=== PATIENT | male | born 2000 | race Caucasian/White ===

== ENCOUNTER 2024-08-14 14:00 | Emergency (ER) | payer SELFPAY ==
[2024-08-14 14:09] VITALS: BP 145/96; PULSE 134; TEMP 37; O2SAT 99; BMI 22.4
--- NOTE | 2024-08-14 14:43 | CT_ITS ---
[address] [address] Patient Name: ISAIAS ESTRELLA MRN: [id number] date: 2000 Sex: M Assigned Patient Location: ER Current Patient Location: Accession/Order Number: [id number] Exam Date: 08/14/2024 15:59 Report Date: 08/14/2024 16:54 At the request of: MARBELLA DELAROSA Procedure: CT abdomen pelvis w con EXAM: CT abdomen pelvis w con REASON FOR EXAM: Male, 24 years, R lower abd pain R leg pain. TECHNIQUE: Computed tomography of the abdomen and pelvis is performed in the axial projection from the lung bases to the pubic symphysis. Sagittal and coronal reconstructed images are performed. Dose reduction techniques were achieved by using automated exposure control and/or adjustment of mA and/or KVP according to patient size and/or use of iterative reconstruction technique. A total of 100 mL Omnipaque 300 IV contrast was given. Study was performed without oral contrast. COMPARISON: CT of the lumbar spine, same date FINDINGS: Lung bases: There is a 4 to 5 mm nodule at the left lung base. There is no pleural effusion. The visualized portions of the heart are unremarkable. Liver: The liver is normal. Gallbladder: The gallbladder is normal. Spleen: The spleen is normal. Pancreas: The pancreas is normal. Adrenal glands: The adrenal glands are normal bilaterally. Right kidney: The kidney is normal in size. There is no renal calculus or hydronephrosis. Left kidney: The kidney is normal in size. There is no renal calculus or hydronephrosis. Stomach: The stomach is normal. Small bowel: The small bowel is normal. Large bowel: There is a moderate amount of stool throughout the colon. Appendix: The appendix is not visualized. No right lower quadrant inflammatory changes are seen to suggest acute appendicitis. Aorta: The aorta is normal. IVC: The IVC is normal. Retroperitoneum: There is enlargement of the right iliac is muscle, with an irregular low-attenuation collection noted. The central portion of the collection measures approximately 7.1 x 4 x 12.5 cm. This extends inferiorly to the insertion of the proximal right femur. Bladder: The bladder is normal. There is a small amount of free fluid within the pelvis. Pelvic organs: Normal prostate gland. Abdominal wall: Normal abdominal wall. Osseous structures: There is bilateral L5 spondylolysis with minimal anterolisthesis at L5-S1. CT/CT abdomen pelvis w con IMPRESSION: Prominent low-attenuation collection within the right iliac is muscle. Differential considerations include hematoma and abscess. This finding was discussed with the emergency physician by the radiologist who interpreted the lumbar spine CT performed the same date. Therefore, an additional critical results notification was not made. Additional findings, as described above. Electronically authenticated by: PAULA RIVERA Date: 08/14/2024 16:54
--- NOTE | 2024-08-14 14:43 | CT_ITS ---
[facility] [place] [id number] Patient Name: ISAIAS ESTRELLA MRN: [id number] date: 2000 Sex: M Assigned Patient Location: ER Current Patient Location: [facility] Accession/Order Number: [id number] Exam Date: 08/14/2024 15:59 Report Date: 08/14/2024 16:48 At the request of: MARBELLA DELAROSA Procedure: CT lumbar spine wo con EXAM: CT lumbar spine wo con HISTORY: low back pain radiating pain into the right groin for one week. COMPARISON: CT of the pelvis on 08/24/2024. TECHNIQUE: Axial CT scans of the lumbar spine were obtained without contrast. MPR images were obtained. Dose reduction techniques were achieved by using: automated exposure control and/or adjustment of mA and /or kV according to patient size and/or use of iterative reconstruction technique. FINDINGS: From T12 to L5, no abnormality. At L5-S1, grade 1 spondylolysis spondylolisthesis of L5 on S1 with mild stenosis of the right neural foramen. SI joints appear intact. An abnormal incompletely imaged low attenuated lesion in the right iliacus muscle is suspicious for an abscess. The visualized retroperitoneum shows no adenopathy. CT/CT lumbar spine wo con IMPRESSION: An abnormal incompletely imaged low attenuated lesion in the right iliacus muscle is suspicious for an abscess. On the CT of the pelvis, it measures about 4.2 x 7.2 x 10 cm. At L5-S1, grade 1 spondylolysis spondylolisthesis of L5 on S1 with mild stenosis of the right neural foramen. Electronically authenticated by: MELLISSA DEL CASTILLO Date: 08/14/2024 16:48
[2024-08-14] MEDS: 0.9 % SODIUM CHLORIDE 1,000 ML 1000 ML IV (15:11)
[2024-08-14 15:13] LABS: Basophils Absolute Auto 0.1 10^3/uL (0.0-0.1); Basophils Percent Auto 0.3 % (0.2-2.0); Eosinophils Percent Auto 0.1 % (0.9-7.0); Hematocrit 36.9 % (42.0-54.0); Hemoglobin 12.7 g/dL (14.0-18.0); Immature Granulocytes Abs Auto 0.11 10^3/uL (0.00-0.03); Immature Granulocytes Pct Auto 0.7 % (0.0-0.5); Lymphocytes Absolute Auto 0.9 10^3/uL (1.2-3.8); Lymphocytes Percent Auto 5.4 % (20.5-60.0); Mean Corpuscular HGB Conc 34.4 g/dL (29.9-35.2); Mean Corpuscular Hemoglobin 33.6 pg (25.9-34.0); Mean Corpuscular Volume 97.6 fL (80.0-94.0); Mean Platelet Volume 8.6 fL (9.5-13.5); Monocytes Absolute Auto 1.1 10^3/uL (0.3-0.8); Monocytes Percent Auto 6.6 % (1.7-12.0); Neutrophils Absolute Auto 13.9 10^3/uL (1.4-6.5); Neutrophils Percent Auto 86.9 % (43.0-75.0); Platelet Count 338 10^3/uL (150-450); Red Blood Count 3.78 10^6/uL (4.70-6.10)
[2024-08-14] MEDS: DIAZEPAM 10 MG/2 ML SYRINGE 2.5 MG IV ×2 (15:13→15:41)
[2024-08-14] MEDS: KETOROLAC TROMETHAMINE 30 MG/ML VIAL 15 MG IVP (15:14)
--- NOTE | 2024-08-14 15:23 | ED_ITS ---
HPI HPI - General Adult General Chief complaint: Extremity Problem, Nontraumatic Stated complaint: LEG PAIN INTO BACK Time Seen by Provider: 08/14/24 14:38 Source: patient Mode of arrival: walk-in Limitations: no limitations History of Present Illness HPI narrative: Patient presents to ED complaining of right groin pain that also is in the right back and right testicle. Patient states he has been evaluated at 2 other hospitals for the same issue. He said he was recently evaluated and told that he had a subdural hematoma and also muscle spasms by the other hospital. He was given gabapentin from 1 hospital and said it is not working. He said his right leg is so tense that he can only lift his leg up and he cannot straighten it out. He said he has pain radiating in his back low back and right testicle. No swelling to the right testicle. He did say he had an ultrasound of the right testicle and it did not show anything abnormal. He denies any urinary difficulties or difficulty with bowel movements. He has normal distal sensation and pulses in both lower extremities. On arrival he is hypertensive tachycardic anxious stressed crying and in pain. Patient's friend who is with him said he has been writhing around crying for the past 8 hours because of this pain. Patient said he did not have any specific injury at work but he does lift heavy things he thought maybe he injured at work but nothing specific no fall no acute known trauma. Related Data Home Medications ?Medication ?Instructions ?Recorded ?Confirmed blood-glucose sensor (FreeStyle 08/14/24 08/14/24 Edbbie 3 Plus Sensor device) gabapentin 100 mg capsule 100 mg PO DAILY 08/14/24 08/14/24 insulin glargine 100 unit/mL (3 15 unit subcut DAILY 08/14/24 08/14/24 mL) subcutaneous pen (Lantus Solostar U-100 Insulin) insulin lispro 100 unit/mL 1 sliding scale dose subcut QID 08/14/24 08/14/24 subcutaneous pen (Humalog KwikPen (U-100) Insulin) Allergies Allergy/AdvReac Type Severity Reaction Status Date / Time No Known Drug Allergies Allergy Verified 08/14/24 14:09 Opioid HPI Opioid Management Most Recent Opioid Data: No Data to Display Review of Systems ROS Status of ROS 10 or more systems reviewed and unremark able except as noted in history and below PFSH PFSH Social History Little interest or pleasure in doing things: not at all Feeling down, depressed, or hopeless: not at all Exam Narrative Exam Narrative: Time Seen: [] Vital Signs: [Per nurse's notes.] General: [Alert] severe distress anxious crying Skin: [Warm, dry, no rash.] Head: [Normocephalic, atraumatic.] Neck: [Supple, trachea midline.] Eye: [Pupils are equal, round and reactive to light, extraocular movements are intact, normal conjunctiva.] Ears, nose, mouth and throat: oral mucosa moist. Cardiovascular: [Regular rate and rhythm, no murmur.] Respiratory: [Lungs are clear to auscultation, respirations are non-labored, breath sounds are equal.] Chest wall: [No tenderness, no deformity.] Gastrointestinal: [Soft, right lower quadrant abdominal pain, non distended, normal bowel sounds.] MSK: 5 out of 5 muscle strength x 4 extremities no calf pain or shabbir. Normal distal pulses and sensation bilateral lower extremities. Patient has tenderness to palpation in the right groin area right lower abdomen and right upper thigh. Lymphatics: [No lymphadenopathy.] Psychiatric: [Cooperative, appropriate mood & affect.] Neurological: [Alert and oriented to person, place, time, and situation, no focal neurological deficit observed.] Constitutional Vital Signs, click to edit/add: Last Vital Signs Temp 98.6 F 08/14/24 14:09 Pulse 112 H 08/14/24 18:36 Resp 22 H 08/14/24 18:36 BP 132/98 H 08/14/24 18:36 Pulse Ox 100 08/14/24 18:36 O2 Del Method Room Air 08/14/24 18:36 Course Vital Signs Vital signs: Vital Signs Temperature 98.6 F 08/14/24 14:09 Pulse Rate 134 H 08/14/24 14:09 Respiratory Rate 26 H 08/14/24 14:09 Blood Pressure 145/96 H 08/14/24 14:09 Pulse Oximetry 99 08/14/24 14:09 Oxygen Delivery Method Room Air 08/14/24 14:09 Temperature 98.6 F 08/14/24 14:09 Pulse Rate 112 H 08/14/24 18:36 Respiratory Rate 22 H 08/14/24 18:36 Blood Pressure 132/98 H 08/14/24 18:36 Pulse Oximetry 100 08/14/24 18:36 Oxygen Delivery Method Room Air 08/14/24 18:36 Medical Decision Making MDM Narrative Medical decision making narrative: Patient's white blood cell count lactate sed rate and CRP were elevated. I had ordered the CAT scan concerned about an intra-abdominal or possibly a septic joint type of picture. The CAT scan came back with an iliac us abscess. Patient was started on IV antibiotics after blood cultures and lactate were drawn. Patient was given IV fluids. He was also given Dilaudid and Valium as needed for pain and muscle spasms. I spoke to the radiologist about the CAT scan report. I then called [facility] and spoke to interventional radiology and they said they can drain this tomorrow after reviewing the films. I then spoke to Dr. Tere Alamo for the hospitalist who will admit the patient for IV antibiotics and management throughout the evening until IR is ready to drain tomorrow. Patient is comfortable with care plan for transfer to [facility]. Patient is stable in the ED. I obtained records from [facility] from his previous ER visit and his blood work was normal and workup was normal at that time. His lab results were different on presentation today. Differential Diagnosis Differential Diagnosis: Infection, sepsis, septic joint, abscess Medical Records Medical records reviewed: Yes I reviewed the patient's medical records Lab Data Lab results reviewed: Yes I reviewed the patient's lab results Labs: Lab Results 08/14/24 Range/Units 14:59 WBC 16.0 H (4.0-11.0) 10^3/uL RBC 3.78 L (4.70-6.10) 10^6/uL Hgb 12.7 L (14.0-18.0) g/dL Hct 36.9 L (42.0-54.0) % MCV 97.6 H (80.0-94.0) fL MCH 33.6 (25.9-34.0) pg MCHC 34.4 (29.9-35.2) g/dL RDW 11.0 (11.0-15.0) % Plt Count 338 (150-450) 10^3/uL MPV 8.6 L (9.5-13.5) fL Neut % (Auto) 86.9 H (43.0-75.0) % Lymph % (Auto) 5.4 L (20.5-60.0) % Arthur % (Auto) 6.6 (1.7-12.0) % Eos % (Auto) 0.1 L (0.9-7.0) % Baso % (Auto) 0.3 (0.2-2.0) % Neut # (Auto) 13.9 H (1.4-6.5) 10^3/uL Lymph # (Auto) 0.9 L (1.2-3.8) 10^3/uL Arthur # (Auto) 1.1 H (0.3-0.8) 10^3/uL Eos # (Auto) 0.0 (0.0-0.7) 10^3/uL Baso # (Auto) 0.1 (0.0-0.1) 10^3/uL Abs Immat Gran (auto) 0.11 H (0.00-0.03) 10^3/uL Imm/Tot Granulo (auto) 0.7 H (0.0-0.5) % ESR 91 H (<=15) mm/hr Sodium 138 (136-145) mmol/L Potassium 4.4 (3.5-5.1) mmol/L Chloride 98 (98-107) mmol/L Carbon Dioxide 27.1 (21.0-32.0) mmol/L Anion Gap 17.3 BUN 9.0 (7.0-18.0) mg/dL Creatinine 1.13 (0.70-1.30) mg/dL Est GFR ( Amer) >60 (>=60 mL/min/1.73m^2) Est GFR (Non-Af Amer) >60 (>=60 mL/min/1.73m^2) BUN/Creatinine Ratio 8.0 Glucose 300 H (74-106) mg/dL Lactate 2.2 H* (0.4-2.0) mmol/L Calcium 9.7 (8.5-10.1) mg/dL Total Bilirubin 0.8 (0.2-1.0) mg/dL AST 14 L (15-37) U/L ALT 25 (16-63) U/L Alkaline Phosphatase 185 H (46-116) U/L Total Creatine Kinase 34 L (39-308) U/L C-Reactive Protein 27.91 H (<=0.50) mg/dL Total Protein 7.4 (6.4-8.2) g/dL Albumin 2.6 L (3.4-5.0) g/dL Globulin 4.8 g/dL Albumin/Globulin Ratio 0.[address] scan - abdomen: Radiologist's impression: ITS Impressions Abdomen/Pelvis CT 08/14/24 14:43 IMPRESSION: Prominent low-attenuation collection within the right iliac is muscle. Differential considerations include hematoma and abscess. This finding was discussed with the emergency physician by the radiologist who interpreted the lumbar spine CT performed the same date. Therefore, an additional critical results notification was not made. Additional findings, as described above. Electronically authenticated by: PAULA RIVERA Date: 08/14/2024 16:[address] 08/14/24 14:43 IMPRESSION: An abnormal incompletely imaged low attenuated lesion in the right iliacus muscle is suspicious for an abscess. On the CT of the pelvis, it measures about 4.2 x 7.2 x 10 cm. At L5-S1, grade 1 spondylolysis spondylolisthesis of L5 on S1 with mild stenosis of the right neural foramen. Electronically authenticated by: MELLISSA DEL CASTILLO Date: 08/14/2024 16:48 ADDENDUM: 08/14/24 1658 IMPRESSION: An abnormal incompletely imaged low attenuated lesion in the right iliacus muscle is suspicious for an abscess. On the CT of the pelvis, it measures about 4. 2 x 7. 2 x 10 cm. At L5-S1, grade 1 spondylolysis spondylolisthesis of L5 on S1 with mild stenosis of the right neural foramen. Electronically authenticated by: MELLISSA DEL CASTILLO Date: 08/14/2024 16:55 Discharge Plan Discharge Chief Complaint: Extremity Problem, Nontraumatic Clinical Impression: Iliopsoas abscess on right Patient Disposition: [facility] Time of Disposition Decision: 18:59 Discharge Location: [facility] Condition: Fair Mode of Transportation: EMS Prescriptions / Home Meds: No Action gabapentin 100 mg capsule 100 mg PO DAILY (DME) FreeStyle Debbie 3 Plus Sensor Device MISCELLANEOUS insulin glargine [Lantus Solostar U-100 Insulin] 100 unit/mL (3 mL) insulin pen 15 unit SUBCUT DAILY insulin lispro [Humalog KwikPen Insulin] 100 unit/mL insulin pen 1 sliding scale dose SUBCUT QID Print Language: Persian Referrals: Physician,Non-Staff, MD [Primary Care Provider] - 1 week
[2024-08-14 15:24] LABS: Erythrocyte Sedimentation Rate 91 mm/hr (<=15)
[2024-08-14 15:37] LABS: Alanine Aminotransferase 25 U/L (16-63); Albumin Globulin Ratio 0.5; Albumin Level 2.6 g/dL (3.4-5.0); Alkaline Phosphatase 185 U/L (46-116); Anion Gap 17.3; Aspartate Amino Transferase 14 U/L (15-37); Bilirubin Total 0.8 mg/dL (0.2-1.0); C Reactive Protein 27.91 mg/dL (<=0.50); Calcium 9.7 mg/dL (8.5-10.1); Carbon Dioxide 27.1 mmol/L (21.0-32.0); Chloride 98 mmol/L (98-107); Estimated GFR (African America >60 (>=60 mL/min/1.73m^2); Estimated GFR (Non-African Ame >60 (>=60 mL/min/1.73m^2); Globulin 4.8 g/dL; Glucose 300 mg/dL (74-106); Potassium 4.4 mmol/L (3.5-5.1); Sodium 138 mmol/L (136-145); Total Protein 7.4 g/dL (6.4-8.2)
[2024-08-14] MEDS: HYDROMORPHONE HCL 1 MG/ML CARTRIDGE IV ×3 (15:37→21:03)
[2024-08-14 15:38] VITALS: BP 119/65; PULSE 108; O2SAT 99
[2024-08-14 15:47] LABS: Lactate/Lactic Acid 2.2 mmol/L (0.4-2.0)
[2024-08-14 16:02] LABS: Creatine Kinase 34 U/L (39-308)
[2024-08-14 17:13] VITALS: BP 129/84; PULSE 112; O2SAT 98
[2024-08-14] MEDS: VANCOMYCIN HCL 1,000 MG in 0.9 % SODIUM CHLORIDE 250 ML 250 MG IV (17:14)
[2024-08-14 18:36] VITALS: BP 132/98; PULSE 112; O2SAT 100
[2024-08-14 19:02] LABS: Lactate/Lactic Acid 1.5 mmol/L (0.4-2.0)
[2024-08-14] MEDS: HYDROMORPHONE HCL 1 MG/ML CARTRIDGE IVP (20:05)
--- NOTE | 2024-08-14 21:13 | PC.NURSE ---
Report to [facility] crew and to [facility] T RN at [phone]. Pt medicated with Dilaudid at 2100 prior to departure.
[2024-08-14 21:15] VITALS: BP 128/67; PULSE 101; TEMP 37.1; O2SAT 96
== END 2024-08-14 21:17 | disposition short-term general hospital (02) ==
PROVIDERS: Emergency Provider Emergency Medicine
DX: K68.12 Psoas muscle abscess (principal); M62.838 Other muscle spasm; M47.817 Spondylosis without myelopathy or radiculopathy, lumbosacral region
CPT/HCPCS: 36415; 72131; 74177; 80053; 82550; 83605; 85025; 85652; 86140; 96365; 96375; 96376; 99285; J1171; J1885; J3360; J3370; Q9967

== ENCOUNTER 2024-09-22 10:10 | Outpatient (REF) | payer BC, SELFPAY ==
[2024-09-22 11:08] LABS: Basophils Absolute Auto 0.1 10^3/uL (0.0-0.1); Basophils Percent Auto 3.1 % (0.2-2.0); Eosinophils Absolute Auto 0.2 10^3/uL (0.0-0.7); Eosinophils Percent Auto 4.5 % (0.9-7.0); Hematocrit 47.6 % (42.0-54.0); Hemoglobin 16.6 g/dL (14.0-18.0); Immature Granulocytes Abs Auto 0.01 10^3/uL (0.00-0.03); Immature Granulocytes Pct Auto 0.2 % (0.0-0.5); Lymphocytes Absolute Auto 1.8 10^3/uL (1.2-3.8); Lymphocytes Percent Auto 39.7 % (20.5-60.0); Mean Corpuscular HGB Conc 34.9 g/dL (29.9-35.2); Mean Corpuscular Hemoglobin 31.7 pg (25.9-34.0); Mean Platelet Volume 9.9 fL (9.5-13.5); Monocytes Absolute Auto 0.3 10^3/uL (0.3-0.8); Monocytes Percent Auto 5.6 % (1.7-12.0); Neutrophils Absolute Auto 2.1 10^3/uL (1.4-6.5); Neutrophils Percent Auto 46.9 % (43.0-75.0); Platelet Count 223 10^3/uL (150-450); Red Blood Count 5.23 10^6/uL (4.70-6.10); Red Cell Distribution Width 12.7 % (11.0-15.0); White Blood Count 4.5 10^3/uL (4.0-11.0)
[2024-09-22 11:44] LABS: Alanine Aminotransferase 24 U/L (16-63); Albumin Level 4.3 g/dL (3.4-5.0); Alkaline Phosphatase 225 U/L (46-116); Aspartate Amino Transferase 14 U/L (15-37); Bilirubin Direct 0.2 mg/dL (0.0-0.2); Bilirubin Total 1.1 mg/dL (0.2-1.0); Estimated GFR (African America >60 (>=60 mL/min/1.73m^2); Estimated GFR (Non-African Ame >60 (>=60 mL/min/1.73m^2); Globulin 4.1 g/dL; Total Protein 8.4 g/dL (6.4-8.2)
== END 2024-09-22 10:11 | disposition home or self-care (01) ==
LOC: LAB 10:10
PROVIDERS: Visit Provider Nurse Practitioner Family
DX: K68.12 Psoas muscle abscess (principal); Z79.2 Long term (current) use of antibiotics
CPT/HCPCS: 36415; 80076; 82565; 85025

== ENCOUNTER 2025-03-28 07:55 | Outpatient (OUT) | payer BC, SELFPAY ==
--- OUTSIDE RECORDS SUMMARY | 2025-03-28 07:58 | XMS_ITS | Clinical Summary ---
Author Organization [facility] Address [address] [place], [place] [id number] Care Team Providers Care Traffic Signal Supervisor Maintenance Name Role Phone Unavailable Primary Care Provider Unavailabl e Social History Tobacco Use Types Packs/Day Years Used Date Smoking Tobacco: Never Assessed Sex and Gender Information Value Date Recorded Sex Assigned at Not on file Legal Sex Male 9:18 AM EST Gender Identity Not on file Sexual Orientation Not on file Plan of Treatment Health Maintenance Due Date Last Done Comments Peds To Adult Transition Initial Discussion 2011 Peds To Adult Transition Annual Assessment 2013 HPV Vaccine (1 - Male 3-dose series) 2014 Anxiety Screening 2017 Depression Screening 2017 HIV Screening 2017 Hepatitis C Screening 2017 DTaP,Tdap,Td Vaccine (1 - Tdap) 2018 Hepatitis B Vaccine (1 of 3 - 19+ 3-dose series) 08/12 Influenza Vaccine (#1) [address] [facility] [place] [address] PPO OOS
--- OUTSIDE RECORDS SUMMARY | 2025-03-28 07:58 | XMS_ITS | Patient Health Record ---
Author Organization [facility] Address [address] [place] [address] Care Team Providers Care School Janitor Name Role Phone None, Unknown or Primary Care Provider Unavailab le Reason For Referral No Information Immunizations Vaccine Route Administration Date Status Comme nts DTaP Unknown 09/09/2004 Administered MMR Unknown 10/22/2003 Administered Polio Virus, IPV Unknown 09/09/2004 Administered Varicella Unknown 10/22/2003 Administered Plan Of Treatment No Information Insurance Providers Payer Name Payer Address Payer Phone Subscriber Number Group Number Insured Name Patient Relationship to Insured Coverage Start Date Coverage End Date BCBS OUT OF STATE [address] [place] [phone] [id number] Matthew Spencer Self - patient is the insured
--- OUTSIDE RECORDS SUMMARY | 2025-03-28 07:58 | XMS_ITS | Clinical Summary ---
Author Organization [facility] Address [address] [place] [address] Phone Care Team Providers Care Sequins Stringer Name Role Phone Unavailable Primary Care Provider Unavailabl e Allergies No known active allergies Medications insulin lispro (HumaLOG) 100 unit/mL injection Inject under the skin 3 times daily (morning, midday, late afternoon). Use per sliding scale Active insulin lispro 100 unit/mL injectionIndica tions:DKA, type 1, not at goal,Right inguinal pain Inject 8 Units under the skin 3 times a day before meals. Take as directed per insulin instructions. 08/06/2024 Active insulin glargine (Lantus) 100 unit/mL injectionIndica tions:DKA, type 1, not at goal,Right inguinal pain Inject 24 Units under the skin once daily at bedtime. Take as directed per insulin instructions. 08/05/2024 Active oxyCODONE (Roxicodone) 5 mg immediate release tabletIndicatio ns:DKA, type 1, not at goal,Right inguinal pain Take 1 tablet (5 mg) by mouth every 8 hours if needed for severe pain (7 - 10). 9 tablet 08/05/2024 Active tiZANidine (Zanaflex) 4 mg tabletIndicatio ns:DKA, type 1, not at goal,Right inguinal pain Take 1 tablet (4 mg) by mouth every 8 hours if needed for muscle spasms. 15 tablet 08/05/2024 Active Active Problems Problem Noted Date Diagnosed Date DKA, type 1, not at goal 08/03/2024 Assessment & Plan (08/04/2024 7:30 PM EST): Assessment & Plan (08/03/2024 4:52 PM EST): Social History Tobacco Use Types Packs/Day Years Used Date Smoking Tobacco: Never Passive Smoke Exposure: Never Smokeless Tobacco: Never Tobacco Cessation:Counseling Given: No Alcohol Use Standard Drinks/Week Comments Never 0 (1 standard drink = 0.6 oz pur e alcohol) [facility] Utilities Answer Date Recorded In the past 12 months has e [employer], gas, oil, or water [employer] threatened to shut off services in your home? No 08/04/2024 Humiliation, Afraid, Rape, and Kick questionnair e Answer Date Recorded Within the last year, have y ou been afraid of your partner or ex-partner? No 08/04/2024 Within the last year, have y ou been humiliated or emotionally abused in other ways by your partner or ex-partner? No Within the last year, have y ou been kicked, hit, slapped, or otherwise physically hurt by your partner or ex-partner? No 08/04/2024 Within the last year, have y ou been raped or forced to have any kind of sexual activity by your partner or ex-partner? No 08/04/2024 AUDIT-C Answer Date Recorded Q1: How often do you have a drink containing alcohol? Never 08/04/2024 Q2: How many drinks containi ng alcohol do you have on a typical day when you are drinking? Patient does not drink Q3: How often do you have si x or more drinks on one occasion? Never 08/04/2024 Overall Financial Resource Strain (CARDIA) Answe r Date Recorded How hard is it for you to pa y for the very basics like food, housing, medical care, and heating? Not very hard 08/04/2024 PHQ-2 Answer Date Recorded Patient Health Questionnaire-2 Score 0 08/04/2024 Hunger Vital Sign Answer Date Recorded Within the past 12 months, y ou worried that your food would run out before you got the money to buy more. Never true 08/04/19 25 Within the past 12 months, t he food you bought just didn't last and you didn't have money to get more. Never true 08/04/2024 PRAPARE - Transportation Answer Date Re corded In the past 12 months, has l ack of transportation kept you from medical appointments or from getting medications? No 07/10 In the past 12 months, has l ack of transportation kept you from meetings, work, or from getting things needed for daily living? No 08/04/2024 Housing Stability Vital Sign Answer Vlad e Recorded In the last 12 months, was t here a time when you were not able to pay the mortgage or rent on time? No 08/04/2024 In the past 12 months, how m any times have you moved where you were living? 0 08/04/2024 At any time in the past 12 m [facility], were you homeless or living in a assisted (including now)? No 08/04/2024 Sex and Gender Information Value Date Recorded Sex Assigned at Not on file Legal Sex Male 3:55 PM EDT Gender Identity Not on file Sexual Orientation Not on file Last Filed Vital Signs Vital Sign Reading Time Taken Comments Blood Pressure 109/67 08/05/2024 5:26 PM EST Pulse 116 08/05/2024 5:26 PM EST Temperature 36.5 C (97.7 F) 08/05/2024 5:26 PM EST Respiratory Rate 16 08/05/2024 5:26 PM EST Oxygen Saturation 96% 08/05/2024 5:26 PM EST Inhaled Oxygen Concentration - - Weight 68 kg (150 lb) 08/04/2024 10:12 AM EST Height 182.9 cm (6') 08/04/2024 10:12 AM EST Body Mass Index 20.34 08/04/2024 10:12 AM EST Plan of Treatment Health Maintenance Due Date Last Done Comments Diabetes: Celiac Disease Screening 1999 Diabetes: Hemoglobin A1C 1999 Diabetes: Urine Protein Screening 1999 HIV Screening 1999 Lipid Panel 1999 TSH Level 1999 Vitamin B-12 1999 Yearly Adult Physical 1999 MMR Vaccines (1 of 1 - Stand mehdi series) 2000 Diabetes: Retinopathy Screening 2009 HPV Vaccines (1 - Male 3-dos e series) 2014 Hepatitis C Screening 2017 Hepatitis B Vaccines (1 of 3 - 19+ 3-dose series) 2018 Pneumococcal Vaccine: Pediat rics and At-Risk Adult Patients (1 of 2 - PCV) 2018 DTaP/Tdap/Td Vaccines (1 - Tdap) 2021 COVID-19 Vaccine (1 - 2023-2 5 season) 2025 Influenza Vaccine (#1) 2025 Zoster Vaccines (1 of 2) 2049 HIB Vaccines Aged Out No longer eligi ble based on patient's age to complete this topic Hepatitis A Vaccines Aged Out No long er eligible based on patient's age to complete this topic IPV Vaccines Aged Out No longer eligi ble based on patient's age to complete this topic Meningococcal Vaccine Aged Out No christiano kash eligible based on patient's age to complete this topic Rotavirus Vaccines Aged Out No longer eligible based on patient's age to complete this topic Insurance Advance Directives For more information, please contact: [phone] (Available ) * Full Code (Latest Code Status on File) Date Activated Date Inactivated Comments 08/03/2024 1:20 PM Question Answer Comments Plan of Care: Code Status Discussion Not Compl eted Decision Maker: Provider Rationale: Patient condition does not warra nt discussion
--- OUTSIDE RECORDS SUMMARY | 2025-03-28 07:58 | XMS_ITS | Clinical Summary ---
Author Organization [facility] Address [address], [address] [place] [address] Care Team Providers Care Pick Out Hand Name Role Phone Roberto Fernandez PA-C Primary Care Provider Allergies No known active allergies Medications ibuprofen (ADVIL;MOTRIN) 800 MG tablet Take 1 tablet by mouth every 8 hours as needed for Pain 30 tablet 03/23/2020 Active gabapentin (NEURONTIN) 300 MG capsule Take 1 capsule by mouth 3 times daily for 30 days. 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 Tobacco dependence 08/21/2024 Back pain 03/10/2013 Hematuria 03/10/2013 Immunizations Immunization Administration Dates Next Due TDaP, ADACEL (age 10y-64y), BOOSTRIX (age 10y+), IM, 0.5mL 04/08/2019 Family History Medical History Relation Name Comments Other Maternal Grandmother Lupus Asthma Mother Rheum Arthritis Mother Breast Cancer Other 1 mat great aunt Diabetes Other 2 extended family Relation Name Status Comments Brother Alive Father Alive Maternal Grandmother Mother Alive Other 1 Other 2 Social History Tobacco Use Types Packs/Day Years Used Date Smoking Tobacco: Every Day Cigarettes 1 6 Smokeless Tobacco: Never Tobacco Cessation:Ready to Q uit: No Alcohol Use Standard Drinks/Week Comments Yes 0 (1 standard drink = 0.6 oz pur e alcohol) socially Interpersonal Safety Domain Source: IP Abuse Scr eening Answer Date Recorded Physical abuse Denies 08/21/2024 Verbal abuse Denies 08/21/2024 Emotional abuse Denies 08/21/2024 Financial abuse Denies 08/21/2024 Sexual abuse Denies 08/21/2024 Sex and Gender Information Value Date Recorded Sex Assigned at Not on file Legal Sex Male 4:13 PM EST Gender Identity Not on file Sexual Orientation Not on file Last Filed Vital Signs Vital Sign Reading Time Taken Comments Blood Pressure 137/89 09/22/2024 3:48 PM EDT Pulse 101 09/22/2024 3:48 PM EDT Temperature 36.2 C (97.1 F) 09/22/2024 3:48 PM EDT Respiratory Rate 18 08/27/2024 5:29 PM EST Oxygen Saturation 97% 08/27/2024 4:03 PM EST Inhaled Oxygen Concentration - - Weight 74.4 kg (164 lb) 09/22/2024 3:48 PM EDT Height 182.9 cm (6') 09/22/2024 3:48 PM EDT Body Mass Index 22.24 09/22/2024 3:48 PM EDT Plan of Treatment Health Maintenance Due Date Last Done Comments A1C test (Diabetic or Prediabetic) 2009 Diabetic foot exam 2009 Lipids 2009 Depression Screen 2011 Varicella vaccine (1 of 2 - 13+ 2-dose series) 2012 HIV screen 2014 HPV vaccine (1 - Male 3-dose series) 2014 Diabetic Alb to Cr ratio (uACR) test 2017 Diabetic retinal exam 2017 Hepatitis C screen 2017 Hepatitis B vaccine (1 of 3 - 19+ 3-dose series) 2018 Pneumococcal 0-49 years Vaccine (1 of 2 - PCV) 2018 Flu vaccine (#1) 02/06/2025 COVID-19 Vaccine (1 - season) 2025 GFR test (Diabetes, CKD 3-4, OR last GFR 15-59) 08/27/2025 08/27/2024, 08/25/2024, 08/22/2024, Additional history exists DTaP/Tdap/Td vaccine (2 - Td or Tdap) 04/08/2029 04/08/2019 Hepatitis A vaccine Aged Out No longe r eligible based on patient's age to complete this topic Hib vaccine Aged Out No longer eligi ble based on patient's age to complete this topic Meningococcal (ACWY) vaccine Aged Out No longer eligible based on patient's age to complete this topic Meningococcal B vaccine Aged Out No l onger eligible based on patient's age to complete this topic Polio vaccine Aged Out No longer elig ible based on patient's age to complete this topic Procedures Procedure Name Priority Date/Time Associated Diagnosis Comments COMPREHENSIVE METABOLIC PANEL W/ REFLEX TO MG FOR LOW K Routine 08/27/2024 7:42 AM EST from Last 3 Months or Most Recently Relevant to Health Maintenance Results * (ABNORMAL) Comprehensive Metabolic Panel w/ Reflex to MG (08/27/2024 7:42 AM EST) Sodium 145 136 - 145 mmol/L 08/27/2024 7:42 AM EST [facility] Potassium 4.1 3.7 - 5.3 mmol/L 08/27/2024 7:42 AM EST [facility] Chloride 107 98 - 107 mmol/L 08/27/2024 7:42 AM EST [facility] CO2 27 20 - 31 mmol/L 08/27/2024 7:42 AM EST [facility] Anion Gap 11 9 - 16 mmol/L 08/27/2024 7:42 AM EST [facility] Glucose 153(H) 74 - 99 mg/dL 08/27/2024 7:42 AM EST [facility] BUN 13 6 - 20 mg/dL 08/27/2024 7:42 AM EST [facility] Creatinine 0.5(L) 0.7 - 1.2 mg/dL 08/27/2024 7:42 AM EST [facility] Est, Glom Filt Rate >90 >60 mL/min/1. 73m2 08/27/2024 7:42 AM EST [facility] Comment: These results are not intended for use in patients <18 years of age. eGFR results are calculated without a race factor using the 2020 CKD-EPI equation. Careful clinical correlation is recommended, particularly when comparing to results calculated using previous equations. The CKD-EPI equation is less accurate in patients with extremes of muscle mass, extra-renal metabolism of creatine, excessive creatine ingestion, or following therapy that affects renal tubular secretion. Calcium 9.4 8.6 - 10.4 mg/dL 08/27/2024 7:42 AM EST [facility] Total Protein 6.6 6.6 - 8.7 g/dL 08/27/2024 7:42 AM EST [facility] Albumin 3.0(L) 3.5 - 5.2 g/dL 08/27/2024 7:42 AM EST [facility] Albumin/Globulin Ratio 0.8(L) 1.0 - 2.5 08/27/2024 7:42 AM EST [facility] Total Bilirubin 0.2 0.0 - 1.2 mg/dL 08/27/2024 7:42 AM EST [facility] Alkaline Phosphatase 107 40 - 129 U/L 08/27/2024 7:42 AM EST [facility] ALT 10 10 - 50 U/L 08/27/2024 7:42 AM EST [facility] AST 21 10 - 50 U/L 08/27/2024 7:42 AM EST [facility] Blood BLOOD SPECIMEN / Unknown 08/27/2024 7:42 AM EST 08/27/2024 7:52 AM EST us Migeul A Yoon MD CHEMISTRY ORDERABLES Final Result [facility] [address] [place] [address], [facility] [phone] from Last 3 Months or Most Recently Relevant to [place] [address] [employer] [place]GAR [id number] Advance Directives * Full Code (Latest Code Status on File) Date Activated Date Inactivated Comments 08/21/2024 9:19 PM 08/27/2024 8:31 PM * Full Code Date Activated Date Inactivated Comments 03/10/2013 4:10 AM 03/11/2013 7:27 PM Care Teams Pick Out Hand Relationship Specialty Start Date End Date Roberto Fernandez, MARILUC [address] [place] [address] PCP - General Physician Manager Cargo 08/24/24
--- OUTSIDE RECORDS SUMMARY | 2025-03-28 07:58 | XMS_ITS | Encounter Summary ---
Author Organization [facility] Address [address], [address] [place] [address] Care Team Providers Care Health Club Manager Name Role Phone Roberto Fernandez PA-C Primary Care Provider Encounter Details Date Type Department Care Team (Late st Contact Info) Description 09/22/2024 Orders Only [facility] [address] [place] [address] Provider, MD Juan F Social History Tobacco Use Types Packs/Day Years Used Date Smoking Tobacco: Every Day Cigarettes 1 6 Smokeless Tobacco: Never Alcohol Use Standard Drinks/Week Comments Yes 0 [...] on file Sexual Orientation Not on file documented as of this encounter Plan of Treatment Not on file documented as of this encounter Procedures Procedure Name Priority Date/Time Associated Diagnosis Comments CBC Routine 09/22/2024 1:29 PM EDT documented in this encounter Results * CBC (09/22/2024 1:29 PM EDT) Blood BLOOD SPECIMEN / Unknown us Historical Provider HEMATOLOGY ORDERABLES Fin al Result documented in this encounter Visit Diagnoses Not on filedocumented in this encounter Care Teams Health Club Manager Relationship Specialty Start Date End Date Roberto Fernandez PA-C [address] [place] [address] PCP - General Physician Patient Care Secretary 08/24/24 documented as of this encounter
--- OUTSIDE RECORDS SUMMARY | 2025-03-28 07:58 | XMS_ITS | Clinical Summary ---
Author Organization [email or web address] Address [id number] [place] [address] Care Team Providers Care Electrician'S Helper Name Role Phone No Pcp, No Pcp Primary Care Provider Unavailabl e Allergies No known active allergies Medications flash glucose sensor (FREESTYLE MILENA 14 DAY SENSOR) kit Use to check blood glucose at least 4 times daily. Change every 14 days. 6 kit 3 07/10/19 24 Active flash glucose scanning reader (FREESTYLE MILENA 14 DAY READER) [facility] Use to check blood glucose at least 4 times daily. 1 each 07/10/19 24 Active pen needle, diabetic (BD KRYSTLE 2ND GEN PEN NEEDLE) 32 gauge x 5/32 needleIndications :Type I diabetes mellitus with hyperosmolarity, uncontrolled ([facility]) 1 each by miscellaneous route 5 (five) times a day. 500 each 3 10/10/19 24 Active blood-glucose sensor (FREESTYLE MILENA 3 SENSOR) deviceIndications :Type I diabetes mellitus with hyperosmolarity, uncontrolled (CMS-HCC) Use 1 sensor every 14 days as directed 7 each 3 10/10/19 24 Active blood sugar diagnostic stripIndications: Type 1 diabetes mellitus with hyperglycemia ([facility]) ONE TOUCH VERIO STRIPS. Use prn if sensor fails 50 strip 3 10/10/19 24 Active lancets (ONETOUCH DELICA PLUS LANCET) 33 gauge miscIndications:T ype 1 diabetes mellitus with hyperglycemia ([facility]) Use prn if sensor fails 100 each 3 10/10/19 24 Active ONETOUCH VERIO TEST STRIPS stripIndications: Type I diabetes mellitus with hyperosmolarity, uncontrolled ([facility]) Use to check glucose levels three times daily in case of sensor failure 300 strip 3 10/10/19 24 Active insulin lispro (HumaLOG KwikPen Insulin) 100 unit/mL insulin penIndications:Ty pe I diabetes mellitus with hyperosmolarity, uncontrolled ([facility]) Inject 5 units plus sliding scale 3 times daily with meals. 30 unit daily max. 27 mL 3 11/07/19 24 Active insulin glargine-yfgn (SEMGLEE,INSULIN GLARG-YFGN,PEN) 100 unit/mL (3 mL) insulin penIndications:Ty pe I diabetes mellitus with hyperosmolarity, uncontrolled ([facility]) Inject 15 units twice daily. 30 mL 3 11/07/19 24 Active Active Problems Problem Noted Date Diagnosed Date Type 1 diabetes mellitus with hyperglycemia 12/08 DKA (diabetic ketoacidosis) 09/13/2023 Hypokalemia 07/09/2023 Hyponatremia 07/09/2023 Dehydration 07/09/2023 Diabetes mellitus, new onset 07/08/2023 Family History Medical History Relation Name Comments No Known Problems Father No Known Problems Mother Relation Name Status Comments Father Alive Mother Alive Social History Tobacco Use Types Packs/Day Years Used Date Smoking Tobacco: Some Days Smokeless Tobacco: Never Tobacco Cessation:Ready to Q uit: Not Asked; Counseling Given: Not Answered Alcohol Use Standard Drinks/Week Comments Yes 0 (1 standard drink = 0.6 oz pur e alcohol) 1 every 3 days [employer] Answer Date Recorded In the past 12 months has [employer], [employer], [employer], or water Blossom threatened to shut off services in your home? No 09/13/2023 Social Connection and Isolat ion Panel [NHANES] Answer Date Recorded In a typical week, how many times do you talk on the phone with family, friends, or neighbors? More than three times a week 09/13/2023 How often do you get togethe r with friends or relatives? More than three times a week 09/13/2023 How often do you attend [facility] or druze services? More than 4 times per year 09/13/2023 Do you belong to any clubs o r organizations such as anabaptism groups, unions, fraternal or athletic groups, or school groups? Yes 09/13/2023 How often do you attend meet ings of the clubs or organizations you belong to? 1 to 4 times per year 09/13/2023 Are you , , di vorced, , never , or living with a partner? Never 09/13/2023 AUDIT-C Answer Date Recorded Q1: How often do you have a drink containing alc ohol? 2-4 times a month 09/13/2023 Q2: How many drinks containi ng alcohol do you have on a typical day when you are drinking? 1 or 2 09/13/2023 Q3: How often do you have si x or more drinks on one occasion? Never 09/13/2023 Overall Financial Resource Strain (CARDIA) Answe r Date Recorded How hard is it for you to pa y for the very basics like food, housing, medical care, and heating? Not hard at all 09/13/2023 PRAPARE - Transportation Answer Date Re corded In the past 12 months, has l ack of transportation kept you from medical appointments or from getting medications? No 01/2024 In the past 12 months, has l ack of transportation kept you from meetings, work, or from getting things needed for daily living? No 09/13/2023 Housing Instability Answer Date Recorde d Are you worried or concerned that in the next two months you may not have stable housing that you own, rent or stay in as a part of a household? No 09/13/2023 Childcare Answer Date Recorded Childcare Unknown 12/18/2018 Employment Answer Date Recorded Employment Unknown 12/18/2018 Hunger Screening Answer Date Recorded Within the past 12 months we worried whether our food would run out before we got money to buy more. Never True 10/10/2023 Within the past 12 months th e food we bought just didn't last and we didn't have money to get more. Never True 10/10/2023 Purpose - Life Answer Date Recorded Purpose and direction in life Unknown Sex and Gender Information Value Date Recorded Sex Assigned at Not on file Legal Sex Male 9:17 AM EDT Gender Identity Not on file Sexual Orientation Not on file Last Filed Vital Signs Vital Sign Reading Time Taken Comments Blood Pressure 111/73 10/10/2023 12:07 PM EDT Pulse 79 10/10/2023 12:07 PM EDT Temperature 36.4 C (97.5 F) 09/15/2023 8:00 AM EST Respiratory Rate 16 09/15/2023 11:00 AM EST Oxygen Saturation 98% 09/15/2023 11:00 AM EST Inhaled Oxygen Concentration - - Weight 76.9 kg (169 lb 9.6 oz) 10/10/2023 12:07 PM EDT Height 182.9 cm (6' 0.01 ) 09/26/2023 5:09 PM ED T Body Mass Index 23 09/26/2023 5:09 PM EDT Plan of Treatment Health Maintenance Due Date Last Done Comments Diabetic Ophthalmology Exam 1999 Depression Screening 2011 Diabetic Foot Exam 2017 Adult BMI Screening 10/09/2024 10/10/2023 Tobacco Screening 10/09/2024 10/10/2023 Influenza Vaccine 03/09/2025 DTaP,Tdap and Td Vaccines (1 0 - Td or Tdap) 04/08/2029 04/08/2019, 12/15/2016, 12/14/2016, Additional history exists Medical Devices Not on file Insurance [facility] Advance Directives * Full Code (Latest Code Status on File) Date Activated Date Inactivated Comments 09/14/2023 10:00 AM 09/15/2023 2:52 PM * Full Code Date Activated Date Inactivated Comments 07/08/2023 9:23 PM 07/10/2023 5:15 PM Care Teams Electrician'S Helper Relationship Specialty Start Date End Date No Pcp, [place] [address] PCP - General Family Medicine 09/01/19
--- OUTSIDE RECORDS SUMMARY | 2025-03-28 08:00 | XMS_ITS | CCD ---
Author Organization [facility] Care Team Providers Care Electric Motor Analyst Name Role Phone AMI MEJIA Attending Unavailabl e Unavailable Primary Care Provider Unavailabl e Unavailable Primary Care Provider Unavailabl e SATYA WEST Attending Unavailable STEFANIE LARA Admitting Unavailable NO PCP, NO PCP Primary Care Unavailable NANCY TELLEZ Attending Unavailable CLEVE CANNON Consulting Unavailable VÍCTOR COOK Consulting Un available MACHELLE POSADA Referring Unavailable NO PCP, NO PCP Primary Care Unavailable NO PCP, NO PCP Primary Care Unavailable EFFIE FOOTE Attending Unavailable CHARITY ARENAS Admitting Unavailab EFFIE Mcdaniels Attending Unavailable EFFIE FOOTE Referring Unavailable NO PCP, NO PCP Primary Care Unavailable MACHELLE POSADA Referring Unavailable NO PCP, NO PCP Primary Care Unavailable AUBREY CHAVEZI P Referring Unavailable NO PCP, NO PCP Primary Care Unavailable SARAH JOHNSON Referring Unavailable NO PCP, NO PCP Primary Care Unavailable Unavailable Primary Care Provider Unavailabl e NO FAMILY, PHYSICIAN Primary Care Provider Unava ilable Senia Fernandez PA-C Emergency Provider ANDRE CABELLO Consulting Unavailable MAUREEN FELDER Admitting Unavailable ANDRE CABELLO Attending Unavailable No Pcp, No Pcp Primary Care Provider Unavailabl e Georgia Burkett MD Admit Provider Jorge England MD Other Provider Jhon Bhardwaj DO Other Provider Unavailable Kanu Fry MD Attending Provider Senia Fernandez PA-C Primary Care Provider [phone] NATALIE CAI Attending Unavailable POTJOSE CRUZ, CLARISSA P Referring Unavailable NO PCP, NO PCP Primary Care Unavailable NO PCP, NO PCP Primary Care Unavailable NO PCP, NO PCP Primary Care Unavailable AOUAD, TRAVON T Referring Unavailable NO PCP, NO PCP Primary Care Unavailable AOUAD, TRAVON T Referring Unavailable NO PCP, NO PCP Primary Care Unavailable NO FAMILY, PHYSICIAN Primary Care Unavailable Senia Fernandez Attending Unavailable Senia Fernandez Admitting Unavailable NO FAMILY, PHYSICIAN Primary Care Unavailable Georgia Burkett Admitting Unavailable Kanu Fry Attending Unavailable Jorge England Consulting Unavailable Jhon Bhardwaj Jr Consulting Unavailable REX YOON Attending Unavailable TONG CHAMPION Admitting Unavailable IRMA, KANU Referring Unavailable SANDY CRISOSTOMO Consulting Unavailable SENIA FERNANDEZ Primary Care Unavailable AOUAD, TRAVON T Consulting Unavailable AOUARashad, TRAVON T Referring Unavailable CIARAN, TRAVON T Attending Unavailable SENIA FERNANDEZ Primary Care Unavailable Machelle Woodward APRN Primary Care Provider Edel De Los Santos APRN Attending Provider [phone] Karen Alvarez RN Attending Provider Machelle Dimas APRN Attending Provider Machelle Woodward APRN Primary Care Provider Edel De Los Santos APRN Attending Provider Medications Current Medications Medication Drug Class(es) Dates Sig (Normalized) Sig (Original) acetaminophen 325 mg oral tablet (5 sources) Start: 08-22-2024 take 4000 mg by mouth every twenty-four hours as needed 650 mg, Oral, EVERY 4 HOURS PRN, Starting on Sun08/22/24 at 1720, Until Discontinued, Pain Mild (1-3), Fever, Fever >100.5 F (38 C), Maximum dose of acetaminophen is 4000 mg from all sources in 24 hours., Recovery(IR) Start: 08-21-2024 1,000 mg, Oral , EVERY 8 HOURS PRN, Starting on Sun08/21/24 at 2123, Until Discontinued, Pain Moderate (4-6), Pain Mild (1-3), Maximum dose of acetaminophen is 4000 mg from all sources in 24 hours. Start: 08-05-2024 take 975 mg by mouth three times daily as needed for pain 975 mg, oral, 3 times daily, First dose on 08/05/24 at 0900, If ordered PRN for pain, nurse is permitted to administer this medication for higher pain scores based on patient preference? Yes Start: 08-03-2024 End: 08-03-2024 Starting on 08/03/24 at 1 752, For 1 dose, Created by cabinet override Start: 08-03-2024 End: 08-05-2024 take 1 tablet by mouth every four hours as needed 650 mg, oral, Every 4 hours PRN, pain mild (1-3), first line, headaches, fever (temp greater than 38.0 C), Starting on 08/03/24 at 1745, If ordered PRN for pain, nurse is permitted to administer this medication for higher pain scores based on patient preference? Yes azithromycin 250 mg oral tablet (1 source) Macrolide Antimicrobial Start: 09-18-2019 End: 09-22-2019 take 1 tablet by mouth once daily azithromycin (ZITHROMAX) 250 MG tablet Take 1 tablet by mouth daily for 4 doses 4 tablet 0 09/18/2019 09/22/2019 Active Blood-Glucose Sensor (Dexcom G7 Sensor) device (6 sources) Start: 03-18-2025 Blood-Glucose Sensor (Dexcom G7 Sensor) device Active 0 .ROUTE .MEDSUPPLY March 18, 2025 5:04pm use with omnipod 5 change every 10 days Start: 12-10-2024 End: 03-18-2025 Blood-Glucose Sensor (Dexcom G7 Sensor) device Discontinued 0 .ROUTE .MEDSUPPLY December 10, 2024 12:00am March 18, 2025 5:05pm use with omnipod 5 change every 10 days Start: 12-10-2024 Blood-Glucose Sensor (Dexcom G7 Sensor) device Active 0 .ROUTE .MEDSUPPLY December 10, 2024 12:00am use with omnipod 5 change every 10 days blood-glucose sensor (FREESTYLE STEPHANIE 3 SENSOR) device (4 sources) Start: 10-10-2023 blood-glucose sensor (FREESTYLE STEPHANIE 3 SENSOR) device Indications: Type I diabetes mellitus with hyperosmolarity, uncontrolled ([facility]) Use 1 sensor every 14 days as directed 7 each 3 10/10/2023 Active cefTRIAXone (ROCEPHIN) 2,000 mg in sterile water 20 mL IV syringe (1 source) Start: 08-25-2024 take 100 mg intravenously every twenty-four hours 2,000 mg, IntraVENous, EVERY 24 HOURS, First dose on 08/25/24 at 1000, Administer as slow IV Push over 5 mins Reconstitute 2 g vials with 19.2 mL of designated diluent to produce a 100mg/mL solution cefTRIAXone (ROCEPHIN) infusion (1 source) Start: 08-25-2024 End: 09-22-2024 cefTRIAXone (ROCEPHIN) infusion Infuse 2,000 mg intravenously every 24 hours for 28 days Till 09/22 then stop and get a CT pel;vis for better eval of the R pelvic abscess resolution -this will help decide further AB - otherwise cbc diff creat LFT weekly - no line draws- ty 56 g 08/25/2024 09/22/2024 Active cephalexin 500 mg oral capsule (1 source) Cephalosporin Antibacterial Start: 03-26-2024 End: 04-02-2024 take 1 capsule by mouth four times daily cephalexin (Keflex) 500 mg capsule Indications: Cellulitis of finger of left hand Take 1 capsule (500 mg) by mouth 4 times a day for 7 days. 28 capsule 03/26/2024 04/02/2024 Active flash glucose scanning reader (FREESTYLE STEPHANIE 14 DAY READER) misc (9 sources) Start: 07-10-2023 flash glucose scanning reader (FREESTYLE STEPHANIE 14 DAY READER) misc Use to check blood glucose at least 4 times daily. 1 each 07/10/2023 Active Start: 07-10-2023 flash glucose scanning reader (FREESTYLE STEPHANIE 14 DAY READER) misc Use to check blood glucose at least 4 times daily. 1 each 0 07/10/2023 Active flash glucose sensor (FREESTYLE STEPHANIE 14 DAY SENSOR) kit (9 sources) Start: 07-10-2023 flash glucose sensor (FREESTYLE STEPHANIE 14 DAY SENSOR) kit Use to check blood glucose at least 4 times daily. Change every 14 days. 6 kit 3 07/10/2023 Active 0.2 ml glucagon 5 mg/ml auto-injector (4 sources) Antihypoglycemic Agent Start: 03-18-2025 Glucago n (Gvoke Hypopen 2-Pack) 1 mg/0.2 mL auto-injector Active 1 MG SUBCUT As Directed 0.4 March 18, 2025 12:00am prn hypoglycemia; may repeat dose in 15 minutes Complies with drug therapy Start: 08-21-2024 Start: 08-03-2024 1 mg, intramus cular, Every 15 min PRN, blood glucose 41 to 70 mg/dL - see comments, For blood glucose 41 to 70 mg/dL and no IV access, Starting on Sun08/03/24 at 2240, Give until blood glucose is 100 mg/dL or greater. If patient DOES NOT HAVE secure IV access & patient is unconscious, NPO or is unable to eat or drink. 1000 ml glucose 100 mg/ml in jection (7 sources) Start: 08-21-2024 Start: 08-21-2024 dextrose bolus 10% 125 mL Start: 08-21-2024 Start: 08-03-2024 12.5 g, intrav enous, Every 15 min PRN, For blood glucose 41 to 70 mg/dL, Starting on Sun08/03/24 at 2240, May repeat until blood glucose level reaches 100 mg/dL or greater. Push 2 - 3 mL/minute if patient has secure IV access. Start: 08-03-2024 End: 08-03-2024 take 70 mg intravenously every hour as needed 150 mL/hr, intravenous, Continuous PRN, Initiate blood glucose less than 70 mg/dL and anion gap still open, Starting on Sun08/03/24 at 1320, For 1 day, Initiate blood glucose less than 70 mg/dL and anion gap still open. Start: 08-03-2024 End: 08-03-2024 take 150 mg intravenously every hour as needed 150 mL/hr, intravenous, Continuous PRN, Initiate when blood glucose less than or equal to 150 mg/dL and anion gap still open, Starting on Sun08/03/24 at 1320, For 1 day, Initiate when blood glucose less than or equal to 150 mg/dL and anion gap still open. insulin glargine (LANTUS) injection vial 34 Units (2 sources) Start: 08-26-2024 insulin glargi ne (LANTUS) injection vial 34 Units Start: 08-23-2024 End: 08-25-2024 inject 34 [IU] by subcutaneous injection once daily 34 Units, SubCUTAneous, DAILY, First dose (after last modification) on 08/23/24 at 0900, Until Discontinued Insulin Glargine-Yfgn (5 sources) Start: 03-18-2025 inject 24 [IU] by subcutaneous injection once daily, then inject 24 [IU] by subcutaneous injection once daily Insulin Glargine-Yfgn (Semglee(Insulin Glarg-Yfgn)Pen) 100 unit/mL (3 mL) insulin pen Active 24 UNIT SUBCUT Daily March 18, 2025 5:00pm If off insulin pump 24 units sq once daily. Must wait 24 hours after last dose before restarting insulin pump Complies with drug therapy Start: 12-17-2024 End: 03-18-2025 Insulin Glargine-Yfgn (Semgl ee(Insulin Glarg-Yfgn)Pen) 100 unit/mL (3 mL) insulin pen Discontinued 32 UNIT SUBCUT Daily December 17, 2024 12:00am March 18, 2025 5:02pm Patient may titrate up to 45 units per day per written instruction from Provider. Start: 12-17-2024 Insulin Glargi ne-Yfgn (Semglee(Insulin Glarg-Yfgn)Pen) 100 unit/mL (3 mL) insulin pen Active 32 UNIT SUBCUT Daily December 17, 2024 12:00am Patient may titrate up to 45 units per day per written instruction from Provider. Complies with drug therapy Start: 12-17-2024 insulin glargine-yfgn (SEMGLEE,INSULIN GLARG-YFGN,PEN) 100 unit/mL (3 mL) insulin pen (3 sources) Start: 11-07-2023 insulin glargi ne-yfgn (SEMGLEE,INSULIN GLARG-YFGN,PEN) 100 unit/mL (3 mL) insulin pen Indications: Type I diabetes mellitus with hyperosmolarity, uncontrolled ([facility]) Inject 15 units twice daily. 30 mL 3 11/07/2023 Active insulin lispro 100 unt/ml injectable solution (20 sources) Insulin Analog Start: 12-17-2024 End: 03-18-2025 Insulin Lispro (Humalog U-100 Insulin) 100 unit/mL solution Active 0 SUBCUT Use as Directed March 18, 2025 5:04pm use with Omnipod 5 insulin delivery device, Expect up to 80 units per day subcutaneously use as directed; Complies with drug therapy Start: 08-22-2024 0-8 Units, Sub CUTAneous, 4 TIMES DAILY BEFORE MEALS & NIGHTLY, First dose on Sun08/22/24 at 1700, Until Discontinued, Medium Dose Corrective Algorithm Glucose: Dose: 70-179 No Insulin 180-249 2 Units 250-299 4 Units 300-349 6 Units Over 349 8 Units and notify physician Administer as soon as possible within 60 minutes of last blood glucose check Start: 08-05-2024 End: 12-10-2024 Insulin Lispro (Humalog Kwik pen Insulin) 100 unit/mL insulin pen Active 0 SUBCUT Use as Directed December 10, 2024 3:45pm icr 1:10 ac tid plus corrective scale 1:40 ac, (hs if >200 half dose) subcutaneously as directed; Complies with drug therapy Start: 08-04-2024 End: 08-05-2024 inject 5 [IU] by subcutaneous injection three times daily before mealtime 5 Units, subcutaneous, 3 times daily before meals, First dose on Sun08/04/24 at 1100 Start: 08-04-2024 inject 2 [IU] by sub cutaneous injection once 2 Units, subcutaneous, Once, On Sun08/04/24 at 0130, For 1 dose Start: 08-03-2024 End: 09-05-2024 inject 8 [IU] by subcutaneous injection three times daily before mealtime insulin lispro 100 unit/mL injection Indications: DKA, type 1, not at goal , Right inguinal pain Inject 8 Units under the skin 3 times a day before meals. Take as directed per insulin instructions. 08/06/2024 09/05/2024 Active Start: 07-31-2024 End: 07-31-2024 Insulin Lispro 100 unit/mL i nsulin pen Discontinued 0 SUBCUT Use as Directed July 31, 2024 1:00am July 31, 2024 5:22pm 5 units with each meal plus corrective scale 1:50 Start: 11-07-2023 insulin lispro (HumaLOG KwikPen Insulin) 100 unit/mL insulin pen Indications: Type I diabetes mellitus with hyperosmolarity, uncontrolled ([facility]) Inject 5 units plus sliding scale 3 times daily with meals. 30 unit daily max. 27 mL 3 11/07/2023 Active Start: 10-10-2023 End: 11-07-2023 insulin lispro (HumaLOG) 100 unit/mL injection Indications: Type I diabetes mellitus with hyperosmolarity, uncontrolled ([facility]) 5+ scale with meals, upto 30 units per day in divided doses. 10 mL 3 10/10/2023 11/07/2023 Discontinued Insulin Tool Crib Manager Cart,Aut,G6/7,Cn tr (Omnipod 5 G6-G7 Intro Kt(Gen5)) cartridge (5 sources) Start: 12-10-2024 Insulin Tool Crib Manager Ca rt,Aut,G6/7,Cntr (Omnipod 5 G6-G7 Intro Kt(Gen5)) cartridge Active 0 SUBCUT .MEDSUPPLY December 10, 2024 12:00am As directed Insulin Pump Cart,Auto,Bt,G6 /7 (Omnipod 5 G6-G7 Pods (Gen 5)) cartridge (5 sources) Start: 12-10-2024 Insulin Pump C art,Auto,Bt,G6/7 (Omnipod 5 G6-G7 Pods (Gen 5)) cartridge Active 0 SUBCUT .MEDSUPPLY December 10, 2024 12:00am change every 48 hours Magic Mouthwash (MIRACLE MOUTHWASH) (2 sources) Start: 09-04-2020 Magic Mouthwas h (MIRACLE MOUTHWASH) Swish and spit 5 mLs 4 times daily as needed for Irritation 30 milliliters (ml) of nystatin suspension at 100,000 units/ml, or 3 million units of nystatin powder. 60 milligrams hydrocortisone. enough diphenhydramine HCL syrup to bring the total volume up to 240 ml. 240 mL 09/04/2020 Active Start: 09-04-2020 Magic Mouthwas h (MIRACLE MOUTHWASH) Swish and spit 5 mLs 4 times daily as needed for Irritation 30 milliliters (ml) of nystatin suspension at 100,000 units/ml, or 3 million units of nystatin powder. 60 milligrams hydrocortisone. enough diphenhydramine HCL syrup to bring the total volume up to 240 ml. 240 mL 0 09/04/2020 Active Ondansetron (1 source) Serotonin-3 Receptor Antagonist Start: 08-03-2024 take 1 tablet by mouth every eight hours as needed ondansetron (Zofran) tablet 4 mg polyethylene glycol 3350 [id number] mg powder for oral solution (1 source) Osmotic Laxative Start: 08-03-2024 17 g, oral, D aily, First dose on 08/03/24 at 1325, Bowel Regimen - for prevention of constipation. predniSONE 20 mg oral tablet (2 sources) Start: 03-26-2024 End: 03-31-2024 take 1 tablet by mouth once daily predniSONE (Deltasone) 20 mg tablet Indications: Cellulitis of finger of left hand Take 1 tablet (20 mg) by mouth once daily for 5 days. 5 tablet 03/26/2024 03/31/2024 Active Start: 09-18-2019 End: 09-23-2019 take 1 tablet by mouth once daily predniSONE (DELTASONE) 50 MG tablet Take 1 tablet by mouth daily for 5 days 5 tablet 0 09/18/2019 09/23/2019 Active 1000 ml sodium chloride 9 mg/ml injection (10 sources) Start: 08-25-2024 IntraVENous, a t 5-250 mL/hr, PRN, if patient receiving piggyback infusions and maintenance fluids are not ordered, Starting on Sun08/25/24 at 0911, For piggyback infusion, administer at same rate as piggyback for a total of 25 mL. Enter 25 mL into dose field and piggyback rate into rate field of order. If piggyback is infusing at a rate less than 100 mL/hr, enter 25 mL into dose field and 100 mL/hr into rate field of order. Start: 08-25-2024 5-40 mL, Intra VENous, PRN, Starting on Sun08/25/24 at 0911, Until Discontinued, Line Care, After every IV line use, For Line Patency: Peripheral IV = 5 mL; Midline or Central Line = 10 mL/lumen. If following IV push medication, administer flush at same rate as the IV push. Flush volume is determined by type of infusion therapy being given. For non-viscous solutions use: Peripheral IV = 5 mL Midline or Central Line = 10 mL/lumen For viscous solutions (i.e. blood components, parenteral nutrition, contrast media, or after obtaining blood sample) use: Peripheral IV = 10 mL Midline or Central Line = 20 mL/lumen Start: 08-21-2024 5-40 mL, Intra VENous, EVERY 12 HOURS SCHEDULED (2 times per day), First dose on Sun08/25/24 at 0930, Until Discontinued, For Line Patency: Peripheral IV = 5 mL; Midline or Central Line = 10 mL/lumen. If following IV push medication, administer flush at same rate as the IV push. Flush volume is determined by type of infusion therapy being given. For non-viscous solutions use: Peripheral IV = 5 mL Midline or Central Line = 10 mL/lumen For viscous solutions (i.e. blood components, parenteral nutrition, contrast media, or after obtaining blood sample) use: Peripheral IV = 10 mL Midline or Central Line = 20 mL/lumen Start: 08-21-2024 Start: 08-21-2024 Start: 08-03-2024 End: 08-03-2024 1,000 mL, intravenous, at 99 9 mL/hr, Administer over 1 Hours, Once, On Sun08/03/24 at 1325, For 1 dose, Recommended initial bolus is 15 - 20 mL/kg/hr sulfamethoxazole 800 mg / trimethoprim 160 mg oral tablet (1 source) Dihydrofolate Reductase Inhibitor Antibacterial, Sulfonamide Antimicrobial Start: 04-08-2019 End: 04-13-2019 take 1 tablet by mouth twice daily sulfamethoxazole-trimethoprim (BACTRIM DS) 800-160 MG per tablet Take 1 tablet by mouth 2 times daily for 5 days 10 tablet 0 04/08/2019 04/13/2019 Active tiZANidine 4 mg oral tablet (3 sources) Central alpha-2 Adrenergic Agonist Start: 08-05-2024 End: 08-05-2024 take 1 tablet by mouth every eight hours for muscle spasms tiZANidine (Zanaflex) 4 mg tablet Indications: DKA, type 1, not at goal , Right inguinal pain Take 1 tablet (4 mg) by mouth every 8 hours if needed for muscle spasms. 15 tablet 08/05/2024 Active Start: 08-05-2024 take 1 tablet by megan th every six hours as needed 4 mg, oral, Every 6 hours PRN, muscle spasms, Starting on Sun08/05/24 at 0830 Completed/Discontinued Medications Medication Drug Class(es) Dates Sig (Normalized) Sig (Original) acetaminophen 300 mg / codeine phosphate 30 mg oral tablet (1 source) Opioid Agonist Start: 12-26-2015 End: 04-08-2019 take 1 tablet by mouth three times daily as needed for pain acetaminophen-codei ne (TYLENOL/CODEINE #3) 300-30 MG per tablet Take 1 tablet by mouth 3 times daily as needed for Pain 10 tablet 0 12/26/2015 04/08/2019 Discontinued (LIST CLEANUP) acetaminophen 325 mg / oxyCODONE hydrochloride 5 mg oral tablet (2 sources) Opioid Agonist Start: 08-04-2024 End: 08-05-2024 take 1 tablet by mouth every four hours as needed 1 tablet, oral, Every 4 hours PRN, pain severe (7-10), first line, Starting on 08/04/24 at 0125, If ordered PRN for pain, nurse is permitted to administer this medication for higher pain scores based on patient preference? Yes Start: 08-03-2024 End: 08-04-2024 take 1 tablet by mouth every six hours as needed 1 tablet, oral, Every 6 hours PRN, pain severe (7-10), first line, Starting on 08/03/24 at 1911, If ordered PRN for pain, nurse is permitted to administer this medication for higher pain scores based on patient preference? Yes amoxicillin 875 mg / clavulanate 125 mg oral tablet (2 sources) Penicillin-class Antibacterial End: 03-23-2020 take 1 tablet by mouth twice daily amoxicillin-clavulanate (AUGMENTIN) 875-125 MG per tablet Take 1 tablet by mouth 2 times daily 0 03/23/2020 Discontinued (LIST CLEANUP) aspirin 81 mg chewable tablet (1 source) Platelet Aggregation Inhibitor, Nonsteroidal Anti-inflammatory Drug Start: 03-23-2020 End: 03-23-2020 aspirin chewable tablet 324 mg Start: 03-23-2020 End: 03-23-2020 aspirin chewable tablet 324 mg azelastine hydrochloride 0.137 mg/actuat metered dose nasal spray (2 sources) Histamine-1 Receptor Antagonist End: 03-23-2020 take 1 spray(s) nasal route twice daily azelastine (ASTELIN) 0.1 % nasal spray 1 spray by Nasal route 2 times daily Use in each nostril as directed 0 03/23/2020 Discontinued (LIST CLEANUP) Blood-Glucose Sensor (Freestyle Stephanie 3 Plus Sensor) device (9 sources) Start: 07-31-2024 End: 03-18-2025 Blood-Glucose Sensor (Freestyle Stephanie 3 Plus Sensor) device Discontinued 0 .ROUTE .MEDSUPPLY 2 July 31, 2024 1:00am March 18, 2025 4:36pm change every 15 days Start: 07-31-2024 Blood-Glucose Sensor (Freestyle Stephanie 3 Plus Sensor) device Active 0 .ROUTE .MEDSUPPLY 2 July 31, 2024 1:00am change every 15 days Start: 07-31-2024 Blood-Glucose Sensor (Freestyle Stephanie 3 Plus Sensor) device Active 0 .ROUTE .MEDSUPPLY July 31, 2024 12:00am change every 15 days ceFAZolin (ANCEF) 1,000 mg in sterile water 10 mL IV syringe (1 source) Start: 08-21-2024 End: 08-24-2024 1,000 mg, IntraVENous, EVERY 8 HOURS, First dose on Demi 08/21/24 at 1945, For 27 doses, Administer over 5 mins. Reconstitute 1 g vial with 10 mL Sterile Water. Withdraw entire contents. ceFAZolin (ANCEF) 2000 mg in sterile water 20 mL IV syringe (1 source) Start: 08-24-2024 End: 08-25-2024 2,000 mg, IntraVENous, EVERY 8 HOURS, First dose on Sun08/24/24 at 1600, For 19 doses, Administer over 5 mins. cyclobenzaprine hydrochloride 10 mg oral tablet (11 sources) Muscle Relaxant Start: 03-23-2020 End: 02-16-2025 take 1 tablet by mouth three times daily as needed Cyclobenzaprine 10 mg tablet Discontinued 10 MG PO Three times daily as needed August 29, 2024 1:00am February 16, 2025 4:07pm for 10 days 0.4 ml enoxaparin sodium 100 mg/ml prefilled syringe (1 source) Low Molecular Weight Heparin Start: 08-22-2024 inject 40 mg by subcutaneous injection once daily 40 mg, SubCUTAneous, DAILY, First dose on Sun08/22/24 at 0900, Until Discontinued, Indication of Use: Treatment-DVT/PE, Administer by deep subCUTAneous injection with pt lying down. Alternate injection sites on abdominal wall. Do not rub site after injection. Check with provider prior to any invasive procedure. 2 ml fentaNYL 0.05 mg/ml injection (2 sources) Opioid Agonist Start: 08-21-2024 End: 08-22-2024 PRN, Starting on Sun08/22/24 at 1636, Until Sun08/22/24 at 1642, Intra-op gabapentin 100 mg oral capsule (17 sources) Anti-epileptic Agent Start: 08-29-2024 End: 02-16-2025 take 3 capsules by mouth three times daily Gabapentin 100 mg capsule Discontinued 300 MG PO Three times daily August 29, 2024 11:33am February 16, 2025 4:07pm Start: 08-26-2024 End: 09-26-2024 take 1 capsule by mouth three times daily gabapentin (NEURONTIN) 300 MG capsule Take 1 capsule by mouth 3 times daily for 30 days. 90 capsule 08/27/2024 09/26/2024 Active Start: 08-21-2024 End: 08-26-2024 take 100 mg by mouth three times daily 100 mg, Oral, 3 TIMES DAILY, First dose on Demi 08/21/24 at 2145, Until Discontinued Start: 08-08-2024 End: 08-29-2024 take 1 capsule by mouth once daily Gabapentin 100 mg capsule Discontinued 100 MG PO Daily August 08, 2024 1:00am August 29, 2024 11:34am 250 ml glucose 50 mg/ml / sodium chloride 9 mg/ml injection (1 source) Start: 08-03-2024 End: 08-03-2024 take 150 mL intravenously every hour as needed 150 mL/hr, intravenous, Continuous PRN, Initiate when blood glucose between 150 mg/dL - 250 mg/dL, Starting on 08/03/24 at 1320, For 1 day, Initiate when blood glucose between 150 mg/dL - 250 mg/dL. 1 ml HYDROmorphone hydrochloride 1 mg/ml cartridge (2 sources) Opioid Agonist Start: 08-23-2024 End: 08-25-2024 take 1 mg by mouth every two hours as needed for pain 1 mg, IntraVENous, EVERY 2 HOURS PRN, Starting on 08/23/24 at 1712, Until 08/25/24 at 1711, Pain Severe (7-10), If oral and IV narcotics ordered, use oral first and only use IV if oral is ineffective or cannot take oral. Do Not give oral and IV within 1 hour of each other unless specifically ordered. Start: 08-21-2024 End: 08-23-2024 take 1 mg by mouth every hour as needed for pain 1 mg, IntraVENous, EVERY 1 HOUR PRN, Starting on Demi 08/21/24 at 2123, Until 08/23/24 at 0930, Pain Severe (7-10), If oral and IV narcotics ordered, use oral first and only use IV if oral is ineffective or cannot take oral. Do Not give oral and IV within 1 hour of each other unless specifically ordered. HYDROmorphone (DILAUDID) 1 mg/mL IGNITION EXPERT (1 source) Start: 08-23-2024 End: 08-23-2024 Patient Bolus (IGNITION EXPERT Dose): 0.2 mg, Lockout Interval: 10 Minutes, Continuous Dose: 0 mg/hr, One Hour Dose Limit: 1 mg, Loading Dose: 0 mg, IntraVENous, CONTINUOUS, Starting on 08/23/24 at 1000 ibuprofen 400 mg oral tablet (7 sources) Nonsteroidal Anti-inflammatory Drug Start: 08-05-2024 End: 08-05-2024 take 400 mg by mouth three times daily at mealtime 400 mg, oral, 3 times daily (morning, midday, late afternoon), First dose on Sun08/05/24 at 0800, For 2 doses, May administer with food to reduce GI upset. Start: 03-23-2020 take 1 tablet by megan every eight hours as needed for pain ibuprofen (ADVIL;MOTRIN) 800 MG tablet Take 1 tablet by mouth every 8 hours as needed for Pain 30 tablet 03/23/2020 Active Start: 01-18-2019 End: 04-08-2019 take 1 tablet by mouth every eight hours as needed for pain ibuprofen (ADVIL;MOTRIN) 800 MG tablet Take 1 tablet by mouth every 8 hours as needed for Pain 20 tablet 0 01/18/2019 04/08/2019 Discontinued (LIST CLEANUP) Start: 12-26-2015 End: 04-08-2019 ibuprofen (ADVIL;MOTRIN) tab let 600 mg Insulin Aspart U-100 (Novolo g Flexpen U-100 Insulin) 100 unit/mL (3 mL) insulin pen (5 sources) Start: 07-31-2024 End: 08-05-2024 Insulin Aspart U-100 (Novolo g Flexpen U-100 Insulin) 100 unit/mL (3 mL) insulin pen Discontinued 0 SUBCUT As Directed July 31, 2024 1:00am August 05, 2024 2:45pm icr 1:15 ac tid plus corrective scale 1:50 ac, (hs if >200 half dose) subcutaneously as directed; Start: 07-31-2024 End: 08-05-2024 Insulin Aspart U-100 (Novolo g Flexpen U-100 Insulin) 100 unit/mL (3 mL) insulin pen Discontinued 0 SUBCUT As Directed July 31, 2024 12:00am August 05, 2024 1:45pm icr 1:15 ac tid plus corrective scale 1:50 ac, (hs if >200 half dose) subcutaneously as directed; Start: 07-31-2024 Insulin Aspart U-100 (Novolog Flexpen U-100 Insulin) 100 unit/mL (3 mL) insulin pen Active 0 SUBCUT As Directed July 31, 2024 12:00am icr 1:15 ac tid plus corrective scale 1:50 ac, (hs if >200 half dose) subcutaneously as directed; 3 ml insulin aspart, human 100 unt/ml pen injector (4 sources) Insulin Analog Start: 07-31-2024 End: 08-05-2024 Insulin Aspart U-100 (Novolog Flexpen U-100 Insulin) 100 unit/mL (3 mL) insulin pen Discontinued 0 SUBCUT As Directed July 31, 2024 1:00am August 05, 2024 2:45pm icr 1:15 ac tid plus corrective scale 1:50 ac, (hs if >200 half dose) subcutaneously as directed; 3 ml insulin glargine 100 unt/ml pen injector (20 sources) Insulin Analog Start: 12-10-2024 End: 12-17-2024 Insulin Glargine (Lantus Solostar U-100 Insulin) 100 unit/mL (3 mL) insulin pen Discontinued 32 UNIT SUBCUT Every morning December 10, 2024 3:46pm December 17, 2024 10:32am Start: 12-10-2024 End: 12-10-2024 Insulin Glargine (Lantus Cat ostar U-100 Insulin) 100 unit/mL (3 mL) insulin pen Discontinued 32 UNIT SUBCUT Before meals December 10, 2024 3:45pm December 10, 2024 3:48pm Start: 12-10-2024 End: 12-10-2024 Insulin Glargine (Lantus Cat ostar U-100 Insulin) 100 unit/mL (3 mL) insulin pen Discontinued 30 UNIT SUBCUT Before meals December 10, 2024 3:19pm December 10, 2024 3:45pm Start: 08-14-2024 End: 12-10-2024 Insulin Glargine (Lantus Cat ostar U-100 Insulin) 100 unit/mL (3 mL) insulin pen Discontinued 15 UNIT SUBCUT Before meals August 14, 2024 1:00am December 10, 2024 3:34pm Start: 08-05-2024 inject 24 [IU] by bazzi bcutaneous injection once daily 24 Units, subcutaneous, Nightly, First dose (after last modification) on Sun08/05/24 at 2099 Start: 08-05-2024 End: 09-04-2024 inject 24 [IU] by subcutaneous injection once daily at bedtime insulin glargine (Lantus) 100 unit/mL injection Indications: DKA, type 1, not at goal , Right inguinal pain Inject 24 Units under the skin once daily at bedtime. Take as directed per insulin instructions. 08/05/2024 09/04/2024 Active Start: 08-04-2024 End: 08-05-2024 inject 20 [IU] by subcutaneous injection once daily 20 Units, subcutaneous, Nightly, First dose (after last modification) on Sun08/04/24 at 2099 Start: 08-03-2024 End: 08-04-2024 inject 15 [IU] by subcutaneous injection every twenty-four hours 15 Units, subcutaneous, Every 24 hours, First dose on Sun08/03/24 at 2099 Start: 07-31-2024 End: 07-31-2024 Insulin Glargine (Lantus Cat ostar U-100 Insulin) 100 unit/mL (3 mL) insulin pen Discontinued 15 UNIT SUBCUT Twice daily July 31, 2024 1:00am July 31, 2024 5:22pm Start: 07-31-2024 End: 08-14-2024 Insulin Glargine (Lantus Cat ostar U-100 Insulin) 100 unit/mL (3 mL) insulin pen Discontinued 15 UNIT SUBCUT Every evening 30 July 31, 2024 1:00am August 14, 2024 11:06pm Start: 09-15-2023 End: 11-07-2023 inject 15 [IU] by subcutaneous injection in the morning insulin glargine (LANTUS, SEMGLEE) 100 unit/mL (3 mL) insulin pen Inject 15 Units under the skin in the morning and 15 Units before bedtime. 15 mL 12 09/15/2023 11/07/2023 Discontinued Insulin Lispro 100 unit/mL insulin pen (5 sources) Start: 07-31-2024 End: 07-31-2024 Insulin Lispro 100 unit/mL insulin pen Discontinued 0 SUBCUT Use as Directed July 31, 2024 1:00am July 31, 2024 5:22pm 5 units with each meal plus corrective scale 1:50 Start: 07-31-2024 End: 07-31-2024 Insulin Lispro 100 unit/mL i nsulin pen Discontinued 0 SUBCUT Use as Directed July 31, 2024 12:00am July 31, 2024 4:22pm 5 units with each meal plus corrective scale 1:50 100 ml insulin, regular, human 1 unt/ml injection (1 source) Insulin Start: 08-03-2024 End: 08-03-2024 0-50 Units/hr (0-50 mL/hr), intravenous, Continuous, Starting on 08/03/24 at 1220, When patient meets DKA criteria (blood glucose > 250 mg/dL, arterial pH 3.3 mmol/L : INITIATE infusion at 0.14 units/kg/hr (max initial rate of 15 units/hr) If CrCl less than 30 mL/min or known CKD: INITIATE at 0.05 units/kg/hr (max initial rate of 7 units/hr) Adjust based on every 1 hour capillary blood glucose results as follows: Step 1: goal decrease in blood glucose within 1 hour after initiation of insulin infusion: 50 mg/dL or 10% of initial blood glucose value (choose a or b based on initial BG drop) Step 1 (a): IF blood glucose decreases by 250 mg/dL continue same rate and reassess hourly Step 2: If within next 1 - 2 hours blood glucose still not less than or equal to 250 mg/dL increase infusion rate by 25% until blood glucose less than 250 mg/dL and notify provider. Step 3: notify provider when blood glucose less than than 250 mg/dL and assess anion gap; If anion gap closed proceed to step 4 Step 3: When blood glucose less than than 250 mg/dL AND anion gap still open (choose a, b, or c based on hourly blood glucose level): Step 3 (a): If blood glucose between 151 and 250 mg/dL and anion gap OPEN continue infusion at the same rate; see dextrose orders for changing fluids to D5W containing fluids; titrate insulin up/down as needed by 25% to maintain blood glucose between 151-250 mg/dL and notify provider; repeat this step as needed and titrate down to a minimum insulin infusion rate of 0.1 units/kg/hr Step 3 (b): If blood glucose between 70-150 mg/dL and AG open decrease insulin infusion rate by 50% notify provider; see dextrose orders for addition of D10; repeat this step as needed and if unable to maintain blood glucose > 150 mg/dL titrate down to a minimum insulin infusion rate of 0.5 units/hr Step 3 (c): If blood glucose less than 70 mg/dL and AG open HOLD insulin infusion for 15 minutes and see dextrose orders for dextrose administration. Recheck blood glucose 15 minutes after dextrose treatment. If glucose is greater than 70 mg/dL, resume insulin drip at 50% of previous rate. If glucose is still less than 70 mg/dL, repeat this step. Notify provider. if unable to maintain blood glucose > 150 mg/dL titrate down to a minimum insulin infusion rate of 0.5 units/hr Step 4 anion gap closed and DKA resolved Do not discontinue unless the following criteria for resolution of DKA is met and discussed with the provider: anion gap closed acidosis reversed tolerates oral feeds a plan for long acting insulin is established If DKA resolved and patient does not tolerate oral feeds/not eating reliably continue intravenous insulin infusion using the Intensive Insulin Algorithm with a target blood glucose of 140-180 mg/dL. IF DKA resolved and patient tolerating oral feeds/eating reliably discontinue insulin infusion 2 hours after administration of long acting SQ insulin. , Protocol Document: , Other Initial Dose: 0.14 unit/kg/hr with max of 15 units/hr and 0.05 units/kg/hr and max of 7 units/hr for ckd or CrCl less than 30 mL/min iohexol (OMNIPaque) 350 mg iodine/mL solution 75 mL (1 source) Start: 08-03-2024 End: 08-03-2024 75 mL, intravenous, Once in imaging, Starting on Sun08/03/24 at 1333, For 1 dose 1 ml ketorolac tromethamine 30 mg/ml cartridge (2 sources) Nonsteroidal Anti-inflammatory Drug, Cyclooxygenase Inhibitor Start: 08-25-2024 End: 08-25-2024 30 mg, IntraVENous, ONCE, 1 dose, On Sun08/25/24 at 2200, Do not administer for more than 5 days. Start: 08-03-2024 End: 08-03-2024 inject 60 mg by intramuscular injection once 60 mg, intramuscular, Once, On Sun08/03/24 at 0850, For 1 dose lidocaine 0.04 mg/mg medicated patch (8 sources) Antiarrhythmic, Amide Local Anesthetic Start: 08-29-2024 End: 02-16-2025 apply 1 dose topically twice daily as needed Lidocaine 4 % adhesive patch,medicated Discontinued 1 PATCH TOPICAL Twice daily as needed August 29, 2024 1:00am February 16, 2025 4:08pm Start: 08-28-2024 End: 09-27-2024 apply 1 dose transdermal route once daily lidocaine 4 % external patch Place 1 patch onto the skin daily 30 each 08/28/2024 09/27/2024 Active Start: 08-26-2024 1 patch, Trans DERmal, Administer over 12 Hours, DAILY, First dose on Sun08/26/24 at 1230, Apply patch to back. The compress engineer's recommendations for the number of patches that can be applied within a 24-hour period varies from 1 to 4 times daily and the duration of application varies from 8 to 24 hours; refer to the compress engineer's labeling for product-specific recommendations. methylPREDNISolone 4 mg oral tablet (2 sources) Corticosteroid Start: 02-16-2025 End: 03-18-2025 take 1 tablet by mouth once Methylprednisolone (Medrol (Oseas)) 4 mg tablets,dose pack Discontinued 0 PO per package directions February 16, 2025 12:00am March 18, 2025 4:36pm PO PER PKG DIR 1 ml morphine sulfate 2 mg/ml cartridge (1 source) Opioid Agonist Start: 08-26-2024 End: 08-26-2024 take 1 dose by mouth every hour 2 mg, IntraVENous, ONCE, 1 dose, On Sun08/26/24 at 1045, If oral and IV narcotics ordered, use oral first and only use IV if oral is ineffective or cannot take oral. Do Not give oral and IV within 1 hour of each other unless specifically ordered. Start: 08-26-2024 End: 08-26-2024 take 1 dose by mouth every hour 2 mg, IntraVENous, ONCE, 1 dose, On Sun08/26/24 at 1045, If oral and IV narcotics ordered, use oral first and only use IV if oral is ineffective or cannot take oral. Do Not give oral and IV within 1 hour of each other unless specifically ordered. naproxen 250 mg oral tablet (1 source) Nonsteroidal Anti-inflammatory Drug Start: 08-22-2024 End: 08-24-2024 250 mg, Oral, 3 TIMES DAILY WITH MEALS, 9 doses, First dose (after last modification) on Sun08/22/24 at 0800, Last dose on Sun08/24/24 at 1700 omeprazole 20 mg delayed release oral capsule (15 sources) Proton Pump Inhibitor Start: 07-31-2024 End: 02-16-2025 take 1 capsule by mouth once daily as needed Omeprazole 20 mg capsule,delayed release(DR/EC) Discontinued 20 MG PO Daily as needed August 29, 2024 11:49am February 16, 2025 4:08pm oxyCODONE hydrochloride 5 mg oral tablet (13 sources) Opioid Agonist Start: 08-22-2024 take 10 mg by mouth every six hours as needed 10 mg, Oral, EVERY 6 HOURS PRN, Starting on Sun08/22/24 at 0833, Until Discontinued, Pain Severe (7-10) Start: 08-22-2024 End: 02-16-2025 take 1 tablet by mouth every six hours Oxycodone 5 mg tablet Discontinued 5 MG PO Every 6 hours August 29, 2024 1:00am February 16, 2025 4:08pm Up to 7 days Start: 08-21-2024 End: 08-22-2024 take 5 mg by mouth every four hours as needed for pain 5 mg, Oral, EVERY 4 HOURS PRN, Starting on Demi 08/21/24 at 2121, Until Sun08/22/24 at 0833, Pain Moderate (4-6) Start: 08-05-2024 End: 08-05-2024 take 1 tablet by mouth every eight hours for pain oxyCODONE (Roxicodone) 5 mg immediate release tablet Indications: DKA, type 1, not at goal , Right inguinal pain Take 1 tablet (5 mg) by mouth every 8 hours if needed for severe pain (7 - 10) for up to 3 days. 9 tablet 08/05/2024 08/05/2024 Discontinued pantoprazole 40 mg delayed release oral tablet (1 source) Proton Pump Inhibitor Start: 08-22-2024 take 40 mg by mouth once daily before breakfast 40 mg, Oral, DAILY BEFORE BREAKFAST, First dose on Sun08/22/24 at 0700, Until Discontinued, Do not crush or break. 100 ml potassium chloride 0.2 meq/ml injection (2 sources) Start: 08-03-2024 End: 08-03-2024 40 mEq, oral, Once, On 08/03/24 at 1720, For 1 dose, Best given with food and plenty of water to minimize gastric irritation. Do not crush, chew, or split. Start: 08-03-2024 End: 08-03-2024 take 20 mEq intravenously every two hours 20 mEq, intravenous, at 50 mL/hr, Administer over 2 Hours, Every 2 hours, First dose on 08/03/24 at 1720, For 2 doses, Total dose is 40 mEq via peripheral line. traMADol hydrochloride 50 mg oral tablet (1 source) Opioid Agonist Start: 08-03-2024 End: 08-05-2024 take 1 tablet by mouth every six hours as needed 50 mg, oral, Every 6 hours PRN, pain moderate (4-6), first line, Starting on 08/03/24 at 1545, If ordered PRN for pain, nurse is permitted to administer this medication for higher pain scores based on patient preference? Yes Problems Active Problems Problem Classification Problem Date Documented Date Episodic/Chronic Abdominal pain (4 sources) Right inguinal pain; Translations: [Right lower quadrant pain] Onset: 08-03-2024 08-05-2024 Episodic Administrative/socia l admission (18 sources) Patient encounter status; Translations: [Dietary counseling and surveillance] 07-31-2024 Episodic Appendicitis and other appendiceal conditions (11 sources) Pelvic abscess; Translations: [Acute appendicitis with perforation and localized peritonitis, with abscess] Onset: 08-14-2024 08-15-2024 Episodic Bacterial infection; unspecified site (6 sources) Infection due to Staphylococcus aureus; Translations: [Methicillin susceptible Staphylococcus aureus infection, unspecified site] Onset: 08-22-2024 08-25-2024 Episodic Deficiency and other anemia (2 sources) Normocytic normochromic anemia; Translations: [Anemia, unspecified] Onset: 08-22-2024 08-22-2024 Episodic Diabetes mellitus with complications (20 sources) Type 2 diabetes mellitus with ketoacidosis without coma; Translations: [Ketoacidosis due to type 1 diabetes mellitus] Onset: 07-08-2023 08-05-2024 Chronic Diabetes mellitus without complication (20 sources) Type 2 diabetes mellitus without complications; Translations: [Type 1 diabetes mellitus] Onset: 07-08-2023 07-31-2024 Chronic Diseases of mouth; excluding dental (2 sources) Uvulitis; Translations: [Stomatitis] Episodic Esophageal disorders (9 sources) Gastroesophageal reflux disease; Translations: [Gastro-esophageal reflux disease without esophagitis] 07-31-2024 Chronic Heart valve disorders (2 sources) Heart murmur; Translations: [Cardiac murmur, unspecified] Onset: 08-21-2024 08-27-2024 Episodic Malaise and fatigue (1 source) Fatigue Onset: 07-08-2023 Episodic Neoplasms of unspecified nature or uncertain behavior (2 sources) Thrombocytosis; Translations: [Thrombocytosis] Onset: 08-25-2024 08-25-2024 Episodic Nonspecific chest pain (1 source) Chest pain; Translations: [Chest pain, unspecified type] Episodic Open wounds of extremities (1 source) Puncture wound without foreign body, right foot, initial encounter; Translations: [Puncture wound of right foot, initial encounter] Episodic Other aftercare (13 sources) Long-term current use of insulin; Translations: [long term care social worker (current) use of insulin] 07-31-2024 Episodic Other aftercare (5 sources) FPC (current) use of insulin; Translations: [Long-term (current) use of insulin] 07-31-2024 Episodic Other aftercare (1 source) long term care social worker (current) use of antibiotics; Translations: [FPC (current) use of antibiotics] Onset: 09-01-2024 Episodic Other connective tissue disease (8 sources) Pain in lower limb; Translations: [Pain in leg, unspecified] 08-08-2024 Episodic Other connective tissue disease (3 sources) Pain in leg, unspecified; Translations: [Pain in limb] Onset: 08-14-2024 08-21-2024 Episodic Other connective tissue disease (6 sources) Iliopsoas abscess; Translations: [Psoas muscle abscess] Onset: 08-21-2024 08-25-2024 Episodic Other connective tissue disease (2 sources) Psoas muscle abscess; Translations: [Psoas muscle abscess] Onset: 08-24-2024 Episodic Other connective tissue disease (1 source) Pain in right thigh; Translations: [Pain in right thigh] Onset: 08-08-2024 Episodic Other connective tissue disease (4 sources) Plantar fasciitis; Translations: [Plantar fascial fibromatosis] 02-16-2025 Episodic Other lower respiratory disease (1 source) Shortness of breath; Translations: [Shortness of breath] Onset: 09-13-2023 Episodic Other lower respiratory disease (1 source) Shortness of breath Onset: 09-13-2023 Episodic Other lower respiratory disease (2 sources) Multiple nodules of lung; Translations: [Other nonspecific abnormal finding of lung field] Onset: 08-22-2024 08-22-2024 Episodic Other nervous system disorders (2 sources) Walking disability; Translations: [Difficulty in walking, not elsewhere classified] Onset: 08-21-2024 08-21-2024 Chronic Other nutritional; endocrine; and metabolic disorders (1 source) Abnormal weight loss; Translations: [Abnormal weight loss] Onset: 07-08-2023 Episodic Other nutritional; endocrine; and metabolic disorders (1 source) Weight loss Onset: 07-08-2023 Episodic Residual codes; unclassified (18 sources) Body mass index 20-24 - normal; Translations: [Body mass index (BMI) 22.0-22.9, adult] 07-31-2024 Episodic Residual codes; unclassified (4 sources) Body mass index (BMI) 22.0-22.9, adult; Translations: [Body Mass Index between 19-24, adult] 07-31-2024 Episodic Residual codes; unclassified (7 sources) Pain; Translations: [Pain, unspecified] 08-15-2024 Episodic Residual codes; unclassified (4 sources) Pain, unspecified; Translations: [Generalized pain] Onset: 08-14-2024 08-21-2024 Episodic Residual codes; unclassified (1 source) Body mass index (BMI) 24.0-24.9, adult; Translations: [Body Mass Index between 19-24, adult] 12-10-2024 Episodic Septicemia (except in labor) (10 sources) Sepsis; Translations: [Sepsis, unspecified organism] Onset: 08-14-2024 08-14-2024 Episodic Substance-related disorders (2 sources) Tobacco dependence syndrome; Translations: [Nicotine dependence, unspecified, uncomplicated] Onset: 08-21-2024 08-21-2024 Chronic Syncope (1 source) Syncope Onset: 09-13-2023 Episodic Unclassified (1 source) Abnormal Lab Onset: 09-13-2023 Unclassified (1 source) elevated blood sugar, syncopal episode, sob Onset: 09-13-2023 Past or Other Problems Problem Classification Problem Date Documented Da te Episodic/Chronic Fluid and electrolyte disorders (20 sources) Hypokalemia; Translations: [Hypokalemia] Onset: 07-08-2023 07-09-2023 Episodic Genitourinary symptoms and ill-defined conditions (5 sources) Blood in urine; Translations: [Hematuria, unspecified] Onset: 03-10-2013 Episodic Skin and subcutaneous tissue infections (1 source) Cellulitis of finger of left hand; Translations: [Cellulitis of left finger] 03-26-2024 Episodic Spondylosis; intervertebral disc disorders; other back problems (5 sources) Backache; Translations: [Dorsalgia, unspecified] Onset: 03-10-2013 Episodic Results Test Name Value Interpretation Reference Range Facility HbA1c HPLC (Bld) [Mass fract ion]on 12-10-2024 HbA1c (Bld) [Mass fraction] 10.4 % [facility] No Panel Informationon 12-10 Bedside Glucose [address] [facility] [address] ABDOMEN PELVIS W IV CONTR [place] 09-28-2024 CT ABDOMEN PELVIS W IV CONTRAST EXAMINATION: CT OF THE ABDOMEN AND PELVIS WITH CONTRAST 09/25/2024 4:04 pm TECHNIQUE: CT of the abdomen and pelvis was performed with the administration of intravenous contrast. Multiplanar reformatted images are provided for review. Automated exposure control, iterative reconstruction, and/or weight based adjustment of the mA/kV was utilized to reduce the radiation dose to as low as reasonably achievable. COMPARISON: Pelvic CT dated 08/26/[address]24. abdominopelvic CT dated 08/14/2024. HISTORY: ORDERING SYSTEM PROVIDED HISTORY: Abscess of right iliac fossa TECHNOLOGIST PROVIDED HISTORY: STAT Creatinine as needed:->No look for resolution of the pelvic abscess - refer to past CT - if all gone, then IR to pull the drain - ty FINDINGS: Lower Chest: Multiple sub 6 mm solid pulmonary nodules are present the bilateral lung bases, similar to comparison. visualized portions of the heart are unremarkable. No pericardial or pleural effusions. Organs: The liver, spleen, pancreas, bilateral adrenal glands, and bilateral kidneys are unremarkable. Gallbladder is incompletely distended, without sludge or stone; no intra or extrahepatic biliary ductal dilation. GI/Bowel: Stomach is distended with ingested material, otherwise unremarkable. No enteric contrast was administered. No focal bowel wall thickening or obstruction. Appendix is unremarkable. Pelvis: Decreased yet persistent asymmetric soft tissue prominence in the region of the right iliacus and iliopsoas musculature, without identifiable abscess. There has been interval repositioning/retraction of percutaneous pigtail catheter. Near complete resolution of free fluid in the pelvis. Urinary bladder is unremarkable. No bulky lymphadenopathy. Peritoneum/Retroperitone um: Near complete resolution of previously identified right lower quadrant mesenteric lymphadenopathy; no bulky lymphadenopathy on today's exam. Aorta is normal in caliber. No ascites. Bones/Soft Tissues: Small fat containing umbilical hernia. No acute or suspicious bony findings. IMPRESSION: 1. Persistent asymmetric soft tissue prominence of the right iliac fossa without definable fluid collection. 2. Interval repositioning of pigtail drainage catheter, which no longer terminates in a fluid collection. 3. Multiple bibasilar sub 6 mm solid pulmonary nodules, similar to comparison. Fleischner society criteria do not apply given patient age, recommend follow-up based on clinical patient risk stratification. Interpreted by: Mathew Kilgore MD Signed by: Mathew Kilgore MD 09/28/24 Final result Normal [facility] CBC AND AUTO DIFFon 09-11-19 ABSOLUTE BASOPHIL 0.0 X10E9/L Normal 0.0-0.2 [facility] Comment on above: Performed By: #### C BCA, PARALEGAL SUPERVISOR, LIVR #### [facility] ([id number]) [address] [place] [id number] ABSOLUTE NEUTROPHIL 3.1 X10E9/L Normal 1.5-6.6 [facility] Comment on above: Performed By: #### C BCA, PARALEGAL SUPERVISOR, LIVR #### [facility] ([id number]) [address] [place] [id number] Basophils/100 WBC (Bld) 0.6 % Normal [facility] Comment on above: Performed By: #### C PRECIOUS, PARALEGAL SUPERVISOR, LIVR #### [facility] ([id number]) [address] [place] [id number] Eosinophils (Bld) [#/Vol] 0.1 10*3/uL Normal 0.0-0.4 [facility] Comment on above: Performed By: #### C BCA, PARALEGAL SUPERVISOR, LIVR #### [facility] ([id number]) [address] [place] [id number] Eosinophils/100 WBC (Bld) 2.6 % Normal [facility] Comment on above: Performed By: #### C BCA, PARALEGAL SUPERVISOR, LIVR #### [facility] ([id number]) [address] [place] [id number] Erythrocyte distribution width (RBC) [Ratio] 14.5 % Normal 11.5-15.0 [facility] Comment on above: Performed By: #### C BCA, PARALEGAL SUPERVISOR, LIVR #### [facility] ([id number]) [address] [place] [address] [id number] Hematocrit (Bld) [Volume fraction] 37.9 % Low 39-49 [facility] Comment on above: Performed By: #### C BCA, PARALEGAL SUPERVISOR, LIVR #### [facility] ([id number]) [address] [place] [address] 79712 Hemoglobin (Bld) [Mass/Vol] 13.1 g/dL Normal 13.0-17.0 [facility] Comment on above: Performed By: #### C BCA, PARALEGAL SUPERVISOR, LIVR #### [facility] ([id number]) [address] [place] [address] 52071 Lymphocytes (Bld) [#/Vol] 1.8 10*3/uL Normal 1.0-3.5 [facility] Comment on above: Performed By: #### C BCA, PARALEGAL SUPERVISOR, LIVR #### [facility] ([id number]) [address] [place] [address] 28425 Lymphocytes/100 WBC (Bld) 33.0 % Normal [facility] Comment on above: Performed By: #### C BCA, PARALEGAL SUPERVISOR, LIVR #### [facility] ([id number]) [address] [place] [address] 35619 MCH (RBC) [Entitic mass] 32.5 pg Normal 27-34 [facility] Comment on above: Performed By: #### C BCA, PARALEGAL SUPERVISOR, LIVR #### [facility] ([id number]) [address] [place] [address] 05137 MCHC (RBC) [Mass/Vol] 34.5 g/dL Normal 32-36 [facility] Comment on above: Performed By: #### C BCA, PARALEGAL SUPERVISOR, LIVR #### [facility] ([id number]) [address] [place] [address] 62886 MCV (RBC) [Entitic vol] 94 fL Normal 80-100 [facility] Comment on above: Performed By: #### C BCA, PARALEGAL SUPERVISOR, LIVR #### [facility] ([id number]) [address] [place] [address] 45682 Monocytes (Bld) [#/Vol] 0.4 10*3/uL Normal 0-0.9 [facility] Comment on above: Performed By: #### C BCA, PARALEGAL SUPERVISOR, LIVR #### [facility] ([id number]) [address] [place] [address] 61639 Monocytes/100 WBC (Bld) 6.7 % Normal [facility] Comment on above: Performed By: #### C BCA, PARALEGAL SUPERVISOR, LIVR #### [facility] ([id number]) [address] [place] [address] 86121 Neutrophils/100 WBC (Bld) 57.1 % Normal [facility] Comment on above: Performed By: #### C BCA, PARALEGAL SUPERVISOR, LIVR #### [facility] ([id number]) [address] [place] [address] 77300 Platelet mean volume (Bld) [Entitic vol] 8.4 fL Normal 7-12 [facility] Comment on above: Performed By: #### C BCA, PARALEGAL SUPERVISOR, LIVR #### [facility] ([id number]) [address] [place] [address] 33527 Platelets (Bld) [#/Vol] 217 10*3/uL Normal 150-450 [facility] Comment on above: Performed By: #### C BCA, PARALEGAL SUPERVISOR, LIVR #### [facility] ([id number]) [address] [place] [address] 18241 RBC COUNT 4.02 X10E12/L Low 4.10-5.70 [facility] Comment on above: Performed By: #### C BCA, PARALEGAL SUPERVISOR, LIVR #### [facility] ([id number]) [address] [place] [address] 24020 WBC (Bld) [#/Vol] 5.5 10*3/uL Normal 4.0-11.0 [facility] Comment on above: Performed By: #### C BCA, PARALEGAL SUPERVISOR, LIVR #### [facility] ([id number]) [address] [place] [address] 55297 CREATININEon 09-10-2024 Creatinine [Mass/Vol] 0.70 mg/dL Normal 0.70-1.20 [facility] Comment on above: Result Comment: METH OD TRACEABLE TO IDMS STANDARD Performed By: #### C BCA, PARALEGAL SUPERVISOR, LIVR #### [facility] ([id number]) [address] [place] [address] 43612 eGFR (CKD-EPI) NON-RACE DEPENDENT >90 Normal >59 [facility] Comment on above: Result Comment: Reported eGFR is based on the CKD-EPI 2020 equation that does not use a race coefficient. Performed By: #### C BCA, PARALEGAL SUPERVISOR, LIVR #### [facility] ([id number]) [address] [place] [address] 06592 LIVER PANELon 09-10-2024 Albumin [Mass/Vol] 3.9 g/dL Normal 3.2-5.3 [facility] Comment on above: Performed By: #### C BCA, PARALEGAL SUPERVISOR, LIVR #### [facility] ([id number]) [address] [place] [address] 87849 ALP [Catalytic activity/Vol] 104 U/L Normal 39-130 [facility] Comment on above: Performed By: #### C BCA, PARALEGAL SUPERVISOR, LIVR #### [facility] ([id number]) [address] [place] [address] 51588 ALT [Catalytic activity/Vol] 22 U/L Normal 0-40 [facility] Comment on above: Performed By: #### C BCA, PARALEGAL SUPERVISOR, LIVR #### [facility] ([id number]) [address] [place] [address] 36563 AST [Catalytic activity/Vol] 20 U/L Normal 0-41 [facility] Comment on above: Performed By: #### C BCA, PARALEGAL SUPERVISOR, LIVR #### [facility] ([id number]) [address] [place] [address] 64203 Bilirubin [Mass/Vol] 0.5 mg/dL Normal 0.3-1.2 [facility] Comment on above: Performed By: #### C BCA, PARALEGAL SUPERVISOR, LIVR #### [facility] ([id number]) [address] [place] [address] 68084 Bilirubin.indirect [Mass/Vol] mg/dL Normal 0.0-0.4 [facility] Comment on above: Performed By: #### C BCA, PARALEGAL SUPERVISOR, LIVR #### [facility] ([id number]) [address] [place] [address] 45327 Protein [Mass/Vol] 7.1 g/dL Normal 6.0-8.0 [facility] Comment on above: Performed By: #### C BCA, PARALEGAL SUPERVISOR, LIVR #### [facility] ([id number]) [address] [place] [address] 61891 CBC AND AUTO DIFFon 09-01-19 25 ABSOLUTE BASOPHIL 0.1 X10E9/L Normal 0.0-0.2 [facility] Comment on above: Performed By: #### C RT, LIVR, CBCA #### [facility] ([id number]) [address] [place] [address] 92593 ABSOLUTE NEUTROPHIL 1.7 X10E9/L Normal 1.5-6.6 [facility] Comment on above: Performed By: #### C RT, LIVR, CBCA #### [facility] ([id number]) [address] [place] [address] 29372 Basophils/100 WBC (Bld) 2.3 % Normal [facility] Comment on above: Performed By: #### C RT, LIVR, CBCA #### [facility] ([id number]) [address] [place] [address] 79311 Eosinophils (Bld) [#/Vol] 0.1 10*3/uL Normal 0.0-0.4 [facility] Comment on above: Performed By: #### C RT, LIVR, CBCA #### [facility] ([id number]) [address] [place] [address] 51159 Eosinophils/100 WBC (Bld) 4.1 % Normal [facility] Comment on above: Performed By: #### C RT, LIVR, CBCA #### [facility] ([id number]) [address] [place] [address] 49863 Erythrocyte distribution width (RBC) [Ratio] 14.9 % Normal 11.5-15.0 [facility] Comment on above: Performed By: #### C RT, LIVR, CBCA #### [facility] ([id number]) [address] [place] [address] 81066 Hematocrit (Bld) [Volume fraction] 37.8 % Low 39-49 [facility] Comment on above: Performed By: #### C RT, LIVR, CBCA #### [facility] ([id number]) [address] [place] [address] 76512 Hemoglobin (Bld) [Mass/Vol] 12.8 g/dL Low 13.0-17.0 [facility] Comment on above: Performed By: #### C RT, LIVR, CBCA #### [facility] ([id number]) [address] [place] [address] 40815 Lymphocytes (Bld) [#/Vol] 1.2 10*3/uL Normal 1.0-3.5 [facility] Comment on above: Performed By: #### C RT, LIVR, CBCA #### [facility] ([id number]) [address] [place] [address] 15293 Lymphocytes/100 WBC (Bld) 34.4 % Normal [facility] Comment on above: Performed By: #### C RT, LIVR, CBCA #### [facility] ([id number]) [address] [place] [address] 02582 MCH (RBC) [Entitic mass] 32.2 pg Normal 27-34 [facility] Comment on above: Performed By: #### C RT, LIVR, CBCA #### [facility] ([id number]) [address] [place] [address] 35594 MCHC (RBC) [Mass/Vol] 34.0 g/dL Normal 32-36 [facility] Comment on above: Performed By: #### C RT, LIVR, CBCA #### [facility] ([id number]) [address] [place] [address] 38789 MCV (RBC) [Entitic vol] 95 fL Normal 80-100 [facility] Comment on above: Performed By: #### C RT, LIVR, CBCA #### [facility] ([id number]) [address] [place] [address] 82610 Monocytes (Bld) [#/Vol] 0.3 10*3/uL Normal 0-0.9 [facility] Comment on above: Performed By: #### C RT, LIVR, CBCA #### [facility] ([id number]) [address] [place] [address] 90802 Monocytes/100 WBC (Bld) 9.7 % Normal [facility] Comment on above: Performed By: #### C RT, LIVR, CBCA #### [facility] ([id number]) [address] [place] [address] 64412 Neutrophils/100 WBC (Bld) 49.5 % Normal [facility] Comment on above: Performed By: #### C RT, LIVR, CBCA #### [facility] ([id number]) [address] [place] [address] 44170 Platelet mean volume (Bld) [Entitic vol] 7.9 fL Normal 7-12 [facility] Comment on above: Performed By: #### C RT, LIVR, CBCA #### [facility] ([id number]) [address] [place] [address] 05213 Platelets (Bld) [#/Vol] 410 10*3/uL Normal 150-450 [facility] Comment on above: Performed By: #### C RT, LIVR, CBCA #### [facility] ([id number]) [address] [place] [address] 52024 RBC COUNT 3.98 X10E12/L Low 4.10-5.70 [facility] Comment on above: Performed By: #### C RT, LIVR, CBCA #### [facility] ([id number]) [address] [place] [address] 48313 WBC (Bld) [#/Vol] 3.4 10*3/uL Low 4.0-11.0 [facility] Comment on above: Performed By: #### C RT, LIVR, CBCA #### [facility] ([id number]) [address] [place] [address] 79307 CREATININEon 09-01-2024 Creatinine [Mass/Vol] 0.63 mg/dL Low 0.70-1.20 [facility] Comment on above: Result Comment: METH OD TRACEABLE TO IDMS STANDARD Performed By: #### C RT, LIVR, CBCA #### [facility] ([id number]) [address] [place] [address] 07785 eGFR (CKD-EPI) NON-RACE DEPENDENT >90 Normal >59 [facility] Comment on above: Result Comment: Reported eGFR is based on the CKD-EPI 2020 equation that does not use a race coefficient. Performed By: #### C RT, LIVR, CBCA #### [facility] ([id number]) [address] [place] [address] 99958 LIVER PANELon 09-01-2024 Albumin [Mass/Vol] 3.7 g/dL Normal 3.2-5.3 [facility] Comment on above: Performed By: #### C RT, LIVR, CBCA #### [facility] ([id number]) [address] [place] [address] 98197 ALP [Catalytic activity/Vol] 166 U/L High 39-130 [facility] Comment on above: Performed By: #### C RT, LIVR, CBCA #### [facility] ([id number]) [address] [place] [address] 37200 ALT [Catalytic activity/Vol] 23 U/L Normal 0-40 [facility] Comment on above: Performed By: #### C RT, LIVR, CBCA #### [facility] ([id number]) [address] [place] [address] 22040 AST [Catalytic activity/Vol] 18 U/L Normal 0-41 [facility] Comment on above: Performed By: #### C RT, LIVR, CBCA #### [facility] ([id number]) [address] [place] [address] 30235 Bilirubin [Mass/Vol] 0.3 mg/dL Normal 0.3-1.2 [facility] Comment on above: Performed By: #### C RT, LIVR, CBCA #### [facility] ([id number]) [address] [place] [address] 16834 Bilirubin.direct [Mass/Vol] 0.1 mg/dL Normal 0.0-0.4 [facility] Comment on above: Performed By: #### C RT, LIVR, CBCA #### [facility] ([id number]) [address] [facility], [place] [address] Protein [Mass/Vol] 7.7 g/dL Normal 6.0-8.0 [facility] Comment on above: Performed By: #### C RT, LIVR, CBCA #### [facility] ([id number]) [address] [facility], [place] [address] C-Reactive Proteinon 025 CRP High sensitivity method [Mass/Vol] 30.7 mg/L High 0.0 - 5.0 mg/L [facility] CRP [Mass/Vol] 30.7 mg/L High 0.0-5.0 [facility] Comment on above: Performed By: #### C MPX, CRP, CDP #### [facility] [place] [id number] Network Operations Lead: Juan Daniel Chappell MD CBC with Auto Differentialon 08-27-2024 Basophils (Bld) [#/Vol] 0.06 10*3/uL [facility] Basophils/100 WBC (Bld) 2 % 0 - 2 % [facility] Eosinophils (Bld) [#/Vol] 0.19 10*3/uL [facility] Eosinophils/100 WBC (Bld) 5 % High 1 - 4 % [facility] Erythrocyte distribution width (RBC) [Ratio] 12.3 % 11.8 - 14.4 % [facility] Hematocrit (Bld) [Volume fraction] 31.4 % Low 40.7 - 50.3 % [facility] Hemoglobin (Bld) [Mass/Vol] 10.7 g/dL Low 13.0 - 17.0 g/dL [facility] Immature granulocytes (Bld) [#/Vol] 0.04 10*3/uL [facility] Immature granulocytes/100 WBC (Bld) 1 % High 0 [facility] Interpretation and review of laboratory results Abnormal [facility] Lymphocytes/100 WBC (Bld) 38 % 24 - 43 % [facility] Lymphocytes/100 WBC (Bld) 1.49 % [facility] MCH (RBC) [Entitic mass] 31.6 pg 25.2 - 33.5 pg [facility] MCHC (RBC) [Mass/Vol] 34.1 g/dL 28.4 - 34.8 g/dL [facility] MCV (RBC) [Entitic vol] 92.6 fL 82.6 - 102.9 fL [facility] Monocytes/100 WBC (Bld) 10 % 3 - 12 % [facility] Monocytes/100 WBC (Bld) 0.40 % [facility] Neutrophils/100 WBC (Bld) 44 % 36 - 65 % [facility] Nucleated RBC/100 WBC (Bld) [Ratio] 0.0 % 0.0 per 100 WBC [facility] Platelet mean volume (Bld) [Entitic vol] 8.3 fL 8.1 - 13.5 fL [facility] Platelets (Bld) [#/Vol] 542 10*3/uL High [facility] RBC (Bld) [#/Vol] 3.39 10*6/uL Low 4.21 - 5.77 m/uL [facility] Segmented neutrophils/100 WBC (Bld) 1.71 % [facility] WBC other (Bld) [#/Vol] 3.9 [facility] CBC with Diffon 08-27-2024 Abs. Basophil 0.06 k/uL Normal 0.00-0.20 [facility] Comment on above: Performed By: #### C MPX, CRP, CDP #### [facility] [place], [place] [id number] Network Operations Lead: Juan Daniel Chappell MD Abs.Imm.Granulocyte 0.04 k/uL Normal 0.00-0.30 [facility] Comment on above: Performed By: #### C MPX, CRP, CDP #### [facility] [place], [place] [id number] Network Operations Lead: Juan Daniel Chappell MD Abs.Neutrophil (Seg) 1.71 k/uL Normal 1.50-8.10 [facility] Comment on above: Performed By: #### C MPX, CRP, CDP #### [address] [address] Network Operations Lead: Juan Daniel Chappell MD Basophils/100 WBC (Bld) 2 % Normal 0-2 [facility] Comment on above: Performed By: #### C MPX, CRP, CDP #### [facility] [employer] [address] [place] [address] 04961 Network Operations Lead: Juan Daniel Chappell MD Eosinophils (Bld) [#/Vol] 0.19 10*3/uL Normal 0.00-0.44 [facility] Comment on above: Performed By: #### C MPX, CRP, CDP #### [address] [address] Network Operations Lead: Juan Daniel Chappell MD Eosinophils/100 WBC (Bld) 5 % High 1-4 [facility] Comment on above: Performed By: #### C MPX, CRP, CDP #### [facility] [employer] [address] [place] [address] 12736 Network Operations Lead: Juan Daniel Chappell MD Erythrocyte distribution width (RBC) [Ratio] 12.3 % Normal 11.8-14.4 [facility] Comment on above: Performed By: #### C MPX, CRP, CDP #### [facility] [employer] [address] [place] [address] 34849 Network Operations Lead: Juan Daniel Chappell MD Hematocrit (Bld) [Volume fraction] 31.4 % Low 40.7-50.3 [facility] Comment on above: Performed By: #### C MPX, CRP, CDP #### [facility] [employer] [address] [place] [address] 19968 Network Operations Lead: Juan Daniel Chappell MD Hemoglobin (Bld) [Mass/Vol] 10.7 g/dL Low 13.0-17.0 [facility] Comment on above: Performed By: #### C MPX, CRP, CDP #### [address] [address] Network Operations Lead: Juan Daniel Chappell MD Immature granulocytes/100 WBC (Bld) 1 % High 0 [facility] Comment on above: Performed By: #### C MPX, CRP, CDP #### [address] [address] Network Operations Lead: Juan Daniel Chappell MD Lymphocytes (Bld) [#/Vol] 1.49 10*3/uL Normal 1.10-3.70 [facility] Comment on above: Performed By: #### C MPX, CRP, CDP #### [address] [address] Network Operations Lead: Juan Daniel Chappell MD Lymphocytes/100 WBC (Bld) 38 % Normal 24-43 [facility] Comment on above: Performed By: #### C MPX, CRP, CDP #### [address] [address] Network Operations Lead: Juan Daniel Chappell MD MCH (RBC) [Entitic mass] 31.6 pg Normal 25.2-33.5 [facility] Comment on above: Performed By: #### C MPX, CRP, CDP #### [address] [address] Network Operations Lead: Juan Daniel Chappell MD MCHC (RBC) [Mass/Vol] 34.1 g/dL Normal 28.4-34.8 [facility] Comment on above: Performed By: #### C MPX, CRP, CDP #### [address] [address] Network Operations Lead: Juan Daniel Chappell MD MCV (RBC) [Entitic vol] 92.6 fL Normal 82.6-102.9 [facility] Comment on above: Performed By: #### C MPX, CRP, CDP #### [address] [address] Network Operations Lead: Juan Daniel Chappell MD Monocytes (Bld) [#/Vol] 0.40 10*3/uL Normal 0.10-1.20 [facility] Comment on above: Performed By: #### C MPX, CRP, CDP #### [address] [address] Network Operations Lead: Juan Daniel Chappell MD Monocytes/100 WBC (Bld) 10 % Normal 3-12 [facility] Comment on above: Performed By: #### C MPX, CRP, CDP #### [address] [address] Network Operations Lead: Juan Daniel Chappell MD Neutrophil (Seg) 44 % Normal 36-65 [facility] Comment on above: Performed By: #### C MPX, CRP, CDP #### [address] [address] Network Operations Lead: Juan Daniel Chappell MD NRBC Automated 0.0 per 100 WBC Normal 0.0 [facility] Comment on above: Performed By: #### C MPX, CRP, CDP #### [address] [address] Network Operations Lead: Juan Daniel Chappell MD Platelet mean volume (Bld) [Entitic vol] 8.3 fL Normal 8.1-13.5 [facility] Comment on above: Performed By: #### C MPX, CRP, CDP #### [address] [address] Network Operations Lead: Juan Daniel Chappell MD Platelets (Bld) [#/Vol] 542 10*3/uL High 138-453 [facility] Comment on above: Performed By: #### C MPX, CRP, CDP #### [facility] [employer] [address] [place] [address] Network Operations Lead: Juan Daniel Chappell MD RBC (Bld) [#/Vol] 3.39 10*6/uL Low 4.21-5.77 [facility] Comment on above: Performed By: #### C MPX, CRP, CDP #### [facility] [employer] [address] [place] [address] 26261 Network Operations Lead: Juan Daniel Chappell MD WBC (Bld) [#/Vol] 3.9 10*3/uL Normal 3.5-11.3 [facility] Comment on above: Performed By: #### C MPX, CRP, CDP #### [facility] [employer] [address] [place] [address] 7[address]51 Network Operations Lead: Juan Daniel Chappell MD Comp Metabolic Pr/rfx MGon 0 2- Albumin [Mass/Vol] 3.0 g/dL Low 3.5-5.2 [facility] Comment on above: Performed By: #### C MPX, CRP, CDP #### [address] [address] Network Operations Lead: Juan Daniel Chappell MD Albumin/Glob Ratio 0.8 Low 1.0-2.5 [facility] Comment on above: Performed By: #### C MPX, CRP, CDP #### [facility] [employer] [address] [place] [address] Network Operations Lead: Juan Daniel Chappell MD Alkaline Phos 107 U/L Normal 40-129 [facility] Comment on above: Performed By: #### C MPX, CRP, CDP #### [facility] [address] [place] [address] Network Operations Lead: Juan Daniel Chappell MD ALT [Catalytic activity/Vol] 10 U/L Normal 10-50 [facility] Comment on above: Performed By: #### C MPX, CRP, CDP #### [facility] [place] [address] Network Operations Lead: Juan Daniel Chappell MD Anion gap [Moles/Vol] 11 mmol/L Normal 9-16 [facility] Comment on above: Performed By: #### C MPX, CRP, CDP #### [facility] [address] [place] [address] Network Operations Lead: Juan Daniel Chappell MD AST [Catalytic activity/Vol] 21 U/L Normal 10-50 [facility] Comment on above: Performed By: #### C MPX, CRP, CDP #### [facility] [address] [place] [address] Network Operations Lead: Juan Daniel Chappell MD Bilirubin [Mass/Vol] 0.2 mg/dL Normal 0.0-1.2 [facility] Comment on above: Performed By: #### C MPX, CRP, CDP #### [facility] [address] [place] [address] Network Operations Lead: Juan Daniel Chappell MD Calcium [Mass/Vol] 9.4 mg/dL Normal 8.6-10.4 [facility] Comment on above: Performed By: #### C MPX, CRP, CDP #### [facility] [address] [place] [address] Network Operations Lead: Juan Daniel Chappell MD Chloride [Moles/Vol] 107 mmol/L Normal 98-107 [facility] Comment on above: Performed By: #### C MPX, CRP, CDP #### [facility] [address] [place] [address] Network Operations Lead: Juan Daniel Chappell MD CO2 [Moles/Vol] 27 mmol/L Normal 20-31 [facility] Comment on above: Performed By: #### C MPX, CRP, CDP #### [facility] [address] [place] [address] Network Operations Lead: Juan Daniel Chappell MD Creatinine [Mass/Vol] 0.5 mg/dL Low 0.7-1.2 [facility] Comment on above: Performed By: #### C MPX, CRP, CDP #### [facility] [address] [place] [address] Network Operations Lead: Juan Daniel Chappell MD GFR/1.73 sq M.predicted among non-blacks MDRD (S/P/Bld) [Vol rate/Area] mL/min/{1.73_m2} Normal >60 [facility] Comment on above: Result Comment: These results are not intended for [...] following therapy that affects renal tubular secretion. Performed By: #### C MPX, CRP, CDP #### [employer] [address] [place] [address] Network Operations Lead: Juan Daniel Chappell MD Glucose [Mass/Vol] 153 mg/dL High 74-99 [facility] Comment on above: Performed By: #### C MPX, CRP, CDP #### [facility] [address] [place] [address] Network Operations Lead: Juan Daniel Chappell MD Potassium [Moles/Vol] 4.1 mmol/L Normal 3.7-5.3 [facility] Comment on above: Performed By: #### C MPX, CRP, CDP #### [facility] [address] [place] [address] Network Operations Lead: Juan Daniel Chappell MD Protein [Mass/Vol] 6.6 g/dL Normal 6.6-8.7 [facility] Comment on above: Performed By: #### C MPX, CRP, CDP #### [employer] [address] [place], [place] [id number] Network Operations Lead: Juan Daniel Chappell MD Sodium [Moles/Vol] 145 mmol/L Normal 136-145 [facility] Comment on above: Performed By: #### C MPX, CRP, CDP #### [facility] [address] [place], [place] [phone] Network Operations Lead: Juan Daniel Chappell MD Urea nitrogen [Mass/Vol] 13 mg/dL Normal 6-20 [facility] Comment on above: Performed By: #### C MPX, CRP, CDP #### [facility] [address], [place] [phone] Network Operations Lead: Juan Daniel Chappell MD Comprehensive Metabolic Pane l w/ Reflex to MGon 08-27-2024 Albumin [Mass/Vol] 3.0 g/dL Low 3.5 - 5.2 g/dL [facility] Albumin/Globulin [Mass ratio] 0.8 {ratio} Low 1.0 - 2.5 [facility] ALP [Catalytic activity/Vol] 107 U/L 40 - 129 U/L [facility] ALT [Catalytic activity/Vol] 10 U/L 10 - 50 U/L [facility] Anion gap [Moles/Vol] 11 mmol/L 9 - 16 mmol/L [facility] AST [Catalytic activity/Vol] 21 U/L 10 - 50 U/L [facility] Bilirubin [Mass/Vol] 0.2 mg/dL 0.0 - 1 .2 mg/dL [facility] Calcium [Mass/Vol] 9.4 mg/dL 8.6 - 10. 4 mg/dL [facility] Chloride [Moles/Vol] 107 mmol/L 98 - 10 7 mmol/L [facility] CO2 [Moles/Vol] 27 mmol/L 20 - 31 mmol/L [facility] Creatinine [Mass/Vol] 0.5 mg/dL Low 0.7 - 1.2 mg/dL [facility] Est, Glom Filt Rate - PINF [facility] Comment on above: These results are not intended for use [...] following therapy that affects renal tubular secretion. Glucose [Mass/Vol] 153 mg/dL High 74 - 99 mg/dL [facility] Potassium [Moles/Vol] 4.1 mmol/L 3.7 - 5.3 mmol/L [facility] Protein [Mass/Vol] 6.6 g/dL 6.6 - 8.7 g/dL [facility] Sodium [Moles/Vol] 145 mmol/L 136 - 145 mmol/L [facility] Urea nitrogen [Mass/Vol] 13 mg/dL 6 - 20 mg/dL [facility] Glucose,Whole Bloodon 2024 Glucose [Mass/Vol] 108 mg/dL Normal 75-110 [facility] Glucose [Mass/Vol] 292 mg/dL High 75-110 [facility] Glucose [Mass/Vol] 148 mg/dL High 75-110 [facility] No Panel Informationon 08-27 Interpretation and review of laboratory results Abnormal [facility] POC Glucose Fingerstickon Glucose [Mass/Vol] 108 mg/dL 75 - 110 mg/dL [facility] Glucose [Mass/Vol] 292 mg/dL High 75 - 110 mg/dL [facility] Interpretation and review of laboratory results Abnormal [facility] Glucose [Mass/Vol] 148 mg/dL High 75 - 110 mg/dL [facility] Interpretation and review of laboratory results Abnormal [facility] CT PELVIS WO CONTRASTon 08-09 CT PELVIS WO CONTRAST EXAMINATION: CT OF THE PELVIS WITHOUT CONTRAST 08/26/2024 9:20 am TECHNIQUE: CT of the pelvis was performed without the administration of intravenous contrast. Multiplanar reformatted images are provided for review. Adjustment of mA and/or kV according to patient size was utilized. Automated exposure control, iterative reconstruction, and/or weight based adjustment of the mA/kV was utilized to reduce the radiation dose to as low as reasonably achievable. COMPARISON: 17 August 2024 HISTORY ORDERING SYSTEM PROVIDED HISTORY: look for progression of the pelvioc collection - pus coming wround the drain whiloe only blood from [place]side - there was an earlier suggestion of larger drain requirement - ty TECHNOLOGIST PROVIDED HISTORY: look for progression of the pelvioc collection - pus coming wround the drain whiloe only blood from [place]side - there was an earlier suggestion of larger drain requirement - ty Reason for Exam: LOOK FOR PROGRESSION OF THE PELVIC COLLECTION FINDINGS: Right pigtail catheter is identified in the right iliacus and iliopsoas muscle. There is persistent thickening in this region but decreased fluid. There is no free air identified. There is slightly increased fluid identified in the posterior pelvis. The bladder, prostate gland and bowel are otherwise unremarkable and unchanged. Mild diffuse subcutaneous edema. Minimal anterior lower abdominal wall subcutaneous gas likely injections sites. 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 Slightly increasing free fluid within the posterior pelvis. Interpreted by: Yash Ochoa MD Signed by: Yash Ochoa MD 08/26/24 Final result Normal [facility] CT Pelvis WO contraston 02- Persistent but decreasing right iliopsoas and iliacus muscle abscess. Slightly increasing free fluid within the posterior pelvis. PN RIS CONSOLIDATED EXAMINATION: CT OF THE PELVIS WITHOUT CONTRAST 08/26/2024 9:20 am TECHNIQUE: CT of the pelvis was performed without the administration of intravenous contrast. Multiplanar reformatted images are provided for review. Adjustment of mA and/or kV according to patient size was utilized. Automated exposure control, iterative reconstruction, and/or weight based adjustment of the mA/kV was utilized to reduce the radiation dose to as low as reasonably achievable. COMPARISON: 17 August 2024 HISTORY ORDERING SYSTEM PROVIDED HISTORY: look for progression of the pelvioc collection - pus coming wround the drain whiloe only blood from [place]side - there was an earlier suggestion of larger drain requirement - ty TECHNOLOGIST PROVIDED HISTORY: look for progression of the pelvioc collection - pus coming wround the drain whiloe only blood from [place]side - there was an earlier suggestion of larger drain requirement - ty Reason for Exam: LOOK FOR PROGRESSION OF THE PELVIC COLLECTION FINDINGS: Right pigtail catheter is identified in the right iliacus and iliopsoas muscle. There is persistent thickening in this region but decreased fluid. There is no free air identified. There is slightly increased fluid identified in the posterior pelvis. The bladder, prostate gland and bowel are otherwise unremarkable and unchanged. Mild diffuse subcutaneous edema. Minimal anterior lower abdominal wall subcutaneous gas likely injections sites. [facility] Yash Ochoa MD - 08/26/2024 EXAMINATION: CT OF THE PELVIS WITHOUT CONTRAST 08/26/2024 9:20 am TECHNIQUE: CT of the pelvis was performed without the administration of intravenous contrast. Multiplanar reformatted images are provided for review. Adjustment of mA and/or kV according to patient size was utilized. Automated exposure control, iterative reconstruction, and/or weight based adjustment of the mA/kV was utilized to reduce the radiation dose to as low as reasonably achievable. COMPARISON: 17 August 2024 HISTORY ORDERING SYSTEM PROVIDED HISTORY: look for progression of the pelvioc collection - pus coming wround the drain whiloe only blood from [place]side - there was an earlier suggestion of larger drain requirement - ty TECHNOLOGIST PROVIDED HISTORY: look for progression of the pelvioc collection - pus coming wround the drain whiloe only blood from [place]side - there was an earlier suggestion of larger drain requirement - ty Reason for Exam: LOOK FOR PROGRESSION OF THE PELVIC COLLECTION FINDINGS: Right pigtail catheter is identified in the right iliacus and iliopsoas muscle. There is persistent thickening in this region but decreased fluid. There is no free air identified. There is slightly increased fluid identified in the posterior pelvis. The bladder, prostate gland and bowel are otherwise unremarkable and unchanged. Mild diffuse subcutaneous edema. Minimal anterior lower abdominal wall subcutaneous gas likely injections sites. 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 Slightly increasing free fluid within the posterior pelvis. [facility] Radiology Study observation (narrative) [facility] CT Pelvis WO contrastOrdered By: Yash Ochoa on 08-26-2024 [facility] Work Phone: Cult, Bloodon 08-26-2024 Cult, Blood Specimen Description .BLOOD Special Requests R ARM 1ML Culture NO GROWTH 5 DAYS Report Status FINAL 08/26/2024 Normal [facility] Comment on above: Performed By: #### B CUL2 ####[facility] [address] [place], [place] [id number] Lab Director: Juan Daniel Chappell MD Cult,Bloodon 08-26-2024 Cult,Blood Specimen Description .BLOOD Special Requests L ARM 1ML Culture NO GROWTH 5 DAYS Report Status FINAL 08/26/2024 Normal [facility] Comment on above: Performed By: #### C RP, SED #### [facility] [address] [place] [address] Network Operations Lead: Juan Daniel Chappell MD Culture, Blood 1on 5 Service comment (Unsp spec) [Interp] L ARM 1ML [employer] Culture, Blood 2on 5 Service comment (Unsp spec) [Interp] R ARM 1ML [facility] Glucose,Whole Bloodon 2024 Glucose [Mass/Vol] 393 mg/dL High 75-110 [facility] Glucose [Mass/Vol] 222 mg/dL High 75-110 [facility] Glucose [Mass/Vol] 306 mg/dL High 75-110 [facility] Glucose [Mass/Vol] 117 mg/dL High 75-110 [facility] Laboratoryon 08-26-2024 Microorganism identified Cx Nom (Unsp spec) NO GROWTH 5 DAYS [facility] No Panel Informationon 08-26 Specimen Description .BLOOD [facility] POC Glucose Fingerstickon Glucose [Mass/Vol] 393 mg/dL High 75 - 110 mg/dL [facility] Interpretation and review of laboratory results Abnormal [facility] Plan [facility] Labs [facility] Glucose [Mass/Vol] 222 mg/dL High 75 - 110 mg/dL [facility] Interpretation and review of laboratory results Abnormal [facility] Plan [facility] Labs [facility] Glucose [Mass/Vol] 306 mg/dL High 75 - 110 mg/dL [facility] Interpretation and review of laboratory results Abnormal [facility] Glucose [Mass/Vol] 117 mg/dL High 75 - 110 mg/dL [facility] Interpretation and review of laboratory results Abnormal [facility] Basic Metabolic Panelon 08-09 Anion gap [Moles/Vol] 10 mmol/L 9 - 16 mmol/L [facility] Calcium [Mass/Vol] 8.9 mg/dL 8.6 - 10. 4 mg/dL [facility] Chloride [Moles/Vol] 100 mmol/L 98 - 10 7 mmol/L [facility] CO2 [Moles/Vol] 29 mmol/L 20 - 31 mmol/L [facility] Creatinine [Mass/Vol] 0.5 mg/dL Low 0.7 - 1.2 mg/dL [facility] Est, Jenni Guillen Rate - PINF [facility] Comment on above: These results are not intended for use [...] following therapy that affects renal tubular secretion. Glucose [Mass/Vol] 336 mg/dL High 74 - 99 mg/dL [facility] Potassium [Moles/Vol] 4.1 mmol/L 3.7 - 5.3 mmol/L [facility] Sodium [Moles/Vol] 139 mmol/L 136 - 145 mmol/L [facility] Urea nitrogen [Mass/Vol] 9 mg/dL 6 - 20 mg/dL [facility] Basic Metabolic Profon 08-25 Anion gap [Moles/Vol] 10 mmol/L Normal 9-16 [facility] Comment on above: Performed By: #### C RP, CDP, BMP ####[facility] [address] [place] [address] [facility] Director: Juan Daniel Chappell MD Calcium [Mass/Vol] 8.9 mg/dL Normal 8.6-10.4 [facility] Comment on above: Performed By: #### C RP, CDP, BMP ####[place] [address] [place], [place] [phone] Director: Juan Daniel Chappell MD Chloride [Moles/Vol] 100 mmol/L Normal 98-107 [facility] Comment on above: Performed By: #### C RP, CDP, BMP ####[facility] [address] [place], [place] [phone] Director: Juan Daniel Chappell MD CO2 [Moles/Vol] 29 mmol/L Normal 20-31 [facility] Comment on above: Performed By: #### C RP, CDP, BMP ####[address] [phone] Director: Juan Daniel Chappell MD Creatinine [Mass/Vol] 0.5 mg/dL Low 0.7-1.2 [facility] Comment on above: Performed By: #### C RP, CDP, BMP ####[address] [address])[phone] Director: Juan Daniel Chappell MD GFR/1.73 sq M.predicted among non-blacks MDRD (S/P/Bld) [Vol rate/Area] mL/min/{1.73_m2} Normal >60 [facility] Comment on above: Result Comment: These results are not intended for [...] following therapy that affects renal tubular secretion. Performed By: #### C RP, CDP, BMP ####[address] [phone] Director: Juan Daniel Chappell MD Glucose [Mass/Vol] 336 mg/dL High 74-99 [facility] Comment on above: Performed By: #### C EUFEMIA CUELLAR, BMP ####[facility] [address] [place] [address] Lab Director: Juan Daniel Chappell MD Potassium [Moles/Vol] 4.1 mmol/L Normal 3.7-5.3 [facility] Comment on above: Performed By: #### C EUFEMIA CUELLAR, BMP ####[facility] [address] [place] [address] Lab Director: Juan Daniel Chappell MD Sodium [Moles/Vol] 139 mmol/L Normal 136-145 [facility] Comment on above: Performed By: #### C EUFEMIA CUELLAR, BMP ####[facility] [address] [place] [address] Lab Director: Juan Daniel Chappell MD Urea nitrogen [Mass/Vol] 9 mg/dL Normal 6-20 [facility] Comment on above: Performed By: #### C EUFEMIA CUELLAR, BMP ####[facility] [address] [place], [place] [address])[phone] Director: Juan Daniel Chappell MD C-Reactive Proteinon 025 CRP High sensitivity method [Mass/Vol] 95.5 mg/L High 0.0 - 5.0 mg/L [facility] CRP [Mass/Vol] 95.5 mg/L High 0.0-5.0 [facility] Comment on above: Performed By: #### C EUFEMIA CUELLAR, BMP ####[facility] [address] [place] [address] Lab Director: Juan Daniel Chappell MD CBC with Auto Differentialon 08-25-2024 Basophils (Bld) [#/Vol] 0.08 10*3/uL [facility] Basophils/100 WBC (Bld) 2 % 0 - 2 % [facility] Eosinophils (Bld) [#/Vol] 0.20 10*3/uL [facility] Eosinophils/100 WBC (Bld) 5 % High 1 - 4 % [facility] Erythrocyte distribution width (RBC) [Ratio] 11.8 % 11.8 - 14.4 % [facility] Hematocrit (Bld) [Volume fraction] 27.9 % Low 40.7 - 50.3 % [facility] Hemoglobin (Bld) [Mass/Vol] 9.3 g/dL Low 13.0 - 17.0 g/dL [facility] Immature granulocytes (Bld) [#/Vol] 0.05 10*3/uL [facility] Immature granulocytes/100 WBC (Bld) 1 % High 0 [facility] Interpretation and review of laboratory results Abnormal [facility] Lymphocytes/100 WBC (Bld) 38 % 24 - 43 % [facility] Lymphocytes/100 WBC (Bld) 1.50 % [facility] MCH (RBC) [Entitic mass] 30.8 pg 25.2 - 33.5 pg [facility] MCHC (RBC) [Mass/Vol] 33.3 g/dL 28.4 - 34.8 g/dL [facility] MCV (RBC) [Entitic vol] 92.4 fL 82.6 - 102.9 fL [facility] Monocytes/100 WBC (Bld) 12 % 3 - 12 % [facility] Monocytes/100 WBC (Bld) 0.49 % [facility] Neutrophils/100 WBC (Bld) 41 % 36 - 65 % [facility] Nucleated RBC/100 WBC (Bld) [Ratio] 0.0 % 0.0 per 100 WBC [facility] Platelet mean volume (Bld) [Entitic vol] 8.7 fL 8.1 - 13.5 fL [facility] Platelets (Bld) [#/Vol] 475 10*3/uL High [facility] RBC (Bld) [#/Vol] 3.02 10*6/uL Low 4.21 - 5.77 m/uL [facility] Segmented neutrophils/100 WBC (Bld) 1.63 % [facility] WBC other (Bld) [#/Vol] 4.0 [facility] CBC with Diffon 08-25-2024 Abs. Basophil 0.08 k/uL Normal 0.00-0.20 [facility] Comment on above: Performed By: #### C RP, CDP, BMP ####[facility] [address] [place], [place] [address])[phone] Director: Juan Daniel Chappell MD Abs.Imm.Granulocyte 0.05 k/uL Normal 0.00-0.30 [facility] Comment on above: Performed By: #### C RP, CDP, BMP ####[facility] [address] [place], [place] [address])[phone] Director: Juan Daniel Chappell MD Abs.Neutrophil (Seg) 1.63 k/uL Normal 1.50-8.10 [facility] Comment on above: Performed By: #### C RP, CDP, BMP ####[facility] [address] [place], [place] [address])[phone] Director: Juan Daniel Chappell MD Basophils/100 WBC (Bld) 2 % Normal 0-2 [facility] Comment on above: Performed By: #### C RP, CDP, BMP ####[facility] [address] [place] [address])[phone] Director: Juan Daniel Chappell MD Eosinophils (Bld) [#/Vol] 0.20 10*3/uL Normal 0.00-0.44 [facility] Comment on above: Performed By: #### C RP, CDP, BMP ####[facility] [address] [place], [place] [address])[phone] Director: Juan Daniel Chappell MD Eosinophils/100 WBC (Bld) 5 % High 1-4 [facility] Comment on above: Performed By: #### C RP, CDP, BMP ####[facility] [address] [place], [place] [address])[phone] Director: Juan Daniel Chappell MD Erythrocyte distribution width (RBC) [Ratio] 11.8 % Normal 11.8-14.4 [facility] Comment on above: Performed By: #### C RP, CDP, BMP ####[facility] [address] [place], [place] [phone] Director: Juan Daniel Chappell MD Hematocrit (Bld) [Volume fraction] 27.9 % Low 40.7-50.3 [facility] Comment on above: Performed By: #### C RP, CDP, BMP ####[facility] [address] [place], [place] [phone] Director: Juan Daniel Chappell MD Hemoglobin (Bld) [Mass/Vol] 9.3 g/dL Low 13.0-17.0 [facility] Comment on above: Performed By: #### C RP, CDP, BMP ####[facility] [address] [place] [address] [phone] Director: Juan Daniel Chappell MD Immature granulocytes/100 WBC (Bld) 1 % High 0 [facility] Comment on above: Performed By: #### C RP, CDP, BMP ####[facility] [address] [place] [address] [phone] Director: Juan Daniel Chappell MD Lymphocytes (Bld) [#/Vol] 1.50 10*3/uL Normal 1.10-3.70 [facility] Comment on above: Performed By: #### C RP, CDP, BMP ####[facility] [address] [place], [place] [phone] Director: Juan Daniel Chappell MD Lymphocytes/100 WBC (Bld) 38 % Normal 24-43 [facility] Comment on above: Performed By: #### C RP, CDP, BMP ####[facility] [address] [place], [place] [phone] Director: Juan Daniel Chappell MD MCH (RBC) [Entitic mass] 30.8 pg Normal 25.2-33.5 [facility] Comment on above: Performed By: #### C RP CDP, BMP ####[facility] [address] [place], [place] [phone] Director: Juan Daniel Chappell MD MCHC (RBC) [Mass/Vol] 33.3 g/dL Normal 28.4-34.8 [facility] Comment on above: Performed By: #### C RP, CDP, BMP ####[facility] [address] [place] [address] [phone] Director: Juan Daniel Chappell MD MCV (RBC) [Entitic vol] 92.4 fL Normal 82.6-102.9 [facility] Comment on above: Performed By: #### C RPEUFEMIA, BMP ####[address] [address])[phone] Director: Juan Daniel Chappell MD Monocytes (Bld) [#/Vol] 0.49 10*3/uL Normal 0.10-1.20 [facility] Comment on above: Performed By: #### C RP, CDP, BMP ####[facility] [address] [place] [address] [phone] Director: Juan Daniel Chappell MD Monocytes/100 WBC (Bld) 12 % Normal 3-12 [facility] Comment on above: Performed By: #### C RP, CDP, BMP ####[facility] [address] [place], [place] [id number])[phone] Director: Juan Daniel Chappell MD Neutrophil (Seg) 41 % Normal 36-65 [facility] Comment on above: Performed By: #### C RP, CDP, BMP ####[facility] [address] [place], [place] [phone] Director: Juan Daniel Chappell MD NRBC Automated 0.0 per 100 WBC Normal 0.0 [facility] Comment on above: Performed By: #### C RPEUFEMIA, BMP ####[facility] [address] [place], [place] [phone] Director: Juan Daniel Chappell MD Platelet mean volume (Bld) [Entitic vol] 8.7 fL Normal 8.1-13.5 [facility] Comment on above: Performed By: #### C RPEUFEMIA, BMP ####[facility] [address] [place] [address] Lab Director: Juan Daniel Chappell MD Platelets (Bld) [#/Vol] 475 10*3/uL High 138-453 [facility] Comment on above: Performed By: #### C EUFEMIA CUELLAR, BMP ####[facility] [address] [place], [place] [phone] Director: Juan Daniel Chappell MD RBC (Bld) [#/Vol] 3.02 10*6/uL Low 4.21-5.77 [facility] Comment on above: Performed By: #### C EUFEMIA CUELLAR, BMP ####[facility] [address] [place], [place] [phone] Director: Juan Daniel Chappell MD WBC (Bld) [#/Vol] 4.0 10*3/uL Normal 3.5-11.3 [facility] Comment on above: Performed By: #### C RPEUFEMIA, BMP ####[facility] [address] [place], [place] [phone] Director: Juan Daniel Chappell MD Glucose,Whole Bloodon 2024 Glucose [Mass/Vol] 199 mg/dL High 75-110 [facility] Glucose [Mass/Vol] 261 mg/dL High 75-110 [facility] Glucose [Mass/Vol] 102 mg/dL Normal 75-110 [facility] Glucose [Mass/Vol] 324 mg/dL High 75-110 [facility] No Panel Informationon 02-17 -2025 Interpretation and review of laboratory results Abnormal [facility] POC Glucose Fingerstickon Glucose [Mass/Vol] 199 mg/dL High 75 - 110 mg/dL [facility] Interpretation and review of laboratory results Abnormal [facility] Glucose [Mass/Vol] 261 mg/dL High 75 - 110 mg/dL [facility] Interpretation and review of laboratory results Abnormal [facility] Glucose [Mass/Vol] 102 mg/dL 75 - 110 mg/dL [facility] Glucose [Mass/Vol] 324 mg/dL High 75 - 110 mg/dL [facility] Interpretation and review of laboratory results Abnormal [facility] Cult,Aerobe/Anaerobeon 08-24 Cult,Aerobe/Anaerobe Specimen Descriptio n .ABSCESS PSOAS Direct Exam FEW NEUTROPHILS FEW GRAM POSITIVE COCCI IN CLUSTERS Culture STAPHYLOCOCCUS AUREUS MODERATE GROWTH This isolate is methicillin susceptible. No anaerobic organisms isolated at 5 days. Report Status FINAL 08/27/2024 SUSCEPTIBILITY Organism SAUR MSSA Method ARTURO Penicillin >=0.5 RESISTANT Clindamycin <=0.25 SUSCEPTIBLE Erythromycin <=0.25 SUSCEPTIBLE Gentamicin <=0.5 SUSCEPTIBLE Gentamicin is used only in combination with other active agents that test susceptible. Levofloxacin 0.25 SUSCEPTIBLE Oxacillin <=0.25 SUSCEPTIBLE Tetracycline <=1 SUSCEPTIBLE Trimethoprim/Sulfa <=10 SUSCEPTIBLE Susceptible [facility] Comment on above: Performed By: #### A ANC ####[address] [place] [address] [facility] Director: Juan Daniel Chappell MD Culture, Anaerobic and Aerob icon 08-24-2024 Interpretation and review of laboratory results Abnormal [facility] Microorganism identified Cx Nom (Unsp spec) STAPHYLOCOCCUS AUREUS MODERATE GROWTH This isolate is methicillin susceptible. Abnormal [facility] Microorganism identified Cx Nom (Unsp spec) No anaerobic organisms isolated at 5 days. [facility] Microorganism or agent identified Nom (Unsp spec) FEW NEUTROPHILS [facility] Microorganism or agent identified Nom (Unsp spec) Positive Abnormal [facility] Specimen Description .ABSCESS PSOAS [facility] Glucose,Whole Bloodon 2024 Glucose [Mass/Vol] 243 mg/dL High 75-110 [facility] Glucose [Mass/Vol] 288 mg/dL High 75-110 [facility] Glucose [Mass/Vol] 177 mg/dL High 75-110 [facility] Glucose [Mass/Vol] 207 mg/dL High 75-110 [facility] POC Glucose Fingerstickon Glucose [Mass/Vol] 243 mg/dL High 75 - 110 mg/dL [facility] Interpretation and review of laboratory results Abnormal [facility] Glucose [Mass/Vol] 288 mg/dL High 75 - 110 mg/dL [facility] Interpretation and review of laboratory results Abnormal [facility] Glucose [Mass/Vol] 177 mg/dL High 75 - 110 mg/dL [facility] Interpretation and review of laboratory results Abnormal [facility] Glucose [Mass/Vol] 207 mg/dL High 75 - 110 mg/dL [facility] Interpretation and review of laboratory results Abnormal [facility] C-Reactive Proteinon 025 CRP High sensitivity method [Mass/Vol] 206.0 mg/L High 0.0 - 5.0 mg/L [facility] Interpretation and review of laboratory results Abnormal [facility] CRP [Mass/Vol] 206.0 mg/L High 0.0-5.0 [facility] Comment on above: Performed By: #### C DP, CRP, SED ####[facility] [address] [place] [address] [facility] Director: Juan Daniel Chappell MD CBC with Auto Differentialon 08-23-2024 Basophils (Bld) [#/Vol] 0.08 10*3/uL [facility] Immature granulocytes (Bld) [#/Vol] 0.05 10*3/uL [facility] Interpretation and review of laboratory results Abnormal [facility] Lymphocytes/100 WBC (Bld) 1.40 % [facility] Monocytes/100 WBC (Bld) 0.94 % [facility] Neutrophils/100 WBC (Bld) 66 % High 36 - 65 % [facility] Nucleated RBC/100 WBC (Bld) [Ratio] 0.0 % 0.0 per 100 WBC [facility] Segmented neutrophils/100 WBC (Bld) 4.99 % [facility] WBC other (Bld) [#/Vol] 7.6 [facility] CBC with Diffon 08-23-2024 Abs. Basophil 0.08 k/uL Normal 0.00-0.20 [facility] Comment on above: Performed By: #### C DP, CRP, SED ####[place], [place] [address])[phone] Director: Juan Daniel Chappell MD Abs.Imm.Granulocyte 0.05 k/uL Normal 0.00-0.30 [facility] Comment on above: Performed By: #### C DP, CRP, SED ####[place], [place] [address])[phone] Director: Juan Daniel Chappell MD Abs.Neutrophil (Seg) 4.99 k/uL Normal 1.50-8.10 [facility] Comment on above: Performed By: #### C DP, CRP, SED ####[facility] [address] [place], [place] [address])[phone] Director: Juan Daniel Chappell MD Basophils/100 WBC (Bld) 1 % Normal 0-2 [facility] Comment on above: Performed By: #### C DP, CRP, SED ####[place], [place] [address])[phone] Director: Juan Daniel Chappell MD Eosinophils (Bld) [#/Vol] 0.17 10*3/uL Normal 0.00-0.44 [facility] Comment on above: Performed By: #### C DP, CRP, SED ####[facility] [address] [place], [place] [address])[phone] Director: Juan Daniel Chappell MD Eosinophils/100 WBC (Bld) 2 % Normal 1-4 [facility] Comment on above: Performed By: #### C DP, CRP, SED ####[facility] [address] [place], [place] [address])[phone] Director: Juan Daniel Chappell MD Erythrocyte distribution width (RBC) [Ratio] 11.6 % Low 11.8-14.4 [facility] Comment on above: Performed By: #### C DP, CRP, SED ####[place], [place] [address])[phone] Director: Juan Daniel Chappell MD Hematocrit (Bld) [Volume fraction] 28.9 % Low 40.7-50.3 [facility] Comment on above: Performed By: #### C DP, CRP, SED ####[facility] [address] [place], [place] [address])[phone] Director: Juan Daniel Chappell MD Hemoglobin (Bld) [Mass/Vol] 9.6 g/dL Low 13.0-17.0 [facility] Comment on above: Performed By: #### C DP, CRP, SED ####[place], [place] [address])[phone] Director: Juan Daniel Chappell MD Immature granulocytes/100 WBC (Bld) 1 % High 0 [facility] Comment on above: Performed By: #### C DP, CRP, SED ####[facility] [address] [place], [place] [address])[phone] Director: Juan Daniel Chappell MD Lymphocytes (Bld) [#/Vol] 1.40 10*3/uL Normal 1.10-3.70 [facility] Comment on above: Performed By: #### C DP, CRP, SED ####[facility] [address] [address])[phone] Director: Juan Daniel Chappell MD Lymphocytes/100 WBC (Bld) 18 % Low 24-43 [facility] Comment on above: Performed By: #### C DP, CRP, SED ####[address] [address])[phone] Director: Juan Daniel Chappell MD MCH (RBC) [Entitic mass] 31.5 pg Normal 25.2-33.5 [facility] Comment on above: Performed By: #### C DP, CRP, SED ####[place], [place] [address])[phone] Director: Juan Daniel Chappell MD MCHC (RBC) [Mass/Vol] 33.2 g/dL Normal 28.4-34.8 [facility] Comment on above: Performed By: #### C DP, CRP, SED ####[place], [place] [address])[phone] Director: Juan Daniel Chappell MD MCV (RBC) [Entitic vol] 94.8 fL Normal 82.6-102.9 [facility] Comment on above: Performed By: #### C DP, CRP, SED ####[place], [place] [address])[phone] Director: Juan Daniel Chappell MD Monocytes (Bld) [#/Vol] 0.94 10*3/uL Normal 0.10-1.20 [facility] Comment on above: Performed By: #### C DP, CRP, SED ####[place], [place] [address])[phone] Director: Juan Daniel Chappell MD Monocytes/100 WBC (Bld) 12 % Normal 3-12 [facility] Comment on above: Performed By: #### C DP, CRP, SED ####[place] [address] Lab Director: Juan Daniel Chappell MD Neutrophil (Seg) 66 % High 36-65 [facility] Comment on above: Performed By: #### C DP, CRP, SED ####[facility] [address] [place] [address] [id number])[phone] Director: Juan Daniel Chappell MD NRBC Automated 0.0 per 100 WBC Normal 0.0 [facility] Comment on above: Performed By: #### C DP, CRP, SED ####[facility] [address] [place] [address] [id number])[phone] Director: Juan Daniel Chappell MD Platelet mean volume (Bld) [Entitic vol] 8.7 fL Normal 8.1-13.5 [facility] Comment on above: Performed By: #### C DP, CRP, SED ####[address] [phone])[phone] Director: Juan Daniel Chappell MD Platelets (Bld) [#/Vol] 435 10*3/uL Normal 138-453 [facility] Comment on above: Performed By: #### C DP, CRP, SED ####[address] [phone])[phone] Director: Juan Daniel Chappell MD RBC (Bld) [#/Vol] 3.05 10*6/uL Low 4.21-5.77 [facility] Comment on above: Performed By: #### C DP, CRP, SED ####[facility] [address] [place] [address] [id number])[phone] Director: Juan Daniel Chappell MD WBC (Bld) [#/Vol] 7.6 10*3/uL Normal 3.5-11.3 [facility] Comment on above: Performed By: #### C DP, CRP, SED ####[facility] [address] [place], [place] [phone] Director: Juan Daniel Chappell MD Glucose,Whole Bloodon 2024 Glucose [Mass/Vol] 339 mg/dL High 75-110 [facility] Glucose [Mass/Vol] 317 mg/dL High 75-110 [facility] Glucose [Mass/Vol] 286 mg/dL High 75-110 [facility] Glucose [Mass/Vol] 305 mg/dL High 75-110 [facility] Lactic Acidon 08-23-2024 Lactic Acid, Whole Blood 1.2 mmol/L 0.7 - 2.1 mmol/L [facility] Lactic Acid,Whole Bl 1.2 mmol/L Normal 0.7-2.1 [facility] Comment on above: Performed By: #### L ACTIC ####[facility] [address] [place] [address] Lab Director: Juan Daniel Chappell MD Lactic Acid, Whole Blood 0.9 mmol/L 0.7 - 2.1 mmol/L [facility] Lactic Acid,Whole Bl 0.9 mmol/L Normal 0.7-2.1 [facility] Comment on above: Performed By: #### L ACTIC #### [facility] [address] [place] [address] Network Operations Lead: Juan Daniel Chappell MD Lactic Acid, Whole Blood 1.0 mmol/L 0.7 - 2.1 mmol/L [facility] Lactic Acid,Whole Bl 1.0 mmol/L Normal 0.7-2.1 [facility] Comment on above: Performed By: #### L ACTIC #### [facility] [address] [place] [address] [employer] Lead: Juan Daniel Chappell MD POC Glucose Fingerstickon Glucose [Mass/Vol] 339 mg/dL High 75 - 110 mg/dL [facility] Interpretation and review of laboratory results Abnormal [facility] Glucose [Mass/Vol] 317 mg/dL High 75 - 110 mg/dL [facility] Interpretation and review of laboratory results Abnormal [facility] Glucose [Mass/Vol] 286 mg/dL High 75 - 110 mg/dL [facility] Interpretation and review of laboratory results Abnormal [facility] Glucose [Mass/Vol] 305 mg/dL High 75 - 110 mg/dL [facility] Interpretation and review of laboratory results Abnormal [facility] Procalcitoninon 08-23-2024 Interpretation and review of laboratory results Abnormal [facility] Procalcitonin [Mass/Vol] 0.12 ng/mL High 0.00 - 0.09 ng/mL [facility] Comment on above: Suspected Sepsis: <0.50 ng/mL Low likelihood of sepsis. 0.50-2.00 ng/mL Increased likelihood of sepsis. Antibiotics encouraged. >2.00 ng/mL High risk of sepsis/shock. Antibiotics strongly encouraged. Suspected Lower Resp Tract Infections: <0.24 ng/mL Low likelihood of bacterial infection. >0.24 ng/mL Increased likelihood of bacterial infection. Antibiotics encouraged. With successful antibiotic therapy, PCT levels should decrease rapidly. (Half-life of 24 to 36 hours.) Procalcitonin values from samples collected within the first 6 hours of systemic infection may still be low. Retesting may be indicated. Values from day 1 and day 4 can be entered into the Change in Procalcitonin Calculator (www.landxb-voz-yawzlwogcv.com) to determine the patient's Mortality Risk Prognosis In healthy neonates, plasma Procalcitonin (PCT) concentrations increase gradually after , reaching peak values at about 24 hours of age then decrease to normal values below 0.5 ng/mL by 48-72 hours of age. [facility] Procalcitonin 0.12 ng/mL High 0.00-0.09 [facility] Comment on above: Result Comment: Suspected Sepsis: <0.50 ng/mL Low likelihood of sepsis. 0.50-2.00 ng/mL Increased likelihood of sepsis. Antibiotics encouraged. >2.00 ng/mL High risk of sepsis/shock. Antibiotics strongly encouraged. Suspected Lower Resp Tract Infections: <0.24 ng/mL Low likelihood of bacterial infection. >0.24 ng/mL Increased likelihood of bacterial infection. Antibiotics encouraged. With successful antibiotic therapy, PCT levels should decrease rapidly. (Half-life of 24 to 36 hours.) Procalcitonin values from samples collected within the first 6 hours of systemic infection may still be low. Retesting may be indicated. Values from day 1 and day 4 can be entered into the Change in Procalcitonin Calculator (www.imueyc-tks-zlwuyklmch.GetTaxi) to determine the patient's Mortality Risk Prognosis In healthy neonates, plasma Procalcitonin (PCT) concentrations increase gradually after , reaching peak values at about 24 hours of age then decrease to normal values below 0.5 ng/mL by 48-72 hours of age. Performed By: #### P RCAL #### [employer] [address] [place] [address] Network Operations Lead: Juan Daniel Chappell MD Sedimentation Rateon 025 ESR Photometric method (Bld) [Velocity] 53 High [facility] Interpretation and review of laboratory results Abnormal [facility] Sedimentation Rate 53 mm/Hr High 0-15 [facility] Comment on above: Performed By: #### C DP, CRP, SED ####[facility] [address] [place] [address] Lab Director: Juan Daniel Chappell MD CBC auto differentialon 08-09 Basophils (Bld) [#/Vol] 0.05 10*3/uL [facility] Basophils/100 WBC (Bld) 1 % 0 - 2 % [facility] Eosinophils (Bld) [#/Vol] 0.14 10*3/uL [facility] Eosinophils/100 WBC (Bld) 2 % 1 - 4 % [facility] Erythrocyte distribution width (RBC) [Ratio] 11.3 % Low 11.8 - 14.4 % [facility] Hematocrit (Bld) [Volume fraction] 28.7 % Low 40.7 - 50.3 % [facility] Hemoglobin (Bld) [Mass/Vol] 9.2 g/dL Low 13.0 - 17.0 g/dL [facility] Immature granulocytes (Bld) [#/Vol] 0.06 10*3/uL [facility] Immature granulocytes/100 WBC (Bld) 1 % High 0 [facility] Interpretation and review of laboratory results Abnormal [facility] Lymphocytes/100 WBC (Bld) 13 % Low 24 - 43 % [facility] Lymphocytes/100 WBC (Bld) 1.09 % Low [facility] MCH (RBC) [Entitic mass] 30.9 pg 25.2 - 33.5 pg [facility] MCHC (RBC) [Mass/Vol] 32.1 g/dL 28.4 - 34.8 g/dL [facility] MCV (RBC) [Entitic vol] 96.3 fL 82.6 - 102.9 fL [facility] Monocytes/100 WBC (Bld) 13 % High 3 - 12 % [facility] Monocytes/100 WBC (Bld) 1.10 % [facility] Neutrophils/100 WBC (Bld) 70 % High 36 - 65 % [facility] Nucleated RBC/100 WBC (Bld) [Ratio] 0.0 % 0.0 per 100 WBC [facility] Platelet mean volume (Bld) [Entitic vol] 8.6 fL 8.1 - 13.5 fL [facility] Platelets (Bld) [#/Vol] 375 10*3/uL [facility] RBC (Bld) [#/Vol] 2.98 10*6/uL Low 4.21 - 5.77 m/uL [facility] Segmented neutrophils/100 WBC (Bld) 6.27 % [facility] WBC other (Bld) [#/Vol] 8.7 [facility] CBC with Diffon 08-22-2024 Abs. Basophil 0.05 k/uL Normal 0.00-0.20 [facility] Comment on above: Performed By: #### C DP, CMPX ####[facility] [address] [place] [address] [facility] Director: Juan Daniel Chappell MD Abs.Imm.Granulocyte 0.06 k/uL Normal 0.00-0.30 [facility] Comment on above: Performed By: #### C DP, CMPX ####[place], [place] [address])[phone] Director: Juan Daniel Chappell MD Abs.Neutrophil (Seg) 6.27 k/uL Normal 1.50-8.10 [facility] Comment on above: Performed By: #### C DP, CMPX ####[place], [place] [address])[phone] Director: Juan Daniel Chappell MD Basophils/100 WBC (Bld) 1 % Normal 0-2 [facility] Comment on above: Performed By: #### C DP, CMPX ####[place], [place] [address])[phone] Director: Juan Daniel Chappell MD Eosinophils (Bld) [#/Vol] 0.14 10*3/uL Normal 0.00-0.44 [facility] Comment on above: Performed By: #### C DP, CMPX ####[place], [place] [address])[phone] Director: Juan Daniel Chappell MD Eosinophils/100 WBC (Bld) 2 % Normal 1-4 [facility] Comment on above: Performed By: #### C DP, CMPX ####[place], [place] [address])[phone] Director: Juan Daniel Chappell MD Erythrocyte distribution width (RBC) [Ratio] 11.3 % Low 11.8-14.4 [facility] Comment on above: Performed By: #### C DP, CMPX ####[place], [place] [address])[phone] Director: Juan Daniel Chappell MD Hematocrit (Bld) [Volume fraction] 28.7 % Low 40.7-50.3 [facility] Comment on above: Performed By: #### C DP, CMPX ####[facility] [address] [place] [address] [phone])[phone] Director: Juan Daniel Chappell MD Hemoglobin (Bld) [Mass/Vol] 9.2 g/dL Low 13.0-17.0 [facility] Comment on above: Performed By: #### C DP, CMPX ####[address] [address])[phone] Director: Juan Daniel Chappell MD Immature granulocytes/100 WBC (Bld) 1 % High 0 [facility] Comment on above: Performed By: #### C DP, CMPX ####[address] [address])[phone] Director: Juan Daniel Chappell MD Lymphocytes (Bld) [#/Vol] 1.09 10*3/uL Low 1.10-3.70 [facility] Comment on above: Performed By: #### C DP, CMPX ####[address] [address])[phone] Director: Juan Daniel Chappell MD Lymphocytes/100 WBC (Bld) 13 % Low 24-43 [facility] Comment on above: Performed By: #### C DP, CMPX ####[place], [place] [address])[phone] Director: Juan Daniel Chappell MD MCH (RBC) [Entitic mass] 30.9 pg Normal 25.2-33.5 [facility] Comment on above: Performed By: #### C DP, CMPX ####[facility] [address] [place] [address])[phone] Director: Juan Daniel Chappell MD MCHC (RBC) [Mass/Vol] 32.1 g/dL Normal 28.4-34.8 [facility] Comment on above: Performed By: #### C DP, CMPX ####[address] [phone] Director: Juan Daniel Chappell MD MCV (RBC) [Entitic vol] 96.3 fL Normal 82.6-102.9 [facility] Comment on above: Performed By: #### C DP, CMPX ####[address] [phone] Director: Juan Daniel Chappell MD Monocytes (Bld) [#/Vol] 1.10 10*3/uL Normal 0.10-1.20 [facility] Comment on above: Performed By: #### C DP, CMPX ####[address] [phone])[phone] Director: Juan Daniel Chappell MD Monocytes/100 WBC (Bld) 13 % High 3-12 [facility] Comment on above: Performed By: #### C DP, CMPX ####[address] [phone])[phone] Director: Juan Daniel Chappell MD Neutrophil (Seg) 70 % High 36-65 [facility] Comment on above: Performed By: #### C DP, CMPX ####[address] [phone])[phone] Director: Juan Daniel Chappell MD NRBC Automated 0.0 per 100 WBC Normal 0.0 [facility] Comment on above: Performed By: #### C DP, CMPX ####[address] [phone] Director: Juan Daniel Chappell MD Platelet mean volume (Bld) [Entitic vol] 8.6 fL Normal 8.1-13.5 [facility] Comment on above: Performed By: #### C DP, CMPX ####[address] [phone] Director: Juan Daniel Chappell MD Platelets (Bld) [#/Vol] 375 10*3/uL Normal 138-453 [facility] Comment on above: Performed By: #### C DP, CMPX ####[facility] [address] [place] [address] Lab Director: Juan Daniel Chappell MD RBC (Bld) [#/Vol] 2.98 10*6/uL Low 4.21-5.77 [facility] Comment on above: Performed By: #### C DP, CMPX ####[facility] [address] [place] [address] Lab Director: Juan Daniel Chappell MD WBC (Bld) [#/Vol] 8.7 10*3/uL Normal 3.5-11.3 [facility] Comment on above: Performed By: #### C DP, CMPX ####[facility] [address] [place] [address] Lab Director: Juan Daniel Chappell MD Cardiac echo study Procedure Ordered By: Geri Preston on 08-22-2024 Ao Root Index 1.38 cm/m2 [employer] Phone: Aortic Root 2.7 cm [employer] Phone: Ascending Aorta 2.9 cm Bon [employer] Phone: Ascending Aorta Index 1.48 cm/m2 [employer] Phone: AV Area by Peak Velocity 2.8 cm2 [employer] Phone: AV Area by VTI 2.5 cm2 [place] [employer] Phone: AV Mean Gradient 4 mmHg Bon Seco urs [employer] Phone: AV Mean Velocity 0.9 m/s Bon Sec[facility] urs [employer] Phone: AV Peak Gradient 7 mmHg Bon Seco urs [employer] Work Phone: AV Peak Velocity 1.3 m/s Bon [employer] Work Phone: AV Velocity Ratio 0.69 Bon [employer] gabrielle [employer] Work Phone: AV VTI 28.2 cm [employer] Phone: ZACH/BSA Peak Velocity 1.4 cm2/m2 [employer] Work Phone: ZACH/BSA VTI 1.3 cm2/m2 [employer] Work Phone: Body surface area Derived from formula 1.95 m2 [employer] Phone: EF 3D 54 % [employer] Work Phone: Est. RA Pressure 3 mmHg Bon [employer] Phone: Fractional Shortening 2D 37 % 28 - 44 % [employer] Work Phone: IVSd 0.8 cm 0.6 - 1.0 cm [employer] Phone: LA Area 2C 15.3 cm2 [employer] Work Phone: LA Area 4C 18.7 cm2 [employer] Phone: LA Diameter 3.8 cm [employer] Phone: LA Major [place] 6.1 cm [employer] Work Phone: LA Minor [place] 4.2 cm [employer] Phone: LA Size Index 1.94 cm/m2 [employer] Work Phone: LA Volume Index MOD A2C 22 ml/m2 16 - 34 ml/m2 [employer] Work Phone: LA Volume Index MOD A4C 23 ml/m2 16 - 34 ml/m2 [employer] Work Phone: LA Volume MOD A2C 44 mL 18 - 58 mL Bon [employer] Work Phone: LA Volume MOD A4C 46 mL 18 - 58 mL Bon Sec gabrielle [employer] Work Phone: LA/AO Root Ratio 1.41 [facility] [employer] Phone: LV EDV 3D 205 mL Bon [employer] Work Phone: LV EDV Index 3D 105 mL/m2 [facility] [employer] [employer] Work Phone: LV ESV 3D 94 mL [employer] Phone: LV ESV Index 3D 48 mL/m2 Bon [facility] [employer] Phone: LV Mass 2D 195.0 g 88 - 224 g [employer] Phone: LV Mass 2D Index 99.5 g/m2 49 - 115 g/m2 [employer] Work Phone: LV Mass 3D 173.0 g [employer] Phone: LV Mass Index 3D 88.3 g/m2 [facility] [employer] Phone: LV RWT Ratio 0.31 [employer] Phone: LVIDd 5.9 cm 4.2 - 5.9 cm [employer] Phone: LVIDd Index 3.01 cm/m2 Bon [employer] Work Phone: LVIDs 3.7 cm [employer] Phone: LVIDs Index 1.89 cm/m2 [employer] Phone: LVOT Area 4.2 cm2 [employer] Phone: LVOT Diameter 2.3 cm [employer] Phone: LVOT Mean Gradient 2 mmHg Bon [employer] Work Phone: LVOT Peak Gradient 3 mmHg Bon Se [employer] Work Phone: LVOT Peak Velocity 0.9 m/s Bon Se [employer] Work Phone: LVOT Stroke Volume Index 36.2 mL/m2 Bon [employer] Work Phone: LVOT SV 71.0 ml Bon [employer] Work Phone: LVOT VTI 17.1 cm Bon [employer] Work Phone: LVOT:AV VTI Index 0.61 Bon [employer] [facility] [employer] Phone: LVPWd 0.9 cm 0.6 - 1.0 cm [employer] Phone: MV A Velocity 0.41 m/s [employer] Phone: MV Area by VTI 2.1 cm2 [place] [employer] Work Phone: MV E Velocity 1.21 m/s [employer] Phone: MV E Wave Deceleration Time 256.0 ms [employer] Phone: MV E/A 2.95 [employer] Phone: MV Max Velocity 1.3 m/s Bon Silvano[employer] Work Phone: MV Mean Gradient 2 mmHg Bon Seco luis alfredo [employer] Work Phone: MV Mean Velocity 0.7 m/s Bon Seco urs [employer] Work Phone: MV Peak Gradient 6 mmHg Bon Seco urs [employer] Work Phone: MV VTI 33.2 cm Bon [employer]n Work Phone: MV:LVOT VTI Index 1.94 Bon [employer] gabrielle [employer] Work Phone: PV Max Velocity 0.8 m/s Bon Sec[facility] rs [facility] Work Phone: PV Peak Gradient 3 mmHg [employer] Phone: RV Free Wall Peak S' 17.1 cm/s [employer] Phone: RVIDd 3.8 cm [employer] Phone: RVSP 22 mmHg [employer] Phone: TAPSE 3.1 cm 1.7 cm [employer] Phone: TR Max Velocity 2.19 m/s [employer] Phone: TR Peak Gradient 19 mmHg [employer] Phone: [employer] Phone: Cardiac echo study Procedure on 08-22-2024 Left Ventricle: Norm al left ventricular systolic function with a visually estimated EF of 55 - 60%. EF 3D is 54%. Left ventricle size is normal. Normal wall thickness. Normal wall motion. Normal diastolic function. Right Ventricle: Normal systolic function. TAPSE is normal. TAPSE is 3.1 cm. RV Peak S' is 17.1 cm/s. TDI systolic excursion is normal. Aortic Valve: Trileaflet valve. No regurgitation. No stenosis. Mitral Valve: Trace regurgitation. Tricuspid Valve: Mild regurgitation. Normal RVSP. The estimated RVSP is 22 mmHg. Pericardium: Trivial pericardial effusion present. Image quality is good. Left Ventricle Normal left ventricular systolic function with a visually estimated EF of 55 - 60%. EF 3D is 54%. Left ventricle size is normal. Normal wall thickness. Normal wall motion. Normal diastolic function. Right Ventricle Right ventricle size is normal. Normal systolic function. TAPSE is normal. TAPSE is 3.1 cm. RV Peak S' is 17.1 cm/s. TDI systolic excursion is normal. Left Atrium Left atrium size is normal. Left atrial volume index is normal (16-34 mL/m2). Right Atrium Right atrium size is normal. IVC/SVC IVC diameter is less than or equal to 21 mm and decreases greater than 50% during inspiration; therefore the estimated right atrial pressure is normal (~3 mmHg). IVC size is normal. Mitral Valve Valve structure is normal. Trace regurgitation. No stenosis noted. Tricuspid Valve Valve structure is normal. Mild regurgitation. No stenosis noted. Normal RVSP. The estimated RVSP is 22 mmHg. Aortic Valve Trileaflet valve. No regurgitation. No stenosis. Pulmonic Valve Valve structure is normal. No regurgitation. No stenosis noted. Ascending Aorta Normal sized aortic root and ascending aorta. Pericardium Trivial pericardial effusion present. Septum No interatrial shunt visualized with color Doppler. Study Details Image quality: good. The view(s) performed were parasternal, apical, subcostal and suprasternal. Color flow Doppler was performed and pulse wave and/or continuous wave Doppler was performed. No contrast was given. Wall Scoring Baseline Score Index: 1.00 The left ventricular wall motion is normal. [facility] CV CPACS Radiology Study observation (narrative) [facility] Metabolic Pr/rfx MGon 0 - Albumin [Mass/Vol] 2.6 g/dL Low 3.5-5.2 [facility] Comment on above: Performed By: #### C DP, CMPX ####[address] [address] Lab Director: Juan Daniel Chappell MD Albumin/Glob Ratio 0.7 Low 1.0-2.5 [facility] Comment on above: Performed By: #### C DP, CMPX ####[facility] [address] [place] [address] Lab Director: Juan aDniel Chappell MD Alkaline Phos 120 U/L Normal 40-129 [facility] Comment on above: Performed By: #### C DP, CMPX ####[address] [id number] Lab Director: Juan Daniel Chappell MD ALT [Catalytic activity/Vol] U/L Low 10-50 [facility] Comment on above: Performed By: #### C DP, CMPX ####[facility] [address] [place] [address] [phone] Director: Juan Daniel Chappell MD Anion gap [Moles/Vol] 11 mmol/L Normal 9-16 [facility] Comment on above: Performed By: #### C DP, CMPX ####[facility] [address] [place], [place] [phone] Director: Juan Daniel Chappell MD AST [Catalytic activity/Vol] 10 U/L Normal 10-50 [facility] Comment on above: Performed By: #### C DP, CMPX ####[facility] [address] [place], [place] [phone] Director: Juan Daniel Chappell MD Bilirubin [Mass/Vol] 0.4 mg/dL Normal 0.0-1.2 [facility] Comment on above: Performed By: #### C DP, CMPX ####[facility] [address] [place], [place] [phone] Director: Juan Daniel Chappell MD Calcium [Mass/Vol] 9.3 mg/dL Normal 8.6-10.4 [facility] Comment on above: Performed By: #### C DP, CMPX ####[facility] [address] [place], [place] [phone] Director: Juan Daniel Chappell MD Chloride [Moles/Vol] 97 mmol/L Low 98-107 [facility] Comment on above: Performed By: #### C DP, CMPX ####[facility] [address] [place], [place] [phone] Director: Juan Daniel Chappell MD CO2 [Moles/Vol] 24 mmol/L Normal 20-31 [facility] Comment on above: Performed By: #### C DP, CMPX ####[facility] [address] [place], [place] [phone] Director: Juan Daniel Chappell MD Creatinine [Mass/Vol] 0.5 mg/dL Low 0.7-1.2 [facility] Comment on above: Performed By: #### C DP, CMPX ####[facility] [address] [place] [phone] Director: Juan Daniel Chappell MD GFR/1.73 sq M.predicted among non-blacks MDRD (S/P/Bld) [Vol rate/Area] mL/min/{1.73_m2} Normal >60 [facility] Comment on above: Result Comment: These results are not intended for [...] following therapy that affects renal tubular secretion. Performed By: #### C DP, CMPX ####[address] [address])[phone] Director: Juan Daniel Chappell MD Glucose [Mass/Vol] 287 mg/dL High 74-99 [facility] Comment on above: Performed By: #### C DP, CMPX ####[facility] [address] [place] [address] [phone] Director: Juan Daniel Chappell MD Potassium [Moles/Vol] 4.4 mmol/L Normal 3.7-5.3 [facility] Comment on above: Performed By: #### C DP, CMPX ####[facility] [address] [place] [address] [phone] Director: Juan Daniel Chappell MD Protein [Mass/Vol] 6.4 g/dL Low 6.6-8.7 [facility] Comment on above: Performed By: #### C DP, CMPX ####[facility] [address] [place], [place] [phone] Director: Juan Daniel Chappell MD Sodium [Moles/Vol] 132 mmol/L Low 136-145 [facility] Comment on above: Performed By: #### C DP, CMPX ####[facility] [address] [place], [place] [phone] lab Director: Juan Daniel Chappell MD Urea nitrogen [Mass/Vol] 9 mg/dL Normal 6-20 [facility] Comment on above: Performed By: #### C DP, CMPX ####[facility] [address] [place], [place] [id number] lab Director: Juan Daniel Chappell MD Comprehensive Metabolic Pane l w/ Reflex to MGon 08-22-2024 Albumin [Mass/Vol] 2.6 g/dL Low 3.5 - 5.2 g/dL [facility] Albumin/Globulin [Mass ratio] 0.7 {ratio} Low 1.0 - 2.5 [facility] ALP [Catalytic activity/Vol] 120 U/L 40 - 129 U/L [facility] ALT [Catalytic activity/Vol] U/L Low 10 - 50 U/L [facility] Anion gap [Moles/Vol] 11 mmol/L 9 - 16 mmol/L [facility] AST [Catalytic activity/Vol] 10 U/L 10 - 50 U/L [facility] Bilirubin [Mass/Vol] 0.4 mg/dL 0.0 - 1 .2 mg/dL [facility] Calcium [Mass/Vol] 9.3 mg/dL 8.6 - 10. 4 mg/dL [facility] Chloride [Moles/Vol] 97 mmol/L Low 98 - 10 7 mmol/L [facility] CO2 [Moles/Vol] 24 mmol/L 20 - 31 mmol/L [facility] Creatinine [Mass/Vol] 0.5 mg/dL Low 0.7 - 1.2 mg/dL [facility] Est, Glom Filt Rate - PINF [facility] Comment on above: These results are not intended for use [...] following therapy that affects renal tubular secretion. Glucose [Mass/Vol] 287 mg/dL High 74 - 99 mg/dL [facility] Interpretation and review of laboratory results Abnormal [facility] Potassium [Moles/Vol] 4.4 mmol/L 3.7 - 5.3 mmol/L [facility] Protein [Mass/Vol] 6.4 g/dL Low 6.6 - 8.7 g/dL [facility] Sodium [Moles/Vol] 132 mmol/L Low 136 - 145 mmol/L [facility] Urea nitrogen [Mass/Vol] 9 mg/dL 6 - 20 mg/dL [facility] Glucose,Whole Bloodon 2024 Glucose [Mass/Vol] 395 mg/dL High 75-110 [facility] Glucose [Mass/Vol] 116 mg/dL High 75-110 [facility] Glucose [Mass/Vol] 160 mg/dL High 75-110 [facility] Glucose [Mass/Vol] 168 mg/dL High 75-110 [facility] Glucose [Mass/Vol] 252 mg/dL High 75-110 [facility] IR ABSCESS DRAINAGE PERCon 0 08-22-2024 Successful placement of a 10 Greek drainage catheter in a suspected right iliacus abscess, as above. Further imaging assessment and possible up sizing may be required. [facility] Juan Downey MD - 08/22/2024 PROCEDURE: IR ABSCESS DRAIN PERC 08/22/2024 HISTORY: ORDERING SYSTEM PROVIDED HISTORY: Right Iliacus abscess TECHNOLOGIST PROVIDED HISTORY: Ilio-psoas abscess CONTRAST: None used SEDATION: Fentanyl 100 mcg IV for discomfort. Medications were provided and recorded by Radiology nurses. FLUOROSCOPY DOSE AND TYPE: Fluoroscopy time-0.3 minutes Radiation Exposure Index: DAP cGy*cm2, 30 DESCRIPTION OF PROCEDURE: Informed consent was obtained after a detailed explanation of the procedure including risks, benefits, and alternatives. [place] protocol was observed. Sterile gowns, masks, hats and gloves utilized for maximal sterile barrier. Ultrasound fluoroscopic images of the right iliac region were obtained; existing catheter was cut, and a 0.035 Bentson guidewire was introduced. A 10 Greek drainage catheter was then inserted. Approximately 75 cc of bloody purulent appearing fluid was aspirated. A sample was provided for further analysis. The tube was sutured to the skin and attached to GEORGES suction bulb. FINDINGS: Ultrasound shows a very complex echogenic an echo poor collection in the region of the right iliacus; existing catheter was mostly dislodged. Wire placement was demonstrated on sonography and fluoroscopy along the anterior aspect of the collection, but within it; final tube position is satisfactory. Patient tolerated procedure well. IMPRESSION: Successful placement of a 10 Greek drainage catheter in a suspected right iliacus abscess, as above. Further imaging assessment and possible up sizing may be required. [facility] Radiology Study observation (narrative) [facility] Lactic Acidon 08-22-2024 Lactic Acid, Whole Blood 1.0 mmol/L 0.7 - 2.1 mmol/L [facility] Lactic Acid,Whole Bl 1.0 mmol/L Normal 0.7-2.1 [facility] Comment on above: Performed By: #### L ACTIC ####[facility] [address] [place] [address] lab Director: Juan Daniel Chappell MD POC Glucose Fingerstickon Glucose [Mass/Vol] 395 mg/dL High 75 - 110 mg/dL [facility] Interpretation and review of laboratory results Abnormal [facility] Glucose [Mass/Vol] 116 mg/dL High 75 - 110 mg/dL [facility] Interpretation and review of laboratory results Abnormal [facility] Glucose [Mass/Vol] 160 mg/dL High 75 - 110 mg/dL [facility] Interpretation and review of laboratory results Abnormal [facility] Glucose [Mass/Vol] 168 mg/dL High 75 - 110 mg/dL [facility] Interpretation and review of laboratory results Abnormal [facility] Glucose [Mass/Vol] 252 mg/dL High 75 - 110 mg/dL [facility] Interpretation and review of laboratory results Abnormal [facility] Basophils Auto (Bld) [#/Vol] Ordered By: Jorge England on 08-21-2024 Basophils (Bld) [#/Vol] Automated basophil count 0.0-0.2 [facility] Basophils/100 WBC Auto (Bld) Ordered By: Jorge England on 08-21-2024 Basophils/100 WBC (Bld) Automated basophil % . [facility] C reactive protein [Mass/vol ume] in Serum or PlasmaOrdered By: Jorge England on 08-21-2024 CRP [Mass/Vol] C reactive protein [Mass/volume] in Serum or Plasma High 0.0-0.5 [facility] C-Reactive Proteinon 025 CRP High sensitivity method [Mass/Vol] 237.0 mg/L High 0.0 - 5.0 mg/L [facility] Interpretation and review of laboratory results Abnormal [facility] CRP [Mass/Vol] 237.0 mg/L High 0.0-5.0 [facility] Comment on above: Performed By: #### C RP, SED #### [facility] [employer] [address] [place] [address] Network Operations Lead: Juan Daniel Chappell MD C-Reactive Protein 24.0 mg/dL High 0.0-0.5 [facility] Comment on above: Result Comment: PERF ORMED BY: [facility] [address] [id number] PATHOLOGIST SAWYER CORK SLABS GREYSON TORRES M.D. Performed By: #### C K, HS TROP, BNP, CBC, BHOB, LACTIC, PTT, CMP, PT #### [facility] [address] [phone] [facility] Comp Metabolic Pr/rfx MGon 0 08-21-2024 Albumin [Mass/Vol] 3.2 g/dL Low 3.5-5.2 [facility] Comment on above: Performed By: #### C RP, SED #### [facility] [address] [place] [phone] Network Operations Lead: Juan Daniel Chappell MD Albumin/Glob Ratio 0.8 Low 1.0-2.5 [facility] Comment on above: Performed By: #### C RP, SED #### [facility] [address] [place] [address] Network Operations Lead: Juan Daniel Chappell MD Alkaline Phos 138 U/L High 40-129 [facility] Comment on above: Performed By: #### C RP, SED #### [facility] [address] [place] [phone] Network Operations Lead: Juan Daniel Chappell MD ALT [Catalytic activity/Vol] 6 U/L Low 10-50 [facility] Comment on above: Performed By: #### C RP, SED #### [facility] [employer] [address] [place] [address] Network Operations Lead: Juan Daniel Chappell MD Anion gap [Moles/Vol] 10 mmol/L Normal 9-16 [facility] Comment on above: Performed By: #### C RP, SED #### [facility] [address] [place] [address] Network Operations Lead: Juan Daniel Chappell MD AST [Catalytic activity/Vol] 15 U/L Normal 10-50 [facility] Comment on above: Performed By: #### C RP, SED #### [facility] [employer] [address] [place] [address] Network Operations Lead: Juan Daniel Chappell MD Bilirubin [Mass/Vol] 0.4 mg/dL Normal 0.0-1.2 [facility] Comment on above: Performed By: #### C RP, SED #### [facility] [employer] [address] [place] [address] Network Operations Lead: Juan Daniel Chappell MD Calcium [Mass/Vol] 9.6 mg/dL Normal 8.6-10.4 [facility] Comment on above: Performed By: #### C RP, SED #### [facility] [address] [place] [address] Network Operations Lead: Juan Daniel Chappell MD Chloride [Moles/Vol] 95 mmol/L Low 98-107 [facility] Comment on above: Performed By: #### C RP, SED #### [facility] [address] [place] [address] Network Operations Lead: Juan Daniel Chappell MD CO2 [Moles/Vol] 29 mmol/L Normal 20-31 [facility] Comment on above: Performed By: #### C RP, SED #### [address] [address] Network Operations Lead: Juan Daniel Chappell MD Creatinine [Mass/Vol] 0.6 mg/dL Low 0.7-1.2 [facility] Comment on above: Performed By: #### C RP, SED #### [address] [address] Network Operations Lead: Juan Daniel Chappell MD GFR/1.73 sq M.predicted among non-blacks MDRD (S/P/Bld) [Vol rate/Area] mL/min/{1.73_m2} Normal >60 [facility] Comment on above: Result Comment: These results are not intended for [...] following therapy that affects renal tubular secretion. Performed By: #### C RP, SED #### [address] [address] Network Operations Lead: Juan Daniel Chappell MD Glucose [Mass/Vol] 166 mg/dL High 74-99 [facility] Comment on above: Performed By: #### C RP, SED #### [address] [address] Network Operations Lead: Juan Daniel Chappell MD Potassium [Moles/Vol] 4.3 mmol/L Normal 3.7-5.3 [facility] Comment on above: Performed By: #### C RP, SED #### [address] [address] Network Operations Lead: Juan Daniel Chappell MD Protein [Mass/Vol] 7.2 g/dL Normal 6.6-8.7 [facility] Comment on above: Performed By: #### C RP, SED #### [address] [address] Network Operations Lead: Juan Daniel Chappell MD Sodium [Moles/Vol] 134 mmol/L Low 136-145 [facility] Comment on above: Performed By: #### C RP, SED #### [address] [address] Network Operations Lead: Juan Daniel Chappell MD Urea nitrogen [Mass/Vol] 11 mg/dL Normal 6-20 [facility] Comment on above: Performed By: #### C RP, SED #### [address] [address] Network Operations Lead: Juan Daniel Chappell MD Complete Blood Count Auto Di ffon 08-21-2024 Basophils (Bld) [#/Vol] 0.1 10*3/uL Normal 0.0-0.2 [facility] Comment on above: Result Comment: PERF ORMED BY: [facility] [address] [place] [address] PATHOLOGIST SAWYER CORK SLABS GREYSON TORRES M.D. Performed By: #### C K, HS TROP, BNP, CBC, BHOB, LACTIC, PTT, CMP, PT #### [address] Basophils/100 WBC (Bld) 0.6 % Normal . [facility] Comment on above: Performed By: #### C K, HS TROP, BNP, CBC, BHOB, LACTIC, PTT, CMP, PT #### [address] Eosinophils (Bld) [#/Vol] 0.1 10*3/uL Normal 0.0-0.45 [facility] Comment on above: Performed By: #### C K, HS TROP, BNP, CBC, BHOB, LACTIC, PTT, CMP, PT #### [address] Eosinophils/100 WBC (Bld) 1.0 % Normal . [facility] Comment on above: Performed By: #### C K, HS TROP, BNP, CBC, BHOB, LACTIC, PTT, CMP, PT #### [address] Erythrocyte distribution width (RBC) [Ratio] 13.0 % Normal 12.0-14.8 [facility] Comment on above: Performed By: #### C K, HS TROP, BNP, CBC, BHOB, LACTIC, PTT, CMP, PT #### [address] Hematocrit (Bld) [Volume fraction] 28.6 % Low 38.8-50.0 [facility] Comment on above: Performed By: #### C K, HS TROP, BNP, CBC, BHOB, LACTIC, PTT, CMP, PT #### [address] Hemoglobin (Bld) [Mass/Vol] 9.8 g/dL Low 13.0-17.0 [facility] Comment on above: Performed By: #### C K, HS TROP, BNP, CBC, BHOB, LACTIC, PTT, CMP, PT #### [address] Lymphocytes (Bld) [#/Vol] 0.9 10*3/uL Low 1.00-4.8 [facility] Comment on above: Performed By: #### C K, HS TROP, BNP, CBC, BHOB, LACTIC, PTT, CMP, PT #### [address] Lymphocytes/100 WBC (Bld) 8.9 % Normal . [facility] Comment on above: Performed By: #### C K, HS TROP, BNP, CBC, BHOB, LACTIC, PTT, CMP, PT #### [address] MCH (RBC) [Entitic mass] 32.2 pg Normal 27.5-35.2 [facility] Comment on above: Performed By: #### C K, HS TROP, BNP, CBC, BHOB, LACTIC, PTT, CMP, PT #### [address] MCV (RBC) [Entitic vol] 93.8 fL Normal 83.5-101 [facility] Comment on above: Performed By: #### C K, HS TROP, BNP, CBC, BHOB, LACTIC, PTT, CMP, PT #### [address] Mean Corpuscular HGB Conc 34.3 g/dL Normal 32.5-35.6 [facility] Comment on above: Performed By: #### C K, HS TROP, BNP, CBC, BHOB, LACTIC, PTT, CMP, PT #### [address] Monocytes (Bld) [#/Vol] 1.0 10*3/uL High 0.0-0.8 [facility] Comment on above: Performed By: #### C K, HS TROP, BNP, CBC, BHOB, LACTIC, PTT, CMP, PT #### [address] Monocytes/100 WBC (Bld) 10.1 % Normal . [facility] Comment on above: Performed By: #### C K, HS TROP, BNP, CBC, BHOB, LACTIC, PTT, CMP, PT #### [facility] [address] Neutrophils (Bld) [#/Vol] 8.2 10*3/uL High 1.8-7.7 [facility] Comment on above: Performed By: #### C K, HS TROP, BNP, CBC, BHOB, LACTIC, PTT, CMP, PT #### [facility] [address] Neutrophils/100 WBC (Bld) 79.4 % Normal . [facility] Comment on above: Performed By: #### C K, HS TROP, BNP, CBC, BHOB, LACTIC, PTT, CMP, PT #### [facility] [address] NRBC% 0.0 /100{WBC} Normal 0-0.5 [facility] Comment on above: Performed By: #### C K, HS TROP, BNP, CBC, BHOB, LACTIC, PTT, CMP, PT #### [address] Platelet mean volume (Bld) [Entitic vol] 6.5 fL Low 6.6-10.1 [facility] Comment on above: Performed By: #### C K, HS TROP, BNP, CBC, BHOB, LACTIC, PTT, CMP, PT #### [place] [address] [place] Platelets (Bld) [#/Vol] 441 10*3/uL Normal 150-450 [facility] Comment on above: Performed By: #### C K, HS TROP, BNP, CBC, BHOB, LACTIC, PTT, CMP, PT #### [facility] [address] [place] [address] [place] RBC (Bld) [#/Vol] 3.05 10*6/uL Low 3.90-5.60 [facility] Comment on above: Performed By: #### C K, HS TROP, BNP, CBC, BHOB, LACTIC, PTT, CMP, PT #### [place] [address] [place] WBC (Bld) [#/Vol] 10.3 10*3/uL Normal 4.1-10.5 [facility] Comment on above: Performed By: #### C K, HS TROP, BNP, CBC, BHOB, LACTIC, PTT, CMP, PT #### [facility] [address] [id number] [facility] Comprehensive Metabolic Pane l w/ Reflex to MGon 08-21-2024 Albumin [Mass/Vol] 3.2 g/dL Low 3.5 - 5.2 g/dL [facility] Albumin/Globulin [Mass ratio] 0.8 {ratio} Low 1.0 - 2.5 [facility] ALP [Catalytic activity/Vol] 138 U/L High 40 - 129 U/L [facility] ALT [Catalytic activity/Vol] 6 U/L Low 10 - 50 U/L [facility] Anion gap [Moles/Vol] 10 mmol/L 9 - 16 mmol/L [facility] AST [Catalytic activity/Vol] 15 U/L 10 - 50 U/L [facility] Bilirubin [Mass/Vol] 0.4 mg/dL 0.0 - 1 .2 mg/dL [facility] Calcium [Mass/Vol] 9.6 mg/dL 8.6 - 10. 4 mg/dL [facility] Chloride [Moles/Vol] 95 mmol/L Low 98 - 10 7 mmol/L [facility] CO2 [Moles/Vol] 29 mmol/L 20 - 31 mmol/L [facility] Creatinine [Mass/Vol] 0.6 mg/dL Low 0.7 - 1.2 mg/dL [facility] Est, Glom Filt Rate - PINF [facility] Comment on above: These results are not intended for use [...] following therapy that affects renal tubular secretion. Glucose [Mass/Vol] 166 mg/dL High 74 - 99 mg/dL [facility] Interpretation and review of laboratory results Abnormal [facility] Potassium [Moles/Vol] 4.3 mmol/L 3.7 - 5.3 mmol/L [facility] Protein [Mass/Vol] 7.2 g/dL 6.6 - 8.7 g/dL [facility] Sodium [Moles/Vol] 134 mmol/L Low 136 - 145 mmol/L [facility] Urea nitrogen [Mass/Vol] 11 mg/dL 6 - 20 mg/dL [facility] Eosinophils Auto (Bld) [#/Vo l]Ordered By: Jorge England on 08-21-2024 Eosinophils (Bld) [#/Vol] Automated eosinophil count 0.0-0.45 [facility] Eosinophils/100 WBC Auto (Bl d)Ordered By: Jorge England on 08-21-2024 Eosinophils/100 WBC (Bld) Automated eosinophil % . [facility] Erythrocyte distribution wid th Auto (RBC) [Ratio]Ordered By: Jorge England on 08-21-2024 Erythrocyte distribution width (RBC) [Ratio] Erythrocyte distribution width [Ratio] by Automated count 12.0-14.8 [facility] Glucose Glucometer (BldC) [M ass/Vol]Ordered By: Kanu Fry on 08-21-2024 Glucose [Mass/Vol] Capillary blood gluc ose measurement by glucometer (mass/volume) [facility] Comment on above: Random Glucose Refer ence Range is dependent on time and content of last meal. Glucose of more than 200 mg/dL in a nonstressed, ambulatory subject supports the diagnosis of Diabetes Mellitus. Glucose Poct Glucometerson 0 08-21-2024 Commemt1 Glu2: Cleaned Meter Normal [facility] Comment on above: Result Comment: PERF ORMED BY: [facility] [address] [place] [address] PATHOLOGIST SAWYER CORK SLABS GREYSON TORRES M.D. Performed By: #### C K, HS TROP, BNP, CBC, BHOB, LACTIC, PTT, CMP, PT #### [facility] [address] Glucose [Mass/Vol] 116 mg/dL Normal [facility] Comment on above: Result Comment: [place] om Glucose Reference Range is dependent on time and content of last meal. Glucose of more than 200 mg/dL in a nonstressed, ambulatory subject supports the diagnosis of Diabetes Mellitus. Performed By: #### C K, HS TROP, BNP, CBC, BHOB, LACTIC, PTT, CMP, PT #### [address] Glucose [Mass/Vol] 174 mg/dL Normal [facility] Comment on above: Result Comment: [place] om Glucose Reference Range is dependent on time and content of last meal. Glucose of more than 200 mg/dL in a nonstressed, ambulatory subject supports the diagnosis of Diabetes Mellitus. PERFORMED BY: [place] [address] PATHOLOGIST SAWYER CORK SLABS GREYSON TORRES M.D. Performed By: #### C K, HS TROP, BNP, CBC, BHOB, LACTIC, PTT, CMP, PT #### [address] Glucose [Mass/Vol] 276 mg/dL Normal [facility] Comment on above: Result Comment: [place] om Glucose Reference Range is dependent on time and content of last meal. Glucose of more than 200 mg/dL in a nonstressed, ambulatory subject supports the diagnosis of Diabetes Mellitus. PERFORMED BY: [place] [address] PATHOLOGIST SAWYER CORK SLABS GREYSON TORRES M.D. Performed By: #### C K, HS TROP, BNP, CBC, BHOB, LACTIC, PTT, CMP, PT #### [place] [id number] [facility] Glucose,Whole Bloodon 2024 Glucose [Mass/Vol] 145 mg/dL High 75-110 [facility] Hematocrit Auto (Bld) [Volum e fraction]Ordered By: Jorge England on 08-21-2024 Hematocrit (Bld) [Volume fraction] Hematocrit [Volume Fraction] of Blood by Automated count Low 38.8-50.0 [facility] Hemoglobin [Mass/volume] in BloodOrdered By: Jorge England on 08-21-2024 Hemoglobin (Bld) [Mass/Vol] Hemoglobin [Mass/volume] in Blood Low 13.0-17.0 [facility] Leukocytes [#/volume] correc shaji for nucleated erythrocytes in Blood by Automated counOrdered By: Jorge England on 08-21-2024 WBC corrected for nucl RBC Auto (Bld) [#/Vol] Leukocytes [#/volume] corrected for nucleated erythrocytes in Blood by Automated coun 4.1-10.5 [facility] Lymphocytes Auto (Bld) [#/Vo l]Ordered By: Jorge England on 08-21-2024 Lymphocytes (Bld) [#/Vol] Lymphocytes [#/volume] in Blood by Automated count Low 1.00-4.8 [facility] Lymphocytes/100 WBC Auto (Bl d)Ordered By: Jorge Egnland on 08-21-2024 Lymphocytes/100 WBC (Bld) Lymphocytes/100 leukocytes in Blood by Automated count . [facility] MCH Auto (RBC) [Entitic mass ]Ordered By: Jorge England on 08-21-2024 MCH (RBC) [Entitic mass] MCH [Entitic mass] by Automated count 27.5-35.2 [facility] MCHC Auto (RBC) [Mass/Vol]Or dered By: Jorge England on 08-21-2024 MCHC (RBC) [Mass/Vol] MCHC [Mass/volume] by Automated count 32.5-35.6 [facility] MCV Auto (RBC) [Entitic vol] Ordered By: Jorge England on 08-21-2024 MCV (RBC) [Entitic vol] MCV [Entitic volume] by Automated count 83.5-101 [facility] Monocytes Auto (Bld) [#/Vol] Ordered By: Jorge England on 08-21-2024 Monocytes (Bld) [#/Vol] Automated blood monocyte count High 0.0-0.8 [facility] Monocytes/100 WBC Auto (Bld) Ordered By: Jorge England on 08-21-2024 Monocytes/100 WBC (Bld) Automated monocyte % . [facility] Neutrophils Auto (Bld) [#/Vo l]Ordered By: Jorge England on 08-21-2024 Neutrophils (Bld) [#/Vol] Neutrophils [#/volume] in Blood by Automated count High 1.8-7.7 [facility] Neutrophils/100 WBC Auto (Bl d)Ordered By: Jorge England on 08-21-2024 Neutrophils/100 WBC (Bld) Automated neutrophil % . [facility] No Panel InformationOrdered By: Kanu Fry on 08-21-2024 Bedside Glucose Comment Glu2: cleaned meter [facility] Nucleated erythrocytes [Pres ence] in Blood by Automated countOrdered By: Jorge England on 08-21-2024 Nucleated RBC Auto Ql (Bld) Nucleated erythrocytes [Presence] in Blood by Automated count 0-0.5 [facility] POC Glucose Fingerstickon Glucose [Mass/Vol] 145 mg/dL High 75 - 110 mg/dL [facility] Interpretation and review of laboratory results Abnormal [facility] PTon 08-21-2024 INR Coag (PPP) [Relative time] 1.2 {INR} Normal [facility] Comment on above: Result Comment: Therapeutic Range: Moderate Anticoagulant Intensity: INR = 2.0-3.0 High Anticoagulant Intensity: INR = 2.5-3.5 Performed By: #### C MPX, CRP, CDP #### [employer] [address] [place] [id number] Network Operations Lead: Juan Daniel Chappell MD PT Coag (PPP) [Time] 14.6 s Normal 11.7-14.9 [facility] Comment on above: Performed By: #### C MPX, CRP, CDP #### [employer] [address] [place], [place] [id number] Network Operations Lead: Juan Daniel Chappell MD Platelet mean volume Auto (B ld) [Entitic vol]Ordered By: Jorge England on 08-21-2024 Platelet mean volume (Bld) [Entitic vol] Platelet mean volume [Entitic volume] in Blood by Automated count Low 6.6-10.1 [facility] Platelets Auto (Bld) [#/Vol] Ordered By: Jorge England on 08-21-2024 Platelets (Bld) [#/Vol] Platelets [#/volume] in Blood by Automated count 150-450 [facility] Procalcitoninon 08-21-2024 Interpretation and review of laboratory results Abnormal [facility] Procalcitonin [Mass/Vol] 0.18 ng/mL High 0.00 - 0.09 ng/mL [facility] Comment on above: Suspected Sepsis: <0.50 ng/mL Low likelihood of sepsis. 0.50-2.00 ng/mL Increased likelihood of sepsis. Antibiotics encouraged. >2.00 ng/mL High risk of sepsis/shock. Antibiotics strongly encouraged. Suspected Lower Resp Tract Infections: <0.24 ng/mL Low likelihood of bacterial infection. >0.24 ng/mL Increased likelihood of bacterial infection. Antibiotics encouraged. With successful antibiotic therapy, PCT levels should decrease rapidly. (Half-life of 24 to 36 hours.) Procalcitonin values from samples collected within the first 6 hours of systemic infection may still be low. Retesting may be indicated. Values from day 1 and day 4 can be entered into the Change in Procalcitonin Calculator (www.ufqmrh-dho-kjvlnvdllu.GetTaxi) to determine the patient's Mortality Risk Prognosis In healthy neonates, plasma Procalcitonin (PCT) concentrations increase gradually after , reaching peak values at about 24 hours of age then decrease to normal values below 0.5 ng/mL by 48-72 hours of age. [facility] Procalcitonin 0.18 ng/mL High 0.00-0.09 [facility] Comment on above: Result Comment: Suspected Sepsis: <0.50 ng/mL Low likelihood of sepsis. 0.50-2.00 ng/mL Increased likelihood of sepsis. Antibiotics encouraged. >2.00 ng/mL High risk of sepsis/shock. Antibiotics strongly encouraged. Suspected Lower Resp Tract Infections: <0.24 ng/mL Low likelihood of bacterial infection. >0.24 ng/mL Increased likelihood of bacterial infection. Antibiotics encouraged. With successful antibiotic therapy, PCT levels should decrease rapidly. (Half-life of 24 to 36 hours.) Procalcitonin values from samples collected within the first 6 hours of systemic infection may still be low. Retesting may be indicated. Values from day 1 and day 4 can be entered into the Change in Procalcitonin Calculator (www.bjeifv-udb-scjgqzyuja.com) to determine the patient's Mortality Risk Prognosis In healthy neonates, plasma Procalcitonin (PCT) concentrations increase gradually after , reaching peak values at about 24 hours of age then decrease to normal values below 0.5 ng/mL by 48-72 hours of age. Performed By: #### C RP, SED #### [employer] [facility] [place], [place] [id number] Network Operations Lead: Juan Daniel Chappell MD Protime-INRon 08-21-2024 INR Coag (PPP) [Relative time] 1.2 {INR} [facility] Comment on above: Therapeutic Range: Moderate Anticoagulant Intensity: INR = 2.0-3.0 High Anticoagulant Intensity: INR = 2.5-3.5 PT Coag (PPP) [Time] 14.6 s [facility] RBC Auto (Bld) [#/Vol]Ordere d By: Jorge England on 08-21-2024 RBC (Bld) [#/Vol] Erythrocytes [#/volu me] in Blood by Automated count Low 3.90-5.60 [facility] Sedimentation Rateon 025 ESR Photometric method (Bld) [Velocity] 65 High [facility] Interpretation and review of laboratory results Abnormal [facility] Sedimentation Rate 65 mm/Hr High 0-15 [facility] Comment on above: Performed By: #### C RP, SED #### [employer] [facility] [place], [place] [phone] Network Operations Lead: Juan Daniel Chappell MD WBC Auto (Bld) [#/Vol]Ordere d By: Jorge England on 08-21-2024 WBC (Bld) [#/Vol] Leukocytes [#/volume ] in Blood by Automated count 4.1-10.5 [facility] Basic Metabolic Panelon 08-09 Anion gap [Moles/Vol] 9.1 mmol/L Normal 6.0-15.0 [facility] Comment on above: Performed By: #### C K, HS TROP, BNP, CBC, BHOB, LACTIC, PTT, CMP, PT #### [address] Calcium [Mass/Vol] 9.4 mg/dL Normal 8.6-10.3 [facility] Comment on above: Performed By: #### C K, HS TROP, BNP, CBC, BHOB, LACTIC, PTT, CMP, PT #### [address] Chloride [Moles/Vol] 101 mmol/L Normal 98-107 [facility] Comment on above: Performed By: #### C K, HS TROP, BNP, CBC, BHOB, LACTIC, PTT, CMP, PT #### [address] CO2 [Moles/Vol] 32.6 mmol/L High 21.0-31.0 [facility] Comment on above: Performed By: #### C K, HS TROP, BNP, CBC, BHOB, LACTIC, PTT, CMP, PT #### [address] Creatinine [Mass/Vol] 0.67 mg/dL Low 0.70-1.30 [facility] Comment on above: Performed By: #### C K, HS TROP, BNP, CBC, BHOB, LACTIC, PTT, CMP, PT #### [address] Creatinine Clr Calc Pharmacy 183.32 Normal [facility] Comment on above: Performed By: #### C K, HS TROP, BNP, CBC, BHOB, LACTIC, PTT, CMP, PT #### [address] GFR/1.73 sq M.predicted MDRD (S/P/Bld) [Vol rate/Area] mL/min/{1.73_m2} Normal [facility] Comment on above: Performed By: #### C K, HS TROP, BNP, CBC, BHOB, LACTIC, PTT, CMP, PT #### [address] Glucose [Mass/Vol] 232 mg/dL High 70-100 [facility] Comment on above: Result Comment: [place] Glucose Reference Range is dependent on time and content of last meal. Glucose of more than 200 mg/dL in a nonstressed, ambulatory subject supports the diagnosis of Diabetes Mellitus. ADA recommended reference range Performed By: #### C K, HS TROP, BNP, CBC, BHOB, LACTIC, PTT, CMP, PT #### [facility] [address] Potassium [Moles/Vol] 4.7 mmol/L Normal 3.5-5.1 [facility] Comment on above: Performed By: #### C K, HS TROP, BNP, CBC, BHOB, LACTIC, PTT, CMP, PT #### [facility] [address] Sodium [Moles/Vol] 138 mmol/L Normal 136-145 [facility] Comment on above: Performed By: #### C K, HS TROP, BNP, CBC, BHOB, LACTIC, PTT, CMP, PT #### [facility] [address] Urea nitrogen [Mass/Vol] 15 mg/dL Normal 7-25 [facility] Comment on above: Performed By: #### C K, HS TROP, BNP, CBC, BHOB, LACTIC, PTT, CMP, PT #### [address] abdomen pelvis w [place]issa CT abdomen pelvis w [facility] [place] [address] CT Scan Report Signed Patient: Isaias Estrella MR#: [id number] : 2000 Acct:[id number] Age/Sex: 24 / M ADM Date: 08/14/24 Loc: Room: [address] [place] [address] Type: ADM IN Attending Dr: Kanu Fry MD Copies to: MD Sixto Mckay DO Ordering Provider: Sixto Pak DO Date of Service: 02/12/25 CT/CT abdomen pelvis w con: abd pain CT ABDOMEN AND PELVIS WITH INTRAVENOUS CONTRAST: CLINICAL HISTORY: Abdominal pain/right lower quadrant upper right groin. Recent abscess drain. COMPARISON: CT pelvis 08/17/2024. TECHNIQUE: Spiral images were obtained through the abdomen and pelvis following the administration of intravenous contrast. This CT exam was performed using one or more following dose reduction techniques: Automated exposure control, adjustment of the mA and/or kV according to patient size, or use of iterative reconstruction technique. FINDINGS: Lung Bases: [Trace bilateral pleural effusions with bibasilar atelectasis. Bilateral lower lobe pulmonary nodules largest measuring 6 mm left lower lobe series 3 image 6.] Organs:Liver gallbladder portal vein spleen pancreas adrenal glands kidneys and aorta all appear unremarkable.[ GI: Stomach is grossly unremarkable. Small bowel appears nondilated. No acute colonic abnormality is seen.[ Pelvis:[A pigtail catheter is seen situated within the patient's known loculated right iliac muscle abscess. The abscess size is grossly unchanged from the prior CT pelvis study measuring 7.1 x 6.8 cm in greatest axial dimension given differences in measuring technique]. Urinary bladder and prostate gland appear unremarkable. Peritoneum/Retroperitone um:Small amount of free fluid seen within the pelvis. No free air. No lymphadenopathy.[ Abd wall/Bones:Body wall anasarca. Osseous structures demonstrate no acute findings.[ CT/CT abdomen pelvis w con IMPRESSION: 1. Evidence of fluid overload with trace bilateral pleural effusions, small amount of free fluid seen within the pelvis as well as body wall anasarca. 2. A pigtail catheter is once again demonstrated in the patient's known loculated right iliac muscle abscess. The abscess is grossly unchanged in size when compared to the prior CT pelvis study. 3. Bilateral lower lobe pulmonary nodules largest measuring 6 mm left lower lobe. Complete evaluation with CT chest is suggested. Impression dictated by: Jhon Bhardwaj Jr., D.O.08/20/2024 9:30 AM Dictation Location: [place] [address] Transcribed By: [facility] 08/20/24929 Dictated By: Jhon Bhardwaj Jr, DO 08/20/24905 Signed By: 08/20/24929 Normal [facility] Calcium [Mass/volume] in Ser um or PlasmaOrdered By: Sixto Pak on 08-20-2024 Calcium [Mass/Vol] Calcium [Mass/volume ] in Serum or Plasma 8.6-10.3 [facility] Carbon dioxide, total [Moles /volume] in Serum or PlasmaOrdered By: Sixto Pak on 08-20-2024 CO2 [Moles/Vol] Carbon dioxide, tota l [Moles/volume] in Serum or Plasma High 21.0-31.0 [facility] Chloride [Moles/volume] in S maryam or PlasmaOrdered By: Sixto Pak on 08-20-2024 Chloride [Moles/Vol] Chloride [Moles/vol ume] in Serum or Plasma 98-107 [facility] Complete Blood Count Auto Di ffon 08-20-2024 Basophils (Bld) [#/Vol] 0.0 10*3/uL Normal 0.0-0.2 [facility] Comment on above: Result Comment: PERF ORMED BY: [place] [address] PATHOLOGIST SAWYER CORK SLABS GREYSON TORRES M.D. Performed By: #### C K, HS TROP, BNP, CBC, BHOB, LACTIC, PTT, CMP, PT #### [address] Basophils/100 WBC (Bld) 0.4 % Normal . [facility] Comment on above: Performed By: #### C K, HS TROP, BNP, CBC, BHOB, LACTIC, PTT, CMP, PT #### [address] Eosinophils (Bld) [#/Vol] 0.1 10*3/uL Normal 0.0-0.45 [facility] Comment on above: Performed By: #### C K, HS TROP, BNP, CBC, BHOB, LACTIC, PTT, CMP, PT #### [address] Eosinophils/100 WBC (Bld) 1.0 % Normal . [facility] Comment on above: Performed By: #### C K, HS TROP, BNP, CBC, BHOB, LACTIC, PTT, CMP, PT #### [address] Erythrocyte distribution width (RBC) [Ratio] 13.0 % Normal 12.0-14.8 [facility] Comment on above: Performed By: #### C K, HS TROP, BNP, CBC, BHOB, LACTIC, PTT, CMP, PT #### [address] Hematocrit (Bld) [Volume fraction] 30.4 % Low 38.8-50.0 [facility] Comment on above: Performed By: #### C K, HS TROP, BNP, CBC, BHOB, LACTIC, PTT, CMP, PT #### [address] Hemoglobin (Bld) [Mass/Vol] 10.7 g/dL Low 13.0-17.0 [facility] Comment on above: Performed By: #### C K, HS TROP, BNP, CBC, BHOB, LACTIC, PTT, CMP, PT #### [address] Lymphocytes (Bld) [#/Vol] 1.2 10*3/uL Normal 1.00-4.8 [facility] Comment on above: Performed By: #### C K, HS TROP, BNP, CBC, BHOB, LACTIC, PTT, CMP, PT #### [address] Lymphocytes/100 WBC (Bld) 11.5 % Normal . [facility] Comment on above: Performed By: #### C K, HS TROP, BNP, CBC, BHOB, LACTIC, PTT, CMP, PT #### [address] MCH (RBC) [Entitic mass] 33.4 pg Normal 27.5-35.2 [facility] Comment on above: Performed By: #### C K, HS TROP, BNP, CBC, BHOB, LACTIC, PTT, CMP, PT #### [address] MCV (RBC) [Entitic vol] 94.6 fL Normal 83.5-101 [facility] Comment on above: Performed By: #### C K, HS TROP, BNP, CBC, BHOB, LACTIC, PTT, CMP, PT #### [address] Mean Corpuscular HGB Conc 35.3 g/dL Normal 32.5-35.6 [facility] Comment on above: Performed By: #### C K, HS TROP, BNP, CBC, BHOB, LACTIC, PTT, CMP, PT #### [address] Monocytes (Bld) [#/Vol] 1.2 10*3/uL High 0.0-0.8 [facility] Comment on above: Performed By: #### C K, HS TROP, BNP, CBC, BHOB, LACTIC, PTT, CMP, PT #### [address] Monocytes/100 WBC (Bld) 11.5 % Normal . [facility] Comment on above: Performed By: #### C K, HS TROP, BNP, CBC, BHOB, LACTIC, PTT, CMP, PT #### [address] Neutrophils (Bld) [#/Vol] 7.9 10*3/uL High 1.8-7.7 [facility] Comment on above: Performed By: #### C K, HS TROP, BNP, CBC, BHOB, LACTIC, PTT, CMP, PT #### [address] Neutrophils/100 WBC (Bld) 75.6 % Normal . [facility] Comment on above: Performed By: #### C K, HS TROP, BNP, CBC, BHOB, LACTIC, PTT, CMP, PT #### [address] NRBC% 0.0 /100{WBC} Normal 0-0.5 [facility] Comment on above: Performed By: #### C K, HS TROP, BNP, CBC, BHOB, LACTIC, PTT, CMP, PT #### [facility] [address] Platelet mean volume (Bld) [Entitic vol] 6.3 fL Low 6.6-10.1 [facility] Comment on above: Performed By: #### C K, HS TROP, BNP, CBC, BHOB, LACTIC, PTT, CMP, PT #### [facility] [address] Platelets (Bld) [#/Vol] 449 10*3/uL Normal 150-450 [facility] Comment on above: Performed By: #### C K, HS TROP, BNP, CBC, BHOB, LACTIC, PTT, CMP, PT #### [facility] [address] RBC (Bld) [#/Vol] 3.22 10*6/uL Low 3.90-5.60 [facility] Comment on above: Performed By: #### C K, HS TROP, BNP, CBC, BHOB, LACTIC, PTT, CMP, PT #### [facility] [address] WBC (Bld) [#/Vol] 10.4 10*3/uL Normal 4.1-10.5 [facility] Comment on above: Performed By: #### C K, HS TROP, BNP, CBC, BHOB, LACTIC, PTT, CMP, PT #### [facility] [address] Creatinine [Mass/volume] in Serum or PlasmaOrdered By: Sixto Pak on 08-20-2024 Creatinine [Mass/Vol] Creatinine [Mass/v olume] in Serum or Plasma Low 0.70-1.30 [facility] Glucose Poct Glucometerson 0 08-20-2024 Glucose [Mass/Vol] 294 mg/dL Normal [facility] Comment on above: Result Comment: [place] Glucose Reference Range is dependent on time and content of last meal. Glucose of more than 200 mg/dL in a nonstressed, ambulatory subject supports the diagnosis of Diabetes Mellitus. PERFORMED BY: [place] [address] PATHOLOGIST SAWYER CORK SLABS GREYSON TORRES M.D. Performed By: #### C K, HS TROP, BNP, CBC, BHOB, LACTIC, PTT, CMP, PT #### [address] Commemt1 Normal [facility] Comment on above: Result Comment: Glu2 : Result Not Confirmed PERFORMED BY: [place] [address] PATHOLOGIST SAWYER CORK SLABS GREYSON TORRES M.D. Performed By: #### C K, HS TROP, BNP, CBC, BHOB, LACTIC, PTT, CMP, PT #### [address] Glucose [Mass/Vol] 461 mg/dL Off scale high Th e [facility] Comment on above: Result Comment: [place] om Glucose Reference Range is dependent on time and content of last meal. Glucose of more than 200 mg/dL in a nonstressed, ambulatory subject supports the diagnosis of Diabetes Mellitus. Performed By: #### C K, HS TROP, BNP, CBC, BHOB, LACTIC, PTT, CMP, PT #### [address] Commemt1 Normal [facility] Comment on above: Result Comment: Glu2 : Will Repeat Test PERFORMED BY: [place] [address] PATHOLOGIST SAWYER CORK SLABS GREYSON TORRES M.D. Performed By: #### G LULS #### Point of Care testing , Glucose [Mass/Vol] 483 mg/dL Off scale high Th e [facility] Comment on above: Result Comment: [place] om Glucose Reference Range is dependent on time and content of last meal. Glucose of more than 200 mg/dL in a nonstressed, ambulatory subject supports the diagnosis of Diabetes Mellitus. Performed By: #### G LULS #### Point of Care testing , Glucose [Mass/Vol] 170 mg/dL Normal [facility] Comment on above: Result Comment: [place] om Glucose Reference Range is dependent on time and content of last meal. Glucose of more than 200 mg/dL in a nonstressed, ambulatory subject supports the diagnosis of Diabetes Mellitus. PERFORMED BY: [place] [address] PATHOLOGIST SAWYER CORK SLABS GREYSON TORRES M.D. Performed By: #### C K, HS TROP, BNP, CBC, BHOB, LACTIC, PTT, CMP, PT #### [address] Glucose [Mass/Vol] 237 mg/dL Normal [facility] Comment on above: Result Comment: [place] om Glucose Reference Range is dependent on time and content of last meal. Glucose of more than 200 mg/dL in a nonstressed, ambulatory subject supports the diagnosis of Diabetes Mellitus. PERFORMED BY: [place] [address] PATHOLOGIST SAWYER CORK SLABS GREYSON TORRES M.D. Performed By: #### C K, HS TROP, BNP, CBC, BHOB, LACTIC, PTT, CMP, PT #### [facility] [address] [place] [address] [place] Glucose [Mass/Vol] 249 mg/dL Normal [facility] Comment on above: Result Comment: [place] om Glucose Reference Range is dependent on time and content of last meal. Glucose of more than 200 mg/dL in a nonstressed, ambulatory subject supports the diagnosis of Diabetes Mellitus. PERFORMED BY: [place] [address] PATHOLOGIST SAWYER CORK SLABS GREYSON TORRES M.D. Performed By: #### C K, HS TROP, BNP, CBC, BHOB, LACTIC, PTT, CMP, PT #### [place] [address] [place] Glucose [Mass/volume] in Ser um or PlasmaOrdered By: Sixto Pak on 08-20-2024 Glucose [Mass/Vol] Glucose [Mass/volume ] in Serum or Plasma High 70-100 [facility] Comment on above: ADA recommended refe rence rangeRandom Glucose Reference Range is dependent on time and content of last meal. Glucose of more than 200 mg/dL in a nonstressed, ambulatory subject supports the diagnosis of Diabetes Mellitus. Magnesiumon 08-20-2024 Magnesium [Mass/Vol] 1.8 mg/dL Low 1.9-2.7 [facility] Comment on above: Result Comment: PERF ORMED BY: [facility] [address] [place] [address] PATHOLOGIST SAWYER CORK SLABS GREYSON TORRES M.D. Performed By: #### C K, HS TROP, BNP, CBC, BHOB, LACTIC, PTT, CMP, PT #### [facility] [address] Magnesium [Mass/volume] in S maryam or PlasmaOrdered By: Sixto Pak on 08-20-2024 Magnesium [Mass/Vol] Magnesium [Mass/vol ume] in Serum or Plasma Low 1.9-2.7 [facility] No Panel InformationOrdered By: Sixto Pak on 08-20-2024 Estimated GFR (CKD-EPI) > 60.0 mL/Min [facility] Creatinine Clearance (Chem 183.32 [facility] Potassium [Moles/volume] in Serum or PlasmaOrdered By: Sixto Pak on 08-20-2024 Potassium [Moles/Vol] Potassium [Moles/v olume] in Serum or Plasma 3.5-5.1 [facility] Serum or plasma anion gap de terminationOrdered By: Sixto Pak on 08-20-2024 Anion gap [Moles/Vol] Serum or plasma an ion gap determination 6.0-15.0 [facility] Sodium [Moles/volume] in Ser um or PlasmaOrdered By: Sixto Pak on 08-20-2024 Sodium [Moles/Vol] Sodium [Moles/volume ] in Serum or Plasma 136-145 [facility] Urea nitrogen [Mass/volume] in Serum or PlasmaOrdered By: Sixto Pak on 08-20-2024 Urea nitrogen [Mass/Vol] Urea nitrogen [Mass/volume] in Serum or Plasma 7-25 [facility] C-Reactive Proteinon 08-19-2 025 C-Reactive Protein 24.3 mg/dL High 0.0-0.5 [facility] Comment on above: Result Comment: PERF ORMED BY: [place] [address] PATHOLOGIST SAWYER CORK SLABS GREYSON TORRES M.D. Performed By: #### C K, HS TROP, BNP, CBC, BHOB, LACTIC, PTT, CMP, PT #### [address] Glucose Poct Glucometerson 0 08-19-2024 Glucose [Mass/Vol] 199 mg/dL Normal [facility] Comment on above: Result Comment: [place] Glucose Reference Range is dependent on time and content of last meal. Glucose of more than 200 mg/dL in a nonstressed, ambulatory subject supports the diagnosis of Diabetes Mellitus. PERFORMED BY: [place] [address] PATHOLOGIST SAWYER CORK SLABS GREYSON TORRES M.D. Performed By: #### C K, HS TROP, BNP, CBC, BHOB, LACTIC, PTT, CMP, PT #### [address] Glucose [Mass/Vol] 208 mg/dL Normal [facility] Comment on above: Result Comment: [place] om Glucose Reference Range is dependent on time and content of last meal. Glucose of more than 200 mg/dL in a nonstressed, ambulatory subject supports the diagnosis of Diabetes Mellitus. PERFORMED BY: [place] [address] PATHOLOGIST SAWYER CORK SLABS GREYSON TORRES M.D. Performed By: #### C K, HS TROP, BNP, CBC, BHOB, LACTIC, PTT, CMP, PT #### [address] Commemt1 Glu2: Cleaned Meter Normal [facility] Comment on above: Result Comment: PERF ORMED BY: [place] [id number] PATHOLOGIST SAWYER CORK SLABS GREYSON TORRES M.D. Performed By: #### C K, HS TROP, BNP, CBC, BHOB, LACTIC, PTT, CMP, PT #### [facility] [address] Glucose [Mass/Vol] 310 mg/dL Normal [facility] Comment on above: Result Comment: [place] om Glucose Reference Range is dependent on time and content of last meal. Glucose of more than 200 mg/dL in a nonstressed, ambulatory subject supports the diagnosis of Diabetes Mellitus. Performed By: #### C K, HS TROP, BNP, CBC, BHOB, LACTIC, PTT, CMP, PT #### [address] Glucose [Mass/Vol] 309 mg/dL Normal [facility] Comment on above: Result Comment: [place] om Glucose Reference Range is dependent on time and content of last meal. Glucose of more than 200 mg/dL in a nonstressed, ambulatory subject supports the diagnosis of Diabetes Mellitus. PERFORMED BY: [place] [address] PATHOLOGIST SAWYER CORK SLABS GREYSON TORRES M.D. Performed By: #### C K, HS TROP, BNP, CBC, BHOB, LACTIC, PTT, CMP, PT #### [address] C-Reactive Proteinon 08-18-2 025 C-Reactive Protein 25.4 mg/dL High 0.0-0.5 [facility] Comment on above: Result Comment: PERF ORMED BY: [place] [address] PATHOLOGIST SAWYER CORK SLABS GREYSON TORRES M.D. Performed By: #### C K, HS TROP, BNP, CBC, BHOB, LACTIC, PTT, CMP, PT #### [address] Glucose Poct Glucometerson 0 08-18-2024 Glucose [Mass/Vol] 259 mg/dL Normal [facility] Comment on above: Result Comment: [place] om Glucose Reference Range is dependent on time and content of last meal. Glucose of more than 200 mg/dL in a nonstressed, ambulatory subject supports the diagnosis of Diabetes Mellitus. PERFORMED BY: [place] [address] PATHOLOGIST SAWYER CORK SLABS GREYSON TORRES M.D. Performed By: #### C K, HS TROP, BNP, CBC, BHOB, LACTIC, PTT, CMP, PT #### [address] Commemt1 Glu2: Cleaned Meter Normal [facility] Comment on above: Result Comment: PERF ORMED BY: [place] [address] PATHOLOGIST SAWYER CORK SLABS GREYSON TORRES M.D. Performed By: #### C K, HS TROP, BNP, CBC, BHOB, LACTIC, PTT, CMP, PT #### [address] Glucose [Mass/Vol] 260 mg/dL Normal [facility] Comment on above: Result Comment: [place] om Glucose Reference Range is dependent on time and content of last meal. Glucose of more than 200 mg/dL in a nonstressed, ambulatory subject supports the diagnosis of Diabetes Mellitus. Performed By: #### C K, HS TROP, BNP, CBC, BHOB, LACTIC, PTT, CMP, PT #### [place] [id number] [facility] Commemt1 Glu2: Cleaned Meter Normal [facility] Comment on above: Result Comment: PERF ORMED BY: [place] [address] PATHOLOGIST SAWYER CORK SLABS GREYSON TORRES M.D. Performed By: #### C K, HS TROP, BNP, CBC, BHOB, LACTIC, PTT, CMP, PT #### [address] Glucose [Mass/Vol] 330 mg/dL Normal [facility] Comment on above: Result Comment: [place] om Glucose Reference Range is dependent on time and content of last meal. Glucose of more than 200 mg/dL in a nonstressed, ambulatory subject supports the diagnosis of Diabetes Mellitus. Performed By: #### C K, HS TROP, BNP, CBC, BHOB, LACTIC, PTT, CMP, PT #### [address] Glucose [Mass/Vol] 334 mg/dL Normal [facility] Comment on above: Result Comment: [place] Glucose Reference Range is dependent on time and content of last meal. Glucose of more than 200 mg/dL in a nonstressed, ambulatory subject supports the diagnosis of Diabetes Mellitus. PERFORMED BY: [place] [address] PATHOLOGIST SAWYER CORK SLABS GREYSON TORRES M.D. Performed By: #### C K, HS TROP, BNP, CBC, BHOB, LACTIC, PTT, CMP, PT #### [address] Hemogram CBC Without Diffon 08-18-2024 Erythrocyte distribution width (RBC) [Ratio] 12.9 % Normal 12.0-14.8 [facility] Comment on above: Performed By: #### C K, HS TROP, BNP, CBC, BHOB, LACTIC, PTT, CMP, PT #### [address] Hematocrit (Bld) [Volume fraction] 30.3 % Low 38.8-50.0 [facility] Comment on above: Performed By: #### C K, HS TROP, BNP, CBC, BHOB, LACTIC, PTT, CMP, PT #### [address] Hemoglobin (Bld) [Mass/Vol] 10.6 g/dL Low 13.0-17.0 [facility] Comment on above: Performed By: #### C K, HS TROP, BNP, CBC, BHOB, LACTIC, PTT, CMP, PT #### [address] MCH (RBC) [Entitic mass] 33.0 pg Normal 27.5-35.2 [facility] Comment on above: Performed By: #### C K, HS TROP, BNP, CBC, BHOB, LACTIC, PTT, CMP, PT #### [address] MCV (RBC) [Entitic vol] 94.4 fL Normal 83.5-101 [facility] Comment on above: Performed By: #### C K, HS TROP, BNP, CBC, BHOB, LACTIC, PTT, CMP, PT #### [address] Mean Corpuscular HGB Conc 35.0 g/dL Normal 32.5-35.6 [facility] Comment on above: Performed By: #### C K, HS TROP, BNP, CBC, BHOB, LACTIC, PTT, CMP, PT #### [address] Platelet mean volume (Bld) [Entitic vol] 6.6 fL Normal 6.6-10.1 [facility] Comment on above: Result Comment: PERF ORMED BY: [place] [address] PATHOLOGIST SAWYER CORK SLABS GREYSON TORRES M.D. Performed By: #### C K, HS TROP, BNP, CBC, BHOB, LACTIC, PTT, CMP, PT #### [address] Platelets (Bld) [#/Vol] 404 10*3/uL Normal 150-450 [facility] Comment on above: Performed By: #### C K, HS TROP, BNP, CBC, BHOB, LACTIC, PTT, CMP, PT #### [address] RBC (Bld) [#/Vol] 3.21 10*6/uL Low 3.90-5.60 [facility] Comment on above: Performed By: #### C K, HS TROP, BNP, CBC, BHOB, LACTIC, PTT, CMP, PT #### [address] WBC (Bld) [#/Vol] 7.9 10*3/uL Normal 4.1-10.5 [facility] Comment on above: Performed By: #### C K, HS TROP, BNP, CBC, BHOB, LACTIC, PTT, CMP, PT #### [address] Basic Metabolic Panelon 02-0 Anion gap [Moles/Vol] 9.2 mmol/L Normal 6.0-15.0 [facility] Comment on above: Performed By: #### C K, HS TROP, BNP, CBC, BHOB, LACTIC, PTT, CMP, PT #### [address] Calcium [Mass/Vol] 8.9 mg/dL Normal 8.6-10.3 [facility] Comment on above: Performed By: #### C K, HS TROP, BNP, CBC, BHOB, LACTIC, PTT, CMP, PT #### [address] Chloride [Moles/Vol] 96 mmol/L Low 98-107 [facility] Comment on above: Performed By: #### C K, HS TROP, BNP, CBC, BHOB, LACTIC, PTT, CMP, PT #### [address] CO2 [Moles/Vol] 30.6 mmol/L Normal 21.0-31.0 [facility] Comment on above: Performed By: #### C K, HS TROP, BNP, CBC, BHOB, LACTIC, PTT, CMP, PT #### [address] Creatinine [Mass/Vol] 0.64 mg/dL Low 0.70-1.30 [facility] Comment on above: Performed By: #### C K, HS TROP, BNP, CBC, BHOB, LACTIC, PTT, CMP, PT #### [facility] [address] Creatinine Clr Calc Pharmacy 193.66 Normal [facility] Comment on above: Performed By: #### C K, HS TROP, BNP, CBC, BHOB, LACTIC, PTT, CMP, PT #### [facility] [address] [place] [address] [place] GFR/1.73 sq M.predicted MDRD (S/P/Bld) [Vol rate/Area] mL/min/{1.73_m2} Normal [facility] Comment on above: Performed By: #### C K, HS TROP, BNP, CBC, BHOB, LACTIC, PTT, CMP, PT #### [address] Glucose [Mass/Vol] 323 mg/dL High 70-100 [facility] Comment on above: Result Comment: [place] Glucose Reference Range is dependent on time and content of last meal. Glucose of more than 200 mg/dL in a nonstressed, ambulatory subject supports the diagnosis of Diabetes Mellitus. ADA recommended reference range Performed By: #### C K, HS TROP, BNP, CBC, BHOB, LACTIC, PTT, CMP, PT #### [address] Potassium [Moles/Vol] 3.8 mmol/L Normal 3.5-5.1 [facility] Comment on above: Performed By: #### C K, HS TROP, BNP, CBC, BHOB, LACTIC, PTT, CMP, PT #### [address] Sodium [Moles/Vol] 132 mmol/L Low 136-145 [facility] Comment on above: Performed By: #### C K, HS TROP, BNP, CBC, BHOB, LACTIC, PTT, CMP, PT #### [address] Urea nitrogen [Mass/Vol] 10 mg/dL Normal 7-25 [facility] Comment on above: Performed By: #### C K, HS TROP, BNP, CBC, BHOB, LACTIC, PTT, CMP, PT #### [facility] [address] [place] [address] C-Reactive Proteinon 025 C-Reactive Protein 27.0 mg/dL High 0.0-0.5 [facility] Comment on above: Result Comment: PERF ORMED BY: [place] [address] PATHOLOGIST SAWYER CORK SLABS GREYSON TORRES M.D. Performed By: #### C K, HS TROP, BNP, CBC, BHOB, LACTIC, PTT, CMP, PT #### [facility] [address] [place] [address] CT pelvis w conon 08-17-2024 CT pelvis w con [facility] [place] [address] [place] [address] CT Scan Report Signed Patient: Isaias Estrella MR#: [id number] : 2000 Acct:[id number] Age/Sex: 24 / M ADM Date: 08/14/24 Loc: Room: [address] [place] [address] Type: ADM IN Attending Dr: Vicky Espino MD Copies to: Vicky Espino MD Ordering Provider: Vicky Espino MD Date of Service: 08/17/24 CT/CT pelvis w con: Right iliac abscess with not improving pain CT pelvis w con 08/17/2024 11:56 AM SIGNS AND SYMPTOMS: Right iliac abscess with not improving pain CONTRAST: 90 mL of intravenous Isovue-300 TECHNIQUE: Multiple detector CT axial slices of the pelvis were obtained with IV contrast. Multiplanar reformats were performed and viewed on a separate workstation and reviewed to further define anatomy and possible pathology. CT was performed with one or more of the following dose reduction techniques: Automated exposure control, adjustment of the mA and/or kV according to patient size, or use of iterative reconstruction technique. COMPARISON: 08/14/2024. FINDINGS: ABDOMEN: Visualized Liver: Within normal limits. Visualized Kidneys: Within normal limits. Pelvis: Reproductive Organs: No pelvic masses. Ureters: Within normal limits. Bladder: Within normal limits. Bowel: Normal caliber. Mesenteric Lymph Nodes: No enlarged mesenteric lymph nodes. Peritoneum: There is a small amount of free fluid in the pelvis which is presumably reactive in nature. This is similar to the prior exam. Vessels: within normal limits Retroperitoneum: There is a pigtail catheter within a heterogeneous collection along the right iliac muscle. This collection is slightly smaller measuring 5.3 x 8.8 x 4.7 cm in greatest dimension. Abdominal Wall: Within normal limits. Bones: Bilateral L5 pars defects are present. There is mild grade 1 spondylolisthesis of L5 upon S1. Degenerative changes are noted in the sacroiliac joints. CT/CT pelvis w con IMPRESSION: There is a pigtail catheter within a heterogeneous collection along the right iliac muscle. This collection is slightly smaller measuring 5.3 x 8.8 x 4.7 cm in greatest dimension. No significant interval change otherwise. Impression dictated by: Imtiaz Kingsley M.D.08/17/2024 1:17 PM Dictation Location: [place] [address] Transcribed By: APRIL 08/17/24 1317 Dictated By: Imtiaz Kingsley II, MD 08/17/24 1312 Signed By: 08/17/24 1317 Normal [facility] Glucose Poct Glucometerson 0 08-17-2024 Glucose [Mass/Vol] 315 mg/dL Normal [facility] Comment on above: Result Comment: [facility] Glucose Reference Range is dependent on time and content of last meal. Glucose of more than 200 mg/dL in a nonstressed, ambulatory subject supports the diagnosis of Diabetes Mellitus. PERFORMED BY: [place] [address] PATHOLOGIST SAWYER CORK SLABS GREYSON TORRES M.D. Performed By: #### C K, HS TROP, BNP, CBC, BHOB, LACTIC, PTT, CMP, PT #### [address] Glucose [Mass/Vol] 390 mg/dL Normal [facility] Comment on above: Result Comment: [facility] Glucose Reference Range is dependent on time and content of last meal. Glucose of more than 200 mg/dL in a nonstressed, ambulatory subject supports the diagnosis of Diabetes Mellitus. PERFORMED BY: [address] [place] [address] PATHOLOGIST SAWYER CORK SLABS GREYSON TORRES M.D. Performed By: #### C K, HS TROP, BNP, CBC, BHOB, LACTIC, PTT, CMP, PT #### [address] Hemogram CBC Without Diffon 08-17-2024 Erythrocyte distribution width (RBC) [Ratio] 12.8 % Normal 12.0-14.8 [facility] Comment on above: Performed By: #### C K, HS TROP, BNP, CBC, BHOB, LACTIC, PTT, CMP, PT #### [address] Hematocrit (Bld) [Volume fraction] 30.0 % Low 38.8-50.0 [facility] Comment on above: Performed By: #### C K, HS TROP, BNP, CBC, BHOB, LACTIC, PTT, CMP, PT #### [address] Hemoglobin (Bld) [Mass/Vol] 10.7 g/dL Low 13.0-17.0 [facility] Comment on above: Performed By: #### C K, HS TROP, BNP, CBC, BHOB, LACTIC, PTT, CMP, PT #### [address] MCH (RBC) [Entitic mass] 33.8 pg Normal 27.5-35.2 [facility] Comment on above: Performed By: #### C K, HS TROP, BNP, CBC, BHOB, LACTIC, PTT, CMP, PT #### [address] MCV (RBC) [Entitic vol] 95.1 fL Normal 83.5-101 [facility] Comment on above: Performed By: #### C K, HS TROP, BNP, CBC, BHOB, LACTIC, PTT, CMP, PT #### [address] Mean Corpuscular HGB Conc 35.6 g/dL Normal 32.5-35.6 [facility] Comment on above: Performed By: #### C K, HS TROP, BNP, CBC, BHOB, LACTIC, PTT, CMP, PT #### [address] Platelet mean volume (Bld) [Entitic vol] 6.4 fL Low 6.6-10.1 [facility] Comment on above: Result Comment: PERF ORMED BY: [place] [address] PATHOLOGIST SAWYER CORK SLABS GREYSON TORRES M.D. Performed By: #### C K, HS TROP, BNP, CBC, BHOB, LACTIC, PTT, CMP, PT #### [address] Platelets (Bld) [#/Vol] 389 10*3/uL Normal 150-450 [facility] Comment on above: Performed By: #### C K, HS TROP, BNP, CBC, BHOB, LACTIC, PTT, CMP, PT #### [address] RBC (Bld) [#/Vol] 3.15 10*6/uL Low 3.90-5.60 [facility] Comment on above: Performed By: #### C K, HS TROP, BNP, CBC, BHOB, LACTIC, PTT, CMP, PT #### [address] WBC (Bld) [#/Vol] 6.4 10*3/uL Normal 4.1-10.5 [facility] Comment on above: Performed By: #### C K, HS TROP, BNP, CBC, BHOB, LACTIC, PTT, CMP, PT #### [address] Vancomycin [Mass/volume] in Serum or Plasma --peakOrdered By: Odette Ochoa on 08-17-2024 Vancomycin peak [Mass/Vol] Vancomycin [Mass/volume] in Serum or Plasma --peak 20.0-40.0 [facility] Comment on above: Last dose: - Vancomycin [Mass/volume] in Serum or Plasma --troughOrdered By: Odette Ochoa on 08-17-2024 Vancomycin trough [Mass/Vol] Serum or plasma trough vancomycin level Low 10.0-20.0 [facility] Comment on above: Last dose: - Vancomycin,Peakon 08-17-2024 Vancomycin,Peak 20.5 ug/mL Normal 20.0-40.0 [facility] Comment on above: Order Comment: Comme nt ?DRAW 1 HOUR AFTER INFUSION COMPLETES Date of last dose?: 20240816 Time of last dose?: 314 Result Comment: Last dose: - PERFORMED BY: [place] [address] PATHOLOGIST SAWYER CORK SLABS GREYSON TORRES M.D. Performed By: #### C K, HS TROP, BNP, CBC, BHOB, LACTIC, PTT, CMP, PT #### [facility] [address] [place], [place] [id number] [facility] Vancomycin,Troughon 08-17-19 Vancomycin,Trough 7.5 ug/mL Low 10.0-20.0 [facility] Comment on above: Order Comment: Time of next dose? 1329 Date of last dose?: 20240817 Time of last dose?: 427 Result Comment: Last dose: - PERFORMED BY: [address] [place] [id number] PATHOLOGIST SAWYER CORK SLABS GREYSON TORRES M.D. Performed By: #### C K, HS TROP, BNP, CBC, BHOB, LACTIC, PTT, CMP, PT #### [facility] [address] [place], [place] [id number] [place] C-Reactive Proteinon 025 C-Reactive Protein 31.0 mg/dL High 0.0-0.5 [facility] Comment on above: Result Comment: PERF ORMED BY: [address] [place] [id number] PATHOLOGIST SAWYER CORK SLABS GREYSON TORRES M.D. Performed By: #### C K, HS TROP, BNP, CBC, BHOB, LACTIC, PTT, CMP, PT #### [facility] [address] Creatinineon 08-16-2024 Creatinine [Mass/Vol] 0.54 mg/dL Low 0.70-1.30 [facility] Comment on above: Performed By: #### C K, HS TROP, BNP, CBC, BHOB, LACTIC, PTT, CMP, PT #### [address] Creatinine Clr Calc Pharmacy 221.84 Normal [facility] Comment on above: Result Comment: PERF ORMED BY: [place] [address] PATHOLOGIST SAWYER CORK SLABS GREYSON TORRES M.D. Performed By: #### C K, HS TROP, BNP, CBC, BHOB, LACTIC, PTT, CMP, PT #### [address] GFR/1.73 sq M.predicted MDRD (S/P/Bld) [Vol rate/Area] mL/min/{1.73_m2} Normal [facility] Comment on above: Performed By: #### C K, HS TROP, BNP, CBC, BHOB, LACTIC, PTT, CMP, PT #### [address] Glucose Poct Glucometerson 0 08-16-2024 Glucose [Mass/Vol] 285 mg/dL Normal [facility] Comment on above: Result Comment: [facility] Glucose Reference Range is dependent on time and content of last meal. Glucose of more than 200 mg/dL in a nonstressed, ambulatory subject supports the diagnosis of Diabetes Mellitus. PERFORMED BY: [place] [address] PATHOLOGIST SAWYER CORK SLABS GREYSON TORRES M.D. Performed By: #### C K, HS TROP, BNP, CBC, BHOB, LACTIC, PTT, CMP, PT #### [address] Glucose [Mass/Vol] 351 mg/dL Normal [facility] Comment on above: Result Comment: [place] om Glucose Reference Range is dependent on time and content of last meal. Glucose of more than 200 mg/dL in a nonstressed, ambulatory subject supports the diagnosis of Diabetes Mellitus. PERFORMED BY: [place] [address] PATHOLOGIST SAWYER CORK SLABS GREYSON TORRES M.D. Performed By: #### C K, HS TROP, BNP, CBC, BHOB, LACTIC, PTT, CMP, PT #### [address] Glucose [Mass/Vol] 370 mg/dL Normal [facility] Comment on above: Result Comment: [place] om Glucose Reference Range is dependent on time and content of last meal. Glucose of more than 200 mg/dL in a nonstressed, ambulatory subject supports the diagnosis of Diabetes Mellitus. PERFORMED BY: [place] [address] PATHOLOGIST SAWYER CORK SLABS GREYSON TORRES M.D. Performed By: #### C K, HS TROP, BNP, CBC, BHOB, LACTIC, PTT, CMP, PT #### [address] Glucose [Mass/Vol] 367 mg/dL Normal [facility] Comment on above: Result Comment: [place] om Glucose Reference Range is dependent on time and content of last meal. Glucose of more than 200 mg/dL in a nonstressed, ambulatory subject supports the diagnosis of Diabetes Mellitus. PERFORMED BY: [place] [address] PATHOLOGIST SAWYER CORK SLABS GREYSON TORRES M.D. Performed By: #### C K, HS TROP, BNP, CBC, BHOB, LACTIC, PTT, CMP, PT #### [address] Hemogram CBC Without Diffon 08-16-2024 Erythrocyte distribution width (RBC) [Ratio] 12.4 % Normal 12.0-14.8 [facility] Comment on above: Performed By: #### C K, HS TROP, BNP, CBC, BHOB, LACTIC, PTT, CMP, PT #### [address] Hematocrit (Bld) [Volume fraction] 32.1 % Low 38.8-50.0 [facility] Comment on above: Performed By: #### C K, HS TROP, BNP, CBC, BHOB, LACTIC, PTT, CMP, PT #### [address] Hemoglobin (Bld) [Mass/Vol] 11.5 g/dL Low 13.0-17.0 [facility] Comment on above: Performed By: #### C K, HS TROP, BNP, CBC, BHOB, LACTIC, PTT, CMP, PT #### [address] MCH (RBC) [Entitic mass] 34.5 pg Normal 27.5-35.2 [facility] Comment on above: Performed By: #### C K, HS TROP, BNP, CBC, BHOB, LACTIC, PTT, CMP, PT #### [address] MCV (RBC) [Entitic vol] 96.6 fL Normal 83.5-101 [facility] Comment on above: Performed By: #### C K, HS TROP, BNP, CBC, BHOB, LACTIC, PTT, CMP, PT #### [address] Mean Corpuscular HGB Conc 35.7 g/dL High 32.5-35.6 [facility] Comment on above: Performed By: #### C K, HS TROP, BNP, CBC, BHOB, LACTIC, PTT, CMP, PT #### [address] Platelet mean volume (Bld) [Entitic vol] 6.9 fL Normal 6.6-10.1 [facility] Comment on above: Result Comment: PERF ORMED BY: [place] [address] PATHOLOGIST SAWYER CORK SLABS GREYSON TORRES M.D. Performed By: #### C K, HS TROP, BNP, CBC, BHOB, LACTIC, PTT, CMP, PT #### [address] Platelets (Bld) [#/Vol] 383 10*3/uL Normal 150-450 [facility] Comment on above: Performed By: #### C K, HS TROP, BNP, CBC, BHOB, LACTIC, PTT, CMP, PT #### [address] RBC (Bld) [#/Vol] 3.32 10*6/uL Low 3.90-5.60 [facility] [facility] Comment on above: Performed By: #### C K, HS TROP, BNP, CBC, BHOB, LACTIC, PTT, CMP, PT #### [address] WBC (Bld) [#/Vol] 10.4 10*3/uL Normal 4.1-10.5 [facility] Comment on above: Performed By: #### C K, HS TROP, BNP, CBC, BHOB, LACTIC, PTT, CMP, PT #### [address] Vancomycin,Troughon 08-16-19 25 Vancomycin,Trough 3.8 ug/mL Low 10.0-20.0 [facility] Comment on above: Order Comment: Time of next dose? 010 Date of last dose?: [id number] Time of last dose?: 1699 Result Comment: Last dose: - PERFORMED BY: [place] [address] PATHOLOGIST SAWYER CORK SLABS GREYSON TORRES M.D. Performed By: #### C K, HS TROP, BNP, CBC, BHOB, LACTIC, PTT, CMP, PT #### [address] Anaerobic cultureOrdered By: Odette Ochoa on 08-15-2024 Bacteria identified Anaer cx Nom (Unsp spec) Anaerobic culture [facility] Bacteria identified Aer cx N om (Unsp spec)Ordered By: Odette Ochoa on 08-15-2024 Aerobic Culture Abnormal [facility] Basic Metabolic Panelon Anion gap [Moles/Vol] 19.3 mmol/L High 6.0-15.0 [facility] Comment on above: Performed By: #### C K, HS TROP, BNP, CBC, BHOB, LACTIC, PTT, CMP, PT #### [facility] [address] Calcium [Mass/Vol] 9.4 mg/dL Normal 8.6-10.3 [facility] Comment on above: Performed By: #### C K, HS TROP, BNP, CBC, BHOB, LACTIC, PTT, CMP, PT #### [facility] [address] Chloride [Moles/Vol] 99 mmol/L Normal 98-107 [facility] Comment on above: Performed By: #### C K, HS TROP, BNP, CBC, BHOB, LACTIC, PTT, CMP, PT #### [facility] [address] CO2 [Moles/Vol] 21.8 mmol/L Normal 21.0-31.0 [facility] Comment on above: Performed By: #### C K, HS TROP, BNP, CBC, BHOB, LACTIC, PTT, CMP, PT #### [facility] [address] Creatinine [Mass/Vol] 0.63 mg/dL Low 0.70-1.30 [facility] Comment on above: Performed By: #### C K, HS TROP, BNP, CBC, BHOB, LACTIC, PTT, CMP, PT #### [facility] [address] [place] [address] [place] Creatinine Clr Calc Pharmacy 188.88 Normal [facility] Comment on above: Performed By: #### C K, HS TROP, BNP, CBC, BHOB, LACTIC, PTT, CMP, PT #### [facility] [address] [place] [address] [place] GFR/1.73 sq M.predicted MDRD (S/P/Bld) [Vol rate/Area] mL/min/{1.73_m2} Normal [facility] Comment on above: Performed By: #### C K, HS TROP, BNP, CBC, BHOB, LACTIC, PTT, CMP, PT #### [address] Glucose [Mass/Vol] 409 mg/dL High 70-100 [facility] Comment on above: Result Comment: [facility] Glucose Reference Range is dependent on time and content of last meal. Glucose of more than 200 mg/dL in a nonstressed, ambulatory subject supports the diagnosis of Diabetes Mellitus. ADA recommended reference range Performed By: #### C K, HS TROP, BNP, CBC, BHOB, LACTIC, PTT, CMP, PT #### [address] Potassium [Moles/Vol] 5.1 mmol/L Normal 3.5-5.1 [facility] Comment on above: Performed By: #### C K, HS TROP, BNP, CBC, BHOB, LACTIC, PTT, CMP, PT #### [address] Sodium [Moles/Vol] 135 mmol/L Low 136-145 [facility] Comment on above: Performed By: #### C K, HS TROP, BNP, CBC, BHOB, LACTIC, PTT, CMP, PT #### [address] Urea nitrogen [Mass/Vol] 12 mg/dL Normal 7-25 [facility] Comment on above: Performed By: #### C K, HS TROP, BNP, CBC, BHOB, LACTIC, PTT, CMP, PT #### [address] Blood Cultureon 08-15-2024 Bacteria identified Cx Nom (Bld) NO GROWTH 5 DAYS PERFORMED BY: [place] [address] PATHOLOGIST SAWYER CORK SLABS GREYSON TORRES M.D. Normal [facility] Comment on above: Performed By: #### C K, HS TROP, BNP, CBC, BHOB, LACTIC, PTT, CMP, PT #### [address] Bacteria identified Cx Nom (Bld) NO GROWTH 5 DAYS PERFORMED BY: [place] [address] PATHOLOGIST SAWYER CORK SLABS GREYSON TORRES M.D. Normal [facility] Comment on above: Performed By: #### C K, HS TROP, BNP, CBC, BHOB, LACTIC, PTT, CMP, PT #### [address] C-Reactive Proteinon 025 C-Reactive Protein 31.5 mg/dL High 0.0-0.5 [facility] Comment on above: Result Comment: PERF ORMED BY: [place] [address] PATHOLOGIST SAWYER CORK SLABS GREYSON TORRES M.D. Performed By: #### C K, HS TROP, BNP, CBC, BHOB, LACTIC, PTT, CMP, PT #### [address] Complete Blood Count Auto Di ffon 08-15-2024 Basophils (Bld) [#/Vol] 0.1 10*3/uL Normal 0.0-0.2 [facility] Comment on above: Result Comment: PERF ORMED BY: [place] [address] PATHOLOGIST SAWYER CORK SLABS GREYSON TORRES M.D. Performed By: #### C K, HS TROP, BNP, CBC, BHOB, LACTIC, PTT, CMP, PT #### [address] Basophils/100 WBC (Bld) 0.4 % Normal . [facility] Comment on above: Performed By: #### C K, HS TROP, BNP, CBC, BHOB, LACTIC, PTT, CMP, PT #### [address] Eosinophils (Bld) [#/Vol] 0.0 10*3/uL Normal 0.0-0.45 [facility] Comment on above: Performed By: #### C K, HS TROP, BNP, CBC, BHOB, LACTIC, PTT, CMP, PT #### [address] Eosinophils/100 WBC (Bld) 0.1 % Normal . [facility] Comment on above: Performed By: #### C K, HS TROP, BNP, CBC, BHOB, LACTIC, PTT, CMP, PT #### [address] Erythrocyte distribution width (RBC) [Ratio] 12.1 % Normal 12.0-14.8 [facility] Comment on above: Performed By: #### C K, HS TROP, BNP, CBC, BHOB, LACTIC, PTT, CMP, PT #### [address] Hematocrit (Bld) [Volume fraction] 33.7 % Low 38.8-50.0 [facility] Comment on above: Performed By: #### C K, HS TROP, BNP, CBC, BHOB, LACTIC, PTT, CMP, PT #### [address] Hemoglobin (Bld) [Mass/Vol] 11.5 g/dL Low 13.0-17.0 [facility] Comment on above: Performed By: #### C K, HS TROP, BNP, CBC, BHOB, LACTIC, PTT, CMP, PT #### [address] Lymphocytes (Bld) [#/Vol] 1.0 10*3/uL Normal 1.00-4.8 [facility] Comment on above: Performed By: #### C K, HS TROP, BNP, CBC, BHOB, LACTIC, PTT, CMP, PT #### [address] Lymphocytes/100 WBC (Bld) 7.2 % Normal . [facility] Comment on above: Performed By: #### C K, HS TROP, BNP, CBC, BHOB, LACTIC, PTT, CMP, PT #### [address] MCH (RBC) [Entitic mass] 33.8 pg Normal 27.5-35.2 [facility] Comment on above: Performed By: #### C K, HS TROP, BNP, CBC, BHOB, LACTIC, PTT, CMP, PT #### [address] MCV (RBC) [Entitic vol] 99.0 fL Normal 83.5-101 [facility] Comment on above: Performed By: #### C K, HS TROP, BNP, CBC, BHOB, LACTIC, PTT, CMP, PT #### [address] Mean Corpuscular HGB Conc 34.2 g/dL Normal 32.5-35.6 [facility] Comment on above: Performed By: #### C K, HS TROP, BNP, CBC, BHOB, LACTIC, PTT, CMP, PT #### [address] Monocytes (Bld) [#/Vol] 1.5 10*3/uL High 0.0-0.8 [facility] Comment on above: Performed By: #### C K, HS TROP, BNP, CBC, BHOB, LACTIC, PTT, CMP, PT #### [address] Monocytes/100 WBC (Bld) 11.1 % Normal . [facility] Comment on above: Performed By: #### C K, HS TROP, BNP, CBC, BHOB, LACTIC, PTT, CMP, PT #### [address] Neutrophils (Bld) [#/Vol] 11.3 10*3/uL High 1.8-7.7 [facility] Comment on above: Performed By: #### C K, HS TROP, BNP, CBC, BHOB, LACTIC, PTT, CMP, PT #### [facility] [address] Neutrophils/100 WBC (Bld) 81.2 % Normal . [facility] Comment on above: Performed By: #### C K, HS TROP, BNP, CBC, BHOB, LACTIC, PTT, CMP, PT #### [facility] [address] NRBC% 0.0 /100{WBC} Normal 0-0.5 [facility] Comment on above: Performed By: #### C K, HS TROP, BNP, CBC, BHOB, LACTIC, PTT, CMP, PT #### [address] Platelet mean volume (Bld) [Entitic vol] 7.0 fL Normal 6.6-10.1 [facility] Comment on above: Performed By: #### C K, HS TROP, BNP, CBC, BHOB, LACTIC, PTT, CMP, PT #### [facility] [address] Platelets (Bld) [#/Vol] 368 10*3/uL Normal 150-450 [facility] Comment on above: Performed By: #### C K, HS TROP, BNP, CBC, BHOB, LACTIC, PTT, CMP, PT #### [address] RBC (Bld) [#/Vol] 3.40 10*6/uL Low 3.90-5.60 [facility] Comment on above: Performed By: #### C K, HS TROP, BNP, CBC, BHOB, LACTIC, PTT, CMP, PT #### [address] WBC (Bld) [#/Vol] 13.9 10*3/uL High 4.1-10.5 [facility] Comment on above: Performed By: #### C K, HS TROP, BNP, CBC, BHOB, LACTIC, PTT, CMP, PT #### [address] Glucose Poct Glucometerson 0 08-15-2024 Glucose [Mass/Vol] 316 mg/dL Normal [facility] Comment on above: Result Comment: [place] om Glucose Reference Range is dependent on time and content of last meal. Glucose of more than 200 mg/dL in a nonstressed, ambulatory subject supports the diagnosis of Diabetes Mellitus. PERFORMED BY: [place] [address] PATHOLOGIST SAWYER CORK SLABS GREYSON TORRES M.D. Performed By: #### C K, HS TROP, BNP, CBC, BHOB, LACTIC, PTT, CMP, PT #### [address] Commemt1 Glu2: Cleaned Meter Normal [facility] Comment on above: Result Comment: PERF ORMED BY: [place] [address] PATHOLOGIST SAWYER CORK SLABS GREYSON TORRES M.D. Performed By: #### C K, HS TROP, BNP, CBC, BHOB, LACTIC, PTT, CMP, PT #### [address] Glucose [Mass/Vol] 324 mg/dL Normal [facility] Comment on above: Result Comment: [place] [facility] Glucose Reference Range is dependent on time and content of last meal. Glucose of more than 200 mg/dL in a nonstressed, ambulatory subject supports the diagnosis of Diabetes Mellitus. Performed By: #### C K, HS TROP, BNP, CBC, BHOB, LACTIC, PTT, CMP, PT #### [address] Commemt1 Glu2: Cleaned Meter Normal [facility] Comment on above: Result Comment: PERF ORMED BY: [place] [address] PATHOLOGIST SAWYER CORK SLABS GREYSON TORRES M.D. Performed By: #### C K, HS TROP, BNP, CBC, BHOB, LACTIC, PTT, CMP, PT #### [facility] [address] Glucose [Mass/Vol] 313 mg/dL Normal [facility] Comment on above: Result Comment: [place] [facility] Glucose Reference Range is dependent on time and content of last meal. Glucose of more than 200 mg/dL in a nonstressed, ambulatory subject supports the diagnosis of Diabetes Mellitus. Performed By: #### C K, HS TROP, BNP, CBC, BHOB, LACTIC, PTT, CMP, PT #### [address] Glucose [Mass/Vol] 374 mg/dL Normal [facility] Comment on above: Result Comment: [place] [facility] Glucose Reference Range is dependent on time and content of last meal. Glucose of more than 200 mg/dL in a nonstressed, ambulatory subject supports the diagnosis of Diabetes Mellitus. PERFORMED BY: [place] [address] PATHOLOGIST SAWYER CORK SLABS GREYSON TORRES M.D. Performed By: #### C K, HS TROP, BNP, CBC, BHOB, LACTIC, PTT, CMP, PT #### [address] Commemt1 Normal [facility] Comment on above: Result Comment: Glu2 : Will Repeat Test Performed By: #### C K, HS TROP, BNP, CBC, BHOB, LACTIC, PTT, CMP, PT #### [address] Commemt2 WILL NOTIFY /ROMAN Normal [facility] Comment on above: Result Comment: PERF ORMED BY: [place] [address] PATHOLOGIST SAWYER CORK SLABS GREYSON TORRES M.D. Performed By: #### C K, HS TROP, BNP, CBC, BHOB, LACTIC, PTT, CMP, PT #### [address] Glucose [Mass/Vol] 412 mg/dL Off scale high [facility] Comment on above: Result Comment: [place] [facility] Glucose Reference Range is dependent on time and content of last meal. Glucose of more than 200 mg/dL in a nonstressed, ambulatory subject supports the diagnosis of Diabetes Mellitus. Performed By: #### C K, HS TROP, BNP, CBC, BHOB, LACTIC, PTT, CMP, PT #### [facility] [address] Gram stain microscopyOrdered By: Odette Ochoa on 08-15-2024 Microscopic observation Gram stain Nom (Unsp spec) Gram stain microscopy [facility] INR in Platelet poor plasma by Coagulation assayOrdered By: Georgia Burkett on 08-15-2024 INR Coag (PPP) [Relative time] INR in Platelet poor plasma by Coagulation assay [facility] Comment on above: INR Therapeutic Rang e A) Pre- and Peroperative OAT started two weeks before surgery. NOT HIP SURGERY: 1.5 - 2.5 HIP SURGERY: 2 - 3B) Primary and secondary prevention of venous THROMBOSIS: 2 - 3C) Active venous thrombosis, pulmonary embolismand prevention of recurrent venous thrombosis: 2 - 3D) Prevention of arterial thromboembolismincluding patients with mechanical heart valves: 3 - 4.5 Laboratory - Microbiology an d Antimicrobial susceptibilityOrdered By: Jorge England on 08-15-2024 Bacteria identified Cx Nom (Bld) NO GROWTH 5 DAYS [facility] Bacteria identified Cx Nom (Bld) NO GROWTH 5 DAYS [facility] Magnesiumon 08-15-2024 Magnesium [Mass/Vol] 1.8 mg/dL Low 1.9-2.7 [facility] Comment on above: Result Comment: PERF ORMED BY: [place] [address] PATHOLOGIST SAWYER CORK SLABS GREYSON TORRES M.D. Performed By: #### C K, HS TROP, BNP, CBC, BHOB, LACTIC, PTT, CMP, PT #### [facility] [address] [place] [address] No Panel InformationOrdered By: Georgia Burkett on 08-15-2024 Bedside Glucose #2 Comment Will notify /roman [facility] Partial Thromboplastin Timeo n 08-15-2024 aPTT Coag (Bld) [Time] 27.6 s Normal 25.1-36.5 [facility] Comment on above: Result Comment: A he matocrit value greater than 55% may lead to inaccurate results in coagulation testing. Patients having hematocrit values >55% require a special collection tube for coagulation studies. Please contact the laboratory at [phone] for redraw instructions. PERFORMED BY: [place] [address] PATHOLOGIST SAWYER CORK SLABS GREYSON TORRES M.D. Performed By: #### C K, HS TROP, BNP, CBC, BHOB, LACTIC, PTT, CMP, PT #### [place] [id number] [facility] Prothrombin Time INRon 08-15 INR Coag (PPP) [Relative time] 1.1 {INR} Normal [facility] Comment on above: Result Comment: INR Therapeutic Range A) Pre- and Peroperative OAT started two weeks before surgery. NOT HIP SURGERY: 1.5 - 2.5 HIP SURGERY: 2 - 3 B) Primary and secondary prevention of venous THROMBOSIS: 2 - 3 C) Active venous thrombosis, pulmonary embolism and prevention of recurrent venous thrombosis: 2 - 3 D) Prevention of arterial thromboembolism including patients with mechanical heart valves: 3 - 4.5 Performed By: #### C K, HS TROP, BNP, CBC, BHOB, LACTIC, PTT, CMP, PT #### [place] [id number] [facility] PT Coag (PPP) [Time] 12.4 s Normal 9.0-12.9 [facility] Comment on above: Result Comment: A he matocrit value greater than 55% may lead to inaccurate results in coagulation testing. Patients having hematocrit values >55% require a special collection tube for coagulation studies. Please contact the laboratory at [phone] for redraw instructions. Performed By: #### C K, HS TROP, BNP, CBC, BHOB, LACTIC, PTT, CMP, PT #### [address] [address] [facility] Prothrombin time (PT)Ordered By: Georgia Burkett on 08-15-2024 PT Coag (PPP) [Time] Prothrombin time (PT) 9.0- 12.9 [facility] Comment on above: A hematocrit value g reater than 55% may lead to inaccurate results in coagulation testing. Patients having hematocrit values >55% require a special collection tube for coagulation studies. Please contact the laboratory at [phone] for redraw instructions. US abdomen limitedon 025 US abdomen limited [facility] [place] [address] CT Scan Report Signed Patient: Isaias Estrella MR#: [id number] : 2000 Acct:[id number] Age/Sex: 24 / M ADM Date: 08/14/24 Loc: Room: [address] [place] [address] Type: ADM IN Attending Dr: Vicky Espino MD Copies to: Vicky Espino MD Ordering Provider: Vicky Espino MD Date of Service: 08/15/24 US/US abdomen limited: ? abcess per Radiologist ([id number]) CT/CT guided drainage: ABSCESS DRAIN CT GUIDED right iliopsoas muscle abscess drainage with pigtail catheter placement.: CLINICAL HISTORY: Right iliopsoas muscle abscess COMPARISON : Outside CT abdomen and pelvis 08/14/2024 FINDINGS: After questions were answered, informed consent was obtained. The patient was initially brought into the ultrasound suite and imaging of the abdomen/right groin region demonstrates a loculated collection involving the right iliopsoas muscle only partially visualized by ultrasound. Given the partial visualization, the patient was then moved to the CT scanner. The patient was placed supineon the CT table and the right iliopsoas abscess was selected for drainage. The skin over the right iliopsoas abscesswas prepped and draped in normal sterile fashion. 1% lidocaine was utilized for local anesthesia. Utilizing CT guidance, an 8 Greek pigtail drain was advanced into the abscess via trocar approach. Approximately 100 mL of purulent material was aspirated from the drain and sent to pathology for further evaluation. The drain was pigtailed in place and attached to the skin with a stay fix. The drain was placed to bulb suction. The patient tolerated procedure well without immediate complication. Please note that the patient was monitored throughout the procedure by nursing personnel. This CT exam was performed using one or more following dose reduction techniques: Automated exposure control, adjustment of the mA and/or kV according to patient size, or use of iterative reconstruction technique. CT/CT guided drainage IMPRESSION: Successful CT-guided abscess drainage. Impression dictated by: Jhon Bhardwaj Jr., D.O.08/15/2024 2:16 PM Dictation Location: [place] [address] Transcribed By: [facility] 08/15/24 1416 Dictated By: Jhon Bhardwaj Jr, DO 08/15/24 1354 Signed By: 08/15/24 1416 Normal [facility] Vancomycin,Peakon 08-15-2024 Vancomycin,Peak 12.7 ug/mL Low 20.0-40.0 [facility] Comment on above: Order Comment: Comme nt ?DRAW 1 HOUR AFTER INFUSION COMPLETES Date of last dose?: 20240814 Time of last dose?: 1700 Result Comment: Last dose: - PERFORMED BY: [place] [address] PATHOLOGIST SAWYER CORK SLABS GREYSON TORRES M.D. Performed By: #### C K, HS TROP, BNP, CBC, BHOB, LACTIC, PTT, CMP, PT #### [address] aPTT in Platelet poor plasma by Coagulation assayOrdered By: Georgia Burkett on 08-15-2024 aPTT Coag (PPP) [Time] Activated partial thromboplastin time (aPTT) in platelet poor plasma by coagulation a 25.1-36.5 [facility] Comment on above: A hematocrit value g reater than 55% may lead to inaccurate results in coagulation testing. Patients having hematocrit values >55% require a special collection tube for coagulation studies. Please contact the laboratory at [phone] for redraw instructions. Alanine aminotransferase [En zymatic activity/volume] in Serum or PlasmaOrdered By: Senia Fernandez on 08-08-2024 ALT [Catalytic activity/Vol] Alanine aminotransferase [Enzymatic activity/volume] in Serum or Plasma [facility] Albumin [Mass/volume] in Ser um or Plasma by Bromocresol green (BCG) dye binding methoOrdered By: Senia Fernandez on 08-08-2024 Albumin BCG dye [Mass/Vol] Albumin [Mass/volume] in Serum or Plasma by Bromocresol green (BCG) dye binding metho 3.5-5.7 [facility] Alkaline phosphatase [Enzyma tic activity/volume] in Serum or PlasmaOrdered By: Senia Fernandez on 08-08-2024 ALP [Catalytic activity/Vol] Alkaline phosphatase [Enzymatic activity/volume] in Serum or Plasma High 34-104 [facility] Amphetamine Screen Ql (U)Ord ered By: Senia Fernandez on 08-08-2024 Amphetamines Ql (U) Amphetamines screen Negativ e [facility] Appearance of UrineOrdered B y: Senia Fernandez on 08-08-2024 Appearance (U) Urine appearance Clear [facility] Arterial Blood Gason 025 ABG Base Excess -3.0 mmol/L Normal -3.0-3.0 [facility] Comment on above: Performed By: #### C K, HS TROP, BNP, CBC, BHOB, LACTIC, PTT, CMP, PT #### [facility] [address] ABG Frac Inspired O2 21 % Normal [facility] Comment on above: Performed By: #### C K, HS TROP, BNP, CBC, BHOB, LACTIC, PTT, CMP, PT #### [facility] [address] ABG Oxygen Content 8.3 mmol/L Normal 6.6-9.7 [facility] Comment on above: Performed By: #### C K, HS TROP, BNP, CBC, BHOB, LACTIC, PTT, CMP, PT #### [facility] [address] ABG Oxygen Saturation 97.4 % Normal 95.0-100.0 [facility] Comment on above: Performed By: #### C K, HS TROP, BNP, CBC, BHOB, LACTIC, PTT, CMP, PT #### [facility] [address] ABG PCO2 33.3 mm[Hg] Low 35.0-45.0 [facility] Comment on above: Performed By: #### C K, HS TROP, BNP, CBC, BHOB, LACTIC, PTT, CMP, PT #### [address] ABG PH 7.41 Normal 7.35-7.45 [facility] Comment on above: Performed By: #### C K, HS TROP, BNP, CBC, BHOB, LACTIC, PTT, CMP, PT #### [address] ABG PO2 86.9 mm[Hg] Normal 80.0-100.0 [facility] Comment on above: Performed By: #### C K, HS TROP, BNP, CBC, BHOB, LACTIC, PTT, CMP, PT #### [address] Respiratory Critical Normal [facility] Comment on above: Result Comment: Crit ical Value called on: 08/08/2024 at 21:16 PERFORMED BY: [place] [address] PATHOLOGIST SAWYER CORK SLABS GREYSON TORRES M.D. Performed By: #### C K, HS TROP, BNP, CBC, BHOB, LACTIC, PTT, CMP, PT #### [address] VBG Draw Site Right Radial Normal [facility] Comment on above: Performed By: #### C K, HS TROP, BNP, CBC, BHOB, LACTIC, PTT, CMP, PT #### [address] Arterial Blood GasOrdered By : Senia Fernandez on 08-08-2024 CO2 [Moles/Vol] 21.8 mmol/L Low 23.0-27.0 [facility] Comment on above: Performed By: #### C K, HS TROP, BNP, CBC, BHOB, LACTIC, PTT, CMP, PT #### [address] HCO3 (Bld) [Moles/Vol] 20.8 mmol/L Low 23.0-29.0 [facility] Comment on above: Performed By: #### C K, HS TROP, BNP, CBC, BHOB, LACTIC, PTT, CMP, PT #### [facility] [address] Aspartate aminotransferase [ Enzymatic activity/volume] in Serum or PlasmaOrdered By: Senia Fernadnez on 08-08-2024 AST [Catalytic activity/Vol] Aspartate aminotransferase [Enzymatic activity/volume] in Serum or Plasma Low 13-39 [facility] B-Type Natriuretic Peptideon 08-08-2024 Natriuretic peptide B (Bld) [Mass/Vol] 50.0 pg/mL Normal 5-100 [facility] Comment on above: Result Comment: PERF ORMED BY: [address] [place] [address] PATHOLOGIST SAWYER CORK SLABS GREYSON TORRES M.D. Performed By: #### C K, HS TROP, BNP, CBC, BHOB, LACTIC, PTT, CMP, PT #### [facility] [address] Barbiturates [Presence] in U rine by Screen methodOrdered By: Senia Fernandez on 08-08-2024 Barbiturates Screen Ql (U) Barbiturates [Presence] in Urine by Screen method Negative [facility] Basophils Auto (Bld) [#/Vol] Ordered By: Senia Fernandez on 08-08-2024 Basophils (Bld) [#/Vol] Automated basophil count 0.0-0.2 [facility] Basophils/100 WBC Auto (Bld) Ordered By: Senia Fernandez on 08-08-2024 Basophils/100 WBC (Bld) Automated basophil % . [facility] Benzodiazepines Screen Ql (U )Ordered By: Senia Fernandez on 08-08-2024 Benzodiazepines Ql (U) Benzodiazepines [Presence] in Urine by Screen method Negative [facility] Benzoylecgonine [Presence] i n Urine by Screen methodOrdered By: Senia Fernandez on 08-08-2024 Benzoylecgonine Screen Ql (U) Benzoylecgonine [Presence] in Urine by Screen method Negative [facility] Beta Hydroxybuterateon 08-08 Beta Hydroxybuterate 1.75 mmol/L High 0.02-0.27 [facility] Comment on above: Result Comment: PERF ORMED BY: [facility] [address] [place] [address] PATHOLOGIST SAWYER CORK SLABS GREYSON TORRES M.D. Performed By: #### C K, HS TROP, BNP, CBC, BHOB, LACTIC, PTT, CMP, PT #### [facility] [address] Beta hydroxybutyrate [Moles/ volume] in Serum or PlasmaOrdered By: Senia Fernandez on 08-08-2024 Beta hydroxybutyrate [Moles/Vol] Beta hydroxybutyrate [Moles/volume] in Serum or Plasma High 0.02-0.27 [facility] Bilirubin Test strip Ql (U)O rdered By: Senia Fernandez on 08-08-2024 Bilirubin Ql (U) Bilirubin.total [Presence] in Urine by Test strip Negative [facility] Bilirubin.total [Mass/volume ] in Serum or PlasmaOrdered By: Senia Fernandez on 08-08-2024 Bilirubin [Mass/Vol] Bilirubin.total [Mass/volume] in Serum or Plasma 0.3-1.0 [facility] Calcium [Mass/volume] in Ser um or PlasmaOrdered By: Senia Fernandez on 08-08-2024 Calcium [Mass/Vol] Calcium [Mass/volume ] in Serum or Plasma 8.6-10.3 [facility] Cannabinoids [Presence] in U rine by Screen methodOrdered By: Senia Fernandez on 08-08-2024 Cannabinoids Screen Ql (U) Cannabinoids [Presence] in Urine by Screen method Negative [facility] Comment on above: These are unconfirme d results and should not be used for legal purposes. Drug Cut-Off Concentration: AMPH 1000 ng/mL KG 200 ng/mL JOHNSON 200 ng/mL COCM 300 ng/mL OP 300 ng/mL PCP 25 ng/mL THC 20 ng/mL Carbon dioxide, total [Moles /volume] in Serum or PlasmaOrdered By: Senia Fernandez on 08-08-2024 CO2 [Moles/Vol] Carbon dioxide, tota l [Moles/volume] in Serum or Plasma 21.0-31.0 [facility] Chloride [Moles/volume] in S maryam or PlasmaOrdered By: Senia Fernandez on 08-08-2024 Chloride [Moles/Vol] Chloride [Moles/vol ume] in Serum or Plasma 98-107 [facility] Color Auto (U)Ordered By: Fortunato Fernandez on 08-08-2024 Color (U) Color of Urine by Auto Yellow [facility] Auto Di ffon 08-08-2024 Basophils (Bld) [#/Vol] 0.0 10*3/uL Normal 0.0-0.2 [facility] Comment on above: Result Comment: PERF ORMED BY: [place] [address] PATHOLOGIST SAWYER CORK SLABS GREYSON TORRES M.D. Performed By: #### C K, HS TROP, BNP, CBC, BHOB, LACTIC, PTT, CMP, PT #### [place] [address] [place] Basophils/100 WBC (Bld) 0.4 % Normal . [facility] Comment on above: Performed By: #### C K, HS TROP, BNP, CBC, BHOB, LACTIC, PTT, CMP, PT #### [place] [address] [place] Eosinophils (Bld) [#/Vol] 0.0 10*3/uL Normal 0.0-0.45 [facility] Comment on above: Performed By: #### C K, HS TROP, BNP, CBC, BHOB, LACTIC, PTT, CMP, PT #### [place] [address] [place] Eosinophils/100 WBC (Bld) 0.5 % Normal . [facility] Comment on above: Performed By: #### C K, HS TROP, BNP, CBC, BHOB, LACTIC, PTT, CMP, PT #### [place] [id number] [place] Erythrocyte distribution width (RBC) [Ratio] 12.4 % Normal 12.0-14.8 [facility] Comment on above: Performed By: #### C K, HS TROP, BNP, CBC, BHOB, LACTIC, PTT, CMP, PT #### [address] Hematocrit (Bld) [Volume fraction] 38.9 % Normal 38.8-50.0 [facility] Comment on above: Performed By: #### C K, HS TROP, BNP, CBC, BHOB, LACTIC, PTT, CMP, PT #### [address] Hemoglobin (Bld) [Mass/Vol] 13.6 g/dL Normal 13.0-17.0 [facility] Comment on above: Performed By: #### C K, HS TROP, BNP, CBC, BHOB, LACTIC, PTT, CMP, PT #### [address] Lymphocytes (Bld) [#/Vol] 1.0 10*3/uL Normal 1.00-4.8 [facility] Comment on above: Performed By: #### C K, HS TROP, BNP, CBC, BHOB, LACTIC, PTT, CMP, PT #### [address] Lymphocytes/100 WBC (Bld) 14.5 % Normal . [facility] Comment on above: Performed By: #### C K, HS TROP, BNP, CBC, BHOB, LACTIC, PTT, CMP, PT #### [address] MCH (RBC) [Entitic mass] 34.4 pg Normal 27.5-35.2 [facility] Comment on above: Performed By: #### C K, HS TROP, BNP, CBC, BHOB, LACTIC, PTT, CMP, PT #### [address] MCV (RBC) [Entitic vol] 98.3 fL Normal 83.5-101 [facility] Comment on above: Performed By: #### C K, HS TROP, BNP, CBC, BHOB, LACTIC, PTT, CMP, PT #### [address] Mean Corpuscular HGB Conc 35.0 g/dL Normal 32.5-35.6 [facility] Comment on above: Performed By: #### C K, HS TROP, BNP, CBC, BHOB, LACTIC, PTT, CMP, PT #### [address] Monocytes (Bld) [#/Vol] 1.4 10*3/uL High 0.0-0.8 [facility] Comment on above: Performed By: #### C K, HS TROP, BNP, CBC, BHOB, LACTIC, PTT, CMP, PT #### [address] Monocytes/100 WBC (Bld) 18.44 % Normal 0.00-20.00 [facility] Comment on above: Performed By: #### C K, HS TROP, BNP, CBC, BHOB, LACTIC, PTT, CMP, PT #### [address] Monocytes/100 WBC (Bld) 21.1 % Normal . [facility] Comment on above: Performed By: #### C K, HS TROP, BNP, CBC, BHOB, LACTIC, PTT, CMP, PT #### [address] Neutrophils (Bld) [#/Vol] 4.2 10*3/uL Normal 1.8-7.7 [facility] Comment on above: Performed By: #### C K, HS TROP, BNP, CBC, BHOB, LACTIC, PTT, CMP, PT #### [address] Neutrophils/100 WBC (Bld) 63.5 % Normal . [facility] Comment on above: Performed By: #### C K, HS TROP, BNP, CBC, BHOB, LACTIC, PTT, CMP, PT #### [address] NRBC% 0.1 /100{WBC} Normal 0-0.5 [facility] Comment on above: Performed By: #### C K, HS TROP, BNP, CBC, BHOB, LACTIC, PTT, CMP, PT #### [address] Platelet mean volume (Bld) [Entitic vol] 6.7 fL Normal 6.6-10.1 [facility] Comment on above: Performed By: #### C K, HS TROP, BNP, CBC, BHOB, LACTIC, PTT, CMP, PT #### [address] Platelets (Bld) [#/Vol] 313 10*3/uL Normal 150-450 [facility] Comment on above: Performed By: #### C K, HS TROP, BNP, CBC, BHOB, LACTIC, PTT, CMP, PT #### [address] RBC (Bld) [#/Vol] 3.96 10*6/uL Normal 3.90-5.60 [facility] Comment on above: Performed By: #### C K, HS TROP, BNP, CBC, BHOB, LACTIC, PTT, CMP, PT #### [address] WBC (Bld) [#/Vol] 6.6 10*3/uL Normal 4.1-10.5 [facility] Comment on above: Performed By: #### C K, HS TROP, BNP, CBC, BHOB, LACTIC, PTT, CMP, PT #### [address] Comprehensive Metabolic Pane josé manuel 08-08-2024 Albumin [Mass/Vol] 3.6 g/dL Normal 3.5-5.7 [facility] Comment on above: Performed By: #### C K, HS TROP, BNP, CBC, BHOB, LACTIC, PTT, CMP, PT #### [address] [place] [address] [place] Albumin/Globulin [Mass ratio] 1.1 {ratio} Normal [facility] Comment on above: Performed By: #### C K, HS TROP, BNP, CBC, BHOB, LACTIC, PTT, CMP, PT #### [address] ALP [Catalytic activity/Vol] 133 U/L High 34-104 [facility] Comment on above: Performed By: #### C K, HS TROP, BNP, CBC, BHOB, LACTIC, PTT, CMP, PT #### [address] ALT [Catalytic activity/Vol] 9 U/L Normal 7-52 [facility] Comment on above: Performed By: #### C K, HS TROP, BNP, CBC, BHOB, LACTIC, PTT, CMP, PT #### [address] Anion gap [Moles/Vol] 12.8 mmol/L Normal 6.0-15.0 [facility] Comment on above: Performed By: #### C K, HS TROP, BNP, CBC, BHOB, LACTIC, PTT, CMP, PT #### [address] AST [Catalytic activity/Vol] 9 U/L Low 13-39 [facility] Comment on above: Performed By: #### C K, HS TROP, BNP, CBC, BHOB, LACTIC, PTT, CMP, PT #### [address] Bilirubin [Mass/Vol] 0.5 mg/dL Normal 0.3-1.0 [facility] Comment on above: Performed By: #### C K, HS TROP, BNP, CBC, BHOB, LACTIC, PTT, CMP, PT #### [address] Calcium [Mass/Vol] 9.0 mg/dL Normal 8.6-10.3 [facility] Comment on above: Performed By: #### C K, HS TROP, BNP, CBC, BHOB, LACTIC, PTT, CMP, PT #### [facility] [address] Chloride [Moles/Vol] 100 mmol/L Normal 98-107 [facility] Comment on above: Performed By: #### C K, HS TROP, BNP, CBC, BHOB, LACTIC, PTT, CMP, PT #### [address] CO2 [Moles/Vol] 24.0 mmol/L Normal 21.0-31.0 [facility] Comment on above: Performed By: #### C K, HS TROP, BNP, CBC, BHOB, LACTIC, PTT, CMP, PT #### [address] Creatinine [Mass/Vol] 0.81 mg/dL Normal 0.70-1.30 [facility] Comment on above: Performed By: #### C K, HS TROP, BNP, CBC, BHOB, LACTIC, PTT, CMP, PT #### [address] Creatinine Clr Calc Pharmacy 139.84 Normal [facility] Comment on above: Performed By: #### C K, HS TROP, BNP, CBC, BHOB, LACTIC, PTT, CMP, PT #### [address] GFR/1.73 sq M.predicted MDRD (S/P/Bld) [Vol rate/Area] mL/min/{1.73_m2} Normal [facility] Comment on above: Performed By: #### C K, HS TROP, BNP, CBC, BHOB, LACTIC, PTT, CMP, PT #### [address] Globulin (S) [Mass/Vol] 3.2 g/dL Normal [facility] Comment on above: Performed By: #### C K, HS TROP, BNP, CBC, BHOB, LACTIC, PTT, CMP, PT #### [address] Glucose [Mass/Vol] 431 mg/dL High 70-100 [facility] Comment on above: Result Comment: [place] Glucose Reference Range is dependent on time and content of last meal. Glucose of more than 200 mg/dL in a nonstressed, ambulatory subject supports the diagnosis of Diabetes Mellitus. ADA recommended reference range Performed By: #### C K, HS TROP, BNP, CBC, BHOB, LACTIC, PTT, CMP, PT #### [address] Potassium [Moles/Vol] 3.8 mmol/L Normal 3.5-5.1 [facility] Comment on above: Performed By: #### C K, HS TROP, BNP, CBC, BHOB, LACTIC, PTT, CMP, PT #### [address] Protein [Mass/Vol] 6.8 g/dL Normal 6.4-8.9 [facility] Comment on above: Performed By: #### C K, HS TROP, BNP, CBC, BHOB, LACTIC, PTT, CMP, PT #### [place] [address] [place] Sodium [Moles/Vol] 133 mmol/L Low 136-145 [facility] Comment on above: Performed By: #### C K, HS TROP, BNP, CBC, BHOB, LACTIC, PTT, CMP, PT #### [place] [address] [place] Urea nitrogen [Mass/Vol] 11 mg/dL Normal 7-25 [facility] Comment on above: Performed By: #### C K, HS TROP, BNP, CBC, BHOB, LACTIC, PTT, CMP, PT #### [place] [id number] [place] Creatine Kinaseon 08-08-2024 CK [Catalytic activity/Vol] 42 U/L Normal 30-223 [facility] Comment on above: Performed By: #### C K, HS TROP, BNP, CBC, BHOB, LACTIC, PTT, CMP, PT #### [place] [address] [place] Creatine kinase [Enzymatic a ctivity/volume] in Serum or PlasmaOrdered By: Senia Fernandez on 08-08-2024 CK [Catalytic activity/Vol] Creatine kinase [Enzymatic activity/volume] in Serum or Plasma [address] [facility] Creatinine [Mass/volume] in Serum or PlasmaOrdered By: Senia Fernandez on 08-08-2024 Creatinine [Mass/Vol] Creatinine [Mass/v olume] in Serum or Plasma 0.70-1.30 [facility] Drug Screen,Urineon 08-08-19 25 Amphetamine Screen,Urine Negative Normal Negative [facility] Comment on above: Performed By: #### C K, HS TROP, BNP, CBC, BHOB, LACTIC, PTT, CMP, PT #### [address] Barbiturate Screen,Urine Negative Normal Negative [facility] Comment on above: Performed By: #### C K, HS TROP, BNP, CBC, BHOB, LACTIC, PTT, CMP, PT #### [address] Benzodiazepines Screen,Urine Negative Normal Negative [facility] Comment on above: Performed By: #### C K, HS TROP, BNP, CBC, BHOB, LACTIC, PTT, CMP, PT #### [address] Cannabinoid Screen,Urine Negative Normal Negative [facility] Comment on above: Result Comment: Thes e are unconfirmed results and should not be used for legal purposes. Drug Cut-Off Concentration: AMPH 1000 ng/mL KG 200 ng/mL JOHNSON 200 ng/mL COCM 300 ng/mL OP 300 ng/mL PCP 25 ng/mL THC 20 ng/mL PERFORMED BY: [place] [address] PATHOLOGIST SAWYER CORK SLABS GREYSON TORRES M.D. Performed By: #### C K, HS TROP, BNP, CBC, BHOB, LACTIC, PTT, CMP, PT #### [address] Cocaine Screen,Urine Negative Normal Negative [facility] Comment on above: Performed By: #### C K, HS TROP, BNP, CBC, BHOB, LACTIC, PTT, CMP, PT #### [facility] [address] Opiate Screen,Urine Positive High Negative [facility] Comment on above: Performed By: #### C K, HS TROP, BNP, CBC, BHOB, LACTIC, PTT, CMP, PT #### [facility] [address] Phencyclidine Screen,Urine Negative Normal Negative [facility] Comment on above: Performed By: #### C K, HS TROP, BNP, CBC, BHOB, LACTIC, PTT, CMP, PT #### [facility] [address] [place] [id number] [facility] ECG 12 lead ECGon 08-08-2024 ECG 12 lead ECG [facility] [address] [place] [address] [place] [address] Electrocardiograph Report Signed Patient: Isaias Estrella MR#: [id number] 73 : 2000 Acct:[id number] Age/Sex: 23 / M ADM Date: 08/08/24 Loc: ER Room: Type: [facility] ER Attending Dr: Ordering Provider: Senia Fernandez PA-C Date of Service: 08/08/24 ECG/ECG 12 lead ECG: Extremity Injury, Lower Cop[place] to: Test Reason : Blood Pressure : */* mmHG Vent. Rate : 114 BPM Atrial Rate : 114 BPM P-R Int : 166 ms QRS Dur : 88 ms QT Int : 330 ms P-R-T Axes : 70 68 54 degrees QTcB Int : 454 ms Sinus tachycardia Confirmed by Isaias Conley DO ([id number]) on 08/09/2024 7:15:49 AM Referred By: Electronically Signed By: Isaias Conley DO Transcribed By: [facility] Signed By Isaias Conley DO 0715 Normal [facility] Eosinophils Auto (Bld) [#/Vo l]Ordered By: Senia Fernandez on 08-08-2024 Eosinophils (Bld) [#/Vol] Automated eosinophil count 0.0-0.45 [facility] Eosinophils/100 WBC Auto (Bl d)Ordered By: Senia Fernandez on 08-08-2024 Eosinophils/100 WBC (Bld) Automated eosinophil % . [facility] Erythrocyte distribution wid th Auto (RBC) [Ratio]Ordered By: Senia Fernandez on 08-08-2024 Erythrocyte distribution width (RBC) [Ratio] Erythrocyte distribution width [Ratio] by Automated count 12.0-14.8 [facility] Globulin Calc (S) [Mass/Vol] Ordered By: Senia Fernandez on 08-08-2024 Globulin (S) [Mass/Vol] Serum globulin measurement by calculation (mass/volume) [facility] Glucose Glucometer (BldC) [M ass/Vol]Ordered By: Senia Fernandez on 08-08-2024 Glucose [Mass/Vol] Capillary blood gluc ose measurement by glucometer (mass/volume) [facility] Comment on above: Random Glucose Refer ence Range is dependent on time and content of last meal. Glucose of more than 200 mg/dL in a nonstressed, ambulatory subject supports the diagnosis of Diabetes Mellitus. Glucose Poct Glucometerson 0 08-08-2024 Commemt1 Glu2: Cleaned Meter Normal [facility] Comment on above: Performed By: #### C K, HS TROP, BNP, CBC, BHOB, LACTIC, PTT, CMP, PT #### [facility] [address] Commemt2 WILL NOTIFY DR/ROMAN Normal [facility] Comment on above: Result Comment: PERF ORMED BY: [place] [address] PATHOLOGIST SAWYER CORK SLABS GREYSON TORRES M.D. Performed By: #### C K, HS TROP, BNP, CBC, BHOB, LACTIC, PTT, CMP, PT #### [facility] [address] Glucose [Mass/Vol] 317 mg/dL Normal [facility] Comment on above: Result Comment: [place] Glucose Reference Range is dependent on time and content of last meal. Glucose of more than 200 mg/dL in a nonstressed, ambulatory subject supports the diagnosis of Diabetes Mellitus. Performed By: #### C K, HS TROP, BNP, CBC, BHOB, LACTIC, PTT, CMP, PT #### [facility] [address] Glucose [Mass/volume] in Ser um or PlasmaOrdered By: Senia Fernandez on 08-08-2024 Glucose [Mass/Vol] Glucose [Mass/volume ] in Serum or Plasma High 70-100 [facility] Comment on above: ADA recommended refe rence rangeRandom Glucose Reference Range is dependent on time and content of last meal. Glucose of more than 200 mg/dL in a nonstressed, ambulatory subject supports the diagnosis of Diabetes Mellitus. Glucose [Mass/volume] in Uri ne by Test stripOrdered By: Senia Fernandez on 08-08-2024 Glucose Test strip (U) [Mass/Vol] Glucose [Mass/volume] in Urine by Test strip High Normal [facility] Hematocrit Auto (Bld) [Volum e fraction]Ordered By: Senia Fernandez on 08-08-2024 Hematocrit (Bld) [Volume fraction] Hematocrit [Volume Fraction] of Blood by Automated count 38.8-50.0 [facility] Hemoglobin Test strip Ql (U) Ordered By: Senia Fernandez on 08-08-2024 Hemoglobin Ql (U) Hemoglobin [Presence ] in Urine by Test strip Negative [facility] Hemoglobin [Mass/volume] in BloodOrdered By: Senia Fernandez 08-08-2024 Hemoglobin (Bld) [Mass/Vol] Hemoglobin [Mass/volume] in Blood 13.0-17.0 [facility] INR in Platelet poor plasma by Coagulation assayOrdered By: Senia Fernandez 08-08-2024 INR Coag (PPP) [Relative time] INR in Platelet poor plasma by Coagulation assay [facility] Comment on above: INR Therapeutic Rang e A) Pre- and Peroperative OAT started two weeks before surgery. NOT HIP SURGERY: 1.5 - 2.5 HIP SURGERY: 2 - 3B) Primary and secondary prevention of venous THROMBOSIS: 2 - 3C) Active venous thrombosis, pulmonary embolismand prevention of recurrent venous thrombosis: 2 - 3D) Prevention of arterial thromboembolismincluding patients with mechanical heart valves: 3 - 4.5 Ketones Test strip Ql (U)Ord ered By: Senia Fernandez on 08-08-2024 Ketones Ql (U) Ketones [Presence] i n Urine by Test strip High Negative [facility] Lactate [Moles/volume] in Se rum or PlasmaOrdered By: Senia Fernandez on 08-08-2024 Lactate [Moles/Vol] Lactate [Moles/volum e] in Serum or Plasma 0.5-1.9 [facility] Comment on above: Lactic Acid referenc e range has been updated to 0.5 1.9 mmol/L and the critical range of 2.0 or greater. Lactic Acidon 08-08-2024 Lactate [Moles/Vol] 0.6 mmol/L Normal 0.5-1.9 [facility] Comment on above: Result Comment: Lact ic Acid reference range has been updated to 0.5 ? 1.9 mmol/L and the critical range of 2.0 or greater. PERFORMED BY: [place] [address] PATHOLOGIST SAWYER CORK SLABS GREYSON TORRES M.D. Performed By: #### C K, HS TROP, BNP, CBC, BHOB, LACTIC, PTT, CMP, PT #### [facility] [address] [place] [address] Leukocyte esterase [Presence ] in Urine by Test stripOrdered By: Senia Fernandez on 08-08-2024 Leukocyte esterase Test strip Ql (U) Leukocyte esterase [Presence] in Urine by Test strip Negative [facility] Leukocytes [#/volume] correc shaji for nucleated erythrocytes in Blood by Automated counOrdered By: Senia Fernandez on 08-08-2024 WBC corrected for nucl RBC Auto (Bld) [#/Vol] Leukocytes [#/volume] corrected for nucleated erythrocytes in Blood by Automated coun 4.1-10.5 [facility] Lymphocytes Auto (Bld) [#/Vo l]Ordered By: Senia Fernandez on 08-08-2024 Lymphocytes (Bld) [#/Vol] Lymphocytes [#/volume] in Blood by Automated count 1.00-4.8 [facility] Lymphocytes/100 WBC Auto (Bl d)Ordered By: Senia Fernandez on 08-08-2024 Lymphocytes/100 WBC (Bld) Lymphocytes/100 leukocytes in Blood by Automated count . [facility] MCH Auto (RBC) [Entitic mass ]Ordered By: Senia Fernandez on 08-08-2024 MCH (RBC) [Entitic mass] MCH [Entitic mass] by Automated count 27.5-35.2 [facility] MCHC Auto (RBC) [Mass/Vol]Or dered By: Senia Fernandez on 08-08-2024 MCHC (RBC) [Mass/Vol] MCHC [Mass/volume] by Automated count 32.5-35.6 [facility] MCV Auto (RBC) [Entitic vol] Ordered By: Senia Fernandez on 08-08-2024 MCV (RBC) [Entitic vol] MCV [Entitic volume] by Automated count 83.5-101 [facility] Monocyte distribution width [Entitic volume] in Blood by AutomatedOrdered By: Senia Fernandez on 08-08-2024 Monocyte distribution width Auto (Bld) [Entitic vol] Monocyte distribution width [Entitic volume] in Blood by Automated 0.00-20.00 [facility] Monocytes Auto (Bld) [#/Vol] Ordered By: Senia Fernandez on 08-08-2024 Monocytes (Bld) [#/Vol] Automated blood monocyte count High 0.0-0.8 [facility] Monocytes/100 WBC Auto (Bld) Ordered By: Senia Fernandez on 08-08-2024 Monocytes/100 WBC (Bld) Automated monocyte % . [facility] Natriuretic peptide B [Mass/ Vol]Ordered By: Senia Fernandez on 08-08-2024 Natriuretic peptide B (Bld) [Mass/Vol] BNP ser/plas 5-100 [facility] Neutrophils Auto (Bld) [#/Vo l]Ordered By: Senia Fernandez on 08-08-2024 Neutrophils (Bld) [#/Vol] Neutrophils [#/volume] in Blood by Automated count 1.8-7.7 [facility] Neutrophils/100 WBC Auto (Bl d)Ordered By: Senia Fernandez on 08-08-2024 Neutrophils/100 WBC (Bld) Automated neutrophil % . [facility] Nitrite Test strip Ql (U)Ord ered By: Senia Fernandez on 08-08-2024 Nitrite Ql (U) Nitrite [Presence] i n Urine by Test strip Negative [facility] No Panel InformationOrdered By: Senia Fernandez on 08-08-2024 Bedside Glucose #[address]/rn [facility] Bedside Glucose Comment Glu2: cleaned meter [facility] Arterial Blood Base Excess -3.0 mmol/L -3.0-3.0 [facility] Arterial Blood Oxygen Content 8.3 mmol/L 6.6-9.7 [facility] Arterial Blood Oxygen Saturation 97.4 % 95.0-100.0 [facility] Arterial Blood Partial Pressure CO2 33.3 mm[Hg] Low 35.0-45.0 [facility] Arterial Blood Partial Pressure O2 86.9 mm[Hg] 80.0-100.0 [facility] Arterial Blood pH 7.41 7.35-7.45 [facility] Blood Gas Critical Value See comment [facility] Comment on above: Critical Value thomas d on: 08/08/2024 at 21:16 Blood Gas Sample Site Right radial F [facility] FiO2 21 % [facility] Estimated GFR (CKD-EPI) > 60.0 mL/Min [facility] Creatinine Clearance (Chem 139.84 [facility] Nucleated erythrocytes [Pres ence] in Blood by Automated countOrdered By: Senia Fernandez on 08-08-2024 Nucleated RBC Auto Ql (Bld) Nucleated erythrocytes [Presence] in Blood by Automated count 0-0.5 [facility] Opiates [Presence] in Urine by Screen methodOrdered By: Senia Fernandez on 08-08-2024 Opiates Screen Ql (U) Opiates [Presence] in Urine by Screen method High Negative [facility] Partial Thromboplastin Timeo n 08-08-2024 aPTT Coag (Bld) [Time] 28.4 s Normal 25.1-36.5 [facility] Comment on above: Result Comment: A he matocrit value greater than 55% may lead to inaccurate results in coagulation testing. Patients having hematocrit values >55% require a special collection tube for coagulation studies. Please contact the laboratory at [phone] for redraw instructions. PERFORMED BY: [facility] [address] [place] [address] PATHOLOGIST SAWYER CORK SLABS GREYSON TORRES M.D. Performed By: #### C K, HS TROP, BNP, CBC, BHOB, LACTIC, PTT, CMP, PT #### [facility] [address] Phencyclidine Screen Ql (U)O rdered By: Senia Fernandez on 08-08-2024 Phencyclidine Ql (U) Phencyclidine [Pres ence] in Urine by Screen method Negative [facility] Platelet mean volume Auto (B ld) [Entitic vol]Ordered By: Senia Fernandez on 08-08-2024 Platelet mean volume (Bld) [Entitic vol] Platelet mean volume [Entitic volume] in Blood by Automated count 6.6-10.1 [facility] Platelets Auto (Bld) [#/Vol] Ordered By: Senia Fernandez on 08-08-2024 Platelets (Bld) [#/Vol] Platelets [#/volume] in Blood by Automated count 150-450 [facility] Potassium [Moles/volume] in Serum or PlasmaOrdered By: Senia Fernandez on 08-08-2024 Potassium [Moles/Vol] Potassium [Moles/v olume] in Serum or Plasma 3.5-5.1 [facility] Protein Test strip (U) [Mass /Vol]Ordered By: Senia Fernandez on 08-08-2024 Protein (U) [Mass/Vol] Protein [Mass/vol ume] in Urine by Test strip Negative [facility] Protein [Mass/volume] in Ser um or PlasmaOrdered By: Senia Fernandez on 08-08-2024 Protein [Mass/Vol] Protein [Mass/volume ] in Serum or Plasma 6.4-8.9 [facility] Prothrombin Time INRon 08-08 INR Coag (PPP) [Relative time] 0.9 {INR} Normal [facility] Comment on above: Result Comment: INR Therapeutic Range A) Pre- and Peroperative OAT started two weeks before surgery. NOT HIP SURGERY: 1.5 - 2.5 HIP SURGERY: 2 - 3 B) Primary and secondary prevention of venous THROMBOSIS: 2 - 3 C) Active venous thrombosis, pulmonary embolism and prevention of recurrent venous thrombosis: 2 - 3 D) Prevention of arterial thromboembolism including patients with mechanical heart valves: 3 - 4.5 Performed By: #### C K, HS TROP, BNP, CBC, BHOB, LACTIC, PTT, CMP, PT #### [facility] [address] [place] [address] [facility] PT Coag (PPP) [Time] 10.2 s Normal 9.0-12.9 [facility] Comment on above: Result Comment: A he matocrit value greater than 55% may lead to inaccurate results in coagulation testing. Patients having hematocrit values >55% require a special collection tube for coagulation studies. Please contact the laboratory at [phone] for redraw instructions. Performed By: #### C K, HS TROP, BNP, CBC, BHOB, LACTIC, PTT, CMP, PT #### [facility] [address] [place] [address] [facility] Prothrombin time (PT)Ordered By: Senia Fernandez on 08-08-2024 PT Coag (PPP) [Time] Prothrombin time (PT) 9.0- 12.9 [facility] Comment on above: A hematocrit value g reater than 55% may lead to inaccurate results in coagulation testing. Patients having hematocrit values >55% require a special collection tube for coagulation studies. Please contact the laboratory at [phone] for redraw instructions. RBC Auto (Bld) [#/Vol]Ordere d By: Senia Fernandez on 08-08-2024 RBC (Bld) [#/Vol] Erythrocytes [#/volu me] in Blood by Automated count 3.90-5.60 [facility] Serum or plasma albumin/glob ulin mass ratioOrdered By: Senia Fernandez on 08-08-2024 Albumin/Globulin [Mass ratio] Serum or plasma albumin/globulin mass ratio [facility] Serum or plasma anion gap de terminationOrdered By: Senia Fernandez on 08-08-2024 Anion gap [Moles/Vol] Serum or plasma an ion gap determination 6.0-15.0 [facility] Sodium [Moles/volume] in Ser um or PlasmaOrdered By: Senia Fernandez on 08-08-2024 Sodium [Moles/Vol] Sodium [Moles/volume ] in Serum or Plasma Low 136-145 [facility] Specific gravity Test strip (U) [Rel density]Ordered By: Senia Fernandez on 08-08-2024 Specific gravity (U) [Rel density] Specific gravity of Urine by Test strip High 1.001-1.03 0 [facility] Troponin I High Sensitivityo n 08-08-2024 Troponin I High Sensitivity 8 Normal 0-20 [facility] Comment on above: Result Comment: The Troponin units of report have been changed to meet the Chest Pain Accreditation requirement, element EC5.M1l2. Troponin units are changed from pg/ml to ng/L. Also, the decimal is removed and results are in whole numbers. PERFORMED BY: [place] [address] PATHOLOGIST SAWYER CORK SLABS GREYSON TORRES M.D. Performed By: #### C K, HS TROP, BNP, CBC, BHOB, LACTIC, PTT, CMP, PT #### [facility] [address] [place] [address] Troponin I.cardiac [Mass/vol ume] in Serum or Plasma by Detection limit <= 0.01 ng/Ordered By: Senia Fernandez on 08-08-2024 Troponin I.cardiac DL <= 0.01 ng/mL [Mass/Vol] Troponin I.cardiac [Mass/volume] in Serum or Plasma by Detection limit <= 0.01 ng/ 0-20 [facility] Comment on above: The Troponin units o f report have been changed to meet the Chest Pain Accreditation requirement, element EC5.M1l2. Troponin units are changed from pg/ml to ng/L. Also, the decimal is removed and results are in whole numbers. Urea nitrogen [Mass/volume] in Serum or PlasmaOrdered By: Senia Fernandez on 08-08-2024 Urea nitrogen [Mass/Vol] Urea nitrogen [Mass/volume] in Serum or Plasma 7 [facility] Urinalysison 08-08-2024 Appearance (U) Clear Normal Clear [facility] Comment on above: Order Comment: Name Collection Type:: Clean-Voided Midstream Performed By: #### C K, HS TROP, BNP, CBC, BHOB, LACTIC, PTT, CMP, PT #### [facility] [address] [place] [address] [place] Bilirubin,Urine Negative Normal Negative [facility] Comment on above: Order Comment: Name Collection Type:: Clean-Voided Midstream Performed By: #### C K, HS TROP, BNP, CBC, BHOB, LACTIC, PTT, CMP, PT #### [facility] [address] [place] [id number] [place] Color (U) Colorless Normal Yellow [facility] Comment on above: Order Comment: Name Collection Type:: Clean-Voided Midstream Performed By: #### C K, HS TROP, BNP, CBC, BHOB, LACTIC, PTT, CMP, PT #### [facility] [address] [place] [address] [place] Glucose Ql (U) >= High Normal [facility] Comment on above: Order Comment: Name Collection Type:: Clean-Voided Midstream Performed By: #### C K, HS TROP, BNP, CBC, BHOB, LACTIC, PTT, CMP, PT #### [facility] [address] [place] [address] [place] Ketones Ql (U) 2+ High Negative [facility] Comment on above: Order Comment: Name Collection Type:: Clean-Voided Midstream Performed By: #### C K, HS TROP, BNP, CBC, BHOB, LACTIC, PTT, CMP, PT #### [facility] [address] [place] [id number] [place] Leukocyte esterase Test strip Ql (U) Negative Normal Negative [facility] Comment on above: Order Comment: Name Collection Type:: Clean-Voided Midstream Performed By: #### C K, HS TROP, BNP, CBC, BHOB, LACTIC, PTT, CMP, PT #### [facility] [address] [place] [address] [place] Nitrite,Urine Negative Normal Negative [facility] Comment on above: Order Comment: Name Collection Type:: Clean-Voided Midstream Performed By: #### C K, HS TROP, BNP, CBC, BHOB, LACTIC, PTT, CMP, PT #### [facility] [address] [place] [address] [place] Occult Blood,Urine Negative Normal Negative [facility] Comment on above: Order Comment: Name Collection Type:: Clean-Voided Midstream Result Comment: PERF ORMED BY: [place] [address] PATHOLOGIST SAWYER CORK SLABS GREYSON TORRES M.D. Performed By: #### C K, HS TROP, BNP, CBC, BHOB, LACTIC, PTT, CMP, PT #### [address] pH (U) 6.5 [pH] Normal 5.0-9.0 [facility] Comment on above: Order Comment: Name Collection Type:: Clean-Voided Midstream Performed By: #### C K, HS TROP, BNP, CBC, BHOB, LACTIC, PTT, CMP, PT #### [address] Protein,Urine Negative Normal Negative [facility] Comment on above: Order Comment: Name Collection Type:: Clean-Voided Midstream Performed By: #### C K, HS TROP, BNP, CBC, BHOB, LACTIC, PTT, CMP, PT #### [address] Specificy [place],Urine 1.037 High 1.001-1.03 0 [facility] Comment on above: Order Comment: Name Collection Type:: Clean-Voided Midstream Performed By: #### C K, HS TROP, BNP, CBC, BHOB, LACTIC, PTT, CMP, PT #### [address] Urobilinogen,Urine Normal Normal Normal [facility] Comment on above: Order Comment: Name Collection Type:: Clean-Voided Midstream Performed By: #### C K, HS TROP, BNP, CBC, BHOB, LACTIC, PTT, CMP, PT #### [address] Urobilinogen Test strip (U) [Mass/Vol]Ordered By: Senia Fernandez on 08-08-2024 Urobilinogen (U) [Mass/Vol] Urobilinogen [Mass/volume] in Urine by Test strip Normal [facility] WBC Auto (Bld) [#/Vol]Ordere d By: Senia Fernandez on 08-08-2024 WBC (Bld) [#/Vol] Leukocytes [#/volume ] in Blood by Automated count 4.1-10.5 [facility] aPTT in Platelet poor plasma by Coagulation assayOrdered By: Senia Fernandez on 08-08-2024 aPTT Coag (PPP) [Time] Activated partial thromboplastin time (aPTT) in platelet poor plasma by coagulation a 25.1-36.5 [facility] Comment on above: A hematocrit value g reater than 55% may lead to inaccurate results in coagulation testing. Patients having hematocrit values >55% require a special collection tube for coagulation studies. Please contact the laboratory at [phone] for redraw instructions. pH Test strip (U)Ordered By: Senia Fernandez on 08-08-2024 pH (U) pH of Urine by Test strip 5.0-9.0 [facility] Basic metabolic 2000 panelon 08-05-2024 Anion gap [Moles/Vol] 12 mmol/L 10 - 2 0 mmol/L [facility] Calcium [Mass/Vol] 8.5 mg/dL Low 8.6 - 10. 3 mg/dL [facility] Chloride [Moles/Vol] 100 mmol/L 98 - 10 7 mmol/L [facility] CO2 [Moles/Vol] 27 mmol/L 21 - 32 mmol/L [facility] Creatinine [Mass/Vol] 0.51 mg/dL 0.50 - 1.30 mg/dL [facility] eGFR - PINF [facility] Comment on above: Calculations of deondre mated GFR are performed using the 2020 CKD-EPI Study Refit equation without the race variable for the IDMS-Traceable creatinine methods. https://jasn.asnjournals.org/content//ASN.81633 17760 Glucose [Mass/Vol] 200 mg/dL High 74 - 99 mg/dL [facility] Interpretation and review of laboratory results Abnormal [facility] Potassium [Moles/Vol] 3 mmol/L Low 3.5 - 5.3 mmol/L [facility] Sodium [Moles/Vol] 136 mmol/L 136 - 145 mmol/L [facility] Urea nitrogen [Mass/Vol] 9 mg/dL 6 - 23 mg/dL [facility] Anion gap [Moles/Vol] 12 mmol/L Normal 10-20 [facility] Comment on above: Performed By: #### 5 7021-8 #### TRISH Chirinos ([id number]) [facility] ([facility]) [address] [place] [address]226 Calcium [Mass/Vol] 8.5 mg/dL Low 8.6-10.3 [facility] Comment on above: Performed By: #### 5 7021-8 #### TRISH Chirinos ([id number]) [facility] ([facility]) [address] [place] [address] 15125 Chloride [Moles/Vol] 100 mmol/L Normal 98-107 [facility] Comment on above: Performed By: #### 5 7021-8 #### TRISH Chirinos ([id number]) [facility] ([facility]) [address] [place] [address] 66119 CO2 [Moles/Vol] 27 mmol/L Normal 21-32 [facility] Comment on above: Performed By: #### 5 7021-8 #### TRISH Chirinos ([id number]) [facility] ([facility]) [address] [place] [address] 74540 Creatinine [Mass/Vol] 0.51 mg/dL Normal 0.50-1.30 [facility] Comment on above: Performed By: #### 5 7021-8 #### TRISH Chirinos ([id number]) [facility] ([facility]) [address] [place] [address] 75377 GFR/1.73 sq M.predicted MDRD (S/P/Bld) [Vol rate/Area] mL/min/{1.73_m2} Normal >60 [facility] Comment on above: Result Comment: Calc ulations of estimated GFR are performed using the 2020 CKD-EPI Study Refit equation without the race variable for the IDMS-Traceable creatinine methods. https://jasn.asnjournals.org/content//ASN.73469 02683 Performed By: #### 5 7021-8 #### TRISH Chirinos ([id number]) [facility] ([facility]) [address] [place] [address] 06394 Glucose [Mass/Vol] 200 mg/dL High 74-99 [facility] Comment on above: Performed By: #### 5 7021-8 #### TRISH Chirinos ([id number]) [facility] ([facility]) [address] [place] [address] 71148 Potassium [Moles/Vol] 3.0 mmol/L Low 3.5-5.3 [facility] Comment on above: Performed By: #### 5 7021-8 #### TRISH Chirinos ([id number]) [facility] ([facility]) [address] [place] [address] 90310 Sodium [Moles/Vol] 136 mmol/L Normal 136-145 [facility] Comment on above: Performed By: #### 5 7021-8 #### TRISH Chirinos ([id number]) [facility] ([facility]) [address] [place] [address] 91899 Urea nitrogen [Mass/Vol] 9 mg/dL Normal 6-23 [facility] Comment on above: Performed By: #### 5 7021-8 #### TRISH Chirinos ([id number]) [facility] ([facility]) [address] [place] [address] 04391 CBC W Auto Differential pane l (Bld)on 08-05-2024 Basophils (Bld) [#/Vol] 0.03 10*3/uL [facility] Basophils/100 WBC (Bld) 0.4 % 0.0 - 2.0 % [facility] Eosinophils (Bld) [#/Vol] 0.07 10*3/uL [facility] Eosinophils/100 WBC (Bld) 0.9 % 0.0 - 6.0 % [facility] Erythrocyte distribution width (RBC) [Ratio] 11.5 % 11.5 - 14.5 % [facility] Hematocrit (Bld) [Volume fraction] 35.1 % Low 41.0 - 52.0 % [facility] Hemoglobin (Bld) [Mass/Vol] 12.3 g/dL Low 13.5 - 17.5 g/dL [facility] Immature granulocytes (Bld) [#/Vol] 0.03 10*3/uL [facility] Immature granulocytes/100 WBC (Bld) 0.4 % 0.0 - 0.9 % [facility] Comment on above: Immature Granulocyte Count (IG) includes promyelocytes, myelocytes and metamyelocytes but does not include bands. Percent differential counts (%) should be interpreted in the context of the absolute cell counts (cells/UL). Interpretation and review of laboratory results Abnormal [facility] Lymphocytes (Bld) [#/Vol] 1.09 10*3/uL Low [facility] Lymphocytes/100 WBC (Bld) 14.1 % 13.0 - 44.0 % [facility] MCH (RBC) [Entitic mass] 33.8 pg 26.0 - 34.0 pg [facility] MCHC (RBC) [Mass/Vol] 35 g/dL 32.0 - 36.0 g/dL [facility] MCV (RBC) [Entitic vol] 96 fL 80 - 100 fL [facility] Monocytes (Bld) [#/Vol] 0.94 10*3/uL [facility] Monocytes/100 WBC (Bld) 12.1 % 2.0 - 10.0 % [facility] Neutrophils (Bld) [#/Vol] 5.59 10*3/uL [facility] Comment on above: Percent differential counts (%) should be interpreted in the context of the absolute cell counts (cells/uL). Neutrophils/100 WBC (Bld) 72.1 % 40.0 - 80.0 % [facility] Nucleated RBC/100 WBC (Bld) [Ratio] 0 % [facility] Platelets (Bld) [#/Vol] 154 10*3/uL [facility] RBC (Bld) [#/Vol] 3.64 10*6/uL [facility] WBC (Bld) [#/Vol] 7.8 10*3/uL [facility] Basophils (Bld) [#/Vol] 0.03 x10*3/uL Normal 0.00-0.10 [facility] Comment on above: Performed By: #### 5 7021-8 #### TRISH Chirinos ([id number]) [facility] ([facility]) [address] [place] [address] 38596 Basophils/100 WBC (Bld) 0.4 % Normal 0.0-2.0 [facility] Comment on above: Performed By: #### 5 70-8 #### TRISH Chirinos ([id number]) [facility] ([facility]) [address] [place] [address] Eosinophils (Bld) [#/Vol] 0.07 x10*3/uL Normal 0.00-0.70 [facility] Comment on above: Performed By: #### 5 7021-8 #### TRISH Chirinos ([id number]) [facility] ([facility]) [address] [place] [address] 95379 Eosinophils/100 WBC (Bld) 0.9 % Normal 0.0-6.0 [facility] Comment on above: Performed By: #### 5 7021-8 #### TRISH Chirinos ([id number]) [facility] ([facility]) [address] [place] [address] 27414 Erythrocyte distribution width (RBC) [Ratio] 11.5 % Normal 11.5-14.5 [facility] Comment on above: Performed By: #### 7021-8 #### TRISH Chirinos ([id number]) [facility] ([facility]) [address] [place] [address] 69881 Hematocrit (Bld) [Volume fraction] 35.1 % Low 41.0-52.0 [facility] Comment on above: Performed By: #### 5 7021-8 #### TRISH Chirinos ([id number]) [facility] ([facility]) [address] [place] [address] 36131 Hemoglobin (Bld) [Mass/Vol] 12.3 g/dL Low 13.5-17.5 [facility] Comment on above: Performed By: #### 5 7021-8 #### TRISH Chirinos ([id number]) [facility] ([facility]) [address] [place] [address] 04610 Immature granulocytes (Bld) [#/Vol] 0.03 x10*3/uL Normal 0.00-0.70 [facility] Comment on above: Performed By: #### 5 7021-8 #### TRISH Chirinos ([id number]) [facility] ([facility]) [address] [place] [address] Immature granulocytes/100 WBC (Bld) 0.4 % Normal 0.0-0.9 [facility] Comment on above: Result Comment: Tamika ture Granulocyte Count (IG) includes promyelocytes, myelocytes and metamyelocytes but does not include bands. Percent differential counts (%) should be interpreted in the context of the absolute cell counts (cells/UL). Performed By: #### 5 7021-8 #### TRISH Chirinos ([id number]) [facility] ([facility]) [address] [place] [address] Lymphocytes (Bld) [#/Vol] 1.09 x10*3/uL Low 1.20-4.80 [facility] Comment on above: Performed By: #### 5 7021-8 #### TRISH Chirinos ([id number]) [facility] ([facility]) [address] [place] [address] 38626 Lymphocytes/100 WBC (Bld) 14.1 % Normal 13.0-44.0 [facility] Comment on above: Performed By: #### 5 7021-8 #### TRISH Chirinos ([id number]) [facility] ([facility]) [address] [place] [address] 56568 MCH (RBC) [Entitic mass] 33.8 pg Normal 26.0-34.0 [facility] Comment on above: Performed By: #### 5 7021-8 #### TRISH Chirinos ([id number]) [facility] ([facility]) [address] [place] [address] 57482 MCHC (RBC) [Mass/Vol] 35.0 g/dL Normal 32.0-36.0 [facility] Comment on above: Performed By: #### 5 7021-8 #### TRISH Chirinos ([id number]) [facility] ([facility]) [address] [place] [address] 34320 MCV (RBC) [Entitic vol] 96 fL Normal 80-100 [facility] Comment on above: Performed By: #### 5 7021-8 #### TRISH Chirinos ([id number]) [facility] ([facility]) [address] [place] [address] Monocytes (Bld) [#/Vol] 0.94 x10*3/uL Normal 0.10-1.00 [facility] Comment on above: Performed By: #### 5 7021-8 #### TRISH Chirinos ([id number]) [facility] ([facility]) [address] [place] [address] 33907 Monocytes/100 WBC (Bld) 12.1 % Normal 2.0-10.0 [facility] Comment on above: Performed By: #### 5 7021-8 #### TRISH Chirinos ([id number]) [facility] ([facility]) [address] [place] [address] 91846 Neutrophils (Bld) [#/Vol] 5.59 x10*3/uL Normal 1.20-7.70 [facility] Comment on above: Result Comment: Perc ent differential counts (%) should be interpreted in the context of the absolute cell counts (cells/uL). Performed By: #### 5 7021-8 #### TRISH Chirinos ([id number]) [facility] ([facility]) [address] [place] [address] 82264 Neutrophils/100 WBC (Bld) 72.1 % Normal 40.0-80.0 [facility] Comment on above: Performed By: #### 5 7021-8 #### TRISH Chirinos ([id number]) [facility] ([facility]) [address] [place] [address] 92498 Nucleated RBC/100 WBC (Bld) [Ratio] 0.0 /100 WBCs Normal 0.0-0.0 [facility] Comment on above: Performed By: #### 5 7021-8 #### TRISH Chirinos ([id number]) [facility] ([facility]) [address] [place] [address] 52896 Platelets (Bld) [#/Vol] 154 x10*3/uL Normal 150-450 [facility] Comment on above: Performed By: #### 5 7021-8 #### TRISH Chirinos ([id number]) [facility] ([facility]) [address] [place] [address] 85868 RBC (Bld) [#/Vol] 3.64 x10*6/uL Low 4.50-5.90 [facility] Comment on above: Performed By: #### 5 7021-8 #### TRISH Chirinos ([id number]) [facility] ([facility]) [address] [place] [address] 30918 WBC (Bld) [#/Vol] 7.8 x10*3/uL Normal 4.4-11.3 [facility] Comment on above: Performed By: #### 5 7021-8 #### TRISH Chirinos ([id number]) [facility] ([facility]) [address] [place] [address] 29818 Glucose Test strip manual (B ld) [Mass/Vol]on 08-05-2024 Glucose [Mass/Vol] 187 mg/dL High 74 - 99 mg/dL [facility] Interpretation and review of laboratory results Abnormal [facility] Glucose [Mass/Vol] 187 mg/dL High 74-99 [facility] Comment on above: Performed By: #### 5 7021-8 #### TRISH Chirinos ([id number]) [facility] ([facility]) [address] [place] [address] 78061 Glucose [Mass/Vol] 232 mg/dL High 74 - 99 mg/dL [facility] Interpretation and review of laboratory results Abnormal [facility] Glucose [Mass/Vol] 232 mg/dL High 74-99 [facility] Comment on above: Performed By: #### 5 7021-8 #### TRISH Chirinos ([id number]) [facility] ([facility]) [address] [place] [address] 29815 Glucose [Mass/Vol] 175 mg/dL High 74 - 99 mg/dL [facility] Interpretation and review of laboratory results Abnormal [facility] Glucose [Mass/Vol] 175 mg/dL High 74-99 [facility] Comment on above: Performed By: #### 5 7021-8 #### TRISH Chirinos ([id number]) [facility] ([facility]) [address] [place] [address] [address] Basic metabolic 2000 panelon 08-04-2024 Anion gap [Moles/Vol] 13 mmol/L 10 - 2 0 mmol/L [facility] Calcium [Mass/Vol] 8.6 mg/dL 8.6 - 10. 3 mg/dL [facility] Chloride [Moles/Vol] 107 mmol/L 98 - 10 7 mmol/L [facility] CO2 [Moles/Vol] 17 mmol/L Low 21 - 32 mmol/L [facility] Creatinine [Mass/Vol] 0.65 mg/dL 0.50 - 1.30 mg/dL [facility] eGFR - PINF [facility] Comment on above: Calculations of deondre mated GFR are performed using the 2020 CKD-EPI Study Refit equation without the race variable for the IDMS-Traceable creatinine methods. https://jasn.asnjournals.org/content//ASN.35475 73021 Glucose [Mass/Vol] 263 mg/dL High 74 - 99 mg/dL [facility] Interpretation and review of laboratory results Abnormal [facility] Potassium [Moles/Vol] 3.7 mmol/L 3.5 - 5.3 mmol/L [facility] Sodium [Moles/Vol] 133 mmol/L Low 136 - 145 mmol/L [facility] Urea nitrogen [Mass/Vol] 8 mg/dL 6 - 23 mg/dL [facility] Anion gap [Moles/Vol] 13 mmol/L Normal 10-20 [facility] Comment on above: Performed By: #### 2 4321-2 ####TRISH Chirinos ([id number])[facility] ([facility])[address] [place] [address] Calcium [Mass/Vol] 8.6 mg/dL Normal 8.6-10.3 [facility] Comment on above: Performed By: #### 2 4321-2 ####TRISH Chirinos ([id number])[facility] ([facility])[address] [place] [address] Chloride [Moles/Vol] 107 mmol/L Normal 98-107 [facility] Comment on above: Performed By: #### 2 4321-2 ####TRISH Chirinos ([id number])[facility] ([facility])[address] [place] [address] CO2 [Moles/Vol] 17 mmol/L Low 21-32 [facility] Comment on above: Performed By: #### 2 4321-2 ####TRISH Chirinos ([id number])[facility] ([facility])[address] [place] [address] Creatinine [Mass/Vol] 0.65 mg/dL Normal 0.50-1.30 [facility] Comment on above: Performed By: #### 2 4321-2 ####TRISH Chirinos ([id number])[facility] ([facility])[address] [place] [address] GFR/1.73 sq M.predicted MDRD (S/P/Bld) [Vol rate/Area] mL/min/{1.73_m2} Normal >60 [facility] Comment on above: Result Comment: Calc ulations of estimated GFR are performed using the 2020 CKD-EPI Study Refit equation without the race variable for the IDMS-Traceable creatinine methods. https://jasn.asnjournals.org/content/early//ASN. 71138 Performed By: #### 2 4321-2 ####TRISH Chirinos ([id number])[facility] ([facility])[address] [place] [address] Glucose [Mass/Vol] 263 mg/dL High 74-99 [facility] Comment on above: Performed By: #### 2 4321-2 ####TRISH Chirinos ([id number])[facility] ([facility])[address] [place] [address] Potassium [Moles/Vol] 3.7 mmol/L Normal 3.5-5.3 [facility] Comment on above: Performed By: #### 2 4321-2 ####TRISH Chirinos ([id number])[facility] ([facility])[address] [place] [address] Sodium [Moles/Vol] 133 mmol/L Low 136-145 [facility] Comment on above: Performed By: #### 2 4321-2 ####TRISH Chirinos ([id number])[facility] ([facility])[address] [place] [address] Urea nitrogen [Mass/Vol] 8 mg/dL Normal 6-23 [facility] Comment on above: Performed By: #### 2 4321-2 ####TRISH Chirinos ([id number])[facility] ([facility])[address] [place] [address] CBC W Auto Differential pane l (Bld)on 08-04-2024 Basophils (Bld) [#/Vol] 0.02 10*3/uL [facility] Basophils/100 WBC (Bld) 0.2 % 0.0 - 2.0 % [facility] Eosinophils (Bld) [#/Vol] 0.05 10*3/uL [facility] Eosinophils/100 WBC (Bld) 0.6 % 0.0 - 6.0 % [facility] Erythrocyte distribution width (RBC) [Ratio] 11.9 % 11.5 - 14.5 % [facility] Hematocrit (Bld) [Volume fraction] 37.2 % Low 41.0 - 52.0 % [facility] Hemoglobin (Bld) [Mass/Vol] 13.2 g/dL Low 13.5 - 17.5 g/dL [facility] Immature granulocytes (Bld) [#/Vol] 0.04 10*3/uL [facility] Immature granulocytes/100 WBC (Bld) 0.5 % 0.0 - 0.9 % [facility] Comment on above: Immature Granulocyte Count (IG) includes promyelocytes, myelocytes and metamyelocytes but does not include bands. Percent differential counts (%) should be interpreted in the context of the absolute cell counts (cells/UL). Interpretation and review of laboratory results Abnormal [facility] Lymphocytes (Bld) [#/Vol] 0.71 10*3/uL Low [facility] Lymphocytes/100 WBC (Bld) 8.2 % 13.0 - 44.0 % [facility] MCH (RBC) [Entitic mass] 34 pg 26.0 - 34.0 pg [facility] MCHC (RBC) [Mass/Vol] 35.5 g/dL 32.0 - 36.0 g/dL [facility] MCV (RBC) [Entitic vol] 96 fL 80 - 100 fL [facility] Monocytes (Bld) [#/Vol] 1.22 10*3/uL High [facility] Monocytes/100 WBC (Bld) 14.2 % 2.0 - 10.0 % [facility] Neutrophils (Bld) [#/Vol] 6.57 10*3/uL [facility] Comment on above: Percent differential counts (%) should be interpreted in the context of the absolute cell counts (cells/uL). Neutrophils/100 WBC (Bld) 76.3 % 40.0 - 80.0 % [facility] Nucleated RBC/100 WBC (Bld) [Ratio] 0 % [facility] Platelets (Bld) [#/Vol] 153 10*3/uL [facility] RBC (Bld) [#/Vol] 3.88 10*6/uL Low [facility] WBC (Bld) [#/Vol] 8.6 10*3/uL [facility] Bas[facility] (Bld) [#/Vol] 0.02 x10*3/uL Normal 0.00-0.10 [facility] Comment on above: Performed By: #### 5 7021-8 ####TRISH Chirinos ([id number])[facility] ([facility])[address] [place] [address] Basophils/100 WBC (Bld) 0.2 % Normal 0.0-2.0 [facility] Comment on above: Performed By: #### 5 7021-8 ####TRISH Chirinos ([id number])[facility] ([facility])[address] [place] [address] Eosinophils (Bld) [#/Vol] 0.05 x10*3/uL Normal 0.00-0.70 [facility] Comment on above: Performed By: #### 5 7021-8 ####TRISH Chirinos ([id number])[facility] ([facility])[address] [place] [address] Eosinophils/100 WBC (Bld) 0.6 % Normal 0.0-6.0 [facility] Comment on above: Performed By: #### 5 7021-8 ####TRISH Chirinos ([id number])[facility] ([facility])[address] [place] [address] Erythrocyte distribution width (RBC) [Ratio] 11.9 % Normal 11.5-14.5 [facility] Comment on above: Performed By: #### 5 7021-8 ####TRISH Chirinos ([id number])[facility] ([facility])[address] [place] [address] Hematocrit (Bld) [Volume fraction] 37.2 % Low 41.0-52.0 [facility] Comment on above: Performed By: #### 5 7021-8 ####TRISH Chirinos ([id number])[facility] ([facility])[address] [place] [address] Hemoglobin (Bld) [Mass/Vol] 13.2 g/dL Low 13.5-17.5 [facility] Comment on above: Performed By: #### 5 7021-8 ####TRISH Chirinos ([id number])[facility] ([facility])[address] [place] [facility] [place] [address] Immature granulocytes (Bld) [#/Vol] 0.04 x10*3/uL Normal 0.00-0.70 [facility] Comment on above: Performed By: #### 5 7021-8 ####TRISH Chirinos ([id number])[facility] ([facility] [place] [address] Immature granulocytes/100 WBC (Bld) 0.5 % Normal 0.0-0.9 [facility] Comment on above: Result Comment: Tamika ture Granulocyte Count (IG) includes promyelocytes, myelocytes and metamyelocytes but does not include bands. Percent differential counts (%) should be interpreted in the context of the absolute cell counts (cells/UL). Performed By: #### 5 7021-8 ####TRISH Chirinos ([id number])[facility] ([facility] [place] [address] Lymphocytes (Bld) [#/Vol] 0.71 x10*3/uL Low 1.20-4.80 [facility] Comment on above: Performed By: #### 5 7021-8 ####TRISH Chirinos ([id number])[facility] ([facility] [place] [place] [address] Lymphocytes/100 WBC (Bld) 8.2 % Normal 13.0-44.0 [facility] Comment on above: Performed By: #### 5 7021-8 ####TRISH Chirinos ([id number])[facility] ([facility] [place] [place] [address] MCH (RBC) [Entitic mass] 34.0 pg Normal 26.0-34.0 [facility] Comment on above: Performed By: #### 5 7021-8 ####TRISH Chirinos ([id number])[facility] ([facility])[address] [place] [facility] [place] [address] MCHC (RBC) [Mass/Vol] 35.5 g/dL Normal 32.0-36.0 [facility] Comment on above: Performed By: #### 5 7021-8 ####TRISH Chirinos ([id number])[facility] ([facility])[address] [place] [address] MCV (RBC) [Entitic vol] 96 fL Normal 80-100 [facility] Comment on above: Performed By: #### 5 7021-8 ####TRISH Chirinos ([id number])[facility] ([facility])[address] [place] [address] Monocytes (Bld) [#/Vol] 1.22 x10*3/uL High 0.10-1.00 [facility] Comment on above: Performed By: #### 5 7021-8 ####TRISH Chirinos ([id number])[facility] ([facility])[address] [place] [address] Monocytes/100 WBC (Bld) 14.2 % Normal 2.0-10.0 [facility] Comment on above: Performed By: #### 5 7021-8 ####TRISH Chirinos ([id number])[facility] ([facility])[address] [place] [address] Neutrophils (Bld) [#/Vol] 6.57 x10*3/uL Normal 1.20-7.70 [facility] Comment on above: Result Comment: Perc ent differential counts (%) should be interpreted in the context of the absolute cell counts (cells/uL). Performed By: #### 5 7021-8 ####TRISH Chirinos ([id number])[facility] ([facility])[address] [place] [address] Neutrophils/100 WBC (Bld) 76.3 % Normal 40.0-80.0 [facility] Comment on above: Performed By: #### 5 7021-8 ####TRISH Chirinos ([id number])[facility] ([facility])[address] [place] [address] Nucleated RBC/100 WBC (Bld) [Ratio] 0.0 /100 WBCs Normal 0.0-0.0 [facility] Comment on above: Performed By: #### 5 7021-8 ####TRISH Chirinos ([id number])[facility] ([facility])[address] [place] [address] Platelets (Bld) [#/Vol] 153 x10*3/uL Normal 150-450 [facility] Comment on above: Performed By: #### 5 7021-8 ####TRISH Chirinos ([id number])[facility] ([facility])[address] [place] [address] RBC (Bld) [#/Vol] 3.88 x10*6/uL Low 4.50-5.90 [facility] Comment on above: Performed By: #### 5 7021-8 ####TRISH Chirinos ([id number])[facility] ([facility])[address] [place] [address] WBC (Bld) [#/Vol] 8.6 x10*3/uL Normal 4.4-11.3 [facility] Comment on above: Performed By: #### 5 7021-8 ####TRISH Chirinos ([id number])[facility] ([facility])[address] [place] [address] Glucose Test strip manual (B ld) [Mass/Vol]on 08-04-2024 Glucose [Mass/Vol] 291 mg/dL High 74 - 99 mg/dL [facility] Interpretation and review of laboratory results Abnormal [facility] Glucose [Mass/Vol] 291 mg/dL High 74-99 [facility] Comment on above: Performed By: #### 5 7021-8 #### TRISH Chirinos ([id number]) [facility] ([facility]) [address] [place] [address] Glucose [Mass/Vol] 308 mg/dL High 74 - 99 mg/dL [facility] Interpretation and review of laboratory results Abnormal [facility] Glucose [Mass/Vol] 308 mg/dL High 74-99 [facility] Comment on above: Performed By: #### 5 7021-8 #### TRISH Chirinos ([id number]) [facility] ([facility]) [address] [place] [address] Glucose [Mass/Vol] 197 mg/dL High 74 - 99 mg/dL [facility] Interpretation and review of laboratory results Abnormal [facility] Glucose [Mass/Vol] 197 mg/dL High 74-99 [facility] Comment on above: Performed By: #### 2 341-6 ####TRISH Chirinos ([id number])[facility] ([facility])[address] [place] [address] Glucose [Mass/Vol] 233 mg/dL High 74 - 99 mg/dL [facility] Interpretation and review of laboratory results Abnormal [facility] Glucose [Mass/Vol] 233 mg/dL High 74-99 [facility] Comment on above: Performed By: #### 2 341-6 ####TRISH Chirinos ([id number])[facility] ([facility])[address] [place] [address] Glucose [Mass/Vol] 244 mg/dL High 74 - 99 mg/dL [facility] Interpretation and review of laboratory results Abnormal [facility] Glucose [Mass/Vol] 244 mg/dL High 74-99 [facility] Comment on above: Performed By: #### 2 341-6 ####TRISH Chirinos ([id number])[facility] ([facility])[address] [place] [address] Basic metabolic 2000 panelon 08-03-2024 Anion gap [Moles/Vol] 8 mmol/L Low 10 - 2 0 mmol/L [facility] Calcium [Mass/Vol] 8.3 mg/dL Low 8.6 - 10. 3 mg/dL [facility] Chloride [Moles/Vol] 110 mmol/L High 98 - 10 7 mmol/L [facility] CO2 [Moles/Vol] 17 mmol/L Low 21 - 32 mmol/L [facility] Creatinine [Mass/Vol] 0.6 mg/dL 0.50 - 1.30 mg/dL [facility] eGFR - PINF [facility] Comment on above: Calculations of deondre mated GFR are performed using the 2020 CKD-EPI Study Refit equation without the race variable for the IDMS-Traceable creatinine methods. https://jasn.asnjournals.org/content//ASN.35190 56918 Glucose [Mass/Vol] 137 mg/dL High 74 - 99 mg/dL [facility] Interpretation and review of laboratory results Abnormal [facility] Potassium [Moles/Vol] 3.8 mmol/L 3.5 - 5.3 mmol/L [facility] Sodium [Moles/Vol] 131 mmol/L Low 136 - 145 mmol/L [facility] Urea nitrogen [Mass/Vol] 7 mg/dL 6 - 23 mg/dL [facility] Anion gap [Moles/Vol] 8 mmol/L Low 10-20 [facility] Comment on above: Performed By: #### 2 4321-2 ####TRISH Chirinos ([id number])[facility] ([facility])[address] [place] [facility] [place] [address] Calcium [Mass/Vol] 8.3 mg/dL Low 8.6-10.3 [facility] Comment on above: Performed By: #### 2 4321-2 ####TRISH Chirinos ([id number])[facility] ([facility])[address] [place] [address] Chloride [Moles/Vol] 110 mmol/L High 98-107 [facility] Comment on above: Performed By: #### 2 4321-2 ####TRISH Chirinos ([id number])[facility] ([facility])[address] [place] [address], [place] [address] CO2 [Moles/Vol] 17 mmol/L Low 21-32 [facility] Comment on above: Performed By: #### 2 4321-2 ####TRISH Chirinos ([id number])[facility] ([facility])[address] [place] [address] Creatinine [Mass/Vol] 0.60 mg/dL Normal 0.50-1.30 [facility] Comment on above: Performed By: #### 2 4321-2 ####TRISH Chirinos ([id number])[facility] ([facility])[address] [place] [address] GFR/1.73 sq M.predicted MDRD (S/P/Bld) [Vol rate/Area] mL/min/{1.73_m2} Normal >60 [facility] Comment on above: Result Comment: Calc ulations of estimated GFR are performed using the 2020 CKD-EPI Study Refit equation without the race variable for the IDMS-Traceable creatinine methods. https://jasn.asnjournals.org/content/early//ASN.21528 09763 Performed By: #### 2 4321-2 ####TRISH Chirinos ([id number])[facility] ([facility])[address] [place] [address] Glucose [Mass/Vol] 137 mg/dL High 74-99 [facility] Comment on above: Performed By: #### 2 4321-2 ####TRISH Chirinos ([id number])[facility] ([facility])[address] [place] [address] Potassium [Moles/Vol] 3.8 mmol/L Normal 3.5-5.3 [facility] Comment on above: Performed By: #### 2 4321-2 ####TRISH Chirinos ([id number])[facility] ([facility])[address] [place] [address] Sodium [Moles/Vol] 131 mmol/L Low 136-145 [facility] Comment on above: Performed By: #### 2 4321-2 ####TRISH Chirinos ([id number])[facility] ([facility])[address] [place] [address] Urea nitrogen [Mass/Vol] 7 mg/dL Normal 6-23 [facility] Comment on above: Performed By: #### 2 4321-2 ####TRISH Chirinos ([id number])[facility] ([facility])[address] [place] [address] Anion gap [Moles/Vol] 14 mmol/L 10 - 2 0 mmol/L [facility] Calcium [Mass/Vol] 8.2 mg/dL Low 8.6 - 10. 3 mg/dL [facility] Chloride [Moles/Vol] 109 mmol/L High 98 - 10 7 mmol/L [facility] CO2 [Moles/Vol] 14 mmol/L Low 21 - 32 mmol/L [facility] Creatinine [Mass/Vol] 0.74 mg/dL 0.50 - 1.30 mg/dL [facility] eGFR - PINF [facility] Comment on above: Calculations of deondre mated GFR are performed using the 2020 CKD-EPI Study Refit equation without the race variable for the IDMS-Traceable creatinine methods. https://jasn.asnjournals.org/content//ASN.06021 71917 Glucose [Mass/Vol] 171 mg/dL High 74 - 99 mg/dL [facility] Interpretation and review of laboratory results Abnormal [facility] Potassium [Moles/Vol] 3 mmol/L Low 3.5 - 5.3 mmol/L [facility] Sodium [Moles/Vol] 134 mmol/L Low 136 - 145 mmol/L [facility] Urea nitrogen [Mass/Vol] 8 mg/dL 6 - 23 mg/dL [facility] Anion gap [Moles/Vol] 14 mmol/L Normal 10-20 [facility] Comment on above: Performed By: #### 2 4321-2 ####TRISH Chirinos ([id number])[facility] ([facility])[address] [place] [address] Calcium [Mass/Vol] 8.2 mg/dL Low 8.6-10.3 [facility] Comment on above: Performed By: #### 2 4321-2 ####TRISH Chirinos ([id number])[facility] ([facility])[address] [place], [place] [address], [place] [address] Chloride [Moles/Vol] 109 mmol/L High 98-107 [facility] Comment on above: Performed By: #### 2 4321-2 ####TRISH Chirinos ([id number])[facility] ([facility])[address] [place] [address] CO2 [Moles/Vol] 14 mmol/L Low 21-32 [facility] Comment on above: Performed By: #### 2 4321-2 ####TRISH Chirinos ([id number])[facility] ([facility])[address] [facility] [place] [address] Creatinine [Mass/Vol] 0.74 mg/dL Normal 0.50-1.30 [facility] Comment on above: Performed By: #### 2 432-2 ####TRISH Chirinos ([id number])[facility] ([facility])[address] [place] [facility] [place] [address] GFR/1.73 sq M.predicted MDRD (S/P/Bld) [Vol rate/Area] mL/min/{1.73_m2} Normal >60 [facility] Comment on above: Result Comment: Calc ulations of estimated GFR are performed using the 2020 CKD-EPI Study Refit equation without the race variable for the IDMS-Traceable creatinine methods. https://jasn.asnjournals.org/content//ASN.14286 21896 Performed By: #### 2 4321-2 ####TRISH Chirinos ([id number])[facility] ([facility])[address] [place] [facility] [place] [address] Glucose [Mass/Vol] 171 mg/dL High 74-99 [facility] Comment on above: Performed By: #### 2 4321-2 ####TRISH Chirinos ([id number])[facility] ([facility])[address] [facility] [place] [address] Potassium [Moles/Vol] 3.0 mmol/L Low 3.5-5.3 [facility] Comment on above: Performed By: #### 2 4321-2 ####TRISH Chirinos ([id number])[facility] ([facility])[address] [place] [facility] [place] [address] Sodium [Moles/Vol] 134 mmol/L Low 136-145 [facility] Comment on above: Performed By: #### 2 4321-2 ####TRISH Chirinos ([id number])[facility] ([facility])[address] [place] [facility] [place] [address] Urea nitrogen [Mass/Vol] 8 mg/dL Normal 6-23 [facility] Comment on above: Performed By: #### 2 4321-2 ####TRISH Chirinos ([id number])[facility] ([facility])[address] [place] [address], [place] [address] Anion gap [Moles/Vol] 22 mmol/L High 10 - 2 0 mmol/L [facility] Calcium [Mass/Vol] 8 mg/dL Low 8.6 - 10. 3 mg/dL [facility] Chloride [Moles/Vol] 108 mmol/L High 98 - 10 7 mmol/L [facility] CO2 [Moles/Vol] 8 mmol/L Critically low 21 - 32 mmol/L [facility] Comment on above: Previous result veri fied on 08/03/2024 1156 on specimen/case [id number] called with component BIC for procedure Comprehensive metabolic panel with value 7 mmol/L. Creatinine [Mass/Vol] 0.81 mg/dL 0.50 - 1.30 mg/dL [facility] eGFR - PINF [facility] Comment on above: Calculations of deondre mated GFR are performed using the 2020 CKD-EPI Study Refit equation without the race variable for the IDMS-Traceable creatinine methods. https://jasn.asnjournals.org/content///ASN.13913 96580 Glucose [Mass/Vol] 233 mg/dL High 74 - 99 mg/dL [facility] Interpretation and review of laboratory results Abnormal [facility] Potassium [Moles/Vol] 3.2 mmol/L Low 3.5 - 5.3 mmol/L [facility] Sodium [Moles/Vol] 135 mmol/L Low 136 - 145 mmol/L [facility] Urea nitrogen [Mass/Vol] 10 mg/dL 6 - 23 mg/dL [facility] Anion gap [Moles/Vol] 22 mmol/L High 10-20 [facility] Comment on above: Order Comment: OVER is reported when the result is greater than the clinically reportable range. Performed By: #### [id number] #### TRISH Chirinos ([id number]) [facility] ([facility] [place] [address] [place] [id number] Calcium [Mass/Vol] 8.0 mg/dL Low 8.6-10.3 [facility] Comment on above: Order Comment: OVER is reported when the result is greater than the clinically reportable range. Performed By: #### 5 8077-9 #### TRISH Chirinos ([id number]) [facility] ([facility] [address] [place] [address] [phone] Chloride [Moles/Vol] 108 mmol/L High 98-107 [facility] Comment on above: Order Comment: OVER is reported when the result is greater than the clinically reportable range. Performed By: #### 5 8077-9 #### TRISH Chirinos ([id number]) [facility] ([facility]) [address] [place] [address] [phone] CO2 [Moles/Vol] 8 mmol/L Critically low 21-32 [facility] Comment on above: Order Comment: OVER is reported when the result is greater than the clinically reportable range. Result Comment: Prev ious result verified on 08/03/2024 1156 on specimen/case [id number] called with component BIC for procedure Comprehensive metabolic panel with value 7 mmol/L. Performed By: #### 5 8077-9 #### TRISH Chirinos ([id number]) [facility] ([facility]) [address] [place] [address] [phone] Creatinine [Mass/Vol] 0.81 mg/dL Normal 0.50-1.30 [facility] Comment on above: Order Comment: OVER is reported when the result is greater than the clinically reportable range. Performed By: #### 5 8077-9 #### TRISH Chirinos ([id number]) [facility] ([facility]) [address] [place] [address] [phone] GFR/1.73 sq M.predicted MDRD (S/P/Bld) [Vol rate/Area] mL/min/{1.73_m2} Normal >60 [facility] Comment on above: Order Comment: OVER is reported when the result is greater than the clinically reportable range. Result Comment: Calc ulations of estimated GFR are performed using the 2020 CKD-EPI Study Refit equation without the race variable for the IDMS-Traceable creatinine methods. https://jasn.asnjournals.org/content/early//ASN.13382 19492 Performed By: #### 5 8077-9 #### TRISH Chirinos ([id number]) [facility] ([facility]) [address] [place] [address] [phone] Glucose [Mass/Vol] 233 mg/dL High 74-99 [facility] Comment on above: Order Comment: OVER is reported when the result is greater than the clinically reportable range. Performed By: #### 5 8077-9 #### TRISH Chirinos ([id number]) [facility] ([facility]) [address] [place] [address] [phone] Potassium [Moles/Vol] 3.2 mmol/L Low 3.5-5.3 [facility] Comment on above: Order Comment: OVER is reported when the result is greater than the clinically reportable range. Performed By: #### 5 8077-9 #### TRISH Chirinos ([id number]) [facility] ([facility]) [address] [place] [address] [phone] Sodium [Moles/Vol] 135 mmol/L Low 136-145 [facility] Comment on above: Order Comment: OVER is reported when the result is greater than the clinically reportable range. Performed By: #### 5 8077-9 #### TRISH Chirinos ([id number]) [facility] ([facility]) [address] [place] [address] 56094 Urea nitrogen [Mass/Vol] 10 mg/dL Normal 6-23 [facility] Comment on above: Order Comment: OVER is reported when the result is greater than the clinically reportable range. Performed By: #### 5 8077-9 #### TRISH Chirinos ([id number]) [facility] ([facility]) [address] [place] [address] [phone] Beta hydroxybutyrate [Mass o r moles/Vol]on 08-03-2024 Beta hydroxybutyrate [Moles/Vol] 10.42 mmol/L High 0.02 - 0.27 mmol/L [facility] Interpretation and review of laboratory results Abnormal [facility] The beta-hydroxybuty rate test performance characteristics have been validated by [facility]. This test has not been approved by the FDA; however,such approval is not necessary. [facility] Beta hydroxybutyrate [Moles/Vol] 10.42 mmol/L High 0.02-0.27 [facility] Comment on above: Order Comment: OVER is reported when the result is greater than the clinically reportable range. Performed By: #### 5 8077-9 #### TRISH Chirinos ([id number]) [facility] ([facility]) [address] [place] [address] [phone] C reactive proteinon 025 CRP [Mass/Vol] 19.07 mg/dL High <1.00 [facility] Comment on above: Performed By: #### 1 988-5 #### TRISH Chirinos ([id number]) [facility] ([facility]) [address] [place] [address] 32889 C-Reactive Proteinon 025 CRP [Mass/Vol] 19.07 mg/dL High NINF - 1.00 mg/dL [facility] CBC W Auto Differential pane l (Bld)on 08-03-2024 Basophils (Bld) [#/Vol] 0.04 10*3/uL [facility] Basophils/100 WBC (Bld) 0.4 % 0.0 - 2.0 % [facility] Eosinophils (Bld) [#/Vol] 0.01 10*3/uL [facility] Eosinophils/100 WBC (Bld) 0.1 % 0.0 - 6.0 % [facility] Erythrocyte distribution width (RBC) [Ratio] 11.8 % 11.5 - 14.5 % [facility] Hematocrit (Bld) [Volume fraction] 42.5 % 41.0 - 52.0 % [facility] Hemoglobin (Bld) [Mass/Vol] 14.7 g/dL 13.5 - 17.5 g/dL [facility] Immature granulocytes (Bld) [#/Vol] 0.08 10*3/uL [facility] Immature granulocytes/100 WBC (Bld) 0.7 % 0.0 - 0.9 % [facility] Comment on above: Immature Granulocyte Count (IG) includes promyelocytes, myelocytes and metamyelocytes but does not include bands. Percent differential counts (%) should be interpreted in the context of the absolute cell counts (cells/UL). Interpretation and review of laboratory results Abnormal [facility] Lymphocytes (Bld) [#/Vol] 1.04 10*3/uL Low [facility] Lymphocytes/100 WBC (Bld) 9.7 % 13.0 - 44.0 % [facility] MCH (RBC) [Entitic mass] 33.8 pg 26.0 - 34.0 pg [facility] MCHC (RBC) [Mass/Vol] 34.6 g/dL 32.0 - 36.0 g/dL [facility] MCV (RBC) [Entitic vol] 98 fL 80 - 100 fL [facility] Monocytes (Bld) [#/Vol] 1.5 10*3/uL High [facility] Monocytes/100 WBC (Bld) 13.9 % 2.0 - 10.0 % [facility] Neutrophils (Bld) [#/Vol] 8.1 10*3/uL High [facility] Comment on above: Percent differential counts (%) should be interpreted in the context of the absolute cell counts (cells/uL). Neutrophils/100 WBC (Bld) 75.2 % 40.0 - 80.0 % [facility] Nucleated RBC/100 WBC (Bld) [Ratio] 0 % [facility] Platelets (Bld) [#/Vol] 180 10*3/uL [facility] RBC (Bld) [#/Vol] 4.35 10*6/uL Low [facility] WBC (Bld) [#/Vol] 10.8 10*3/uL [facility] Basophils (Bld) [#/Vol] 0.04 x10*3/uL Normal 0.00-0.10 [facility] Comment on above: Performed By: #### 5 7021-8 #### TRISH Chirinos ([id number]) [facility] ([facility]) [address] [place] [address] [phone] Basophils/100 WBC (Bld) 0.4 % Normal 0.0-2.0 [facility] Comment on above: Performed By: #### 5 7021-8 #### TRISH Chirinos ([id number]) [facility] ([facility]) [address] [place] [address] 44843 Eosinophils (Bld) [#/Vol] 0.01 x10*3/uL Normal 0.00-0.70 [facility] Comment on above: Performed By: #### 5 7021-8 #### TRISH Chirinos ([id number]) [facility] ([facility]) [address] [place] [address] 14025 Eosinophils/100 WBC (Bld) 0.1 % Normal 0.0-6.0 [facility] Comment on above: Performed By: #### 5 7021-8 #### TRISH Chirinos ([id number]) [facility] ([facility]) [address] [place] [address] 66741 Erythrocyte distribution width (RBC) [Ratio] 11.8 % Normal 11.5-14.5 [facility] Comment on above: Performed By: #### 5 7021-8 #### TRISH Chirinos ([id number]) [facility] ([facility]) [address] [place] [address] 56936 Hematocrit (Bld) [Volume fraction] 42.5 % Normal 41.0-52.0 [facility] Comment on above: Performed By: #### 5 7021-8 #### TRISH Chirinos ([id number]) [facility] ([facility]) [address] [place] [address] [phone] Hemoglobin (Bld) [Mass/Vol] 14.7 g/dL Normal 13.5-17.5 [facility] Comment on above: Performed By: #### 5 7021-8 #### TRISH Chirinos ([id number]) [facility] ([facility]) [address] [place] [address] [phone] Immature granulocytes (Bld) [#/Vol] 0.08 x10*3/uL Normal 0.00-0.70 [facility] Comment on above: Performed By: #### 5 7021-8 #### TRISH Chirinos ([id number]) [facility] ([facility]) [address] [place] [address] 14468 Immature granulocytes/100 WBC (Bld) 0.7 % Normal 0.0-0.9 [facility] Comment on above: Result Comment: Tamika ture Granulocyte Count (IG) includes promyelocytes, myelocytes and metamyelocytes but does not include bands. Percent differential counts (%) should be interpreted in the context of the absolute cell counts (cells/UL). Performed By: #### 5 7021-8 #### TRISH Chirinos ([id number]) [facility] ([facility]) [address] [place] [address] 19917 Lymphocytes (Bld) [#/Vol] 1.04 x10*3/uL Low 1.20-4.80 [facility] Comment on above: Performed By: #### 5 7021-8 #### TRISH Chirinos ([id number]) [facility] ([facility]) [address] [place] [address] 77485 Lymphocytes/100 WBC (Bld) 9.7 % Normal 13.0-44.0 [facility] Comment on above: Performed By: #### 5 7021-8 #### TRISH Chirinos ([id number]) [facility] ([facility]) [address] [place] [address] 58421 MCH (RBC) [Entitic mass] 33.8 pg Normal 26.0-34.0 [facility] Comment on above: Performed By: #### 5 7021-8 #### TRISH Chirinos ([id number]) [facility] ([facility]) [address] [place] [address] MCHC (RBC) [Mass/Vol] 34.6 g/dL Normal 32.0-36.0 [facility] Comment on above: Performed By: #### 5 7021-8 #### TRISH Chirinos ([id number]) [facility] ([facility]) [address] [place] [address] MCV (RBC) [Entitic vol] 98 fL Normal 80-100 [facility] Comment on above: Performed By: #### 5 7021-8 #### TRISH Chirinos ([id number]) [facility] ([facility]) [address] [place] [address] Monocytes (Bld) [#/Vol] 1.50 x10*3/uL High 0.10-1.00 [facility] Comment on above: Performed By: #### 5 7021-8 #### TRISH Chirinos ([id number]) [facility] ([facility]) [address] [place] [address] [phone] Monocytes/100 WBC (Bld) 13.9 % Normal 2.0-10.0 [facility] Comment on above: Performed By: #### 5 7021-8 #### TRISH Chirinos ([id number]) [facility] ([facility]) [address] [place] [address] [phone] Neutrophils (Bld) [#/Vol] 8.10 x10*3/uL High 1.20-7.70 [facility] Comment on above: Result Comment: Perc ent differential counts (%) should be interpreted in the context of the absolute cell counts (cells/uL). Performed By: #### 5 7021-8 #### TRISH Chirinos ([id number]) [facility] ([facility]) [address] [place] [address] 87189 Neutrophils/100 WBC (Bld) 75.2 % Normal 40.0-80.0 [facility] Comment on above: Performed By: #### 5 7021-8 #### TRISH Chirinos ([id number]) [facility] ([facility]) [address] [place] [address] 53120 Nucleated RBC/100 WBC (Bld) [Ratio] 0.0 /100 WBCs Normal 0.0-0.0 [facility] Comment on above: Performed By: #### 5 7021-8 #### TRISH Chirinos ([id number]) [facility] ([facility]) [address] [place] [address] 05152 Platelets (Bld) [#/Vol] 180 x10*3/uL Normal 150-450 [facility] Comment on above: Performed By: #### 5 7021-8 #### TRISH Chirinos ([id number]) [facility] ([facility]) [address] [place] [address] [phone] RBC (Bld) [#/Vol] 4.35 x10*6/uL Low 4.50-5.90 [facility] Comment on above: Performed By: #### 5 7021-8 #### TRISH Chirinos ([id number]) [facility] ([facility]) [address] [place] [address] 65838 WBC (Bld) [#/Vol] 10.8 x10*3/uL Normal 4.4-11.3 [facility] Comment on above: Performed By: #### 5 7021-8 #### TRISH Chirinos ([id number]) [facility] ([facility]) [address] [place] [address] [phone] CK [Catalytic activity/Vol]o n 08-03-2024 Interpretation and review of laboratory results Normal [facility] CT ABDOMEN PELVIS W IV CONTR [place] 08-03-2024 CT ABDOMEN PELVIS W IV CONTRAST Interpreted By: Imtiaz Aly, STUDY: CT ABDOMEN PELVIS W IV CONTRAST; 08/03/2024 2:32 pm INDICATION: Signs/Symptoms:R pelvic pain, iliacus illiopsoas hematoma vs infection. COMPARISON: CT abdomen and pelvis without contrast 03 August 2024 at 0906 hours ACCESSION NUMBER(S): [id number] ORDERING CLINICIAN: JHON DEAN TECHNIQUE: CT of the abdomen and pelvis from the lung bases through the symphysis pubis after the uneventful administration of intravenous contrast (75 mL Omnipaque 350). No oral contrast. FINDINGS: LOWER CHEST: No acute airspace disease. BONES: No acute osseous findings. Right iliacus muscle expansile compared to other side. There was no acute hematoma on CT without contrast earlier today No abscess on CT with contrast presently LIVER: Normal. No enlargement or evidence of cirrhosis or fatty change. No mass or other suspect lesion. SPLEEN: Normal. No enlargement, mass or evidence of splenic vein thrombosis. PANCREAS: Normal. No CT evidence of acute or chronic pancreatitis. No duct dilation. No mass. GALLBLADDER: Normal CT appearance. No dilation, calcified, or gas-containing stones. Other types of gallstones could be occult on CT and detectable only by ultrasound. BILE DUCTS: Normal. No biliary duct dilation. ADRENAL GLANDS: Normal. No nodule or mass. KIDNEYS AND URETERS: Normal. No hydronephrosis on either side. No mass. Symmetric enhancement. No infarct or CT evidence of acute pyelonephritis. No substantial radiodense stone. Tiny stones and radiolucent stones could be occult on CT. LYMPH NODES: No adenopathy, intraperitoneal, retroperitoneal, pelvic or otherwise APPENDIX: Similar to earlier today. A portion of normal caliber proximal appendix compressed up against the back wall of the cecum but entirety of appendix not clearly delineated COLON: Normal. No sign of acute diverticulitis or other colitis. No annular constricting mass. SMALL BOWEL: Normal. No small bowel dilation or any other sign of small bowel obstruction. No sign of active inflammatory bowel disease. STOMACH / DUODENUM: Grossly normal by CT which has limited sensitivity and specificity for the stomach and duodenum. RETROPERITONEUM: Normal. No acute hemorrhage or inflammatory change. Lymph nodes in a separate dedicated section. OMENTUM, MESENTERY AND PERITONEAL SPACES: Free intraperitoneal air: Negative Free intraperitoneal fluid: Negative Abscess: Negative Other: n/a URINARY BLADDER: Distended but otherwise remains normal PELVIS: The prostate is not significantly enlarged. No pelvic mass, adenopathy or free fluid. VASCULATURE: No abdominal aortic or iliac artery aneurysm. No high grade stenosis of the major abdominal aortic branch vessels. Portal venous system patent. ABDOMINAL WALL: Hernia: Negative Other: No acute or contributory abnormality. IMPRESSION: IV contrast on the present exam could potentially obscure a muscular hematoma but there was no acute hematoma in the right iliacus muscle earlier today The present CT with contrast does not reveal a walled-off abscess in the right iliacus or anywhere else Otherwise, the remains uncertain the exact etiology of the right iliacus muscle edematous enlargement No new or newly evident acute findings with IV contrast As was the case earlier today, I suspect at least a demonstrable normal caliber proximal appendix against the back wall of the cecum but it is difficult to identify the mid and distal appendix. No calcified appendicolith No acute pancreatitis, hydronephrosis/urinary stone or any other acute solid organ findings No gallbladder or biliary duct dilation No perforation or abscess, only trace unchanged abnormal free pelvic fluid MACRO: None Signed by: Imtiaz Aly 08/03/2024 2:40 PM Dictation workstation: [id number] [facility] CT ABDOMEN PELVIS WO IV CONT Johanna 08-03-2024 CT ABDOMEN PELVIS WO IV CONTRAST STUDY: CT Abdomen and Pelvis without IV Contrast; 08/03/2024 9:11 AM. INDICATION: Groin pain. COMPARISON: None Available. ACCESSION NUMBER(S): [id number] ORDERING CLINICIAN: LAKESHA MENDOZA TECHNIQUE: CT of the abdomen and pelvis was performed. Contiguous axial images were obtained at 3 mm slice thickness through the abdomen and pelvis. Coronal and sagittal reconstructions at 3 mm slice thickness were performed. No intravenous contrast was administered. Automated mA/kV exposure control was utilized and patient examination was performed in strict accordance with principles of ALARA. FINDINGS: Please note that the evaluation of vessels, lymph nodes and organs is limited without intravenous contrast. LOWER CHEST: No cardiomegaly. No pericardial effusion. Multiple noncalcified nodules in the lung bases measuring up to 7 mm laterally in the left lower lobe ABDOMEN: LIVER: No hepatomegaly. Smooth surface contour. Normal attenuation. BILE DUCTS: No intrahepatic or extrahepatic biliary ductal dilatation. GALLBLADDER: The gallbladder is present without gallstones. STOMACH: No abnormalities identified. PANCREAS: No masses or ductal dilatation. SPLEEN: No splenomegaly or focal splenic lesion. ADRENAL GLANDS: No thickening or nodules. KIDNEYS AND URETERS: Kidneys are normal in size and location. No renal or ureteral calculi. PELVIS: BLADDER: Mild diffuse urinary bladder wall thickening REPRODUCTIVE ORGANS: No abnormalities identified. BOWEL: . Moderate to large stool volume. A portion of the appendix is believed to be visualized and measures 5 to 6 mm, although the entire appendix is not clearly seen. VESSELS: No abnormalities identified. Abdominal aorta is normal in caliber. PERITONEUM/RETROPERITONE UM/LYMPH NODES: Trace pelvic free fluid. No pneumoperitoneum. No lymphadenopathy. ABDOMINAL WALL: No abnormalities identified. SOFT TISSUES: There is asymmetric enlargement of the right iliacus muscle measuring up to 3.8 cm in thickness with the left measuring 2.5 cm. There is also mild haziness surrounding the right iliacus muscle and distal aspect of the iliopsoas muscle BONES: No acute fracture or aggressive osseous lesion. L5 pars defects. IMPRESSION: 1. Asymmetric enlargement of the right iliacus muscle measuring up to 3.8 cm in thickness with the left measuring 2.5 cm. There is also mild haziness surrounding the right iliacus muscle and distal aspect of the iliopsoas muscle. Findings may be secondary to a hematoma or possible infection. Correlate with infectious symptoms. Consider further evaluation with contrast-enhanced CT or contrast-enhanced MRI. 2. Mild diffuse urinary bladder wall thickening. Correlate with urinalysis for possible cystitis. 3. Moderate to large stool volume. 4. Multiple noncalcified nodules in the lung bases measuring up to 7 mm laterally in the left lower lobe. Fleischner Society 2017 Guidelines for Management of Incidentally Detected Pulmonary Nodules in Adults: A. SOLID NODULES* Nodule Type and Size: Single: *Low Risk < 6 mm - No routine follow-up 6-8 mm - CT at 6-12 months, then consider CT at 18-24 months > 8 mm - Consider CT at 3 months, PET/CT, or tissue sampling *High Risk < 6 mm - Optional CT at 12 months 6-8 mm - CT at 6-12 months, then CT at 18-24 months > 8 mm - Consider CT at 3 months, PET/CT, or tissue sampling Multiple: *Low Risk < 6 mm - No routine follow-up 6-8 mm - CT at 3-6 months, then consider CT at 18-24 months > 8 mm - CT at 3-6 months, then consider CT at 18-24 months *High Risk < 6 mm - Optional CT at 12 months 6-8 mm - CT at 3-6 months, then at 18-24 months > 8 mm - CT at 3-6 months, then at 18-24 months B. SUBSOLID NODULES* Nodule Type and Size: Single: *Ground glass < 6 mm - No routine follow-up > 6 mm - CT at 6-12 months to confirm persistence, then CT every 2 years until 5 years *Part Solid < 6 mm - No routine follow-up > 6 mm - CT at 3-6 months to confirm persistence. If unchanged and solid component remains < 6 mm, annual CT should be performed for 5 years. Multiple: < 6 mm - CT at 3-6 months. If stable, consider CT at 2 and 4 years. > 6 mm - CT at 3-6 months. Subsequent management based on the most suspicious nodule(s). Note - These recommendations do not apply to lung cancer screening, patients with immunosuppression, or patients with known primary cancer. * Dimensions are average of long and short axes, rounded to the nearest millimeter. Consider all relevant risk factors. Signed by Satya Campo MD [facility] CT Abdomen WO contraston 1. Asymmetric enlargement of the right iliacus muscle measuring up to 3.8 cm in thickness with the left measuring 2.5 cm. There is also mild haziness surrounding the right iliacus muscle and distal aspect of the iliopsoas muscle. Findings may be secondary to a hematoma or possible infection. Correlate with infectious symptoms. Consider further evaluation with contrast-enhanced CT or contrast-enhanced MRI. 2. Mild diffuse urinary bladder wall thickening. Correlate with urinalysis for possible cystitis. 3. Moderate to large stool volume. 4. Multiple noncalcified nodules in the lung bases measuring up to 7 mm laterally in the left lower lobe. Fleischner Society 2017 Guidelines for Management of Incidentally Detected Pulmonary Nodules in Adults: A. SOLID NODULES* Nodule Type and Size: Single: *Low Risk < 6 mm - No routine follow-up 6-8 mm - CT at 6-12 months, then consider CT at 18-24 months > 8 mm - Consider CT at 3 months, PET/CT, or tissue sampling *High Risk < 6 mm - Optional CT at 12 months 6-8 mm - CT at 6-12 months, then CT at 18-24 months > 8 mm - Consider CT at 3 months, PET/CT, or tissue sampling Multiple: *Low Risk < 6 mm - No routine follow-up 6-8 mm - CT at 3-6 months, then consider CT at 18-24 months > 8 mm - CT at 3-6 months, then consider CT at 18-24 months *High Risk < 6 mm - Optional CT at 12 months 6-8 mm - CT at 3-6 months, then at 18-24 months > 8 mm - CT at 3-6 months, then at 18-24 months B. SUBSOLID NODULES* Nodule Type and Size: Single: *Ground glass < 6 mm - No routine follow-up > 6 mm - CT at 6-12 months to confirm persistence, then CT every 2 years until 5 years *Part Solid < 6 mm - No routine follow-up > 6 mm - CT at 3-6 months to confirm persistence. If unchanged and solid component remains < 6 mm, annual CT should be performed for 5 years. Multiple: < 6 mm - CT at 3-6 months. If stable, consider CT at 2 and 4 years. > 6 mm - CT at 3-6 months. Subsequent management based on the most suspicious nodule(s). Note - These recommendations do not apply to lung cancer screening, patients with immunosuppression, or patients with known primary cancer. * Dimensions are average of long and short axes, rounded to the nearest millimeter. Consider all relevant risk factors. Signed by Satya Campo MD TELERADIOLOGY STUDY: CT Abdomen and Pelvis without IV Contrast; 08/03/2024 9:11 AM. INDICATION: Groin pain. COMPARISON: None Available. ACCESSION NUMBER(S): [id number] ORDERING CLINICIAN: LAKESHA MENDOZA TECHNIQUE: CT of the abdomen and pelvis was performed. Contiguous axial images were obtained at 3 mm slice thickness through the abdomen and pelvis. Coronal and sagittal reconstructions at 3 mm slice thickness were performed. No intravenous contrast was administered. Automated mA/kV exposure control was utilized and patient examination was performed in strict accordance with principles of ALARA. FINDINGS: Please note that the evaluation of vessels, lymph nodes and organs is limited without intravenous contrast. LOWER CHEST: No cardiomegaly. No pericardial effusion. Multiple noncalcified nodules in the lung bases measuring up to 7 mm laterally in the left lower lobe ABDOMEN: LIVER: No hepatomegaly. Smooth surface contour. Normal attenuation. BILE DUCTS: No intrahepatic or extrahepatic biliary ductal dilatation. GALLBLADDER: The gallbladder is present without gallstones. STOMACH: No abnormalities identified. PANCREAS: No masses or ductal dilatation. SPLEEN: No splenomegaly or focal splenic lesion. ADRENAL GLANDS: No thickening or nodules. KIDNEYS AND URETERS: Kidneys are normal in size and location. No renal or ureteral calculi. PELVIS: BLADDER: Mild diffuse urinary bladder wall thickening REPRODUCTIVE ORGANS: No abnormalities identified. BOWEL: . Moderate to large stool volume. A portion of the appendix is believed to be visualized and measures 5 to 6 mm, although the entire appendix is not clearly seen. VESSELS: No abnormalities identified. Abdominal aorta is normal in caliber. PERITONEUM/RETROPERITONE UM/LYMPH NODES: Trace pelvic free fluid. No pneumoperitoneum. No lymphadenopathy. ABDOMINAL WALL: No abnormalities identified. SOFT TISSUES: There is asymmetric enlargement of the right iliacus muscle measuring up to 3.8 cm in thickness with the left measuring 2.5 cm. There is also mild haziness surrounding the right iliacus muscle and distal aspect of the iliopsoas muscle BONES: No acute fracture or aggressive osseous lesion. L5 pars defects. TELERADIOLOGY Satya Campo MD - 08/03/2024 STUDY: CT Abdomen and Pelvis without IV Contrast; 08/03/2024 9:11 AM. INDICATION: Groin pain. COMPARISON: None Available. ACCESSION NUMBER(S): [id number] ORDERING CLINICIAN: LAKESHA MENDOZA TECHNIQUE: CT of the abdomen and pelvis was performed. Contiguous axial images were obtained at 3 mm slice thickness through the abdomen and pelvis. Coronal and sagittal reconstructions at 3 mm slice thickness were performed. No intravenous contrast was administered. Automated mA/kV exposure control was utilized and patient examination was performed in strict accordance with principles of ALARA. FINDINGS: Please note that the evaluation of vessels, lymph nodes and organs is limited without intravenous contrast. LOWER CHEST: No cardiomegaly. No pericardial effusion. Multiple noncalcified nodules in the lung bases measuring up to 7 mm laterally in the left lower lobe ABDOMEN: LIVER: No hepatomegaly. Smooth surface contour. Normal attenuation. BILE DUCTS: No intrahepatic or extrahepatic biliary ductal dilatation. GALLBLADDER: The gallbladder is present without gallstones. STOMACH: No abnormalities identified. PANCREAS: No masses or ductal dilatation. SPLEEN: No splenomegaly or focal splenic lesion. ADRENAL GLANDS: No thickening or nodules. KIDNEYS AND URETERS: Kidneys are normal in size and location. No renal or ureteral calculi. PELVIS: BLADDER: Mild diffuse urinary bladder wall thickening REPRODUCTIVE ORGANS: No abnormalities identified. BOWEL: . Moderate to large stool volume. A portion of the appendix is believed to be visualized and measures 5 to 6 mm, although the entire appendix is not clearly seen. VESSELS: No abnormalities identified. Abdominal aorta is normal in caliber. PERITONEUM/RETROPERITONE UM/LYMPH NODES: Trace pelvic free fluid. No pneumoperitoneum. No lymphadenopathy. ABDOMINAL WALL: No abnormalities identified. SOFT TISSUES: There is asymmetric enlargement of the right iliacus muscle measuring up to 3.8 cm in thickness with the left measuring 2.5 cm. There is also mild haziness surrounding the right iliacus muscle and distal aspect of the iliopsoas muscle BONES: No acute fracture or aggressive osseous lesion. L5 pars defects. IMPRESSION: 1. Asymmetric enlargement of the right iliacus muscle measuring up to 3.8 cm in thickness with the left measuring 2.5 cm. There is also mild haziness surrounding the right iliacus muscle and distal aspect of the iliopsoas muscle. Findings may be secondary to a hematoma or possible infection. Correlate with infectious symptoms. Consider further evaluation with contrast-enhanced CT or contrast-enhanced MRI. 2. Mild diffuse urinary bladder wall thickening. Correlate with urinalysis for possible cystitis. 3. Moderate to large stool volume. 4. Multiple noncalcified nodules in the lung bases measuring up to 7 mm laterally in the left lower lobe. Fleischner Society 2017 Guidelines for Management of Incidentally Detected Pulmonary Nodules in Adults: A. SOLID NODULES* Nodule Type and Size: Single: *Low Risk < 6 mm - No routine follow-up 6-8 mm - CT at 6-12 months, then consider CT at 18-24 months > 8 mm - Consider CT at 3 months, PET/CT, or tissue sampling *High Risk < 6 mm - Optional CT at 12 months 6-8 mm - CT at 6-12 months, then CT at 18-24 months > 8 mm - Consider CT at 3 months, PET/CT, or tissue sampling Multiple: *Low Risk < 6 mm - No routine follow-up 6-8 mm - CT at 3-6 months, then consider CT at 18-24 months > 8 mm - CT at 3-6 months, then consider CT at 18-24 months *High Risk < 6 mm - Optional CT at 12 months 6-8 mm - CT at 3-6 months, then at 18-24 months > 8 mm - CT at 3-6 months, then at 18-24 months B. SUBSOLID NODULES* Nodule Type and Size: Single: *Ground glass < 6 mm - No routine follow-up > 6 mm - CT at 6-12 months to confirm persistence, then CT every 2 years until 5 years *Part Solid < 6 mm - No routine follow-up > 6 mm - CT at 3-6 months to confirm persistence. If unchanged and solid component remains < 6 mm, annual CT should be performed for 5 years. Multiple: < 6 mm - CT at 3-6 months. If stable, consider CT at 2 and 4 years. > 6 mm - CT at 3-6 months. Subsequent management based on the most suspicious nodule(s). Note - These recommendations do not apply to lung cancer screening, patients with immunosuppression, or patients with known primary cancer. * Dimensions are average of long and short axes, rounded to the nearest millimeter. Consider all relevant risk factors. Signed by Satya Campo MD [facility] Work Phone: Radiology Study observation (narrative) [facility] Work Phone: CT Abdomen WO contrastOrdere d By: Satya Campo on 08-03-2024 [facility] Work Phone: CT Abdomen and Pelvis W cont rast Lisa 08-03-2024 IV contrast on the present exam could potentially obscure a muscular hematoma but there was no acute hematoma in the right iliacus muscle earlier today The present CT with contrast does not reveal a walled-off abscess in the right iliacus or anywhere else Otherwise, the remains uncertain the exact etiology of the right iliacus muscle edematous enlargement No new or newly evident acute findings with IV contrast As was the case earlier today, I suspect at least a demonstrable normal caliber proximal appendix against the back wall of the cecum but it is difficult to identify the mid and distal appendix. No calcified appendicolith No acute pancreatitis, hydronephrosis/urinary stone or any other acute solid organ findings No gallbladder or biliary duct dilation No perforation or abscess, only trace unchanged abnormal free pelvic fluid MACRO: None Signed by: Imtiaz Aly 08/03/2024 2:40 PM Dictation workstation: [id number] [facility] MMODAL Interpreted By: Imtiaz Escamilla, STUDY: CT ABDOMEN PELVIS W IV CONTRAST; 08/03/2024 2:32 pm INDICATION: Signs/Symptoms:R pelvic pain, iliacus illiopsoas hematoma vs infection. COMPARISON: CT abdomen and pelvis without contrast 03 August 2024 at 0906 hours ACCESSION NUMBER(S): [id number] ORDERING CLINICIAN: JHON DEAN TECHNIQUE: CT of the abdomen and pelvis from the lung bases through the symphysis pubis after the uneventful administration of intravenous contrast (75 mL Omnipaque 350). No oral contrast. FINDINGS: LOWER CHEST: No acute airspace disease. BONES: No acute osseous findings. Right iliacus muscle expansile compared to other side. There was no acute hematoma on CT without contrast earlier today No abscess on CT with contrast presently LIVER: Normal. No enlargement or evidence of cirrhosis or fatty change. No mass or other suspect lesion. SPLEEN: Normal. No enlargement, mass or evidence of splenic vein thrombosis. PANCREAS: Normal. No CT evidence of acute or chronic pancreatitis. No duct dilation. No mass. GALLBLADDER: Normal CT appearance. No dilation, calcified, or gas-containing stones. Other types of gallstones could be occult on CT and detectable only by ultrasound. BILE DUCTS: Normal. No biliary duct dilation. ADRENAL GLANDS: Normal. No nodule or mass. KIDNEYS AND URETERS: Normal. No hydronephrosis on either side. No mass. Symmetric enhancement. No infarct or CT evidence of acute pyelonephritis. No substantial radiodense stone. Tiny stones and radiolucent stones could be occult on CT. LYMPH NODES: No adenopathy, intraperitoneal, retroperitoneal, pelvic or otherwise APPENDIX: Similar to earlier today. A portion of normal caliber proximal appendix compressed up against the back wall of the cecum but entirety of appendix not clearly delineated COLON: Normal. No sign of acute diverticulitis or other colitis. No annular constricting mass. SMALL BOWEL: Normal. No small bowel dilation or any other sign of small bowel obstruction. No sign of active inflammatory bowel disease. STOMACH / DUODENUM: Grossly normal by CT which has limited sensitivity and specificity for the stomach and duodenum. RETROPERITONEUM: Normal. No acute hemorrhage or inflammatory change. Lymph nodes in a separate dedicated section. OMENTUM, MESENTERY AND PERITONEAL SPACES: Free intraperitoneal air: Negative Free intraperitoneal fluid: Negative Abscess: Negative Other: n/a URINARY BLADDER: Distended but otherwise remains normal PELVIS: The prostate is not significantly enlarged. No pelvic mass, adenopathy or free fluid. VASCULATURE: No abdominal aortic or iliac artery aneurysm. No high grade stenosis of the major abdominal aortic branch vessels. Portal venous system patent. ABDOMINAL WALL: Hernia: Negative Other: No acute or contributory abnormality. MMODAL Imtiaz Aly MD - 08/03/2024 Interpreted By: Imtiaz Aly, STUDY: CT ABDOMEN PELVIS W IV CONTRAST; 08/03/2024 2:32 pm INDICATION: Signs/Symptoms:R pelvic pain, iliacus illiopsoas hematoma vs infection. COMPARISON: CT abdomen and pelvis without contrast 03 August 2024 at 0906 hours ACCESSION NUMBER(S): [id number] ORDERING CLINICIAN: JHON DEAN TECHNIQUE: CT of the abdomen and pelvis from the lung bases through the symphysis pubis after the uneventful administration of intravenous contrast (75 mL Omnipaque 350). No oral contrast. FINDINGS: LOWER CHEST: No acute airspace disease. BONES: No acute osseous findings. Right iliacus muscle expansile compared to other side. There was no acute hematoma on CT without contrast earlier today No abscess on CT with contrast presently LIVER: Normal. No enlargement or evidence of cirrhosis or fatty change. No mass or other suspect lesion. SPLEEN: Normal. No enlargement, mass or evidence of splenic vein thrombosis. PANCREAS: Normal. No CT evidence of acute or chronic pancreatitis. No duct dilation. No mass. GALLBLADDER: Normal CT appearance. No dilation, calcified, or gas-containing stones. Other types of gallstones could be occult on CT and detectable only by ultrasound. BILE DUCTS: Normal. No biliary duct dilation. ADRENAL GLANDS: Normal. No nodule or mass. KIDNEYS AND URETERS: Normal. No hydronephrosis on either side. No mass. Symmetric enhancement. No infarct or CT evidence of acute pyelonephritis. No substantial radiodense stone. Tiny stones and radiolucent stones could be occult on CT. LYMPH NODES: No adenopathy, intraperitoneal, retroperitoneal, pelvic or otherwise APPENDIX: Similar to earlier today. A portion of normal caliber proximal appendix compressed up against the back wall of the cecum but entirety of appendix not clearly delineated COLON: Normal. No sign of acute diverticulitis or other colitis. No annular constricting mass. SMALL BOWEL: Normal. No small bowel dilation or any other sign of small bowel obstruction. No sign of active inflammatory bowel disease. STOMACH / DUODENUM: Grossly normal by CT which has limited sensitivity and specificity for the stomach and duodenum. RETROPERITONEUM: Normal. No acute hemorrhage or inflammatory change. Lymph nodes in a separate dedicated section. OMENTUM, MESENTERY AND PERITONEAL SPACES: Free intraperitoneal air: Negative Free intraperitoneal fluid: Negative Abscess: Negative Other: n/a URINARY BLADDER: Distended but otherwise remains normal PELVIS: The prostate is not significantly enlarged. No pelvic mass, adenopathy or free fluid. VASCULATURE: No abdominal aortic or iliac artery aneurysm. No high grade stenosis of the major abdominal aortic branch vessels. Portal venous system patent. ABDOMINAL WALL: Hernia: Negative Other: No acute or contributory abnormality. IMPRESSION: IV contrast on the present exam could potentially obscure a muscular hematoma but there was no acute hematoma in the right iliacus muscle earlier today The present CT with contrast does not reveal a walled-off abscess in the right iliacus or anywhere else Otherwise, the remains uncertain the exact etiology of the right iliacus muscle edematous enlargement No new or newly evident acute findings with IV contrast As was the case earlier today, I suspect at least a demonstrable normal caliber proximal appendix against the back wall of the cecum but it is difficult to identify the mid and distal appendix. No calcified appendicolith No acute pancreatitis, hydronephrosis/urinary stone or any other acute solid organ findings No gallbladder or biliary duct dilation No perforation or abscess, only trace unchanged abnormal free pelvic fluid MACRO: None Signed by: Imtiaz Aly 08/03/2024 2:40 PM Dictation workstation: [id number] [facility] Work Phone: Radiology Study observation (narrative) [facility] Work Phone: CT Abdomen and Pelvis W cont rast IVOrdered By: Imtiaz Aly on 08-03-2024 [facility] Work Phone: Comprehensive metabolic 2000 panelon 08-03-2024 Albumin BCP dye [Mass/Vol] 4.4 g/dL 3.4 - 5.0 g/dL [facility] ALP [Catalytic activity/Vol] 124 U/L High 33 - 120 U/L [facility] ALT With P-5'-P [Catalytic activity/Vol] 11 U/L 10 - 52 U/L [facility] Comment on above: Patients treated wit h Sulfasalazine may generate falsely decreased results for ALT. Anion gap [Moles/Vol] 29 mmol/L High 10 - 2 0 mmol/L [facility] AST With P-5'-P [Catalytic activity/Vol] 8 U/L Low 9 - 39 U/L [facility] Bilirubin [Mass/Vol] 1.1 mg/dL 0.0 - 1 .2 mg/dL [facility] Calcium [Mass/Vol] 9.3 mg/dL 8.6 - 10. 3 mg/dL [facility] Chloride [Moles/Vol] 100 mmol/L 98 - 10 7 mmol/L [facility] CO2 [Moles/Vol] 7 mmol/L Critically low 21 - 32 mmol/L [facility] Creatinine [Mass/Vol] 0.91 mg/dL 0.50 - 1.30 mg/dL [facility] eGFR - PINF [facility] Comment on above: Calculations of deondre mated GFR are performed using the 2020 CKD-EPI Study Refit equation without the race variable for the IDMS-Traceable creatinine methods. https://jasn.asnjournals.org/content//ASN.04033 87801 Glucose [Mass/Vol] 343 mg/dL High 74 - 99 mg/dL [facility] Potassium [Moles/Vol] 3.9 mmol/L 3.5 - 5.3 mmol/L [facility] Protein [Mass/Vol] 7.5 g/dL 6.4 - 8.2 g/dL [facility] Sodium [Moles/Vol] 132 mmol/L Low 136 - 145 mmol/L [facility] Urea nitrogen [Mass/Vol] 11 mg/dL 6 - 23 mg/dL [facility] Albumin BCP dye [Mass/Vol] 4.4 g/dL Normal 3.4-5.0 [facility] Comment on above: Performed By: #### 2 4323-8 #### TRISH Chirinos ([id number]) [facility] ([facility]) [address] [place] [address] ALP [Catalytic activity/Vol] 124 U/L High 33-120 [facility] Comment on above: Performed By: #### 2 4323-8 #### TRISH Chirinos ([id number]) [facility] ([facility]) [address] [place] [address] ALT With P-5'-P [Catalytic activity/Vol] 11 U/L Normal 10-52 [facility] Comment on above: Result Comment: Lashay ents treated with Sulfasalazine may generate falsely decreased results for ALT. Performed By: #### 2 432-8 #### TRISH Chirinos ([id number]) [facility] ([facility]) [address] [place] [address] 18880 Anion gap [Moles/Vol] 29 mmol/L High 10-20 [facility] Comment on above: Performed By: #### 2 432-8 #### TRIHS Chirinos ([id number]) [facility] ([facility]) [address] [place] [address] 75666 AST With P-5'-P [Catalytic activity/Vol] 8 U/L Low 9-39 [facility] Comment on above: Performed By: #### 2 4323-8 #### TRISH Chirinos ([id number]) [facility] ([facility]) [address] [place] [address] 06892 Bilirubin [Mass/Vol] 1.1 mg/dL Normal 0.0-1.2 [facility] Comment on above: Performed By: #### 2 432-8 #### TRISH Chirinos ([id number]) [facility] ([facility]) [address] [place] [address] 04112 Calcium [Mass/Vol] 9.3 mg/dL Normal 8.6-10.3 [facility] Comment on above: Performed By: #### 2 4323-8 #### TRISH Chirinos ([id number]) [facility] ([facility]) [address] [place] [address] 75288 Chloride [Moles/Vol] 100 mmol/L Normal 98-107 [facility] Comment on above: Performed By: #### 2 4323-8 #### TRISH Chirinos ([id number]) [facility] ([facility]) [address] [place] [address] 58794 CO2 [Moles/Vol] 7 mmol/L Critically low 21-32 [facility] Comment on above: Performed By: #### 2 4323-8 #### TRISH Chirinos ([id number]) [facility] ([facility]) [address] [place] [address] 57759 Creatinine [Mass/Vol] 0.91 mg/dL Normal 0.50-1.30 [facility] Comment on above: Performed By: #### 2 4323-8 #### TRISH Chirinos ([id number]) [facility] ([facility]) [address] [place] [address] 30919 GFR/1.73 sq M.predicted MDRD (S/P/Bld) [Vol rate/Area] mL/min/{1.73_m2} Normal >60 [facility] Comment on above: Result Comment: Calc ulations of estimated GFR are performed using the 2020 CKD-EPI Study Refit equation without the race variable for the IDMS-Traceable creatinine methods. https://jasn.asnjournals.org/content//ASN.70153 88904 Performed By: #### 2 4323-8 #### TRISH Chirinos ([id number]) [facility] ([facility]) [address] [place] [address] 89281 Glucose [Mass/Vol] 343 mg/dL High 74-99 [facility] Comment on above: Performed By: #### 2 4323-8 #### TRISH Chirinos ([id number]) [facility] ([facility]) [address] [place] [address] 86569 Potassium [Moles/Vol] 3.9 mmol/L Normal 3.5-5.3 [facility] Comment on above: Performed By: #### 2 4323-8 #### TRISH Chirinos ([id number]) [facility] ([facility]) [address] [place] [address] 22726 Protein [Mass/Vol] 7.5 g/dL Normal 6.4-8.2 [facility] Comment on above: Performed By: #### 2 4323-8 #### TRISH Chirinos ([id number]) [facility] ([facility]) [address] [place] [address] 78069 Sodium [Moles/Vol] 132 mmol/L Low 136-145 [facility] Comment on above: Performed By: #### 2 4323-8 #### TRISH Chirinos ([id number]) [facility] ([facility]) [address] [place] [address] 50620 Urea nitrogen [Mass/Vol] 11 mg/dL Normal 6-23 [facility] Comment on above: Performed By: #### 2 4323-8 #### TRISH Chirinos ([id number]) [facility] ([facility]) [address] [place] [address] 44336 Creatine Kinaseon 08-03-2024 CK [Catalytic activity/Vol] 66 U/L 0 - 325 U/L [facility] Creatine kinaseon 08-03-2024 CK [Catalytic activity/Vol] 66 U/L Normal 0-325 [facility] Comment on above: Performed By: #### 5 8077-9 #### TRISH Chirinos ([id number]) [facility] ([facility]) [address] [place] [address] 39190 Critical Careon 08-03-2024 JUWAN Casey 08/03/2024 3:25 PM Critical Care Performed by: JUWAN Casey Authorized by: Faby Dinero MD Critical care provider statement: Critical care time (minutes): 45 Critical care time was exclusive of: Separately billable procedures and treating other patients Critical care was necessary to treat or prevent imminent or life-threatening deterioration of the following conditions: Endocrine crisis Critical care was time spent personally by me on the following activities: Blood draw for specimens, development of treatment plan with patient or surrogate, discussions with consultants, evaluation of patient's response to treatment, obtaining history from patient or surrogate, re-evaluation of patient's condition, pulse oximetry, ordering and review of radiographic studies, ordering and review of laboratory studies and ordering and performing treatments and interventions [facility] Work Phone: Critical CareOrdered By: Kodi Dinero on 08-03-2024 [facility] Work Phone: ESR Westergren method (Bld) [Velocity]on 08-03-2024 ESR (Bld) [Velocity] 28 mm/h High 0 - 15 mm/h [facility] Interpretation and review of laboratory results Abnormal [facility] ESR (Bld) [Velocity] 28 mm/h High 0-15 [facility] Comment on above: Performed By: #### 4 537-7 #### TRISH Chirinos ([id number]) [facility] ([facility]) [address] [place] [address] 12497 Extra Urine Varma Tubeon 07-10 Extra Tube Hold for add-ons. [facility] Comment on above: Auto resulted. [facility] Gas panel (BldV)on Anion gap 4 (BldV) [Moles/Vol] 11 mmol/L 10.0 - 25.0 mmol/L [facility] Base excess Calc (BldV) [Moles/Vol] -9.9000 mmol/L Low -2.0 - 3.0 mmol/L [facility] Calcium.ionized (BldV) [Moles/Vol] 1.27 mmol/L 1.10 - 1.33 mmol/L [facility] Chloride (BldV) [Moles/Vol] 108 mmol/L High 98 - 107 mmol/L [facility] CO2 (BldV) [Partial pressure] 31 mm[Hg] Low [facility] Glucose [Mass/Vol] 133 mg/dL High 74 - 99 mg/dL [facility] HCO3 (Bld) [Moles/Vol] 15.3 mmol/L Low 22.0 - 26.0 mmol/L [facility] Hematocrit Est (Bld) [Volume fraction] 38 % Low 41.0 - 52.0 % [facility] Hemoglobin (Bld) [Mass/Vol] 12.6 g/dL Low 13.5 - 17.5 g/dL [facility] Inhaled oxygen concentration 21 % [facility] Interpretation and review of laboratory results Abnormal [facility] Lactate (BldV) [Moles/Vol] 0.7 mmol/L 0.4 - 2.0 mmol/L [facility] Oxygen (BldV) [Partial pressure] 56 mm[Hg] High [facility] Oxygen saturation in Venous blood 91 % High 45 - 75 % [facility] Oxyhemoglobin (BldV) [Mass fraction] 88.9 % High 45.0 - 75.0 % [facility] pH (BldV) 7.3 [pH] Low 7.33 - 7.43 pH [facility] Potassium (BldV) [Moles/Vol] 3.6 mmol/L 3.5 - 5.3 mmol/L [facility] Sodium (BldV) [Moles/Vol] 131 mmol/L Low 136 - 145 mmol/L [facility] Anion gap 4 (BldV) [Moles/Vol] 11.0 mmol/L Normal 10.0-25.0 [facility] Comment on above: Performed By: #### 2 6569-4 ####TRISH Chirinos ([id number])[facility] ([facility])[address] [place] [address] Base excess Calc (BldV) [Moles/Vol] -9.9000 mmol/L Low -2.0-3.0 [facility] Comment on above: Performed By: #### 2 6299-4 ####TRISH Chirinos ([id number])[facility] ([facility])[address] [place] [address] 58175 Calcium.ionized (BldV) [Moles/Vol] 1.27 mmol/L Normal 1.10-1.33 [facility] Comment on above: Performed By: #### 2 9679-4 ####TRISH Chirinos ([id number])[facility] ([facility])[address] [place] [address] Chloride (BldV) [Moles/Vol] 108 mmol/L High 98-107 [facility] Comment on above: Performed By: #### 2 4339-4 ####TRISH Chirinos ([id number])[facility] ([facility])[address] [place] [address] CO2 (BldV) [Partial pressure] 31 mm Hg Low 41-51 [facility] Comment on above: Performed By: #### 2 4339-4 ####TRISH Chirinos ([id number])[facility] ([facility])[address] [place] [address] Glucose [Mass/Vol] 133 mg/dL High 74-99 [facility] Comment on above: Performed By: #### 2 4339-4 ####TRISH Chirinos ([id number])[facility] ([facility] [place] [place] [address] HCO3 (Bld) [Moles/Vol] 15.3 mmol/L Low 22.0-26.0 [facility] Comment on above: Performed By: #### 2 4339-4 ####TRISH Chirinos ([id number])[facility] ([facility] [place] [place] [address] Hematocrit Est (Bld) [Volume fraction] 38.0 % Low 41.0-52.0 [facility] Comment on above: Performed By: #### 2 4339-4 ####TRISH Chirinos ([id number])[facility] ([facility])[address] [place] [address] Hemoglobin (Bld) [Mass/Vol] 12.6 g/dL Low 13.5-17.5 [facility] Comment on above: Performed By: #### 2 4339-4 ####TRISH Chirinos ([id number])[facility] ([facility])[address] [place] [address] Inhaled oxygen concentration 21 % Normal [facility] Comment on above: Performed By: #### 2 4339-4 ####TRISH Chirinos ([id number])[facility] ([facility])[address] [place] [address] Lactate (BldV) [Moles/Vol] 0.7 mmol/L Normal 0.4-2.0 [facility] Comment on above: Performed By: #### 2 4339-4 ####TRISH Chirinos ([id number])[facility] ([facility])[address] [place] [address] Oxygen (BldV) [Partial pressure] 56 mm Hg High 35-45 [facility] Comment on above: Performed By: #### 2 4339-4 ####TRISH Chirinos ([id number])[facility] ([facility])[address] [place] [address] Oxygen saturation in Venous blood 91 % High 45-75 [facility] Comment on above: Performed By: #### 2 4339-4 ####TRISH Chirinos ([id number])[facility] ([facility])[address] [place] [address] Oxyhemoglobin (BldV) [Mass fraction] 88.9 % High 45.0-75.0 [facility] Comment on above: Performed By: #### 2 4339-4 ####TRISH Chirinos ([id number])[facility] ([facility])[address] [place] [address] pH (BldV) 7.30 [pH] Low 7.33-7.43 [facility] Comment on above: Performed By: #### 2 4339-4 ####TRISH Chirinos ([id number])[facility] ([facility])[address] [place] [address] Potassium (BldV) [Moles/Vol] 3.6 mmol/L Normal 3.5-5.3 [facility] Comment on above: Performed By: #### 2 2479-4 ####TRISH Chirinos ([id number])[facility] ([facility])[address] [place] [address] Sodium (BldV) [Moles/Vol] 131 mmol/L Low 136-145 [facility] Comment on above: Performed By: #### 2 4339-4 ####TRISH Chirinos ([id number])[facility] ([facility])[address] [id number] Anion gap 4 (BldV) [Moles/Vol] 20 mmol/L 10.0 - 25.0 mmol/L [facility] Base excess Calc (BldV) [Moles/Vol] -17.18562 mmol/L Low -2.0 - 3.0 mmol/L [facility] Calcium.ionized (BldV) [Moles/Vol] 1.31 mmol/L 1.10 - 1.33 mmol/L [facility] Chloride (BldV) [Moles/Vol] 106 mmol/L 98 - 107 mmol/L [facility] CO2 (BldV) [Partial pressure] 28 mm[Hg] Low [facility] Glucose [Mass/Vol] 206 mg/dL High 74 - 99 mg/dL [facility] HCO3 (Bld) [Moles/Vol] 10 mmol/L Low 22.0 - 26.0 mmol/L [facility] Hematocrit Est (Bld) [Volume fraction] 40 % Low 41.0 - 52.0 % [facility] Hemoglobin (Bld) [Mass/Vol] 13.2 g/dL Low 13.5 - 17.5 g/dL [facility] Inhaled oxygen concentration 21 % [facility] Interpretation and review of laboratory results Abnormal [facility] Lactate (BldV) [Moles/Vol] 0.9 mmol/L 0.4 - 2.0 mmol/L [facility] Oxygen (BldV) [Partial pressure] 26 mm[Hg] Low [facility] Oxygen saturation in Venous blood 43 % Low 45 - 75 % [facility] Oxyhemoglobin (BldV) [Mass fraction] 42.5 % Low 45.0 - 75.0 % [facility] pH (BldV) 7.16 [pH] Critically low 7.33 - 7.43 pH [facility] Potassium (BldV) [Moles/Vol] 3.3 mmol/L Low 3.5 - 5.3 mmol/L [facility] Sodium (BldV) [Moles/Vol] 133 mmol/L Low 136 - 145 mmol/L [facility] Anion gap 4 (BldV) [Moles/Vol] 20.0 mmol/L Normal 10.0-25.0 [facility] Comment on above: Performed By: #### 2 4339-4 ####TRISH Chirinos ([id number])[facility] ([facility] [place] [place] [address] Base excess Calc (BldV) [Moles/Vol] -17.40164 mmol/L Low -2.0-3.0 [facility] Comment on above: Performed By: #### 2 4339-4 ####TRISH Chirinos ([id number])[facility] ([facility] [place] [address] Calcium.ionized (BldV) [Moles/Vol] 1.31 mmol/L Normal 1.10-1.33 [facility] Comment on above: Performed By: #### 2 4339-4 ####TRISH Chirinos ([id number])[facility] ([facility] [place] [place] [address] Chloride (BldV) [Moles/Vol] 106 mmol/L Normal 98-107 [facility] Comment on above: Performed By: #### 2 4339-4 ####TRISH Chirinos ([id number])[facility] ([facility] [place] [address] CO2 (BldV) [Partial pressure] 28 mm Hg Low 41-51 [facility] Comment on above: Performed By: #### 2 4339-4 ####TRISH Chirinos ([id number])[facility] ([facility] [place] [address] Glucose [Mass/Vol] 206 mg/dL High 74-99 [facility] Comment on above: Performed By: #### 2 4339-4 ####TRISH Chirinos ([id number])[facility] ([facility] [place] [place] [address] HCO3 (Bld) [Moles/Vol] 10.0 mmol/L Low 22.0-26.0 [facility] Comment on above: Performed By: #### 2 4339-4 ####TRISH Chirinos ([id number])[facility] ([facility])[address] [place] [address] Hematocrit Est (Bld) [Volume fraction] 40.0 % Low 41.0-52.0 [facility] Comment on above: Performed By: #### 2 4339-4 ####TRISH Chirinos ([id number])[facility] ([facility] [place] [place] [address] Hemoglobin (Bld) [Mass/Vol] 13.2 g/dL Low 13.5-17.5 [facility] Comment on above: Performed By: #### 2 4339-4 ####TRISH Chirinos ([id number])[facility] ([facility] [place] [place] [address] Inhaled oxygen concentration 21 % Normal [facility] Comment on above: Performed By: #### 2 4339-4 ####TRISH Chirinos ([id number])[facility] ([facility] [place] [place] [address] Lactate (BldV) [Moles/Vol] 0.9 mmol/L Normal 0.4-2.0 [facility] Comment on above: Performed By: #### 2 4339-4 ####TRISH Chirinos ([id number])[facility] ([facility] [place] [place] [address] Oxygen (BldV) [Partial pressure] 26 mm Hg Low 35-45 [facility] Comment on above: Performed By: #### 2 4339-4 ####TRISH Chirinos ([id number])[facility] ([facility] [place] [address] Oxygen saturation in Venous blood 43 % Low 45-75 [facility] Comment on above: Performed By: #### 2 4339-4 ####TRISH Chirinos ([id number])[facility] ([facility])[address] [place] [address] Oxyhemoglobin (BldV) [Mass fraction] 42.5 % Low 45.0-75.0 [facility] Comment on above: Performed By: #### 2 4339-4 ####TRISH Chirinos ([id number])[facility] ([facility])[address] [place] [address] pH (BldV) 7.16 [pH] Critically low 7.33-7.43 [facility] Comment on above: Performed By: #### 2 4339-4 ####TRISH Chirinos ([id number])[facility] ([facility])[address] [place] [address] Potassium (BldV) [Moles/Vol] 3.3 mmol/L Low 3.5-5.3 [facility] Comment on above: Performed By: #### 2 4339-4 ####RTISH Chirinos ([id number])[facility] ([facility])[address] [place] [address] Sodium (BldV) [Moles/Vol] 133 mmol/L Low 136-145 [facility] Comment on above: Performed By: #### 2 4339-4 ####TRISH Chirinos ([id number])[facility] ([facility])[address] [place] [address]64 Base excess Calc (BldV) [Moles/Vol] -19.70137 mmol/L Low -2.0 - 3.0 mmol/L [facility] CO2 (BldV) [Partial pressure] 23 mm[Hg] Low [facility] HCO3 (Bld) [Moles/Vol] 7.7 mmol/L Low 22.0 - 26.0 mmol/L [facility] Inhaled oxygen concentration 21 % [facility] Interpretation and review of laboratory results Abnormal [facility] Oxygen (BldV) [Partial pressure] 32 mm[Hg] Low [facility] Oxygen saturation in Venous blood 51 % 45 - 75 % [facility] Oxyhemoglobin (BldV) [Mass fraction] 50.1 % 45.0 - 75.0 % [facility] pH (BldV) 7.13 [pH] Critically low 7.33 - 7.43 pH [facility] Base excess Calc (BldV) [Moles/Vol] -19.65340 mmol/L Low -2.0-3.0 [facility] Comment on above: Performed By: #### 5 8077-9 #### TRISH Chirinos ([id number]) [facility] ([facility]) [address] [place] [address] CO2 (BldV) [Partial pressure] 23 mm Hg Low 41-51 [facility] Comment on above: Performed By: #### 5 8077-9 #### TRISH Chirinos ([id number]) [facility] ([facility]) [address] [place] [address] 24312 HCO3 (Bld) [Moles/Vol] 7.7 mmol/L Low 22.0-26.0 [facility] Comment on above: Performed By: #### 5 8077-9 #### TRISH Chirinos ([id number]) [facility] ([facility]) [address] [place] [address] 60048 Inhaled oxygen concentration 21 % Normal [facility] Comment on above: Performed By: #### 5 8077-9 #### TRISH Chirinos ([id number]) [facility] ([facility]) [address] [place] [address] 87347 Oxygen (BldV) [Partial pressure] 32 mm Hg Low 35-45 [facility] Comment on above: Performed By: #### 5 8077-9 #### TRISH Chirinos ([id number]) [facility] ([facility]) [address] [place] [address] 42952 Oxygen saturation in Venous blood 51 % Normal 45-75 [facility] Comment on above: Performed By: #### 5 8077-9 #### TRISH Chirinos ([id number]) [facility] ([facility]) [address] [place] [address] 29404 Oxyhemoglobin (BldV) [Mass fraction] 50.1 % Normal 45.0-75.0 [facility] Comment on above: Performed By: #### 5 8077-9 #### TRISH Chirinos ([id number]) [facility] ([facility]) [address] [place] [address] pH (BldV) 7.13 [pH] Critically low 7.33-7.43 [facility] Comment on above: Performed By: #### 5 8077-9 #### TRISH Chirinos ([id number]) [facility] ([facility]) [address] [place] [address]2965 Anion gap 4 (BldV) [Moles/Vol] 27 mmol/L High 10.0 - 25.0 mmol/L [facility] Base excess Calc (BldV) [Moles/Vol] -22.06840 mmol/L Low -2.0 - 3.0 mmol/L [facility] Calcium.ionized (BldV) [Moles/Vol] 1.27 mmol/L 1.10 - 1.33 mmol/L [facility] Chloride (BldV) [Moles/Vol] 104 mmol/L 98 - 107 mmol/L [facility] CO2 (BldV) [Partial pressure] 17 mm[Hg] Low [facility] Glucose [Mass/Vol] 329 mg/dL High 74 - 99 mg/dL [facility] HCO3 (Bld) [Moles/Vol] 5.3 mmol/L Low 22.0 - 26.0 mmol/L [facility] Hematocrit Est (Bld) [Volume fraction] 42 % 41.0 - 52.0 % [facility] Hemoglobin (Bld) [Mass/Vol] 14.1 g/dL 13.5 - 17.5 g/dL [facility] Inhaled oxygen concentration 21 % [facility] Interpretation and review of laboratory results Abnormal [facility] Lactate (BldV) [Moles/Vol] 0.8 mmol/L 0.4 - 2.0 mmol/L [facility] Oxygen (BldV) [Partial pressure] 60 mm[Hg] High [facility] Oxygen saturation in Venous blood 89 % High 45 - 75 % [facility] Oxyhemoglobin (BldV) [Mass fraction] 86.9 % High 45.0 - 75.0 % [facility] pH (BldV) 7.1 [pH] Critically low 7.33 - 7.43 pH [facility] Potassium (BldV) [Moles/Vol] 3.8 mmol/L 3.5 - 5.3 mmol/L [facility] Sodium (BldV) [Moles/Vol] 132 mmol/L Low 136 - 145 mmol/L [facility] Anion gap 4 (BldV) [Moles/Vol] 27.0 mmol/L High 10.0-25.0 [facility] Comment on above: Performed By: #### 5 8077-9 #### TRISH Chirinos ([id number]) [facility] ([facility]) [address] [place] [address] 98386 Base excess Calc (BldV) [Moles/Vol] -22.33104 mmol/L Low -2.0-3.0 [facility] Comment on above: Performed By: #### 5 8077-9 #### TRISH Chirinos ([id number]) [facility] ([facility]) [address] [place] [address] 39338 Calcium.ionized (BldV) [Moles/Vol] 1.27 mmol/L Normal 1.10-1.33 [facility] Comment on above: Performed By: #### 5 8077-9 #### TRISH Chirinos ([id number]) [facility] ([facility]) [address] [place] [address] 91470 Chloride (BldV) [Moles/Vol] 104 mmol/L Normal 98-107 [facility] Comment on above: Performed By: #### 5 8077-9 #### TRISH Chirinos ([id number]) [facility] ([facility]) [address] [place] [address] 93927 CO2 (BldV) [Partial pressure] 17 mm Hg Low 41-51 [facility] Comment on above: Performed By: #### 5 8077-9 #### TRISH Chirinos ([id number]) [facility] ([facility]) [address] [place] [address] 55759 Glucose [Mass/Vol] 329 mg/dL High 74-99 [facility] Comment on above: Performed By: #### 5 8077-9 #### TRISH Chirinos ([id number]) [facility] ([facility]) [address] [place] [address] 37552 HCO3 (Bld) [Moles/Vol] 5.3 mmol/L Low 22.0-26.0 [facility] Comment on above: Performed By: #### 5 8077-9 #### TRISH Chirinos ([id number]) [facility] ([facility]) [address] [place] [address] 76345 Hematocrit Est (Bld) [Volume fraction] 42.0 % Normal 41.0-52.0 [facility] Comment on above: Performed By: #### 5 8077-9 #### TRISH Chirinos ([id number]) [facility] ([facility]) [address] [place] [address] 89642 Hemoglobin (Bld) [Mass/Vol] 14.1 g/dL Normal 13.5-17.5 [facility] Comment on above: Performed By: #### 5 8077-9 #### TRISH Chirinos ([id number]) [facility] ([facility]) [address] [place] [address] 80418 Inhaled oxygen concentration 21 % Normal [facility] Comment on above: Performed By: #### 5 8077-9 #### RTISH Chirinos ([id number]) [facility] ([facility]) [address] [place] [address] 15332 Lactate (BldV) [Moles/Vol] 0.8 mmol/L Normal 0.4-2.0 [facility] Comment on above: Performed By: #### 5 8077-9 #### TRISH Chirinos ([id number]) [facility] ([facility]) [address] [place] [address] 45064 Oxygen (BldV) [Partial pressure] 60 mm Hg High 35-45 [facility] Comment on above: Performed By: #### 5 8077-9 #### TRISH Chirinos ([id number]) [facility] ([facility]) [address] [place] [address] 71186 Oxygen saturation in Venous blood 89 % High 45-75 [facility] Comment on above: Performed By: #### 5 8077-9 #### TRISH Chirinos ([id number]) [facility] ([facility]) [address] [place] [address] 13586 Oxyhemoglobin (BldV) [Mass fraction] 86.9 % High 45.0-75.0 [facility] Comment on above: Performed By: #### 5 8077-9 #### TRISH Chirinos ([id number]) [facility] ([facility]) [address] [place] [address] 91422 pH (BldV) 7.10 [pH] Critically low 7.33-7.43 [facility] Comment on above: Performed By: #### 5 8077-9 #### TRISH Chirinos ([id number]) [facility] ([facility]) [address] [place] [address] 76491 Potassium (BldV) [Moles/Vol] 3.8 mmol/L Normal 3.5-5.3 [facility] Comment on above: Performed By: #### 5 8077-9 #### TRISH Chirinos ([id number]) [facility] ([facility]) [address] [place] [address] 28643 Sodium (BldV) [Moles/Vol] 132 mmol/L Low 136-145 [facility] Comment on above: Performed By: #### 5 8077-9 #### TRISH Chirinos ([id number]) [facility] ([facility]) [address] [place] [address] 78893 Glucose Test strip manual (B ld) [Mass/Vol]on 08-03-2024 Glucose [Mass/Vol] 182 mg/dL High 74 - 99 mg/dL [facility] Interpretation and review of laboratory results Abnormal [facility] Glucose [Mass/Vol] 182 mg/dL High 74-99 [facility] Comment on above: Performed By: #### 2 341-6 ####TRISH Chirinos ([id number])[facility] ([facility])[address] [place], [place] [address], [place] [address] Glucose [Mass/Vol] 195 mg/dL High 74 - 99 mg/dL [facility] Interpretation and review of laboratory results Abnormal [facility] Glucose [Mass/Vol] 195 mg/dL High 74-99 [facility] Comment on above: Performed By: #### 2 341-6 ####TRISH Chirinos ([id number])[facility] ([facility])[address] [place], [place] [address], [place] [address] Glucose [Mass/Vol] 164 mg/dL High 74 - 99 mg/dL [facility] Interpretation and review of laboratory results Abnormal [facility] Glucose [Mass/Vol] 164 mg/dL High 74-99 [facility] Comment on above: Performed By: #### 2 341-6 ####TRISH Chirinos ([id number])[facility] ([facility])[address] [place], [place] [address], [place] [address] Glucose [Mass/Vol] 111 mg/dL High 74 - 99 mg/dL [facility] Interpretation and review of laboratory results Abnormal [facility] Glucose [Mass/Vol] 111 mg/dL High 74-99 [facility] Comment on above: Performed By: #### 2 341-6 ####TRISH Chirinos ([id number])[facility] ([facility])[address] [place], [place] [address], [place] [address] Glucose [Mass/Vol] 172 mg/dL High 74 - 99 mg/dL [facility] Interpretation and review of laboratory results Abnormal [facility] Glucose [Mass/Vol] 172 mg/dL High 74-99 [facility] Comment on above: Performed By: #### 2 341-6 ####TRISH Chirinos ([id number])[facility] ([facility])[address] [place], [place] [address], [place] [address] Glucose [Mass/Vol] 129 mg/dL High 74 - 99 mg/dL [facility] Interpretation and review of laboratory results Abnormal [facility] Glucose [Mass/Vol] 129 mg/dL High 74-99 [facility] Comment on above: Performed By: #### 2 341-6 ####TRISH Chirinos ([id number])[facility] ([facility] [place] [address] Glucose [Mass/Vol] 130 mg/dL High 74 - 99 mg/dL [facility] Interpretation and review of laboratory results Abnormal [facility] Glucose [Mass/Vol] 130 mg/dL High 74-99 [facility] Comment on above: Performed By: #### 2 341-6 ####TRISH Chirinos ([id number])[facility] ([facility] [place] [place] [address] Glucose [Mass/Vol] 222 mg/dL High 74 - 99 mg/dL [facility] Interpretation and review of laboratory results Abnormal [facility] Glucose [Mass/Vol] 222 mg/dL High 74-99 [facility] Comment on above: Performed By: #### 2 341-6 ####TRISH Chirinos ([id number])[facility] ([facility] [place] [address] [facility] [place] [address] Glucose [Mass/Vol] 181 mg/dL High 74 - 99 mg/dL [facility] Interpretation and review of laboratory results Abnormal [facility] Glucose [Mass/Vol] 181 mg/dL High 74-99 [facility] Comment on above: Performed By: #### 2 341-6 ####TRISH Chirinos ([id number])[facility] ([facility] [address] [facility] [place] [address] Glucose [Mass/Vol] 195 mg/dL High 74 - 99 mg/dL [facility] Interpretation and review of laboratory results Abnormal [facility] Glucose [Mass/Vol] 195 mg/dL High 74-99 [facility] Comment on above: Performed By: #### 2 341-6 ####TRISH Chirinos ([id number])[facility] ([facility] [place] [address] Glucose [Mass/Vol] 218 mg/dL High 74 - 99 mg/dL [facility] Interpretation and review of laboratory results Abnormal [facility] Glucose [Mass/Vol] 218 mg/dL High 74-99 [facility] Comment on above: Performed By: #### 5 8077-9 #### TRISH Chirinos ([id number]) [facility] ([facility]) [address] [place] [address] 27807 Glucose [Mass/Vol] 278 mg/dL High 74 - 99 mg/dL [facility] Glucose [Mass/Vol] 269 mg/dL High 74 - 99 mg/dL [facility] Interpretation and review of laboratory results Abnormal [facility] Glucose [Mass/Vol] 293 mg/dL High 74 - 99 mg/dL [facility] Glucose [Mass/Vol] 269 mg/dL High 74-99 [facility] Comment on above: Performed By: #### 5 8077-9 #### TRISH Chirinos ([id number]) [facility] ([facility]) [address] [place] [address] 19484 Glucose [Mass/Vol] 278 mg/dL High 74-99 [facility] Comment on above: Performed By: #### 5 8077-9 #### TRISH Chirinos ([id number]) [facility] ([facility]) [address] [place] [address] 41243 Glucose [Mass/Vol] 293 mg/dL High 74-99 [facility] Comment on above: Performed By: #### 5 8077-9 #### TRISH Chirinos ([id number]) [facility] ([facility]) [address] [place] [address] 60810 Lactateon 08-03-2024 Lactate [Moles/Vol] 0.8 mmol/L 0.4 - 2. 0 mmol/L [facility] Lactate [Moles/Vol] 0.8 mmol/L Normal 0.4-2.0 [facility] Comment on above: Order Comment: Venip uncture immediately after or during the administration of Metamizole may lead to falsely low results. Testing should be performed immediately prior to Metamizole dosing. Performed By: #### 2 524-7 #### TRISH Chirinos ([id number]) [facility] ([facility]) [address] [place] [address] 62337 Lactate [Moles/Vol]on 2024 Interpretation and review of laboratory results Normal [facility] Venipuncture immedia tely after or during the administration of Metamizole may lead to falsely low results. Testing should be performed immediately prior to Metamizole dosing. [facility] Magnesiumon 08-03-2024 Magnesium [Mass/Vol] 1.83 mg/dL 1.60 - 2.40 mg/dL [facility] Magnesium [Mass/Vol] 1.83 mg/dL Normal 1.60-2.40 [facility] Comment on above: Performed By: #### 1 9123-9 #### TRISH Chirinos ([id number]) [facility] ([facility]) [address] [place] [address] 14733 No Panel Informationon 08-03 Interpretation and review of laboratory results Normal [facility] Interpretation and review of laboratory results Abnormal [facility] Phosphateon 08-03-2024 Phosphate [Mass/Vol] 2.9 mg/dL Normal 2.5-4.9 [facility] Comment on above: Result Comment: The performance characteristics of phosphorus testing in heparinized plasma have been validated by the individual laboratory site where testing is performed. Testing on heparinized plasma is not approved by the FDA; however, such approval is not necessary. Performed By: #### 5 8077-9 #### TRISH Chirinos ([id number]) [facility] ([facility]) [address] [place] [address] 84475 Phosphoruson 08-03-2024 Phosphate [Mass/Vol] 2.9 mg/dL 2.5 - 4 .9 mg/dL [facility] Comment on above: The performance clari acteristics of phosphorus testing in heparinized plasma have been validated by the individual laboratory site where testing is performed. Testing on heparinized plasma is not approved by the FDA; however, such approval is not necessary. US SCROTUM WITH DOPPLERon US SCROTUM WITH DOPPLER STUDY: Scrotal Ultrasound; 08/03/2024 9:48 am. INDICATION: Right testicular pain. COMPARISON: CT A/P 08/03/2024. ACCESSION NUMBER(S): [id number] ORDERING CLINICIAN: LAKESHA MENDOZA TECHNIQUE: Ultrasound of the scrotum and testicular spectral doppler evaluation performed. FINDINGS: The right testicle measures 5.1 x 2.3 x 3.5 cm. It demonstrates a normal homogeneous echotexture. Normal color and spectral Doppler flow is demonstrated. The right epididymal head measures 0.9 x 0.9 x 0.7 cm and demonstrates normal echogenicity. The left testicle measures 4.6 x 2.9 x 2.8 cm. It demonstrates a normal homogeneous echotexture. Normal color and spectral Doppler flow is demonstrated. The left epididymal head measures 1.2 x 0.9 x 0.8 cm and demonstrates normal echogenicity. IMPRESSION: Unremarkable scrotal ultrasound. Normal testicular spectral doppler evaluation. Signed by Sylvie Yin MD [facility] US Scrotum and testicleon STUDY: Scrotal Ultrasound; 08/03/2024 9:48 am. INDICATION: Right testicular pain. COMPARISON: CT A/P 08/03/2024. ACCESSION NUMBER(S): [id number] ORDERING CLINICIAN: LAKESHA MENDOZA TECHNIQUE: Ultrasound of the scrotum and testicular spectral doppler evaluation performed. FINDINGS: The right testicle measures 5.1 x 2.3 x 3.5 cm. It demonstrates a normal homogeneous echotexture. Normal color and spectral Doppler flow is demonstrated. The right epididymal head measures 0.9 x 0.9 x 0.7 cm and demonstrates normal echogenicity. The left testicle measures 4.6 x 2.9 x 2.8 cm. It demonstrates a normal homogeneous echotexture. Normal color and spectral Doppler flow is demonstrated. The left epididymal head measures 1.2 x 0.9 x 0.8 cm and demonstrates normal echogenicity. TELERADIOLOGY Sylvie Yin MD - 08/03/2024 STUDY: Scrotal Ultrasound; 08/03/2024 9:48 am. INDICATION: Right testicular pain. COMPARISON: CT A/P 08/03/2024. ACCESSION NUMBER(S): [id number] ORDERING CLINICIAN: LAKESHA MENDOZA TECHNIQUE: Ultrasound of the scrotum and testicular spectral doppler evaluation performed. FINDINGS: The right testicle measures 5.1 x 2.3 x 3.5 cm. It demonstrates a normal homogeneous echotexture. Normal color and spectral Doppler flow is demonstrated. The right epididymal head measures 0.9 x 0.9 x 0.7 cm and demonstrates normal echogenicity. The left testicle measures 4.6 x 2.9 x 2.8 cm. It demonstrates a normal homogeneous echotexture. Normal color and spectral Doppler flow is demonstrated. The left epididymal head measures 1.2 x 0.9 x 0.8 cm and demonstrates normal echogenicity. IMPRESSION: Unremarkable scrotal ultrasound. Normal testicular spectral doppler evaluation. Signed by Sylvie Yin MD [facility] Work Phone: Radiology Study observation (narrative) [facility] Work Phone: US Scrotum and testicleOrder ed By: Sylvie Yin on 08-03-2024 [facility] Work Phone: Urinalysis complete W Reflex Culture panel (U)on 08-03-2024 Appearance (U) Clear Clear [facility] Bilirubin (U) [Mass/Vol] Negative NEGATIVE [facility] Color (U) Light-Yellow Light-Bucks ow, Yellow, Dark-Yello w [facility] Glucose Auto test strip (U) [Mass/Vol] OVER (4+) Abnormal Normal mg/dL [facility] Interpretation and review of laboratory results Abnormal [facility] Ketones (U) [Mass/Vol] OVER (4+) Abnormal NEGAT ALEJANDRA mg/dL [facility] Leukocyte esterase Auto test strip Ql (U) Negative NEGATIVE [facility] Mucus Auto (Urine sed) [#/Area] FEW Reference range not establishe d. /LPF [facility] Nitrite Auto test strip Ql (U) Negative NEGATIVE [facility] pH (U) 5 [pH] 5.0, 5.5, 6.0, 6.5, 7.0, 7.5, 8.0 [facility] Protein (U) [Mass/Vol] 30 (1+) Abnormal NEGAT ALEJANDRA, 10 (TRACE), 20 (TRACE) mg/dL [facility] RBC (U) [#/Vol] Negative NEGATIVE [facility] RBC Auto (Urine sed) [#/Area] 1-2 NONE, 1-2, 3-5 /HPF [facility] Specific gravity (U) [Rel density] 1.036 Abnormal 1.005 - 1.035 [facility] Urobilinogen (U) [Mass/Vol] Normal Normal mg/dL [facility] WBC Auto (Urine sed) [#/Area] 1-5 1-5, NONE /HPF [facility] OVER is reported whe n the result is greater than the clinically reportable range. [facility] Appearance (U) Clear Normal Clear [facility] Comment on above: Order Comment: OVER is reported when the result is greater than the clinically reportable range. Performed By: #### 5 8077-9 #### TRISH Chirinos ([id number]) [facility] ([facility]) [address] [place] [address] 97280 Bilirubin (U) [Mass/Vol] Negative Normal NEGATIVE [facility] Comment on above: Order Comment: OVER is reported when the result is greater than the clinically reportable range. Performed By: #### 5 8077-9 #### TRISH Chirinos ([id number]) [facility] ([facility]) [address] [place] [address] Color (U) Light-Yellow Normal Light-Bucks ow, Yellow, Dark-Yello w [facility] Comment on above: Order Comment: OVER is reported when the result is greater than the clinically reportable range. Performed By: #### 5 8077-9 #### TRISH Chirinos ([id number]) [facility] ([facility]) [address] [place] [address] 68768 Glucose Auto test strip (U) [Mass/Vol] OVER (4+) Abnormal Normal [facility] Comment on above: Order Comment: OVER is reported when the result is greater than the clinically reportable range. Performed By: #### 5 8077-9 #### TRISH Chirinos ([id number]) [facility] ([facility]) [address] [place] [address] 34944 Ketones (U) [Mass/Vol] OVER (4+) Abnormal NEGATIVE Un [facility] Comment on above: Order Comment: OVER is reported when the result is greater than the clinically reportable range. Performed By: #### 5 8077-9 #### TRISH Chirinos ([id number]) [facility] ([facility]) [address] [place] [address] 18303 Leukocyte esterase Auto test strip Ql (U) Negative Normal NEGATIVE [facility] Comment on above: Order Comment: OVER is reported when the result is greater than the clinically reportable range. Performed By: #### 5 8077-9 #### TRISH Chirinos ([id number]) [facility] ([facility]) [address] [place] [address] 84482 Mucus Auto (Urine sed) [#/Area] FEW Normal Reference range not establishe d. [facility] Comment on above: Performed By: #### 5 8077-9 #### TRISH Chirinos ([id number]) [facility] ([facility]) [address] [place] [address] 58901 Nitrite Auto test strip Ql (U) Negative Normal NEGATIVE [facility] Comment on above: Order Comment: OVER is reported when the result is greater than the clinically reportable range. Performed By: #### 5 8077-9 #### TRISH Chirinos ([id number]) [facility] ([facility]) [address] [place] [address] 63903 pH (U) 5.0 [pH] Normal 5.0, 5.5, 6.0, 6.5, 7.0, 7.5, 8.0 [facility] Comment on above: Order Comment: OVER is reported when the result is greater than the clinically reportable range. Performed By: #### 5 8077-9 #### TRISH Chirinos ([id number]) [facility] ([facility]) [address] [place] [address] 60978 Protein (U) [Mass/Vol] 30 (1+) Abnormal NEGAT ALEJANDRA, 10 (TRACE), 20 (TRACE) [facility] Comment on above: Order Comment: OVER is reported when the result is greater than the clinically reportable range. Performed By: #### 5 8077-9 #### TRISH Chirinos ([id number]) [facility] ([facility]) [address] [place] [address] 49762 RBC (U) [#/Vol] Negative Normal NEGATIVE [facility] Comment on above: Order Comment: OVER is reported when the result is greater than the clinically reportable range. Performed By: #### 5 8077-9 #### TRISH Chirinos ([id number]) [facility] ([facility]) [address] [place] [address] 26343 RBC Auto (Urine sed) [#/Area] 1-2 Normal NONE, 1-2, 3-5 [facility] Comment on above: Performed By: #### 5 8077-9 #### TRISH Chirinos ([id number]) [facility] ([facility]) [address] [place] [address] 47813 Specific gravity (U) [Rel density] 1.036 Normal 1.005-1.03 5 [facility] Comment on above: Order Comment: OVER is reported when the result is greater than the clinically reportable range. Performed By: #### 5 8077-9 #### TRISH Chirinos ([id number]) [facility] ([facility]) [address] [place] [address] 23069 Urobilinogen (U) [Mass/Vol] Normal Normal Normal [facility] Comment on above: Order Comment: OVER is reported when the result is greater than the clinically reportable range. Performed By: #### 5 8077-9 #### TRISH Chirinos ([id number]) [facility] ([facility]) [address] [place] [address] 01548 WBC Auto (Urine sed) [#/Area] 1-5 Normal 1-5, NONE [facility] Comment on above: Performed By: #### 5 8077-9 #### TRISH Chirinos ([id number]) [facility] ([facility]) [address] [place] [address] HbA1c HPLC (Bld) [Mass fract ion]on 07-31-2024 HbA1c (Bld) [Mass fraction] Hemoglobin A1c/Hemoglobin.total in Blood by HPLC [facility] No Panel Informationon 07-31 Bedside Glucose 000 Critically high [facility] POCT Hemoglobin A1con 2023 HbA1c (Bld) [Mass fraction] 13.2 g/dL Abnormal 4 - 7 g/dL [facility] Interpretation and review of laboratory results Abnormal [facility] BASIC METABOLIC PANLon 09-14 Anion gap [Moles/Vol] 5 mmol/L Normal 5-15 [facility] Comment on above: Performed By: #### 8 0334-6 #### [facility] ([id number]) [address] [place] [address] 57250 Calcium [Mass/Vol] 8.9 mg/dL Normal 8.5-10.5 [facility] Comment on above: Performed By: #### 8 0334-6 #### [facility] ([id number]) [address] [place] [address] 96365 Chloride [Moles/Vol] 104 mmol/L Normal 98-109 [facility] Comment on above: Performed By: #### 8 0334-6 #### [facility] ([id number]) [address] [place] [address] 72874 CO2 [Moles/Vol] 27 mmol/L Normal 22-32 [facility] Comment on above: Performed By: #### 8 0334-6 #### [facility] ([id number]) [address] [place] [address] 52539 Creatinine [Mass/Vol] 0.50 mg/dL Low 0.60-1.30 [facility] Comment on above: Result Comment: METH OD TRACEABLE TO IDMS STANDARD Performed By: #### 8 0334-6 #### [facility] ([id number]) [address] [place] [address] eGFR (CKD-EPI) NON-RACE DEPENDENT >90 Normal >59 [facility] Comment on above: Result Comment: Reported eGFR is based on the CKD-EPI 2020 equation that does not use a race coefficient. Performed By: #### 8 0334-6 #### [facility] ([id number]) [address] [place] [address] Glucose [Mass/Vol] 198 mg/dL High 65-99 [facility] Comment on above: Performed By: #### 8 0334-6 #### [facility] ([id number]) [address] [place] [address] Potassium [Moles/Vol] 3.4 mmol/L Low 3.5-5.0 [facility] Comment on above: Performed By: #### 8 0334-6 #### [facility] ([id number]) [address] [place] [address] Sodium [Moles/Vol] 136 mmol/L Normal 134-146 [facility] Comment on above: Performed By: #### 8 0334-6 #### [facility] ([id number]) [address] [place] [address] Urea nitrogen [Mass/Vol] 13 mg/dL Normal 5-23 [facility] Comment on above: Performed By: #### 8 0334-6 #### [facility] ([id number]) [address] [place] [address] Beta hydroxybutyrate [Moles/ Vol]on 09-15-2023 BetaHydroxybutyrate 0.43 mmol/L High 0.02-0.27 [facility] Comment on above: Performed By: #### 8 0334-6 #### [facility] ([id number]) [address] [place] [address] COMPLETE BLOOD COUNTon 09-14 Erythrocyte distribution width (RBC) [Ratio] 12.3 % Normal 11.5-15.0 [facility] Comment on above: Performed By: #### 8 0334-6 #### [facility] ([id number]) [address] [place] [address] Hematocrit (Bld) [Volume fraction] 36.5 % Low 39-49 [facility] Comment on above: Performed By: #### 8 0334-6 #### [facility] ([id number]) [address] [place] [address] Hemoglobin (Bld) [Mass/Vol] 13.2 g/dL Normal 13.0-17.0 [facility] Comment on above: Performed By: #### 8 0334-6 #### [facility] ([id number]) [address] [place] [address] MCH (RBC) [Entitic mass] 34.3 pg High 27-34 [facility] Comment on above: Performed By: #### 8 0334-6 #### [facility] ([id number]) [address] [place] [address] MCHC (RBC) [Mass/Vol] 36.1 g/dL High 32-36 [facility] Comment on above: Performed By: #### 8 0334-6 #### [facility] ([id number]) [address] [place] [address] MCV (RBC) [Entitic vol] 95 fL Normal 80-100 [facility] Comment on above: Performed By: #### 8 0334-6 #### [facility] ([id number]) [address] [place] [address] Platelet mean volume (Bld) [Entitic vol] 8.0 fL Normal 7-12 [facility] Comment on above: Performed By: #### 8 0334-6 #### [facility] ([id number]) [address] [place] [address] Platelets (Bld) [#/Vol] 157 10*3/uL Normal 150-450 [facility] Comment on above: Performed By: #### 8 0334-6 #### [facility] ([id number]) [facility] [place][note 2][address] [place] [address] RBC COUNT 3.84 X10E12/L Low 4.10-5.70 [facility] Comment on above: Performed By: #### 8 0334-6 #### [facility] ([id number]) [address] [place] [address] 77205 WBC (Bld) [#/Vol] 3.8 10*3/uL Low 4.0-11.0 [facility] Comment on above: Performed By: #### 8 0334-6 #### [facility] ([id number]) [address] [place] [address] 19638 Calcium.ionized (Bld) [Mass/ Vol]on 09-15-2023 IONIZED CALCIUM 4.9 mg/dL Normal 4.5-5.3 [facility] Comment on above: Performed By: #### 8 0334-6 #### [facility] ([id number]) [address] [place] [address] 11904 Glucose Glucometer (BldC) [M ass/Vol]on 09-15-2023 Glucose [Mass/Vol] 164 mg/dL High 65-99 [facility] Glucose [Mass/Vol] 209 mg/dL High 65-99 [facility] Glucose [Mass/Vol] 221 mg/dL High 65-99 [facility] Glucose [Mass/Vol] 162 mg/dL High 65-99 [facility] Magnesium Ionized ISE (Bld) [Moles/Vol]on 09-15-2023 Magnesium [Moles/Vol] 0.59 mmol/L Normal 0.45-0.60 [facility] Comment on above: Performed By: #### 8 0334-6 #### [facility] ([id number]) [address] [place] [address] 48892 PHOSPHORUSon 09-15-2023 Phosphate [Mass/Vol] 2.5 mg/dL Normal 2.4-4.9 [facility] Comment on above: Performed By: #### 8 0334-6 #### [facility] ([id number]) [address] [place] [address] Beta hydroxybutyrate [Moles/ Vol]on 09-14-2023 BetaHydroxybutyrate 0.26 mmol/L Normal 0.02-0.27 [facility] Comment on above: Performed By: #### 8 0334-6 #### [facility] ([id number]) [address] [place] [address] BetaHydroxybutyrate 0.68 mmol/L High 0.02-0.27 [facility] Comment on above: Performed By: #### 8 0334-6 #### [facility] ([id number]) [address] [place] [address] BetaHydroxybutyrate 3.48 mmol/L High 0.02-0.27 [facility] Comment on above: Performed By: #### C BCA, CMP, 6873-4, 2777-1 ####[facility] ([id number])[address] [place] [address] CBC AND AUTO DIFFon 09-14-19 24 Eosinophils (Bld) [#/Vol] 0.1 10*3/uL Normal 0.0-0.4 [facility] Comment on above: Performed By: #### C BCA, CMP, 6873-4, 2777-1 ####[facility] ([id number])[address] [place] [address] Eosinophils/100 WBC (Bld) 3.0 % Normal [facility] Comment on above: Performed By: #### C BCA, CMP, 6873-4, 2777-1 ####[facility] ([id number])[address] [place] [address] Erythrocyte distribution width (RBC) [Ratio] 12.5 % Normal 11.5-15.0 [facility] Comment on above: Performed By: #### C BCA, CMP, 73-4, 2776-07 ####[facility] ([id number])[address] [facility] [place] [address] Hematocrit (Bld) [Volume fraction] 39.2 % Normal 39-49 [facility] Comment on above: Performed By: #### C BCA, CMP, 73-4, 2776-07 ####[facility] ([id number])[address] [facility] [place] [address] Hemoglobin (Bld) [Mass/Vol] 13.9 g/dL Normal 13.0-17.0 [facility] Comment on above: Performed By: #### C BCA, CMP, 73-, 2776-07 ####[facility] ([id number])[address] [facility] [address] Lymphocytes (Bld) [#/Vol] 1.3 10*3/uL Normal 1.0-3.5 [facility] Comment on above: Performed By: #### C BCA, CMP, 73-, 2776-07 ####[facility] ([id number])[address] [facility] [address] Lymphocytes/100 WBC (Bld) 38.0 % Normal [facility] Comment on above: Performed By: #### C BCA, CMP, 6872-, 2776-07 ####[facility] ([id number])[address] [facility] [place] [address] MCH (RBC) [Entitic mass] 34.6 pg High 27-34 [facility] Comment on above: Performed By: #### C BCA, CMP, 6872-, 2776-07 ####[facility] ([id number])[address] [facility] [address] MCHC (RBC) [Mass/Vol] 35.5 g/dL Normal 32-36 [facility] Comment on above: Performed By: #### C BCA, CMP, 6872-, 2776-07 ####[facility] ([id number])[address] [place] [address] MCV (RBC) [Entitic vol] 98 fL Normal 80-100 [facility] Comment on above: Performed By: #### Edith LANG, CMP, 6873-, 2776-07 ####[facility] ([id number])[address] [place] [address] Monocytes (Bld) [#/Vol] 0.6 10*3/uL Normal 0-0.9 [facility] Comment on above: Performed By: #### Edith LANG, CMP, [facility], 2776-07 ####[facility] ([id number])[address] [place] [address] Monocytes/100 WBC (Bld) 17.0 % Normal [facility] Comment on above: Performed By: #### Edith LANG, CMP, [facility], 2776-07 ####[facility] ([id number])[address] [place] [address] Neutrophils (Bld) [#/Vol] 1.4 10*3/uL Low 1.5-6.6 [facility] Comment on above: Performed By: #### Edith LANG, [facility], , 2776-07 ####[facility] ([id number])[address] [place] [address] Platelet mean volume (Bld) [Entitic vol] 7.8 fL Normal 7-12 [facility] Comment on above: Performed By: #### Edith LANG, CMP, 73, 2776-07 ####[facility] ([id number])[address] [place] [address] Platelets (Bld) [#/Vol] 189 10*3/uL Normal 150-450 [facility] Comment on above: Performed By: #### Edith LANG, CMP, 73, 2776-07 ####[facility] ([id number])[address] [place] [address] RBC COUNT 4.02 X10E12/L Low 4.10-5.70 [facility] Comment on above: Performed By: #### C BCA, CMP, 6873-4, 2776- ####[facility] ([id number])[address] [place] [address] RBC morphology finding Nom (Bld) NORMAL Normal [facility] Comment on above: Performed By: #### C BCA, CMP, 73-4, 2776- ####[facility] ([id number])[address] [place] [address] SEG NEUTROPHIL 42.0 % Normal [facility] Comment on above: Performed By: #### C BCA, CMP, 73-, 2776-07 ####[facility] ([id number])[address] [place] [address] WBC (Bld) [#/Vol] 3.4 10*3/uL Low 4.0-11.0 [facility] Comment on above: Performed By: #### C BCA, CMP, 73-4, 2776- ####[facility] ([id number])[address] [place] [address] COMPREHENSIVE METABOLIC PANE José Manuel 09-14-2023 Albumin [Mass/Vol] 3.5 g/dL Normal 3.2-5.3 [facility] Comment on above: Performed By: #### C BCA, CMP, 73-4, 2776- ####[facility] ([id number])[address] [place] [address] ALP [Catalytic activity/Vol] 84 U/L Normal 39-130 [facility] Comment on above: Performed By: #### C BCA, CMP, 73-4, 2776- ####[facility] ([id number])[address] [place] [address] ALT [Catalytic activity/Vol] 10 U/L Normal 0-40 [facility] Comment on above: Performed By: #### C BCA, CMP, 73-4, 2776-1 ####[facility] ([id number])[address] [place] [address] Anion gap [Moles/Vol] 10 mmol/L Normal 5-15 [facility] Comment on above: Performed By: #### C BCA, CMP, 73-4, 2776-07 ####[facility] ([id number])[address] [place] [address] AST [Catalytic activity/Vol] 8 U/L Normal 0-41 [facility] Comment on above: Performed By: #### C BCA, CMP, 6872-, 2776-07 ####[facility] ([id number])[address] [place] [address] Bilirubin [Mass/Vol] 0.7 mg/dL Normal 0.3-1.2 [facility] Comment on above: Performed By: #### C BCA, CMP, 6872-, 2776-07 ####[facility] ([id number])[address] [place] [address] Calcium [Mass/Vol] 8.5 mg/dL Normal 8.5-10.5 [facility] Comment on above: Performed By: #### C BCA, CMP, 6872-10, 2776-07 ####[facility] ([id number])[address] [place] [address] Chloride [Moles/Vol] 108 mmol/L Normal 98-109 [facility] Comment on above: Performed By: #### C BCA, CMP, 6872-10, 2776-07 ####[facility] ([id number])[address] [place] [address] CO2 [Moles/Vol] 16 mmol/L Low 22-32 [facility] Comment on above: Performed By: #### C BCA, CMP, 6872-, 2776-07 ####[facility] ([id number])[address] [place] [address] Creatinine [Mass/Vol] 0.56 mg/dL Low 0.60-1.30 [facility] Comment on above: Result Comment: METH OD TRACEABLE TO IDMS STANDARD Performed By: #### C LAZARA LANG, 73-4, 2776-07 ####[facility] ([id number])[address] [place] [address] eGFR (CKD-EPI) NON-RACE DEPENDENT >90 Normal >59 [facility] Comment on above: Result Comment: Reported eGFR is based on the CKD-EPI 2020 equation that does not use a race coefficient. Performed By: #### C PRECIOUS, CMP, 73-4, 2776-07 ####[facility] ([id number])[address] [place] [address] Glucose [Mass/Vol] 298 mg/dL High 65-99 [facility] Comment on above: Performed By: #### C LAZARA LANG, 6872-10, 2776-07 ####[facility] ([id number])[address] [facility] [place] [address] Potassium [Moles/Vol] 3.6 mmol/L Normal 3.5-5.0 [facility] Comment on above: Performed By: #### C PRECIOUS CMP, 6872-10, 2776-07 ####[facility] ([id number])[address] [place] [address] Protein [Mass/Vol] 5.4 g/dL Low 6.0-8.0 [facility] Comment on above: Performed By: #### C PRECIOUS CMP, 73, 2776-07 ####[facility] ([id number])[address] [facility] [address] Sodium [Moles/Vol] 134 mmol/L Normal 134-146 [facility] Comment on above: Performed By: #### C PRECIOUS CMP, 6872-10, 2776-07 ####[facility] ([id number])[address] [place] [address] Urea nitrogen [Mass/Vol] 12 mg/dL Normal 5-23 [facility] Comment on above: Performed By: #### C BCA, CMP, 6873-4, 2777-1 ####[facility] ([id number])[address] [place] [address] Calcium.ionized (Bld) [Mass/ Vol]on 09-14-2023 IONIZED CALCIUM 4.8 mg/dL Normal 4.5-5.3 [facility] Comment on above: Performed By: #### 3 8230-9, 17949-2 ####[facility] ([id number])[address] [place] [address] ELECTROLYTESon 09-14-2023 Anion gap [Moles/Vol] 3 mmol/L Low 5-15 [facility] Comment on above: Performed By: #### 8 0334-6 #### [facility] ([id number]) [address] [place] [address] Chloride [Moles/Vol] 107 mmol/L Normal 98-109 [facility] Comment on above: Performed By: #### 8 0334-6 #### [facility] ([id number]) [address] [place] [address] CO2 [Moles/Vol] 28 mmol/L Normal 22-32 [facility] Comment on above: Performed By: #### 8 0334-6 #### [facility] ([id number]) [address] [place] [address] Potassium [Moles/Vol] 3.6 mmol/L Normal 3.5-5.0 [facility] Comment on above: Performed By: #### 8 0334-6 #### [facility] ([id number]) [address] [place] [address] Sodium [Moles/Vol] 138 mmol/L Normal 134-146 [facility] Comment on above: Performed By: #### 8 0334-6 #### [facility] ([id number]) [address] [place] [address] Anion gap [Moles/Vol] 4 mmol/L Low 5-15 [facility] Comment on above: Performed By: #### 8 0334-6 #### [facility] ([id number]) [address] [place] [address] Chloride [Moles/Vol] 109 mmol/L Normal 98-109 [facility] Comment on above: Performed By: #### 8 0334-6 #### [facility] ([id number]) [facility] [place][note 2]0 [place] [address] CO2 [Moles/Vol] 24 mmol/L Normal 22-32 [facility] Comment on above: Performed By: #### 8 0334-6 #### [facility] ([id number]) [address] [place] [address] [place] [address] Potassium [Moles/Vol] 3.7 mmol/L Normal 3.5-5.0 [facility] Comment on above: Performed By: #### 8 0334-6 #### [facility] ([id number]) [address] [place] [address] [place] [address] Sodium [Moles/Vol] 137 mmol/L Normal 134-146 [facility] Comment on above: Performed By: #### 8 0334-6 #### [facility] ([id number]) [address] [place] [address] [place] [address] Anion gap [Moles/Vol] 4 mmol/L Low 5-15 [facility] Comment on above: Performed By: #### 8 0334-6 #### [facility] ([id number]) [facility] [place][note 2]0 [place] [address] Chloride [Moles/Vol] 109 mmol/L Normal 98-109 [facility] Comment on above: Performed By: #### 8 0334-6 #### [facility] ([id number]) [facility] [place][note 2]0 [place] [address] CO2 [Moles/Vol] 22 mmol/L Normal 22-32 [facility] Comment on above: Performed By: #### 8 0334-6 #### [facility] ([id number]) [address] [place] [address] Potassium [Moles/Vol] 3.7 mmol/L Normal 3.5-5.0 [facility] Comment on above: Performed By: #### 8 0334-6 #### [facility] ([id number]) [address] [place] [address] Sodium [Moles/Vol] 135 mmol/L Normal 134-146 [facility] Comment on above: Performed By: #### 8 0334-6 #### [facility] ([id number]) [address] [place] [address] Anion gap [Moles/Vol] 5 mmol/L Normal 5-15 [facility] Comment on above: Performed By: #### E LEC, 2777- ####[facility] ([id number])[address] [place] [address] Chloride [Moles/Vol] 109 mmol/L Normal 98-109 [facility] Comment on above: Performed By: #### E LEC, 2776- ####[facility] ([id number])[address] [place] [address] CO2 [Moles/Vol] 21 mmol/L Low 22-32 [facility] Comment on above: Performed By: #### E LEC, 2776- ####[facility] ([id number])[address] [place] [address] Potassium [Moles/Vol] 3.7 mmol/L Normal 3.5-5.0 [facility] Comment on above: Performed By: #### E LEC, 2776-07 ####[facility] ([id number])[address] [place] [address] Sodium [Moles/Vol] 135 mmol/L Normal 134-146 [facility] Comment on above: Performed By: #### E LEC, 2777- ####[facility] ([id number])[address] [place] [address] Anion gap [Moles/Vol] 16 mmol/L High 5-15 [facility] Comment on above: Performed By: #### P LTCT, ELEC, 2776-, 70761-0 ####[facility] ([id number])[address] [place] [address]#### HA1C ####[facility] ([id number])[address], [address] [address] Chloride [Moles/Vol] 104 mmol/L Normal 98-109 [facility] Comment on above: Performed By: #### P LTCT, ELEC, 2776-07, 39865-6 ####[facility] ([id number])[address] [place] [address]#### HA1C ####[facility] ([id number])[address], [address], [place] [address] CO2 [Moles/Vol] 12 mmol/L Low 22-32 [facility] Comment on above: Performed By: #### P LTCT, ELEC, 2776-07, 09358-7 ####[facility] ([id number])[address] [place] [address]#### HA1C ####[facility] ([id number])[address], [address] [address] Potassium [Moles/Vol] 3.3 mmol/L Low 3.5-5.0 [facility] Comment on above: Performed By: #### P LTCT, ELEC, 2776-07, 59942-3 ####[facility] ([id number])[address] [place] [address]#### HA1C ####[facility] ([id number])[address], [place] [address] Sodium [Moles/Vol] 132 mmol/L Low 134-146 [facility] Comment on above: Performed By: #### P LTCT, ELEC, 2777-1, 84760-5 ####[facility] ([id number])[address] [place] [address]#### HA1C ####[facility] ([id number])[address] [facility], [address] [place] [address] Glucose Glucometer (BldC) [M ass/Vol]on 09-14-2023 Glucose [Mass/Vol] 187 mg/dL High 65-99 [facility] Glucose [Mass/Vol] 207 mg/dL High 65-99 [facility] Glucose [Mass/Vol] 150 mg/dL High 65-99 [facility] Glucose [Mass/Vol] 147 mg/dL High 65-99 [facility] Glucose [Mass/Vol] 144 mg/dL High 65- [facility] Glucose [Mass/Vol] 224 mg/dL High 65-99 [facility] Glucose [Mass/Vol] 253 mg/dL High 65-99 [facility] Glucose [Mass/Vol] 222 mg/dL High 65-99 [facility] Glucose [Mass/Vol] 209 mg/dL High 65-99 [facility] Glucose [Mass/Vol] 218 mg/dL High 65-99 [facility] Glucose [Mass/Vol] 274 mg/dL High 65-99 [facility] Glucose [Mass/Vol] 282 mg/dL High 65-99 [facility] Glucose [Mass/Vol] 250 mg/dL High 65-99 [facility] Glucose [Mass/Vol] 239 mg/dL High 65-99 [facility] Glucose [Mass/Vol] 294 mg/dL High 65-99 [facility] Glucose [Mass/Vol] 292 mg/dL High 65-99 [facility] Glucose [Mass/Vol] 312 mg/dL High 65-99 [facility] Glucose [Mass/Vol] 251 mg/dL High 65-99 [facility] Glucose [Mass/Vol] 257 mg/dL High 65-99 [facility] Glucose [Mass/Vol] 219 mg/dL High 65-99 [facility] Glucose [Mass/Vol] 218 mg/dL High 65-99 [facility] HGB A1C (GLYCO-HGB)on 2023 Glucose [Mass/Vol] 312 mg/dL Normal [facility] Comment on above: Performed By: #### P LTCT, ELEC, 2776-, 95382-8 ####[facility] ([id number])[address] [place] [address]#### HA1C ####[facility] ([id number])[address] [place] [address] HbA1c (Bld) [Mass fraction] 12.5 % High 4.4-5.6 [facility] Comment on above: Result Comment: NOTE ADA Guidelines Result HgbA1c Normal : less than 5.7 % Prediabetes : 5.7 % to 6.4 % Diabetes : > 6.4 % Use with caution in patients with abnormal hemoglobin variants as the half-life of red blood cells and in vivo glycation rates are affected. Performed By: #### P LTCT, ELEC, 2776-07, 04132-2 ####[facility] ([id number])[address] [place] [address]#### HA1C ####[facility] ([id number])[address] [place] [address], [address] [address] Magnesium Ionized ISE (Bld) [Moles/Vol]on 09-14-2023 Magnesium [Moles/Vol] 0.64 mmol/L High 0.45-0.60 [facility] Comment on above: Performed By: #### 3 8230-9, 22535-0 ####[facility] ([id number])[address] [place] [address] PHOSPHORUSon 09-14-2023 Phosphate [Mass/Vol] 2.7 mg/dL Normal 2.4-4.9 [facility] Comment on above: Performed By: #### 8 0334-6 #### [facility] ([id number]) [address] [place] [address] Phosphate [Mass/Vol] 2.2 mg/dL Low 2.4-4.9 [facility] Comment on above: Performed By: #### 8 0334-6 #### [facility] ([id number]) [address] [place] [address] Phosphate [Mass/Vol] 2.6 mg/dL Normal 2.4-4.9 [facility] Comment on above: Performed By: #### 8 0334-6 #### [facility] ([id number]) [address] [place] [address] Phosphate [Mass/Vol] 2.1 mg/dL Low 2.4-4.9 [facility] Comment on above: Performed By: #### E LEC, 2777-1 ####[facility] ([id number])[address] [place] [address] Phosphate [Mass/Vol] 2.8 mg/dL Normal 2.4-4.9 [facility] Comment on above: Performed By: #### C BCA, CMP, 6873-4, 2777-1 ####[facility] ([id number])[address] [place] [address] Phosphate [Mass/Vol] 2.2 mg/dL Low 2.4-4.9 [facility] Comment on above: Performed By: #### P LTCT, ELEC, 2777-1, 66006-9 ####[facility] ([id number])[address] [place] [address]#### HA1C ####[facility] ([id number])[address] [facility], [address], [place] [address] PLATELET COUNT AND MPVon Platelet mean volume (Bld) [Entitic vol] 7.8 fL Normal 7-12 [facility] Comment on above: Performed By: #### P LTCT, ELEC, 2777-1, 86790-9 ####[facility] ([id number])[address] [place] [address]#### HA1C ####[facility] ([id number])[address] [facility], [address] [address] Platelets (Bld) [#/Vol] 201 10*3/uL Normal 150-450 [facility] Comment on above: Performed By: #### P LTCT, ELEC, 2777-1, 88958-3 ####[facility] ([id number])[address] [place] [address]#### HA1C ####[facility] ([id number])[address] [facility], [address], [place] [address] RESP PATHOGENS/MQLW-MoA-8hf 09-14-2023 Respiratory pathogens DNA and RNA panel SHAYY+non-probe (Nph) SPECIMEN SOURCE NASO PHARYNX ADENOVIRUS Not detected (qualifier value) CORONAVIRUS 229E Not detected (qualifier value) CORONAVIRUS HKU1 Not detected (qualifier value) CORONAVIRUS NL63 Not detected (qualifier value) CORONAVIRUS OC43 Not detected (qualifier value) HUMAN METAPNEUVIRUS Not detected (qualifier value) RHINO/ENTEROVIRUS Not detected (qualifier value) INFLUENZA A Not detected (qualifier value) INFLUENZA B Not detected (qualifier value) PARAINFLUENZA 1 Not detected (qualifier value) PARAINFLUENZA 2 Not detected (qualifier value) PARAINFLUENZA 3 Not detected (qualifier value) PARAINFLUENZA 4 Not detected (qualifier value) RESP SYNCYTIAL VIRUS Not detected (qualifier value) BORD PARAPERTUSSIS Not detected (qualifier value) BORDETELLA PERTUSSIS Not detected (qualifier value) CHLAM.PNEUMONIAE Not detected (qualifier value) MYCO. PNEUMONIAE Not detected (qualifier value) SARS CoV 2 Not detected (qualifier value) NOTE The BioFire Respiratory Panel 2.1 (RP2.1) is a multiplexed nucleic acid test intended for the simultaneous qualitative detection and differentiation of nucleic acid from multiple viral and bacterial respiratory organisms, including nucleic acid from Severe Acute Respiratory Syndrome Coronavirus 2 (SARS-CoV-2), in nasopharyngeal swabs obtained from individuals suspected of COVID-19 by their healthcare provider. Testing is limited to laboratories certified under the Clinical Laboratory Improvement Amendments of 1988 (CLIA), to perform high complexity or moderate complexity tests. SARS-CoV-2 RNA and nucleic acids from the other respiratory viral and bacterial organisms identified by this test are generally detectable in nasopharyngeal swabs during the acute phase of infection. The detection and identification of specific viral and bacterial nucleic acids from individuals exhibiting signs and/or symptoms of respiratory infection is indicative of the presence of the identified microorganism and aids in the diagnosis of respiratory infection if used in conjunction with other clinical and epidemiological information. Positive results are indicative of the presence of the identified organism, but do not rule out co-infection with other pathogens. The agent(s) detected by the Green Ae RP2.1 may not be the definite cause of disease and clinical correlation with patient history and other diagnostic information is necessary to determine patient infection status. Negative results in the setting of a respiratory illness may be due to infection with pathogens not detected by this test, or lower respiratory tract infection that may not be detected by a nasopharyngeal specimen. Negative results do not preclude SARS-CoV-2 infection and should not be used as the sole basis for patient management decisions. Negative KADI-CoV-2 results must be combined with clinical observations, patient history and epidemiological information. Negative results for other organisms identified by the test may require additional laboratory testing when evaluating a patient with possible respiratory tract infection. Normal [facility] Comment on above: Performed By: #### 8 2159-5 ####[facility] ([id number])[address] [place], [place] [address] ([id number])[address] [facility], [address], [place] [address] TROPONIN Ion 09-14-2023 Troponin I.cardiac [Mass/Vol] ng/mL Normal 0.00-0.04 [facility] Comment on above: Performed By: #### P LTCT, ELEC, 2777-1, 48466-2 ####[facility] ([id number])[address] [place] [address]#### HA1C ####[facility] ([id number])[address] [place] [address], [address] [place] [address] XR CHEST 1 VWon 09-14-2023 XR CHEST 1 VW XR CHEST 1 VW Single view chest History: Difficulty breathing, shortness of breath. Comparison: None Findings: Cardiomediastinal silhouette within normal limits of size and configuration. No focal consolidation, significant effusion, or pneumothorax. Symmetric hemidiaphragms. Impression: No focal consolidation. Finalized by Jorge Nettles MD on 09/14/2023 7:12 AM Normal [facility] Beta hydroxybutyrate [Moles/ Vol]on 09-13-2023 BetaHydroxybutyrate 7.68 mmol/L High 0.02-0.27 [facility] Comment on above: Performed By: #### C PRECIOUS CMP, 6873-4, 2777-1 #### [facility] ([id number]) [address] [place] [address] #### HA1C #### [facility] ([id number]) [address] [place] [address] CBC AND AUTO DIFFon 09-13-19 24 ABSOLUTE BASOPHIL 0.0 X10E9/L Normal 0.0-0.2 [facility] Comment on above: Performed By: #### C BCA CMP, 6873-4, 2777-1 #### [facility] ([id number]) [address] [place] [address] #### HA1C #### [facility] ([id number]) [address] [place] [address], [address] [address] ABSOLUTE NEUTROPHIL 3.3 X10E9/L Normal 1.5-6.6 [facility] Comment on above: Performed By: #### C BCA, CMP, 6873-4, 2777-1 #### [facility] ([id number]) [address] [place] [address] #### HA1C #### [facility] ([id number]) [address], [address] [place] [address] Basophils/100 WBC (Bld) 0.5 % Normal [facility] Comment on above: Performed By: #### C BCA, CMP, 6873-4, 2777-1 #### [facility] ([id number]) [address] [place], [place] [address] #### HA1C #### [facility] ([id number]) [address], [address] [place] [address] Eosinophils (Bld) [#/Vol] 0.0 10*3/uL Normal 0.0-0.4 [facility] Comment on above: Performed By: #### C BCA, CMP, 6873-4, 7 #### [facility] ([id number]) [address] [place] [address] #### HA1C #### [facility] ([id number]) [address] [facility], [address] [place] [address] Eosinophils/100 WBC (Bld) 0.9 % Normal [facility] Comment on above: Performed By: #### C BCA, CMP, 6873-4, 27701-06 #### [facility] ([id number]) [address] [place], [place] [address] #### HA1C #### [facility] ([id number]) [address], [address] [place] [address] Erythrocyte distribution width (RBC) [Ratio] 12.7 % Normal 11.5-15.0 [facility] Comment on above: Performed By: #### C BCA, CMP, 6873-4, 2776- #### [facility] ([id number]) [address] [place] [address] #### HA1C #### [facility] ([id number]) [address], [address] [place] [address] Hematocrit (Bld) [Volume fraction] 50.2 % High 39-49 [facility] Comment on above: Performed By: #### Edith LANG CMP, 6873-4, 2776-07 #### [facility] ([id number]) [address] [place] [address] #### HA1C #### [facility] ([id number]) [address] [facility], [address] [place] [address] Hemoglobin (Bld) [Mass/Vol] 17.7 g/dL High 13.0-17.0 [facility] Comment on above: Performed By: #### C PRECIOUS CMP, 6873-4, 2776-07 #### [facility] ([id number]) [address] [place] [address] #### HA1C #### [facility] ([id number]) [address] [address] Lymphocytes (Bld) [#/Vol] 1.0 10*3/uL Normal 1.0-3.5 [facility] Comment on above: Performed By: #### Edith LANG CMP, 6872-10, 2776-07 #### [facility] ([id number]) [address] [place] [address] #### HA1C #### [facility] ([id number]) [address] [facility] [address] [place] [address] Lymphocytes/100 WBC (Bld) 20.0 % Normal [facility] Comment on above: Performed By: #### Edith LANG CMP, 73, 2776-07 #### [facility] ([id number]) [address] [place] [address] #### HA1C #### [facility] ([id number]) 0 [facility] [address] [place] [address] MCH (RBC) [Entitic mass] 34.7 pg High 27-34 [facility] Comment on above: Performed By: #### C BCA, CMP, 6873-4, 2777- #### [facility] ([id number]) [address] [place] [address] 00471 #### HA1C #### [facility] ([id number]) [address], [address] [place] [address] MCHC (RBC) [Mass/Vol] 35.3 g/dL Normal 32-36 [facility] Comment on above: Performed By: #### C BCA, CMP, 6873-4, 2777 #### [facility] ([id number]) [address] [place] [address] #### HA1C #### [facility] ([id number]) [address], [address] [place] [address] MCV (RBC) [Entitic vol] 98 fL Normal 80-100 [facility] Comment on above: Performed By: #### C BCA, CMP, 6873-4, 2777 #### [facility] ([id number]) [address] [place] [address] #### HA1C #### [facility] ([id number]) [address], [address] [place] [address] Monocytes (Bld) [#/Vol] 0.8 10*3/uL Normal 0-0.9 [facility] Comment on above: Performed By: #### C BCA, CMP, 6873-4, 27701-06 #### [facility] ([id number]) [address] [place] [address] #### HA1C #### [facility] ([id number]) [address], [address] [place] [address] Monocytes/100 WBC (Bld) 14.7 % Normal [facility] Comment on above: Performed By: #### C BCA, CMP, 6873-4, 2777-1 #### [facility] ([id number]) [address] [place] [address] #### HA1C #### [facility] ([id number]) [address] [facility], [address] [place] [address] Neutrophils/100 WBC (Bld) 63.9 % Normal [facility] Comment on above: Performed By: #### C BCA, CMP, 6873-4, 2776-07 #### [facility] ([id number]) [address] [place] [address] 58216 #### HA1C #### [facility] ([id number]) [address] [facility], [address] [address] Platelet mean volume (Bld) [Entitic vol] 8.3 fL Normal 7-12 [facility] Comment on above: Performed By: #### C BCA, CMP, 6873-4, 2776-07 #### [facility] ([id number]) [address] [place] [address] 31731 #### HA1C #### [facility] ([id number]) [address] [place] [address] Platelets (Bld) [#/Vol] 246 10*3/uL Normal 150-450 [facility] Comment on above: Performed By: #### C BCA, CMP, 6873-4, 2776-07 #### [facility] ([id number]) [address] [place] [address] 97912 #### HA1C #### [facility] ([id number]) [address] [place] [address], [facility] [address] [place] [address] RBC COUNT 5.11 X10E12/L Normal 4.10-5.70 [facility] Comment on above: Performed By: #### C BCA, CMP, 6873-4, 7- #### [facility] ([id number]) [address] [place] [address]23 #### HA1C #### [facility] ([id number]) [address] [place] [address], [address] [place] [address] WBC (Bld) [#/Vol] 5.2 10*3/uL Normal 4.0-11.0 [facility] Comment on above: Performed By: #### C BCA, CMP, 6873-4, 2777-1 #### [facility] ([id number]) [address] [place] [address]45 #### HA1C #### [facility] ([id number]) [address] [place] [address], [address] [place] [address] COMPREHENSIVE METABOLIC PANE José Manuel 09-13-2023 Albumin [Mass/Vol] 4.7 g/dL Normal 3.2-5.3 [facility] Comment on above: Performed By: #### C BCA, CMP, 6873-4, 2777-1 #### [facility] ([id number]) [address] [place] [address] 11569 #### HA1C #### [facility] ([id number]) [address] [place] [address], [address] [place] [address] ALP [Catalytic activity/Vol] 129 U/L Normal 39-130 [facility] Comment on above: Performed By: #### C BCA, CMP, 6873-4, 2777-1 #### [facility] ([id number]) [address] [place] [address] 86599 #### HA1C #### [facility] ([id number]) [address] [place] [address], [address] [place] [address] ALT [Catalytic activity/Vol] 13 U/L Normal 0-40 [facility] Comment on above: Performed By: #### C BCA, CMP, 6873-4, 2777-1 #### [facility] ([id number]) [address] [place] [address] 464[address] #### HA1C #### [facility] ([id number]) [address], [address] [place] [address] Anion gap [Moles/Vol] 19 mmol/L High 5-15 [facility] Comment on above: Performed By: #### C BCA, CMP, 6873-4, 2777-1 #### [facility] ([id number]) [address] [place], [place] [address] #### HA1C #### [facility] ([id number]) [address], [address] [place] [address] AST [Catalytic activity/Vol] 13 U/L Normal 0-41 [facility] Comment on above: Performed By: #### C BCA, CMP, 6873-4, 2777-1 #### [facility] ([id number]) [address] [place], [place] [address] #### HA1C #### [facility] ([id number]) [address], [address] [place] [address] Bilirubin [Mass/Vol] 0.7 mg/dL Normal 0.3-1.2 [facility] Comment on above: Performed By: #### C BCA, CMP, 6873-4, 2777- #### [facility] ([id number]) [address] [place] [address] 23698 #### HA1C #### [facility] ([id number]) [address], [address] [place] [address] Calcium [Mass/Vol] 9.5 mg/dL Normal 8.5-10.5 [facility] Comment on above: Performed By: #### C BCA, CMP, 6873-4, 7- #### [facility] ([id number]) [address] [place] [address]859 #### HA1C #### [facility] ([id number]) [address], [address] [place] [address] Chloride [Moles/Vol] 93 mmol/L Low 98-109 [facility] Comment on above: Performed By: #### C BCA, CMP, 6873-4, 2776-07 #### [facility] ([id number]) [address] [place] [address] 56993 #### HA1C #### [facility] ([id number]) [address], [address] [place] [address] CO2 [Moles/Vol] 13 mmol/L Low 22-32 [facility] Comment on above: Performed By: #### C BCA, CMP, 6873-4, 2776-07 #### [facility] ([id number]) [address] [place], [place] [address] #### HA1C #### [facility] ([id number]) [address], [facility] [address] [place] [address] Creatinine [Mass/Vol] 1.17 mg/dL Normal 0.60-1.30 [facility] Comment on above: Result Comment: METH OD TRACEABLE TO IDMS STANDARD Performed By: #### C BCA, CMP, 73, 2776-07 #### [facility] ([id number]) [address] [place] [address] #### HA1C #### [facility] ([id number]) [address], [facility] [address] [place] [address] GFR/1.73 sq M.predicted among non-blacks MDRD (S/P/Bld) [Vol rate/Area] 89 mL/min/{1.73_m2} Normal >59 [facility] Comment on above: Result Comment: Reported eGFR is based on the CKD-EPI 2020 equation that does not use a race coefficient. Performed By: #### C BCA, CMP, 6873-4, 7- #### [facility] ([id number]) [address] [place] [address] 91889 #### HA1C #### [facility] ([id number]) [address] [facility], [address] [place] [address] Glucose [Mass/Vol] 549 mg/dL Critically high 65-99 [facility] Comment on above: Performed By: #### C BCA, CMP, 6873-4, 7- #### [facility] ([id number]) [address] [place], [place] [address] #### HA1C #### [facility] ([id number]) [address] [facility], [address] [place] [address] Potassium [Moles/Vol] 4.9 mmol/L Normal 3.5-5.0 [facility] Comment on above: Result Comment: SPEC IMEN HEMOLYZED, RESULTS INCREASED MODERATELY HEMOLYZED Performed By: #### C BCA, CMP, 6873-4, 2776- #### [facility] ([id number]) [address] [place] [address] #### HA1C #### [facility] ([id number]) [address] [facility], [address] [place] [address] Protein [Mass/Vol] 7.4 g/dL Normal 6.0-8.0 [facility] Comment on above: Performed By: #### C BCA, CMP, 6873-4, 7- #### [facility] ([id number]) [address] [place] [address] 01771 #### HA1C #### [facility] ([id number]) [address] [facility], [address] [place] [address] Sodium [Moles/Vol] 125 mmol/L Low 134-146 [facility] Comment on above: Performed By: #### C BCA, CMP, 6873-4, 7- #### [facility] ([id number]) [address] [place] [address] 17903 #### HA1C #### [facility] ([id number]) [address] [facility], [address] [place] [address] Urea nitrogen [Mass/Vol] 20 mg/dL Normal 5-23 [facility] Comment on above: Performed By: #### C LAZARA LANG, 6873-4, 2777-1 #### [facility] ([id number]) [address] [place] [address] #### HA1C #### [facility] ([id number]) [address] [facility], [address] [place] [address] Glucose Glucometer (BldC) [M ass/Vol]on 09-13-2023 Glucose [Mass/Vol] 252 mg/dL High 65-99 [facility] Glucose [Mass/Vol] 347 mg/dL High 65-99 [facility] BEDSIDE GLUCOSE LAB >500 Critically high 65-99 [facility] Comment on above: Result Comment: SEE LAB RESULTS FOR CONFIRMATION Lactate (P cal) [Moles/Vol]o n 09-13-2023 LACTATE W/REFLEX 0.4 mmol/L Normal 0.4-2.0 [facility] Comment on above: Result Comment: Result did not trigger repeat Lactate, re-order if needed. Performed By: #### C LAZARA LANG, 6873-4, 2777-1 #### [facility] ([id number]) [address] [place] [address] #### HA1C #### [facility] ([id number]) [address] [facility], [address] [place] [address] POTASSIUMon 09-13-2023 Potassium [Moles/Vol] 3.6 mmol/L Normal 3.5-5.0 [facility] Comment on above: Performed By: #### 2 823-3 ####[facility] ([id number])[address] [place] [address] Potassium [Moles/Vol] 3.7 mmol/L Normal 3.5-5.0 [facility] Comment on above: Result Comment: SPEC IMEN HEMOLYZED, RESULTS INCREASED MODERATELY HEMOLYZED Performed By: #### C BCA, CMP, 6873-4, 2777-1 #### [facility] ([id number]) [address] [place] [address]296 #### HA1C #### [facility] ([id number]) [address], [address] [place] [address] Potassium [Moles/Vol] 4.3 mmol/L Normal 3.5-5.0 [facility] Comment on above: Result Comment: SPEC IMEN HEMOLYZED, RESULTS INCREASED MARKEDLY HEMOLYZED Performed By: #### C BCA, CMP, 6873-4, 2777- #### [facility] ([id number]) [address] [place] [address] 483[address] #### HA1C #### [facility] ([id number]) [address], [address] [place] [address] TROPONIN Ion 09-13-2023 Troponin I.cardiac [Mass/Vol] ng/mL Normal 0.00-0.04 [facility] Comment on above: Performed By: #### C BCA, CMP, 6873-4, 2777- #### [facility] ([id number]) [address] [place] [address] 62368 #### HA1C #### [facility] ([id number]) [address], [address] [place] [address] URINALYSISon 09-13-2023 Bilirubin Ql (U) Negative Normal NEG [facility] Comment on above: Performed By: #### C BCA, CMP, 6873-4, 2777-1 #### [facility] ([id number]) [address] [place] [address] 35531 #### HA1C #### [facility] ([id number]) [address], [address] [place] [address] BLOOD/HGB Negative Normal NEG [facility] Comment on above: Performed By: #### C BCA, CMP, 6873-4, 2776-07 #### [facility] ([id number]) [address] [place] [address]38[address] #### HA1C #### [facility] ([id number]) [address], [address] [place] [address] Color (U) YELLOW Normal YELLOW [facility] Comment on above: Performed By: #### C BCA, CMP, 73-4, 2776-07 #### [facility] ([id number]) [address] [place] [address] 14716 #### HA1C #### [facility] ([id number]) [address], [address] [place] [address] Glucose Ql (U) >1000 Abnormal NEG [facility] Comment on above: Performed By: #### C BCA, CMP, 73, 2776-07 #### [facility] ([id number]) [address] [place] [address] 76731 #### HA1C #### [facility] ([id number]) [address], [address] [place] [address] Ketones Ql (U) >80 Abnormal NEG [facility] Comment on above: Performed By: #### C BCA, CMP, 73, 2776-07 #### [facility] ([id number]) [address] [place] [address] #### HA1C #### [facility] ([id number]) [address], [address] [place] [address] Leukocyte esterase Test strip Ql (U) Negative Normal NEG [facility] Comment on above: Result Comment: HIGH CONCENTRATIONS OF GLUCOSE MAY DECREASE THE REACTIVITY OF THE DIPSTICK LEUKOCYTE TEST PAD. Performed By: #### C BCA, CMP, 6873-4, 2776-07 #### [facility] ([id number]) [address] [place] [address] 59361 #### HA1C #### [facility] ([id number]) [address] [facility], [address] [place] [address] Nitrite Ql (U) Negative Normal NEG [facility] Comment on above: Performed By: #### C BCA, CMP, 6873-4, 2777-1 #### [facility] ([id number]) [address] [place] [address] 41971 #### HA1C #### [facility] ([id number]) [address] [facility], [address] [place] [address] pH (U) 6.0 [pH] Normal 5.0-8.5 [facility] Comment on above: Performed By: #### C BCA, CMP, 6873-4, 2777-1 #### [facility] ([id number]) [address] [place] [address] #### HA1C #### [facility] ([id number]) [address] [place] [address], [address] [place] [address] Protein Ql (U) Negative Normal NEG [facility] Comment on above: Performed By: #### C BCA, CMP, 6873-4, 2777-1 #### [facility] ([id number]) [address] [place] [address] 02070 #### HA1C #### [facility] ([id number]) [facility], [address] [place] [address] Specific gravity (U) [Rel density] 1.020 Normal 1.003-1.03 5 [facility] Comment on above: Performed By: #### C BCA, CMP, 6873-4, 2777-1 #### [facility] ([id number]) [address] [place] [address] #### HA1C #### [facility] ([id number]) [address] [facility], [address] [place] [address] TURBIDITY CLEAR Normal CLEAR [facility] Comment on above: Performed By: #### C PRECIOUS, CMP, 6873-4, 2777- #### [facility] ([id number]) [address] [place] [address] 67[address] #### HA1C #### [facility] ([id number]) [address], [address] [place] [address] Urobilinogen Qn (U) 0.2 {Gay'U}/dL Normal <1.1 [facility] Comment on above: Performed By: #### C BCA, CMP, 6873-4, 2777- #### [facility] ([id number]) [address] [place] [address] #### HA1C #### [facility] ([id number]) [address], [address] [place] [address] VENOUS BLOOD GASon 4 TIFFANI'S TEST Normal [facility] Comment on above: Performed By: #### C BCA, CMP, 6873-4, 2777 #### [facility] ([id number]) [address] [place] [address] 84269 #### HA1C #### [facility] ([id number]) [address], [address] [place] [address] BASE,DEFICIT 16.0 MMOL/L High 0.0-2.0 [facility] Comment on above: Performed By: #### C BCA, CMP, 6873-4, 2776-07 #### [facility] ([id number]) [address] [place] [address] 78971 #### HA1C #### [facility] ([id number]) [address], [address] [place] [address] Body temperature 98.6 [degF] Normal 37.0 [facility] Comment on above: Performed By: #### C BCA, CMP, 6873-4, 2776-07 #### [facility] ([id number]) [address] [place] [address] 94329 #### HA1C #### [facility] ([id number]) [address], [address] [place] [address] HCO3 (Bld) [Moles/Vol] 9.7 mmol/L Low 20.0-24.0 [facility] Comment on above: Performed By: #### C BCA, CMP, 6873-4, 2776- #### [facility] ([id number]) [address] [place] [address] #### HA1C #### [facility] ([id number]) [address], [address] [place] [address] INSP. O2 CONC. 21 % Normal [facility] Comment on above: Performed By: #### C BCA, CMP, 73, 2776-07 #### [facility] ([id number]) [address] [place] [address] 71603 #### HA1C #### [facility] ([id number]) [address], [address] [place] [address] Oxygen saturation in Blood 39.0 % Low >80.0 [facility] Comment on above: Performed By: #### C BCA, CMP, 73-, 2776-07 #### [facility] ([id number]) [address] [place] [address] 25725 #### HA1C #### [facility] ([id number]) [address], [address] [place] [address] OXYGEN SOURCE [employer] [facility] Comment on above: Performed By: #### C BCA, CMP, 6873-4, 2776- #### [facility] ([id number]) [address] [place] [address] 74482 #### HA1C #### [facility] ([id number]) [address], [address] [place] [address] PCO2, VENOUS 22.4 MMHG Low 35-50 [facility] Comment on above: Performed By: #### C BCA, CMP, 6873-4, 2776-07 #### [facility] ([id number]) [address] [place] [address] 93605 #### HA1C #### [facility] ([id number]) [address], [address] [place] [address] PH, VENOUS 7.245 Low 7.320-7.42 0 [facility] Comment on above: Performed By: #### C BCA, CMP, 73-, 2776-07 #### [facility] ([id number]) [address] [place] [address] 13173 #### HA1C #### [facility] ([id number]) [address] [place] [address] PO2, VENOUS 26 MMHG Low 30-50 [facility] Comment on above: Performed By: #### C BCA, CMP, 73-, 2776-07 #### [facility] ([id number]) [address] [place] [address] 32769 #### HASoni #### [facility] ([id number]) [address] [place] [address] SAMPLE SITE N/A Normal [facility] Comment on above: Performed By: #### C BCA, CMP, 73-4, 2776-07 #### [facility] ([id number]) [address] [place] [address]31 #### HA1C #### [facility] ([id number]) [address], [address] [place] [address] SAMPLE TYPE VENOUS Normal [facility] Comment on above: Performed By: #### C BCA, CMP, 73-4, 7- #### [facility] ([id number]) [address] [place] [address] #### HA1C #### [facility] ([id number]) [address] [facility], [address] [address] COMPLETE BLOOD COUNTon 07-10 Erythrocyte distribution width (RBC) [Ratio] 12.3 % Normal 11.5-15.0 [facility] Comment on above: Performed By: #### C BCA, CMP, 6873-4, 2776-07 #### [facility] ([id number]) [address] [place] [address] 21775 #### HA1C #### [facility] ([id number]) [address] [facility], [address] [address] Hematocrit (Bld) [Volume fraction] 38.0 % Low 39-49 [facility] Comment on above: Performed By: #### C BCA, CMP, 6873-4, 2776-07 #### [facility] ([id number]) [address] [place] [address] 13442 #### HA1C #### [facility] ([id number]) [address] [place] [address] Hemoglobin (Bld) [Mass/Vol] 13.7 g/dL Normal 13.0-17.0 [facility] Comment on above: Performed By: #### C BCA, CMP, 6873-4, 2776-07 #### [facility] ([id number]) [address] [place] [address] 30076 #### HA1C #### [facility] ([id number]) [address] [place] [address] MCH (RBC) [Entitic mass] 34.0 pg Normal 27-34 [facility] Comment on above: Performed By: #### C BCA, CMP, 6873-4, 2777-1 #### [facility] ([id number]) [address] [place] [address] 24197 #### HA1C #### [facility] ([id number]) [address] [facility], [address] [place] [address] MCHC (RBC) [Mass/Vol] 36.0 g/dL Normal 32-36 [facility] Comment on above: Performed By: #### C PRECIOUS CMP, 6873-4, 2777- #### [facility] ([id number]) [address] [place] [address] 68795 #### HA1C #### [facility] ([id number]) [address] [place] [address], [address] [place] [address] MCV (RBC) [Entitic vol] 94 fL Normal 80-100 [facility] Comment on above: Performed By: #### Edith LANG CMP, 6873-4, 2776- #### [facility] ([id number]) [address] [place] [address] #### HA1C #### [facility] ([id number]) [address] [place] [address], [facility] [address] [place] [address] Platelet mean volume (Bld) [Entitic vol] 7.9 fL Normal 7-12 [facility] Comment on above: Performed By: #### C PRECIOUS, CMP, 6873-4, 2777- #### [facility] ([id number]) [address] [place] [address] #### HA1C #### [facility] ([id number]) [facility], [address] [place] [address] Platelets (Bld) [#/Vol] 166 10*3/uL Normal 150-450 [facility] Comment on above: Performed By: #### C PRECIOUS, CMP, 6873-4, 7- #### [facility] ([id number]) [address] [place] [address] #### HA1C #### [facility] ([id number]) [address] [place] [address], [address] [place] [address] RBC COUNT 4.03 X10E12/L Low 4.10-5.70 [facility] Comment on above: Performed By: #### C BCA, CMP, 6873-4, 2777-1 #### [facility] ([id number]) [address] [place] [address] #### HA1C #### [facility] ([id number]) [address] [place] [address], [address] [place] [address] WBC (Bld) [#/Vol] 4.7 10*3/uL Normal 4.0-11.0 [facility] Comment on above: Performed By: #### C BCA, CMP, 6873-4, 2777-1 #### [facility] ([id number]) [address] [place] [address] #### HA1C #### [facility] ([id number]) [address] [place] [address], [address] [place] [address] COMPREHENSIVE METABOLIC PANE José Manuel 07-10-2023 Albumin [Mass/Vol] 3.5 g/dL Normal 3.2-5.3 [facility] Comment on above: Performed By: #### C BCA, CMP, 6873-4, 2777-1 #### [facility] ([id number]) [address] [place] [address] #### HA1C #### [facility] ([id number]) [address] [place] [address], [address] [place] [address] ALP [Catalytic activity/Vol] 73 U/L Normal 39-130 [facility] Comment on above: Performed By: #### C BCA, CMP, 6873-4, 2777-1 #### [facility] ([id number]) [address] [place] [address] #### HA1C #### [facility] ([id number]) [address], [address] [place] [address] ALT [Catalytic activity/Vol] 12 U/L Normal 0-40 [facility] Comment on above: Performed By: #### C BCA, CMP, 6873-4, 2777-1 #### [facility] ([id number]) [address] [place] [address] #### HA1C #### [facility] ([id number]) [address], [address] [place] [address] Anion gap [Moles/Vol] 8 mmol/L Normal 5-15 [facility] Comment on above: Performed By: #### C BCA, CMP, 6873-4, 2777-1 #### [facility] ([id number]) [address] [place] [address] #### HA1C #### [facility] ([id number]) [address], [address] [place] [address] AST [Catalytic activity/Vol] 11 U/L Normal 0-41 [facility] Comment on above: Performed By: #### C BCA, CMP, 6873-4, 2777-1 #### [facility] ([id number]) [address] [place] [address] #### HA1C #### [facility] ([id number]) [address], [address] [place] [address] Bilirubin [Mass/Vol] 0.7 mg/dL Normal 0.3-1.2 [facility] Comment on above: Performed By: #### C BCA, CMP, 6873-4, 2777- #### [facility] ([id number]) [address] [place] [address] #### HA1C #### [facility] ([id number]) [address], [address] [place] [address] Calcium [Mass/Vol] 9.2 mg/dL Normal 8.5-10.5 [facility] Comment on above: Performed By: #### C BCA, CMP, 6873-4, 2777- #### [facility] ([id number]) [address] [place] [address] #### HA1C #### [facility] ([id number]) [address], [address] [place] [address] Chloride [Moles/Vol] 103 mmol/L Normal 98-109 [facility] Comment on above: Performed By: #### C BCA, CMP, 6873-4, 2777- #### [facility] ([id number]) [address] [place] [address] 20396 #### HA1C #### [facility] ([id number]) [address], [address] [place] [address] CO2 [Moles/Vol] 28 mmol/L Normal 22-32 [facility] Comment on above: Performed By: #### C BCA, CMP, 6873-4, 2777- #### [facility] ([id number]) [address] [place] [address] #### HA1C #### [facility] ([id number]) [address], [address] [place] [address] Creatinine [Mass/Vol] 0.47 mg/dL Low 0.60-1.30 [facility] Comment on above: Result Comment: METH OD TRACEABLE TO IDMS STANDARD Performed By: #### C BCA, CMP, 6873-4, 2777- #### [facility] ([id number]) [address] [place] [address] 96083 #### HA1C #### [facility] ([id number]) [address], [address] [place] [address] eGFR (CKD-EPI) NON-RACE DEPENDENT >90 Normal >59 [facility] Comment on above: Result Comment: Reported eGFR is based on the CKD-EPI 2020 equation that does not use a race coefficient. Performed By: #### C PRECIOUS CMP, 6873-4, 2777-1 #### [facility] ([id number]) [address] [place], [place] [address] #### HA1C #### [facility] ([id number]) [address], [address] [place] [address] Glucose [Mass/Vol] 124 mg/dL High 65-99 [facility] Comment on above: Performed By: #### C BCA, CMP, 6873-4, 2777- #### [facility] ([id number]) [address] [place] [address] #### HA1C #### [facility] ([id number]) [address], [address] [place] [address] Potassium [Moles/Vol] 3.6 mmol/L Normal 3.5-5.0 [facility] Comment on above: Performed By: #### C BCA, CMP, 6873-4, 2777- #### [facility] ([id number]) [address] [place], [place] [address] #### HA1C #### [facility] ([id number]) [address], [address] [place] [address] Protein [Mass/Vol] 5.5 g/dL Low 6.0-8.0 [facility] Comment on above: Performed By: #### C BCA, CMP, 6873-4, 2777- #### [facility] ([id number]) [address] [place] [address] #### HA1C #### [facility] ([id number]) [address], [address] [place] [address] Sodium [Moles/Vol] 139 mmol/L Normal 134-146 [facility] Comment on above: Performed By: #### C BCA, CMP, 6873-4, 2777- #### [facility] ([id number]) [address] [place] [address] #### HA1C #### [facility] ([id number]) [address], [address] [place] [address] Urea nitrogen [Mass/Vol] 10 mg/dL Normal 5-23 [facility] Comment on above: Performed By: #### C BCA, CMP, 6873-4, 7- #### [facility] ([id number]) [address] [place] [address] #### HA1C #### [facility] ([id number]) [address], [address] [place] [address] ELECTROLYTESon 07-10-2023 Anion gap [Moles/Vol] 4 mmol/L Low 5-15 [facility] Comment on above: Performed By: #### C BCA, CMP, 6873-4, 2777- #### [facility] ([id number]) [address] [place] [address] #### HA1C #### [facility] ([id number]) [address], [address] [place] [address] Chloride [Moles/Vol] 100 mmol/L Normal 98-109 [facility] Comment on above: Performed By: #### C BCA, CMP, 6873-4, 2776- #### [facility] ([id number]) [address] [place] [address] #### HA1C #### [facility] ([id number]) [address], [address] [place] [address] CO2 [Moles/Vol] 31 mmol/L Normal 22-32 [facility] Comment on above: Performed By: #### C BCA, CMP, 6873-4, 2777-1 #### [facility] ([id number]) [address] [place] [address] #### HA1C #### [facility] ([id number]) [address] [place] [address], [address] [place] [address] Potassium [Moles/Vol] 3.5 mmol/L Normal 3.5-5.0 [facility] Comment on above: Performed By: #### C BCA, CMP, 6873-4, 2777-1 #### [facility] ([id number]) [address] [place] [address] #### HA1C #### [facility] ([id number]) [address] [place] [address], [address] [place] [address] Sodium [Moles/Vol] 135 mmol/L Normal 134-146 [facility] Comment on above: Performed By: #### C BCA, CMP, 6873-4, 2777- #### [facility] ([id number]) [address] [place] [address] #### HA1C #### [facility] ([id number]) [address] [place] [address], [address] [place] [address] Anion gap [Moles/Vol] 4 mmol/L Low 5-15 [facility] Comment on above: Performed By: #### C BCA, CMP, 6873-4, 2777-1 #### [facility] ([id number]) [address] [place] [address] #### HA1C #### [facility] ([id number]) [address] [place] [address], [address] [place] [address] Chloride [Moles/Vol] 100 mmol/L Normal 98-109 [facility] Comment on above: Performed By: #### C BCA, CMP, 6873-4, 2777-1 #### [facility] ([id number]) [address] [place] [address] 07918 #### HA1C #### [facility] ([id number]) [address], [address] [place] [address] CO2 [Moles/Vol] 31 mmol/L Normal 22-32 [facility] Comment on above: Performed By: #### C BCA, CMP, 6873-4, 2776-07 #### [facility] ([id number]) [address] [place] [address] #### HA1C #### [facility] ([id number]) [address] [place] [address] Potassium [Moles/Vol] 3.6 mmol/L Normal 3.5-5.0 [facility] Comment on above: Performed By: #### C BCA, CMP, 6873-4, 2776-07 #### [facility] ([id number]) [address] [place] [address] #### HA1C #### [facility] ([id number]) [address], [address] [place] [address] Sodium [Moles/Vol] 135 mmol/L Normal 134-146 [facility] Comment on above: Performed By: #### C BCA, CMP, 73-, 2776-07 #### [facility] ([id number]) [address] [place] [address] #### HA1C #### [facility] ([id number]) [address] [place] [address] Anion gap [Moles/Vol] 7 mmol/L Normal 5-15 [facility] Comment on above: Performed By: #### C BCA, CMP, 73, 2776-07 #### [facility] ([id number]) [address] [place] [address] #### HA1C #### [facility] ([id number]) [address], [address] [place] [address] CO2 [Moles/Vol] 30 mmol/L Normal 22-32 [facility] Comment on above: Performed By: #### C BCA, CMP, 6873-4, 2777-1 #### [facility] ([id number]) [address] [place] [address] #### HA1C #### [facility] ([id number]) [address], [address] [place] [address] Sodium [Moles/Vol] 140 mmol/L Normal 134-146 [facility] Comment on above: Performed By: #### C BCA, CMP, 6873-4, 2777- #### [facility] ([id number]) [address] [place] [address]14 #### HA1C #### [facility] ([id number]) [address], [address] [place] [address] Anion gap [Moles/Vol] 6 mmol/L Normal 5-15 [facility] Comment on above: Performed By: #### C BCA, CMP, 6873-4, 2777- #### [facility] ([id number]) [address] [place] [address] 8[address]65 #### HA1C #### [facility] ([id number]) [address] [place] [address] Chloride [Moles/Vol] 101 mmol/L Normal 98-109 [facility] Comment on above: Performed By: #### C BCA, CMP, 6873-4, 2776- #### [facility] ([id number]) [address] [place] [address] 19964 #### HA1C #### [facility] ([id number]) [address] [place] [address] CO2 [Moles/Vol] 30 mmol/L Normal 22-32 [facility] Comment on above: Performed By: #### C BCA, CMP, 6873-4, 2776-1 #### [facility] ([id number]) [address] [place] [address] 02869 #### HA1C #### [facility] ([id number]) [address], [address] [place] [address] Potassium [Moles/Vol] 3.5 mmol/L Normal 3.5-5.0 [facility] Comment on above: Performed By: #### C BCA, CMP, 6873-4, 7- #### [facility] ([id number]) [address] [place] [address] 49778 #### HA1C #### [facility] ([id number]) [address], [address] [place] [address] Sodium [Moles/Vol] 137 mmol/L Normal 134-146 [facility] Comment on above: Performed By: #### C BCA, CMP, 6873-4, 2776- #### [facility] ([id number]) [address] [place] [address]32 #### HA1C #### [facility] ([id number]) [address], [address] [place] [address] Anion gap [Moles/Vol] 6 mmol/L Normal 5-15 [facility] Comment on above: Performed By: #### C BCA, CMP, 6873-4, 2776- #### [facility] ([id number]) [address] [place] [address] 05017 #### HA1C #### [facility] ([id number]) [address], [address] [place] [address] Chloride [Moles/Vol] 97 mmol/L Low 98-109 [facility] Comment on above: Performed By: #### C BCA, CMP, 6873-4, 7- #### [facility] ([id number]) [address] [place] [address] 63192 #### HA1C #### [facility] ([id number]) [address], [address] [place] [address] CO2 [Moles/Vol] 29 mmol/L Normal 22-32 [facility] Comment on above: Performed By: #### C PRECIOUS CMP, 6873-4, 2777-1 #### [facility] ([id number]) [address] [place] [address] #### HA1C #### [facility] ([id number]) [address], [address] [place] [address] Potassium [Moles/Vol] 4.2 mmol/L Normal 3.5-5.0 [facility] Comment on above: Performed By: #### C PRECIOUS CMP, 6873-4, 2777-1 #### [facility] ([id number]) [address] [place] [address] #### HA1C #### [facility] ([id number]) [address], [address] [place] [address] Sodium [Moles/Vol] 132 mmol/L Low 134-146 [facility] Comment on above: Performed By: #### C PRECIOUS CMP, 6873-4, 2777-1 #### [facility] ([id number]) [address] [place], [place] [address] #### HA1C #### [facility] ([id number]) [address] [place] [address] Glucose Glucometer (BldC) [M ass/Vol]on 07-10-2023 Glucose [Mass/Vol] 216 mg/dL High 65-99 [facility] Glucose [Mass/Vol] 202 mg/dL High 65-99 [facility] Glucose [Mass/Vol] 398 mg/dL High 65-99 [facility] Glucose [Mass/Vol] 424 mg/dL Critically high 65-99 [facility] MAGNESIUMon 07-10-2023 Magnesium [Mass/Vol] 1.7 mg/dL Low 1.8-2.6 [facility] Comment on above: Performed By: #### C LAZARA LANG, 6873-4, 2777-1 #### [facility] ([id number]) [address] [place] [address] 90472 #### HA1C #### [facility] ([id number]) [address] [place] [address], [address] [place] [address] Reference Lab Test IDon Insulinoma Ab 2 See Below Normal [facility] Comment on above: Result Comment: NOTE TEST RESULT FLAG UNIT REF.RANGE ------- IA 2 Antibody Blood >120.0 H U/mL <7.5 Anti-insulinoma associated antigen 2 (IA-2) antibody test is used as an aid in diagnosis of type I diabetes mellitus, to predict the risk of progression to type I diabetes mellitus among susceptible individuals, and to predict the necessity of insulin therapy in adult-onset diabetes mellitus. Clinical correlation is required. Test Performed By: [employer] [address] [place] [address] Soap Drier Tender: Kuldip Cm III #[id number] Performed By: #### C LAZARA LANG, 6873-4, 2777-1 #### [facility] ([id number]) [address] [place] [address] 48209 #### HA1C #### [facility] ([id number]) [address] [place] [address], [facility] [address] [place] [address] C peptide [Mass/Vol]on 07-09 C PEPTIDE 0.20 ng/mL Low 0.81-3.85 [facility] Comment on above: Result Comment: NOTE #MARIOLA PER RN TP Test Performed By: [place] [address] Soap Drier Tender: Akash Lomas III, M.D. CLIA #[id number] Performed By: #### C BCA, CMP, 6873-4, 2777- #### [facility] ([id number]) [address] [place] [address] #### HA1C #### [facility] ([id number]) [address] [place] [address], [place] [id number] C PEPTIDE 0.20 ng/mL Low 0.81-3.85 [facility] Comment on above: Result Comment: NOTE Test Performed By: [place] [address] Soap Drier Tender: Akash Lomas III, M.D. CLIA #[id number] Performed By: #### C BCA, CMP, 6873-4, 2777 #### [facility] ([id number]) [address] [place] [address] #### HA1C #### [facility] ([id number]) [address] [place] [address], [address] [address] COMPLETE BLOOD COUNTon 07-09 Erythrocyte distribution width (RBC) [Ratio] 12.3 % Normal 11.5-15.0 [facility] Comment on above: Performed By: #### C BCA, CMP, 6873-4, 2776-07 #### [facility] ([id number]) [address] [place], [place] [address] #### HA1C #### [facility] ([id number]) [address] [place] [address], [facility] [address] [place] [address] Hematocrit (Bld) [Volume fraction] 36.3 % Low 39-49 [facility] Comment on above: Performed By: #### C BCA, CMP, 6873-4, 7- #### [facility] ([id number]) [address] [place], [place] [address] #### HA1C #### [facility] ([id number]) [address] [place] [address] Hemoglobin (Bld) [Mass/Vol] 13.3 g/dL Normal 13.0-17.0 [facility] Comment on above: Performed By: #### C PRECIOUS CMP, 6873-4, 2777- #### [facility] ([id number]) [address] [place] [address] #### HA1C #### [facility] ([id number]) [address], [address] [place] [address] MCH (RBC) [Entitic mass] 34.2 pg High 27-34 [facility] Comment on above: Performed By: #### C PRECIOUS, CMP, 6873-4, 7 #### [facility] ([id number]) [address] [place] [address] #### HA1C #### [facility] ([id number]) [address] [facility], [address] [place] [address] MCHC (RBC) [Mass/Vol] 36.8 g/dL High 32-36 [facility] Comment on above: Performed By: #### C PRECIOUS, CMP, 6873-4, 2777 #### [facility] ([id number]) [address] [place], [place] [address] #### HA1C #### [facility] ([id number]) [address] [facility], [address] [place] [address] MCV (RBC) [Entitic vol] 93 fL Normal 80-100 [facility] Comment on above: Performed By: #### C BCA, CMP, 6873-, 2776-07 #### [facility] ([id number]) [address] [place] [address]21 #### HA1C #### [facility] ([id number]) [address], [address] [place] [address] Platelet mean volume (Bld) [Entitic vol] 8.3 fL Normal 7-12 [facility] Comment on above: Performed By: #### C PRECIOUS CMP, 6873-4, 2777-1 #### [facility] ([id number]) [address] [place] [address] #### HA1C #### [facility] ([id number]) [address] [facility], [facility] [address] [place] [address] Platelets (Bld) [#/Vol] 172 10*3/uL Normal 150-450 [facility] Comment on above: Performed By: #### C PRECIOUS CMP, 6873-4, 2777-1 #### [facility] ([id number]) [address] [place] [address] #### HA1C #### [facility] ([id number]) [address] [facility], [facility] [address] [place] [address] RBC COUNT 3.90 X10E12/L Low 4.10-5.70 [facility] Comment on above: Performed By: #### C PRECIOUS CMP, 6873-4, 2777-1 #### [facility] ([id number]) [address] [place] [address] #### HA1C #### [facility] ([id number]) [facility], [facility] [address] [place] [address] WBC (Bld) [#/Vol] 4.3 10*3/uL Normal 4.0-11.0 [facility] Comment on above: Performed By: #### C PRECIOUS, CMP, 6873-4, 2777- #### [facility] ([id number]) [address] [place] [address] #### HA1C #### [facility] ([id number]) [address], [address] [place] [address] COMPREHENSIVE METABOLIC PANE José Manuel 07-09-2023 Albumin [Mass/Vol] 3.6 g/dL Normal 3.2-5.3 [facility] Comment on above: Performed By: #### C BCA, CMP, 6873-4, 2777-1 #### [facility] ([id number]) [address] [place] [address] #### HA1C #### [facility] ([id number]) [address], [address] [place] [address] ALP [Catalytic activity/Vol] 91 U/L Normal 39-130 [facility] Comment on above: Performed By: #### C BCA, CMP, 6873-4, 2777- #### [facility] ([id number]) [address] [place] [address] #### HA1C #### [facility] ([id number]) [address], [address] [place] [address] ALT [Catalytic activity/Vol] 11 U/L Normal 0-40 [facility] Comment on above: Performed By: #### C BCA, CMP, 6873-4, 2777- #### [facility] ([id number]) [address] [place], [place] [address] #### HA1C #### [facility] ([id number]) [address], [address] [place] [address] Anion gap [Moles/Vol] 11 mmol/L Normal 5-15 [facility] Comment on above: Performed By: #### C BCA, CMP, 6873-4, 2777- #### [facility] ([id number]) [address] [place] [address] #### HA1C #### [facility] ([id number]) [address], [address] [place] [address] AST [Catalytic activity/Vol] 10 U/L Normal 0-41 [facility] Comment on above: Performed By: #### C BCA, CMP, 6873-4, 7- #### [facility] ([id number]) [address] [place] [address] #### HA1C #### [facility] ([id number]) [address], [address] [place] [address] Bilirubin [Mass/Vol] 0.8 mg/dL Normal 0.3-1.2 [facility] Comment on above: Performed By: #### C BCA, CMP, 6873-4, 7- #### [facility] ([id number]) [address] [place] [address] #### HA1C #### [facility] ([id number]) [address], [address] [place] [address] Calcium [Mass/Vol] 9.5 mg/dL Normal 8.5-10.5 [facility] Comment on above: Performed By: #### C BCA, CMP, 73-4, 277- #### [facility] ([id number]) [address] [place] [address] #### HA1C #### [facility] ([id number]) [address], [address] [place] [address] Chloride [Moles/Vol] 105 mmol/L Normal 98-109 [facility] Comment on above: Performed By: #### C BCA, CMP, 73-4, 2776-07 #### [facility] ([id number]) [address] [place] [address] #### HA1C #### [facility] ([id number]) [address], [address] [place] [address] CO2 [Moles/Vol] 24 mmol/L Normal 22-32 [facility] Comment on above: Performed By: #### C BCA, CMP, 6873-4, 2776- #### [facility] ([id number]) [facility] [place][note 2][address] [place] [address] #### HA1C #### [facility] ([id number]) [address], [address] [place] [address] Creatinine [Mass/Vol] 0.58 mg/dL Low 0.60-1.30 [facility] Comment on above: Result Comment: METH OD TRACEABLE TO IDMS STANDARD Performed By: #### C BCA, CMP, 6873-4, 2776-07 #### [facility] ([id number]) [address] [place] [address] #### HA1C #### [facility] ([id number]) [address], [address] [address] eGFR (CKD-EPI) NON-RACE DEPENDENT >90 Normal >59 [facility] Comment on above: Result Comment: Reported eGFR is based on the CKD-EPI 2020 equation that does not use a race coefficient. Performed By: #### C BCA, CMP, 6873-4, 2776-07 #### [facility] ([id number]) [address] [place] [address] #### HA1C #### [facility] ([id number]) [address], [address] [place] [address] Glucose [Mass/Vol] 348 mg/dL High 65-99 [facility] Comment on above: Performed By: #### C BCA, CMP, 6873-4, 2776-07 #### [facility] ([id number]) [address] [place] [address] #### HA1C #### [facility] ([id number]) [address], [address] [place] [address] Potassium [Moles/Vol] 3.6 mmol/L Normal 3.5-5.0 [facility] Comment on above: Performed By: #### C BCA, CMP, 6873-4, 2776-07 #### [facility] ([id number]) [address] [place] [address] #### HA1C #### [facility] ([id number]) [address], [address] [place] [address] Protein [Mass/Vol] 5.4 g/dL Low 6.0-8.0 [facility] Comment on above: Performed By: #### C BCA, CMP, 6873-4, 2777-1 #### [facility] ([id number]) [address] [place] [address] #### HA1C #### [facility] ([id number]) [address] [facility], [address] [place] [address] Sodium [Moles/Vol] 140 mmol/L Normal 134-146 [facility] Comment on above: Performed By: #### C BCA, CMP, 6873-4, 2777-1 #### [facility] ([id number]) [address] [place] [address] #### HA1C #### [facility] ([id number]) [address] [place] [address], [address] [place] [address] Urea nitrogen [Mass/Vol] 12 mg/dL Normal 5-23 [facility] Comment on above: Performed By: #### C BCA, CMP, 6873-4, 2777-1 #### [facility] ([id number]) [address] [place] [address] #### HA1C #### [facility] ([id number]) [address], [address] [place] [address] Albumin [Mass/Vol] 3.7 g/dL Normal 3.2-5.3 [facility] Comment on above: Performed By: #### 8 0334-6 #### [facility] ([id number]) [address] [place] [address] ALP [Catalytic activity/Vol] 96 U/L Normal 39-130 [facility] Comment on above: Performed By: #### 8 0334-6 #### [facility] ([id number]) [address] [place] [address] ALT [Catalytic activity/Vol] 12 U/L Normal 0-40 [facility] Comment on above: Performed By: #### 8 0334-6 #### [facility] ([id number]) [address] [place] [address] Anion gap [Moles/Vol] 14 mmol/L Normal 5-15 [facility] Comment on above: Performed By: #### 8 0334-6 #### [facility] ([id number]) [address] [place] [address] AST [Catalytic activity/Vol] 11 U/L Normal 0-41 [facility] Comment on above: Performed By: #### 8 0334-6 #### [facility] ([id number]) [address] [place] [address] Bilirubin [Mass/Vol] 0.9 mg/dL Normal 0.3-1.2 [facility] Comment on above: Performed By: #### 8 0334-6 #### [facility] ([id number]) [address] [place] [address] Calcium [Mass/Vol] 9.0 mg/dL Normal 8.5-10.5 [facility] Comment on above: Performed By: #### 8 0334-6 #### [facility] ([id number]) [address] [place] [address] Chloride [Moles/Vol] 101 mmol/L Normal 98-109 [facility] Comment on above: Performed By: #### 8 0334-6 #### [facility] ([id number]) [address] [place] [address] CO2 [Moles/Vol] 22 mmol/L Normal 22-32 [facility] Comment on above: Performed By: #### 8 0334-6 #### [facility] ([id number]) [address] [place] [address] Creatinine [Mass/Vol] 0.55 mg/dL Low 0.60-1.30 [facility] Comment on above: Result Comment: METH OD TRACEABLE TO IDMS STANDARD Performed By: #### 8 0334-6 #### [facility] ([id number]) [address] [place] [address] eGFR (CKD-EPI) NON-RACE DEPENDENT >90 Normal >59 [facility] Comment on above: Result Comment: Reported eGFR is based on the CKD-EPI 2020 equation that does not use a race coefficient. Performed By: #### 8 0334-6 #### [facility] ([id number]) [address] [place] [address] Glucose [Mass/Vol] 202 mg/dL High 65-99 [facility] Comment on above: Performed By: #### 8 0334-6 #### [facility] ([id number]) [address] [place] [address] Potassium [Moles/Vol] 2.9 mmol/L Low 3.5-5.0 [facility] Comment on above: Performed By: #### 8 0334-6 #### [facility] ([id number]) [address] [place] [address] Protein [Mass/Vol] 5.5 g/dL Low 6.0-8.0 [facility] Comment on above: Performed By: #### 8 0334-6 #### [facility] ([id number]) [address] [place] [address] Sodium [Moles/Vol] 137 mmol/L Normal 134-146 [facility] Comment on above: Performed By: #### 8 0334-6 #### [facility] ([id number]) [address] [place] [address] Urea nitrogen [Mass/Vol] 10 mg/dL Normal 5-23 [facility] Comment on above: Performed By: #### 8 0334-6 #### [facility] ([id number]) [address] [place] [address] ELECTROLYTESon 07-09-2023 Anion gap [Moles/Vol] 7 mmol/L Normal 5-15 [facility] Comment on above: Performed By: #### C BCA, CMP, 6873-4, 2777-1 #### [facility] ([id number]) [address] [place] [address] #### HA1C #### [facility] ([id number]) [address], [address] [place] [address] Chloride [Moles/Vol] 97 mmol/L Low 98-109 [facility] Comment on above: Performed By: #### C BCA, CMP, 6873-4, 2777-1 #### [facility] ([id number]) [address] [place] [address] #### HA1C #### [facility] ([id number]) [address], [address] [place] [address] CO2 [Moles/Vol] 29 mmol/L Normal 22-32 [facility] Comment on above: Performed By: #### C BCA, CMP, 6873-4, 2777-1 #### [facility] ([id number]) [address] [place] [address] #### HA1C #### [facility] ([id number]) [address], [address] [place] [address] Potassium [Moles/Vol] 3.7 mmol/L Normal 3.5-5.0 [facility] Comment on above: Performed By: #### C BCA, CMP, 6873-4, 2777-1 #### [facility] ([id number]) [address] [place] [address] #### HA1C #### [facility] ([id number]) [address], [address] [facility] [address] Sodium [Moles/Vol] 133 mmol/L Low 134-146 [facility] Comment on above: Performed By: #### C BCA, CMP, 6873-4, 2777- #### [facility] ([id number]) [address] [place] [address] #### HA1C #### [facility] ([id number]) [address], [address] [place] [address] Anion gap [Moles/Vol] 7 mmol/L Normal 5-15 [facility] Comment on above: Performed By: #### C BCA, CMP, 6873-4, 2776- #### [facility] ([id number]) [address] [place], [place] [address] #### HA1C #### [facility] ([id number]) [address] [facility], [address] [place] [address] Chloride [Moles/Vol] 101 mmol/L Normal 98-109 [facility] Comment on above: Performed By: #### C BCA, CMP, 6873-4, 2776- #### [facility] ([id number]) [address] [place] [address] #### HA1C #### [facility] ([id number]) [address], [address] [place] [address] CO2 [Moles/Vol] 27 mmol/L Normal 22-32 [facility] Comment on above: Performed By: #### C BCA, CMP, 6873-4, 2776-07 #### [facility] ([id number]) [address] [place] [address] #### HA1C #### [facility] ([id number]) [address] [facility], [address] [place] [address] Potassium [Moles/Vol] 3.7 mmol/L Normal 3.5-5.0 [facility] Comment on above: Performed By: #### C BCA, CMP, 6873-4, 2777- #### [facility] ([id number]) [address] [place] [address] #### HA1C #### [facility] ([id number]) [address], [address] [place] [address] Sodium [Moles/Vol] 135 mmol/L Normal 134-146 [facility] Comment on above: Performed By: #### C BCA, CMP, 6873-4, 2776- #### [facility] ([id number]) [address] [place] [address] #### HA1C #### [facility] ([id number]) [address], [address] [place] [address] Anion gap [Moles/Vol] 7 mmol/L Normal 5-15 [facility] Comment on above: Performed By: #### C BCA, CMP, 6873-4, 2776- #### [facility] ([id number]) [address] [place] [address] #### HA1C #### [facility] ([id number]) [address], [address] [place] [address] Chloride [Moles/Vol] 103 mmol/L Normal 98-109 [facility] Comment on above: Performed By: #### C BCA, CMP, 6873-4, 2776- #### [facility] ([id number]) [address] [place] [address] #### HA1C #### [facility] ([id number]) [address] [place] [address] CO2 [Moles/Vol] 29 mmol/L Normal 22-32 [facility] Comment on above: Performed By: #### C BCA, CMP, 6873-4, 7- #### [facility] ([id number]) [address] [place] [address] #### HA1C #### [facility] ([id number]) [address] [facility], [address] [place] [address] Potassium [Moles/Vol] 3.8 mmol/L Normal 3.5-5.0 [facility] Comment on above: Performed By: #### C BCA, CMP, 6873-4, 2777-1 #### [facility] ([id number]) [address] [place], [place] [address] #### HA1C #### [facility] ([id number]) [address] [facility], [address] [place] [address] Sodium [Moles/Vol] 139 mmol/L Normal 134-146 [facility] Comment on above: Performed By: #### C BCA, CMP, 6873-4, 2777-1 #### [facility] ([id number]) [address] [place], [place] [address] #### HA1C #### [facility] ([id number]) [address] [facility], [address] [place] [address] Anion gap [Moles/Vol] 8 mmol/L Normal 5-15 [facility] Comment on above: Performed By: #### C BCA, CMP, 6873-4, 2777-1 #### [facility] ([id number]) [address] [place] [address] #### HA1C #### [facility] ([id number]) [address] [facility], [address] [place] [address] Chloride [Moles/Vol] 103 mmol/L Normal 98-109 [facility] Comment on above: Performed By: #### C BCA, CMP, 6873-4, 2777- #### [facility] ([id number]) [address] [place] [address] #### HA1C #### [facility] ([id number]) [address], [address] [place] [address] CO2 [Moles/Vol] 26 mmol/L Normal 22-32 [facility] Comment on above: Performed By: #### C PRECIOUS CMP, 73-4, 2776-07 #### [facility] ([id number]) [address] [place] [address] #### HA1C #### [facility] ([id number]) [address], [address] [place] [address] Potassium [Moles/Vol] 3.5 mmol/L Normal 3.5-5.0 [facility] Comment on above: Performed By: #### C PRECIOUS, CMP, 6873-, 2776-07 #### [facility] ([id number]) [address] [place] [address] #### HA1C #### [facility] ([id number]) [address], [address] [place] [address] Potassium [Moles/Vol] 3.4 mmol/L Low 3.5-5.0 [facility] Comment on above: Performed By: #### C PRECIOUS, CMP, 73-, 2776-07 #### [facility] ([id number]) [address] [place] [address] #### HA1C #### [facility] ([id number]) [address], [address] [place] [address] Sodium [Moles/Vol] 137 mmol/L Normal 134-146 [facility] Comment on above: Performed By: #### C PRECIOUS, CMP, 73-, 2776-07 #### [facility] ([id number]) [address] [place] [address]85 #### HA1C #### [facility] ([id number]) [address], [address] [place] [address] Anion gap [Moles/Vol] 14 mmol/L Normal 5-15 [facility] Comment on above: Performed By: #### C BCA, CMP, 6873-4, 2777- #### [facility] ([id number]) [address] [place] [address] #### HA1C #### [facility] ([id number]) [address], [address] [place] [address] Chloride [Moles/Vol] 98 mmol/L Normal 98-109 [facility] Comment on above: Performed By: #### C BCA, CMP, 6873-4, 2776- #### [facility] ([id number]) [address] [place] [address] #### HA1C #### [facility] ([id number]) [address], [address] [place] [address] CO2 [Moles/Vol] 22 mmol/L Normal 22-32 [facility] Comment on above: Performed By: #### C BCA, CMP, 6873-4, 2777- #### [facility] ([id number]) [address] [place], [place] [address] #### HA1C #### [facility] ([id number]) [address], [address] [place] [address] Potassium [Moles/Vol] 4.6 mmol/L Normal 3.5-5.0 [facility] Comment on above: Performed By: #### C BCA, CMP, 6873-4, 2776-07 #### [facility] ([id number]) [address] [place] [address]78 #### HA1C #### [facility] ([id number]) [address] [place] [address] Sodium [Moles/Vol] 134 mmol/L Normal 134-146 [facility] Comment on above: Performed By: #### C BCA, CMP, 6873-4, 2776-07 #### [facility] ([id number]) [address] [place] [address]216 #### HA1C #### [facility] ([id number]) [address] [facility], [address] [place] [address] Anion gap [Moles/Vol] 12 mmol/L Normal 5-15 [facility] Comment on above: Performed By: #### C BCA, CMP, 6873-4, 2776-07 #### [facility] ([id number]) [address] [place] [address] 02468 #### HA1C #### [facility] ([id number]) [address] [facility], [address] [place] [address] Chloride [Moles/Vol] 102 mmol/L Normal 98-109 [facility] Comment on above: Performed By: #### C BCA, CMP, 73, 2776-07 #### [facility] ([id number]) [address] [place] [address]64 #### HA1C #### [facility] ([id number]) [address] [facility], [address] [place] [address] CO2 [Moles/Vol] 22 mmol/L Normal 22-32 [facility] Comment on above: Performed By: #### C BCA, CMP, 6873, 2776-07 #### [facility] ([id number]) [address] [place] [address] 82100 #### HA1C #### [facility] ([id number]) [address] [facility], [address] [place] [address] Potassium [Moles/Vol] 4.3 mmol/L Normal 3.5-5.0 [facility] Comment on above: Performed By: #### C BCA, CMP, 6873-, 2776-07 #### [facility] ([id number]) [address] [place] [address] #### HA1C #### [facility] ([id number]) [address], [address] [place] [address] Sodium [Moles/Vol] 136 mmol/L Normal 134-146 [facility] Comment on above: Performed By: #### C BCA, CMP, 6873-4, 2777-1 #### [facility] ([id number]) [address] [place] [address] 72008 #### HA1C #### [facility] ([id number]) [address] [place] [address] Anion gap [Moles/Vol] 11 mmol/L Normal 5-15 [facility] Comment on above: Performed By: #### C BCA, CMP, 6873-4, 2777- #### [facility] ([id number]) [address] [place] [address] #### HA1C #### [facility] ([id number]) [address] [place] [address] Chloride [Moles/Vol] 106 mmol/L Normal 98-109 [facility] Comment on above: Performed By: #### C BCA, CMP, 6873-4, 7- #### [facility] ([id number]) [address] [place] [address]113 #### HA1C #### [facility] ([id number]) [address] [place] [address] CO2 [Moles/Vol] 23 mmol/L Normal 22-32 [facility] Comment on above: Performed By: #### C BCA, CMP, 6873-4, 2776- #### [facility] ([id number]) [address] [place] [address] 02704 #### HA1C #### [facility] ([id number]) [address], [address] [place] [address] Potassium [Moles/Vol] 4.3 mmol/L Normal 3.5-5.0 [facility] Comment on above: Performed By: #### C BCA, CMP, 6873-4, 2777- #### [facility] ([id number]) [address] [place] [address] 12281 #### HA1C #### [facility] ([id number]) [address], [address] [place] [address] Sodium [Moles/Vol] 140 mmol/L Normal 134-146 [facility] Comment on above: Performed By: #### C BCA, CMP, 6873-4, 27701-06 #### [facility] ([id number]) [address] [place] [address] 61361 #### HA1C #### [facility] ([id number]) [address], [address] [place] [address] Anion gap [Moles/Vol] 7 mmol/L Normal 5-15 [facility] Comment on above: Performed By: #### C BCA, CMP, 6873-4, 2777 #### [facility] ([id number]) [address] [place] [address] 06601 #### HA1C #### [facility] ([id number]) [address], [address] [place] [address] Chloride [Moles/Vol] 104 mmol/L Normal 98-109 [facility] Comment on above: Performed By: #### C BCA, CMP, 6873-4, 2776-07 #### [facility] ([id number]) [address] [place] [address]67 #### HA1C #### [facility] ([id number]) [address], [address] [place] [address] CO2 [Moles/Vol] 26 mmol/L Normal 22-32 [facility] Comment on above: Performed By: #### C BCA, CMP, 6873-4, 2777-1 #### [facility] ([id number]) [address] [place] [address] #### HA1C #### [facility] ([id number]) [address] [facility], [address] [place] [address] Potassium [Moles/Vol] 3.2 mmol/L Low 3.5-5.0 [facility] Comment on above: Performed By: #### C BCA, CMP, 6873-4, 2777-1 #### [facility] ([id number]) [address] [place] [address]33 #### HA1C #### [facility] ([id number]) [address] [facility] [place] [address] Sodium [Moles/Vol] 137 mmol/L Normal 134-146 [facility] Comment on above: Performed By: #### C PRECIOUS, CMP, 6873-4, 2777-1 #### [facility] ([id number]) [address] [place] [address] 76546 #### HA1C #### [facility] ([id number]) [address] [facility] [place] [address] GLUCOSEon 07-09-2023 Glucose [Mass/Vol] 550 mg/dL Critically high 65-99 P [facility] Comment on above: Performed By: #### C PRECIOUS, CMP, 6873-4, 2777-1 #### [facility] ([id number]) [address] [place] [address] 01584 #### HA1C #### [facility] ([id number]) [address] [facility], [address] [place] [address] Glucose Glucometer (BldC) [M ass/Vol]on 07-09-2023 Glucose [Mass/Vol] 246 mg/dL High 65-99 [facility] Glucose [Mass/Vol] 215 mg/dL High 65-99 [facility] Glucose [Mass/Vol] 493 mg/dL Critically high 65-99 P [facility] BEDSIDE GLUCOSE LAB >500 Critically high 65-99 [facility] Comment on above: Result Comment: SEE LAB RESULTS FOR CONFIRMATION Glucose [Mass/Vol] 312 mg/dL High 65-99 [facility] Glucose [Mass/Vol] 331 mg/dL High 65-99 [facility] Glucose [Mass/Vol] 300 mg/dL High 65-99 [facility] Glucose [Mass/Vol] 377 mg/dL High 65-99 [facility] Glucose [Mass/Vol] 463 mg/dL Critically high 65-99 P [facility] Glucose [Mass/Vol] 204 mg/dL High 65-99 [facility] Glucose [Mass/Vol] 191 mg/dL High 65-99 [facility] Glutamate decarboxylase 65 A b IA Qn (S)on 07-09-2023 ZAIN ANTIBODY >250.0 High 0.0-5.0 [facility] Comment on above: Result Comment: NOTE INTERPRETIVE INFORMATION: Glutamic Acid Decarboxylase Antibody A value greater than 5.0 IU/mL is considered positive for Glutamic Acid Decarboxylase Antibody (ZAIN Ab). This assay is intended for the semi-quantitative determination of the ZAIN Ab in human serum. Results should be interpreted within the context of clinical symptoms. Performed By: [facility] [address] [place] [address] Soap Drier Tender: Giovanni Abdul MD, PhD CLIA Number: [id number] Performed By: #### C LAZARA LANG, 6873-4, 2777-1 #### [facility] ([id number]) [address] [place] [address] #### HA1C #### [facility] ([id number]) [address] [place] [address], [address] [place] [address] Insulin Qnon 07-09-2023 INSULIN 6.52 uIU/mL Normal 1.00-23.00 [facility] Comment on above: Result Comment: Ref. range is for FASTING NON-DIABETIC POPULATION. Performed By: #### C LAZARA LANG, 6873-4, 2777-1 #### [facility] ([id number]) [address] [place] [address] #### HA1C #### [facility] ([id number]) [address] [place] [address], [address] [address] MAGNESIUMon 07-09-2023 Magnesium [Mass/Vol] 1.9 mg/dL Normal 1.8-2.6 [facility] Comment on above: Performed By: #### C BCA, CMP, 6873-4, 2777-1 #### [facility] ([id number]) [address] [place] [address] #### HA1C #### [facility] ([id number]) [facility], [address] [address] Magnesium [Mass/Vol] 1.7 mg/dL Low 1.8-2.6 [facility] Comment on above: Performed By: #### C BCA, CMP, 6873-4, 2777-1 #### [facility] ([id number]) [address] [place] [address] #### HA1C #### [facility] ([id number]) [address] [place] [address], [address] [address] Pancreatic islet cell Ab (S) [Titer]on 07-09-2023 ISLET CELL CYTO,IGG <1:4 Normal <1:4 [facility] Comment on above: Result Comment: NOTE INTERPRETIVE INFORMATION: Islet Cell Ab, IgG Islet cell antibodies (ICAs) are associated with type 1 diabetes (TID), an autoimmune endocrine disorder. ICAs may be present years before the onset of clinical symptoms. To calculate [employer] (JDF) units: multiply the titer x 5 (1:8 8 x 5 = 40 JDF Units). This test was developed and its performance characteristics determined by [facility]. It has not been cleared or approved by the [place] Food and Drug Administration. This test was performed in a CLIA certified laboratory and is intended for clinical purposes. Performed By: [facility] [address] [place] [address] Soap Drier Tender: Giovanni Abdul MD, PhD CLIA Number: [id number] Performed By: #### C [facility], [facility], 6873-4, 2777-1 #### [facility] ([id number]) [address] [place] [address] #### HA1C #### [facility] ([id number]) [address] [place] [address], [address] [place] [address] THYROID PROFILEon 07-09-2023 Free T4 [Mass/Vol] 1.13 ng/dL Normal 0.61-1.60 [facility] Comment on above: Performed By: #### 8 0334-6 #### [facility] ([id number]) [address] [place] [address] TSH 0.63 uIU/mL Normal 0.49-4.67 [facility] Comment on above: Performed By: #### 8 0334-6 #### [facility] ([id number]) [address] [place] [address] BASIC METABOLIC PANLon 07-08 Anion gap [Moles/Vol] 12 mmol/L Normal 5-15 [facility] Comment on above: Performed By: #### 8 0334-6 #### [facility] ([id number]) [address] [place] [address] Calcium [Mass/Vol] 8.8 mg/dL Normal 8.5-10.5 [facility] Comment on above: Performed By: #### 8 0334-6 #### [facility] ([id number]) [address] [place] [address] Chloride [Moles/Vol] 100 mmol/L Normal 98-109 [facility] Comment on above: Performed By: #### 8 0334-6 #### [facility] ([id number]) [address] [place] [address] CO2 [Moles/Vol] 23 mmol/L Normal 22-32 [facility] Comment on above: Performed By: #### 8 0334-6 #### [facility] ([id number]) [address] [place] [address] Creatinine [Mass/Vol] 0.51 mg/dL Low 0.60-1.30 [facility] Comment on above: Result Comment: METH OD TRACEABLE TO IDMS STANDARD Performed By: #### 8 0334-6 #### [facility] ([id number]) [address] [place] [address] eGFR (CKD-EPI) NON-RACE DEPENDENT >90 Normal >59 [facility] Comment on above: Result Comment: Reported eGFR is based on the CKD-EPI 2020 equation that does not use a race coefficient. Performed By: #### 8 0334-6 #### [facility] ([id number]) [address] [place] [address] Glucose [Mass/Vol] 223 mg/dL High 65-99 [facility] Comment on above: Performed By: #### 8 0334-6 #### [facility] ([id number]) [address] [place] [address] Potassium [Moles/Vol] 3.1 mmol/L Low 3.5-5.0 [facility] Comment on above: Performed By: #### 8 0334-6 #### [facility] ([id number]) [facility] [place][note 2][address] [place] [address] Sodium [Moles/Vol] 135 mmol/L Normal 134-146 [facility] Comment on above: Performed By: #### 8 0334-6 #### [facility] ([id number]) [facility] [place]note 2][address] [place] [address] Urea nitrogen [Mass/Vol] 10 mg/dL Normal 5-23 [facility] Comment on above: Performed By: #### 8 0334-6 #### [facility] ([id number]) [address] [place] [address] Beta hydroxybutyrate [Moles/ Vol]on 07-08-2023 BetaHydroxybutyrate 6.98 mmol/L High 0.02-0.27 [facility] Comment on above: Performed By: #### C PRECIOUS CMP, 6873-4, 2776-07 #### [facility] ([id number]) [address] [place] [address] #### HA1C #### [facility] ([id number]) [address] [place] [address] CBC AND AUTO DIFFon 07-08-20 ABSOLUTE BASOPHIL 0.0 X10E9/L Normal 0.0-0.2 [facility] Comment on above: Performed By: #### C PRECIOUS, CMP, 6873-4, 2776-07 #### [facility] ([id number]) [address] [place] [address] #### HA1C #### [facility] ([id number]) [address] [place] [address] ABSOLUTE NEUTROPHIL 3.2 X10E9/L Normal 1.5-6.6 [facility] Comment on above: Performed By: #### C PRECIOUS, CMP, 6873-4, 2776-07 #### [facility] ([id number]) [address] [place] [address] #### HA1C #### [facility] ([id number]) [address] [place] [address] Basophils/100 WBC (Bld) 0.6 % Normal [facility] Comment on above: Performed By: #### C PRECIOUS, CMP, 6873-4, 2776-07 #### [facility] ([id number]) [address] [place] [address] #### HA1C #### [facility] ([id number]) [address] [place] [address] [address] [place] [address] Eosinophils (Bld) [#/Vol] 0.0 10*3/uL Normal 0.0-0.4 [facility] Comment on above: Performed By: #### C BCA, CMP, 6873-4, 2777- #### [facility] ([id number]) [address] [place] [address] #### HA1C #### [facility] ([id number]) [address], [address] [place] [address] Eosinophils/100 WBC (Bld) 0.7 % Normal [facility] Comment on above: Performed By: #### C BCA, CMP, 6873-4, 2777 #### [facility] ([id number]) [address] [place] [address] #### HA1C #### [facility] ([id number]) [address], [address] [place] [address] Erythrocyte distribution width (RBC) [Ratio] 12.5 % Normal 11.5-15.0 [facility] Comment on above: Performed By: #### C BCA, CMP, 6873-4, 7 #### [facility] ([id number]) [address] [place] [address] #### HA1C #### [facility] ([id number]) [address], [address] [place] [address] Hematocrit (Bld) [Volume fraction] 39.2 % Normal 39-49 [facility] Comment on above: Performed By: #### C BCA, CMP, 6873-4, 2777 #### [facility] ([id number]) [address] [place] [address] #### HA1C #### [facility] ([id number]) [address], [address] [place] [address] Hemoglobin (Bld) [Mass/Vol] 14.2 g/dL Normal 13.0-17.0 [facility] Comment on above: Performed By: #### C BCA, CMP, 6873-4, 277- #### [facility] ([id number]) [address] [place] [address] #### HA1C #### [facility] ([id number]) [address], [address] [place] [address] Lymphocytes (Bld) [#/Vol] 1.1 10*3/uL Normal 1.0-3.5 [facility] Comment on above: Performed By: #### C BCA, CMP, 6873-4, 2776- #### [facility] ([id number]) [address] [place] [address] 30[address] #### HA1C #### [facility] ([id number]) [address], [address] [place] [address] Lymphocytes/100 WBC (Bld) 21.9 % Normal [facility] Comment on above: Performed By: #### C BCA, CMP, 6873-4, 2776-07 #### [facility] ([id number]) [address] [place] [address]67[address] #### HA1C #### [facility] ([id number]) [address], [address] [place] [address] MCH (RBC) [Entitic mass] 33.6 pg Normal 27-34 [facility] Comment on above: Performed By: #### C BCA, CMP, 6873-, 2776-07 #### [facility] ([id number]) [address] [place] [address] 45703 #### HA1C #### [facility] ([id number]) [address], [address] [place] [address] MCHC (RBC) [Mass/Vol] 36.1 g/dL High 32-36 [facility] Comment on above: Performed By: #### C BCA, CMP, 6873-4, 2776-07 #### [facility] ([id number]) [address] [place] [address]79[address] #### HA1C #### [facility] ([id number]) [address] [place] [address], [address] [place] [address] MCV (RBC) [Entitic vol] 93 fL Normal 80-100 [facility] Comment on above: Performed By: #### C BCA, CMP, 73, 2776-07 #### [facility] ([id number]) [address] [place] [address] #### HA1C #### [facility] ([id number]) [address] [place] [address] Monocytes (Bld) [#/Vol] 0.7 10*3/uL Normal 0-0.9 [facility] Comment on above: Performed By: #### C BCA, CMP, 73, 2776-07 #### [facility] ([id number]) [address] [place] [address] 28118 #### HA1C #### [facility] ([id number]) [address] [place] [address] Monocytes/100 WBC (Bld) 13.4 % Normal [facility] Comment on above: Performed By: #### C BCA, CMP, 6872-10, 2776-07 #### [facility] ([id number]) [address] [place] [address] #### HA1C #### [facility] ([id number]) [address] [place] [address], [facility] [address] [place] [address] Neutrophils/100 WBC (Bld) 63.4 % Normal [facility] Comment on above: Performed By: #### C BCA, CMP, 73, 2776-07 #### [facility] ([id number]) [address] [place] [address] 377[address] #### HA1C #### [facility] ([id number]) [address], [address] [place] [address] Platelet mean volume (Bld) [Entitic vol] 8.3 fL Normal 7-12 [facility] Comment on above: Performed By: #### C PRECIOUS, CMP, 6873-4, 2777-1 #### [facility] ([id number]) [address] [place] [address] 79[address] #### HA1C #### [facility] ([id number]) [address], [address] [place] [address] Platelets (Bld) [#/Vol] 179 10*3/uL Normal 150-450 [facility] Comment on above: Performed By: #### C BCA, CMP, 6873-4, 2777-1 #### [facility] ([id number]) [address] [place] [address] #### HA1C #### [facility] ([id number]) [address], [address] [place] [address] RBC COUNT 4.22 X10E12/L Normal 4.10-5.70 [facility] Comment on above: Performed By: #### C BCA, CMP, 6873-4, 2777-1 #### [facility] ([id number]) [address] [place] [address] #### HA1C #### [facility] ([id number]) [address], [address] [place] [address] WBC (Bld) [#/Vol] 5.0 10*3/uL Normal 4.0-11.0 [facility] Comment on above: Performed By: #### C BCA, CMP, 6873-4, 2777-1 #### [facility] ([id number]) [address] [place] [address] 19098 #### HA1C #### [facility] ([id number]) [address] [place] [address], [address] [place] [address] COMPREHENSIVE METABOLIC PANE José Manuel 07-08-2023 Albumin [Mass/Vol] 4.3 g/dL Normal 3.2-5.3 [facility] Comment on above: Performed By: #### C BCA, CMP, 6873-4, 2777-1 #### [facility] ([id number]) [address] [place] [address] #### HA1C #### [facility] ([id number]) [address] [place] [address], [address] [place] [address] ALP [Catalytic activity/Vol] 187 U/L High 39-130 [facility] Comment on above: Performed By: #### C BCA, CMP, 6873-4, 2777-1 #### [facility] ([id number]) [address] [place] [address] #### HA1C #### [facility] ([id number]) [address] [facility], [address] [place] [address] ALT [Catalytic activity/Vol] 14 U/L Normal 0-40 [facility] Comment on above: Performed By: #### C BCA, CMP, 6873-4, 2777-1 #### [facility] ([id number]) [address] [place] [address] 929[address] #### HA1C #### [facility] ([id number]) [address] [place] [address], [address] [place] [address] Anion gap [Moles/Vol] 19 mmol/L High 5-15 [facility] Comment on above: Performed By: #### C BCA, CMP, 6873-4, 2777-1 #### [facility] ([id number]) [address] [place] [address] #### HA1C #### [facility] ([id number]) [address] [place] [address], [address] [place] [address] AST [Catalytic activity/Vol] 15 U/L Normal 0-41 [facility] Comment on above: Performed By: #### C BCA, CMP, 6873-4, 7- #### [facility] ([id number]) [address] [place] [address] #### HA1C #### [facility] ([id number]) [address], [address] [place] [address] Bilirubin [Mass/Vol] 0.9 mg/dL Normal 0.3-1.2 [facility] Comment on above: Performed By: #### C BCA, CMP, 6873-4, 2777 #### [facility] ([id number]) [address] [place] [address] 41829 #### HA1C #### [facility] ([id number]) [address], [address] [place] [address] Calcium [Mass/Vol] 9.6 mg/dL Normal 8.5-10.5 [facility] Comment on above: Performed By: #### C BCA, CMP, 6873-4, 2777 #### [facility] ([id number]) [address] [place] [address] 8[address]65 #### HA1C #### [facility] ([id number]) [address], [address] [place] [address] Chloride [Moles/Vol] 92 mmol/L Low 98-109 [facility] Comment on above: Performed By: #### C BCA, CMP, 6873-4, 2776-07 #### [facility] ([id number]) [address] [place] [address] 6[address] #### HA1C #### [facility] ([id number]) [address], [address] [place] [address] CO2 [Moles/Vol] 20 mmol/L Low 22-32 [facility] Comment on above: Performed By: #### C BCA, CMP, 6873-4, 7- #### [facility] ([id number]) [address] [place] [address] 46265 #### HA1C #### [facility] ([id number]) [address], [address] [place] [address] Creatinine [Mass/Vol] 0.63 mg/dL Normal 0.60-1.30 [facility] Comment on above: Result Comment: METH OD TRACEABLE TO IDMS STANDARD Performed By: #### C PRECIOUS, CMP, 6873-4, 2776-07 #### [facility] ([id number]) [address] [place], [place] [address] #### HA1C #### [facility] ([id number]) [address], [address] [address] eGFR (CKD-EPI) NON-RACE DEPENDENT >90 Normal >59 [facility] Comment on above: Result Comment: Reported eGFR is based on the CKD-EPI 2020 equation that does not use a race coefficient. Performed By: #### C PRECIOUS, CMP, 6873-4, 2776-07 #### [facility] ([id number]) [address] [place] [address] 85253 #### HA1C #### [facility] ([id number]) [address], [address] [place] [address] Glucose [Mass/Vol] 436 mg/dL Critically high 65-99 [facility] Comment on above: Performed By: #### C BCA, CMP, 6873-4, 2776- #### [facility] ([id number]) [address] [place] [address] 80732 #### HA1C #### [facility] ([id number]) [address], [address] [place] [address] Potassium [Moles/Vol] 3.2 mmol/L Low 3.5-5.0 [facility] Comment on above: Performed By: #### C BCA, CMP, 6873-4, 2777-1 #### [facility] ([id number]) [address] [place] [address] #### HA1C #### [facility] ([id number]) [address], [address] [place] [address] Protein [Mass/Vol] 6.6 g/dL Normal 6.0-8.0 [facility] Comment on above: Performed By: #### C BCA, CMP, 6873-4, 2777-1 #### [facility] ([id number]) [address] [place] [address] #### HA1C #### [facility] ([id number]) [address], [address] [place] [address] Sodium [Moles/Vol] 131 mmol/L Low 134-146 [facility] Comment on above: Performed By: #### C BCA, CMP, 6873-4, 2777-1 #### [facility] ([id number]) [address] [place] [address] #### HA1C #### [facility] ([id number]) [address], [address] [place] [address] Urea nitrogen [Mass/Vol] 14 mg/dL Normal 5-23 [facility] Comment on above: Performed By: #### C BCA, CMP, 6873-4, 2777-1 #### [facility] ([id number]) [address] [place] [address] #### HA1C #### [facility] ([id number]) [address], [address] [place] [address] CT ABDOMEN AND PELVIS W CONT on 07-08-2023 CT ABDOMEN AND PELVIS W CONT CT ABDOMEN AND PELVIS W CONT HISTORY: A 22-year-old male with the history of the unintentional weight loss. Malignancy is suspected. EXAM/TECHNIQUE: Multidetector spiral CT scan of abdomen and pelvis is performed during intravenous administration of 100 mL of Omnipaque-300. Multiplanar reconstruction images are reformatted. All CT scans at this facility use dose modulation, iterative reconstruction, and/or weight based dosing when appropriate to reduce radiation dose to as low as reasonably achievable. COMPARISON: No prior relevant studies are available for comparison. FINDINGS: The lung bases are clear . Liver is normal in size and configuration. Spleen and pancreas are normal in size and configuration. No focal masses are identified. The gallbladder is normal. There is no evidence of biliary ductal dilatation. The adrenal glands are normal. Both kidneys show excretion of contrast without evidence of hydronephrosis or focal masses. The urinary bladder is distended. The bowel gas pattern is nonobstructive. Significant amount of fecal material is seen in the colon. Appendix is not clearly visualized. No evidence of intra-abdominal mass or retroperitoneal lymphadenopathy. Trace amount of fluid is seen in the pelvis. The visualized bones are unremarkable. IMPRESSION: 1. No evidence of acute intra-abdominal and intrapelvic pathology. 2. Urinary bladder is distended. 3. Nonobstructive bowel gas pattern with significant amount of feces in the colon. 4. No evidence of intra-abdominal mass or retroperitoneal lymphadenopathy. 5. Trace amount of fluid in the pelvis of uncertain etiology. Finalized by Nathan Crews MD on 07/08/2023 5:41 PM Normal [facility] CT BRAIN WO CONTon 3 CT BRAIN WO CONT CT BRAIN WO CONT STUDY: CT HEAD WITHOUT CONTRAST CLINICAL HISTORY: Headache and weight loss COMPARISON: None. TECHNIQUE: CT head was performed without contrast utilizing axial reconstruction with images reviewed in bone and brain windows. Automated exposure control was utilized. FINDINGS: * No acute hemorrhage, midline shift, nor edema. * Large CSF space posterior fossa consistent ruy Cisterna magna * Ventricles and cisterns are unremarkable. * Bone images of the calvarium are normal IMPRESSION: * Unremarkable unenhanced CT brain * Ruy Cisterna magna All CT scans at this facility use dose modulation, iterative reconstruction, and/or weight based dosing when appropriate to reduce radiation dose to as low as reasonably achievable. Finalized by José Manuel Webster MD on 07/08/2023 5:26 PM Normal [facility] CT CHEST W CONTon 07-08-2023 CT CHEST W CONT CT CHEST W CONT CLINICAL HISTORY: Unintentional weight loss COMPARISON: None. TECHNIQUE: FINDINGS: The lungs are clear. There is no focal infiltrate edema nor volume loss. No pneumothorax or pleural effusion. There are numerous noncalcified nodules throughout the upper and predominantly lower lobes. These range from 3 to 9 mm in size. These are uncertain etiology. No associated calcifications. No mediastinal nor hilar adenopathy. Pulmonary arteries and thoracic aorta normal in size. No pericardial or pleural effusion. Thoracic spine satisfactory alignment IMPRESSION: Numerous noncalcified pulmonary nodules probably granulomatous in etiology. Metastatic disease considered less likely given this patient's age but not excluded. Given the distribution findings short-term follow-up CT in 3-4 [address] scans at this facility use dose modulation, iterative reconstruction, and/or weight based dosing when appropriate to reduce radiation dose to as low as reasonably achievable. Finalized by José Manuel Webster MD on 07/08/2023 5:38 PM Normal [facility] Glucose Glucometer (BldC) [M ass/Vol]on 07-08-2023 Glucose [Mass/Vol] 199 mg/dL High 65-99 [facility] Glucose [Mass/Vol] 258 mg/dL High 65-99 [facility] HGB A1C (GLYCO-HGB)on 2022 Glucose [Mass/Vol] 358 mg/dL Normal [facility] Comment on above: Performed By: #### C BCA, [facility], 6873-4, 2777-1 #### [facility] ([id number]) [address] [place] [address] #### HA1C #### [facility] ([id number]) [address] [facility], [address] [place] [address] HbA1c (Bld) [Mass fraction] 14.1 % High 4.4-5.6 [facility] Comment on above: Result Comment: NOTE ADA Guidelines Result HgbA1c Normal : less than 5.7 % Prediabetes : 5.7 % to 6.4 % Diabetes : > 6.4 % Use with caution in patients with abnormal hemoglobin variants as the half-life of red blood cells and in vivo glycation rates are affected. Performed By: #### C LAZARA LANG, 6873-4, 2777-1 #### [facility] ([id number]) [address] [place] [address] #### HA1C #### [facility] ([id number]) [address] [place] [address], [address] [place] [address] PHOSPHORUSon 07-08-2023 Phosphate [Mass/Vol] 3.6 mg/dL Normal 2.4-4.9 [facility] Comment on above: Performed By: #### C LAZARA LANG, 6873-4, 2777-1 #### [facility] ([id number]) [facility][note 2][address] [place] [address] #### HA1C #### [facility] ([id number]) [address] [place] [address], [address] [place] [address] URN MACROSCOPIC NURon 2022 BILIRUBIN EMILY Negative Normal NEG [facility] Comment on above: Performed By: #### N UM #### [facility] ([id number]) [address] [place] [address] BLOOD/HGB EMILY Negative Normal NEG [facility] Comment on above: Performed By: #### N UM #### [facility] ([id number]) [address] [place] [address] GLUCOSE EMILY 500 mg/dL Abnormal NEG [facility] Comment on above: Performed By: #### N UM #### [facility] ([id number]) [address] [place] [address] KETONES EMILY >=160 Abnormal NEG [facility] Comment on above: Performed By: #### N UM #### [facility] ([id number]) [address] [place] [address] LEUKOCYTE ESTERASE EMILY Negative Normal NEG [facility] Comment on above: Performed By: #### N UM #### [facility] ([id number]) [address] [place] [address] NITRITE EMILY Negative Normal NEG [facility] Comment on above: Performed By: #### N UM #### [facility] ([id number]) [address] [place] [address] PH EMILY 6.0 Normal 5.0-8.5 [facility] Comment on above: Performed By: #### N UM #### [facility] ([id number]) [address] [place] [address] PROTEIN EMILY Negative Normal NEG [facility] Comment on above: Performed By: #### N UM #### [facility] ([id number]) [address] [place] [address] SPECIFIC GRAVITY EMILY 1.010 Normal 1.003-1 .03 5 [facility] Comment on above: Performed By: #### N UM #### [facility] ([id number]) [address] [place] [address] UROBILINOGEN EMILY 0.2 eu/dL Normal <1.1 [facility] Comment on above: Performed By: #### N UM #### [facility] ([id number]) [address] [place] [address] Urine collection deviceon ER EXTRA URINES ER EXTRA URINE ORDER IN PROCESS Normal [facility] Comment on above: Performed By: #### 8 0334-6 #### [facility] ([id number]) [address] [place] [address] VENOUS BLOOD GASon TIFFANI'S TEST Normal [facility] Comment on above: Performed By: #### 8 0334-6 #### [facility] ([id number]) [address] [place] [address] BASE,DEFICIT 3.0 MMOL/L High 0.0-2.0 [facility] Comment on above: Performed By: #### 8 0334-6 #### [facility] ([id number]) [address] [place] [address] Body temperature 98.6 [degF] Normal 37.0 [facility] Comment on above: Performed By: #### 8 0334-6 #### [facility] ([id number]) [address] [place] [address] HCO3 (Bld) [Moles/Vol] 21.8 mmol/L Normal 20.0-24.0 [facility] Comment on above: Performed By: #### 8 0334-6 #### [facility] ([id number]) [address] [place] [address] INSP. O2 CONC. 21 % Normal [facility] Comment on above: Performed By: #### 8 0334-6 #### [facility] ([id number]) [facility] [place][note 2][address] [place] [address] Oxygen saturation in Blood 51.0 % Low >80.0 [facility] Comment on above: Performed By: #### 8 0334-6 #### [facility] ([id number]) [address] [place] [address] OXYGEN SOURCE [employer] Normal [facility] Comment on above: Performed By: #### 8 0334-6 #### [facility] ([id number]) [address] [place] [address] PCO2, VENOUS 39.3 MMHG Normal 35-50 [facility] Comment on above: Performed By: #### 8 0334-6 #### [facility] ([id number]) [address] [place] [address] PH, VENOUS 7.353 Normal 7.320-7.42 0 [facility] Comment on above: Performed By: #### 8 0334-6 #### [facility] ([id number]) [address] [place] [address] PO2, VENOUS 28 MMHG Low 30-50 [facility] Comment on above: Performed By: #### 8 0334-6 #### [facility] ([id number]) [address] [place] [address] SAMPLE SITE [employer] Normal [facility] Comment on above: Performed By: #### 8 0334-6 #### [facility] ([id number]) [address] [place] [address] SAMPLE TYPE VENOUS Normal [facility] Comment on above: Performed By: #### 8 0334-6 #### [facility] ([id number]) [address] [place] [address] Strep Screen Group A Throato n 09-04-2020 S. pyogenes Ag IA Ql (Unsp spec) Rapid Strep A negative. A negative Rapid Group A Strep Screen result does not rule out the possibility of Group A Streptococci in the specimen. A Group A Strep DNA test is available upon request. [employer] Phone: Special Requests NOT REPORTED [employer] Phone: Specimen Description .THROAT [employer] Phone: Basic Metabolic Panelon 03-09 Anion gap [Moles/Vol] 7 mmol/L Low 9 - 17 mmol/L [place] Bun/Cre Ratio NOT REPORTED [place], [place] Calcium [Mass/Vol] 9.7 mg/dL 8.6 - 10. 4 mg/dL [place] Chloride [Moles/Vol] 108 mmol/L High 98 - 10 7 mmol/L [place] CO2 [Moles/Vol] 25 mmol/L 20 - 31 mmol/L [place] Creatinine [Mass/Vol] 0.6 mg/dL Low 0.7 - 1.2 mg/dL [place] GFR >60 >60 mL/min [place] GFR Non- >60 >60 mL/min [place] GFR/1.73 sq M predicted among non-blacks MDRD (S/P/Bld) [Vol rate/Area] NOT REPORTED [place] GFR/1.73 sq M predicted among non-blacks MDRD (S/P/Bld) [Vol rate/Area] [place] Comment on above: Average GFR for 20-2 9 years old: 116 mL/min/1.73sq m Chronic Kidney Disease: <60 mL/min/1.73sq m Kidney failure: <15 mL/min/1.73sq m eGFR calculated using average adult body mass. Additional eGFR calculator available at: http://www.[employer]/multiple_crcl_2012.htm Glucose [Mass/Vol] 111 mg/dL High 70 - 99 mg/dL [place] Interpretation and review of laboratory results Abnormal [place] Potassium [Moles/Vol] 4.1 mmol/L 3.7 - 5.3 mmol/L [place] Sodium [Moles/Vol] 140 mmol/L 135 - 144 mmol/L [place] Urea nitrogen [Mass/Vol] 9 mg/dL 6 - 20 mg/dL [place] Basic Metabolic Profon 03-23 (cont.) Normal [facility] Comment on above: Result Comment: Aver age GFR for 20-29 years old: 116 mL/min/1.73sq m Chronic Kidney Disease: <60 mL/min/1.73sq m Kidney failure: <15 mL/min/1.73sq m eGFR calculated using average adult body mass. Additional eGFR calculator available at: http://www.[employer]_crcl_2012.htm Performed By: #### C DARIAN SOTELO TROPI, BMP #### [facility] [address] [place] [address] Network Operations Lead: Juan Anthony MD Anion gap [Moles/Vol] 7 mmol/L Low 9-17 [facility] Comment on above: Performed By: #### C DARIAN SOTELO TROPI, BMP #### [facility] [address] [place] [address] Network Operations Lead: Juan Anthony MD Calcium [Mass/Vol] 9.7 mg/dL Normal 8.6-10.4 [facility] Comment on above: Performed By: #### C DP, DIME, TROPI, BMP #### [facility] [address] [place] [address] Network Operations Lead: Juan Anthony MD Chloride [Moles/Vol] 108 mmol/L High 98-107 [facility] Comment on above: Performed By: #### C DP, DIME, TROPI, BMP #### [facility] [address] [place] [address] Network Operations Lead: Juan Anthony MD CO2 [Moles/Vol] 25 mmol/L Normal 20-31 [facility] Comment on above: Performed By: #### C DP, DIME, TROPI, BMP #### [facility] [address] [place] [address] Network Operations Lead: Juan Anthony MD Creatinine [Mass/Vol] 0.60 mg/dL Low 0.70-1.20 [facility] Comment on above: Performed By: #### C DP, DIME, TROPI, BMP #### [facility] [address] [place] [address] Network Operations Lead: Juan Anthony MD GFR, Amer >60 Normal >60 [facility] Comment on above: Performed By: #### C DP, DIME, TROPI, BMP #### [facility] [address] [place] [address] Network Operations Lead: Juan Anthony MD GFR,non Amer >60 Normal >60 [facility] Comment on above: Performed By: #### C DP, DIME, TROPI, BMP #### [facility] [address] [place] [address] Network Operations Lead: Juan Anthony MD Glucose [Mass/Vol] 111 mg/dL High 70-99 [facility] Comment on above: Performed By: #### C DPMIRZAE TROPI, BMP #### [facility] [address] [place] [address] Network Operations Lead: Juan Anthony MD Potassium [Moles/Vol] 4.1 mmol/L Normal 3.7-5.3 [facility] Comment on above: Performed By: #### C DP, DIME, TROPI, BMP #### [facility] [address] [place] [address] Network Operations Lead: Juan Anthony MD Sodium [Moles/Vol] 140 mmol/L Normal 135-144 [facility] Comment on above: Performed By: #### C DP, DIME, TROPI, BMP #### [facility] [address] [place] [id number] Network Operations Lead: Juan Anthony MD Urea nitrogen [Mass/Vol] 9 mg/dL Normal -20 [facility] Comment on above: Performed By: #### C DP, DIME, TROPI, BMP #### [facility] [address] [place] [address] Network Operations Lead: Juan Anthony MD BUN/CRE Ratio NOT REPORTED Normal -20 [facility] Comment on above: Performed By: #### C DP, DIME, TROPI, BMP #### [facility] [address] [place] [address] Network Operations Lead: Juan Anthony MD Staging: NOT REPORTED Normal [facility] Comment on above: Performed By: #### C DP, DIME, TROPI, BMP #### [facility] [address] [place] [address] Network Operations Lead: Juan Anthony MD CBC Auto Differentialon 03-09 Basophils (Bld) [#/Vol] 0.00 10*3/uL [place] Basophils/100 WBC (Bld) 1 % 0 - 2 % [place] Differential Type NOT REPORTED [place] Eosinophils (Bld) [#/Vol] 0.10 10*3/uL [place] Eosinophils/100 WBC (Bld) 4 % 1 - 4 % [place] Erythrocyte distribution width (RBC) [Ratio] 12.6 % 12.5 - 15.4 % [place] Hematocrit (Bld) [Volume fraction] 45.6 % 41 - 53 % [place] Hemoglobin (Bld) [Mass/Vol] 15.5 g/dL 13.5 - 17.5 g/dL [place] Interpretation and review of laboratory results Abnormal [place] Lymphocytes (Bld) [#/Vol] 1.50 10*3/uL [place] Lymphocytes/100 WBC (Bld) 37 % 25 - 45 % [place] MCH (RBC) [Entitic mass] 30.6 pg 26 - 34 pg [place] MCHC (RBC) [Mass/Vol] 34.0 g/dL 31 - 3 7 g/dL [place] MCV (RBC) [Entitic vol] 90.1 fL 80 - 100 fL [place] Monocytes (Bld) [#/Vol] 0.40 10*3/uL [place] Monocytes/100 WBC (Bld) 10 % High 2 - 8 % [place] Platelet mean volume (Bld) [Entitic vol] 8.2 fL 6 - 12 fL [place] Platelets (Bld) [#/Vol] 171 10*3/uL [place] Platelets (Bld) [#/Vol] NOT REPORTED [place] RBC (Bld) [#/Vol] 5.06 10*6/uL 4.5 - 5.9 m/uL [place] RBC morphology finding Nom (Bld) NOT REPORTED [place] Segmented neutrophils/100 WBC (Bld) 48 % 34 - 64 % [place] Segs Absolute 2.00 [place] WBC (Bld) [#/Vol] NOT REPORTED per 100 WBC [place] WBC (Bld) [#/Vol] 4.1 10*3/uL [place] WBC Morphology NOT REPORTED [place] CBC with Diffon 03-23-2020 Abs. Basophil 0.00 k/uL Normal 0.0-0.2 [facility] Comment on above: Performed By: #### C DPDARIAN TROPI, BMP #### [facility] [address] [place] [address] Network Operations Lead: Juan Anthony MD Abs.Neutrophil (Seg) 2.00 k/uL Normal 1.8-8.0 [facility] Comment on above: Performed By: #### C DPMIRZAE TROPI, BMP #### [facility] [address] [place] [address] Network Operations Lead: Juan Anthony MD Basophils/100 WBC (Bld) 1 % Normal 0-2 [facility] Comment on above: Performed By: #### C DPMIRZAE TROPI, BMP #### [facility] [address] [place] [address] Network Operations Lead: Juan Anthony MD Eosinophils (Bld) [#/Vol] 0.10 10*3/uL Normal 0.0-0.4 [facility] Comment on above: Performed By: #### C DPDARIAN TROPI, BMP #### [facility] [address] [place] [address] Network Operations Lead: Juan Anthony MD Eosinophils/100 WBC (Bld) 4 % Normal 1-4 [facility] Comment on above: Performed By: #### C DP, DIME, TROPI, BMP #### [facility] [address] [place] [address] Network Operations Lead: Juan Anthony MD Erythrocyte distribution width (RBC) [Ratio] 12.6 % Normal 12.5-15.4 [facility] Comment on above: Performed By: #### C DP, DIME, TROPI, BMP #### [facility] [address] [place] [address] Network Operations Lead: Juan Anthony MD Hematocrit (Bld) [Volume fraction] 45.6 % Normal 41-53 [facility] Comment on above: Performed By: #### C DP, DIME, TROPI, BMP #### [facility] [address] [place] [address] Network Operations Lead: Juan Anthony MD Hemoglobin (Bld) [Mass/Vol] 15.5 g/dL Normal 13.5-17.5 [facility] Comment on above: Performed By: #### C DP, DIME, TROPI, BMP #### [facility] [address] [place] [address] Network Operations Lead: Juan Anthony MD Lymphocytes (Bld) [#/Vol] 1.50 10*3/uL Normal 1.2-5.2 [facility] Comment on above: Performed By: #### C DP, DIME, TROPI, BMP #### [facility] [address] [place] [address] Network Operations Lead: Juan Anthony MD Lymphocytes/100 WBC (Bld) 37 % Normal 25-45 [facility] Comment on above: Performed By: #### C DP, DIME, TROPI, BMP #### [facility] [address] [place] [address] Network Operations Lead: Juan Anthony MD MCH (RBC) [Entitic mass] 30.6 pg Normal 26-34 [facility] Comment on above: Performed By: #### C DP, DIME, TROPI, BMP #### [facility] [address] [place] [address] Network Operations Lead: Juan Anthony MD MCHC (RBC) [Mass/Vol] 34.0 g/dL Normal 31-37 [facility] Comment on above: Performed By: #### C DP, DIME, TROPI, BMP #### [facility] [address] [place] [address] Network Operations Lead: Juan Anthony MD MCV (RBC) [Entitic vol] 90.1 fL Normal 80-100 [facility] Comment on above: Performed By: #### C DP, DIME, TROPI, BMP #### [facility] [address] [place] [address] Network Operations Lead: Juan Anthony MD Monocytes (Bld) [#/Vol] 0.40 10*3/uL Normal 0.1-1.4 [facility] Comment on above: Performed By: #### C DP, DIME, TROPI, BMP #### [facility] [address] [place] [address] Network Operations Lead: Juan Anthony MD Monocytes/100 WBC (Bld) 10 % High 2-8 [facility] Comment on above: Performed By: #### C DP, DIME, TROPI, BMP #### [facility] [address] [place] [address] Network Operations Lead: Juan Anthony MD Neutrophil (Seg) 48 % Normal 34-64 [facility] Comment on above: Performed By: #### C DP, DIME, TROPI, BMP #### [facility] [address] [place] [address] Network Operations Lead: Juan Anthony MD Platelet mean volume (Bld) [Entitic vol] 8.2 fL Normal 6.0-12.0 [facility] Comment on above: Performed By: #### C DP, DIME TROPI, BMP #### [facility] [address] [place] [address] Network Operations Lead: Juan Anthony MD Platelets (Bld) [#/Vol] 171 10*3/uL Normal 140-450 [facility] Comment on above: Performed By: #### C DP, DARIAN TROPI, BMP #### [facility] [address] [place] [address] Network Operations Lead: Juan Anthony MD RBC (Bld) [#/Vol] 5.06 10*6/uL Normal 4.5-5.9 [facility] Comment on above: Performed By: #### C DEEPAK, DIME TROPI, BMP #### [facility] [address] [place] [address] Network Operations Lead: Juan Anthony MD WBC (Bld) [#/Vol] 4.1 10*3/uL Low 4.5-13.5 [facility] Comment on above: Performed By: #### C DARIAN SOTELO TROPI, BMP #### [facility] [address] [place] [address] Network Operations Lead: Juan Anthony MD Abs.Imm.Granulocyte NOT REPORTED Normal 0.00-0.30 [facility] Comment on above: Performed By: #### C DPMIRZAE TROPI, BMP #### [facility] [address] [place] [address] Network Operations Lead: Juan Anthony MD Auto Diff Performed NOT REPORTED Normal [facility] Comment on above: Performed By: #### C DARIAN SOTELO, TROPI, BMP #### [facility] [address] [place] [address] Network Operations Lead: Juan Anthony MD Immature granulocytes (Bld) [#/Vol] NOT REPORTED Normal 0 [facility] Comment on above: Performed By: #### C DP, DIME, TROPI, BMP #### [facility] [address] [place] [address] Network Operations Lead: Juan Anthony MD NRBC Automated NOT REPORTED Normal [facility] Comment on above: Performed By: #### C DP, DIME, TROPI, BMP #### [facility] [address] [place] [address] Network Operations Lead: Juan Anthony MD Platelets (Bld) [#/Vol] NOT REPORTED Normal [facility] Comment on above: Performed By: #### C DP, DIME, TROPI, BMP #### [facility] [address] [place] [address] Network Operations Lead: Juan Anthony MD RBC morphology finding Nom (Bld) NOT REPORTED Normal [facility] Comment on above: Performed By: #### C DP, DIME, TROPI, BMP #### [facility] [address] [place] [address] Network Operations Lead: Juan Anthony MD WBC Morphology NOT REPORTED Normal [facility] Comment on above: Performed By: #### C DP, DIME, TROPI, BMP #### [facility] [address] [place] [address] Network Operations Lead: Juan Anthony MD D-Dimer Teston 03-23-2020 D-Dimer Test <0.19 Normal [facility] Comment on above: Result Comment: When combined with a low clinical probability, a D dimer value of <0.50 mg/L FEU is considered negative for DVT and PE (negative predictive value of 98%, sensitivity of 97%). If this test is not being used to help rule out DVT and PE, then the following reference range should be utilized: 0.00 - 1.02 mg/L FEU. The [employer] D-Dimer assay is intended for use as an aid in the diagnosis of venous thromboembolism (DVT and PE) and the results should be interpreted in conjunction with the patient's medical history, clinical presentation, and other findings. Elevated levels of D-dimer activity can be seen in any state of coagulation activation and is not recommended in patients with therapeutic dose anticoagulant therapy for >24 hours, fibrinolytic therapy within the previous 7 days, trauma or surgery within the previous 4 weeks, disseminated malignancies, aortic aneurysm, sepsis, severe infections, pneumonia, severe skin infections, liver cirrhosis, advanced age, coronary disease, diabetes, and . A very low percentage of patients with DVT may yield D-dimer results below the cutoff of 0.5 mg/L FEU. This is known to be more prevalent in patients with distal DVT. Performed By: #### C DARIAN SOTELO TROPI, BMP #### [facility] [address] [place] [address] Network Operations Lead: Juan Anthony MD D-Dimer, Quantitativeon 03-09 D-Dimer, Quant <0.19 mg/L FEU [facility] [place] Comment on above: When combined with a low clinical probability, a D dimer value of <0.50 mg/L FEU is considered negative for DVT and PE (negative predictive value of 98%, sensitivity of 97%). If this test is not being used to help rule out DVT and PE, then the following reference range should be utilized: 0.00 - 1.02 mg/L FEU. The [employer] D-Dimer assay is intended for use as an aid in the diagnosis of venous thromboembolism (DVT and PE) and the results should be interpreted in conjunction with the patient's medical history, clinical presentation, and other findings. Elevated levels of D-dimer activity can be seen in any state of coagulation activation and is not recommended in patients with therapeutic dose anticoagulant therapy for >24 hours, fibrinolytic therapy within the previous 7 days, trauma or surgery within the previous 4 weeks, disseminated malignancies, aortic aneurysm, sepsis, severe infections, pneumonia, severe skin infections, liver cirrhosis, advanced age, coronary disease, diabetes, and . A very low percentage of patients with DVT may yield D-dimer results below the cutoff of 0.5 mg/L FEU. This is known to be more prevalent in patients with distal DVT. Otheron 03-23-2020 Immature granulocytes (Bld) [#/Vol] NOT REPORTED [place] Troponinon 03-23-2020 Troponin I.cardiac [Mass/Vol] ng/mL Normal 0-22 [facility] Comment on above: Result Comment: High Sensitivity Troponin values cannot be compared with other Troponin methodologies. Patients with high levels of Biotin oral intake (i.e >5mg/day) may have falsely decreased Troponin levels. Samples collected within 8 hours of biotin intake may require additional information for diagnosis. Performed By: #### C DPDARIAN TROPI, BMP #### [facility] [address] [place], [place] [id number] Network Operations Lead: Juan Anthony MD Troponin I.cardiac [Mass/Vol] NOT REPORTED Normal <0.03 [facility] Comment on above: Performed By: #### C DPMIRZAE TROPI, BMP #### [facility] [address] [place], [place] [id number] Network Operations Lead: Juan Anthony MD Troponin I.cardiac [Mass/Vol] NOT REPORTED [place] Troponin T.cardiac [Mass/Vol] NOT REPORTED <0.03 ng/mL [place] Troponin, High Sensitivity <6 0 - 22 ng/L [place] Comment on above: High Sensitivity Troponin values cannot be compared with other Troponin methodologies. Patients with high levels of Biotin oral intake (i.e >5mg/day) may have falsely decreased Troponin levels. Samples collected within 8 hours of biotin intake may require additional information for diagnosis. XR CHEST (2 VW)on 03-23-2020 XR CHEST (2 VW) EXAMINATION: TWO XRAY VIEWS OF THE CHEST 03/23/2020 10:52 am COMPARISON: 03/10/2013 HISTORY: ORDERING SYSTEM PROVIDED HISTORY: chest pain TECHNOLOGIST PROVIDED HISTORY: chest pain Reason for Exam: Chest pain Acuity: Acute Type of Exam: Initial FINDINGS: Frontal and lateral views of the chest are submitted for review. The cardiac silhouette is normal in size. Lung parenchyma is clear without focal airspace consolidation, sizeable pleural effusion, or pneumothorax. Trachea is midline. Osseous structures and soft tissues are grossly intact. IMPRESSION: No evidence for acute cardiopulmonary pathology Interpreted by: Alfonso Covarrubias MD Signed by: Alfonso Covarrubias MD 03/23/20 Final result Normal [facility] Incoming Radiant Results From [employer] - 03/23/2020 11:05 AM EDT EXAMINATION: TWO XRAY VIEWS OF THE CHEST 03/23/2020 10:52 am COMPARISON: 03/10/2013 HISTORY: ORDERING SYSTEM PROVIDED HISTORY: chest pain TECHNOLOGIST PROVIDED HISTORY: chest pain Reason for Exam: Chest pain Acuity: Acute Type of Exam: Initial FINDINGS: Frontal and lateral views of the chest are submitted for review. The cardiac silhouette is normal in size. Lung parenchyma is clear without focal airspace consolidation, sizeable pleural effusion, or pneumothorax. Trachea is midline. Osseous structures and soft tissues are grossly intact. IMPRESSION: No evidence for acute cardiopulmonary pathology [place] No evidence for acut e cardiopulmonary pathology [place] EXAMINATION: TWO XRA Y VIEWS OF THE CHEST 03/23/2020 10:52 am COMPARISON: 03/10/2013 HISTORY: ORDERING SYSTEM PROVIDED HISTORY: chest pain TECHNOLOGIST PROVIDED HISTORY: chest pain Reason for Exam: Chest pain Acuity: Acute Type of Exam: Initial FINDINGS: Frontal and lateral views of the chest are submitted for review. The cardiac silhouette is normal in size. Lung parenchyma is clear without focal airspace consolidation, sizeable pleural effusion, or pneumothorax. Trachea is midline. Osseous structures and soft tissues are grossly intact. [place] CT FACIAL BONES WO CONTRASTo n 01-18-2019 CT FACIAL BONES WO CONTRAST EXAMINATION: CT OF THE FACE WITHOUT CONTRAST 01/18/2019 11:50 am TECHNIQUE: CT of the face was performed without the administration of intravenous contrast. Multiplanar reformatted images are provided for review. Dose modulation, iterative reconstruction, and/or weight based adjustment of the mA/kV was utilized to reduce the radiation dose to as low as reasonably achievable. COMPARISON: Facial bones radiograph 01/18/2019 HISTORY: ORDERING SYSTEM PROVIDED HISTORY: jaw injury TECHNOLOGIST PROVIDED HISTORY: Reason for Exam: pt hit rt jaw on corner of a desk yesterday, rt jaw pain Acuity: Unknown Type of Exam: Unknown FINDINGS: FACIAL BONES: Intact maxilla, pterygoid plates, and zygomatic arches. Intact nasal bones and maxillary nasal processes. Intact mandible. Anatomic alignment of the mandibular condyles. Presence of a few dental fillings. Dental cavity in the right 2nd mandibular molar. ORBITS: Intact orbital hensley and rims. Intact globes. Normal extraocular muscles, optic nerve sheath complexes, and lacrimal glands. No retrobulbar hematoma nor mass. SINUSES/MASTOIDS: Polyp or mucous retention cyst in a posterior left ethmoid sinus. Minimal mucosal thickening in the bilateral maxillary sinuses. Otherwise normally pneumatized and aerated without fracture. SOFT TISSUES: No obvious acute soft tissue abnormality. Limited imaging of the intracranial contents without obvious acute abnormality. Incidental note of ruy cisterna magna or an arachnoid cyst in the midline posterior cranial fossa. IMPRESSION: 1. No acute findings in the face. Specifically, no findings of right mandible injury. 2. Cavity in the right 2nd mandibular molar, potentially a source of right jaw pain. Interpreted by: Jorge Mays MD Signed by: Jorge Mays MD 01/18/19 Final result Normal [facility] XR FACIAL BONES (MIN 3 VIEWS )on 01-18-2019 XR FACIAL BONES (MIN 3 VIEWS ) EXAMINATION: 3 XRAY VIEWS OF THE FACIAL BONES 01/18/2019 10:40 am COMPARISON: None HISTORY: ORDERING SYSTEM PROVIDED HISTORY: right jaw injury TECHNOLOGIST PROVIDED HISTORY: right jaw injury Reason for Exam: Pain Acuity: Acute Type of Exam: Initial FINDINGS: No obvious acute fracture. Apparent anatomic alignment of the temporomandibular joints. A few dental fillings in place. The paranasal sinuses and mastoid air cells appear normally pneumatized and aerated. No obvious acute soft tissue abnormality. IMPRESSION: No definite acute findings in the face. Consider further evaluation with CT if there are clinical findings of fracture. Interpreted by: Jorge Mays MD Signed by: Jorge Mays MD 01/18/19 Final result Normal [facility] Vital Signs Date Time Vital Sign Value Performing Clinician Facility 03-18-2025 16:33-0400 Body height 182.88 cm Machelle Woodward [employer] APPLICATION[employer] SPECIALIST Work Phone: [facility] 03-18-2025 16:33-0400 Body mass index (BMI) [Ratio] 24.1 kg/m2 Machelle Woodward [employer] APPLICATION[employer] SPECIALIST Work Phone: [facility] 03-18-2025 16:33-0400 Body weight 80.8 kg Machelle Woodward [employer]TR[employer] APPLICATIONS SPECIALIST Work Phone: [facility] 03-18-2025 16:33-0400 Diastolic blood pressure 95 mm[Hg] Machelle Arteagapaty [employer] APPLICATIONS SPECIALIST Work Phone: [facility] 03-18-2025 16:33-0400 Heart rate 94 /min Machelle Arteagapaty [employer] APPLICATION[employer] SPECIALIST Work Phone: [facility] 03-18-2025 16:33-0400 Respiratory rate 18 /min Machelle Arteagapaty [employer] APPLICATIONS SPECIALIST Work Phone: [facility] 03-18-2025 16:33-0400 SaO2% (BldA) [Mass fraction] 97 % Machelle Woodward [employer] APPLICATIONS SPECIALIST Work Phone: [facility] 03-18-2025 16:33-0400 Systolic blood pressure 127 mm[Hg] Machelle Arteagapaty [employer]OUND APPLICATIONS SPECIALIST Work Phone: [facility] 02-16-2025 15:59-0400 Body height 182.88 cm Machelle Arteagapaty [employer] APPLICATIONS SPECIALIST Work Phone: [facility] 02-16-2025 15:59-0400 Body mass index (BMI) [Ratio] 24.3 kg/m2 Machelle Woodward APRN Work Phone: [facility] 02-16-2025 15:59-0400 Body temperature 98.2 [degF] Machelle Parhamlyly [employer] APPLICATION[employer] SPECIALIST Work Phone: [facility] 02-16-2025 15:59-0400 Body weight 81.19 kg Machelle Woodward [employer] APPLICATION[employer] SPECIALIST Work Phone: [facility] 02-16-2025 15:59-0400 Diastolic blood pressure 82 mm[Hg] Machelle Woodward [employer] APPLICATIONS SPECIALIST Work Phone: [facility] 02-16-2025 15:59-0400 Heart rate 98 /min Machelle Woodward [employer] APPLICATIONS SPECIALIST Work Phone: [facility] 02-16-2025 15:59-0400 SaO2% (BldA) [Mass fraction] 99 % Machelle Woodward [employer] APPLICATIONS SPECIALIST Work Phone: [facility] 02-16-2025 15:59-0400 Systolic blood pressure 122 mm[Hg] Machelle Arteagapayt [employer]TRASOUND APPLICATIONS SPECIALIST Work Phone: [facility] 12-10-2024 14:54-0400 Body height 182.88 cm [facility] 12-10-2024 14:54-0400 Body mass index (BMI) [Ratio] 24.4 kg/m2 [facility] 12-10-2024 14:54-0400 Body weight 81.6 kg [facility] 12-10-2024 14:54-0400 Diastolic blood pressure 78 mm[Hg] [facility] 12-10-2024 14:54-0400 Heart rate 96 /min [facility] 12-10-2024 14:54-0400 Respiratory rate 18 /min [facility] 12-10-2024 14:54-0400 SaO2% (BldA) [Mass fraction] 98 % [facility] 12-10-2024 14:54-0400 Systolic blood pressure 119 mm[Hg] [facility] 08-29-2024 10:27-0500 Body height 182.88 cm PHYSICIAN [facility] 08-29-2024 10:27-0500 Body mass index (BMI) [Ratio] 21.4 kg/m2 PHYSICIAN [facility] 08-29-2024 10:27-0500 Body temperature 98.4 [degF] PHYSICIAN NO [facility] 08-29-2024 10:27-0500 Body weight 71.78 kg PHYSICIAN NO [facility] 08-29-2024 10:27-0500 Diastolic blood pressure 70 mm[Hg] PHYSICIAN NO [facility] 08-29-2024 10:27-0500 Heart rate 110 /min PHYSICIAN NO [facility] 08-29-2024 10:27-0500 SaO2% (BldA) [Mass fraction] 100 % PHYSICIAN NO [facility] 08-29-2024 10:27-0500 Systolic blood pressure 98 mm[Hg] PHYSICIAN NO [facility] 08-27-2024 17:29-0500 Respiratory rate 18 /min Tong Champion MD Work Phone: [facility] [email or web address] [facility] 08-27-2024 16:03-0500 Body temperature 98.4 [degF] Tong Champion [facility] 08-27-2024 16:03-0500 Diastolic blood pressure 77 mm[Hg] Tong Champion MD Work Phone: [facility] [employer] 08-27-2024 16:03-0500 Heart rate 71 /min Tong Champion MD Work Phone: [facility] [employer] 08-27-2024 16:03-0500 SaO2% (BldA) [Mass fraction] 97 % Tong Champion MD Work Phone: [facility] [employer] 08-27-2024 16:03-0500 Systolic blood pressure 110 mm[Hg] Tong Champion MD Work Phone: [facility] 08-27-2024 06:00-0500 Body mass index (BMI) [Ratio] 21.83 kg/m2 Tong Champion MD Work Phone: [facility] 08-27-2024 06:00-0500 Body weight 73 kg Tong Champion MD Work Phone: [facility] [employer] 08-21-2024 20:00-0500 Body height 182.9 cm Tong Champion MD Work Phone: [facility] 08-21-2024 15:40-0500 Body temperature 98.6 [degF] PHYSICIAN NO [facility] 08-21-2024 15:40-0500 Diastolic blood pressure 58 mm[Hg] PHYSICIAN NO [facility] 08-21-2024 15:40-0500 Heart rate 94 /min PHYSICIAN NO [facility] 08-21-2024 15:40-0500 Respiratory rate 14 /min PHYSICIAN NO [facility] 08-21-2024 15:40-0500 SaO2% (BldA) [Mass fraction] 99 % PHYSICIAN NO [facility] 08-21-2024 15:40-0500 Systolic blood pressure 101 mm[Hg] PHYSICIAN NO [facility] 08-21-2024 06:23-0500 Body weight 76.9 kg PHYSICIAN NO [facility] 08-15-2024 14:20-0500 Body height 182.88 cm PHYSICIAN NO [facility] 08-08-2024 23:40-0500 Body temperature 98 [degF] PHYSICIAN NO [facility] 08-08-2024 23:40-0500 Diastolic blood pressure 86 mm[Hg] PHYSICIAN NO [facility] 08-08-2024 23:40-0500 Heart rate 98 /min PHYSICIAN NO [facility] 08-08-2024 23:40-0500 Respiratory rate 20 /min PHYSICIAN NO [facility] 08-08-2024 23:40-0500 SaO2% (BldA) [Mass fraction] 96 % PHYSICIAN NO [facility] 08-08-2024 23:40-0500 Systolic blood pressure 136 mm[Hg] PHYSICIAN NO [facility] 08-08-2024 19:47-0500 Body height 182.88 cm PHYSICIAN NO [facility] 08-08-2024 19:47-0500 Body weight 70.3 kg PHYSICIAN NO [facility] 08-05-2024 17:26-0500 Body temperature 97.7 [degF] Faby Dinero MD Work Phone: 0(900)[phone] [place] [address] 08-05-2024 17:26-0500 Diastolic blood pressure 67 mm[Hg] Faby Dinero MD Work Phone: 7(702)124-396624 [place] [address] 08-05-2024 17:26-0500 Heart rate 116 /min Faby Dinero MD Work Phone: 4(435)238-838378 [place] [address] 08-05-2024 17:26-0500 Respiratory rate 16 /min Faby Dinero MD Work Phone: 7(824)924-013178 [place] [address] 08-05-2024 17:26-0500 SaO2% (BldA) [Mass fraction] 96 % Faby Dinero MD Work Phone: 7(834)[phone] [place] [address] 08-05-2024 17:26-0500 Systolic blood pressure 109 mm[Hg] Faby Dinero MD Work Phone: 7(177)977-309278 [place] [address] 08-04-2024 10:12-0500 Body height 182.9 cm Faby Dinero MD Work Phone: 7(101)[phone] [place] [address] 08-04-2024 10:12-0500 Body mass index (BMI) [Ratio] 20.34 kg/m2 Faby Dinero MD Work Phone: 4(335)[phone] [place] [address] 08-04-2024 10:12-0500 Body weight 68.04 kg Faby Dinero MD Work Phone: 8(362)686-751824 [place] [address] 08-03-2024 19:18-0500 Body temperature 37 Faby Dinero MD Work Phone: 5(979)500-273724 [place] [address] 08-03-2024 19:11-0500 Body temperature 37.0 degrees Celsius ANDRE CABELLO [facility] Comment on above: Performed By: #### [id number] ####TRISH Chirinos ([id number])[facility] ([facility])[address] [place] [address] 08-03-2024 14:53-0500 Body temperature 37 Faby Dinero MD Work Phone: [facility] 08-03-2024 14:47-0500 Body temperature 37.0 degrees Celsius [facility] Comment on above: Performed By: #### [id number] ####TRISH Chirinos ([id number])[facility] ([facility])[address] [place] [address] 08-03-2024 14:15-0500 Body temperature 37 Faby Dinero MD Work Phone: [facility] 08-03-2024 14:05-0500 Body temperature 37.0 degrees Celsius [facility] Comment on above: Performed By: #### [id number] #### TRISH Chirinos ([id number]) [facility] ([facility]) [address] [place] [address] 08-03-2024 13:08-0500 Body temperature 37 Faby Dinero MD Work Phone: [facility] 08-03-2024 12:58-0500 Body temperature 37.0 degrees Celsius [facility] Comment on above: Performed By: #### [id number] #### TRISH Chirinos ([id number]) [facility] ([facility]) [address] [place] [address] 07-31-2024 15:15-0500 Body height 182.88 cm [facility] 07-31-2024 15:15-0500 Body mass index (BMI) [Ratio] 22.9 kg/m2 [facility] 07-31-2024 15:15-0500 Body weight 76.74 kg [facility] 07-31-2024 15:15-0500 Diastolic blood pressure 82 mm[Hg] [facility] 07-31-2024 15:15-0500 Heart rate 86 /min [facility] 07-31-2024 15:15-0500 Respiratory rate 18 /min [facility] 07-31-2024 15:15-0500 SaO2% (BldA) [Mass fraction] 97 % [facility] 07-31-2024 15:15-0500 Systolic blood pressure 133 mm[Hg] [facility] 03-26-2024 16:15-0400 Body height 182.9 cm Ragini Repko ULTRASOUND APPLICATIONS SPECIALIST-DEALERSHIP MANAGER Work Phone: [facility] 03-26-2024 16:15-0400 Body mass index (BMI) [Ratio] 19.67 kg/m2 Ragini Repko ULTRASOUND APPLICATIONS SPECIALIST-DEALERSHIP MANAGER Work Phone: [facility] 03-26-2024 16:15-0400 Body temperature 98.01 [degF] Ragini Repko ULTRASOUND APPLICATIONS SPECIALIST-DEALERSHIP MANAGER Work Phone: [facility] 03-26-2024 16:15-0400 Body weight 65.77 kg Ragini Repko ULTRASOUND APPLICATIONS SPECIALIST-DEALERSHIP MANAGER Work Phone: [facility] 03-26-2024 16:15-0400 Diastolic blood pressure 77 mm[Hg] Ragini Repko ULTRASOUND APPLICATIONS SPECIALIST-DEALERSHIP MANAGER Work Phone: [facility] 03-26-2024 16:15-0400 Heart rate 91 /min Ragini Repko ULTRASOUND APPLICATIONS SPECIALIST-DEALERSHIP MANAGER Work Phone: [facility] 03-26-2024 16:15-0400 Respiratory rate 16 /min Ragini Repko ULTRASOUND APPLICATIONS SPECIALIST-DEALERSHIP MANAGER Work Phone: [facility] 03-26-2024 16:15-0400 SaO2% (BldA) [Mass fraction] 98 % Ragini Repko ULTRASOUND APPLICATIONS SPECIALIST-DEALERSHIP MANAGER Work Phone: [facility] 03-26-2024 16:15-0400 Systolic blood pressure 120 mm[Hg] Ragini Repko ULTRASOUND APPLICATIONS SPECIALIST-DEALERSHIP MANAGER Work Phone: [facility] 10-10-2023 12:07-0400 Body mass index (BMI) [Ratio] 23 kg/m2 Natalie Cai MD Work Phone: [facility] 10-10-2023 12:07-0400 Body weight 76.93 kg Natalie Cai MD Work Phone: [facility] 10-10-2023 12:07-0400 Diastolic blood pressure 73 mm[Hg] Natalie Cai MD Work Phone: [facility] 10-10-2023 12:07-0400 Heart rate 79 /min Natalie Cai MD Work Phone: [facility] 10-10-2023 12:07-0400 Systolic blood pressure 111 mm[Hg] Natalie Cai MD Work Phone: [facility] 09-26-2023 17:09-0400 Body height 182.[address] [facility] 09-26-2023 17:09-0400 Body mass index (BMI) [Ratio] 23.05 kg/m2 [facility] 09-26-2023 17:09-0400 Body weight 77.[address] [facility] 09-13-2023 20:44-0500 SaO2% (BldA) [Mass fraction] 99 % [facility] Comment on above: Performed By: #### CBCA, [facility], 6873-4, 27 77-1 #### [facility] ([id number]) [address] [place] [address] #### HA1C #### [facility] ([id number]) [address] [place] [address], [address] [place] [address] 07-08-2023 22:02-0500 SaO2% (BldA) [Mass fraction] 100 % [facility] Comment on above: Performed By: #### [id number] #### [facility] ([id number]) [address] [place] [address] 09-04-2020 10:21-0500 BMI (Body Mass Index) 25.09 kg/m2 [employer] Phone: 09-04-2020 10:21-0500 Body Temperature 98.2 [degF] [employer]thia[employer] Work Phone: 09-04-2020 10:21-0500 Body weight 83.92 kg [email or web address] Phone: 09-04-2020 10:21-0500 BP Diastolic 80 mm[Hg] [employer] Phone: 09-04-2020 10:21-0500 BP Systolic 131 mm[Hg] [employer] Phone: 09-04-2020 10:21-0500 Height 182.9 cm [employer] [facility] Phone: 09-04-2020 10:21-0500 Pulse (Heart Rate) 70 /min [employer] Phone: 09-04-2020 10:21-0500 Pulse Oximetry 100 % [employer] Phone: 09-04-2020 10:21-0500 Respiratory Rate 16 /min [employer] Phone: 03-23-2020 09:56-0400 BMI (Body Mass Index) 25.09 kg/m2 [employer] 03-23-2020 09:56-0400 Body Temperature 98.6 [degF] [employer] [facility] 03-23-2020 09:56-0400 Body weight 83.92 kg [employer] [place] 03-23-2020 09:56-0400 BP Diastolic 84 mm[Hg] [employer] [place] 03-23-2020 09:56-0400 BP Systolic 125 mm[Hg] [employer] [place] 03-23-2020 09:56-0400 Height 182.9 cm Satya Jacinto [facility] [place] 03-23-2020 09:56-0400 Pulse (Heart Rate) 69 /min Satya Jacinto [facility] 03-23-2020 09:56-0400 Pulse Oximetry 98 % Satya Jacinto [facility] [place] 03-23-2020 09:56-0400 Respiratory Rate 22 /min Satya Jacinto [facility] [place] 09-18-2019 08:26-0400 BMI (Body Mass Index) 25.77 kg/m2 [facility] 09-18-2019 08:26-0400 Body Temperature 98.1 [degF] Rob Jacinto [facility] [place], [place] 09-18-2019 08:26-0400 Body weight 86.18 kg Rob Jacinto [facility] [place] 09-18-2019 08:26-0400 BP Diastolic 71 mm[Hg] Rob Duckworth [facility] [place] , [place] 09-18-2019 08:26-0400 BP Systolic 139 mm[Hg] Rob Duckworth [facility] [place] [facility] [place] 09-18-2019 08:26-0400 Height 182.9 cm [facility] [place] 09-18-2019 08:26-0400 Pulse (Heart Rate) 75 /min Rob Jacinto [facility] 09-18-2019 08:26-0400 Pulse Oximetry 98 % [facility] [place] 09-18-2019 08:26-0400 Respiratory Rate 18 /min Rob Jacinto [facility] [place] 04-08-2019 07:16-0400 BMI (Body Mass Index) 24.41 kg/m2 Eliud Rubio [facility] [place] 04-08-2019 07:16-0400 Body Temperature 98.2 [degF] [facility] [place] 04-08-2019 07:16-0400 Body weight 81.65 kg Eliud Jacinto [facility] [place] 04-08-2019 07:16-0400 BP Diastolic 63 mm[Hg] Eliud Rubio [facility] [place] [facility] [place] 04-08-2019 07:16-0400 BP Systolic 130 mm[Hg] Eliud Jacinto [facility] , [place] 04-08-2019 07:16-0400 Height 182.9 cm Eliud Jacinto [facility] , [place] 04-08-2019 07:16-0400 Pulse (Heart Rate) 66 /min Eliud Jacinto [facility], [place] 04-08-2019 07:16-0400 Pulse Oximetry 98 % Eliud Jacinto [facility] , [place] 04-08-2019 07:16-0400 Respiratory Rate 18 /min Eliud Jacinto [facility], [place] Encounters Encounter Date Encounter Type Care Provider Facility Start: 03-18-2025 End: 03-18-2025 ambulatory Machelle Woodward APRN Work Phone: [facility] Work Phone: Start: 03-18-2025 End: 03-18-2025 Patient encounter procedure Edel [facility] Work Phone: Start: 02-16-2025 End: 02-16-2025 ambulatory Machelle Woodward APRN Work Phone: [facility] Work Phone: Start: 02-16-2025 End: 02-16-2025 Patient encounter procedure Machelle Woodward APRN [facility] Work Phone: Start: 02-03-2025 End: 02-03-2025 ambulatory Machelle Woodward APRN Work Phone: [facility] Work Phone: Start: 02-03-2025 End: 02-03-2025 Patient encounter procedure Karen Alvarez [facility] Work Phone: Start: 01-20-2025 End: 01-20-2025 ambulatory Machelle Woodward APRN Work Phone: [facility] Work Phone: Start: 01-20-2025 End: 01-20-2025 Patient encounter procedure Karen Alvarez -[facility] Work Phone: Start: 12-10-2024 End: 12-10-[address] [facility] Work Phone: Start: 12-10-2024 End: 12-10-2024 Patient encounter procedure [facility] Work Phone: Start: 09-25-2024 End: 09-27-2024 ambulatory TRAVON [facility] Start: 09-10-2024 End: 09-10-2024 ambulatory [facility] Start: 09-01-2024 End: 09-01-2024 ambulatory [facility] Start: 08-29-2024 End: 08-29-2024 ambulatory PHYSICIAN NO [facility] Work Phone: Start: 08-29-2024 End: 08-29-2024 Patient encounter procedure PHYSICIAN NO [facility] Work Phone: Start: 08-21-2024 End: 08-27-2024 Evaluation and management of inpatient Tong Champion MD Work Phone: [address] Ortho/Med Surg Comment on above: Iliacus abscess (HCC ) (Primary Dx); Heart murmur; Psoas abscess (HCC); Staphylococcus aureus infection Start: 08-20-2024 ambulatory NO PCP PCP [facility] Start: 08-15-2024 Non-patient / Non-visit PHYSICIAN NO [facility] Work Phone: Start: 08-14-2024 End: 08-21-2024 Evaluation and management of inpatient PHYSICIAN [facility] [place] [facility] Work Phone: Start: 08-08-2024 End: 08-09-2024 Emergency department patient visit PHYSICIAN [facility] Work Phone: Start: 08-03-2024 End: 08-05-2024 Evaluation and management of inpatient Faby Dinero MD Work Phone: [facility] Comment on above: DKA, type 1, not at goal (Primary Dx); Right inguinal pain Start: 08-03-2024 Critical care ill/injured patient init 30-74 min Lakesha Cecile Joaquín ULTRASOUND APPLICATIONS SPECIALIST-DEALERSHIP MANAGER Work Phone: [facility] Work Phone: Start: 07-31-2024 End: 07-31-[address] [facility] Work Phone: Start: 07-31-2024 End: 07-31-2024 Patient encounter procedure [facility] Work Phone: Start: 03-26-2024 End: 03-26-2024 Office outpatient new 30 minutes Ragini Cecile Navarro ULTRASOUND APPLICATIONS SPECIALIST-DEALERSHIP MANAGER Work Phone: [facility] Comment on above: Cellulitis of finger of left hand (Primary Dx) Start: 01-01-2024 End: 01-01-2024 [facility]phone [facility] Start: 12-13-2023 End: 12-13-2023 Telephone encounter [facility] Start: 11-07-2023 End: 11-07-2023 Refill Natalie Cai MD Work Phone: [facility] Comment on above: Type I diabetes goldy itus with hyperosmolarity, uncontrolled (CMS-HCC) (Primary Dx) Start: 10-10-2023 End: 10-10-2023 Refill Karen Montague [facility] Comment on above: Type I diabetes goldy itus with hyperosmolarity, uncontrolled (CMS-HCC) (Primary Dx) Type 1 diabetes goldy itus with hyperglycemia (CMS-HCC) (Primary Dx) Start: 10-10-2023 End: 10-10-2023 Office consultation new/estab patient 60 min Natalie Cai MD Work Phone: [facility] Comment on above: Diabetes mellitus, n ew onset ([facility]) (Primary Dx); Type I diabetes mellitus with hyperosmolarity, uncontrolled ([facility]) Start: 09-26-2023 End: 09-26-2023 ambulatory CLARISSA Austin [facility] Start: 09-26-2023 End: 09-26-2023 ambulatory [facility] Diab Nurse 1 [facility] [place] [facility] Comment on above: Diabetes mellitus, n ew onset ([facility]) Start: 09-14-2023 End: 09-16-2023 Evaluation and management of inpatient [facility] Start: 09-14-2023 End: 09-16-2023 Evaluation and management of inpatient [facility] Start: 09-13-2023 End: 09-15-2023 [facility] Start: 07-08-2023 End: 07-11-2023 Emergency department patient visit SARAH JOHNSON [facility] Start: 07-08-2023 End: 07-10-2023 Evaluation and management of inpatient NO PCP NO PCP [facility] Start: 09-04-2020 End: 09-04-2020 Emergency department patient visit Cynthia Vinita Ness Work Phone: [facility] ED Comment on above: Stomatitis (Primary Dx) Start: 03-23-2020 End: 03-23-2020 Emergency department patient [facility] Start: 03-23-2020 End: 03-23-2020 Emergency department patient visit [facility] Comment on above: Chest pain, unspecif ied type (Primary Dx) Start: 09-18-2019 End: 09-18-2019 Emergency department patient visit Rob Duckworth Work Phone: [facility] Comment on above: Uvulitis (Primary Dx ) Start: 04-08-2019 End: 04-08-2019 Emergency department patient visit Eliud Rubio Work Phone: [facility] Comment on above: Puncture wound of ri ght foot, initial encounter (Primary Dx) Start: 01-18-2019 End: 01-18-2019 Emergency department patient visit AMI MEJIA [facility] Procedures Date Procedure Procedure Detail Performing Clinician Start: 08-27-2024 Glucose blood reagent strip Rex Yoon MD Work Phone: Start: 08-27-2024 Glucose blood reagent strip Rex Yoon MD Work Phone: Start: 08-27-2024 End: 08-27-2024 Blood count complete auto&auto difrntl wbc Rex Yoon MD Work Phone: Start: 08-27-2024 C-reactive protein Rex Solorzano Work Phone: Start: 08-26-2024 Glucose blood reagent strip Rex Yoon MD Work Phone: Start: 08-26-2024 Glucose blood reagent strip Rex Yoon MD Work Phone: Start: 08-26-2024 Glucose blood reagent strip Rex Yoon MD Work Phone: Start: 08-26-2024 Ct pelvis w/o contrast material Travon Henry MD Work Phone: Start: 08-26-2024 Glucose blood reagent strip Mook Fuad Stan machado DO Work Phone: Start: 08-25-2024 Glucose blood reagent strip Mook Merida Stan machado DO Work Phone: Start: 08-25-2024 Glucose blood reagent strip Mook machado DO Work Phone: Start: 08-25-2024 Glucose blood reagent strip Mook Merida Stan machado DO Work Phone: Start: 08-25-2024 End: 08-25-2024 Basic metabolic panel calcium total Mook James DO Work Phone: Start: 08-25-2024 C-reactive protein Mook James DO Work Phone: Start: 08-24-2024 Glucose blood reagent strip Mook machado DO Work Phone: Start: 08-24-2024 Glucose blood reagent strip Mook machado DO Work Phone: Start: 08-24-2024 Glucose blood reagent strip Mook machado DO Work Phone: Start: 08-24-2024 Glucose blood reagent strip Mook machado DO Work Phone: Start: 08-23-2024 Procalcitonin (pct) Josiane Miwilmer ULTRASOUND APPLICATIONS SPECIALIST - MUSIC INSTRUCTOR Work Phone: Start: 08-23-2024 Glucose blood reagent strip Mook machado DO Work Phone: Start: 08-23-2024 End: 08-23-2024 Assay of lactate Mook James DO Work Phone: Start: 08-23-2024 Glucose blood reagent strip Mook machado DO Work Phone: Start: 08-23-2024 End: 08-23-2024 Assay of lactate Mook James DO Work Phone: Start: 08-23-2024 C-reactive protein Mook James DO Work Phone: Start: 08-23-2024 Assay of lactate Mook James DO Work Phone: Start: 08-22-2024 End: 08-22-2024 Assay of lactate Mook James DO Work Phone: Start: 08-22-2024 Cul prsmptv pthgnc organism scrn w/colony estimj Mook James DO Work Phone: Start: 08-22-2024 Glucose blood reagent strip Mook machado DO Work Phone: Start: 08-22-2024 Radiological guidance prq drg w/plmt cath rs&i Mook James DO Work Phone: Start: 08-22-2024 Glucose blood reagent strip Mook machado DO Work Phone: Start: 08-22-2024 Glucose blood reagent strip Mook machado DO Work Phone: Start: 08-22-2024 Echo tthrc r-t 2d w/wom-mode compl spec&colr d Josiaen Vail ULTRASOUND APPLICATIONS SPECIALIST - MUSIC INSTRUCTOR Work Phone: Start: 08-22-2024 Glucose blood reagent strip Mook machado DO Work Phone: Start: 08-21-2024 C-reactive protein Josiane Vail ULTRASOUND APPLICATIONS SPECIALIST - MUSIC INSTRUCTOR Work Phone: Start: 08-21-2024 Prothrombin time Xenia Ling DO Work Phone: Start: 08-21-2024 Glucose blood reagent strip Mook machado DO Work Phone: Start: 08-21-2024 Blood count complete auto&auto difrntl wbc Josiane Vail ULTRASOUND APPLICATIONS SPECIALIST - MUSIC INSTRUCTOR Work Phone: Start: 08-21-2024 Culture bacterial blood aerobic w/id isolates Josiane Vail ULTRASOUND APPLICATIONS SPECIALIST - MUSIC INSTRUCTOR Work Phone: Start: 08-21-2024 CULTURE, BLOOD 1 Josiane Vail ULTRASOUND APPLICATIONS SPECIALIST - MUSIC INSTRUCTOR Work Phone: Start: 08-20-2024 Computed tomography of abdomen and pelvis with contrast PHYSICIAN NO FAMILY Start: 08-17-2024 CT of pelvis with contrast PHYSICIAN NO FAMILY Start: 08-15-2024 Aerobic microbial culture PHYSICIAN NO F AMILY Start: 08-15-2024 Anaerobic microbial culture PHYSICIAN NO FAMILY Start: 08-15-2024 Bacteria identified in Blood by Culture PHYSICIAN NO FAMILY Start: 08-15-2024 Gram stain microscopy PHYSICIAN NO FAMIL Y Start: 08-15-2024 Computerized tomography guidance PHYSICIAN NO FAMILY Start: 08-15-2024 CT guided percutaneous therapeutic drainage PHYSICIAN NO FAMILY Start: 08-15-2024 Ultrasonography of abdomen PHYSICIAN NO FAMILY Start: 08-05-2024 Glucose quantitative blood xcpt reagent strip Andre Cabello MD Work Phone: Start: 08-05-2024 Glucose quantitative blood xcpt reagent strip Andre Cabello MD Work Phone: Start: 08-05-2024 End: 08-05-2024 Basic metabolic panel calcium total Jerrami C Lydic ULTRASOUND APPLICATIONS SPECIALIST-DEALERSHIP MANAGER Work Phone: Start: 08-04-2024 Glucose quantitative blood xcpt reagent strip Andre Cabello MD Work Phone: Start: 08-04-2024 Glucose quantitative blood xcpt reagent strip Maureen Felder MD Work Phone: Start: 08-04-2024 Glucose quantitative blood xcpt reagent strip Ayan Morse MD Work Phone: Start: 08-04-2024 Basic metabolic panel calcium total Jerrami C Lydic ULTRASOUND APPLICATIONS SPECIALIST-DEALERSHIP MANAGER Work Phone: Start: 08-04-2024 End: 08-04-2024 Glucose quantitative blood xcpt reagent strip Maureen Felder MD Work Phone: Start: 08-03-2024 End: 08-03-2024 Glucose quantitative blood xcpt reagent strip Beverley Tijerina DO Work Phone: Start: 08-03-2024 End: 08-03-2024 Glucose quantitative blood xcpt reagent strip Maureen Felder MD Work Phone: Start: 08-03-2024 End: 08-03-2024 Chloride kam Sinha MD Work Phone: Start: 08-03-2024 End: 08-03-2024 Chloride kam Sinha MD Work Phone: Start: 08-03-2024 End: 08-03-2024 Glucose quantitative blood xcpt reagent strip Faby Dinero MD Work Phone: Start: 08-03-2024 Ct abdomen & pelvis w/contrast material Jhon Dean ULTRASOUND APPLICATIONS SPECIALIST-DEALERSHIP MANAGER Work Phone: Start: 08-03-2024 End: 08-03-2024 Basic metabolic panel calcium total Jhon Dean ULTRASOUND APPLICATIONS SPECIALIST-DEALERSHIP MANAGER Work Phone: Start: 08-03-2024 Gases blood ph direct concepción xcpt pulse oximitry Jhon Dean ULTRASOUND APPLICATIONS SPECIALIST-DEALERSHIP MANAGER Work Phone: Start: 08-03-2024 End: 08-03-2024 Calcium ionized Lakesha Mendoza ULTRASOUND APPLICATIONS SPECIALIST-DEALERSHIP MANAGER Work Phone: Start: 08-03-2024 C-reactive protein Lakesha Mendoza ULTRASOUND APPLICATIONS SPECIALIST-DEALERSHIP MANAGER Work Phone: Start: 08-03-2024 Comprehensive metabolic panel Lakesha Mendoza ULTRASOUND APPLICATIONS SPECIALIST-DEALERSHIP MANAGER Work Phone: Start: 08-03-2024 Dup-scan artl celio abdl/pel/scrot&/rpr orgn com Lakesah Mendoza ULTRASOUND APPLICATIONS SPECIALIST-DEALERSHIP MANAGER Work Phone: Start: 08-03-2024 Ct abdomen & pelvis w/o contrast material Lakesha Mendoza ULTRASOUND APPLICATIONS SPECIALIST-DEALERSHIP MANAGER Work Phone: Start: 08-03-2024 EXTRA URINE VARMA TUBE Lakesha Mendoza ULTRASOUND APPLICATIONS SPECIALIST-DEALERSHIP MANAGER Work Phone: Start: 08-03-2024 Urinalysis complete W Reflex Culture panel - Urine Lakesha Mendoza ULTRASOUND APPLICATIONS SPECIALIST-DEALERSHIP MANAGER Work Phone: Start: 08-03-2024 Urnls dip stick/tablet reagent auto microscopy Lakesha Mendoza ULTRASOUND APPLICATIONS SPECIALIST-DEALERSHIP MANAGER Work Phone: Start: 10-10-2023 Hemoglobin glycosylated a1c Natalie murphy MD Work Phone: Start: 09-04-2020 Iaadiadoo streptococcus group a Cynthia Arzola Work Phone: Start: 03-23-2020 Radiologic exam chest 2 views SATYA HELFMAN Start: 03-23-2020 Assay of troponin quantitative SATYA HELFMAN Start: 03-23-2020 Basic metabolic panel calcium total SATYA HELFMAN Start: 03-23-2020 Blood count complete auto&auto difrntl wbc SATYA WEST Start: 03-23-2020 Fibrin dgradj products d-dimer quantitative SATYA WEST Start: 03-23-2020 Ecg routine ecg w/least 12 lds w/i&r SATYA WEST Start: 03-23-2020 Radiologic exam chest 2 views Satya West Start: 03-23-2020 Assay of troponin quantitative Satya West Start: 03-23-2020 Basic metabolic panel calcium total Satya West Start: 03-23-2020 Blood count complete auto&auto difrntl wbc Satya West Start: 03-23-2020 Fibrin dgradj products d-dimer quantitative Satya West Start: 04-08-2019 Radex foot complete minimum 3 views Eliud Brenda Rubio Work Phone: Start: 01-18-2019 Ct maxillofacial w/o contrast material AMI MEJIA Start: 01-18-2019 Radex facial bones complete minimum 3 views AMI MEJIA Plan of Treatment Date Care Activity Detail Author Start: 2049 Shingles Vaccine (1 of 2) Shingles Vaccine (1 of 2) [place], [place] Start: 2049 Zoster Vaccines (1 o f 2) Zoster Vaccines (1 of 2) [facility] Start: 04-08-2029 DTaP,Tdap and Td Vaccines (10 - Td or Tdap) DTaP,Tdap and Td Vaccines (10 - Td or Tdap) [facility] Start: 04-08-2029 DTaP/Tdap/Td vaccine (2 - Td) DTaP/Tdap/Td vaccine (2 - Td) [place] Start: 04-08-2029 DTaP/Tdap/Td vaccine (3 - Td or Tdap) DTaP/Tdap/Td vaccine (3 - Td or Tdap) [facility] Start: 08-27-2025 GFR test (Diabetes, CKD 3-4, OR last GFR 15-59) GFR test (Diabetes, CKD 3-4, OR last GFR 15-59) [facility] Start: 10-09-2024 Adult BMI Screening [facility] Start: 10-09-2024 Tobacco Screening Tobacco Screening [facility] Start: 09-25-2024 Adult BMI Screening Adult BMI Screen ing [facility] Start: 09-18-2024 End: 10-23-2024 CT Pelvis WO contrast CT PELVIS WO CONTRAST Additional Contrast? None Imaging Routine Psoas abscess (HCC) Staphylococcus aureus infection Expected: 09/18/2024, Expires: 10/23/2024 [facility] Comment on above: Expected: 09/18/2024 , Expires: 10/23/2024 Start: 09-12-2024 Tobacco Screening Tobacco Screening [facility] Start: 08-25-2024 End: 08-25-2025 CBC W Auto Differential panel - Blood CBC with Auto Differential Lab Routine Psoas abscess (HCC) Staphylococcus aureus infection Expected: 08/25/2024, Expires: 08/25/2025 [facility] Comment on above: Expected: 08/25/2024 , Expires: 08/25/2025 Start: 08-25-2024 End: 08-25-2025 Creatinine [Mass/volume] in Serum or Plasma Creatinine Lab Routine Psoas abscess (HCC) Staphylococcus aureus infection Expected: 08/25/2024, Expires: 08/25/2025 [facility] Comment on above: Expected: 08/25/2024 , Expires: 08/25/2025 Start: 08-25-2024 End: 08-25-2025 Hepatic function 2000 panel - Serum or Plasma Hepatic Function Panel Lab Routine Psoas abscess (HCC) Staphylococcus aureus infection Expected: 08/25/2024, Expires: 08/25/2025 [facility] Comment on above: Expected: 08/25/2024 , Expires: 08/25/2025 Start: 08-20-2024 [facility] Start: 08-15-2024 [facility] Start: 08-15-2024 [facility] Start: 08-15-2024 Referral to infectio us diseases physician [facility] Start: 08-14-2024 Consultation [facility] Start: 08-14-2024 Hospital admission [facility] Start: 08-14-2024 Drainage of Right Hi p Muscle with Drainage Device, Percutaneous Approach Drainage of Right Hip Muscle with Drainage Device, Percutaneous Approach [facility] Start: 08-08-2024 [facility] Start: 07-31-2024 Patient referral [facility] Work Phone: Start: 03-14-2024 End: 03-14-2024 Patient encounter procedure 03/14/2024 4:00 PM EDT Office Visit [facility] [address] [place] [phone] Natalie Cai MD [address] [place] [address] [facility] Start: 03-09-2024 COVID-19 Vaccine ( season) COVID-19 Vaccine ( season) [facility] Start: 03-09-2024 Influenza vaccination [facility] Start: 02-07-2024 Influenza vaccination Flu vaccine (# 1) [facility] Start: 01-08-2024 End: 01-08-2024 Patient encounter procedure 01/08/2024 3:00 PM EDT Office Visit [facility] [address] [place] [id number] Iman Barron, ULTRASOUND APPLICATIONS SPECIALIST-DEALERSHIP MANAGER [address] [place] [address] [facility] Start: 10-25-2023 End: 10-25-2023 Patient encounter procedure 10/25/2023 2:30 PM EDT Office Visit [facility] [address] [facility] [address] [place] [address] Maureen Polanco MD [address] [facility] [address] [place] [address] [facility] Start: 10-10-2023 End: 10-10-2023 Patient encounter procedure 10/10/2023 12:00 PM EDT [facility] [address] [facility] [address] [place] [phone] Natalie Cai MD [address] [place] [address] [facility] Start: 03-09-2023 Influenza vaccination Influenza Vacc ine [facility] Start: 2021 DTaP/Tdap/Td Vaccine s (1 - Tdap) DTaP/Tdap/Td Vaccines (1 - Tdap) [facility] Start: 03-09-2020 Influenza vaccination Flu vaccine (# 1) [place] Start: 03-09-2019 Influenza vaccination Flu vaccine (# 1) [place] Start: 2018 Hepatitis B vaccine (1 of 3 - 19+ 3-dose series) Hepatitis B vaccine (1 of 3 - 19+ 3-dose series) [facility] Start: 2018 Hepatitis B Vaccines (1 of 3 - 19+ 3-dose series) Hepatitis B Vaccines (1 of 3 - 19+ 3-dose series) [facility] Start: 2018 Pneumococcal 0-49 ye ars Vaccine (1 of 2 - PCV) Pneumococcal 0-49 years Vaccine (1 of 2 - PCV) [facility] Start: 2018 Pneumococcal Vaccine : Pediatrics and At-Risk Adult Patients (1 of 2 - PCV) Pneumococcal Vaccine: Pediatrics and At-Risk Adult Patients (1 of 2 - PCV) [facility] Start: 2017 Diabetic foot examination Diabetic Foot Exam [facility] Start: 2017 Glaucoma screening Diabetic retinal exam [facility] Start: 2017 Hepatitis C screening U [facility] Start: 2017 Urine screening for protein Diabetic Alb to Cr ratio (uACR) test [facility] Start: 06-16-2017 Hepatitis A vaccine (2 of 2 - 2-dose series) Hepatitis A vaccine (2 of 2 - 2-dose series) [facility] Start: 01-12-2017 Polio vaccine (2 of 3 - 4-dose series) Polio vaccine (2 of 3 - 4-dose series) [facility] Start: 2014 HIV screen HIV screen [place], [place] Start: 2014 HIV screening HIV screen Larry Schaefer katina [facility] Start: 2014 HPV vaccine (1 - Mal e 3-dose series) HPV vaccine (1 - Male 3-dose series) [facility] Start: 2014 HPV Vaccines (1 - Ma le 3-dose series) HPV Vaccines (1 - Male 3-dose series) [facility] Start: 2012 Varicella vaccination Varicell a Vaccines (1 of 2 - 13+ 2-dose series) [facility] Start: 2012 Varicella Vaccine (1 of 2 - 13+ 2-dose series) Varicella Vaccine (1 of 2 - 13+ 2-dose series) [place] Start: 2011 Depression Screen Depression Screen [facility] Start: 2011 Depression Screening Depression Scre [facility] Start: 2010 HPV vaccine (1 - Mal e 2-dose series) HPV vaccine (1 - Male 2-dose series) [place] Start: 2009 Diabetic foot examination Diabetic foot exam [facility] Start: 2009 Glaucoma screening Diabetes: R etinopathy Screening [facility] Start: 2009 Hemoglobin A1c measurement A1C test (Diabetic or Prediabetic) [facility] Start: 2009 Lipid panel Lipids [facility] Start: 2005 Pneumococcal 0-64 ye ars Vaccine (1 of 1 - PPSV23) Pneumococcal 0-64 years Vaccine (1 of 1 - PPSV23) [place] Start: 2000 MMR Vaccines (1 of 1 - Standard series) MMR Vaccines (1 of 1 - Standard series) [facility] Start: 2000 Varicella vaccine (1 of 2 - 2-dose childhood series) Varicella vaccine (1 of 2 - 2-dose childhood series) [place] Start: 1999 Cyanocobalamin vitam in b-12 Vitamin B-12 [facility] Start: 1999 Diabetes: Celiac Disease Screening Diabetes: Celiac Disease Screening [facility] Start: 1999 Glaucoma screening Diabetic [facility] Start: 1999 Hemoglobin A1c measurement Diabetes: Hemoglobin A1C [facility] Start: 1999 Hepatitis C screening Hepatitis C [facility] Work Phone: Start: 1999 [facility] Start: 1999 Lipid panel Lipid Panel [facility] Start: 1999 Thyroid stimulating hormone measurement TSH Level [facility] Start: 1999 Tobacco Counseling Tobacco Counselin g [facility] Start: 1999 Urine screening for protein [facility] Start: 1999 Yearly Adult Physical Yearly Adult P hysical [facility] End: 08-06-2024 Basic metabolic 2000 panel - Serum or Plasma Basic Metabolic Panel Lab Routine Morning draw (Lab) for 3 Days starting 08/04/2024 until 08/06/2024, 2 completed [facility] Work Phone: Comment on above: Morning draw (Lab) f or 3 Days starting 08/04/2024 until 08/06/2024, 2 completed End: 08-06-2024 CBC W Auto Differential panel - Blood CBC and Auto Differential Lab Routine Morning draw (Lab) for 3 Occurrences starting 08/04/2024 until 08/06/2024, 2 completed [facility] Work Phone: Comment on above: Morning draw (Lab) f or 3 Occurrences starting 08/04/2024 until 08/06/2024, 2 completed Comprehensive metabo lic 2000 panel - Serum or Plasma [facility] End: 10-09-2024 Comprehensive metabolic 2000 panel - Serum or Plasma Comprehensive metabolic panel Lab Routine Type I diabetes mellitus with hyperosmolarity, uncontrolled (CMS-HCC) 1 Occurrences starting 10/10/2023 until 10/09/2024 [facility] Comment on above: 1 Occurrences starti ng 10/10/2023 until 10/09/2024 Electrocardiogram, 12-lead PRN ACS symptoms Electrocardiogram, 12-lead PRN ACS symptoms ECG Routine As needed until discontinued starting 08/03/2024 [facility] Work Phone: Comment on above: As needed until disc ontinued starting 08/03/2024 End: 08-06-2024 Glucose [Mass/volume] in Serum or Plasma POCT Glucose Point of Care Testing - Docked Device Routine 3 times daily before meals (Lab) for 3 Days starting 08/03/2024 until 08/06/2024, 7 completed [facility] Work Phone: Comment on above: 3 times daily before meals (Lab) for 3 Days starting 08/03/2024 until 08/06/2024, 7 completed Glucose [Mass/volume ] in Serum or Plasma POCT Glucose Point of Care Testing - Docked Device Routine As needed (Lab) until discontinued starting 08/03/2024 [facility] Work Phone: Comment on above: As needed (Lab) unti l discontinued starting 08/03/2024 Glucose [Mass/volume ] in Serum or Plasma [facility] Comment on above: 4X Daily (AC & HS) u ntil discontinued starting 08/21/2024 As Needed until disc ontinued starting 08/21/2024 Insulin C-peptide measurement [facility] Intermittent pulse oximetry Pulse Oximetry Spot Check Respiratory Care Routine As Needed until discontinued starting 08/22/2024 [facility] [employer] Work Phone: Comment on above: As Needed until disc ontinued starting 08/22/2024 End: 10-09-2024 Lipid 1996 panel - Serum or Plasma Lipid profile Lab Routine Type I diabetes mellitus with hyperosmolarity, uncontrolled ([facility]) 1 Occurrences starting 10/10/2023 until 10/09/2024 [facility] Work Phone: Comment on above: 1 Occurrences starti ng 10/10/2023 until 10/09/2024 End: 10-09-2024 Microalbumin - Albumin: Creatinine Urine Ratio Microalbumin - Albumin: Creatinine Urine Ratio Lab Routine Type I diabetes mellitus with hyperosmolarity, uncontrolled ([facility]) 1 Occurrences starting 10/10/2023 until 10/09/2024 [facility] Comment on above: 1 Occurrences starti ng 10/10/2023 until 10/09/2024 Patient Education [facility] Work Phone: Patient referral [facility] Work Phone: End: 10-09-2024 Thyrotropin [Units/volume] in Serum or Plasma TSH Lab Routine Type I diabetes mellitus with hyperosmolarity, uncontrolled (CMS-HCC) 1 Occurrences starting 10/10/2023 until 10/09/2024 [facility] Comment on above: 1 Occurrences starti ng 10/10/2023 until 10/09/2024 XR FOOT RIGHT (MIN 3 VIEWS) XR FOOT RIGHT (MIN 3 VIEWS) Imaging STAT 04/08/2019 7:34 AM EDT [facility] Immunizations Immunization Date Immunization Notes Care Provider Fa cility 04-08-2019 tetanus toxoid, redu harjeet diphtheria toxoid, and acellular pertussis vaccine, adsorbed [facility] 04-08-2019 diphtheria, tetanus toxoids and acellular pertussis vaccine, unspecified formulation Eliud [place], [place] Payers Date Payer Category Payer Unknown [id number] 2024 Self-pay 2022 [employer] [facility] [id number] 2022 Unknown [id number] [id number]. [id number] 2022 Unknown [id number] 2019 Unknown [id number]. [id number] 2015 Unknown [id number] 2015 Unknown [id number] [id number]. [id number] 1999 Unknown [id number] 2.16.840.1.474121.3.579.2. 176 1999 Unknown [id number] 2.16.840.1.848158.3.579.2. 177 1999 Unknown [id number] 2.16.840.1.606622.3.579.2. 1286 1999 Unknown [id number] 2.16.840.1.940186.3.579.2. 1286 1999 Unknown [id number] 2.16.840.1.135532.3.579.2. 1286 1999 Unknown [id number] 2.16.840.1.894173.3.579.2. 1286 1999 Unknown [id number] 2.16.840.1.323152.3.579.2. 1286 1999 Unknown [id number] 2.16.840.1.021546.3.579.2. 1243 1999 Unknown [id number] 2.16.840.1.582107.3.579.2. 1286 1999 Unknown [id number] 2.16.840.1.173852.3.579.2. 1286 1999 Unknown [id number] 2.16.840.1.586523.3.579.2. 1286 1999 Unknown [id number] 2.16.840.1.160978.3.579.2. 1286 1999 Unknown [id number] 2.16.840.1.897565.3.579.2. 1286 1999 Unknown [id number] 2.16.840.1.651871.3.579.2. 1286 1999 Unknown [id number] 2.16.840.1.674690.3.579.2. 1286 1999 Unknown [id number] 2.16.840.1.835278.3.579.2. 175 1999 Unknown [id number] 2.16.840.1.017480.3.579.2. 175 Unknown [id number] 2.16.840.1.410704.3.579.2. 531 Unknown [id number] 2.16.840.1.739500.3.579.2. 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) [place] Start: 03-23-2020 End: 10-10-2023 Tobacco use and exposure Never used [place] Start: 03-23-2020 End: 08-21-2024 Alcohol intake Current drinker of alcohol (finding) [place] Start: 03-23-2020 Alcohol Comment socially [place] Start: 03-16-2024 End: 08-03-2024 Exposure to SARS-CoV-2 (event) Not sure [place] Start: 03-26-2024 Tobacco smoking stat [facility] Tobacco smoking consumption unknown [facility] Work Phone: Start: 07-31-2024 End: 08-15-2024 Tobacco smoking status NHIS Smoker (finding) [facility] Start: 08-01-2024 End: 12-10-2024 Sex Male (finding) [facility] Start: 1999 Sex Assigned At Male F [facility] Start: 08-04-2024 Tobacco smoking stat NHIS Never smoked tobacco [facility] Start: 08-04-2024 Alcoholic beverage intake Lifetime non-drinker (finding) [facility] Work Phone: Has the [employer], [employer], or water [employer] threatened to shut off services in your home in past 12Mo No [facility] How often to you hav e a drink containing alcohol? Never [facility] How many standard drinks containing alcohol do you have on a typical day? Patient does not drink [facility] How hard is it for y ou to pay for the very basics like food, housing, medical care, and heating Not very hard [facility] Work Phone: (I/We) worried bernice er (my/our) food would run out before (I/we) got money to buy more. Never true [facility] Work Phone: Start: 09-01-2019 End: 10-10-2023 Tobacco smoking status NHIS Occasional tobacco smoker [facility] Do you belong to any clubs or organizations such as sikhism groups, unions, fraternal or athletic groups, or school groups? Yes [facility] Are you now , , , , never or living with a partner? Never [facility] How often to you hav e a drink containing alcohol? 2-4 times a month [facility] How many standard drinks containing alcohol do you have on a typical day? 1 or 2 [facility] Start: 10-10-2023 Alcohol Comment 1 every 3 days [facility] Start: 08-15-2024 SDOH Follow up SDOH Follow up [facility] Work Phone: Start: 09-13-2023 Alcohol intake Ex-drinker (finding) [facility] NEGATED: Highlighted rowStart: ELIANA History of tobacco use Passive smoker [facility] Work Phone: Medical Equipment Procedure Code Equipment Code Equipment Origin al Text Equipment Identifier Dates Blood Sugar Diag nostic (True Metrix Glucose Test Strip) strip Start: 07-31-2024 Lancets 33 gauge misc Sta rt: 07-31-2024 Pen Needle, Diab etic (Bd Laina 2nd Gen Pen Needle) 32 gauge x 5/32 needle Start: 07-31-2024 Blood Sugar Diag nostic (True Metrix Glucose Test Strip) strip Start: 07-31-2024 Lancets 33 gauge misc Sta rt: 07-31-2024 Pen Needle, Diab etic (Bd Laina 2nd Gen Pen Needle) 32 gauge x 5/32 needle Start: 07-31-2024 ONE TOUCH VERIO STRIPS. Use prn if sensor fails [id number] Start: 10-10-2023 Use prn if senso r fails [id number] Start: 10-10-2023 Use to check glu cose levels three times daily in case of sensor failure [id number] Start: 10-10-2023 1 each by miscellaneous route 5 (five) times a day. [id number] Start: 10-10-2023 Blood Sugar Diag nostic (True Metrix Glucose Test Strip) strip Start: 07-31-2024 Lancets 33 gauge misc Sta rt: 07-31-2024 Pen Needle, Diab etic (Bd Laina 2nd Gen Pen Needle) 32 gauge x 5/32 needle Start: 07-31-2024 Blood Sugar Diag nostic (True Metrix Glucose Test Strip) strip Start: 07-31-2024 Lancets 33 gauge misc Sta rt: 07-31-2024 Pen Needle, Diab etic (Bd Laina 2nd Gen Pen Needle) 32 gauge x 5/32 needle Start: 07-31-2024 Blood Sugar Diag nostic (True Metrix Glucose Test Strip) strip Start: 07-31-2024 Lancets 33 gauge misc Sta rt: 07-31-2024 Pen Needle, Diab etic (Bd Laina 2nd Gen Pen Needle) 32 gauge x 5/32 needle Start: 07-31-2024 Blood Sugar Diag nostic (True Metrix Glucose Test Strip) strip Start: 07-31-2024 Lancets 33 gauge misc Sta rt: 07-31-2024 Pen Needle, Diab etic 32 gauge x 5/32 needle Start: 12-10-2024 Pen Needle, Diab etic (Bd Laina 2nd Gen Pen Needle) 32 gauge x 5/32 needle Start: 07-31-2024 End: 12-10-2024 Blood Sugar Diag nostic (True Metrix Glucose Test Strip) strip Start: 07-31-2024 Lancets 33 gauge misc Sta rt: 07-31-2024 Pen Needle, Diab etic 32 gauge x 5/32 needle Start: 12-10-2024 Pen Needle, Diab etic (Bd Laina 2nd Gen Pen Needle) 32 gauge x 5/32 needle Start: 07-31-2024 End: 12-10-2024 Blood Sugar Diag nostic (True Metrix Glucose Test Strip) strip Start: 07-31-2024 Lancets 33 gauge misc Sta rt: 07-31-2024 Pen Needle, Diab etic 32 gauge x 5/32 needle Start: 12-10-2024 Pen Needle, Diab etic (Bd Laina 2nd Gen Pen Needle) 32 gauge x 5/32 needle Start: 07-31-2024 End: 12-10-2024 Blood Sugar Diag nostic (True Metrix Glucose Test Strip) strip Start: 07-31-2024 Lancets 33 gauge misc Sta rt: 07-31-2024 Pen Needle, Diab etic 32 gauge x 5/32 needle Start: 12-10-2024 Pen Needle, Diab etic (Bd Laina 2nd Gen Pen Needle) 32 gauge x 5/32 needle Start: 07-31-2024 End: 12-10-2024 Goals Date Patient Goal Desired Activity /State Functional Status Date Assessment Result Facility 08-21-2024 Functional status Patient at Baseline [facility] Work Phone: Mental Status Date Assessment Result Facility 08-21-2024 Cognitive function Cognitive Sta tus Patient at Baseline [facility] Work Phone: Clinical Notes 09-26-2023 to 01-20-2025 Note Date & Type Note Facility 01-20-2025 Evaluation note Diagnosis Onset Date Resolution Type 1 diabetes mellitus acute January 20, 2025 7:52am Insulin pump titration acute Ju ly 2024 2:53pm Type 1 diabetes mellitus acute February 03, 2025 2:53pm Plantar fasciitis acute February 16, 2025 3:57pm BMI 24.0-24.9, adult acute Sept emb2024 4:30pm Dietary counseling and surveillance acute March 18, 2025 4:30pm Insulin long-term use acute Sep tember 2024 4:30pm Insulin pump titration acute Se ptember 2024 4:30pm Type 1 diabetes mellitus acute March 18, 2025 4:30pm [facility] Work Phone: 1(234) 812-526006-04-2025 Evaluation note* Diagnosis Onset Date Resolution Status Admit Date BMI 24.0-24.9, adult acute December 10, 2024 2:48pm Dietary counseling and surveillance acute December 10, 2024 2 :48pm Insulin long-term use acute Dec 2:48pm Type 1 diabetes mellitus acute December 10, 2024 2:48pm [facility] Work Phone: 1(169) 342-805806-04-2025 Evaluation note* Diagnosis Onset Date Resolution Status Admit Date BMI 24.0-24.9, adult acute December 10, 2024 2:48pm Dietary counseling and surveillance acute December 10, 2024 2 :48pm Insulin long-term use acute Dec 2:48pm Type 1 diabetes mellitus acute December 10, 2024 2:48pm Type 1 diabetes mellitus acute January 20, 2025 7:52am [facility] Work Phone: 1(220) 517-852606-04-2025 Evaluation note* Diagnosis Onset Date Resolution Status Admit Date BMI 24.0-24.9, adult acute December 10, 2024 2:48pm Dietary counseling and surveillance acute December 10, 2024 2 :48pm Insulin long-term use acute Dec 2:48pm Type 1 diabetes mellitus acute December 10, 2024 2:48pm Type 1 diabetes mellitus acute January 20, 2025 7:52am Insulin pump titration acute Ju ly 2024 2:53pm Type 1 diabetes mellitus acute February 03, 2025 2:53pm Plantar fasciitis acute February 16, 2025 3:57pm [facility] Work Phone: 1(354) 199-911802-19-2025 Hospital Discharge instructions* Discharge Instructions* Travon Henry MD - 08/27/2024 5:16 PM EST Pls flush 2 per day 10 cc saline in the R groin GEORGES * Discharge Instr - Activity* Phu Roberts RN - 08/27/2024 6:26 PM EST 08/27/2024 RE: Isaias Estrella [address] [place] [address] To Whom It May Concern, Due to medical reasons, Isaias Estrella was under the care of at [facility] from 08/21/24 until 08/27/24. For medical reasons Isaias may return to duty with no restrictions 09/04/24. If you ave any further questions we can be reached at [phone]. Sincerely, Phu Roberts RN * Discharge Instr - JOSE* Phu Roberts RN - 08/25/2024 3:16 PM EST Continuity of Care Form Patient Name: Isaias Estrella : 2000 Admit date: 08/21/2024 Discharge date: 08/27/23 Code Status Order: Full Code Advance Directives: Advance Care Flowsheet Documentation Admitting Physician: No admitting provider for patient encounter. PCP: Senia Fernandez PA-C Discharging Nurse: [facility] Unit/Room#: 0241/0241-01 Discharging Unit Phone Number: [phone] Emergency Contact: Extended Emergency Contact Information Primary Emergency Contact: GaryNikki garcia Cecile Address: [address] [place] [address] Relation: Parent Secondary Emergency Contact: Getachew Davila Address: [address] [place], [place] [id number] Relation: Parent Past Surgical History: No past surgical history on file. 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 Thrombocytosis D75.839 Isolation/Infection: Isolation No Isolation Patient Infection Status None to display Nurse Assessment: Last Vital Signs: BP (!) 124/53 Pulse 75 Temp 98.4 F (36.9 C) (Oral) Resp 17 Ht 1.829 m (6') Wt 74.6 kg (164 lb 7.4 oz) SpO2 95% BMI 22.31 kg/m Last documented pain score (0-10 scale): Pain Level: 8 Last Weight: Wt Readings from Last 1 Encounters: 08/21/24 74.6 kg (164 lb 7.4 oz) Mental Status: oriented and alert IV Access: - PICC - site R Cephalic, insertion date: 08/25/24 Nursing Mobility/ADLs: Walking Independent Transfer Independent Bathing Independent Dressing Independent Toileting Independent Feeding Independent Administrative Library Assistant Independent Med Delivery whole Wound Care Documentation and Therapy: Elimination: Continence: Bowel: Yes Bladder: Yes Urinary Catheter: None Colostomy/Ileostomy/Ileal Conduit: No Date of Last BM: 08/27/24 Intake/Output Summary (Last 24 hours) at 08/25/2024 1516 Last data filed at 08/25/2024 0616 Gross per 24 hour Intake 10 ml Output 60 ml Net -50 ml I/O last 3 completed shifts: In: 130 [P.O.:120; Other:10] Out: 130 [Drains:130] Safety Concerns: None Impairments/Disabilities: None Nutrition Therapy: Current Nutrition Therapy: - Oral Diet: General Routes of Feeding: Oral Liquids: Thin Liquids Daily Fluid Restriction: no Last Modified Barium Swallow with Video (Video Swallowing Test): not done Treatments at the Time of Hospital Discharge: Respiratory Treatments: Oxygen Therapy: is not on home oxygen therapy. Ventilator: - No ventilator support Rehab Therapies: Physical Therapy and Occupational Therapy Weight Bearing Status/Restrictions: No weight bearing restrictions Other Medical Equipment (for information only, NOT a DME order): Other Treatments: Patient's personal belongings (please select all that are sent with patient): Glasses RN SIGNATURE: CASE MANAGEMENT/SOCIAL WORK SECTION Inpatient Status Date: 08-21-2024 Readmission Risk Assessment Score: [facility] RISK OF UNPLANNED READMISSION 2.0 6.5 Total Score Discharging to Facility/ Agency Name: [facility] [phone] [facility] (IV infusion) [phone] Dialysis Facility (if applicable) Name: Address: Dialysis Schedule: Phone: Fax: General Assembler/Emergency Room Nurse signature: PHYSICIAN SECTION Prognosis: Fair Condition at Discharge: Stable Rehab Potential (if transferring to Rehab): Good Recommended Labs or Other Treatments After Discharge: follow up PCP follow up infectious diseases continue rocephin till 09/22/24 remove PICC when antibiotics are completed. Physician Certification: I certify the above information and transfer of Isaias Estrella is necessary for the continuing treatment of the diagnosis listed and that he requires Home Care for less 30 days. Update Admission H&P: No change in H&P PHYSICIAN SIGNATURE: documented in this encounterBon [facility] Hospital course Narrative* Rex Yoon MD - 08/27/2024 10:39 AM EST Images from the original note were not included. [facility] Office: [phone] Lito Walls DO, Mook James DO, Ej Cunningham DO, Aniceto Herrera DO, Joss Fox MD, Antonella East MD, Elke Vasquez MD, Josselin Topete MD, Cleve Paul MD, Landen Barrientos MD, Rex Yoon MD, Rosalina Morales DO, Efraín Chavez MD, Gama Rico MD, Jorge Walls DO, Magaly Olivia MD, Toño Mcconnell DO, Maggy Vasquez MD, Rashmi Del Angel MD, Enriqueta Vasquez MD, Tierra Banuelos MD, Veto Walker MD, Jose David Bravo MD, Caridad Samuels MD, Paz Peterson MD, Tong Champion MD, Garcia Dyer MD, Rob Edwards DO, Kalyan Freeman MD, Rosalina Solis MD, Larry Solis MD, Rosie Quevedo, DEALERSHIP MANAGER, Rachel King, DEALERSHIP MANAGER, Rob Martinez, DEALERSHIP MANAGER, Cristy Galindo, DNP, Kika Turner, DEALERSHIP MANAGER, Alyson Thomas, DEALERSHIP MANAGER, Xenia Cates, DEALERSHIP MANAGER, Rachna Yap, DEALERSHIP MANAGER, Iman Ortiz PA-C, Josiane Vail, DEALERSHIP MANAGER, Heydi Whaley, DEALERSHIP MANAGER, Adrianna Weinstein, DEALERSHIP MANAGER, Shannon Cantu, DEALERSHIP MANAGER, Morena Randle, DEALERSHIP MANAGER,Jovita Laird, [facility], Megha Wesley DEALERSHIP MANAGER, Dina Au, DEALERSHIP MANAGER, Annie Lewis, DEALERSHIP MANAGER [facility] IN-PATIENT SERVICE [facility] Discharge Summary Patient ID: Isaias Estrella : 2000 ACCOUNT: [id number] Patient's PCP: Senia Fernandez PA-C Admit Date: 08/21/2024 Discharge Date: 08/27/2024 Length of Stay: 6 Code Status: Full Code Admitting Physician: No admitting provider for patient encounter. Discharge Physician: Rex Yoon MD Active Discharge Diagnoses: Hospital Problem Lists: Principal Problem: Iliacus abscess (HCC) Active Problems: Uncontrolled type 1 diabetes mellitus with hyperglycemia (HCC) Ambulatory dysfunction Tobacco dependence Pulmonary nodules Hyponatremia Anemia, normocytic normochromic MSSA (methicillin susceptible Staphylococcus aureus) infection Staphylococcus aureus infection Psoas abscess (HCC) Thrombocytosis Resolved Problems: * No resolved hospital problems. * Admission Condition: stable Discharged Condition: stable Hospital Stay: Hospital Course: Isaias Estrella is a 24 y.o. male who was admitted for the management of Iliopsoas abscess (HCC) , presented to ER with No chief complaint on file. 24-year-old male past medical history of diabetes type 1, smoker who presented to outlying facilitywith abdominal pain difficulty ambulating found to have pulmonary nodule and fluid collection in the right iliac muscle. Patient was transferred to [facility] for further care.Patient evaluated by general surgery no acute intervention recommended. Patient had drain placement with interventional radiology 08/22/2024. Patient found to have MSSA infection. Currently on ceftriaxone 2 g daily. Significant therapeutic interventions: see above Significant Diagnostic Studies: Labs / Micro: CBC: Lab Results Component Value Date/Time WBC 3.9 08/27/2024 07:42 AM RBC 3.39 08/27/2024 07:42 AM HGB 10.7 08/27/2024 07:42 AM HCT 31.4 08/27/2024 07:42 AM MCV 92.6 08/27/2024 07:42 AM MCH 31.6 08/27/2024 07:42 AM MCHC 34.1 08/27/2024 07:42 AM RDW 12.3 08/27/2024 07:42 AM PLT 542 08/27/2024 07:42 AM BMP: Lab Results Component Value Date/Time GLUCOSE 153 08/27/2024 07:42 AM NA 145 08/27/2024 07:42 AM K 4.1 08/27/2024 07:42 AM CL 107 08/27/2024 07:42 AM CO2 27 08/27/2024 07:42 AM ANIONGAP 11 08/27/2024 07:42 AM BUN 13 08/27/2024 07:42 AM CREATININE 0.5 08/27/2024 07:42 AM CALCIUM 9.4 08/27/2024 07:42 AM LABGLOM >90 08/27/2024 07:42 AM GFRAA >60 03/23/2020 10:15 AM GFR 03/23/2020 10:15 AM GFR NOT REPORTED 03/23/2020 10:15 AM Radiology: CT PELVIS WO CONTRAST Additional Contrast? None Result Date: 08/26/2024 Persistent but decreasing right iliopsoas and iliacus muscle abscess. Slightly increasing free fluid within the posterior pelvis. IR ABSCESS DRAINAGE PERC Result Date: 08/22/2024 Successful placement of a 10 Greek drainage catheter in a suspected right iliacus abscess, as above. Further imaging assessment and possible up sizing may be required. Consultations: Consults: Final Specialist Recommendations/Findings: IP CONSULT TO GENERAL SURGERY IP CONSULT TO INFECTIOUS DISEASES IP CONSULT TO VASCULAR ACCESS TEAM The patient was seen and examined on day of discharge and this discharge summary is in conjunction with any daily progress note from day of discharge. Discharge plan: Disposition: Home Physician Follow Up: Travon Henry MD [facility], [address] [place] [address] Schedule an appointment as soon as possible for a visit in 1 month(s) Requiring Further Evaluation/Follow Up POST HOSPITALIZATION/Incidental Findings: follow up PCP follow up infectious diseases continue rocephin till 09/22/24 remove PICC when antibiotics are completed. Diet: diabetic diet Activity: As tolerated Instructions to Patient: follow up PCP follow up infectious diseases continue rocephin till 09/22/24remove PICC when antibiotics are completed. Discharge Medications: Medication List START taking these medications cefTRIAXone infusion Commonly known as: ROCEPHIN Infuse 2,000 mg intravenously every 24 hours for 28 days Till 09/22 then stop and get a CT pel;vis for better eval of the R pelvic abscess resolution -this will help decide further AB - otherwise cbc diff creat LFT weekly - no line draws- ty gabapentin 300 MG capsule Commonly known as: NEURONTIN Take 1 capsule by mouth 3 times daily for 30 days. lidocaine 4 % external patch Place 1 patch onto the skin daily Start taking on: August 28, 2024 oxyCODONE 5 MG immediate release tablet Commonly known as: ROXICODONE Take 1 tablet by mouth every 6 hours as needed for Pain for up to 7 days. Max Daily Amount: 20 mg CHANGE how you take these medications cyclobenzaprine 10 MG tablet Commonly known as: FLEXERIL Take 1 tablet by mouth 3 times daily for 10 days What changed: when to take this reasons to take this CONTINUE taking these medications ibuprofen 800 MG tablet Commonly known as: ADVIL;MOTRIN Take 1 tablet by mouth every 8 hours as needed for Pain Magic Mouthwash Commonly known as: Miracle Mouthwash Swish and spit 5 mLs 4 times daily as needed for Irritation 30 milliliters (ml) of nystatin suspension at 100,000 units/ml, or 3 million units of nystatin powder. 60 milligrams hydrocortisone. enough diphenhydramine HCL syrup to bring the total volume up to 240 ml. Where to Get Your Medications These medications were sent to [address] - [phone] - F [phone] [place] [address] cyclobenzaprine 10 MG tablet gabapentin 300 MG capsule lidocaine 4 % external patch oxyCODONE 5 MG immediate release tablet You can get these medications from any pharmacy Bring a paper prescription for each of these medications cefTRIAXone infusion Discharge Procedure Orders CT PELVIS WO CONTRAST Additional Contrast? None Standing Status: Future Standing Exp. Date: 10/23/24 Order Specific Question Answer Comments Additional Contrast? None Reason for exam: look for resolution of the R pelvic abscess - tae measures and compare please - ty CBC with Auto Differential Standing Status: Future Standing Exp. Date: 08/25/25 Creatinine Standing Status: Future Standing Exp. Date: 08/25/25 Hepatic Function Panel Standing Status: Future Standing Exp. Date: 08/25/25 Time Spent on discharge is 33 mins in patient examination, evaluation, counseling as well as medication reconciliation, prescriptions for required medications, discharge plan and follow up. Electronically signed by Rex Yoon MD 08/27/2024 10:39 AM Thank you Senia Marie, PAParminderC for the opportunity to be involved in this patient's care. documented in this encounterBon [facility] History of Present illness Narrative* Rex Yoon MD - 08/27/2024 10:36 AM EST Images from the original note were not included. [facility] Office: [phone] Lito Walls DO, Mook James DO, Ej Cunningham DO, Aniceto Herrera DO, Joss Fox MD, Antonella East MD, Elke Vasquez MD, Josselin Topete MD, Cleve Paul MD, Landen Barrientos MD, Rex Yoon MD, Rosalina Morales DO, Efraín Chavez MD, Gama Rico MD, Jorge Walls DO, Magaly Olivia MD, Toño Mcconnell DO, Maggy Vasquez MD, Rashmi Del Angel MD, Enriqueta Vasquez MD, Tierra Banuelos MD, Veto Walker MD, Jose David Bravo MD, Caridad Samuels MD, Paz Peterson MD, Tong Champion MD, Garcia Dyer MD, Rob Edwards DO, Kalyan rFeeman MD, Rosalina Solis MD, Larry Solis MD, Rosie Quevedo, DEALERSHIP MANAGER, Rachel King, DEALERSHIP MANAGER, Rob Martinez, DEALERSHIP MANAGER, Cristy Galindo, HAN, Kika Turner DEALERSHIP MANAGER, Alyson Thomas, DEALERSHIP MANAGER, Xenia Cates, DEALERSHIP MANAGER, Rachna Yap, DEALERSHIP MANAGER, Iman Ortiz, PA-C, Josiane Vail, DEALERSHIP MANAGER, Heydi Whaley, DEALERSHIP MANAGER, Adrianna Weinstein, DEALERSHIP MANAGER, Shannon Cantu, DEALERSHIP MANAGER, Morena Randle, DEALERSHIP MANAGER,Jovita Laird, ANIMAL NUTRITIONIST, Megha Wesley, DEALERSHIP MANAGER, Dina Au, DEALERSHIP MANAGER, Annie Lewis, DEALERSHIP MANAGER [facility] IN-PATIENT SERVICE [facility] Progress Note 08/27/2024 10:36 AM Name: Isaias Estrella Acct: [id number] Room: 0241/0241-01 Day: 6 Admit Date: 08/21/2024 7:25 PM PCP: Senia Fernandez PA-C Code Status: Full Code Subjective: C/C: No chief complaint on file. Interval History Status: not changed. Patient seen examined bedside. Abdominal pain improved. Still having serosanguinous output. Brief History: 24-year-old male past medical history of diabetes type 1, smoker who presented to outlying facilitywith abdominal pain difficulty ambulating found to have pulmonary nodule and fluid collection in the right iliac muscle. Patient was transferred to [facility] for further care.Patient evaluated by general surgery no acute intervention recommended. Patient had drain placement with interventional radiology 08/22/2024. Patient found to have MSSA infection. Currently on ceftriaxone 2 g daily. Review of Systems: Constitutional: negative for chills, fevers, sweats Respiratory: negative for cough, dyspnea on exertion, shortness of breath, wheezing Cardiovascular: negative for chest pain, chest pressure/discomfort, lower extremity edema, palpitations Gastrointestinal: Positive for abdominal pain, positive for nausea neurological: negative for dizziness, headache Medications: Allergies: No Known Allergies Current Meds: Scheduled Meds: gabapentin 300 mg Oral TID cyclobenzaprine 10 mg Oral TID lidocaine 1 patch TransDERmal Daily insulin glargine 34 Units SubCUTAneous Daily And insulin glargine 30 Units SubCUTAneous Nightly cefTRIAXone (ROCEPHIN) IV 2,000 mg IntraVENous Q24H sodium chloride flush 5-40 mL IntraVENous 2 times per day lidocaine 1 % injection 50 mg IntraDERmal Once insulin lispro 0-8 Units SubCUTAneous 4x Daily AC & HS sodium chloride flush 5-40 mL IntraVENous 2 times per day pantoprazole 40 mg Oral QAM AC enoxaparin 40 mg SubCUTAneous Daily Continuous Infusions: sodium chloride sodium chloride dextrose PRN Meds: sodium chloride flush, sodium chloride, oxyCODONE, oxyCODONE, acetaminophen, sodium chloride flush, sodium chloride, glucose, dextrose bolus OR dextrose bolus, glucagon (rDNA), dextrose, acetaminophen Data: Past Medical History: has a past medical history of DM (diabetes mellitus) (HCC), Encopresis(307.7), Fracture of clavicle, and Vision abnormalities. Social History: reports that he has been smoking cigarettes. He has a 6 pack- year smoking history. He has never used smokeless tobacco. He reports current alcohol use. He reports that he does not usedrugs. Family History: Family History Problem Relation Age of Onset Rheum Arthritis Mother Asthma Mother Other Maternal Grandmother Lupus Breast Cancer Other mat great aunt Diabetes Other extended family Vitals: BP (!) 94/59 Pulse 64 Temp 97.9 F (36.6 C) (Oral) Resp 17 Ht 1.829 m (6') Wt 73 kg (160 lb 15 oz) SpO2 98% BMI 21.83 kg/m Temp (24hrs), Av.1 F (36.7 C), Min:97.7 F (36.5 C), Max:98.6 F (37 C) Recent Labs 08/26/24111008/26/24 15508/26/24202808/27/24 0701 POCGLU 306* 222* 393* 148* I/O (24Hr): Intake/Output Summary (Last 24 hours) at 08/27/2024 1036 Last data filed at 08/27/2024 0803 Gross per 24 hour Intake 480 ml Output 960 ml Net -480 ml Labs: Hematology: Recent Labs 08/25/2471908/27/24 0742 WBC 4.0 3.9 RBC 3.02* 3.39* HGB 9.3* 10.7* HCT 27.9* 31.4* MCV 92.4 92.6 MCH 30.8 31.6 MCHC 33.3 34.1 RDW 11.8 12.3 PLT 475* 542* MPV 8.7 8.3 CRP 95.5* 30.7* Chemistry: Recent Labs 08/25/2471908/27/24 0742 NA 139 145 K 4.1 4.1 CL 100 107 CO2 29 27 GLUCOSE 336* 153* BUN 9 13 CREATININE 0.5* 0.5* ANIONGAP 10 11 LABGLOM >90 >90 CALCIUM 8.9 9.4 Recent Labs 08/25/24200908/26/24 0622 08/26/24111008/26/24 15508/26/24202808/27/24 0701 08/27/24 0742 AST -- -- -- -- -- -- 21 ALT -- -- -- -- -- -- 10 ALKPHOS -- -- -- -- -- -- 107 BILITOT -- -- -- -- -- -- 0.2 POCGLU 199* 117* 306* 222* 393* 148* -- ABG:No results found for: POCPH , PHART , PH , POCPCO2 , OFP1RNJ , PCO2 , POCPO2 , PO2ART , PO2 , POCHCO3 , UCF1WZV , HCO3 , NBEA , PBEA , BEART , BE , THGBART , THB , NXK5OQG , CPFK6WWN , U0SCVSGO , O2SAT , FIO2 Lab Results Component Value Date/Time SPECIAL L ARM 1ML 08/21/2024 07:47 PM SPECIAL R ARM 1ML 08/21/2024 07:47 PM Lab Results Component Value Date/Time CULTURE (A) 08/22/2024 05:12 PM STAPHYLOCOCCUS AUREUS MODERATE GROWTH This isolate is methicillin susceptible. CULTURE No anaerobic organisms isolated at 5 days. 08/22/2024 05:12 PM Radiology: CT PELVIS WO CONTRAST Additional Contrast? None Result Date: 08/26/2024 Persistent but decreasing right iliopsoas and iliacus muscle abscess. Slightly increasing free fluid within the posterior pelvis. IR ABSCESS DRAINAGE PERC Result Date: 08/22/2024 Successful placement of a 10 Greek drainage catheter in a suspected right iliacus abscess, as above. Further imaging assessment and possible up sizing may be required. Physical Examination: General appearance: alert, cooperative and no distress Mental Status: oriented to person, place and time and normal affect Lungs: clear to auscultation bilaterally, normal effort Heart: regular rate and rhythm, no murmur Abdomen: soft, slight tenderness to right lower quadrant around GEORGES drain site, some pus noted. GEORGES drain showing serosanguineous output. Extremities: no edema, redness, tenderness in the calves Skin: no gross lesions, rashes, induration Assessment: Hospital Problems Last Modified POA * (Principal) Iliacus abscess (HCC) 08/23/2024 Yes Uncontrolled type 1 diabetes mellitus with hyperglycemia (HCC) 08/22/2024 Yes Ambulatory dysfunction 08/21/2024 Yes Tobacco dependence 08/21/2024 Yes Pulmonary nodules 08/22/2024 Yes Hyponatremia 08/22/2024 Yes Anemia, normocytic normochromic 08/22/2024 Yes MSSA (methicillin susceptible Staphylococcus aureus) infection 08/22/2024 Yes Staphylococcus aureus infection 08/24/2024 Yes Psoas abscess (HCC) 08/24/2024 Yes Thrombocytosis 08/25/2024 Yes Plan: Iliac and sepsis. MSSA. Appreciate infectious disease recommendations. Continue Rocephin Continue to flush GEORGES drain in place Diabetes type 1. Insulin, Lantus Abdominal pain. Neurontin, Flexeril, lidocaine patch PT, OT Discharge planning Rex Yoon MD 08/27/2024 10:36 AM * Rex Yoon MD - 08/27/2024 7:23 AM EST Physician Progress Note PATIENT: ISAIAS ESTRELLA CSN #: [id number] : 2000 ADMIT DATE: 08/21/2024 7:25 PM DISCH DATE: RESPONDING PROVIDER #: Rex YOON MD QUERY TEXT: Patient admitted with R iliac muscle abscess. Noted documentation of sepsis in IM progress note 08/26. In order to support the diagnosis of sepsis, please include additional clinical indicators in your documentation. Or please document if the diagnosis of sepsis has been ruled out after further study The medical record reflects the following: Risk Factors: R iliac muscle abscess Clinical Indicators: per 08/26 IM progress note 08/26 Iliac and sepsis. MSSA , per ID notes R iliac muscle abscess - MSSA in [facility] and here , WBC max 8.7, Tmax 99, HR max 88. blood cx negative-final result, ESR 65, CRP 237, procal 0.18, lactic 1.2 Treatment: IV Ancef - switch to ceftriaxone, IR drain placement/adjustment, ID consult, CT, labs, cultures Options provided: -- Sepsis was ruled out after study -- Sepsis present as evidenced by, Please document evidence. -- Other - I will add my own diagnosis -- Disagree - Not applicable / Not valid -- Disagree - Clinically unable to determine / Unknown -- Refer to Clinical Documentation Reviewer PROVIDER RESPONSE TEXT: Sepsis was ruled out after study. Query created by: Cherri Guevara on 08/27/2024 6:33 AM Electronically signed by: Rex YOON MD 08/27/2024 7:22 AM * Travon Henry MD - 08/26/2024 1:54 PM EST Images from the original note were not included. [facility] - Infectious diseases evaluation admission date 08/21/2024 reason for consultation: MSSA R psoas abscess Impression : Current: R iliac muscle abscess - MSSA in [facility] and here DM type 1 Smoker CRP elevation 95 Other: Discussion / summary of stay / plan of care/ Recommendations: HENCE: Ancef 2 g q 8 - switch to ceftriaxone 2 g daily Drain has been adjusted by IR 08/22 - bloody discharge BS still elevated BC neg 08/21 Anticipate AB till full resolution of the R iliac abscess Plan - DC on ceftriaxone 2 g daily x [address] pelvis at end of the therapy look for resolution of the collection - picc line - reconsiled 08/25 - pus from GEORGES exit site - repeat CT pelvis improved R psoas collection but increased slightly in the post pelvis Ok for DC w above plan Infection Control Recommendations [place] Precautions Contact Isolation Antimicrobial Stewardship Recommendations Simplification of therapy Targeted therapy History of Present Illness: Initial history: Isaias Estrella is a 24 y.o.-year-old male diabetic for the last few years and smoker who developed increasing right groin pain ongoing for few days and decided to go to [facility] where a CT scan on 08/15 demonstrated this a right iliac muscle hematoma versus abscess. Interventional radiology placed a pigtail on 08/15/2024, getting some pus followed by some blood. A repeat CT of the pelvis 08/20 demonstrated an abscess unchanged compared to before and measuring 7 x 6.7 cm. According to the reports he had cultures showing MSSA and he was started on cefazolin. But due to lack of improvement he was sent to [facility] for surgical evaluation No repeat CT scan was done at [facility] since admission Blood cultures 08/21 remain negative IR increased the size of the drain 08/22 due to lack of drainage, it is at this time showing blood His white count is 8.7 His creatinine is 0.5 Infectious disease consulted for antibiotic management, so far our cultures are negative Interval changes 08/26/2024 Patient Vitals for the past 8 hrs: BP Temp Temp src Pulse Resp 08/26/24 1115 -- 98.1 F (36.7 C) Oral -- 16 08/26/24 1100 -- -- -- -- 16 08/26/24 0936 -- -- -- -- 15 08/26/24 0858 -- -- -- 71 -- 08/26/24 0730 111/67 98.2 F (36.8 C) Oral 76 15 08/25 GEORGES w bloody fluid but at the site drainage of pus - Abd soft - Lungs clear - wbc 4 08/26 No fever and no chills - R LQ pain better- draimage bloody and no pus around the drain exit Summary of relevant labs: Labs: Micro: Procedures Cardiology Imaging: I have personally reviewed the past medical history, past surgical history, medications, social history, and family history, and I haveupdated the database accordingly. Allergies: Patient has no known allergies. Review of Systems: Review of Systems Constitutional: Positive for activity change. HENT: Negative for congestion. Eyes: Negative for pain, discharge and redness. Respiratory: Negative for apnea. Cardiovascular: Negative for chest pain. Gastrointestinal: Negative for abdominal distention. Endocrine: Negative for cold intolerance, polydipsia and polyphagia. Genitourinary: Negative for dysuria. Musculoskeletal: Negative for arthralgias. Skin: Negative for color change. Allergic/Immunologic: Negative for immunocompromised state. Neurological: Negative for dizziness. Hematological: Negative for adenopathy. Psychiatric/Behavioral: Negative for agitation. Physical Examination : Physical Exam Constitutional: General: He is not in acute distress. Appearance: Normal appearance. He is not ill-appearing. HENT: Head: Normocephalic and atraumatic. Nose: Nose normal. Mouth/Throat: Mouth: Mucous membranes are moist. Eyes: General: No scleral icterus. Conjunctiva/sclera: Conjunctivae normal. Cardiovascular: Rate and Rhythm: Normal rate and regular rhythm. Heart sounds: No murmur heard. No gallop. Pulmonary: Effort: No respiratory distress. Breath sounds: No wheezing. Abdominal: General: There is no distension. Tenderness: There is no abdominal tenderness. Musculoskeletal: General: No swelling, tenderness, deformity or signs of injury. Cervical back: Neck supple. No rigidity. Skin: Coloration: Skin is not jaundiced or pale. Findings: No bruising or erythema. Neurological: Mental Status: He is alert and oriented to person, place, and time. Cranial Nerves: No cranial nerve deficit. Psychiatric: Mood and Affect: Mood normal. Thought Content: Thought content normal. Past Medical History: Past Medical History: Diagnosis Date DM (diabetes mellitus) (HCC) Encopresis(307.7) Fracture of clavicle Vision abnormalities Past Surgical History: No past surgical history on file. Medications: gabapentin 300 mg Oral TID cyclobenzaprine 10 mg Oral TID lidocaine 1 patch TransDERmal Daily insulin glargine 34 Units SubCUTAneous Daily And insulin glargine 30 Units SubCUTAneous Nightly cefTRIAXone (ROCEPHIN) IV 2,000 mg IntraVENous Q24H sodium chloride flush 5-40 mL IntraVENous 2 times per day lidocaine 1 % injection 50 mg IntraDERmal Once insulin lispro 0-8 Units SubCUTAneous 4x Daily AC & HS sodium chloride flush 5-40 mL IntraVENous 2 times per day pantoprazole 40 mg Oral QAM AC enoxaparin 40 mg SubCUTAneous Daily Social History: Social History Socioeconomic History Marital status: Single Spouse name: Not on file Number of children: Not on file Years of education: Not on file Highest education level: Not on file Occupational History Not on file Tobacco Use Smoking status: Every Day Current packs/day: 1.00 Average packs/day: 1 pack/day for 6.0 years (6.0 ttl pk-yrs) Types: Cigarettes Smokeless tobacco: Never Vaping Use Vaping status: Never Used Substance and Sexual Activity Alcohol use: Yes Comment: socially Drug use: Never Sexual activity: Not on file Other Topics Concern Not on file Social History Narrative Lives with mom,dad, 17 y/o brother in [facility], 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 but doing well otherwise Social Determinants of Health Financial Resource Strain: Low Risk (08/04/2024) Received from [facility] Overall Financial Resource Strain (CARDIA) Difficulty of Paying Living Expenses: Not very hard Food Insecurity: No Food Insecurity (08/04/2024) Received from [facility] Hunger Vital Sign Worried About Running Out of Food in the Last Year: Never true Ran Out of Food in the Last Year: Never true Transportation Needs: No Transportation Needs (08/04/2024) Received from [facility] PRAPARE - Transportation Lack of Transportation (Medical): No Lack of Transportation (Non-Medical): No Physical Activity: Not on file Stress: Not on file Social Connections: Moderately Integrated (09/13/2023) [facility] Social Connection and Isolation Panel [NHANES] Frequency of Communication with Friends and Family: More than three times a week Frequency of Social Gatherings with Friends and Family: More than three times a week Attends Anglican Services: More than 4 times per year Active Member of Clubs or Organizations: Yes Attends Club or Organization Meetings: 1 to 4 times per year Marital Status: Never Intimate Partner Violence: Not At Risk (08/04/2024) Received from [facility] Humiliation, Afraid, Rape, and Kick questionnaire Fear of Current or Ex-Partner: No Emotionally Abused: No Physically Abused: No Sexually Abused: No Housing Stability: Low Risk (08/04/2024) Received from [facility] Housing Stability Vital Sign Unable to Pay for Housing in the Last Year: No Number of Times Moved in the Last Year: 0 Homeless in the Last Year: No Family History: Family History Problem Relation Age of Onset Rheum Arthritis Mother Asthma Mother Other Maternal Grandmother Lupus Breast Cancer Other mat great aunt Diabetes Other extended family Medical Decision Making: I have independently reviewed/ordered the following labs: CBC with Differential: Recent Labs 08/25/24 0720 WBC 4.0 HGB 9.3* HCT 27.9* PLT 475* LYMPHOPCT 38 MONOPCT 12 EOSPCT 5* BMP: Recent Labs 08/25/24 0720 NA 139 K 4.1 CL 100 CO2 29 BUN 9 CREATININE 0.5* Hepatic Function Panel: No results for input(s): LABALBU , BILIDIR , IBILI , BILITOT , ALKPHOS , ALT , AST in the last 72 hours. Invalid input(s): PROT No results for input(s): RPR in the last 72 hours. No results for input(s): HIV in the last 72 hours. No results for input(s): BC in the last 72 hours. Lab Results Component Value Date/Time CREATININE 0.5 08/25/2024 07:20 AM GLUCOSE 336 08/25/2024 07:20 AM Detailed results: Thank you for allowing us to participate in the care of this patient.Please call with questions. This note is created with the assistance of a speech recognition program. While intending to generate adocument that actually reflects the content of the visit, the document can still have some errors including those of syntax and sound a like substitutions which may escape proof reading. It such instances, actual meaningcan be extrapolated by contextual diversion. Travon Henry MD Office: Perfect serve / office [phone] * Car, MD Rex - 08/26/2024 12:06 PM EST Images from the original note were not included. [facility] Office: [phone] Lito Walls DO, Mook James DO, Ej Cunningham DO, Aniceto Herrera DO, Joss Fox MD, Antonella East MD, Elke Vasquez MD, oJsselin Topete MD, Cleve Paul MD, Landen Barrientos MD, Rex Yoon MD, Rosalina Morales DO, Efraín Chavez MD, Gama Rico MD, Jorge Walls DO, Magaly Olivia MD, Toño Mcconnell DO, Maggy Vasquez MD, Rashmi Del Angel MD, Enriqueta Vasquez MD, Tierra Banuelos MD, Veto Walker MD, Jose David Bravo MD, Caridad Samuels MD, Paz Peterson MD, Tong Champion MD, Garcia Dyer MD, Rob Edwards DO, Kalyan Freeman MD, Rosalina Solis MD, Larry Solis MD, Rosie Quevedo, [facility], Rachel King CNP, Rob Martinez CNP, Cristy Galindo DNP, Kika Turner CNP, Alyson Thomas CNP, Xenia Cates, DEALERSHIP MANAGER, Rachna Yap, DEALERSHIP MANAGER, MARILU LimaC, Josiane Vail, DEALERSHIP MANAGER, Heydi Whaley, DEALERSHIP MANAGER, Adrianna Weinstein, DEALERSHIP MANAGER, Shannon Cantu, DEALERSHIP MANAGER, Morena Randle, DEALERSHIP MANAGER,Jovita Laird, NAS, Megha Wesley, DEALERSHIP MANAGER, Dina Au, DEALERSHIP MANAGER, Annie Lewis, DEALERSHIP MANAGER [facility] IN-PATIENT SERVICE [facility] Progress Note 08/26/2024 12:07 PM Name: Isaias Estrella Acct: [id number] Room: [facility] Day: 5 Admit Date: 08/21/2024 7:25 PM PCP: Senia Fernandez PA-C Code Status: Full Code Subjective: C/C: No chief complaint on file. Interval History Status: not changed. Patient seen examined bedside. Still having some abdominal pain. Morphine is sometimes helping. Still having some abdominal spasms. Patient has catheter still in place. Brief History: 24-year-old male past medical history of diabetes type 1, smoker who presented to outlying facilitywith abdominal pain difficulty ambulating found to have pulmonary nodule and fluid collection in the right iliac muscle. Patient was transferred to [facility] for further care.Patient evaluated by general surgery no acute intervention recommended. Patient had drain placement with interventional radiology 08/22/2024. Patient found to have MSSA infection. Currently on ceftriaxone 2 g daily. Review of Systems: Constitutional: negative for chills, fevers, sweats Respiratory: negative for cough, dyspnea on exertion, shortness of breath, wheezing Cardiovascular: negative for chest pain, chest pressure/discomfort, lower extremity edema, palpitations Gastrointestinal: Positive for abdominal pain, positive for nausea neurological: negative for dizziness, headache Medications: Allergies: No Known Allergies Current Meds: Scheduled Meds: gabapentin 300 mg Oral TID cyclobenzaprine 10 mg Oral TID lidocaine 1 patch TransDERmal Daily insulin glargine 34 Units SubCUTAneous Daily And insulin glargine 30 Units SubCUTAneous Nightly cefTRIAXone (ROCEPHIN) IV 2,000 mg IntraVENous Q24H sodium chloride flush 5-40 mL IntraVENous 2 times per day lidocaine 1 % injection 50 mg IntraDERmal Once insulin lispro 0-8 Units SubCUTAneous 4x Daily AC & HS sodium chloride flush 5-40 mL IntraVENous 2 times per day pantoprazole 40 mg Oral QAM AC enoxaparin 40 mg SubCUTAneous Daily Continuous Infusions: sodium chloride sodium chloride dextrose PRN Meds: sodium chloride flush, sodium chloride, oxyCODONE, oxyCODONE, acetaminophen, sodium chloride flush, sodium chloride, glucose, dextrose bolus OR dextrose bolus, glucagon (rDNA), dextrose, acetaminophen Data: Past Medical History: has a past medical history of DM (diabetes mellitus) (HCC), Encopresis(307.7), Fracture of clavicle, and Vision abnormalities. Social History: reports that he has been smoking cigarettes. He has a 6 pack- year smoking history. He has never used smokeless tobacco. He reports current alcohol use. He reports that he does not usedrugs. Family History: Family History Problem Relation Age of Onset Rheum Arthritis Mother Asthma Mother Other Maternal Grandmother Lupus Breast Cancer Other mat great aunt Diabetes Other extended family Vitals: BP 111/67 Pulse 71 Temp 98.1 F (36.7 C) (Oral) Resp 16 Ht 1.829 m (6') Wt 74.6 kg (164 lb7.4 oz) SpO2 98% BMI 22.31 kg/m Temp (24hrs), Av.3 F (36.8 C), Min:97.9 F (36.6 C), Max:98.6 F (37 C) Recent Labs 08/25/24 1625 08/25/24200908/26/24 0622 08/26/24 1111 POCGLU 261* 199* 117* 306* I/O (24Hr): Intake/Output Summary (Last 24 hours) at 08/26/2024 1207 Last data filed at 08/26/2024 0655 Gross per 24 hour Intake -- Output 2009 ml Net -2009 ml Labs: Hematology: Recent Labs 08/25/24 0720 WBC 4.0 RBC 3.02* HGB 9.3* HCT 27.9* MCV 92.4 MCH 30.8 MCHC 33.3 RDW 11.8 PLT 475* MPV 8.7 CRP 95.5* Chemistry: Recent Labs 08/23/24 1450 08/25/24 0720 NA -- 139 K -- 4.1 CL -- 100 CO2 -- 29 GLUCOSE -- 336* BUN -- 9 CREATININE -- 0.5* ANIONGAP -- 10 LABGLOM -- >90 CALCIUM -- 8.9 LACTACIDWB 1.2 -- Recent Labs 08/25/24 0707 08/25/24 1138 08/25/24 1625 08/25/24200908/26/24 0622 08/26/24 1111 POCGLU 324* 102 261* 199* 117* 306* ABG:No results found for: POCPH , PHART , PH , POCPCO2 , MPZ6VTH , PCO2 , POCPO2 , PO2ART , PO2 , POCHCO3 , JZQ6DJZ , HCO3 , NBEA , PBEA , BEART , BE , THGBART , THB , VHS3GYG , ZUNE6BOQ , D8IWFJVM , O2SAT , FIO2 Lab Results Component Value Date/Time SPECIAL L ARM 1ML 08/21/2024 07:47 PM SPECIAL R ARM 1ML 08/21/2024 07:47 PM Lab Results Component Value Date/Time CULTURE (A) 08/22/2024 05:12 PM STAPHYLOCOCCUS AUREUS MODERATE GROWTH This isolate is methicillin susceptible. CULTURE No anaerobic organisms isolated at 4 days. 08/22/2024 05:12 PM Radiology: CT PELVIS WO CONTRAST Additional Contrast? None Result Date: 08/26/2024 Persistent but decreasing right iliopsoas and iliacus muscle abscess. Slightly increasing free fluid within the posterior pelvis. IR ABSCESS DRAINAGE PERC Result Date: 08/22/2024 Successful placement of a 10 Greek drainage catheter in a suspected right iliacus abscess, as above. Further imaging assessment and possible up sizing may be required. Physical Examination: General appearance: alert, cooperative and no distress Mental Status: oriented to person, place and time and normal affect Lungs: clear to auscultation bilaterally, normal effort Heart: regular rate and rhythm, no murmur Abdomen: soft, slight tenderness to right lower quadrant around GEORGES drain site, some pus noted. GEORGES drain showing serosanguineous output. Extremities: no edema, redness, tenderness in the calves Skin: no gross lesions, rashes, induration Assessment: Hospital Problems Last Modified POA * (Principal) Iliacus abscess (HCC) 08/23/2024 Yes Uncontrolled type 1 diabetes mellitus with hyperglycemia (HCC) 08/22/2024 Yes Ambulatory dysfunction 08/21/2024 Yes Tobacco dependence 08/21/2024 Yes Pulmonary nodules 08/22/2024 Yes Hyponatremia 08/22/2024 Yes Anemia, normocytic normochromic 08/22/2024 Yes MSSA (methicillin susceptible Staphylococcus aureus) infection 08/22/2024 Yes Staphylococcus aureus infection 08/24/2024 Yes Psoas abscess (HCC) 08/24/2024 Yes Thrombocytosis 08/25/2024 Yes Plan: Iliac and sepsis. MSSA. Appreciate infectious disease recommendations. Continue Rocephin Continue to flush GEORGES drain Diabetes type 1. Insulin, Lantus Abdominal pain. Neurontin, Flexeril, lidocaine patch PT, OT Discharge planning next 24 hours if no further changes. Rex Yoon MD 08/26/2024 12:07 PM * Candelaria Miranda RN - 08/26/2024 9:06 AM EST RN flushed GEORGES drain with 10ml sterile saline. Pt tolerated well. * Candelaria Miranda RN - 08/25/2024 9:55 AM EST RN flushed GEORGES drain with 10ml sterile saline. Pt tolerated well. * Travon Henry MD - 08/25/2024 9:08 AM EST Images from the original note were not included. [facility] - Infectious diseases evaluation admission date 08/21/2024 reason for consultation: MSSA R psoas abscess Impression : Current: R iliac muscle abscess - MSSA in [facility] and here DM type 1 Smoker CRP elevation 95 Other: Discussion / summary of stay / plan of care/ Recommendations: HENCE: Ancef 2 g q 8 - switch to ceftriaxone 2 g daily Drain has been adjusted by IR 08/22 - bloody discharge BS still elevated BC neg 08/21 Anticipate AB till full resolution of the R iliac abscess Plan - DC on ceftriaxone 2 g daily x [address] pelvis at end of the therapy look for resolution of the collection - picc line - reconsiled 08/25 - pus from GEORGES exit site - repeat CTpelvis and ask IR to re evaluate the Infection Control Recommendations [place] Precautions Contact Isolation Antimicrobial Stewardship Recommendations Simplification of therapy Targeted therapy History of Present Illness: Initial history: Isaias Estrella is a 24 y.o.-year-old male diabetic for the last few years and smoker who developed increasing right groin pain ongoing for few days and decided to go to [facility] where a CT scan on 08/15 demonstrated this a right iliac muscle hematoma versus abscess. Interventional radiology placed a pigtail on 08/15/2024, getting some pus followed by some blood. A repeat CT of the pelvis 08/20 demonstrated an abscess unchanged compared to before and measuring 7 x 6.7 cm. According to the reports he had cultures showing MSSA and he was started on cefazolin. But due to lack of improvement he was sent to [place] for surgical evaluation No repeat CT scan was done at [facility] since admission Blood cultures 08/21 remain negative IR increased the size of the drain 08/22 due to lack of drainage, it is at this time showing blood His white count is 8.7 His creatinine is 0.5 Infectious disease consulted for antibiotic management, so far our cultures are negative Interval changes 08/25/2024 Patient Vitals for the past 8 hrs: BP Temp Temp src Pulse Resp SpO2 08/25/24 0710 106/63 98 F (36.7 C) Oral 67 16 95 % 08/25 GEORGES w bloody fluid but at the site drainage of pus - Abd soft - Lungs clear - wbc 4 Summary of relevant labs: Labs: Micro: Procedures Cardiology Imaging: I have personally reviewed the past medical history, past surgical history, medications, social history, and family history, and I haveupdated the database accordingly. Allergies: Patient has no known allergies. Review of Systems: Review of Systems Constitutional: Positive for activity change. HENT: Negative for congestion. Eyes: Negative for discharge. Respiratory: Negative for apnea. Cardiovascular: Negative for chest pain. Gastrointestinal: Negative for abdominal distention. Endocrine: Negative for cold intolerance, polydipsia and polyphagia. Genitourinary: Negative for dysuria. Musculoskeletal: Negative for arthralgias. Skin: Negative for color change. Allergic/Immunologic: Negative for immunocompromised state. Neurological: Negative for dizziness. Hematological: Negative for adenopathy. Psychiatric/Behavioral: Negative for agitation. Physical Examination : Physical Exam Constitutional: General: He is not in acute distress. Appearance: Normal appearance. He is not ill-appearing. HENT: Head: Normocephalic and atraumatic. Nose: Nose normal. Mouth/Throat: Mouth: Mucous membranes are moist. Eyes: General: No scleral icterus. Conjunctiva/sclera: Conjunctivae normal. Cardiovascular: Rate and Rhythm: Normal rate and regular rhythm. Heart sounds: No murmur heard. No gallop. Pulmonary: Effort: No respiratory distress. Breath sounds: No wheezing. Abdominal: General: There is no distension. Tenderness: There is no abdominal tenderness. Musculoskeletal: General: No swelling, tenderness, deformity or signs of injury. Cervical back: Neck supple. No rigidity. Skin: Coloration: Skin is not jaundiced. Findings: No bruising. Neurological: Mental Status: He is alert and oriented to person, place, and time. Cranial Nerves: No cranial nerve deficit. Psychiatric: Mood and Affect: Mood normal. Thought Content: Thought content normal. Past Medical History: Past Medical History: Diagnosis Date DM (diabetes mellitus) ([facility]) Encopresis(307.7) Fracture of clavicle Vision abnormalities Past Surgical History: No past surgical history on file. Medications: [START ON 08/26/2024] insulin glargine 34 Units SubCUTAneous Daily And insulin glargine 30 Units SubCUTAneous Nightly ceFAZolin 2000 mg in 20 mL SWFI IV Syringe 2,000 mg IntraVENous Q8H insulin lispro 0-8 Units SubCUTAneous 4x Daily AC & HS sodium chloride flush 5-40 mL IntraVENous 2 times per day gabapentin 100 mg Oral TID pantoprazole 40 mg Oral QAM AC enoxaparin 40 mg SubCUTAneous Daily Social History: Social History Socioeconomic History Marital status: Single Spouse name: Not on file Number of children: Not on file Years of education: Not on file Highest education level: Not on file Occupational History Not on file Tobacco Use Smoking status: Every Day Current packs/day: 1.00 Average packs/day: 1 pack/day for 6.0 years (6.0 ttl pk-yrs) Types: Cigarettes Smokeless tobacco: Never Vaping Use Vaping status: Never Used Substance and Sexual Activity Alcohol use: Yes Comment: socially Drug use: Never Sexual activity: Not on file Other Topics Concern Not on file Social History Narrative Lives with mom,dad, 17 y/o brother in [facility], 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 but doing well otherwise Social Determinants of Health Financial Resource Strain: Low Risk (08/04/2024) Received from [facility] Overall Financial Resource Strain (CARDIA) Difficulty of Paying Living Expenses: Not very hard Food Insecurity: No Food Insecurity (08/04/2024) Received from [facility] Hunger Vital Sign Worried About Running Out of Food in the Last Year: Never true Ran Out of Food in the Last Year: Never true Transportation Needs: No Transportation Needs (08/04/2024) Received from [facility] PRAPARE - Transportation Lack of Transportation (Medical): No Lack of Transportation (Non-Medical): No Physical Activity: Not on file Stress: Not on file Social Connections: Moderately Integrated (09/13/2023) Received from [facility] Social Connection and Isolation Panel [NHANES] Frequency of Communication with Friends and Family: More than three times a week Frequency of Social Gatherings with Friends and Family: More than three times a week Attends Anglican Services: More than 4 times per year Active Member of Clubs or Organizations: Yes Attends Club or Organization Meetings: 1 to 4 times per year Marital Status: Never Intimate Partner Violence: Not At Risk (08/04/2024) Received from [facility] Humiliation, Afraid, Rape, and Kick questionnaire Fear of Current or Ex-Partner: No Emotionally Abused: No Physically Abused: No Sexually Abused: No Housing Stability: Low Risk (08/04/2024) Received from [facility] Housing Stability Vital Sign Unable to Pay for Housing in the Last Year: No Number of Times Moved in the Last Year: 0 Homeless in the Last Year: No Family History: Family History Problem Relation Age of Onset Rheum Arthritis Mother Asthma Mother Other Maternal Grandmother Lupus Breast Cancer Other mat great aunt Diabetes Other extended family Medical Decision Making: I have independently reviewed/ordered the following labs: CBC with Differential: Recent Labs 08/23/24 0706 08/25/24 0720 WBC 7.6 4.0 HGB 9.6* 9.3* HCT 28.9* 27.9* PLT 435 475* LYMPHOPCT 18* 38 MONOPCT 12 12 EOSPCT 2 5* BMP: Recent Labs 08/25/24 0720 NA 139 K 4.1 CL 100 CO2 29 BUN 9 CREATININE 0.5* Hepatic Function Panel: No results for input(s): LABALBU , BILIDIR , IBILI , BILITOT , ALKPHOS , ALT , AST in the last 72 hours. Invalid input(s): PROT No results for input(s): RPR in the last 72 hours. No results for input(s): HIV in the last 72 hours. No results for input(s): BC in the last 72 hours. Lab Results Component Value Date/Time CREATININE 0.5 08/25/2024 07:20 AM GLUCOSE 336 08/25/2024 07:20 AM Detailed results: Thank you for allowing us to participate in the care of this patient.Please call with questions. This note is created with the assistance of a speech recognition program. While intending to generate adocument that actually reflects the content of the visit, the document can still have some errors including those of syntax and sound a like substitutions which may escape proof reading. It such instances, actual meaningcan be extrapolated by contextual diversion. Travon Henry MD Office: Perfect serve / office [phone] * Mook James DO - 08/25/2024 8:45 AM EST Images from the original note were not included. [facility] Office: [phone] Lito Walls DO, Mook James DO, Ej Cunningham DO, Aniceto Herrera DO, Joss Fox MD, Antonella East MD, Elke Vasquez MD, Josselin Topete MD, Cleve Paul MD, Landen Barrientos MD, Rex Yoon MD, Rosalina Morales DO, Efraín Chavez MD, Gama Rico MD, Jorge Walls DO, Magaly Olivia MD, Toño Mcconnell DO, Maggy Vasquez MD, Rashmi Del Angel MD, Enriqueta Vasquez MD, Tierra Banuelos MD, Veto Walker MD, Jose David Bravo MD, Caridad Samuels MD, Paz Peterson MD, Tong Champion MD, Garcia Dyer MD, Rob Edwards DO, Kalyan Freeman MD, Rosalina Solis MD, Larry Solis MD, Rosie Quevedo, DEALERSHIP MANAGER, Rachel King, DEALERSHIP MANAGER, Rob Martinez, DEALERSHIP MANAGER, Cristy Galindo, [facility], Kika Turner, DEALERSHIP MANAGER, Alyson Thomas, [facility], Xenia Cates, DEALERSHIP MANAGER, Rachna Yap, DEALERSHIP MANAGER, Iman Ortiz PA-C, Josiane Vail, DEALERSHIP MANAGER, Heydi Whaley, DEALERSHIP MANAGER, Adrianna Weinstein, DEALERSHIP MANAGER, Shannon Cantu, DEALERSHIP MANAGER, Morena Randle, [facility],Jovita Laird, [facility], Megha Wesley, DEALERSHIP MANAGER, Dina Au, DEALERSHIP MANAGER, Annie Lewis, DEALERSHIP MANAGER IN-PATIENT SERVICE [facility] Progress Note 08/25/2024 8:45 AM Name: Isaias Estrella Acct: [id number] Room: [facility] Day: 4 Admit Date: 08/21/2024 7:25 PM PCP: Senia Fernandez PA-C Code Status: Full Code Subjective: C/C: Abdominal pain Interval History Status: Right-sided abdominal pain with radiation to groin has been stable Patient ambulating No fever, chills, sweats Drain still collecting bloody fluid Data Base Updates: Afebrile WBC4.0k/uL RBC3.02 Low m/uL Hemoglobin9.3 Low [id number] High Blood sugars still not at goal [id number] High [id number] High Culture, Anaerobic and Aerobic [[id number]] (Abnormal) Collected: 08/22/24 1712 Updated: 08/25/24 0808 Specimen Source: Abscess Specimen Description.ABSCESS PSOAS Direct ExamFEW NEUTROPHILS FEW GRAM POSITIVE COCCI IN CLUSTERS Abnormal CultureSTAPHYLOCOCCUS AUREUS MODERATE GROWTH This isolate is methicillin susceptible. Abnormal No anaerobic organisms isolated at 3 days Brief History: As documented in the medical record: Isaias Estrella is a 24 y.o. Non- / non male pmh diabetes type 1 , and tobacco dependence who presented to [facility] with complaints of pain with ambulation secondary to right groin pain which started around August 01 and got progressively worse . [facility] 08/15/2024 which demonstrated 4 to 5 mm pulmonary nodule left lung base and promi nent collections within the right iliac muscle differentials could be hematoma versus abscess . Dueto these findings he was sent to [facility] for IR evaluation and placement of a Pigtail catheter and GEORGES drain 08/15/2024. Patient initially reported some initial relief from pressure and discomfort in the right groin but that dissipated . Repeat CT abd pelvis 08/20/2024 demonstrated abscess was grossly unchanged from prior CT measuring 7.1 x 6.7 cm . Patient evaluated by infectious diseaseand placed on cefazolin due to sensitivities obtained from abscess drainage. Despite continued IV antibiotic and current drain in place, patient has not made significant improvements. Dr. Crisostomo from general surgery was contacted by [facility] ([facility] ) and agreed to consult. Therefore, patient transferred to surgical evaluation. 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 Patient reports initial symptom relief-which has now dissipated, repeat CAT scan 08/20/2024 demonstrated grossly unchanged when compared to prior CT of the pelvis study Will reculture, trend CBC, sed rate and CRP 2. Pain secondary to #1-will try multimodal pain management. Will increased gabapentin to 100mg tid 3. Ambulatory dysfunction secondary to #1-fall precaution 4. Diabetes type 1-resume daily basal insulin along with sliding scale coverage Was requiring 55units of lantus (h/o taking 15units at home) Will order 55 units in divided doses 5. Murmur- obtain 2 d echo for further evaluation 6. Bilateral pulmonary nodules-6 mm left lower lobe- 7. Dvt ppx-Lovenox Database has included: Scrotal ultrasound Unremarkable scrotal ultrasound. Normal testicular spectral doppler evaluation. Signed by Sylvie Yin MD Echocardiogram: Left Ventricle: Normal left ventricular systolic function with a visually estimated EF of 55 - 60%. EF 3D is 54%. Left ventricle size is normal. Normal wall thickness. Normal wall motion. Normal diastolic function. Right Ventricle: Normal systolic function. TAPSE is normal. TAPSE is 3.1 cm. RV Peak S' is 17.1 cm/s. TDI systolic excursion is normal. Aortic Valve: Trileaflet valve. No regurgitation. No stenosis. Mitral Valve: Trace regurgitation. Tricuspid Valve: Mild regurgitation. Normal RVSP. The estimated RVSP is 22 mmHg. Pericardium: Trivial pericardial effusion present. Image quality is good. 08/22: FINDINGS: Ultrasound shows a very complex echogenic an echo poor collection in the region of the right iliacus; existing catheter was mostly dislodged. Wire placement was demonstrated on sonography and fluoroscopy along the anterior aspect of the collection, but within it; final tube position is satisfactory. Patient tolerated procedure well. Impression: Successful placement of a 10 Greek drainage catheter in a suspected right iliacus abscess, as above. Further imaging assessment and possible up sizing may be require Past Medical History: has a past medical history of DM (diabetes mellitus) (HCC), Encopresis(307.7), Fracture of clavicle, and Vision abnormalities. Social History: reports that he has been smoking cigarettes. He has a 6 pack- year smoking history. He has never used smokeless tobacco. He reports current alcohol use. He reports that he does not usedrugs. Family History: Family History Problem Relation Age of Onset Rheum Arthritis Mother Asthma Mother Other Maternal Grandmother Lupus Breast Cancer Other mat great aunt Diabetes Other extended family Review of Systems: Review of Systems Constitutional: Negative for chills, diaphoresis and fever. Respiratory: Negative for cough and shortness of breath. Cardiovascular: Negative for chest pain and palpitations. Gastrointestinal: Positive for abdominal pain (Improving, pain radiates to groin). Negative for nausea and vomiting. Genitourinary: Negative for flank pain and hematuria. Physical Examination: Vitals BP 106/63 Pulse 67 Temp 98 F (36.7 C) (Oral) Resp 16 Ht 1.829 m (6') Wt 74.6 kg (164 lb 7.4 oz) SpO2 95% BMI 22.31 kg/m Temp (24hrs), Av F (36.7 C), Min:97.5 F (36.4 C), Max:98.5 F (36.9 C) Recent Labs 08/24/24 1133 08/24/24 1628 08/24/240 08/25/24 0707 POCGLU 177* 288* 243* 324* Physical Exam Vitals reviewed. Constitutional: General: He is not in acute distress. Appearance: He is not diaphoretic. HENT: Head: Normocephalic. Nose: Nose normal. Eyes: General: No scleral icterus. Conjunctiva/sclera: Conjunctivae normal. Neck: Trachea: No tracheal deviation. Cardiovascular: Rate and Rhythm: Normal rate and regular rhythm. Pulmonary: Effort: Pulmonary effort is normal. No respiratory distress. Breath sounds: Normal breath sounds. No wheezing or rales. Chest: Chest wall: No tenderness. Abdominal: General: There is no distension. Palpations: Abdomen is soft. Tenderness: There is no abdominal tenderness. There is no guarding. Comments: Drain site stable Drain collecting bloody fluid Musculoskeletal: General: No tenderness. Cervical back: Neck supple. Skin: General: Skin is warm and dry. Neurological: Mental Status: He is alert. Medications: Allergies: No Known Allergies Current Meds: Scheduled Meds: ceFAZolin 2000 mg in 20 mL SWFI IV Syringe 2,000 mg IntraVENous Q8H insulin glargine 34 Units SubCUTAneous Daily And insulin glargine 28 Units SubCUTAneous Nightly insulin lispro 0-8 Units SubCUTAneous 4x Daily AC & HS sodium chloride flush 5-40 mL IntraVENous 2 times per day gabapentin 100 mg Oral TID pantoprazole 40 mg Oral QAM AC enoxaparin 40 mg SubCUTAneous Daily Continuous Infusions: sodium chloride dextrose PRN Meds: HYDROmorphone, oxyCODONE, oxyCODONE, acetaminophen, sodium chloride flush, sodium chloride, glucose, dextrose bolus OR dextrose bolus, glucagon (rDNA), dextrose, acetaminophen Data: I/O (24Hr): Intake/Output Summary (Last 24 hours) at 08/25/2024 0845 Last data filed at 08/25/2024 0616 Gross per 24 hour Intake 10 ml Output 100 ml Net -90 ml Labs: Hematology: Recent Labs 08/23/24 0706 08/25/24 0720 WBC 7.6 4.0 RBC 3.05* 3.02* HGB 9.6* 9.3* HCT 28.9* 27.9* MCV 94.8 92.4 MCH 31.5 30.8 MCHC 33.2 33.3 RDW 11.6* 11.8 PLT 435 475* MPV 8.7 8.7 SEDRATE 53* -- CRP 206.0* -- Chemistry: Recent Labs 08/23/24 0150 08/23/24 0706 08/23/24 1450 LACTACIDWB 1.0 0.9 1.2 Recent Labs 08/23/24200708/24/24 0642 08/24/24 1133 08/24/24 1628 08/24/24204908/25/24 0707 POCGLU 339* 207* 177* 288* 243* 324* ABG:No results found for: POCPH , PHART , PH , POCPCO2 , LEV9JCU , PCO2 , POCPO2 , PO2ART , PO2 , POCHCO3 , MXD9VQS , HCO3 , NBEA , PBEA , BEART , BE , THGBART , THB , HYB4LSX , LJPE5NVD , G2KKYMCD , O2SAT , FIO2 Lab Results Component Value Date/Time SPECIAL L ARM 1ML 08/21/2024 07:47 PM SPECIAL R ARM 1ML 08/21/2024 07:47 PM Lab Results Component Value Date/Time CULTURE (A) 08/22/2024 05:12 PM STAPHYLOCOCCUS AUREUS MODERATE GROWTH This isolate is methicillin susceptible. CULTURE No anaerobic organisms isolated at 3 days. 08/22/2024 05:12 PM Radiology: No results found. 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 Follow-up with PCP in one week, Senia Fernandez PA-C Notify PCP of discharge IP CONSULT TO GENERAL SURGERY IP CONSULT TO INFECTIOUS DISEASES Mook James DO 08/25/2024 8:45 AM * Mook James DO - 08/24/2024 12:20 PM EST Images from the original note were not included. [facility] Office: [phone] Lito Walls DO, Mook James DO, Ej Cunningham DO, Aniceto Herrera DO, Joss Fox MD, Antonella East MD, Elke Vasquez MD, Josselin Topete MD, Cleve Paul MD, Landen Barrientos MD, Rex Yoon MD, Rosalina Morales DO, Efraín Chavez MD, Gama Rico MD, Jorge Walls DO, Magaly Olivia MD, Toño Mcconnell DO, Maggy Vasquez MD, Rashmi Del Angel MD, Enriqueta Vasquez MD, Tierra Banuelos MD, Veto Walker MD, Jose David Bravo MD, Caridad Samuels MD, Paz Peterson MD, Tong Champion MD, Garcia Dyer MD, Rob Edwards DO, Kalyan Freeman MD, Rosalina Solis MD, Larry Solis MD, Rosie Quevedo, DEALERSHIP MANAGER, Rachel King, DEALERSHIP MANAGER, Rob Martinez, DEALERSHIP MANAGER, Cristy Galindo, HAN, Kika Turner, DEALERSHIP MANAGER, Alyson Thomas, DEALERSHIP MANAGER, Xenia Cates, DEALERSHIP MANAGER, Rachna Yap, DEALERSHIP MANAGER, Iman Ortiz PA-C, Josiane Vail, DEALERSHIP MANAGER, Heydi Whaley, DEALERSHIP MANAGER, Adrianna Weinstein, DEALERSHIP MANAGER, Shannon Cantu, DEALERSHIP MANAGER, Morena Randle, DEALERSHIP MANAGER,Jovita Laird, [facility], Megha Wesley, DEALERSHIP MANAGER, Dina Au, DEALERSHIP MANAGER, Annie Lewis CNP IN-PATIENT SERVICE [facility] Progress Note 08/24/2024 12:25 PM Name: Isaias Estrella Acct: [id number] Room: 0241/0241-01 IP Day: 3 Admit Date: 08/21/2024 7:25 PM PCP: Senia Fernandez PA-C Code Status: Full Code Subjective: C/C: Abdominal pain Interval History Status: No distress Abdominal pain improved Off IGNITION EXPERT Pain rated 5/10 No chills, sweats, malaise Drain still collecting bloody fluid Data Base Updates: Afebrile Blood sugars better controlled Procalcitonin0.12 High Culture, Anaerobic and Aerobic [[id number]] (Abnormal) Collected: 08/22/24 1712 Updated: 08/24/24 1111 Specimen Source: Abscess Specimen Description.ABSCESS PSOAS Direct ExamFEW NEUTROPHILS FEW GRAM POSITIVE COCCI IN CLUSTERS Abnormal CultureSTAPHYLOCOCCUS AUREUS MODERATE GROWTH This isolate is methicillin susceptible. Abnormal No anaerobic organisms isolated at 2 days. Brief History: As documented in the medical record: Isaias Estrella is a 24 y.o. Non- / non male pmh diabetes type 1 , and tobacco dependence who presented to [facility] with complaints of pain with ambulation secondary to right groin pain which started around August 01 and got progressively worse . At the [facility] heunderwent a CAT scan 08/15/2024 which demonstrated 4 to 5 mm pulmonary nodule left lung base and promi nent collections within the right iliac muscle differentials could be hematoma versus abscess . Dueto these findings he was sent to [facility] for IR evaluation and placement of a Pigtail catheter and GEORGES drain 08/15/2024. Patient initially reported some initial relief from pressure and discomfort in the right groin but that dissipated . Repeat CT abd pelvis 08/20/2024 demonstrated abscess was grossly unchanged from prior CT measuring 7.1 x 6.7 cm . Patient evaluated by infectious diseaseand placed on cefazolin due to sensitivities obtained from abscess drainage. Despite continued IV antibiotic and current drain in place, patient has not made significant improvements. Dr. Crisostomo from general surgery was contacted by [facility] ([facility]) and agreed to consult. Therefore, patient transferred to surgical evaluation. 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 Patient reports initial symptom relief-which has now dissipated, repeat CAT scan 08/20/2024 demonstrated grossly unchanged when compared to prior CT of the pelvis study Will reculture, trend CBC, sed rate and CRP 2. Pain secondary to #1-will try multimodal pain management. Will increased gabapentin to 100mg tid 3. Ambulatory dysfunction secondary to #1-fall precaution 4. Diabetes type 1-resume daily basal insulin along with sliding scale coverage Was requiring 55units of lantus (h/o taking 15units at home) Will order 55 units in divided doses 5. Murmur- obtain 2 d echo for further evaluation 6. Bilateral pulmonary nodules-6 mm left lower lobe- 7. Dvt ppx-Lovenox Database has included: Scrotal ultrasound Unremarkable scrotal ultrasound. Normal testicular spectral doppler evaluation. Signed by Sylvie Yin MD Echocardiogram: Left Ventricle: Normal left ventricular systolic function with a visually estimated EF of 55 - 60%. EF 3D is 54%. Left ventricle size is normal. Normal wall thickness. Normal wall motion. Normal diastolic function. Right Ventricle: Normal systolic function. TAPSE is normal. TAPSE is 3.1 cm. RV Peak S' is 17.1 cm/s. TDI systolic excursion is normal. Aortic Valve: Trileaflet valve. No regurgitation. No stenosis. Mitral Valve: Trace regurgitation. Tricuspid Valve: Mild regurgitation. Normal RVSP. The estimated RVSP is 22 mmHg. Pericardium: Trivial pericardial effusion present. Image quality is good. 08/22: FINDINGS: Ultrasound shows a very complex echogenic an echo poor collection in the region of the right iliacus; existing catheter was mostly dislodged. Wire placement was demonstrated on sonography and fluoroscopy along the anterior aspect of the collection, but within it; final tube position is satisfactory. Patient tolerated procedure well. Impression: Successful placement of a 10 Greek drainage catheter in a suspected right iliacus abscess, as above. Further imaging assessment and possible up sizing may be require Past Medical History: has a past medical history of DM (diabetes mellitus) (HCC), Encopresis(307.7), Fracture of clavicle, and Vision abnormalities. Social History: reports that he has been smoking cigarettes. He has a 6 pack- year smoking history. He has never used smokeless tobacco. He reports current alcohol use. He reports that he does not usedrugs. Family History: Family History Problem Relation Age of Onset Rheum Arthritis Mother Asthma Mother Other Maternal Grandmother Lupus Breast Cancer Other mat great aunt Diabetes Other extended family Review of Systems: Review of Systems Constitutional: Negative for chills, diaphoresis and fever. Respiratory: Negative for cough and shortness of breath. Cardiovascular: Negative for chest pain and palpitations. Gastrointestinal: Positive for abdominal pain (Improving). Negative for nausea and vomiting. Genitourinary: Negative for flank pain and hematuria. Physical Examination: Vitals BP 109/63 Pulse 79 Temp 97.5 F (36.4 C) (Oral) Resp 18 Ht 1.829 m (6') Wt 74.6 kg (164 lb7.4 oz) SpO2 98% BMI 22.31 kg/m Temp (24hrs), Av F (36.7 C), Min:97.5 F (36.4 C), Max:98.6 F (37 C) Recent Labs 08/23/24 1536 08/23/24200708/24/24 0642 08/24/24 1133 POCGLU 317* 339* 207* 177* Physical Exam Vitals reviewed. Constitutional: General: He is not in acute distress. Appearance: He is not diaphoretic. HENT: Head: Normocephalic. Nose: Nose normal. Eyes: General: No scleral icterus. Conjunctiva/sclera: Conjunctivae normal. Neck: Trachea: No tracheal deviation. Cardiovascular: Rate and Rhythm: Normal rate and regular rhythm. Pulmonary: Effort: Pulmonary effort is normal. No respiratory distress. Breath sounds: Normal breath sounds. No wheezing or rales. Chest: Chest wall: No tenderness. Abdominal: General: There is no distension. Palpations: Abdomen is soft. Tenderness: There is no abdominal tenderness. There is no guarding. Comments: Drain site stable Drain collecting bloody fluid Musculoskeletal: General: No tenderness. Cervical back: Neck supple. Skin: General: Skin is warm and dry. Neurological: Mental Status: He is alert. Medications: Allergies: No Known Allergies Current Meds: Scheduled Meds: ceFAZolin 2000 mg in 20 mL SWFI IV Syringe 2,000 mg IntraVENous Q8H insulin glargine 34 Units SubCUTAneous Daily And insulin glargine 28 Units SubCUTAneous Nightly insulin lispro 0-8 Units SubCUTAneous 4x Daily AC & HS sodium chloride flush 5-40 mL IntraVENous 2 times per day gabapentin 100 mg Oral TID pantoprazole 40 mg Oral QAM AC naproxen 250 mg Oral TID WC enoxaparin 40 mg SubCUTAneous Daily Continuous Infusions: sodium chloride dextrose PRN Meds: HYDROmorphone, oxyCODONE, oxyCODONE, acetaminophen, sodium chloride flush, sodium chloride, glucose, dextrose bolus OR dextrose bolus, glucagon (rDNA), dextrose, acetaminophen Data: I/O (24Hr): Intake/Output Summary (Last 24 hours) at 08/24/2024 1225 Last data filed at 08/24/2024 0815 Gross per 24 hour Intake 124.8 ml Output 80 ml Net 44.8 ml Labs: Hematology: Recent Labs 08/21/24 2218 08/22/24 0800 08/23/24 0706 WBC -- 8.7 7.6 RBC -- 2.98* 3.05* HGB -- 9.2* 9.6* HCT -- 28.7* 28.9* MCV -- 96.3 94.8 MCH -- 30.9 31.5 MCHC -- 32.1 33.2 RDW -- 11.3* 11.6* PLT -- 375 435 MPV -- 8.6 8.7 SEDRATE 65* -- 53* CRP 237.0* -- 206.0* INR 1.2 -- -- Chemistry: Recent Labs 08/21/24194608/22/2479908/22/24202708/23/24 0150 08/23/24 0706 08/23/24 1450 NA 134* 132* -- -- -- -- K 4.3 4.4 -- -- -- -- CL 95* 97* -- -- -- -- CO2 29 24 -- -- -- -- GLUCOSE 166* 287* -- -- -- -- BUN 11 9 -- -- -- -- CREATININE 0.6* 0.5* -- -- -- -- ANIONGAP 10 11 -- -- -- -- LABGLOM >90 >90 -- -- -- -- CALCIUM 9.6 9.3 -- -- -- -- LACTACIDWB -- -- < > 1.0 0.9 1.2 < > = values in this interval not displayed. Recent Labs 08/21/24194608/21/24204708/22/2479908/22/24 1130 08/23/24 0650 08/23/24 1144 08/23/24 1536 08/23/24 2008 08/24/24 0642 08/24/24 1133 AST 15 -- 10 -- -- -- -- -- -- -- ALT 6* -- <5* -- -- -- -- -- -- -- ALKPHOS 138* -- 120 -- -- -- -- -- -- -- BILITOT 0.4 -- 0.4 -- -- -- -- -- -- -- POCGLU -- < > -- < > 305* 286* 317* 339* 207* 177* < > = values in this interval not displayed. ABG:No results found for: POCPH , PHART , PH , POCPCO2 , IJA3IQL , PCO2 , POCPO2 , PO2ART , PO2 , POCHCO3 , FBC8DTD , HCO3 , NBEA , PBEA , BEART , BE , THGBART , THB , ADT9ERS , YPZG2QTF , M5VBERED , O2SAT , FIO2 Lab Results Component Value Date/Time SPECIAL L ARM 1ML 08/21/2024 07:47 PM SPECIAL R ARM 1ML 08/21/2024 07:47 PM Lab Results Component Value Date/Time CULTURE (A) 08/22/2024 05:12 PM STAPHYLOCOCCUS AUREUS MODERATE GROWTH This isolate is methicillin susceptible. CULTURE No anaerobic organisms isolated at 2 days. 08/22/2024 05:12 PM Radiology: No results found. 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 Follow-up with PCP in one week, Senia Fernandez PA-C Notify PCP of discharge IP CONSULT TO GENERAL SURGERY IP CONSULT TO INFECTIOUS DISEASES Mook James DO 08/24/2024 12:25 PM * Ronnie Torres MD - 08/24/2024 11:16 AM EST Images from the original note were not included. [facility] - Infectious diseases evaluation admission date 08/21/2024 reason for consultation: MSSA R psoas abscess Impression : Current: R iliac muscle abscess - MSSA in [facility] DM type 1 Smoker Discussion / summary of stay / plan of care/ Recommendations: Ancef for now Anticipate ancef till full resolution of the R iliac abscess Recommendations: Ancef 2 gm IV q 8 hr. Stop date to be determined by Dr Jo' Infection Control Recommendations [place] Precautions Contact Isolation Antimicrobial Stewardship Recommendations Simplification of therapy Targeted therapy History of Present Illness: Initial history: Isaias Estrella is a 24 y.o.-year-old male diabetic for the last few years and smoker who developed increasing right groin pain ongoing for few days and decided to go to [facility] where a CT scan on 08/15 demonstrated this a right iliac muscle hematoma versus abscess. Interventional radiology placed a pigtail on 08/15/2024, getting some pus followed by some blood. A repeat CT of the pelvis 08/20 demonstrated an abscess unchanged compared to before and measuring 7 x 6.7 cm. According to the reports he had cultures showing MSSA and he was started on cefazolin. But due to lack of improvement he was sent to [place] for surgical evaluation No repeat CT scan was done at [facility] since admission Blood cultures 08/21 remain negative IR increased the size of the drain 08/22 due to lack of drainage, it is at this time showing blood His white count is 8.7 His creatinine is 0.5 Infectious disease consulted for antibiotic management, so far our cultures are negative Interval changes 08/24/2024 Patient Vitals for the past 8 hrs: BP Temp Temp src Pulse Resp SpO2 08/24/24 0815 106/61 98.1 F (36.7 C) Oral 88 16 97 % CURRENT EVALUATION :08/24/2024 Afebrile VS stable Patient feels better No complaints No new issues reported Medications reviewed: On Ancef 2 gm IV q 8 hr Summary of relevant labs:08/24/2024 Labs: WBC 7.6 Hb 9.6 Plat 435 Micro: 08-22-24: Psoas abscess: S aureus Blood: 08-21-24: No growth Procedures Cardiology Imaging: I have personally reviewed the past medical history, past surgical history, medications, social history, and family history, and I haveupdated the database accordingly. Allergies: Patient has no known allergies. Review of Systems: Review of Systems Constitutional: Positive for activity change. HENT: Negative for congestion. Eyes: Negative for discharge. Respiratory: Negative for apnea. Cardiovascular: Negative for chest pain. Gastrointestinal: Negative for abdominal distention. Endocrine: Negative for cold intolerance. Genitourinary: Negative for dysuria. Musculoskeletal: Negative for arthralgias. Skin: Negative for color change. Allergic/Immunologic: Negative for immunocompromised state. Neurological: Negative for dizziness. Hematological: Negative for adenopathy. Psychiatric/Behavioral: Negative for agitation. Physical Examination : Physical Exam Constitutional: General: He is not in acute distress. Appearance: Normal appearance. He is not ill-appearing. HENT: Head: Normocephalic and atraumatic. Nose: Nose normal. Mouth/Throat: Mouth: Mucous membranes are moist. Eyes: General: No scleral icterus. Conjunctiva/sclera: Conjunctivae normal. Cardiovascular: Rate and Rhythm: Normal rate and regular rhythm. Heart sounds: No murmur heard. No gallop. Pulmonary: Effort: No respiratory distress. Breath sounds: No wheezing. Abdominal: General: There is no distension. Tenderness: There is no abdominal tenderness. Musculoskeletal: General: No swelling or deformity. Cervical back: Neck supple. No rigidity. Skin: Coloration: Skin is not jaundiced. Findings: No bruising. Neurological: Mental Status: He is alert and oriented to person, place, and time. Cranial Nerves: No cranial nerve deficit. Psychiatric: Mood and Affect: Mood normal. Thought Content: Thought content normal. Past Medical History: Past Medical History: Diagnosis Date DM (diabetes mellitus) ([facility]) Encopresis(307.7) Fracture of clavicle Vision abnormalities Past Surgical History: No past surgical history on file. Medications: ceFAZolin (ANCEF) 2,000 mg in sterile water 10 mL IV syringe 2,000 mg IntraVENous Q8H insulin glargine 34 Units SubCUTAneous Daily And insulin glargine 28 Units SubCUTAneous Nightly insulin lispro 0-8 Units SubCUTAneous 4x Daily AC & HS sodium chloride flush 5-40 mL IntraVENous 2 times per day gabapentin 100 mg Oral TID pantoprazole 40 mg Oral QAM AC naproxen 250 mg Oral TID WC enoxaparin 40 mg SubCUTAneous Daily Social History: Social History Socioeconomic History Marital status: Single Spouse name: Not on file Number of children: Not on file Years of education: Not on file Highest education level: Not on file Occupational History Not on file Tobacco Use Smoking status: Every Day Current packs/day: 1.00 Average packs/day: 1 pack/day for 6.0 years (6.0 ttl pk-yrs) Types: Cigarettes Smokeless tobacco: Never Vaping Use Vaping status: Never Used Substance and Sexual Activity Alcohol use: Yes Comment: socially Drug use: Never Sexual activity: Not on file Other Topics Concern Not on file Social History Narrative Lives with mom,dad, 17 y/o brother in [facility], 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 but doing well otherwise Social Determinants of Health Financial Resource Strain: Low Risk (08/04/2024) Received from [facility] Overall Financial Resource Strain (CARDIA) Difficulty of Paying Living Expenses: Not very hard Food Insecurity: No Food Insecurity (08/04/2024) Received from [facility] Hunger Vital Sign Worried About Running Out of Food in the Last Year: Never true Ran Out of Food in the Last Year: Never true Transportation Needs: No Transportation Needs (08/04/2024) Received from [facility] PRAPARE - Transportation Lack of Transportation (Medical): No Lack of Transportation (Non-Medical): No Physical Activity: Not on file Stress: Not on file Social Connections: Moderately Integrated (09/13/2023) Received from [facility] Social Connection and Isolation Panel [NHANES] Frequency of Communication with Friends and Family: More than three times a week Frequency of Social Gatherings with Friends and Family: More than three times a week Attends Anglican Services: More than 4 times per year Active Member of Clubs or Organizations: Yes Attends Club or Organization Meetings: 1 to 4 times per year Marital Status: Never Intimate Partner Violence: Not At Risk (08/04/2024) Received from [facility] Humiliation, Afraid, Rape, and Kick questionnaire Fear of Current or Ex-Partner: No Emotionally Abused: No Physically Abused: No Sexually Abused: No Housing Stability: Low Risk (08/04/2024) Received from [facility] Housing Stability Vital Sign Unable to Pay for Housing in the Last Year: No Number of Times Moved in the Last Year: 0 Homeless in the Last Year: No Family History: Family History Problem Relation Age of Onset Rheum Arthritis Mother Asthma Mother Other Maternal Grandmother Lupus Breast Cancer Other mat great aunt Diabetes Other extended family Medical Decision Making: I have independently reviewed/ordered the following labs: CBC with Differential: Recent Labs 08/22/24 0800 08/23/24 0706 WBC 8.7 7.6 HGB 9.2* 9.6* HCT 28.7* 28.9* PLT 375 435 LYMPHOPCT 13* 18* MONOPCT 13* 12 EOSPCT 2 2 BMP: Recent Labs 08/21/24194608/22/24 0800 NA 134* 132* K 4.3 4.4 CL 95* 97* CO2 29 24 BUN 11 9 CREATININE 0.6* 0.5* Hepatic Function Panel: Recent Labs 08/21/24194608/22/24 0800 BILITOT 0.4 0.4 ALKPHOS 138* 120 ALT 6* <5* AST 15 10 No results for input(s): RPR in the last 72 hours. No results for input(s): HIV in the last 72 hours. No results for input(s): BC in the last 72 hours. Lab Results Component Value Date/Time CREATININE 0.5 08/22/2024 08:00 AM GLUCOSE 287 08/22/2024 08:00 AM Detailed results: Thank you for allowing us to participate in the care of this patient.Please call with questions. This note is created with the assistance of a speech recognition program. While intending to generate adocument that actually reflects the content of the visit, the document can still have some errors including those of syntax and sound a like substitutions which may escape proof reading. It such instances, actual meaningcan be extrapolated by contextual diversion. Ronnie Torres MD Office: [facility] / office [phone] * Ronnie Torres MD - 08/23/2024 3:37 PM EST Images from the original note were not included. [facility] - Infectious diseases evaluation admission date 08/21/2024 reason for consultation: MSSA R psoas abscess Impression : Current: R iliac muscle abscess - MSSA in [facility] DM type 1 Smoker Discussion / summary of stay / plan of care/ Recommendations: Ancef for now Anticipate ancef till full resolution of the R iliac abscess Recommendations: Ancef 2 gm IV q 8 hr. Stop date to be determined by Dr Jo' Infection Control Recommendations [place] Precautions Contact Isolation Antimicrobial Stewardship Recommendations Simplification of therapy Targeted therapy History of Present Illness: Initial history: Isaias Estrella is a 24 y.o.-year-old male diabetic for the last few years and smoker who developed increasing right groin pain ongoing for few days and decided to go to [facility] where a CT scan on 08/15 demonstrated this a right iliac muscle hematoma versus abscess. Interventional radiology placed a pigtail on 08/15/2024, getting some pus followed by some blood. A repeat CT of the pelvis 08/20 demonstrated an abscess unchanged compared to before and measuring 7 x 6.7 cm. According to the reports he had cultures showing MSSA and he was started on cefazolin. But due to lack of improvement he was sent to [place] for surgical evaluation No repeat CT scan was done at [place] since admission Blood cultures 08/21 remain negative IR increased the size of the drain 08/22 due to lack of drainage, it is at this time showing blood His white count is 8.7 His creatinine is 0.5 Infectious disease consulted for antibiotic management, so far our cultures are negative Interval changes 08/23/2024 Patient Vitals for the past 8 hrs: BP Temp Temp src Pulse Resp SpO2 08/23/24 1500 102/65 -- -- 88 14 97 % 08/23/24 1400 102/61 97.9 F (36.6 C) Oral 82 14 98 % 08/23/24 1300 108/66 97.9 F (36.6 C) Oral 83 14 98 % 08/23/24 1200 109/71 97.9 F (36.6 C) Oral 78 16 96 % 08/23/24 1146 107/69 97.7 F (36.5 C) Oral 81 14 99 % 08/23/24 1130 97/63 98.1 F (36.7 C) Oral 68 14 96 % 08/23/24 1115 (!) 95/57 98.2 F (36.8 C) Oral 72 14 96 % 08/23/24 1100 104/65 98.2 F (36.8 C) Oral 74 16 98 % 08/23/24 1058 -- -- Oral 72 18 -- 08/23/24 0745 103/61 98.2 F (36.8 C) Oral 73 16 94 % CURRENT EVALUATION : Afebrile VS stable Patient feels better No complaints No new issues reported Medications reviewed: On Ancef 2 gm IV q 8 hr Summary of relevant labs: Labs: WBC 7.6 Hb 9.6 Plat 435 Micro: 08-22-24: Psoas abscess: S aureus Blood: 08-21-24: No growth Procedures Cardiology Imaging: I have personally reviewed the past medical history, past surgical history, medications, social history, and family history, and I haveupdated the database accordingly. Allergies: Patient has no known allergies. Review of Systems: Review of Systems Constitutional: Positive for activity change. HENT: Negative for congestion. Eyes: Negative for discharge. Respiratory: Negative for apnea. Cardiovascular: Negative for chest pain. Gastrointestinal: Negative for abdominal distention. Endocrine: Negative for cold intolerance. Genitourinary: Negative for dysuria. Musculoskeletal: Negative for arthralgias. Skin: Negative for color change. Allergic/Immunologic: Negative for immunocompromised state. Neurological: Negative for dizziness. Hematological: Negative for adenopathy. Psychiatric/Behavioral: Negative for agitation. Physical Examination : Physical Exam Constitutional: General: He is not in acute distress. Appearance: Normal appearance. He is not ill-appearing. HENT: Head: Normocephalic and atraumatic. Nose: Nose normal. Mouth/Throat: Mouth: Mucous membranes are moist. Eyes: General: No scleral icterus. Conjunctiva/sclera: Conjunctivae normal. Cardiovascular: Rate and Rhythm: Normal rate and regular rhythm. Heart sounds: No murmur heard. No gallop. Pulmonary: Effort: No respiratory distress. Breath sounds: No wheezing. Abdominal: General: There is no distension. Tenderness: There is no abdominal tenderness. Musculoskeletal: General: No swelling or deformity. Cervical back: Neck supple. No rigidity. Skin: Coloration: Skin is not jaundiced. Findings: No bruising. Neurological: Mental Status: He is alert and oriented to person, place, and time. Cranial Nerves: No cranial nerve deficit. Psychiatric: Mood and Affect: Mood normal. Thought Content: Thought content normal. Past Medical History: Past Medical History: Diagnosis Date DM (diabetes mellitus) (HCC) Encopresis(307.7) Fracture of clavicle Vision abnormalities Past Surgical History: No past surgical history on file. Medications: insulin glargine 34 Units SubCUTAneous Daily And insulin glargine 28 Units SubCUTAneous Nightly insulin lispro 0-8 Units SubCUTAneous 4x Daily AC & HS sodium chloride flush 5-40 mL IntraVENous 2 times per day ceFAZolin (ANCEF) 1,000 mg in sterile water 10 mL IV syringe 1,000 mg IntraVENous Q8H gabapentin 100 mg Oral TID pantoprazole 40 mg Oral QAM AC naproxen 250 mg Oral TID WC enoxaparin 40 mg SubCUTAneous Daily Social History: Social History Socioeconomic History Marital status: Single Spouse name: Not on file Number of children: Not on file Years of education: Not on file Highest education level: Not on file Occupational History Not on file Tobacco Use Smoking status: Every Day Current packs/day: 1.00 Average packs/day: 1 pack/day for 6.0 years (6.0 ttl pk-yrs) Types: Cigarettes Smokeless tobacco: Never Vaping Use Vaping status: Never Used Substance and Sexual Activity Alcohol use: Yes Comment: socially Drug use: Never Sexual activity: Not on file Other Topics Concern Not on file Social History Narrative Lives with mom,dad, 17 y/o brother in [facility], 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 but doing well otherwise Social Determinants of Health Financial Resource Strain: Low Risk (08/04/2024) Received from [facility] Overall Financial Resource Strain (CARDIA) Difficulty of Paying Living Expenses: Not very hard Food Insecurity: No Food Insecurity (08/04/2024) Received from [facility] Hunger Vital Sign Worried About Running Out of Food in the Last Year: Never true Ran Out of Food in the Last Year: Never true Transportation Needs: No Transportation Needs (08/04/2024) Received from [facility] PRAPARE - Transportation Lack of Transportation (Medical): No Lack of Transportation (Non-Medical): No Physical Activity: Not on file Stress: Not on file Social Connections: Moderately Integrated (09/13/2023) Received from [facility] Social Connection and Isolation Panel [NHANES] Frequency of Communication with Friends and Family: More than three times a week Frequency of Social Gatherings with Friends and Family: More than three times a week Attends Anglican Services: More than 4 times per year Active Member of Clubs or Organizations: Yes Attends Club or Organization Meetings: 1 to 4 times per year Marital Status: Never Intimate Partner Violence: Not At Risk (08/04/2024) Received from [facility] Humiliation, Afraid, Rape, and Kick questionnaire Fear of Current or Ex-Partner: No Emotionally Abused: No Physically Abused: No Sexually Abused: No Housing Stability: Low Risk (08/04/2024) Received from [facility] Housing Stability Vital Sign Unable to Pay for Housing in the Last Year: No Number of Times Moved in the Last Year: 0 Homeless in the Last Year: No Family History: Family History Problem Relation Age of Onset Rheum Arthritis Mother Asthma Mother Other Maternal Grandmother Lupus Breast Cancer Other mat great aunt Diabetes Other extended family Medical Decision Making: I have independently reviewed/ordered the following labs: CBC with Differential: Recent Labs 08/22/24 0800 08/23/24 0706 WBC 8.7 7.6 HGB 9.2* 9.6* HCT 28.7* 28.9* PLT 375 435 LYMPHOPCT 13* 18* MONOPCT 13* 12 EOSPCT 2 2 BMP: Recent Labs 08/21/24194608/22/24 0800 NA 134* 132* K 4.3 4.4 CL 95* 97* CO2 29 24 BUN 11 9 CREATININE 0.6* 0.5* Hepatic Function Panel: Recent Labs 08/21/24194608/22/24 0800 BILITOT 0.4 0.4 ALKPHOS 138* 120 ALT 6* <5* AST 15 10 No results for input(s): RPR in the last 72 hours. No results for input(s): HIV in the last 72 hours. No results for input(s): BC in the last 72 hours. Lab Results Component Value Date/Time CREATININE 0.5 08/22/2024 08:00 AM GLUCOSE 287 08/22/2024 08:00 AM Detailed results: Thank you for allowing us to participate in the care of this patient.Please call with questions. This note is created with the assistance of a speech recognition program. While intending to generate adocument that actually reflects the content of the visit, the document can still have some errors including those of syntax and sound a like substitutions which may escape proof reading. It such instances, actual meaningcan be extrapolated by contextual diversion. Ronnie Torres MD Office: [facility] / office [phone] * Mook James DO - 08/23/2024 2:40 PM EST Images from the original note were not included. [facility] Office: [phone] Lito Walls DO, Mook James DO, Ej Cunningham DO, Aniceto Herrera DO, Joss Fox MD, Antonella East MD, Elke Vasquez MD, Josselin Topete MD, Cleve Paul MD, Landen Barrientos MD, Rex Yoon MD, Rosalina Morales DO, Efraín Chavez MD, Gama Rico MD, Jorge Walls DO, Magaly Olivia MD, Toño Mcconnell DO, Maggy Vasquez MD, Rashmi Del Angel MD, Enriqueta Vasquez MD, Tierra Banuelos MD, Veto Walker MD, Jose David Bravo MD, Caridad Samuels MD, Paz Peterson MD, Tong Champion MD, Garcia Dyer MD, Rob Edwards DO, Kalyan Freeman MD, Rosalina Solis MD, Larry Solis MD, Rosie Quevedo CNP, Rachel King CNP, Rob Martinez CNP, Cristy Galindo DNP, Kika Turner, [facility], Alyson Thomas, [facility], Xenia Cates, [facility], Rachna Yap, DEALERSHIP MANAGER, Iman Ortiz PA-C, Josiane Vail CNP, Heydi Whaley, [facility], Adrianna Weinstein, [facility], Shannon Cantu, [facility], Morena Randle CNP,Jovita Laird, NAS, Megha Wesley CNP, Dina Au, UMU, Annie Lewis, [facility] IN-PATIENT SERVICE [facility] Progress Note 08/23/2024 2:50 PM Name: Isaias Estrella Acct: [id number] Room: [address] [place] [address] IP Day: 2 Admit Date: 08/21/2024 7:25 PM PCP: No primary care provider on file. Code Status: Full Code Subjective: C/C: Abdominal pain Interval History Status: Pain has been well-controlled Patient has been using Dilaudid about every hour Status post drain replacement Drain still collecting bloody fluid Data Base Updates: Afebrile XKR886.0 High Sed Rate, Ocupuauia18 High [id number] High WBC7.6k/uL RBC3.05 Low m/uL Hemoglobin9.6 Low Drainage still growing staph Specimen Description.ABSCESS PSOAS Direct ExamFEW NEUTROPHILS FEW GRAM POSITIVE COCCI IN CLUSTERS Abnormal CultureSTAPHYLOCOCCUS AUREUS MODERATE GROWTH Abnormal Brief History: As documented in the medical record: Isaias Estrella is a 24 y.o. Non- / non male pmh diabetes type 1 , and tobacco dependence who presented to [facility] with complaints of pain with ambulation secondary to right groin pain which started around August 01 and got progressively worse . At the [facility] heunderwent a CAT scan 08/15/2024 which demonstrated 4 to 5 mm pulmonary nodule left lung base and promi nent collections within the right iliac muscle differentials could be hematoma versus abscess . Dueto these findings he was sent to [facility] for IR evaluation and placement of a Pigtail catheter and GEORGES drain 08/15/2024. Patient initially reported some initial relief from pressure and discomfort in the right groin but that dissipated . Repeat CT abd pelvis 08/20/2024 demonstrated abscess was grossly unchanged from prior CT measuring 7.1 x 6.7 cm . Patient evaluated by infectious diseaseand placed on cefazolin due to sensitivities obtained from abscess drainage. Despite continued IV antibiotic and current drain in place, patient has not made significant improvements. Dr. Crisostomo from general surgery was contacted by [facility] ([facility] ) and agreed to consult. Therefore, patient transferred to surgical evaluation. 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 Patient reports initial symptom relief-which has now dissipated, repeat CAT scan 08/20/2024 demonstrated grossly unchanged when compared to prior CT of the pelvis study Will reculture, trend CBC, sed rate and CRP 2. Pain secondary to #1-will try multimodal pain management. Will increased gabapentin to 100mg tid 3. Ambulatory dysfunction secondary to #1-fall precaution 4. Diabetes type 1-resume daily basal insulin along with sliding scale coverage Was requiring 55units of lantus (h/o taking 15units at home) Will order 55 units in divided doses 5. Murmur- obtain 2 d echo for further evaluation 6. Bilateral pulmonary nodules-6 mm left lower lobe- 7. Dvt ppx-Lovenox Database has included: Scrotal ultrasound Unremarkable scrotal ultrasound. Normal testicular spectral doppler evaluation. Signed by Sylvie Yin MD Echocardiogram: Left Ventricle: Normal left ventricular systolic function with a visually estimated EF of 55 - 60%. EF 3D is 54%. Left ventricle size is normal. Normal wall thickness. Normal wall motion. Normal diastolic function. Right Ventricle: Normal systolic function. TAPSE is normal. TAPSE is 3.1 cm. RV Peak S' is 17.1 cm/s. TDI systolic excursion is normal. Aortic Valve: Trileaflet valve. No regurgitation. No stenosis. Mitral Valve: Trace regurgitation. Tricuspid Valve: Mild regurgitation. Normal RVSP. The estimated RVSP is 22 mmHg. Pericardium: Trivial pericardial effusion present. Image quality is good. 08/22: FINDINGS: Ultrasound shows a very complex echogenic an echo poor collection in the region of the right iliacus; existing catheter was mostly dislodged. Wire placement was demonstrated on sonography and fluoroscopy along the anterior aspect of the collection, but within it; final tube position is satisfactory. Patient tolerated procedure well. Impression: Successful placement of a 10 Greek drainage catheter in a suspected right iliacus abscess, as above. Further imaging assessment and possible up sizing may be require Past Medical History: has a past medical history of DM (diabetes mellitus) (HCC), Encopresis(307.7), Fracture of clavicle, and Vision abnormalities. Social History: reports that he has been smoking cigarettes. He has a 6 pack- year smoking history. He has never used smokeless tobacco. He reports current alcohol use. He reports that he does not usedrugs. Family History: Family History Problem Relation Age of Onset Rheum Arthritis Mother Asthma Mother Other Maternal Grandmother Lupus Breast Cancer Other mat great aunt Diabetes Other extended family Review of Systems: Review of Systems Constitutional: Positive for diaphoresis (Patient reporting sweats). Negative for chills and fever. Respiratory: Negative for cough and shortness of breath. Cardiovascular: Negative for chest pain and palpitations. Gastrointestinal: Positive for abdominal pain (Abdominal pain radiating to the right testicle persists). Negative for nausea and vomiting. Genitourinary: Negative for flank pain and hematuria. Physical Examination: Vitals BP 102/61 Pulse 82 Temp 97.9 F (36.6 C) (Oral) Resp 14 Ht 1.829 m (6') Wt 74.6 kg (164 lb7.4 oz) SpO2 98% BMI 22.31 kg/m Temp (24hrs), Av F (36.7 C), Min:97.6 F (36.4 C), Max:98.6 F (37 C) Recent Labs 08/22/24 1704 08/22/24 2049 08/23/24 0650 08/23/24 1144 POCGLU 116* 395* 305* 286* Physical Exam Vitals reviewed. Constitutional: General: He is not in acute distress. Appearance: He is not diaphoretic. HENT: Head: Normocephalic. Nose: Nose normal. Eyes: General: No scleral icterus. Conjunctiva/sclera: Conjunctivae normal. Neck: Trachea: No tracheal deviation. Cardiovascular: Rate and Rhythm: Normal rate and regular rhythm. Pulmonary: Effort: Pulmonary effort is normal. No respiratory distress. Breath sounds: Normal breath sounds. No wheezing or rales. Chest: Chest wall: No tenderness. Abdominal: General: There is no distension. Palpations: Abdomen is soft. Tenderness: There is no abdominal tenderness. There is no guarding. Comments: Drain site stable Drain collecting bloody fluid Musculoskeletal: General: No tenderness. Cervical back: Neck supple. Skin: General: Skin is warm and dry. Neurological: Mental Status: He is alert. Medications: Allergies: No Known Allergies Current Meds: Scheduled Meds: insulin glargine 34 Units SubCUTAneous Daily And insulin glargine 28 Units SubCUTAneous Nightly insulin lispro 0-8 Units SubCUTAneous 4x Daily AC & HS sodium chloride flush 5-40 mL IntraVENous 2 times per day ceFAZolin (ANCEF) 1,000 mg in sterile water 10 mL IV syringe 1,000 mg IntraVENous Q8H gabapentin 100 mg Oral TID pantoprazole 40 mg Oral QAM AC naproxen 250 mg Oral TID WC enoxaparin 40 mg SubCUTAneous Daily Continuous Infusions: HYDROmorphone sodium chloride dextrose PRN Meds: naloxone 0.4 mg in 10 mL sodium chloride syringe, polyethylene glycol, oxyCODONE, oxyCODONE, acetaminophen, sodium chloride flush, sodium chloride, glucose, dextrose bolus OR dextrose bolus, glucagon (rDNA), dextrose, acetaminophen Data: I/O (24Hr): Intake/Output Summary (Last 24 hours) at 08/23/2024 1450 Last data filed at 08/23/2024 0503 Gross per 24 hour Intake -- Output 60 ml Net -60 ml Labs: Hematology: Recent Labs 08/21/24221708/22/24 0808/23/24 0706 WBC -- 8.7 7.6 RBC -- 2.98* 3.05* HGB -- 9.2* 9.6* HCT -- 28.7* 28.9* MCV -- 96.3 94.8 MCH -- 30.9 31.5 MCHC -- 32.1 33.2 RDW -- 11.3* 11.6* PLT -- 375 435 MPV -- 8.6 8.7 SEDRATE 65* -- 53* CRP 237.0* -- 206.0* INR 1.2 -- -- Chemistry: Recent Labs 08/21/24194608/22/24 0808/22/24202708/23/24 0150 08/23/24 0706 NA 134* 132* -- -- -- K 4.3 4.4 -- -- -- CL 95* 97* -- -- -- CO2 29 24 -- -- -- GLUCOSE 166* 287* -- -- -- BUN 11 9 -- -- -- CREATININE 0.6* 0.5* -- -- -- ANIONGAP 10 11 -- -- -- LABGLOM >90 >90 -- -- -- CALCIUM 9.6 9.3 -- -- -- LACTACIDWB -- -- 1.0 1.0 0.9 Recent Labs 08/21/24 1947 08/21/24204708/22/24 0800 08/22/24 1130 08/22/24 1333 08/22/24 1704 08/22/24 2049 08/23/24 0650 08/23/24 1144 AST 15 -- 10 -- -- -- -- -- -- ALT 6* -- <5* -- -- -- -- -- -- ALKPHOS 138* -- 120 -- -- -- -- -- -- BILITOT 0.4 -- 0.4 -- -- -- -- -- -- POCGLU -- < > -- 168* 160* 116* 395* 305* 286* < > = values in this interval not displayed. ABG:No results found for: POCPH , PHART , PH , POCPCO2 , XFJ2ETS , PCO2 , POCPO2 , PO2ART , PO2 , POCHCO3 , BID3NDI , HCO3 , NBEA , PBEA , BEART , BE , THGBART , THB , QJZ6GXN , ALDC0MAO , N1CGUBJM , O2SAT , FIO2 Lab Results Component Value Date/Time SPECIAL L ARM 1ML 08/21/2024 07:47 PM SPECIAL R ARM 1ML 08/21/2024 07:47 PM Lab Results Component Value Date/Time CULTURE STAPHYLOCOCCUS AUREUS MODERATE GROWTH (A) 08/22/2024 05:12 PM Radiology: No results found. 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] 08/21/2024 Tobacco dependence [F17.200] 08/21/2024 Plan: Pain control Trial of IGNITION EXPERT Surgical eval IR - s/p drain replacement Antibiotics per Infectious Disease service Ancef for MSSA Glycemic contol - Monitor and control blood sugars Monitor H&H Correct electrolyte abnormalities Pulmonary nodule surveillance Tobacco abstinence DVT prophylaxis Called [facility]: 08/15 culture revealed Staph aureus (not MRSA) sensitive to cephalosporins IP CONSULT TO GENERAL SURGERY IP CONSULT TO INFECTIOUS DISEASES Mook James DO 08/23/2024 2:50 PM * Mook James DO - 08/22/2024 1:37 PM EST Images from the original note were not included. [facility] Office: [phone] Lito Walls DO, Mook James DO, Ej Cunningham DO, Aniceto Herrera DO, Joss Fox MD, Antonella East MD, Elke Vasquez MD, Josselin Topete MD, Cleve Paul MD, Landen Barrientos MD, Rex Yoon MD, Rosalina Morales DO, Efraín Chavez MD, Gama Rico MD, Jorge Walls DO, Magaly Olivia MD, Toño Mcconnell DO, Maggy Vasquez MD, Rashmi Del Angel MD, Enriqueta Vasquez MD, Tierra Banuelos MD, Veto Walker MD, Jose David Bravo MD, Caridad Samuels MD, Paz Peterson MD, Tong Champion MD, Garcia Dyer MD, Rob Edwards DO, Kalyan Freeman MD, Rosalina Solis MD, Larry Solis MD, Rosie Quevedo, DEALERSHIP MANAGER, Rachel King, DEALERSHIP MANAGER, Rob Martinez, DEALERSHIP MANAGER, Cristy Galindo, HAN, Kika Turner, DEALERSHIP MANAGER, Alyson Thomas, DEALERSHIP MANAGER, Xenia Cates CNP, Rachna Yap, DEALERSHIP MANAGER, Iman Ortiz PA-C, Josiane Vail, DEALERSHIP MANAGER, Heydi Whaley, DEALERSHIP MANAGER, Adrianna Weinstein, DEALERSHIP MANAGER, Shannon Cantu, DEALERSHIP MANAGER, Morena Randle, DEALERSHIP MANAGER,Jovita Laird, [facility], Mgeha Wesley CNP, Dina Au, DEALERSHIP MANAGER, Annie Lewis CNP IN-PATIENT SERVICE [facility] Progress Note 08/22/2024 2:13 PM Name: Isaias Estrella Acct: [id number] Room: 0241/0241-01 Day: 1 Admit Date: 08/21/2024 7:25 PM PCP: No primary care provider on file. Code Status: Full Code Subjective: C/C: Abdominal pain Interval History Status: Abdominal pain referring to the testicle persists Patient rating the pain 10/10 at times No nausea or vomiting Data Base Updates: Afebrile Patient has had approximately 20 mL of bloody drainage collected No fever, chills, sweats WBC8.7k/uL RBC2.98 Low m/uL Hemoglobin9.2 Low [id number] Low mmol/L Potassium4.4mmol/L Baiwvmfh93 Low mmol/L WA086wxed/L Anion Ril27vqgy/L Qhemspq962 High mg/dL BUN9mg/dL Creatinine0.5 Low Brief History: As documented in the medical record: Isaias Estrella is a 24 y.o. Non- / non male pmh diabetes type 1 , and tobacco dependence who [facility] to [facility] with complaints of pain with ambulation secondary to right groin pain which started around August 01 and got progressively worse . At the [facility] heunderwent a CAT scan 08/15/2024 which demonstrated 4 to 5 mm pulmonary nodule left lung base and promi nent collections within the right iliac muscle differentials could be hematoma versus abscess . Dueto these findings he was sent to [facility] for IR evaluation and placement of a Pigtail catheter and GEORGES drain 08/15/2024. Patient initially reported some initial relief from pressure and discomfort in the right groin but that dissipated . Repeat CT abd pelvis 08/20/2024 demonstrated abscess was grossly unchanged from prior CT measuring 7.1 x 6.7 cm . Patient evaluated by infectious diseaseand placed on cefazolin due to sensitivities obtained from abscess drainage. Despite continued IV antibiotic and current drain in place, patient has not made significant improvements. Dr. Crisostomo from general surgery was contacted by Access (Buster [email or web address]) and agreed to consult. Therefore, patient transferred to surgical evaluation. 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 Patient reports initial symptom relief-which has now dissipated, repeat CAT scan 08/20/2024 demonstrated grossly unchanged when compared to prior CT of the pelvis study Will reculture, trend CBC, sed rate and CRP 2. Pain secondary to #1-will try multimodal pain management. Will increased gabapentin to 100mg tid 3. Ambulatory dysfunction secondary to #1-fall precaution 4. Diabetes type 1-resume daily basal insulin along with sliding scale coverage Was requiring 55units of lantus (h/o taking 15units at home) Will order 55 units in divided doses 5. Murmur- obtain 2 d echo for further evaluation 6. Bilateral pulmonary nodules-6 mm left lower lobe- 7. Dvt ppx-Lovenox Database has included: Scrotal ultrasound Unremarkable scrotal ultrasound. Normal testicular spectral doppler evaluation. Signed by Sylvie Yin MD Echocardiogram: Left Ventricle: Normal left ventricular systolic function with a visually estimated EF of 55 - 60%. EF 3D is 54%. Left ventricle size is normal. Normal wall thickness. Normal wall motion. Normal diastolic function. Right Ventricle: Normal systolic function. TAPSE is normal. TAPSE is 3.1 cm. RV Peak S' is 17.1 cm/s. TDI systolic excursion is normal. Aortic Valve: Trileaflet valve. No regurgitation. No stenosis. Mitral Valve: Trace regurgitation. Tricuspid Valve: Mild regurgitation. Normal RVSP. The estimated RVSP is 22 mmHg. Pericardium: Trivial pericardial effusion present. Image quality is good. Past Medical History: has a past medical history of DM (diabetes mellitus) (HCC), Encopresis(307.7), Fracture of clavicle, and Vision abnormalities. Social History: reports that he has been smoking cigarettes. He has a 6 pack- year smoking history. He has never used smokeless tobacco. He reports current alcohol use. He reports that he does not usedrugs. Family History: Family History Problem Relation Age of Onset Rheum Arthritis Mother Asthma Mother Other Maternal Grandmother Lupus Breast Cancer Other mat great aunt Diabetes Other extended family Review of Systems: Review of Systems Respiratory: Negative for cough and shortness of breath. Cardiovascular: Negative for chest pain and palpitations. Gastrointestinal: Positive for abdominal pain (Abdominal pain radiating to the right testicle persists). Negative for nausea and vomiting. Genitourinary: Negative for flank pain and hematuria. Physical Examination: Vitals BP (!) 98/57 Pulse 82 Temp 99 F (37.2 C) (Oral) Resp 18 Ht 1.829 m (6') Wt 74.6 kg (164 lb 7.4 oz) SpO2 98% BMI 22.31 kg/m Temp (24hrs), Av.2 F (36.8 C), Min:97.7 F (36.5 C), Max:99 F (37.2 C) Recent Labs 08/21/24 2048 08/22/24 0701 08/22/24 1130 08/22/24 1333 POCGLU 145* 252* 168* 160* Physical Exam Vitals reviewed. Constitutional: General: He is not in acute distress. Appearance: He is not diaphoretic. HENT: Head: Normocephalic. Nose: Nose normal. Eyes: General: No scleral icterus. Conjunctiva/sclera: Conjunctivae normal. Neck: Trachea: No tracheal deviation. Cardiovascular: Rate and Rhythm: Normal rate and regular rhythm. Pulmonary: Effort: Pulmonary effort is normal. No respiratory distress. Breath sounds: Normal breath sounds. No wheezing or rales. Chest: Chest wall: No tenderness. Abdominal: General: There is no distension. Palpations: Abdomen is soft. Tenderness: There is no abdominal tenderness. There is no guarding. Comments: Drain has collected approximately 20 mL of hemorrhagic fluid Musculoskeletal: General: No tenderness. Cervical back: Neck supple. Skin: General: Skin is warm and dry. Neurological: Mental Status: He is alert. Medications: Allergies: No Known Allergies Current Meds: Scheduled Meds: insulin lispro 0-8 Units SubCUTAneous 4x Daily AC & HS sodium chloride flush 5-40 mL IntraVENous 2 times per day ceFAZolin (ANCEF) 1,000 mg in sterile water 10 mL IV syringe 1,000 mg IntraVENous Q8H gabapentin 100 mg Oral TID pantoprazole 40 mg Oral QAM AC naproxen 250 mg Oral TID WC enoxaparin 40 mg SubCUTAneous Daily insulin glargine 30 Units SubCUTAneous Daily And insulin glargine 25 Units SubCUTAneous Nightly Continuous Infusions: sodium chloride dextrose PRN Meds: oxyCODONE, oxyCODONE, sodium chloride flush, sodium chloride, glucose, dextrose bolus OR dextrose bolus, glucagon (rDNA), dextrose, HYDROmorphone, acetaminophen Data: I/O (24Hr): Intake/Output Summary (Last 24 hours) at 08/22/2024 1413 Last data filed at 08/22/2024 0658 Gross per 24 hour Intake -- Output 20 ml Net -20 ml Labs: Hematology: Recent Labs 08/21/24221708/22/24 0800 WBC -- 8.7 RBC -- 2.98* HGB -- 9.2* HCT -- 28.7* MCV -- 96.3 MCH -- 30.9 MCHC -- 32.1 RDW -- 11.3* PLT -- 375 MPV -- 8.6 SEDRATE 65* -- CRP 237.0* -- INR 1.2 -- Chemistry: Recent Labs 08/21/24194608/22/24 0800 NA 134* 132* K 4.3 4.4 CL 95* 97* CO2 29 24 GLUCOSE 166* 287* BUN 11 9 CREATININE 0.6* 0.5* ANIONGAP 10 11 LABGLOM >90 >90 CALCIUM 9.6 9.3 Recent Labs 08/21/24194608/21/24 2048 08/22/24 0701 08/22/24 0800 08/22/24 1130 08/22/24 1333 AST 15 -- -- 10 -- -- ALT 6* -- -- <5* -- -- ALKPHOS 138* -- -- 120 -- -- BILITOT 0.4 -- -- 0.4 -- -- POCGLU -- 145* 252* -- 168* 160* ABG:No results found for: POCPH , PHART , PH , POCPCO2 , CJY9IGQ , PCO2 , POCPO2 , PO2ART , PO2 , POCHCO3 , JKN8HIO , HCO3 , NBEA , PBEA , BEART , BE , THGBART , THB , NTQ8OPA , IVAR8IST , O1XVNBRJ , O2SAT , FIO2 Lab Results Component Value Date/Time SPECIAL L ARM 1ML 08/21/2024 07:47 PM SPECIAL R ARM 1ML 08/21/2024 07:47 PM Lab Results Component Value Date/Time CULTURE NO GROWTH 12 HOURS 08/21/2024 07:47 PM CULTURE NO GROWTH 12 HOURS 08/21/2024 07:47 PM Radiology: No results found. 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 PROGRESS NOTE PATIENT NAME: Isaias Estrella DATE: 08/22/2024 PRIMARY CARE PHYSICIAN: No primary care provider on file. HD: # 1 ASSESSMENT Patient Active Problem List Diagnosis Back pain Hematuria DM type 1 (diabetes mellitus, type 1) (HCC) Abscess Ambulatory dysfunction Iliopsoas abscess (HCC) Tobacco dependence 24yo Type 1 diabetic with iliopsoas abscess with recent drain placement at OSH presents with decreased drain OP and increased pain MEDICAL DECISION MAKING AND PLAN IR to place new drain No acute surgical intervention Recommend tight glucose control Abx per Id General surgery to sign off Chief Complaint: pain in abdomen SUBJECTIVE Isaias Estrella is resting in bed. He complains of pain in right hip radiation from hip through abdomen and into the right testicle. He says pain became worse with flushing of the drain overnight. There is no visible erythema or edema to the skin. OBJECTIVE VITALS: Temp: Temp: 98.4 F (36.9 C)Temp Av F (36.7 C) Min: 97.7 F (36.5 C) Max: 98.4 F (36.9 C) BP Systolic (24hrs), Av , Min:108 , Max:120 Diastolic (24hrs), Av, Min:69, Max:81 Pulse Pulse Av Min: 76 Max: 96 Resp Resp Av.8 Min: 14 Max: 18 Pulse ox SpO2 Av.7 % Min: 96 % Max: 100 % Physical Exam Vitals reviewed. Constitutional: General: He is not in acute distress. Appearance: He is not toxic-appearing. HENT: Head: Normocephalic and atraumatic. Right Ear: External ear normal. Left Ear: External ear normal. Nose: Nose normal. Mouth/Throat: Mouth: Mucous membranes are moist. Eyes: Extraocular Movements: Extraocular movements intact. Cardiovascular: Rate and Rhythm: Normal rate and regular rhythm. Pulmonary: Effort: Pulmonary effort is normal. No respiratory distress. Abdominal: General: There is no distension. Palpations: Abdomen is soft. Tenderness: There is abdominal tenderness. Comments: Tenderness to palpation over the right abdomen and flank. Not peritoneal. Musculoskeletal: General: No tenderness or signs of injury. Skin: General: Skin is warm and dry. Capillary Refill: Capillary refill takes less than 2 seconds. Neurological: General: No focal deficit present. Mental Status: He is alert and oriented to person, place, and time. Psychiatric: Mood and Affect: Mood normal. Behavior: Behavior normal. I/O last 3 completed shifts: In: - Out: 20 [Drains:20] Drain/tube output: In: - Out: 20 [Drains:20] LAB: CBC: Recent Labs 08/22/24 0800 WBC 8.7 HGB 9.2* HCT 28.7* MCV 96.3 PLT 375 BMP: Recent Labs 08/21/24 1947 08/22/24 0800 NA 134* 132* K 4.3 4.4 CL 95* 97* CO2 29 24 BUN 11 9 CREATININE 0.6* 0.5* GLUCOSE 166* 287* COAGS: Recent Labs 08/21/24 2218 INR 1.2 RADIOLOGY: OSH imaging reviewed SOFIA LIM CNP 08/22/24, 10:27 AM Attending Note I have reviewed the above [facility] note(s). I have seen and examined the patient. I have discussed the findings, established the care plan and recommendations with the Advanced PracticeProvider. Chief Complaint: abd pain Exam: stable Plan: Await IR evaluation Dylan Smith MD 08/22/2024 10:38 AM documented in this encounterBon [facility]02[facility] NotePROCEDURE: IR ABSCESS DRAIN PERC 08/22/2024 HISTORY: ORDERING SYSTEM PROVIDED HISTORY: Right Iliacus abscess TECHNOLOGIST PROVIDED HISTORY: Ilio-psoas abscess CONTRAST: None used SEDATION: Fentanyl 100 mcg IV for discomfort. Medications were provided and recorded by Radiology nurses. FLUOROSCOPY DOSE AND TYPE: Fluoroscopy time-0.3 minutes Radiation Exposure Index: DAP cGy*cm2, 30 DESCRIPTION OF PROCEDURE: Informed consent was obtained after a detailed explanation of the procedure including risks, benefits, and alternatives. [place] protocol was observed. Sterile gowns, masks, hats and gloves utilized for maximal sterile barrier. Ultrasound fluoroscopic images of the right iliac region were obtained; existing catheter was cut, and a 0.035 Bentson guidewire was introduced. A 10 Greek drainage catheter was then inserted. Approximately 75 cc of bloody purulent appearing fluid was aspirated. A sample was provided for further analysis. The tube was sutured to the skin and attached to GEORGES suction bulb. FINDINGS: Ultrasound shows a very complex echogenic an echo poor collection in the region of the right iliacus; existing catheter was mostly dislodged. Wire placement was demonstrated on sonography and fluoroscopy along the anterior aspect of the collection, but within it; final tube position is satisfactory. Patient tolerated procedure well. [facility] RIS [id number] NotePROCEDURE: IR ABSCESS DRAIN PERC 08/22/2024 HISTORY: ORDERING SYSTEM PROVIDED HISTORY: Right Iliacus abscess TECHNOLOGIST PROVIDED HISTORY: Ilio-psoas abscess CONTRAST: None used SEDATION: Fentanyl 100 mcg IV for discomfort. Medications were provided and recorded by Radiology nurses. FLUOROSCOPY DOSE AND TYPE: Fluoroscopy time-0.3 minutes Radiation Exposure Index: DAP cGy*cm2, 30 DESCRIPTION OF PROCEDURE: Informed consent was obtained after a detailed explanation of the procedure including risks, benefits, and alternatives. [place] protocol was observed. Sterile gowns, masks, hats and gloves utilized for maximal sterile barrier. Ultrasound fluoroscopic images of the right iliac region were obtained; existing catheter was cut, and a 0.035 Bentson guidewire was introduced. A 10 Greek drainage catheter was then inserted. Approximately 75 cc of bloody purulent appearing fluid was aspirated. A sample was provided for further analysis. The tube was sutured to the skin and attached to GEORGES suction bulb. FINDINGS: Ultrasound shows a very complex echogenic an echo poor collection in the region of the right iliacus; existing catheter was mostly dislodged. Wire placement was demonstrated on sonography and fluoroscopy along the anterior aspect of the collection, but within it; final tube position is satisfactory. Patient tolerated procedure well. IMPRESSION: Successful placement of a 10 Greek drainage catheter in a suspected right iliacus abscess, as above. Further imaging assessment and possible up sizing may be required. Interpreted by: Juan Grant MD Signed by: Juan Grant MD 08/22/24 [facility] Progress note Author Kanu Fry [facility] Note Date/Time August 21, 2024 1:16pm [facility] [address] [place] [address] Hospitalist Progress Note Signed Patient: Isaias Estrella MR#: [id number] : 2000 Acct:[id number] Age/Sex: 24 / M Adm Date: 5 Loc: 3T Room: [address] [place] [address] Type: ADM IN Attending Dr: Kanu Fry MD Copies to: ~ Date of Service: 08/21/2024 Subjective Subjective Narrative: No significant change in clinical condition. Continues to have significant right lower quadrant pain. Minimal drainage from the tube.No fever last night. Heart is regular. Odkpz-qy-tixu ultrasound is unremarkable. Lungs are clear Abdomen tender in the right lower quadrant with positive rebound no rigidity. Exam Physical Exam Vital Signs: Temp Pulse Resp BP Pulse Ox O2 Del Method 98.6 F 91 14 119/76 97 Room Air 08/21/24 08:00 08/21/24 08:00 08/21/24 08:00 08/21/24 08:00 08/21/24 08:00 08/21/24 08:00 Objective Lab Results 08/21/24 10:08 08/20/24 07:20 Microbiology Results Microbiology 08/15/24 15:06 Blood - Right Antecubital Blood Culture - Final NO GROWTH 5 DAYS 08/15/24 15:17 Blood - Right Forearm Blood Culture - Final NO GROWTH 5 DAYS Meds Allergies and Active Meds Allergies No Known Allergies Allergy (Verified 08/08/24 19:47) Active Meds: Active Medications Generic Name Dose Route Start Last Admin Trade Name Freq PRN Reason Stop Dose Admin Acetaminophen 1,000 mg 08/14/24 22:18 08/20/24 22:47 Acetaminophen 500 Mg Tablet PO 08/14/25 22:17 1,000 mg Q6HR PRN Administration Pain Scale 1 - 3 or fever Cefazolin Sodium 2 gm 08/18/24 00:00 08/21/24 08:48 Cefazolin 2 Gm/11 Ml Syringe IV-PUSH 2 gm Q8H SANDI Administration Dextrose 0 gm 08/14/24 22:18 Dextrose 50% In Water 25 Gm/50 Ml Syringe IV-PUSH 08/14/25 22:17 PRN PRN Hypoglycemia Glucose 0 gm 08/14/24 22:18 Dextrose 40% Gel 15 Gm Tube PO 08/14/25 22:17 PRN PRN Hypoglycemia Home Med 1 each 08/17/24 06:41 Home Meds Kept In Pharmacy MISCELLANE 08/17/25 06:40 PRN PRN zz.Pharmacy Note Hydromorphone HCl 1 mg 08/20/24 03:47 08/21/24 13:02 Hydromorphone 1 Mg/Ml Syringe IV-PUSH 1 mg Q1H PRN Administration Pain Scale 7 - 10 Insulin Aspart 0 units 08/15/24 08:00 08/21/24 13:04 Insulin Aspart 300 Units/3 Ml SUBCUT 08/15/25 07:59 3 units TID.WM.HS SANDI Administration Protocol Insulin Aspart 0 units 08/15/24 17:00 08/21/24 13:05 Insulin Aspart 300 Units/3 Ml SUBCUT 08/15/25 16:59 4 units TID.WITH.MEALS SANDI Administration Protocol Insulin Glargine 55 units 08/20/24 09:00 08/21/24 08:53 Insulin Glargine 300 Units/3 Ml Insuln.Pen SUBCUT 08/20/25 08:59 55 units DAILY SANDI Administration Naproxen 250 mg 08/16/24 12:00 08/21/24 13:02 Naproxen 250 Mg Tablet PO 08/16/25 11:59 250 mg TID.WITH.MEALS SANDI Administration Ondansetron HCl 4 mg 08/14/24 22:18 Ondansetron 4 Mg/2 Ml Vial IV-PUSH 08/14/25 22:17 Q6H PRN Nausea And Vomiting Oxycodone HCl 10 mg 08/19/24 10:08 08/21/24 02:52 Oxycodone Ir 5 Mg Tablet PO 10 mg Q4HR PRN Administration Pain Scale 4 - 7 Pantoprazole Sodium 40 mg 08/15/24 07:30 08/21/24 08:48 Pantoprazole 40 Mg Tablet.Dr PO 08/15/25 07:29 40 mg DAILY.AC.BKFAST SANDI Administration Polyethylene Glycol 17 gm 08/19/24 12:36 Polyethylene Glycol 3350 17 Gm Powd.Pack PO 08/19/25 12:35 DAILY PRN Constipation Senna/Docusate Sodium 2 tab 08/19/24 12:36 Sennosides/Docusate 8.6-50mg 1 Tab Tablet PO 08/19/25 20:59 BID PRN constipation Sodium Chloride 0 ml 08/15/24 06:00 08/21/24 06:38 Sodium Chloride 0.9 % 10 Ml Syringe IV-PUSH 08/15/25 05:59 10 ml QSHIFT SANDI Administration Sodium Chloride 10 ml 08/15/24 11:04 08/21/24 10:23 Sodium Chloride 0.9 % 10 Ml Syringe IV-PUSH 08/15/25 11:03 10 ml PRN PRN Administration Flush Sodium Chloride 0 ml 08/17/24 12:53 08/21/24 06:54 Sodium Chloride 0.9 % 10 Ml Syringe IV-PUSH 08/17/25 12:52 10 ml PRN PRN Administration Flush A&P - Hospitalist Assessment/Plan (1) Abscess of right iliac fossa: (2) Type 1 diabetes mellitus: Plan 1. Right iliopsoas muscle abscess, probably an infected hematoma Continue antimicrobial therapy with IV cefazolin based on cultures. Pending transfer to [facility] in [place]. #2. Diabetes mellitus type 2.Blood sugar better controlled today. Continue to monitor and make daily adjustments as necessary. DVT prophylaxis SCDs Documented By: Kanu Fry MD 08/21/241314 Signed By: <Electronically signed by Kanu Fry MD> 08/21/24 [facility] Work Phone: [phone] 225-432602-13-2025 Progress note Author Jorge England [facility] Note Date/Time August 21, 2024 11:22am [facility] [address] [place] [address] Infect. Disease Progress Note Signed Patient: Isaias Estrella MR#: [id number] : 2000 Acct:[id number] Age/Sex: 24 / M Adm Date: 5 Loc: Room: [address] [place] [address] Type: ADM IN Attending Dr: Kanu Fry MD Copies to: ~ Date of Service: 08/21/2024 Subjective Interval history: Patient states his pain is 10 out of 10. Transfer to [place] initiated yesterday. Awaiting bed. Vital signs remain stable. Exam Physical Exam Vital Signs: Vital Signs Temp Pulse Resp BP Pulse Ox O2 Del Method 08/21/24 08:00 98.6 F 91 14 119/76 97 Room Air 08/21/24 06:20 98.8 F 88 14 108/62 98 Room Air 08/21/24 04:57 98.0 F 88 14 106/60 98 Room Air 08/21/24 02:54 102/66 08/21/24 01:16 90 16 116/66 99 Room Air 08/21/24 00:10 97.8 F 89 16 118/75 99 Room Air 08/20/24 20:09 Room Air 08/20/24 20:01 98.2 F 78 16 106/72 97 Room Air 08/20/24 15:28 98.1 F 94 16 114/68 98 Room Air 08/20/24 12:31 99/55 L 08/20/24 11:27 96/56 L 08/20/24 11:20 Room Air 08/20/24 11:17 98.1 F 86 16 95/55 L 98 Room Air Intake and Output 08/20/24 08/21/24 08/21/24 23:59 07:59 15:59 Intake Total 1300 / 2700 1500 / 1500 Output Total 1657 / 3677 2407 / 2407 Balance -357 / -977 -907 / -907 Intake: Oral 1300 / 2700 1500 / 1500 Output: Urine 1650 / 3650 2400 / 2400 Wound Drainage Site #1 Other: # Bowel Movements 0 0 Weight 76.9 kg Date of Last Bowel Movement 08/19/24 Patient Weight 08/21/24 23:59 Weight 76.9 kg Const General: cooperative and comfortable Nutritional Appearance: average body habitus HEENT Head: normal to inspection Mouth: oral mucosae normal Teeth and gingiva: dentition normal Eyes General: appearance normal, both eyes and all related structures Neck Neck: normal visual inspection Chest Chest palpation & inspection: normal inspection of the chest Resp Effort & Inspection: normal respiratory effort Cardio Palpation: normal PMI Rate: regular rate Rhythm: regular rhythm GI Inspection: abnormal to inspection (georges drain in RLQ) Palpation: soft and nontender Auscultation: normal bowel sounds General: bimanual renal exam normal bilaterally Skin General: no rashes or lesions noted Neuro General: patient oriented x3 Extrem General: normal to inspection Objective Microbiology Microbiology: Microbiology - Results from entire visit 08/15/24 15:06 Blood - Right Antecubital Blood Culture - Final NO GROWTH 5 DAYS 08/15/24 15:17 Blood - Right Forearm Blood Culture - Final NO GROWTH 5 DAYS 08/15/24 11:23 Abdomen - Abscess Aerobic Culture - Final Staphylococcus aureus 08/15/24 11:23 Abdomen - Abscess Anaerobic Culture - Final No Anaerobes Isolated 3 Days 08/15/24 11:23 Abdomen - Abscess Gram Stain - Final Additional Results Results Comment: Allergies and Medications Allergies and Active Meds Allergies No Known Allergies Allergy (Verified 08/08/24 19:47) Active Medications Acetaminophen (Acetaminophen 500 Mg Tablet) 1,000 mg PO Q6HR PRN PRN Reason: Pain Scale 1 - 3 or fever Stop: 08/14/25 22:17 Last Admin: 08/20/24 22:47 Dose: 1,000 mg Cefazolin Sodium (Cefazolin 2 Gm/11 Ml Syringe) 2 gm IV-PUSH Q8H [facility] Last Admin: 08/21/24 08:48 Dose: 2 gm Dextrose (Dextrose 50% In Water 25 Gm/50 Ml Syringe) 0 gm IV-PUSH PRN PRN PRN Reason: Hypoglycemia Stop: 08/14/25 22:17 Glucose (Dextrose 40% Gel 15 Gm Tube) 0 gm PO PRN PRN PRN Reason: Hypoglycemia Stop: 08/14/25 22:17 Home Med (Home Meds Kept In Pharmacy) 1 each MISCELLANE PRN PRN PRN Reason: zz.Pharmacy Note Stop: 08/17/25 06:40 Hydromorphone HCl (Hydromorphone 1 Mg/Ml Syringe) 1 mg IV-PUSH Q1H PRN PRN Reason: Pain Scale 7 - 10 Last Admin: 08/21/24 08:48 Dose: 1 mg Insulin Aspart (Insulin Aspart 300 Units/3 Ml) 0 units SUBCUT TID.[facility]; Protocol Stop: 08/15/25 07:59 Last Admin: 08/21/24 08:52 Dose: 7 units Insulin Aspart (Insulin Aspart 300 Units/3 Ml) 0 units SUBCUT TID.WITH.[facility]ALS [facility]; Protocol Stop: 08/15/25 16:59 Last Admin: 08/21/24 08:53 Dose: 5 units Insulin Glargine (Insulin Glargine 300 Units/3 Ml Insuln.Pen) 55 units SUBCUT DAILY [facility] Stop: 08/20/25 08:59 Last Admin: 08/21/24 08:53 Dose: 55 units Naproxen (Naproxen 250 Mg Tablet) 250 mg PO TID.WITH.[facility] Stop: 08/16/25 11:59 Last Admin: 08/21/24 08:48 Dose: 250 mg Ondansetron HCl (Ondansetron 4 Mg/2 Ml Vial) 4 mg IV-PUSH Q6H PRN PRN Reason: Nausea And Vomiting Stop: 08/14/25 22:17 Oxycodone HCl (Oxycodone Ir 5 Mg Tablet) 10 mg PO Q4HR PRN PRN Reason: Pain Scale 4 - 7 Last Admin: 08/21/24 02:52 Dose: 10 mg Pantoprazole Sodium (Pantoprazole 40 Mg Tablet.Dr) 40 mg PO DAILY.AC.BKFAST [facility] Stop: 08/15/25 07:29 Last Admin: 08/21/24 08:48 Dose: 40 mg Polyethylene Glycol (Polyethylene Glycol 3350 17 Gm Powd.Pack) 17 gm PO DAILY PRN PRN Reason: Constipation Stop: 08/19/25 12:35 Senna/Docusate Sodium (Sennosides/Docusate 8.6-50mg 1 Tab Tablet) 2 tab PO BID PRN PRN Reason: constipation Stop: 08/19/25 20:59 Sodium Chloride (Sodium Chloride 0.9 % 10 Ml Syringe) 0 ml IV-PUSH QSHIFT SANDI Stop: 08/15/25 05:59 Last Admin: 08/21/24 06:38 Dose: 10 ml Sodium Chloride (Sodium Chloride 0.9 % 10 Ml Syringe) 10 ml IV-PUSH PRN PRN PRN Reason: Flush Stop: 08/15/25 11:03 Last Admin: 08/20/24 00:17 Dose: 10 ml Sodium Chloride (Sodium Chloride 0.9 % 10 Ml Syringe) 0 ml IV-PUSH PRN PRN PRN Reason: Flush Stop: 08/17/25 12:52 Last Admin: 08/21/24 06:54 Dose: 10 ml A&P - Infectious Disease Assessment/Plan (1) Abscess of right iliac fossa: Plan Catheter placement into this abscess read on August 20 CT scan states this area in his iliac us muscle is poorly drained by the current catheter. Size of heterogeneous masslike lesion measured to be 5.6 x 7.4 x 10.5 cm for which is larger than the pelvic CT August 17. Patient's initial culture grew MSSA. Remains on cefazolin therapy. He remains afebrile for which is an improvement and he no longer has night sweats. Clearly this pigtail drainage catheter is not draining what is going on adequately. Hospitalist planning to transfer to [place] but of course that was not available yesterday upon initial call. Patient vital signs fortunately remained stable but concern over exam and possibility of this given enlarging raises concern. CRP will be reordered today. No CBC ordered today; will order this. Documented By: Jorge England MD 08/21/24 0958 Signed By: <Electronically signed by MD Jorge England> 08/21/24 [facility] Work Phone: [phone]) 428-309202-13-2025 [place] [address] Hospitalist Progress Note Signed Patient: Isaias Estrella MR#: [id number] : 2000 Acct:[id number] Age/Sex: 24 / M Adm Date: 5 Loc: Room: [address] [place] [address] Type: ADM IN Attending Dr: Kanu Fry MD Copies to: ~ Date of Service: 08/21/2024 Subjective Subjective Narrative: No significant change in clinical condition. Continues to have significant right lower quadrant pain. Minimal drainage from the tube.No fever last night. Heart is regular. [id number] ultrasound is unremarkable. Lungs are clear Abdomen tender in the right lower quadrant with positive rebound no rigidity. Exam Physical Exam Vital Signs: Temp Pulse Resp BP Pulse Ox O2 Del Method 98.6 F 91 14 119/76 97 Room Air 08/21/24 08:00 08/21/24 08:00 08/21/24 08:00 08/21/24 08:00 08/21/24 08:00 08/21/24 08:00 Objective Lab Results 08/21/24 10:08 08/20/24 07:20 Microbiology Results Microbiology 08/15/24 15:06 Blood - Right Antecubital Blood Culture - Final NO GROWTH 5 DAYS 08/15/24 15:17 Blood - Right Forearm Blood Culture - Final NO GROWTH 5 DAYS Meds Allergies and Active Meds Allergies No Known Allergies Allergy (Verified 08/08/24 19:47) Active Meds: Active Medications Generic Name Dose Route Start Last Admin Trade Name Leslye PRN Reason Stop Dose Admin Acetaminophen 1,000 mg 08/14/24 22:18 08/20/24 22:47 Acetaminophen 500 Mg Tablet PO 08/14/25 22:17 1,000 mg Q6HR PRN Administration Pain Scale 1 - 3 or fever Cefazolin Sodium 2 gm 08/18/24 00:00 08/21/24 08:48 Cefazolin 2 Gm/11 Ml Syringe IV-PUSH 2 gm Q8H SANDI Administration Dextrose 0 gm 08/14/24 22:18 Dextrose 50% In Water 25 Gm/50 Ml Syringe IV-PUSH 08/14/25 22:17 PRN PRN Hypoglycemia Glucose 0 gm 08/14/24 22:18 Dextrose 40% Gel 15 Gm Tube PO 08/14/25 22:17 PRN PRN Hypoglycemia Home Med 1 each 08/17/24 06:41 Home Meds Kept In Pharmacy MISCELLANE 08/17/25 06:40 PRN PRN zz.Pharmacy Note Hydromorphone HCl 1 mg 08/20/24 03:47 08/21/24 13:02 Hydromorphone 1 Mg/Ml Syringe IV-PUSH 1 mg Q1H PRN Administration Pain Scale 7 - 10 Insulin Aspart 0 units 08/15/24 08:00 08/21/24 13:04 Insulin Aspart 300 Units/3 Ml SUBCUT 08/15/25 07:59 3 units TID.WM.HS SANDI Administration Protocol Insulin Aspart 0 units 08/15/24 17:00 08/21/24 13:05 Insulin Aspart 300 Units/3 Ml SUBCUT 08/15/25 16:59 4 units TID.WITH.MEALS SANDI Administration Protocol Insulin Glargine 55 units 08/20/24 09:00 08/21/24 08:53 Insulin Glargine 300 Units/3 Ml Insuln.Pen SUBCUT 08/20/25 08:59 55 units DAILY SANDI Administration Naproxen 250 mg 08/16/24 12:00 08/21/24 13:02 Naproxen 250 Mg Tablet PO 08/16/25 11:59 250 mg TID.WITH.MEALS SANDI Administration Ondansetron HCl 4 mg 08/14/24 22:18 Ondansetron 4 Mg/2 Ml Vial IV-PUSH 08/14/25 22:17 Q6H PRN Nausea And Vomiting Oxycodone HCl 10 mg 08/19/24 10:08 08/21/24 02:52 Oxycodone Ir 5 Mg Tablet PO 10 mg Q4HR PRN Administration Pain Scale 4 - 7 Pantoprazole Sodium 40 mg 08/15/24 07:30 08/21/24 08:48 Pantoprazole 40 Mg Tablet.Dr PO 08/15/25 07:29 40 mg DAILY.AC.BKFAST SANDI Administration Polyethylene Glycol 17 gm 08/19/24 12:36 Polyethylene Glycol 3350 17 Gm Powd.Pack PO 08/19/25 12:35 DAILY PRN Constipation Senna/Docusate Sodium 2 tab 08/19/24 12:36 Sennosides/Docusate 8.6-50mg 1 Tab Tablet PO 08/19/25 20:59 BID PRN constipation Sodium Chloride 0 ml 08/15/24 06:00 08/21/24 06:38 Sodium Chloride 0.9 % 10 Ml Syringe IV-PUSH 08/15/25 05:59 10 ml QSHIFT SANDI Administration Sodium Chloride 10 ml 08/15/24 11:04 08/21/24 10:23 Sodium Chloride 0.9 % 10 Ml Syringe IV-PUSH 08/15/25 11:03 10 ml PRN PRN Administration Flush Sodium Chloride 0 ml 08/17/24 12:53 08/21/24 06:54 Sodium Chloride 0.9 % 10 Ml Syringe IV-PUSH 08/17/25 12:52 10 ml PRN PRN Administration Flush A&P - Hospitalist Assessment/Plan (1) Abscess of right iliac fossa: (2) Type 1 diabetes mellitus: Plan 1. Right iliopsoas muscle abscess, probably an infected hematoma Continue antimicrobial therapy with IV cefazolin based on cultures. Pending transfer to [facility] in [place]. #2. Diabetes mellitus type 2.Blood sugar better controlled today. Continue to monitor and make daily adjustments as necessary. DVT prophylaxis SCDs Documented By: Kanu Fry MD 08/21/24 1315 Signed By: 08/21/24 1316 [facility]02-13-2025 [place] [id number] Infect. Disease Progress Note Signed Patient: Isaias Estrella MR#: [id number] : 2000 Acct:[id number] Age/Sex: 24 / M Adm Date: 5 Loc: 3T Room: [address] [place] [address] Type: ADM IN Attending Dr: Kanu Fry MD Copies to: ~ Date of Service: 08/21/2024 Subjective Interval history: Patient states his pain is 10 out of 10. Transfer to [place] initiated yesterday. Awaiting bed. Vital signs remain stable. Exam Physical Exam Vital Signs: Vital Signs Temp Pulse Resp BP Pulse Ox O2 Del Method 08/21/24 08:00 98.6 F 91 14 119/76 97 Room Air 08/21/24 06:20 98.8 F 88 14 108/62 98 Room Air 08/21/24 04:57 98.0 F 88 14 106/60 98 Room Air 08/21/24 02:54 102/66 08/21/24 01:16 90 16 116/66 99 Room Air 08/21/24 00:10 97.8 F 89 16 118/75 99 Room Air 08/20/24 20:09 Room Air 08/20/24 20:01 98.2 F 78 16 106/72 97 Room Air 08/20/24 15:28 98.1 F 94 16 114/68 98 Room Air 08/20/24 12:31 99/55 L 08/20/24 11:27 96/56 L 08/20/24 11:20 Room Air 08/20/24 11:17 98.1 F 86 16 95/55 L 98 Room Air Intake and Output 08/20/24 08/21/24 08/21/24 23:59 07:59 15:59 Intake Total 1300 / 2700 1500 / 1500 Output Total 1657 / 3677 2407 / 2407 Balance -357 / -977 -907 / -907 Intake: Oral 1300 / 2700 1500 / 1500 Output: Urine 1650 / 3650 2400 / 2400 Wound Drainage Site #1 Other: # Bowel Movements 0 0 Weight 76.9 kg Date of Last Bowel Movement 08/19/24 Patient Weight 08/21/24 23:59 Weight 76.9 kg Const General: cooperative and comfortable Nutritional Appearance: average body habitus HEENT Head: normal to inspection Mouth: oral mucosae normal Teeth and gingiva: dentition normal Eyes General: appearance normal, both eyes and all related structures Neck Neck: normal visual inspection Chest Chest palpation & inspection: normal inspection of the chest Resp Effort & Inspection: normal respiratory effort Cardio Palpation: normal PMI Rate: regular rate Rhythm: regular rhythm GI Inspection: abnormal to inspection (georges drain in RLQ) Palpation: soft and nontender Auscultation: normal bowel sounds General: bimanual renal exam normal bilaterally Skin General: no rashes or lesions noted Neuro General: patient oriented x3 Extrem General: normal to inspection Objective Microbiology Microbiology: Microbiology - Results from entire visit 08/15/24 15:06 Blood - Right Antecubital Blood Culture - Final NO GROWTH 5 DAYS 08/15/24 15:17 Blood - Right Forearm Blood Culture - Final NO GROWTH 5 DAYS 08/15/24 11:23 Abdomen - Abscess Aerobic Culture - Final Staphylococcus aureus 08/15/24 11:23 Abdomen - Abscess Anaerobic Culture - Final No Anaerobes Isolated 3 Days 08/15/24 11:23 Abdomen - Abscess Gram Stain - Final Additional Results Results Comment: Allergies and Medications Allergies and Active Meds Allergies No Known Allergies Allergy (Verified 08/08/24 19:47) Active Medications Acetaminophen (Acetaminophen 500 Mg Tablet) 1,000 mg PO Q6HR PRN PRN Reason: Pain Scale 1 - 3 or fever Stop: 08/14/25 22:17 Last Admin: 08/20/24 22:47 Dose: 1,000 mg Cefazolin Sodium (Cefazolin 2 Gm/11 Ml Syringe) 2 gm IV-PUSH Q8H SANDI Last Admin: 08/21/24 08:48 Dose: 2 gm Dextrose (Dextrose 50% In Water 25 Gm/50 Ml Syringe) 0 gm IV-PUSH PRN PRN PRN Reason: Hypoglycemia Stop: 08/14/25 22:17 Glucose (Dextrose 40% Gel 15 Gm Tube) 0 gm PO PRN PRN PRN Reason: Hypoglycemia Stop: 08/14/25 22:17 Home Med (Home Meds Kept In Pharmacy) 1 each MISCELLANE PRN PRN PRN Reason: alice.Pharmacy Note Stop: 08/17/25 06:40 Hydromorphone HCl (Hydromorphone 1 Mg/Ml Syringe) 1 mg IV-PUSH Q1H PRN PRN Reason: Pain Scale 7 - 10 Last Admin: 08/21/24 08:48 Dose: 1 mg Insulin Aspart (Insulin Aspart 300 Units/3 Ml) 0 units SUBCUT TID.[facility]; Protocol Stop: 08/15/25 07:59 Last Admin: 08/21/24 08:52 Dose: 7 units Insulin Aspart (Insulin Aspart 300 Units/3 Ml) 0 units SUBCUT TID.WITH.[facility]; Protocol Stop: 08/15/25 16:59 Last Admin: 08/21/24 08:53 Dose: 5 units Insulin Glargine (Insulin Glargine 300 Units/3 Ml Insuln.Pen) 55 units SUBCUT DAILY [facility] Stop: 08/20/25 08:59 Last Admin: 08/21/24 08:53 Dose: 55 units Naproxen (Naproxen 250 Mg Tablet) 250 mg PO TID.WITH.[facility]ALS [facility] Stop: 08/16/25 11:59 Last Admin: 08/21/24 08:48 Dose: 250 mg Ondansetron HCl (Ondansetron 4 Mg/2 Ml Vial) 4 mg IV-PUSH Q6H PRN PRN Reason: Nausea And Vomiting Stop: 08/14/25 22:17 Oxycodone HCl (Oxycodone Ir 5 Mg Tablet) 10 mg PO Q4HR PRN PRN Reason: Pain Scale 4 - 7 Last Admin: 08/21/24 02:52 Dose: 10 mg Pantoprazole Sodium (Pantoprazole 40 Mg Tablet.Dr) 40 mg PO DAILY.AC.BKFAST [facility] Stop: 08/15/25 07:29 Last Admin: 08/21/24 08:48 Dose: 40 mg Polyethylene Glycol (Polyethylene Glycol 3350 17 Gm Powd.Pack) 17 gm PO DAILY PRN PRN Reason: Constipation Stop: 08/19/25 12:35 Senna/Docusate Sodium (Sennosides/Docusate 8.6-50mg 1 Tab Tablet) 2 tab PO BID PRN PRN Reason: constipation Stop: 08/19/25 20:59 Sodium Chloride (Sodium Chloride 0.9 % 10 Ml Syringe) 0 ml IV-PUSH QSHIFT [facility] Stop: 08/15/25 05:59 Last Admin: 08/21/24 06:38 Dose: 10 ml Sodium Chloride (Sodium Chloride 0.9 % 10 Ml Syringe) 10 ml IV-PUSH PRN PRN PRN Reason: Flush Stop: 08/15/25 11:03 Last Admin: 08/20/24 00:17 Dose: 10 ml Sodium Chloride (Sodium Chloride 0.9 % 10 Ml Syringe) 0 ml IV-PUSH PRN PRN PRN Reason: Flush Stop: 08/17/25 12:52 Last Admin: 08/21/24 06:54 Dose: 10 ml A&P - Infectious Disease Assessment/Plan (1) Abscess of right iliac fossa: Plan Catheter placement into this abscess read on August 20 CT scan states this area in his iliac us muscle is poorly drained by the current catheter. Size of heterogeneous masslike lesion measured to be 5.6 x 7.4 x 10.5 cm for which is larger than the pelvic CT August 17. Patient's initial culture grew MSSA. Remains on cefazolin therapy. He remains afebrile for which is an improvement and he no longer has night sweats. Clearly this pigtail drainage catheter is not draining what is going on adequately. Hospitalist planning to transfer to [place] but of course that was not available yesterday upon initial call. Patient vital signs fortunately remained stable but concern over exam and possibility of this given enlarging raises concern. CRP will be reordered today. No CBC ordered today; will order this. Documented By: Jorge England MD 08/21/24 0958 Signed By: 08/21/24 [facility]2 [facility]02-12-2025 Progress note Author Kanu Fry [facility] Note Date/Time August 20, 2024 1:01pm [facility] [address] [place] [address] Hospitalist Progress Note Signed Patient: Isaias Estrella MR#: [id number] : 2000 Acct:[id number] Age/Sex: 24 / M Adm Date: 5 Loc: Room: [address] [place] [address] Type: ADM IN Attending Dr: Kanu Fry MD Copies to: ~ Date of Service: 08/20/2024 Subjective Subjective Narrative: Onset last night noted. Currently the patient is reasonably comfortable. Smallamount of bloody material being drained. Abdomen is tender in the right lower quadrant. Positive rebound. No rigidity organomegaly. Heart is regular Lungs are clear Exam Physical Exam Vital Signs: Temp Pulse Resp BP Pulse Ox O2 Del Method 98.1 F 86 16 99/55 L 98 Room Air 08/20/24 11:17 08/20/24 11:17 08/20/24 11:17 08/20/24 12:31 08/20/24 11:17 08/20/24 11:20 Objective Lab Results 08/20/24 07:20 08/20/24 07:20 Microbiology Results Microbiology 08/15/24 15:06 Blood - Right Antecubital Blood Culture - Preliminary No Growth 4 Days 08/15/24 15:17 Blood - Right Forearm Blood Culture - Preliminary No Growth 4 Days Meds Allergies and Active Meds Allergies No Known Allergies Allergy (Verified 08/08/24 19:47) Active Meds: Active Medications Generic Name Dose Route Start Last Admin Trade Name Freq PRN Reason Stop Dose Admin Acetaminophen 1,000 mg 08/14/24 22:18 08/20/24 08:41 Acetaminophen 500 Mg Tablet PO 08/14/25 22:17 1,000 mg Q6HR PRN Administration Pain Scale 1 - 3 or fever Cefazolin Sodium 2 gm 08/18/24 00:00 08/20/24 08:40 Cefazolin 2 Gm/11 Ml Syringe IV-PUSH 2 gm Q8H SANDI Administration Dextrose 0 gm 08/14/24 22:18 Dextrose 50% In Water 25 Gm/50 Ml Syringe IV-PUSH 08/14/25 22:17 PRN PRN Hypoglycemia Glucose 0 gm 08/14/24 22:18 Dextrose 40% Gel 15 Gm Tube PO 08/14/25 22:17 PRN PRN Hypoglycemia Home Med 1 each 08/17/24 06:41 Home Meds Kept In Pharmacy MISCELLANE 08/17/25 06:40 PRN PRN zz.Pharmacy Note Hydromorphone HCl 1 mg 08/20/24 03:47 08/20/24 12:04 Hydromorphone 1 Mg/Ml Syringe IV-PUSH 1 mg Q1H PRN Administration Pain Scale 7 - 10 Insulin Aspart 0 units 08/15/24 08:00 08/20/24 12:03 Insulin Aspart 300 Units/3 Ml SUBCUT 08/15/25 07:59 Not Given TID.[facility] Protocol Insulin Aspart 0 units 08/15/24 17:00 08/20/24 12:04 Insulin Aspart 300 Units/3 Ml SUBCUT 08/15/25 16:59 Not Given TID.WITH.[facility] Protocol Insulin Glargine 55 units 08/20/24 09:00 08/20/24 08:42 Insulin Glargine 300 Units/3 Ml Insuln.Pen SUBCUT 08/20/25 08:59 55 units DAILY SANDI Administration Naproxen 250 mg 08/16/24 12:00 08/20/24 11:29 Naproxen 250 Mg Tablet PO 08/16/25 11:59 250 mg TID.WITH.MEALS SANDI Administration Ondansetron HCl 4 mg 08/14/24 22:18 Ondansetron 4 Mg/2 Ml Vial IV-PUSH 08/14/25 22:17 Q6H PRN Nausea And Vomiting Oxycodone HCl 10 mg 08/19/24 10:08 08/20/24 08:41 Oxycodone Ir 5 Mg Tablet PO 10 mg Q4HR PRN Administration Pain Scale 4 - 7 Pantoprazole Sodium 40 mg 08/15/24 07:30 08/20/24 08:40 Pantoprazole 40 Mg Tablet.Dr PO 08/15/25 07:29 40 mg DAILY.AC.BKFAST SANDI Administration Polyethylene Glycol 17 gm 08/19/24 12:36 Polyethylene Glycol 3350 17 Gm Powd.Pack PO 08/19/25 12:35 DAILY PRN Constipation Senna/Docusate Sodium 2 tab 08/19/24 12:36 Sennosides/Docusate 8.6-50mg 1 Tab Tablet PO 08/19/25 20:59 BID PRN constipation Sodium Chloride 0 ml 08/15/24 06:00 08/20/24 05:53 Sodium Chloride 0.9 % 10 Ml Syringe IV-PUSH 08/15/25 05:59 10 ml QSHIFT SANDI Administration Sodium Chloride 10 ml 08/15/24 11:04 08/20/24 00:17 Sodium Chloride 0.9 % 10 Ml Syringe IV-PUSH 08/15/25 11:03 10 ml PRN PRN Administration Flush Sodium Chloride 0 ml 08/17/24 12:53 Sodium Chloride 0.9 % 10 Ml Syringe IV-PUSH 08/17/25 12:52 PRN PRN Flush Sterile Water 0 ml 08/15/24 14:00 08/20/24 08:41 Water For Injection,Sterile 10 Ml Vial IRRIGATION 08/15/25 13:59 10 ml QID SANDI Administration A&P - Hospitalist Assessment/Plan (1) Abscess of right iliac fossa: (2) Type 1 diabetes mellitus: Plan 1. Right iliopsoas muscle abscess, probably an infected hematoma Continue antimicrobial therapy with IV cefazolin based on cultures. Patient does not appear to be improving clinically, and there is some blockage of the drain. I spoke with general surgery service, recommendation was to transfer out to a tertiary center. No beds available in [facility], will transversely [place]. Patient prefers that area. Meanwhile continue current management. Discussed with ID. Consideration will be given to repeat IR drainage if the transfer is delayed. #2. Diabetes mellitus type 2.Blood sugar better controlled today. Continue to monitor and make daily adjustments as necessary. DVT prophylaxis SCDs Documented By: Kanu Fry MD 08/20/24 1258 Signed By: <Electronically signed by Kanu Fry MD> 08/20/24 1301 [facility] Work Phone: 1(501) 570-589102-12-2025 [place] [address] Hospitalist Progress Note Signed Patient: Isaias Estrella MR#: [id number] : 2000 Acct:[id number] Age/Sex: 24 / M Adm Date: 5 Loc: Room: [address] [place] [address] Type: ADM IN Attending Dr: Kanu Fry MD Copies to: ~ Date of Service: 08/20/2024 Subjective Subjective Narrative: Onset last night noted. Currently the patient is reasonably comfortable. Smallamount of bloody material being drained. Abdomen is tender in the right lower quadrant. Positive rebound. No rigidity organomegaly. Heart is regular Lungs are clear Exam Physical Exam Vital Signs: Temp Pulse Resp BP Pulse Ox O2 Del Method 98.1 F 86 16 99/55 L 98 Room Air 08/20/24 11:17 08/20/24 11:17 08/20/24 11:17 08/20/24 12:31 08/20/24 11:17 08/20/24 11:20 Objective Lab Results 08/20/24 07:20 08/20/24 07:20 Microbiology Results Microbiology 08/15/24 15:06 Blood - Right Antecubital Blood Culture - Preliminary No Growth 4 Days 08/15/24 15:17 Blood - Right Forearm Blood Culture - Preliminary No Growth 4 Days Meds Allergies and Active Meds Allergies No Known Allergies Allergy (Verified 08/08/24 19:47) Active Meds: Active Medications Generic Name Dose Route Start Last Admin Trade Name Leslye PRN Reason Stop Dose Admin Acetaminophen 1,000 mg 08/14/24 22:18 08/20/24 08:41 Acetaminophen 500 Mg Tablet PO 08/14/25 22:17 1,000 mg Q6HR PRN Administration Pain Scale 1 - 3 or fever Cefazolin Sodium 2 gm 08/18/24 00:00 08/20/24 08:40 Cefazolin 2 Gm/11 Ml Syringe IV-PUSH 2 gm Q8H SANDI Administration Dextrose 0 gm 08/14/24 22:18 Dextrose 50% In Water 25 Gm/50 Ml Syringe IV-PUSH 08/14/25 22:17 PRN PRN Hypoglycemia Glucose 0 gm 08/14/24 22:18 Dextrose 40% Gel 15 Gm Tube PO 08/14/25 22:17 PRN PRN Hypoglycemia Home Med 1 each 08/17/24 06:41 Home Meds Kept In Pharmacy MISCELLANE 08/17/25 06:40 PRN PRN zz.Pharmacy Note Hydromorphone HCl 1 mg 08/20/24 03:47 08/20/24 12:04 Hydromorphone 1 Mg/Ml Syringe IV-PUSH 1 mg Q1H PRN Administration Pain Scale 7 - 10 Insulin Aspart 0 units 08/15/24 08:00 08/20/24 12:03 Insulin Aspart 300 Units/3 Ml SUBCUT 08/15/25 07:59 Not Given TID.[facility] Protocol Insulin Aspart 0 units 08/15/24 17:00 08/20/24 12:04 Insulin Aspart 300 Units/3 Ml SUBCUT 08/15/25 16:59 Not Given TID.WITH.[facility] Protocol Insulin Glargine 55 units 08/20/24 09:00 08/20/24 08:42 Insulin Glargine 300 Units/3 Ml Insuln.Pen SUBCUT 08/20/25 08:59 55 units DAILY SANDI Administration Naproxen 250 mg 08/16/24 12:00 08/20/24 11:29 Naproxen 250 Mg Tablet PO 08/16/25 11:59 250 mg TID.WITH.MEALS SANDI Administration Ondansetron HCl 4 mg 08/14/24 22:18 Ondansetron 4 Mg/2 Ml Vial IV-PUSH 08/14/25 22:17 Q6H PRN Nausea And Vomiting Oxycodone HCl 10 mg 08/19/24 10:08 08/20/24 08:41 Oxycodone Ir 5 Mg Tablet PO 10 mg Q4HR PRN Administration Pain Scale 4 - 7 Pantoprazole Sodium 40 mg 08/15/24 07:30 08/20/24 08:40 Pantoprazole 40 Mg Tablet. PO 08/15/25 07:29 40 mg DAILY.AC.BKFAST SADNI Administration Polyethylene Glycol 17 gm 08/19/24 12:36 Polyethylene Glycol 3350 17 Gm Powd.Pack PO 08/19/25 12:35 DAILY PRN Constipation Senna/Docusate Sodium 2 tab 08/19/24 12:36 Sennosides/Docusate 8.6-50mg 1 Tab Tablet PO 08/19/25 20:59 BID PRN constipation Sodium Chloride 0 ml 08/15/24 06:00 08/20/24 05:53 Sodium Chloride 0.9 % 10 Ml Syringe IV-PUSH 08/15/25 05:59 10 ml QSHIFT SANDI Administration Sodium Chloride 10 ml 08/15/24 11:04 08/20/24 00:17 Sodium Chloride 0.9 % 10 Ml Syringe IV-PUSH 08/15/25 11:03 10 ml PRN PRN Administration Flush Sodium Chloride 0 ml 08/17/24 12:53 Sodium Chloride 0.9 % 10 Ml Syringe IV-PUSH 08/17/25 12:52 PRN PRN Flush Sterile Water 0 ml 08/15/24 14:00 08/20/24 08:41 Water For Injection,Sterile 10 Ml Vial IRRIGATION 08/15/25 13:59 10 ml QID SANDI Administration A&P - Hospitalist Assessment/Plan (1) Abscess of right iliac fossa: (2) Type 1 diabetes mellitus: Plan 1. Right iliopsoas muscle abscess, probably an infected hematoma Continue antimicrobial therapy with IV cefazolin based on cultures. Patient does not appear to be improving clinically, and there is some blockage of the drain. I spoke with general surgery service, recommendation was to transfer out to a tertiary center. No beds available in [facility], will transversely [place]. Patient prefers that area. Meanwhile continue current management. Discussed with ID. Consideration will be given to repeat IR drainage if the transfer isdelayed. #2. Diabetes mellitus type 2.Blood sugar better controlled today. Continue to monitor and make daily adjustments as necessary. DVT prophylaxis SCDs Documented By: Kanu Fry MD 08/20/24 1258 Signed By: 08/20/24 1301 [facility]02-12-2025 Progress note Author Jorge England [facility] Note Date/Time August 20, 2024 10:42am [facility] [address] [place] [address] Infect. Disease Progress Note Signed Patient: Isaias Estrella MR#: [id number] : 2000 Acct:[id number] Age/Sex: 24 / M Adm Date: 5 Loc: Room: [address] [place] [address] Type: ADM IN Attending Dr: Kanu Fry MD Copies to: ~ Date of Service: 08/20/2024 Subjective Interval history: Last night when sleeping apparently rolled over and had acute onset of worseningpain in his right lower quadrant down to his leg. He GEORGES drain apparently stopped draining for a bit but is back to draining somewhat this morning. Stillhaving a lot of discomfort. No fevers or chills. Discussed with the hospitalist who apparently discussed with general surgeon and they felt it was best to transfer the patient to tertiary care center. Exam Physical Exam Vital Signs: Temp Pulse Resp BP Pulse Ox O2 Del Method 98.5 F 102 H 18 105/69 95 Room Air 08/20/24 09:35 08/20/24 09:35 08/20/24 09:35 08/20/24 09:35 08/20/24 09:35 08/20/24 09:35 Const General: cooperative and comfortable Nutritional Appearance: average body habitus HEENT Head: normal to inspection Mouth: oral mucosae normal Teeth and gingiva: dentition normal Eyes General: appearance normal, both eyes and all related structures Neck Neck: normal visual inspection Chest Chest palpation & inspection: normal inspection of the chest Resp Effort & Inspection: normal respiratory effort Cardio Palpation: normal PMI Rate: regular rate Rhythm: regular rhythm GI Inspection: abnormal to inspection (georges drain in RLQ) Palpation: soft and nontender Auscultation: normal bowel sounds General: bimanual renal exam normal bilaterally Skin General: no rashes or lesions noted Neuro General: patient oriented x3 Extrem General: normal to inspection Objective Labs CBC/BMP: CBC, BMP 08/20/24 07:20 Corrected WBC 10.4 Uncorrected WBC Count 10.4 RBC 3.22 L Hgb 10.7 L Hct 30.4 L Plt Count 449 Sodium 138 Potassium 4.7 Chloride 101 Carbon Dioxide 32.6 H Anion Gap 9.1 BUN 15 Creatinine 0.67 L Calcium 9.4 Labs: 08/20/24 07:20 BUN 15 Creatinine 0.67 L Microbiology Microbiology: Microbiology - Results from entire visit 08/15/24 15:06 Blood - Right Antecubital Blood Culture - Preliminary No Growth 4 Days 08/15/24 15:17 Blood - Right Forearm Blood Culture - Preliminary No Growth 4 Days 08/15/24 11:23 Abdomen - Abscess Aerobic Culture - Final Staphylococcus aureus 08/15/24 11:23 Abdomen - Abscess Anaerobic Culture - Final No Anaerobes Isolated 3 Days 08/15/24 11:23 Abdomen - Abscess Gram Stain - Final Allergies and Medications Allergies and Active Meds Allergies No Known Allergies Allergy (Verified 08/08/24 19:47) Active Medications Acetaminophen (Acetaminophen 500 Mg Tablet) 1,000 mg PO Q6HR PRN PRN Reason: Pain Scale 1 - 3 or fever Stop: 08/14/25 22:17 Last Admin: 08/20/24 08:41 Dose: 1,000 mg Cefazolin Sodium (Cefazolin 2 Gm/11 Ml Syringe) 2 gm IV-PUSH Q8H SANDI Last Admin: 08/20/24 08:40 Dose: 2 gm Dextrose (Dextrose 50% In Water 25 Gm/50 Ml Syringe) 0 gm IV-PUSH PRN PRN PRN Reason: Hypoglycemia Stop: 08/14/25 22:17 Glucose (Dextrose 40% Gel 15 Gm Tube) 0 gm PO PRN PRN PRN Reason: Hypoglycemia Stop: 08/14/25 22:17 Home Med (Home Meds Kept In Pharmacy) 1 each MISCELLANE PRN PRN PRN Reason: zz.Pharmacy Note Stop: 08/17/25 06:40 Hydromorphone HCl (Hydromorphone 1 Mg/Ml Syringe) 1 mg IV-PUSH Q1H PRN PRN Reason: Pain Scale 7 - 10 Last Admin: 08/20/24 09:45 Dose: 1 mg Insulin Aspart (Insulin Aspart 300 Units/3 Ml) 0 units SUBCUT TID.[facility]; Protocol Stop: 08/15/25 07:59 Last Admin: 08/20/24 08:44 Dose: 4 units Insulin Aspart (Insulin Aspart 300 Units/3 Ml) 0 units SUBCUT TID[facility]; Protocol Stop: 08/15/25 16:59 Last Admin: 08/20/24 09:46 Dose: Not Given Insulin Glargine (Insulin Glargine 300 Units/3 Ml Insuln.Pen) 55 units SUBCUT DAILY [facility] Stop: 08/20/25 08:59 Last Admin: 08/20/24 08:42 Dose: 55 units Naproxen (Naproxen 250 Mg Tablet) 250 mg PO TID.[facility] Stop: 08/16/25 11:59 Last Admin: 08/20/24 08:40 Dose: 250 mg Ondansetron HCl (Ondansetron 4 Mg/2 Ml Vial) 4 mg IV-PUSH Q6H PRN PRN Reason: Nausea And Vomiting Stop: 08/14/25 22:17 Oxycodone HCl (Oxycodone Ir 5 Mg Tablet) 10 mg PO Q4HR PRN PRN Reason: Pain Scale 4 - 7 Last Admin: 08/20/24 08:41 Dose: 10 mg Pantoprazole Sodium (Pantoprazole 40 Mg Tablet.Dr) 40 mg PO DAILY.[facility] Stop: 08/15/25 07:29 Last Admin: 08/20/24 08:40 Dose: 40 mg Polyethylene Glycol (Polyethylene Glycol 3350 17 Gm Powd.Pack) 17 gm PO DAILY PRN PRN Reason: Constipation Stop: 08/19/25 12:35 Senna/Docusate Sodium (Sennosides/Docusate 8.6-50mg 1 Tab Tablet) 2 tab PO BID PRN PRN Reason: constipation Stop: 08/19/25 20:59 Sodium Chloride (Sodium Chloride 0.9 % 10 Ml Syringe) 0 ml IV-PUSH QSHIFT SANDI Stop: 08/15/25 05:59 Last Admin: 08/20/24 05:53 Dose: 10 ml Sodium Chloride (Sodium Chloride 0.9 % 10 Ml Syringe) 10 ml IV-PUSH PRN PRN PRN Reason: Flush Stop: 08/15/25 11:03 Last Admin: 08/20/24 00:17 Dose: 10 ml Sodium Chloride (Sodium Chloride 0.9 % 10 Ml Syringe) 0 ml IV-PUSH PRN PRN PRN Reason: Flush Stop: 08/17/25 12:52 Sterile Water (Water For Injection,Sterile 10 Ml Vial) 0 ml IRRIGATION QID SANDI Stop: 08/15/25 13:59 Last Admin: 08/20/24 08:41 Dose: 10 ml A&P - Infectious Disease Assessment/Plan (1) Abscess of right iliac fossa: Plan Patient GEORGES drain is draining some more at this morning and apparently drained overnight. Patient have a lot of discomfort in his right lower quadrant still though. White count today is 10.4. Markers of inflammation not checked today. Transfer is going to be initiated. Continues on cefazolin therapy. If bed not can to be available and transfer delayed may need to consider another IR drainage insertion to alleviate pressure/discomfort/pocket Documented By: Jorge England MD 08/20/241039 Signed By: <Electronically signed by MD Jorge England> 08/20/24 1042 [facility] Work Phone: 1(290) 350-462402-12-2025 Progress note Author Jorge England [facility] Note Date/Time August 20, 2024 10:40am [facility] [address] [place] [address] Infect. Disease Progress Note Signed Patient: Isaias Estrella MR#: [id number] : 2000 Acct:[id number] Age/Sex: 24 / M Adm Date: 5 Loc: 3T Room: [address] [place] [address] Type: ADM IN Attending Dr: Kanu Fry MD Copies to: ~ Date of Service: 08/19/2024 Subjective Interval history: Having a lot of discomfort in his right lower quadrant. He was however afebrileovernight Exam Physical Exam Vital Signs: Vital Signs Temp Pulse Resp BP Pulse Ox O2 Del Method 08/19/24 08:30 Room Air 08/19/24 07:48 98.1 F 75 16 131/84 98 Room Air 08/19/24 05:51 98 F 79 14 123/78 98 Room Air 08/19/24 04:00 Room Air 08/19/24 00:00 97.6 F 83 16 109/69 98 Room Air 08/19/24 00:00 Room Air 08/18/24 20:00 Room Air 08/18/24 20:00 98.5 F 75 16 143/89 H 97 Room Air 08/18/24 15:18 98.9 F 92 18 120/79 98 Room Air 08/18/24 13:09 97.7 F 85 18 124/82 96 Room Air Intake and Output 08/18/24 08/19/24 08/19/24 23:59 07:59 15:59 Intake Total 1600 / 3750 1999 Output Total 3005 / 4873 2320 / 2320 Balance -1405 / -1123 -320 / -320 Intake: Oral 1600 / 3750 1999 Output: Urine 2950 / 4800 2300 / 2300 Wound Drainage Site #1 Other: # Bowel Movements 1 0 Weight 76.9 kg Date of Last Bowel Movement 08/18/24 08/18/24 08/18/24 Patient Weight 08/19/24 23:59 Weight 76.9 kg Const General: cooperative and comfortable Nutritional Appearance: average body habitus HEENT Head: normal to inspection Mouth: oral mucosae normal Teeth and gingiva: dentition normal Eyes General: appearance normal, both eyes and all related structures Neck Neck: normal visual inspection Chest Chest palpation & inspection: normal inspection of the chest Resp Effort & Inspection: normal respiratory effort Cardio Palpation: normal PMI Rate: regular rate Rhythm: regular rhythm GI Inspection: abnormal to inspection (georges drain in RLQ) Palpation: soft and nontender Auscultation: normal bowel sounds Other: Drain in right lower quadrant but right lower quadrant surface of abdomen still quite tender and firm corresponding to her underlying fluid collection is. General: bimanual renal exam normal bilaterally Skin General: no rashes or lesions noted Neuro General: patient oriented x3 Extrem General: normal to inspection Objective Labs Labs: Laboratory Tests 08/15/24 08/16/24 08/17/24 12:31 08:00 13:40 C-Reactive Prot, Quant 31.5 H 31.0 H 27.0 H 08/18/24 08/19/24 06:22 05:48 C-Reactive Prot, Quant 25.4 H 24.3 H Microbiology Microbiology: Microbiology - Results from entire visit 08/15/24 15:06 Blood - Right Antecubital Blood Culture - Preliminary No Growth 3 Days 08/15/24 15:17 Blood - Right Forearm Blood Culture - Preliminary No Growth 3 Days 08/15/24 11:23 Abdomen - Abscess Aerobic Culture - Final Staphylococcus aureus 08/15/24 11:23 Abdomen - Abscess Anaerobic Culture - Final No Anaerobes Isolated 3 Days 08/15/24 11:23 Abdomen - Abscess Gram Stain - Final Allergies and Medications Allergies and Active Meds Allergies No Known Allergies Allergy (Verified 08/08/24 19:47) Active Medications Acetaminophen (Acetaminophen 500 Mg Tablet) 1,000 mg PO Q6HR PRN PRN Reason: Pain Scale 1 - 3 or fever Stop: 08/14/25 22:17 Last Admin: 08/19/24 08:29 Dose: 1,000 mg Cefazolin Sodium (Cefazolin 2 Gm/11 Ml Syringe) 2 gm IV-PUSH Q8H SANDI Last Admin: 08/19/24 08:29 Dose: 2 gm Dextrose (Dextrose 50% In Water 25 Gm/50 Ml Syringe) 0 gm IV-PUSH PRN PRN PRN Reason: Hypoglycemia Stop: 08/14/25 22:17 Glucose (Dextrose 40% Gel 15 Gm Tube) 0 gm PO PRN PRN PRN Reason: Hypoglycemia Stop: 08/14/25 22:17 Home Med (Home Meds Kept In Pharmacy) 1 each MISCELLANE PRN PRN PRN Reason: zz.Pharmacy Note Stop: 08/17/25 06:40 Hydromorphone HCl (Hydromorphone 1 Mg/Ml Syringe) 1 mg IV-PUSH Q2H PRN PRN Reason: Pain Scale 7 - 10 Last Admin: 08/19/24 08:33 Dose: 1 mg Insulin Aspart (Insulin Aspart 300 Units/3 Ml) 0 units SUBCUT TID.[facility]; Protocol Stop: 08/15/25 07:59 Last Admin: 08/19/24 08:32 Dose: 7 units Insulin Aspart (Insulin Aspart 300 Units/3 Ml) 0 units SUBCUT TID[facility]; Protocol Stop: 08/15/25 16:59 Last Admin: 08/19/24 09:38 Dose: 3 units Insulin Glargine (Insulin Glargine 300 Units/3 Ml Insuln.Pen) 45 units SUBCUT DAILY [facility] Stop: 08/19/25 08:59 Last Admin: 08/19/24 08:32 Dose: 45 units Naproxen (Naproxen 250 Mg Tablet) 250 mg PO TID.[facility] Stop: 08/16/25 11:59 Last Admin: 08/19/24 08:29 Dose: 250 mg Ondansetron HCl (Ondansetron 4 Mg/2 Ml Vial) 4 mg IV-PUSH Q6H PRN PRN Reason: Nausea And Vomiting Stop: 08/14/25 22:17 Oxycodone HCl (Oxycodone Ir 5 Mg Tablet) 10 mg PO Q4HR PRN PRN Reason: Pain Scale 4 - 7 Pantoprazole Sodium (Pantoprazole 40 Mg Tablet.Dr) 40 mg PO DAILY.[facility] Stop: 08/15/25 07:29 Last Admin: 08/19/24 08:29 Dose: 40 mg Sodium Chloride (Sodium Chloride 0.9 % 10 Ml Syringe) 0 ml IV-PUSH QSHIFT [facility] Stop: 08/15/25 05:59 Last Admin: 08/19/24 05:00 Dose: 10 ml Sodium Chloride (Sodium Chloride 0.9 % 10 Ml Syringe) 10 ml IV-PUSH PRN PRN PRN Reason: Flush Stop: 08/15/25 11:03 Last Admin: 08/19/24 00:30 Dose: 10 ml Sodium Chloride (Sodium Chloride 0.9 % 10 Ml Syringe) 0 ml IV-PUSH PRN PRN PRN Reason: Flush Stop: 08/17/25 12:52 Sterile Water (Water For Injection,Sterile 10 Ml Vial) 0 ml IRRIGATION QID [facility] Stop: 08/15/25 13:59 Last Admin: 08/19/24 08:32 Dose: 10 ml A&P - Infectious Disease Assessment/Plan (1) Abscess of right iliac fossa: Plan Likely he had no fevers overnight. GEORGES dropped continues to have output with purulent material. Patient's pain is right lower quadrant is still quite prominent. Fullness appreciated. Markers of inflammation very slowly downtrending. Continues on cefazolin. Documented By: Jorge England MD 08/19/24 1032 Signed By: <Electronically signed by MD Jorge England> 08/20/24 1040 [facility] Work Phone: 1(637) 281-424002-12-2025 [place] [id number] Infect. Disease Progress Note Signed Patient: Isaias Estrella MR#: [id number] : 2000 Acct:[id number] Age/Sex: 24 / M Adm Date: 5 Loc: Room: [address] [place] [address] Type: ADM IN Attending Dr: Kanu Fry MD Copies to: ~ Date of Service: 08/20/2024 Subjective Interval history: Last night when sleeping apparently rolled over and had acute onset of worseningpain in his right lower quadrant down to his leg. He GEORGES drain apparently stopped draining for a bit but is back to draining somewhat this morning. Stillhaving a lot of discomfort. No fevers or chills. Discussed with thehospitalist who apparently discussed with general surgeon and they felt it was best to transfer thepatient to tertiary care center. Exam Physical Exam Vital Signs: Temp Pulse Resp BP Pulse Ox O2 Del Method 98.5 F 102 H 18 105/69 95 Room Air 08/20/24 09:35 08/20/24 09:35 08/20/24 09:35 08/20/24 09:35 08/20/24 09:35 08/20/24 09:35 Const General: cooperative and comfortable Nutritional Appearance: average body habitus HEENT Head: normal to inspection Mouth: oral mucosae normal Teeth and gingiva: dentition normal Eyes General: appearance normal, both eyes and all related structures Neck Neck: normal visual inspection Chest Chest palpation & inspection: normal inspection of the chest Resp Effort & Inspection: normal respiratory effort Cardio Palpation: normal PMI Rate: regular rate Rhythm: regular rhythm GI Inspection: abnormal to inspection (georges drain in RLQ) Palpation: soft and nontender Auscultation: normal bowel sounds General: bimanual renal exam normal bilaterally Skin General: no rashes or lesions noted Neuro General: patient oriented x3 Extrem General: normal to inspection Objective Labs CBC/BMP: CBC, BMP 08/20/24 07:20 Corrected WBC 10.4 Uncorrected WBC Count 10.4 RBC 3.22 L Hgb 10.7 L Hct 30.4 L Plt Count 449 Sodium 138 Potassium 4.7 Chloride 101 Carbon Dioxide 32.6 H Anion Gap 9.1 BUN 15 Creatinine 0.67 L Calcium 9.4 Labs: 08/20/24 07:20 BUN 15 Creatinine 0.67 L Microbiology Microbiology: Microbiology - Results from entire visit 08/15/24 15:06 Blood - Right Antecubital Blood Culture - Preliminary No Growth 4 Days 08/15/24 15:17 Blood - Right Forearm Blood Culture - Preliminary No Growth 4 Days 08/15/24 11:23 Abdomen - Abscess Aerobic Culture - Final Staphylococcus aureus 08/15/24 11:23 Abdomen - Abscess Anaerobic Culture - Final No Anaerobes Isolated 3 Days 08/15/24 11:23 Abdomen - Abscess Gram Stain - Final Allergies and Medications Allergies and Active Meds Allergies No Known Allergies Allergy (Verified 08/08/24 19:47) Active Medications Acetaminophen (Acetaminophen 500 Mg Tablet) 1,000 mg PO Q6HR PRN PRN Reason: Pain Scale 1 - 3 or fever Stop: 08/14/25 22:17 Last Admin: 08/20/24 08:41 Dose: 1,000 mg Cefazolin Sodium (Cefazolin 2 Gm/11 Ml Syringe) 2 gm IV-PUSH Q8H [facility] Last Admin: 08/20/24 08:40 Dose: 2 gm Dextrose (Dextrose 50% In Water 25 Gm/50 Ml Syringe) 0 gm IV-PUSH PRN PRN PRN Reason: Hypoglycemia Stop: 08/14/25 22:17 Glucose (Dextrose 40% Gel 15 Gm Tube) 0 gm PO PRN PRN PRN Reason: Hypoglycemia Stop: 08/14/25 22:17 Home Med (Home Meds Kept In Pharmacy) 1 each MISCELLANE PRN PRN PRN Reason: alice.Pharmacy Note Stop: 08/17/25 06:40 Hydromorphone HCl (Hydromorphone 1 Mg/Ml Syringe) 1 mg IV-PUSH Q1H PRN PRN Reason: Pain Scale 7 - 10 Last Admin: 08/20/24 09:45 Dose: 1 mg Insulin Aspart (Insulin Aspart 300 Units/3 Ml) 0 units SUBCUT TID.[facility]; Protocol Stop: 08/15/25 07:59 Last Admin: 08/20/24 08:44 Dose: 4 units Insulin Aspart (Insulin Aspart 300 Units/3 Ml) 0 units SUBCUT TID.[facility]; Protocol Stop: 08/15/25 16:59 Last Admin: 08/20/24 09:46 Dose: Not Given Insulin Glargine (Insulin Glargine 300 Units/3 Ml Insuln.Pen) 55 units SUBCUT DAILY [facility] Stop: 08/20/25 08:59 Last Admin: 08/20/24 08:42 Dose: 55 units Naproxen (Naproxen 250 Mg Tablet) 250 mg PO TID.[facility] Stop: 08/16/25 11:59 Last Admin: 08/20/24 08:40 Dose: 250 mg Ondansetron HCl (Ondansetron 4 Mg/2 Ml Vial) 4 mg IV-PUSH Q6H PRN PRN Reason: Nausea And Vomiting Stop: 08/14/25 22:17 Oxycodone HCl (Oxycodone Ir 5 Mg Tablet) 10 mg PO Q4HR PRN PRN Reason: Pain Scale 4 - 7 Last Admin: 08/20/24 08:41 Dose: 10 mg Pantoprazole Sodium (Pantoprazole 40 Mg Tablet.Dr) 40 mg PO DAILY.[facility] Stop: 08/15/25 07:29 Last Admin: 08/20/24 08:40 Dose: 40 mg Polyethylene Glycol (Polyethylene Glycol 3350 17 Gm Powd.Pack) 17 gm PO DAILY PRN PRN Reason: Constipation Stop: 08/19/25 12:35 Senna/Docusate Sodium (Sennosides/Docusate 8.6-50mg 1 Tab Tablet) 2 tab PO BID PRN PRN Reason: constipation Stop: 08/19/25 20:59 Sodium Chloride (Sodium Chloride 0.9 % 10 Ml Syringe) 0 ml IV-PUSH QSHIFT [facility] Stop: 08/15/25 05:59 Last Admin: 08/20/24 05:53 Dose: 10 ml Sodium Chloride (Sodium Chloride 0.9 % 10 Ml Syringe) 10 ml IV-PUSH PRN PRN PRN Reason: Flush Stop: 08/15/25 11:03 Last Admin: 08/20/24 00:17 Dose: 10 ml Sodium Chloride (Sodium Chloride 0.9 % 10 Ml Syringe) 0 ml IV-PUSH PRN PRN PRN Reason: Flush Stop: 08/17/25 12:52 Sterile Water (Water For Injection,Sterile 10 Ml Vial) 0 ml IRRIGATION QID SANDI Stop: 08/15/25 13:59 Last Admin: 08/20/24 08:41 Dose: 10 ml A&P - Infectious Disease Assessment/Plan (1) Abscess of right iliac fossa: Plan Patient GEORGES drain is draining some more at this morning and apparently drained overnight. Patient have a lot of discomfort in his right lower quadrant still though. White count today is 10.4. Markers of inflammation not checked today. Transfer is going to be initiated. Continues on cefazolin therapy. If bed not can to be available and transfer delayed may need to consider another IR drainage insertion to alleviate pressure/discomfort/pocket Documented By: Jorge England MD 08/20/24 1040 Signed By: 08/20/24 1042 [facility]02-12-2025 [place] [id number] Infect. Disease Progress Note Signed Patient: Isaias Estrella MR#: [id number] : 2000 Acct:[id number] Age/Sex: 24 / M Adm Date: 5 Loc: Room: [address] [place] [address] Type: ADM IN Attending Dr: Kanu Fry MD Copies to: ~ Date of Service: 08/19/2024 Subjective Interval history: Having a lot of discomfort in his right lower quadrant. He was however afebrileovernight Exam Physical Exam Vital Signs: Vital Signs Temp Pulse Resp BP Pulse Ox O2 Del Method 08/19/24 08:30 Room Air 08/19/24 07:48 98.1 F 75 16 131/84 98 Room Air 08/19/24 05:51 98 F 79 14 123/78 98 Room Air 08/19/24 04:00 Room Air 08/19/24 00:00 97.6 F 83 16 109/69 98 Room Air 08/19/24 00:00 Room Air 08/18/24 20:00 Room Air 08/18/24 20:00 98.5 F 75 16 143/89 H 97 Room Air 08/18/24 15:18 98.9 F 92 18 120/79 98 Room Air 08/18/24 13:09 97.7 F 85 18 124/82 96 Room Air Intake and Output 08/18/24 08/19/24 08/19/24 23:59 07:59 15:59 Intake Total 1600 / 3750 1999 Output Total 3005 / 4873 2320 / 2320 Balance -1405 / -1123 -320 / -320 Intake: Oral 1600 / 3750 1999 Output: Urine 2950 / 4800 2300 / 2300 Wound Drainage Site #1 Other: # Bowel Movements 1 0 Weight 76.9 kg Date of Last Bowel Movement 08/18/24 08/18/24 08/18/24 Patient Weight 08/19/24 23:59 Weight 76.9 kg Const General: cooperative and comfortable Nutritional Appearance: average body habitus HEENT Head: normal to inspection Mouth: oral mucosae normal Teeth and gingiva: dentition normal Eyes General: appearance normal, both eyes and all related structures Neck Neck: normal visual inspection Chest Chest palpation & inspection: normal inspection of the chest Resp Effort & Inspection: normal respiratory effort Cardio Palpation: normal PMI Rate: regular rate Rhythm: regular rhythm GI Inspection: abnormal to inspection (georges drain in RLQ) Palpation: soft and nontender Auscultation: normal bowel sounds Other: Drain in right lower quadrant but right lower quadrant surface of abdomen still quite tender and firm corresponding to her underlying fluid collection is. General: bimanual renal exam normal bilaterally Skin General: no rashes or lesions noted Neuro General: patient oriented x3 Extrem General: normal to inspection Objective Labs Labs: Laboratory Tests 08/15/24 08/16/24 08/17/24 12:31 08:00 13:40 C-Reactive Prot, Quant 31.5 H 31.0 H 27.0 H 08/18/24 08/19/24 06:22 05:48 C-Reactive Prot, Quant 25.4 H 24.3 H Microbiology Microbiology: Microbiology - Results from entire visit 08/15/24 15:06 Blood - Right Antecubital Blood Culture - Preliminary No Growth 3 Days 08/15/24 15:17 Blood - Right Forearm Blood Culture - Preliminary No Growth 3 Days 08/15/24 11:23 Abdomen - Abscess Aerobic Culture - Final Staphylococcus aureus 08/15/24 11:23 Abdomen - Abscess Anaerobic Culture - Final No Anaerobes Isolated 3 Days 08/15/24 11:23 Abdomen - Abscess Gram Stain - Final Allergies and Medications Allergies and Active Meds Allergies No Known Allergies Allergy (Verified 08/08/24 19:47) Active Medications Acetaminophen (Acetaminophen 500 Mg Tablet) 1,000 mg PO Q6HR PRN PRN Reason: Pain Scale 1 - 3 or fever Stop: 08/14/25 22:17 Last Admin: 08/19/24 08:29 Dose: 1,000 mg Cefazolin Sodium (Cefazolin 2 Gm/11 Ml Syringe) 2 gm IV-PUSH Q8H SANDI Last Admin: 08/19/24 08:29 Dose: 2 gm Dextrose (Dextrose 50% In Water 25 Gm/50 Ml Syringe) 0 gm IV-PUSH PRN PRN PRN Reason: Hypoglycemia Stop: 08/14/25 22:17 Glucose (Dextrose 40% Gel 15 Gm Tube) 0 gm PO PRN PRN PRN Reason: Hypoglycemia Stop: 08/14/25 22:17 Home Med (Home Meds Kept In Pharmacy) 1 each MISCELLANE PRN PRN PRN Reason: zz.Pharmacy Note Stop: 08/17/25 06:40 Hydromorphone HCl (Hydromorphone 1 Mg/Ml Syringe) 1 mg IV-PUSH Q2H PRN PRN Reason: Pain Scale 7 - 10 Last Admin: 08/19/24 08:33 Dose: 1 mg Insulin Aspart (Insulin Aspart 300 Units/3 Ml) 0 units SUBCUT TID.[facility]; Protocol Stop: 08/15/25 07:59 Last Admin: 08/19/24 08:32 Dose: 7 units Insulin Aspart (Insulin Aspart 300 Units/3 Ml) 0 units SUBCUT TID.[facility]; Protocol Stop: 08/15/25 16:59 Last Admin: 08/19/24 09:38 Dose: 3 units Insulin Glargine (Insulin Glargine 300 Units/3 Ml Insuln.Pen) 45 units SUBCUT DAILY [facility] Stop: 08/19/25 08:59 Last Admin: 08/19/24 08:32 Dose: 45 units Naproxen (Naproxen 250 Mg Tablet) 250 mg PO TID.[facility] Stop: 08/16/25 11:59 Last Admin: 08/19/24 08:29 Dose: 250 mg Ondansetron HCl (Ondansetron 4 Mg/2 Ml Vial) 4 mg IV-PUSH Q6H PRN PRN Reason: Nausea And Vomiting Stop: 08/14/25 22:17 Oxycodone HCl (Oxycodone Ir 5 Mg Tablet) 10 mg PO Q4HR PRN PRN Reason: Pain Scale 4 - 7 Pantoprazole Sodium (Pantoprazole 40 Mg Tablet.) 40 mg PO DAILY.AC.[facility] Stop: 08/15/25 07:29 Last Admin: 08/19/24 08:29 Dose: 40 mg Sodium Chloride (Sodium Chloride 0.9 % 10 Ml Syringe) 0 ml IV-PUSH QSHIFT [facility]I Stop: 08/15/25 05:59 Last Admin: 08/19/24 05:00 Dose: 10 ml Sodium Chloride (Sodium Chloride 0.9 % 10 Ml Syringe) 10 ml IV-PUSH PRN PRN PRN Reason: Flush Stop: 08/15/25 11:03 Last Admin: 08/19/24 00:30 Dose: 10 ml Sodium Chloride (Sodium Chloride 0.9 % 10 Ml Syringe) 0 ml IV-PUSH PRN PRN PRN Reason: Flush Stop: 08/17/25 12:52 Sterile Water (Water For Injection,Sterile 10 Ml Vial) 0 ml IRRIGATION QID SANDI Stop: 08/15/25 13:59 Last Admin: 08/19/24 08:32 Dose: 10 ml A&P - Infectious Disease Assessment/Plan (1) Abscess of right iliac fossa: Plan Likely he had no fevers overnight. GEORGES dropped continues to have output with purulent material. Patient's pain is right lower quadrant is still quite prominent. Fullness appreciated. Markers of inflammation very slowly downtrending. Continues on cefazolin. Documented By: Jorge England MD 08/19/24 1032 Signed By: 08/20/24 1040 [facility]02-12-2025 Radiology Diagnostic study note [facility] [place] [address] [place], [place] [id number] CT Scan Report Signed Patient: Isaias Estrella MR#: [id number] : 2000 Acct:[id number] Age/Sex: 24 / M ADM Date: 5 Loc: 3T Room: 1T2116-4 Type: ADM IN Attending Dr: Kanu Fry MD Copies to: MD Sixto Mckay DO~ Ordering Provider: Sixto Pak DO Date of Service: 08/20/24 CT/CT abdomen pelvis w con: abd pain CT ABDOMEN AND PELVIS WITH INTRAVENOUS CONTRAST: CLINICAL HISTORY: Abdominal pain/right lower quadrant upper right groin. Recent abscess drain. COMPARISON: CT pelvis 08/17/2024. TECHNIQUE: Spiral images were obtained through the abdomen and pelvis followingthe administration of intravenous contrast. This CT exam was performed using one or more following dose reduction techniques: Automated exposure control, adjustment of the mA and/or kV according to patient size, or use of iterative reconstruction technique. FINDINGS: Lung Bases: [Trace bilateral pleural effusions with bibasilar atelectasis. Bilateral lower lobe pulmonary nodules largest measuring 6 mm left lower lobe series 3 image 6.] Organs:Liver gallbladder portal vein spleen pancreas adrenal glands kidneys and aorta all appear unremarkable.[ GI: Stomach is grossly unremarkable. Small bowel appears nondilated. No acute colonic abnormality is seen.[ Pelvis:[A pigtail catheter is seen situated within the patient's known loculated right iliac muscleabscess. The abscess size is grossly unchanged from the prior CT pelvis study measuring 7.1 x 6.8 cm in greatest axial dimension given differences in measuring technique]. Urinary bladder and prostate gland appear unremarkable. Peritoneum/Retroperitoneum:Small amount of free fluid seen within the pelvis. No free air. No lymphadenopathy.[ Abd wall/Bones:Body wall anasarca. Osseous structures demonstrate no acute findings.[ CT/CT abdomen pelvis w con IMPRESSION: 1. Evidence of fluid overload with trace bilateral pleural effusions, small amount of free fluid seen within the pelvis as well as body wall anasarca. 2. A pigtail catheter is once again demonstrated in the patient's known loculated right iliac muscle abscess. The abscess is grossly unchanged in size when compared to the prior CT pelvis study. 3. Bilateral lower lobe pulmonary nodules largest measuring 6 mm left lower lobe. Complete evaluation with CT chest is suggested. Impression dictated by: Jhon Bhardwaj Jr. D.OMatilde08/20/2024 9:30 AM Dictation Location: [place] [address] Transcribed By: APRIL 08/20/24929 Dictated By: Jhon Bhardwaj Jr, 08/20/2406 Signed By: 08/20/2430 [facility]02-12-2025 Progress note Author Sixto Pak [facility] Note Date/Time August 20, 2024 5:36am [facility] [address] [place] [address] Event Note Signed Patient: Isaias Estrella MR#: [id number] : 2000 Acct:[id number] Age/Sex: 24 / M Adm Date: 5 Loc: 3T Room: [address] [place] [address] Type: ADM IN Attending Dr: Kanu Fry MD Copies to: Kanu Fry MD FAMILY PHYSICIAN Sixto Pak DO~ Rapid Response Note Event Date & Type Date of Event: 08/20/24 Time of Event: 03:20 Event Type: MET Event Details 320 overhead MET was called, upon arrival to the room the patient was sitting inbed and hunched forward she is screaming in excruciating pain. Bedside RN stated that he was sleeping soundly on fairly comfortable most of the night and suddenly woke up in agonizing pain. He did receive 1 mg of Dilaudid x 3 doses, 30 mg of Toradol, and 5 mg of Valium IV push. Chart was reviewed, patient here for psoas abscess status post drain placement. Stat CT abdomen pelvis with contrast was ordered. Results undefinedshow poor drainage by the catheter as the abscess does appear unchanged on prior images. Physical Examination Patient in moderate amount of distress, he is hunched forward and rocking back in bed and his legs and arms are twitching. After the pain medication was administered we were able to lay him back in bed with head of bed elevated, his right leg was flexed up a little bit. Abdomen was nontender in the left side however on the right side there was tenderness to palpation and he had a lot of guarding. Did not appear to be an acute abdomen this point in time. There was some active bleeding around the insertion site from the drain, drain contents contain purulent material with blood in the tubing. Critical Care Time Time with patient (# mins): 35 Documented By: Sixto Pak DO 08/20/24 0342 Signed By: <Electronically signed by Sixto Pak DO> 08/20/24 36 [facility] Work Phone: 1(607) 219-430202-12-[address] [address] Event Note Signed Patient: Isaias Estrella MR#: [id number] : 2000 Acct:[id number] Age/Sex: 24 / M Adm Date: 5 Loc: Room: [address] [place] [address] Type: ADM IN Attending Dr: Kanu Fry MD Copies to: Kanu Fry MD NO FAMILY PHYSICIAN Sixto Pak DO~ Rapid Response Note Event Date & Type Date of Event: 08/20/24 Time of Event: 03:20 Event Type: MET Event Details 320 overhead MET was called, upon arrival to the room the patient was sitting inbed and hunched forward she is screaming in excruciating pain. Bedside RN stated that he was sleeping soundly on fairlycomfortable most of the night and suddenly woke up in agonizing pain. He did receive 1 mg of Dilaudid x 3 doses, 30 mg of Toradol, and 5 mg of Valium IV push. Chart was reviewed, patient here for psoas abscess status post drain placement. Stat CT abdomen pelvis with contrast was ordered. Results undefinedshow poor drainage by the catheter as the abscess does appear unchanged on prior images. Physical Examination Patient in moderate amount of distress, he is hunched forward and rocking back in bed and his legs and arms are twitching. After the pain medication was administered we were able to lay him back in bed with head of bed elevated, his right leg was flexed up a little bit. Abdomen was nontender in theleft side however on the right side there was tenderness to palpation and he had a lot of guarding.Did not appear to be an acute abdomen this point in time. There was some active bleeding around theinsertion site from the drain, drain contents contain purulent material with blood in the tubing. Critical Care Time Time with patient (# mins): 35 Documented By: Sixto Pak DO 08/20/24 0342 Signed By: 08/20/24 36 [facility]02-11-2025 Progress note Author Kanu Fry [facility] Note Date/Time August 19, 2024 12:36pm [facility] [address] [place] [address] Hospitalist Progress Note Signed Patient: Isaias Estrella MR#: [id number] : 2000 Acct:[id number] Age/Sex: 24 / M Adm Date: 5 Loc: Room: [address] [place] [address] Type: ADM IN Attending Dr: Kanu Fry MD Copies to: ~ Date of Service: 08/19/2024 Subjective Subjective Narrative: Attending note: I saw the patient personally on the day of encounter. I reviewed the relevant history, and performed the barkley elements of the physical examination. I reviewedthe relevant laboratory workup, radiological studies and the current treatment plan. I formulated the plan of care and confirmed it with the resident/student/MUSIC INSTRUCTOR. Patient afebrile last night but was diaphoretic, which he attributes to Dilaudid. He states his RLQ pain is a 10/10 at baseline while laying in bed, drops to a 5- 6/10 when walking initially and increases with further movement. He states that the Dilaudid helps with the pain for 30-45 minutes, and 1.5 hourswhen used with Oxycodone or Tylenol. Continued output of purulent fluid from drain. Exam Physical Exam Vital Signs: Temp Pulse Resp BP Pulse Ox O2 Del Method 98.1 F 75 16 131/84 98 Room Air 08/19/24 07:48 08/19/24 07:48 08/19/24 07:48 08/19/24 07:48 08/19/24 07:48 08/19/24 07:48 Narrative: GENERAL: No acute distress, alert, oriented, appears stated age HEENT: NC/AT, EOMI, PERRL, conjunctiva clear CARDIOVASCULAR: Regular rate and regular rhythm, no murmurs/rubs/gallops RESPIRATORY: nonlabored work of breathing CTAB, symmetric chest rise, no wheezes/rales/rhonchi ABDOMEN: GEORGES drain present and outputting. Firm tissue palpated RLQ. EXTREMITIES: Well-perfused, no edema SKIN: Intact, no rash, no trauma NEURO: Cranial nerves grossly intact, no focal neurologic signs PSYCHIATRIC: Good eye contact, appropriate mood and affect, cooperative Objective Lab Results 08/18/24 06:22 08/17/24 13:40 Microbiology Results Microbiology 08/15/24 15:06 Blood - Right Antecubital Blood Culture - Preliminary No Growth 3 Days 08/15/24 15:17 Blood - Right Forearm Blood Culture - Preliminary No Growth 3 Days 08/15/24 11:23 Abdomen - Abscess Aerobic Culture - Final Staphylococcus aureus 08/15/24 11:23 Abdomen - Abscess Anaerobic Culture - Final No Anaerobes Isolated 3 Days 08/15/24 11:23 Abdomen - Abscess Gram Stain - Final Meds Allergies and Active Meds Allergies No Known Allergies Allergy (Verified 08/08/24 19:47) Active Meds: Active Medications Generic Name Dose Route Start Last Admin Trade Name Freq PRN Reason Stop Dose Admin Acetaminophen 1,000 mg 08/14/24 22:18 08/19/24 08:29 Acetaminophen 500 Mg Tablet PO 08/14/25 22:17 1,000 mg Q6HR PRN Administration Pain Scale 1 - 3 or fever Cefazolin Sodium 2 gm 08/18/24 00:00 08/19/24 08:29 Cefazolin 2 Gm/11 Ml Syringe IV-PUSH 2 gm Q8H SANDI Administration Dextrose 0 gm 08/14/24 22:18 Dextrose 50% In Water 25 Gm/50 Ml Syringe IV-PUSH 08/14/25 22:17 PRN PRN Hypoglycemia Glucose 0 gm 08/14/24 22:18 Dextrose 40% Gel 15 Gm Tube PO 08/14/25 22:17 PRN PRN Hypoglycemia Home Med 1 each 08/17/24 06:41 Home Meds Kept In Pharmacy [facility] 08/17/25 06:40 PRN PRN zz.Pharmacy Note Hydromorphone HCl 1 mg 08/18/24 09:52 08/19/24 08:33 Hydromorphone 1 Mg/Ml Syringe IV-PUSH 1 mg Q2H PRN Administration Pain Scale 7 - 10 Insulin Aspart 0 units 08/15/24 08:00 08/19/24 08:32 Insulin Aspart 300 Units/3 Ml SUBCUT 08/15/25 07:59 7 units TID.WM.HS SANDI Administration Protocol Insulin Aspart 0 units 08/15/24 17:00 08/18/24 18:22 Insulin Aspart 300 Units/3 Ml SUBCUT 08/15/25 16:59 4 units TID.WITH.MEALS SANDI Administration Protocol Insulin Glargine 45 units 08/19/24 09:00 08/19/24 08:32 Insulin Glargine 300 Units/3 Ml Insuln.Pen SUBCUT 08/19/25 08:59 45 units DAILY SANDI Administration Naproxen 250 mg 08/16/24 12:00 08/19/24 08:29 Naproxen 250 Mg Tablet PO 08/16/25 11:59 250 mg TID.WITH.MEALS SANDI Administration Ondansetron HCl 4 mg 08/14/24 22:18 Ondansetron 4 Mg/2 Ml Vial IV-PUSH 08/14/25 22:17 Q6H PRN Nausea And Vomiting Oxycodone HCl 5 mg 08/14/24 22:47 08/19/24 05:00 Oxycodone Ir 5 Mg Tablet PO 5 mg Q4HR PRN Administration Pain Scale 4 - 7 Pantoprazole Sodium 40 mg 08/15/24 07:30 08/19/24 08:29 Pantoprazole 40 Mg Tablet. PO 08/15/25 07:29 40 mg DAILY.AC.BKFAST SANDI Administration Sodium Chloride 0 ml 08/15/24 06:00 08/19/24 05:00 Sodium Chloride 0.9 % 10 Ml Syringe IV-PUSH 08/15/25 05:59 10 ml QSHIFT SANDI Administration Sodium Chloride 10 ml 08/15/24 11:04 08/19/24 00:30 Sodium Chloride 0.9 % 10 Ml Syringe IV-PUSH 08/15/25 11:03 10 ml PRN PRN Administration Flush Sodium Chloride 0 ml 08/17/24 12:53 Sodium Chloride 0.9 % 10 Ml Syringe IV-PUSH 08/17/25 12:52 PRN PRN Flush Sterile Water 0 ml 08/15/24 14:00 08/19/24 08:32 Water For Injection,Sterile 10 Ml Vial IRRIGATION 08/15/25 13:59 10 ml QID SANDI Administration A&P - Hospitalist Assessment/Plan (1) Abscess of right iliac fossa: (2) Type 1 diabetes mellitus: Plan Patient is a 24 year old male with T1DM with abscess of right iliac fossa transferred here from [facility]. 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 CT abdomen pelvis w con ([facility]) Prominent low-attenuation collectionwithin the right iliac (The central portion of the collection measures approximately 7.1 x 4 x 12.5 cm. This extends inferiorly to the insertion of theproximal right femur) CT pelvis 08/17: There is a pigtail catheter within a heterogeneous collection along the right iliac muscle. This collection is slightly smaller measuring 5.3x 8.8 x 4.7 cm in greatest dimension. CT guided drain by GEORGES MCLEOD drain continues output Culture positive for MSSA ID following, patient is on cefazolin PT consulted May require surgical evaluation if symptoms persist/becomes febrile. CRP continues to decrease Increased Oxycodone 10mg Q4H PRN T1DM A1c 13.2 on 07/31/24 Uncontrolled, glucose remains >300 for multiple readings. Lantus changed to 45 units starting 08/19 Carb coverage changed from 1:15 to 1:10 DVT Prophylaxis: SCDs Documented By: Kanu Fry MD 08/19/24 0900 Signed By: <Electronically signed by Kanu Fry MD> 08/19/24 1236 <Electronically signed by DO MERARY Clements> 08/19/24 1043 [facility] Work Phone: 1(720) 758-665202-11-[address] [address] Hospitalist Progress Note Signed Patient: Isaias Estrella MR#: [id number] : 2000 Acct:[id number] Age/Sex: 24 / M Adm Date: 5 Loc: 3T Room: 2P6369-0 Type: ADM IN Attending Dr: Kanu Fry MD Copies to: ~ Date of Service: 08/19/2024 Subjective Subjective Narrative: Attending note: I saw the patient personally on the day of encounter. I reviewed the relevant history, and performed the barkley elements of the physical examination. I reviewedthe relevant laboratory workup, radiological studies and the current treatment plan. I formulated the plan of care and confirmed it with the re sident/student/MUSIC INSTRUCTOR. Patient afebrile last night but was diaphoretic, which he attributes to Dilaudid. He states his RLQpain is a 10/10 at baseline while laying in bed, drops to a 5-6/10 when walking initially and increases with further movement. He states that the Dilaudid helps with the pain for 30-45 minutes, and 1.5 hourswhen used with Oxycodone or Tylenol. Continued output of purulent fluid from drain. Exam Physical Exam Vital Signs: Temp Pulse Resp BP Pulse Ox O2 Del Method 98.1 F 75 16 131/84 98 Room Air 08/19/24 07:48 08/19/24 07:48 08/19/24 07:48 08/19/24 07:48 08/19/24 07:48 08/19/24 07:48 Narrative: GENERAL: No acute distress, alert, oriented, appears stated age HEENT: NC/AT, EOMI, PERRL, conjunctiva clear CARDIOVASCULAR: Regular rate and regular rhythm, no murmurs/rubs/gallops RESPIRATORY: nonlabored work of breathing CTAB, symmetric chest rise, no wheezes/rales/rhonchi ABDOMEN: GEORGES drain present and outputting. Firm tissue palpated RLQ. EXTREMITIES: Well-perfused, no edema SKIN: Intact, no rash, no trauma NEURO: Cranial nerves grossly intact, no focal neurologic signs PSYCHIATRIC: Good eye contact, appropriate mood and affect, cooperative Objective Lab Results 08/18/24 06:22 08/17/24 13:40 Microbiology Results Microbiology 08/15/24 15:06 Blood - Right Antecubital Blood Culture - Preliminary No Growth 3 Days 08/15/24 15:17 Blood - Right Forearm Blood Culture - Preliminary No Growth 3 Days 08/15/24 11:23 Abdomen - Abscess Aerobic Culture - Final Staphylococcus aureus 08/15/24 11:23 Abdomen - Abscess Anaerobic Culture - Final No Anaerobes Isolated 3 Days 08/15/24 11:23 Abdomen - Abscess Gram Stain - Final Meds Allergies and Active Meds Allergies No Known Allergies Allergy (Verified 08/08/24 19:47) Active Meds: Active Medications Generic Name Dose Route Start Last Admin Trade Name Freq PRN Reason Stop Dose Admin Acetaminophen 1,000 mg 08/14/24 22:18 08/19/24 08:29 Acetaminophen 500 Mg Tablet PO 08/14/25 22:17 1,000 mg Q6HR PRN Administration Pain Scale 1 - 3 or fever Cefazolin Sodium 2 gm 08/18/24 00:00 08/19/24 08:29 Cefazolin 2 Gm/11 Ml Syringe IV-PUSH 2 gm Q8H SANDI Administration Dextrose 0 gm 08/14/24 22:18 Dextrose 50% In Water 25 Gm/50 Ml Syringe IV-PUSH 08/14/25 22:17 PRN PRN Hypoglycemia Glucose 0 gm 08/14/24 22:18 Dextrose 40% Gel 15 Gm Tube PO 08/14/25 22:17 PRN PRN Hypoglycemia Home Med 1 each 08/17/24 06:41 Home Meds Kept In Pharmacy MISCELLANE 08/17/25 06:40 PRN PRN zz.Pharmacy Note Hydromorphone HCl 1 mg 08/18/24 09:52 08/19/24 08:33 Hydromorphone 1 Mg/Ml Syringe IV-PUSH 1 mg Q2H PRN Administration Pain Scale 7 - 10 Insulin Aspart 0 units 08/15/24 08:00 08/19/24 08:32 Insulin Aspart 300 Units/3 Ml SUBCUT 08/15/25 07:59 7 units TID.WM.HS SANDI Administration Protocol Insulin Aspart 0 units 08/15/24 17:00 08/18/24 18:22 Insulin Aspart 300 Units/3 Ml SUBCUT 08/15/25 16:59 4 units TID.WITH.MEALS SANDI Administration Protocol Insulin Glargine 45 units 08/19/24 09:00 08/19/24 08:32 Insulin Glargine 300 Units/3 Ml Insuln.Pen SUBCUT 08/19/25 08:59 45 units DAILY SANDI Administration Naproxen 250 mg 08/16/24 12:00 08/19/24 08:29 Naproxen 250 Mg Tablet PO 08/16/25 11:59 250 mg TID.WITH.MEALS SANDI Administration Ondansetron HCl 4 mg 08/14/24 22:18 Ondansetron 4 Mg/2 Ml Vial IV-PUSH 08/14/25 22:17 Q6H PRN Nausea And Vomiting Oxycodone HCl 5 mg 08/14/24 22:47 08/19/24 05:00 Oxycodone Ir 5 Mg Tablet PO 5 mg Q4HR PRN Administration Pain Scale 4 - 7 Pantoprazole Sodium 40 mg 08/15/24 07:30 08/19/24 08:29 Pantoprazole 40 Mg Tablet. PO 08/15/25 07:29 40 mg DAILY.AC.BKFAST SANDI Administration Sodium Chloride 0 ml 08/15/24 06:00 08/19/24 05:00 Sodium Chloride 0.9 % 10 Ml Syringe IV-PUSH 08/15/25 05:59 10 ml QSHIFT SANDI Administration Sodium Chloride 10 ml 08/15/24 11:04 08/19/24 00:30 Sodium Chloride 0.9 % 10 Ml Syringe IV-PUSH 08/15/25 11:03 10 ml PRN PRN Administration Flush Sodium Chloride 0 ml 08/17/24 12:53 Sodium Chloride 0.9 % 10 Ml Syringe IV-PUSH 08/17/25 12:52 PRN PRN Flush Sterile Water 0 ml 08/15/24 14:00 08/19/24 08:32 Water For Injection,Sterile 10 Ml Vial IRRIGATION 08/15/25 13:59 10 ml QID SANDI Administration A&P - Hospitalist Assessment/Plan (1) Abscess of right iliac fossa: (2) Type 1 diabetes mellitus: Plan Patient is a 24 year old male with T1DM with abscess of right iliac fossa transferred here from [facility]. Abscess of right iliac fossa CT lumbar spine wo con ([facility]) 2 At L5-S1, grade 1 spondylolysis spondylolisthesis ofL5 on S1 with mild stenosis of the right neural foramen. CT abdomen pelvis w con ([facility]) Prominent low-attenuation collectionwithin the right iliac (The central portion of the collection measures approximately 7.1 x 4 x 12.5 cm. This extends inferiorly to the insertion of theproximal right femur) CT pelvis 08/17: There is a pigtail catheter within a heterogeneous collection along the right iliac muscle. This collection is slightly smaller measuring 5.3x 8.8 x 4.7 cm in greatest dimension. CT guided drain by GEORGES MCLEOD drain continues output Culture positive for MSSA ID following, patient is on cefazolin PT consulted May require surgical evaluation if symptoms persist/becomes febrile. CRP continues to decrease Increased Oxycodone 10mg Q4H PRN T1DM A1c 13.2 on 07/31/24 Uncontrolled, glucose remains >300 for multiple readings. Lantus changed to 45 units starting 08/19 Carb coverage changed from 1:15 to 1:10 DVT Prophylaxis: SCDs Documented By: Kanu Fry MD 08/19/24 0900 Signed By: 08/19/24 1236 08/19/24 1043 [facility]02-10-2025 Progress note Author Kanu Fry [facility] Note Date/Time August 18, 2024 5:30pm [facility] [address] [place] [address] Hospitalist Progress Note Signed Patient: Isaias Estrella MR#: [id number] : 2000 Acct:[id number] Age/Sex: 24 / M Adm Date: 5 Loc: 3T Room: [address] [place] [address] Type: ADM IN Attending Dr: Kanu Fry MD Copies to: ~ Date of Service: 08/18/2024 Subjective Subjective Narrative: Attending note: I saw the patient personally on the day of encounter. I reviewed the relevant history, and performed the barkley elements of the physical examination. I reviewedthe relevant laboratory workup, radiological studies and the current treatment plan. I formulated the plan of care and confirmed it with the resident/student/MUSIC INSTRUCTOR. 101.3 fever last night, patient reports his pain is relatively well controlled, but does note some discomfort. Exam Physical Exam Vital Signs: Temp Pulse Resp BP Pulse Ox O2 Del Method 98.9 F 92 18 120/79 98 Room Air 08/18/24 15:18 08/18/24 15:18 08/18/24 15:18 08/18/24 15:18 08/18/24 15:18 08/18/24 15:18 Narrative: GENERAL: No apparent distress, alert, oriented, appears stated age HEENT: NC/AT, EOMI, PERRL, conjunctiva clear CARDIOVASCULAR: Regular rate and regular rhythm, no murmurs/rubs/gallops RESPIRATORY: nonlabored work of breathing CTAB, symmetric chest rise, no wheezes/rales/rhonchi ABDOMEN: GEORGES drain present and outputting EXTREMITIES: Well-perfused, no edema SKIN: Intact, no rash, no trauma NEURO: Cranial nerves grossly intact, no focal neurologic signs PSYCHIATRIC: Good eye contact, appropriate mood and affect, cooperative Objective Lab Results 08/18/24 06:22 08/17/24 13:40 Microbiology Results Microbiology 08/15/24 15:06 Blood - Right Antecubital Blood Culture - Preliminary No Growth 3 Days 08/15/24 15:17 Blood - Right Forearm Blood Culture - Preliminary No Growth 3 Days 08/15/24 11:23 Abdomen - Abscess Aerobic Culture - Final Staphylococcus aureus 08/15/24 11:23 Abdomen - Abscess Anaerobic Culture - Final No Anaerobes Isolated 3 Days 08/15/24 11:23 Abdomen - Abscess Gram Stain - Final Meds Allergies and Active Meds Allergies No Known Allergies Allergy (Verified 08/08/24 19:47) Active Meds: Active Medications Generic Name Dose Route Start Last Admin Trade Name Freq PRN Reason Stop Dose Admin Acetaminophen 1,000 mg 08/14/24 22:18 08/18/24 15:19 Acetaminophen 500 Mg Tablet PO 08/14/25 22:17 1,000 mg Q6HR PRN Administration Pain Scale 1 - 3 or fever Cefazolin Sodium 2 gm 08/18/24 00:00 08/18/24 08:05 Cefazolin 2 Gm/11 Ml Syringe IV-PUSH 2 gm Q8H SANDI Administration Dextrose 0 gm 08/14/24 22:18 Dextrose 50% In Water 25 Gm/50 Ml Syringe IV-PUSH 08/14/25 22:17 PRN PRN Hypoglycemia Glucose 0 gm 08/14/24 22:18 Dextrose 40% Gel 15 Gm Tube PO 08/14/25 22:17 PRN PRN Hypoglycemia Home Med 1 each 08/17/24 06:41 Home Meds Kept In Pharmacy MISCELLANE 08/17/25 06:40 PRN PRN zz.Pharmacy Note Hydromorphone HCl 1 mg 08/18/24 09:52 08/18/24 15:19 Hydromorphone 1 Mg/Ml Syringe IV-PUSH 1 mg Q2H PRN Administration Pain Scale 7 - 10 Insulin Aspart 0 units 08/15/24 08:00 08/18/24 13:18 Insulin Aspart 300 Units/3 Ml SUBCUT 08/15/25 07:59 7 units TID.WM.[facility] Administration Protocol Insulin Aspart 0 units 08/15/24 17:00 08/18/24 13:17 Insulin Aspart 300 Units/3 Ml SUBCUT 08/15/25 16:59 5 units TID.WITH.[facility] Administration Protocol Insulin Glargine 45 units 08/19/24 09:00 Insulin Glargine 300 Units/3 Ml Insuln.Pen SUBCUT 08/19/25 08:59 DAILY SANDI Naproxen 250 mg 08/16/24 12:00 08/18/24 13:18 Naproxen 250 Mg Tablet PO 08/16/25 11:59 250 mg TID.WITH.[facility] Administration Ondansetron HCl 4 mg 08/14/24 22:18 Ondansetron 4 Mg/2 Ml Vial IV-PUSH 08/14/25 22:17 Q6H PRN Nausea And Vomiting Oxycodone HCl 5 mg 08/14/24 22:47 08/18/24 08:05 Oxycodone Ir 5 Mg Tablet PO 5 mg Q4HR PRN Administration Pain Scale 4 - 7 Pantoprazole Sodium 40 mg 08/15/24 07:30 08/18/24 06:40 Pantoprazole 40 Mg Tablet. PO 08/15/25 07:29 40 mg DAILY.AC.BKFAST SANDI Administration Sodium Chloride 0 ml 08/15/24 06:00 08/18/24 13:23 Sodium Chloride 0.9 % 10 Ml Syringe IV-PUSH 08/15/25 05:59 Not Given QSHIFT SANDI Sodium Chloride 10 ml 08/15/24 11:04 08/18/24 15:20 Sodium Chloride 0.9 % 10 Ml Syringe IV-PUSH 08/15/25 11:03 10 ml PRN PRN Administration Flush Sodium Chloride 0 ml 08/17/24 12:53 Sodium Chloride 0.9 % 10 Ml Syringe IV-PUSH 08/17/25 12:52 PRN PRN Flush Sterile Water 0 ml 08/15/24 14:00 08/18/24 13:19 Water For Injection,Sterile 10 Ml Vial IRRIGATION 08/15/25 13:59 10 ml QID SANDI Administration A&P - Hospitalist Assessment/Plan (1) Abscess of right iliac fossa: (2) Type 1 diabetes mellitus: Plan Patient is a 24 year old male with T1DM with abscess of right iliac fossa transferred here from [facility]. 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 CT abdomen pelvis w con ([facility]) Prominent low-attenuation collectionwithin the right iliac (The central portion of the collection measures approximately 7.1 x 4 x 12.5 cm. This extends inferiorly to the insertion of theproximal right femur) CT pelvis 08/17: There is a pigtail catheter within a heterogeneous collection along the right iliac muscle. This collection is slightly smaller measuring 5.3x 8.8 x 4.7 cm in greatest dimension. CT guided drain by GEORGES MCLEOD drain continues output Culture positive for MSSA ID following, patient is on cefazolin Dilaudid 1mg IV switched to Q2H PRN PT consulted May require surgical evaluation if symptoms persist/becomes febrile. T1DM A1c 13.2 on 07/31/24 Uncontrolled, glucose remains >300 for multiple readings. Lantus changed to 45 units starting 08/19 Morning Lantus administered already, 1 time 15 unit ordered today. DVT Prophylaxis: SCDs Documented By: Kanu Fry MD 08/18/24 1531 Signed By: <Electronically signed by Kanu Fry MD> 08/18/24 1730 <Electronically signed by DO MERARY Clements> 08/18/24 1556 [facility] Work Phone: [phone]) 872-422302-10-2025 [place] [id number] Hospitalist Progress Note Signed Patient: Isaias Estrella MR#: [id number] : 2000 Acct:[id number] Age/Sex: 24 / M Adm Date: 5 Loc: Room: [address] [place] [address] Type: ADM IN Attending Dr: Kanu Fry MD Copies to: ~ Date of Service: 08/18/2024 Subjective Subjective Narrative: Attending note: I saw the patient personally on the day of encounter. I reviewed the relevant history, and performed the barkley elements of the physical examination. I reviewedthe relevant laboratory workup, radiological studies and the current treatment plan. I formulated the plan of care and confirmed it with the re sident/student/MUSIC INSTRUCTOR. 101.3 fever last night, patient reports his pain is relatively well controlled, but does note some discomfort. Exam Physical Exam Vital Signs: Temp Pulse Resp BP Pulse Ox O2 Del Method 98.9 F 92 18 120/79 98 Room Air 08/18/24 15:18 08/18/24 15:18 08/18/24 15:18 08/18/24 15:18 08/18/24 15:18 08/18/24 15:18 Narrative: GENERAL: No apparent distress, alert, oriented, appears stated age HEENT: NC/AT, EOMI, PERRL, conjunctiva clear CARDIOVASCULAR: Regular rate and regular rhythm, no murmurs/rubs/gallops RESPIRATORY: nonlabored work of breathing CTAB, symmetric chest rise, no wheezes/rales/rhonchi ABDOMEN: GEORGES drain present and outputting EXTREMITIES: Well-perfused, no edema SKIN: Intact, no rash, no trauma NEURO: Cranial nerves grossly intact, no focal neurologic signs PSYCHIATRIC: Good eye contact, appropriate mood and affect, cooperative Objective Lab Results 08/18/24 06:22 08/17/24 13:40 Microbiology Results Microbiology 08/15/24 15:06 Blood - Right Antecubital Blood Culture - Preliminary No Growth 3 Days 08/15/24 15:17 Blood - Right Forearm Blood Culture - Preliminary No Growth 3 Days 08/15/24 11:23 Abdomen - Abscess Aerobic Culture - Final Staphylococcus aureus 08/15/24 11:23 Abdomen - Abscess Anaerobic Culture - Final No Anaerobes Isolated 3 Days 08/15/24 11:23 Abdomen - Abscess Gram Stain - Final Meds Allergies and Active Meds Allergies No Known Allergies Allergy (Verified 08/08/24 19:47) Active Meds: Active Medications Generic Name Dose Route Start Last Admin Trade Name Freq PRN Reason Stop Dose Admin Acetaminophen 1,000 mg 08/14/24 22:18 08/18/24 15:19 Acetaminophen 500 Mg Tablet PO 08/14/25 22:17 1,000 mg Q6HR PRN Administration Pain Scale 1 - 3 or fever Cefazolin Sodium 2 gm 08/18/24 00:00 08/18/24 08:05 Cefazolin 2 Gm/11 Ml Syringe IV-PUSH 2 gm Q8H SANDI Administration Dextrose 0 gm 08/14/24 22:18 Dextrose 50% In Water 25 Gm/50 Ml Syringe IV-PUSH 08/14/25 22:17 PRN PRN Hypoglycemia Glucose 0 gm 08/14/24 22:18 Dextrose 40% Gel 15 Gm Tube PO 08/14/25 22:17 PRN PRN Hypoglycemia Home Med 1 each 08/17/24 06:41 [facility] Med[facility] 08/17/25 06:40 PRN PRN zz.Pharmacy Note Hydromorphone HCl 1 mg 08/18/24 09:52 08/18/24 15:19 Hydromorphone 1 Mg/Ml Syringe IV-PUSH 1 mg Q2H PRN Administration Pain Scale 7 - 10 Insulin Aspart 0 units 08/15/24 08:00 08/18/24 13:18 Insulin Aspart 300 Units/3 Ml SUBCUT 08/15/25 07:59 7 units TID.WM.HS SANDI Administration Protocol Insulin Aspart 0 units 08/15/24 17:00 08/18/24 13:17 Insulin Aspart 300 Units/3 Ml SUBCUT 08/15/25 16:59 5 units TID.WITH.MEALS SANDI Administration Protocol Insulin Glargine 45 units 08/19/24 09:00 Insulin Glargine 300 Units/3 Ml Insuln.Pen SUBCUT 08/19/25 08:59 DAILY SANDI Naproxen 250 mg 08/16/24 12:00 08/18/24 13:18 Naproxen 250 Mg Tablet PO 08/16/25 11:59 250 mg TID.WITH.MEALS SANDI Administration Ondansetron HCl 4 mg 08/14/24 22:18 Ondansetron 4 Mg/2 Ml Vial IV-PUSH 08/14/25 22:17 Q6H PRN Nausea And Vomiting Oxycodone HCl 5 mg 08/14/24 22:47 08/18/24 08:05 Oxycodone Ir 5 Mg Tablet PO 5 mg Q4HR PRN Administration Pain Scale 4 - 7 Pantoprazole Sodium 40 mg 08/15/24 07:30 08/18/24 06:40 Pantoprazole 40 Mg Tablet. PO 08/15/25 07:29 40 mg DAILY.AC.BKFAST SANDI Administration Sodium Chloride 0 ml 08/15/24 06:00 08/18/24 13:23 Sodium Chloride 0.9 % 10 Ml Syringe IV-PUSH 08/15/25 05:59 Not Given QSHIFT SANDI Sodium Chloride 10 ml 08/15/24 11:04 08/18/24 15:20 Sodium Chloride 0.9 % 10 Ml Syringe IV-PUSH 08/15/25 11:03 10 ml PRN PRN Administration Flush Sodium Chloride 0 ml 08/17/24 12:53 Sodium Chloride 0.9 % 10 Ml Syringe IV-PUSH 08/17/25 12:52 PRN PRN Flush Sterile Water 0 ml 08/15/24 14:00 08/18/24 13:19 Water For Injection,Sterile 10 Ml Vial IRRIGATION 08/15/25 13:59 10 ml QID SANDI Administration A&P - Hospitalist Assessment/Plan (1) Abscess of right iliac fossa: (2) Type 1 diabetes mellitus: Plan Patient is a 24 year old male with T1DM with abscess of right iliac fossa transferred here from [facility]. Abscess of right iliac fossa CT lumbar spine wo con ([facility]) 2/ At L5-S1, grade 1 spondylolysis spondylolisthesis ofL5 on S1 with mild stenosis of the right neural foramen. CT abdomen pelvis w con ([facility]) Prominent low-attenuation collectionwithin the right iliac (The central portion of the collection measures approximately 7.1 x 4 x 12.5 cm. This extends inferiorly to the insertion of theproximal right femur) CT pelvis 08/17: There is a pigtail catheter within a heterogeneous collection along the right iliac muscle. This collection is slightly smaller measuring 5.3x 8.8 x 4.7 cm in greatest dimension. CT guided drain by GEORGES MCLEOD drain continues output Culture positive for MSSA ID following, patient is on cefazolin Dilaudid 1mg IV switched to Q2H PRN PT consulted May require surgical evaluation if symptoms persist/becomes febrile. T1DM A1c 13.2 on 07/31/24 Uncontrolled, glucose remains >300 for multiple readings. Lantus changed to 45 units starting 08/19 Morning Lantus administered already, 1 time 15 unit ordered today. DVT Prophylaxis: SCDs Documented By: Kanu Fry MD 08/18/24 1531 Signed By: 08/18/24 1730 08/18/24 1556 [facility]02-10-2025 Progress note Author Jorge England [facility] Note Date/Time August 18, 2024 10:39am [facility] [address] [place] [address] Infect. Disease Progress Note Signed Patient: Isaias Estrella MR#: [id number] : 2000 Acct:[id number] Age/Sex: 24 / M Adm Date: 5 Loc: 3T Room: 1T3864-0 Type: ADM IN Attending Dr: Kanu Fry MD Copies to: ~ Date of Service: 08/18/2024 Subjective Interval history: Patient continues to complain of discomfort down the right lower quadrant. Repeat CT of the pelvis done yesterday that showed slightly smaller fluid collection. GEORGES drain continues to have output. Patient switched to cefazolin over the weekend. Fever noted last night. Exam Physical Exam Vital Signs: Vital Signs Temp Pulse Resp BP Pulse Ox O2 Del Method 08/18/24 08:04 98.0 F 83 16 112/69 96 Room Air 08/18/24 08:00 Room Air 08/18/24 05:44 99.2 F H 95 16 142/87 H 95 Room Air 08/18/24 04:00 Room Air 08/18/24 00:00 Room Air 08/18/24 00:00 97.9 F 89 16 127/78 98 Room Air 08/17/24 20:00 Room Air 08/17/24 20:00 101.3 F H 112 H 18 136/88 96 Room Air 08/17/24 15:54 98.2 F 79 18 120/68 100 Room Air 08/17/24 11:32 Room Air 08/17/24 11:31 98.5 F 89 18 106/64 96 Room Air Intake and Output 08/17/24 08/18/24 08/18/24 23:59 07:59 15:59 Intake Total 3320 / 5712 2149 / 0 Output Total 590 / 645 1868 / 1868 Balance 2730 / 5067 282 / 282 Intake: IV 1500 / 2000 Sodium Chloride 0.9% 1,000 ml 1 1000 / 1000 ,000 ml @ 100 mls/hr IV .Q10H SANDI Rx#:[id number] Vancomycin 1.75 gm In Dextrose 500 / 1000 5 % in Water 500 ml @ 250 mls/ hr IV Q8H SANDI Rx#:[id number] Oral 1820 / 3712 2150 / 2150 Output: Urine 550 / 550 1850 / 1850 Wound Drainage Site #1 Other: # Unmeasured Voids 4 # Bowel Movements 0 0 Weight 75 kg Date of Last Bowel Movement 08/17/24 08/17/24 08/18/24 Patient Weight 08/18/24 23:59 Weight 75 kg Const General: cooperative and comfortable Nutritional Appearance: average body habitus HEENT Head: normal to inspection Mouth: oral mucosae normal Teeth and gingiva: dentition normal Eyes General: appearance normal, both eyes and all related structures Neck Neck: normal visual inspection Chest Chest palpation & inspection: normal inspection of the chest Resp Effort & Inspection: normal respiratory effort Cardio Palpation: normal PMI Rate: regular rate Rhythm: regular rhythm GI Inspection: abnormal to inspection (georges drain in RLQ) Palpation: soft and nontender Auscultation: normal bowel sounds General: bimanual renal exam normal bilaterally Skin General: no rashes or lesions noted Neuro General: patient oriented x3 Extrem General: normal to inspection Objective Labs CBC/BMP: CBC, BMP 08/17/24 08/18/24 13:40 06:22 Corrected WBC 6.4 7.9 RBC 3.15 L 3.21 L Hgb 10.7 L 10.6 L Hct 30.0 L 30.3 L Plt Count 389 404 Sodium 132 L Potassium 3.8 Chloride 96 L Carbon Dioxide 30.6 Anion Gap 9.2 BUN 10 Creatinine 0.64 L Calcium 8.9 Labs: 08/17/24 13:40 BUN 10 Creatinine 0.64 L Microbiology Microbiology: Microbiology - Results from entire visit 08/15/24 11:23 Abdomen - Abscess Aerobic Culture - Final Staphylococcus aureus 08/15/24 11:23 Abdomen - Abscess Anaerobic Culture - Final No Anaerobes Isolated 3 Days 08/15/24 11:23 Abdomen - Abscess Gram Stain - Final 08/15/24 15:06 Blood - Right Antecubital Blood Culture - Preliminary No Growth 2 Days 08/15/24 15:17 Blood - Right Forearm Blood Culture - Preliminary No Growth 2 Days Additional Results Results Comment: Pelvic CT: IMPRESSION: There is a pigtail catheter within a heterogeneous collection along the right iliac muscle. This collection is slightly smaller measuring 5.3 x 8.8 x 4.7 cm in greatest dimension. No significant interval change otherwise. Allergies and Medications Allergies and Active Meds Allergies No Known Allergies Allergy (Verified 08/08/24 19:47) Active Medications Acetaminophen (Acetaminophen 500 Mg Tablet) 1,000 mg PO Q6HR PRN PRN Reason: Pain Scale 1 - 3 or fever Stop: 08/14/25 22:17 Last Admin: 08/18/24 05:22 Dose: 1,000 mg Cefazolin Sodium (Cefazolin 2 Gm/11 Ml Syringe) 2 gm IV-PUSH Q8H [facility] Last Admin: 08/18/24 08:05 Dose: 2 gm Dextrose (Dextrose 50% In Water 25 Gm/50 Ml Syringe) 0 gm IV-PUSH PRN PRN PRN Reason: Hypoglycemia Stop: 08/14/25 22:17 Glucose (Dextrose 40% Gel 15 Gm Tube) 0 gm PO PRN PRN PRN Reason: Hypoglycemia Stop: 08/14/25 22:17 Heparin Sodium (Porcine) (Heparin 5,000 Unit/Ml Vial) 5,000 unit SUBCUT Q12HR [facility] Stop: 08/18/25 20:59 Home Med (Home Meds Kept In Pharmacy) 1 each MISCELLANE PRN PRN PRN Reason: zz.Pharmacy Note Stop: 08/17/25 06:40 Hydromorphone HCl (Hydromorphone 1 Mg/Ml Syringe) 1 mg IV-PUSH Q2H PRN PRN Reason: Pain Scale 7 - 10 Last Admin: 08/18/24 10:01 Dose: 1 mg Insulin Aspart (Insulin Aspart 300 Units/3 Ml) 0 units SUBCUT TID.WM.HS [facility]; Protocol Stop: 08/15/25 07:59 Last Admin: 08/18/24 09:25 Dose: 7 units Insulin Aspart (Insulin Aspart 300 Units/3 Ml) 0 units SUBCUT TID.WITH.MEALS [facility]; Protocol Stop: 08/15/25 16:59 Last Admin: 08/18/24 09:25 Dose: 3 units Insulin Glargine (Insulin Glargine 300 Units/3 Ml Insuln.Pen) 45 units SUBCUT DAILY [facility] Stop: 08/19/25 08:59 Naproxen (Naproxen 250 Mg Tablet) 250 mg PO TID.WITH.[facility]ALS [facility] Stop: 08/16/25 11:59 Last Admin: 08/18/24 08:06 Dose: 250 mg Ondansetron HCl (Ondansetron 4 Mg/2 Ml Vial) 4 mg IV-PUSH Q6H PRN PRN Reason: Nausea And Vomiting Stop: 08/14/25 22:17 Oxycodone HCl (Oxycodone Ir 5 Mg Tablet) 5 mg PO Q4HR PRN PRN Reason: Pain Scale 4 - 7 Last Admin: 08/18/24 08:05 Dose: 5 mg Pantoprazole Sodium (Pantoprazole 40 Mg Tablet.) 40 mg PO DAILY.AC.BKFAST [facility] Stop: 08/15/25 07:29 Last Admin: 08/18/24 06:40 Dose: 40 mg Sodium Chloride (Sodium Chloride 0.9 % 10 Ml Syringe) 0 ml IV-PUSH QSHIFT SANDI Stop: 08/15/25 05:59 Last Admin: 08/18/24 05:23 Dose: 10 ml Sodium Chloride (Sodium Chloride 0.9 % 10 Ml Syringe) 10 ml IV-PUSH PRN PRN PRN Reason: Flush Stop: 08/15/25 11:03 Last Admin: 08/18/24 10:01 Dose: 10 ml Sodium Chloride (Sodium Chloride 0.9 % 10 Ml Syringe) 0 ml IV-PUSH PRN PRN PRN Reason: Flush Stop: 08/17/25 12:52 Sterile Water (Water For Injection,Sterile 10 Ml Vial) 0 ml IRRIGATION QID SANDI Stop: 08/15/25 13:59 Last Admin: 08/18/24 09:27 Dose: 10 ml A&P - Infectious Disease Assessment/Plan (1) Abscess of right iliac fossa: Plan Continues to have output that is purulent in nature. CT scan noted yesterday with a slightly smaller decrease from Sunday. Patient's cultures with MSSA so switched to cefazolin. Noted to be febrile last night. Looking at the repeat pelvic CT scan I am still concerned that there are likely loculations but will follow markers of inflammation and trend fever curve. Laboratory Tests 08/15/24 08/16/24 08/17/24 12:31 08:00 13:40 C-Reactive Prot, Quant 31.5 H 31.0 H 27.0 H 08/18/24 06:22 C-Reactive Prot, Quant 25.4 H Maintaining cefazolin will be the plan for now. Will repeat CRP tomorrow. If fever again occurs would consult general surgery Documented By: Jorge England MD 08/18/24 103 Signed By: <Electronically signed by MD Jorge England> 08/18/241038 [facility] Work Phone: [phone]) 146-980402-10-2025 [place] [id number] Infect. Disease Progress Note Signed Patient: Isaias Estrella MR#: [id number] : 2000 Acct:[id number] Age/Sex: 24 / M Adm Date: 5 Loc: 3T Room: [address] [place] [address] Type: ADM IN Attending Dr: Kanu Fry MD Copies to: ~ Date of Service: 08/18/2024 Subjective Interval history: Patient continues to complain of discomfort down the right lower quadrant. Repeat CT of the pelvis done yesterday that showed slightly smaller fluid collection. GEORGES drain continues to have output. Patient switched to cefazolin over the weekend. Fever noted last night. Exam Physical Exam Vital Signs: Vital Signs Temp Pulse Resp BP Pulse Ox O2 Del Method 08/18/24 08:04 98.0 F 83 16 112/69 96 Room Air 08/18/24 08:00 Room Air 08/18/24 05:44 99.2 F H 95 16 142/87 H 95 Room Air 08/18/24 04:00 Room Air 08/18/24 00:00 Room Air 08/18/24 00:00 97.9 F 89 16 127/78 98 Room Air 08/17/24 20:00 Room Air 08/17/24 20:00 101.3 F H 112 H 18 136/88 96 Room Air 08/17/24 15:54 98.2 F 79 18 120/68 100 Room Air 08/17/24 11:32 Room Air 08/17/24 11:31 98.5 F 89 18 106/64 96 Room Air Intake and Output 08/17/24 08/18/24 08/18/24 23:59 07:59 15:59 Intake Total 3320 / 5712 2149 / 2149 Output Total 590 / 645 1868 / 1868 Balance 2730 / 5067 282 / 282 Intake: IV 1500 / 2000 Sodium Chloride 0.9% 1,000 ml 1 1000 / 1000 ,000 ml @ 100 mls/hr IV .Q10H SANDI Rx#:[id number] Vancomycin 1.75 gm In Dextrose 500 / 1000 5 % in Water 500 ml @ 250 mls/ hr IV Q8H SANDI Rx#:[id number] Oral 1820 / 3712 2150 / 2150 Output: Urine 550 / 550 1850 / 1850 Wound Drainage Site #1 Other: # Unmeasured Voids 4 # Bowel Movements 0 0 Weight 75 kg Date of Last Bowel Movement 08/17/24 08/17/24 08/18/24 Patient Weight 08/18/24 23:59 Weight 75 kg Const General: cooperative and comfortable Nutritional Appearance: average body habitus HEENT Head: normal to inspection Mouth: oral mucosae normal Teeth and gingiva: dentition normal Eyes General: appearance normal, both eyes and all related structures Neck Neck: normal visual inspection Chest Chest palpation & inspection: normal inspection of the chest Resp Effort & Inspection: normal respiratory effort Cardio Palpation: normal PMI Rate: regular rate Rhythm: regular rhythm GI Inspection: abnormal to inspection (georges drain in RLQ) Palpation: soft and nontender Auscultation: normal bowel sounds General: bimanual renal exam normal bilaterally Skin General: no rashes or lesions noted Neuro General: patient oriented x3 Extrem General: normal to inspection Objective Labs CBC/BMP: CBC, BMP 08/17/24 08/18/24 13:40 06:22 Corrected WBC 6.4 7.9 RBC 3.15 L 3.21 L Hgb 10.7 L 10.6 L Hct 30.0 L 30.3 L Plt Count 389 404 Sodium 132 L Potassium 3.8 Chloride 96 L Carbon Dioxide 30.6 Anion Gap 9.2 BUN 10 Creatinine 0.64 L Calcium 8.9 Labs: 08/17/24 13:40 BUN 10 Creatinine 0.64 L Microbiology Microbiology: Microbiology - Results from entire visit 08/15/24 11:23 Abdomen - Abscess Aerobic Culture - Final Staphylococcus aureus 08/15/24 11:23 Abdomen - Abscess Anaerobic Culture - Final No Anaerobes Isolated 3 Days 08/15/24 11:23 Abdomen - Abscess Gram Stain - Final 08/15/24 15:06 Blood - Right Antecubital Blood Culture - Preliminary No Growth 2 Days 08/15/24 15:17 Blood - Right Forearm Blood Culture - Preliminary No Growth 2 Days Additional Results Results Comment: Pelvic CT: IMPRESSION: There is a pigtail catheter within a heterogeneous collection along the right iliac muscle. This collection is slightly smaller measuring 5.3 x 8.8 x 4.7 cm in greatest dimension. No significant interval change otherwise. Allergies and Medications Allergies and Active Meds Allergies No Known Allergies Allergy (Verified 08/08/24 19:47) Active Medications Acetaminophen (Acetaminophen 500 Mg Tablet) 1,000 mg PO Q6HR PRN PRN Reason: Pain Scale 1 - 3 or fever Stop: 08/14/25 22:17 Last Admin: 08/18/24 05:22 Dose: 1,000 mg Cefazolin Sodium (Cefazolin 2 Gm/11 Ml Syringe) 2 gm IV-PUSH Q8H [facility] Last Admin: 08/18/24 08:05 Dose: 2 gm Dextrose (Dextrose 50% In Water 25 Gm/50 Ml Syringe) 0 gm IV-PUSH PRN PRN PRN Reason: Hypoglycemia Stop: 08/14/25 22:17 Glucose (Dextrose 40% Gel 15 Gm Tube) 0 gm PO PRN PRN PRN Reason: Hypoglycemia Stop: 08/14/25 22:17 Heparin Sodium (Porcine) (Heparin 5,000 Unit/Ml Vial) 5,000 unit SUBCUT Q12HR [facility] Stop: 08/18/25 20:59 Home Med (Home Meds Kept In Pharmacy) 1 each MISCELLANE PRN PRN PRN Reason: zz.Pharmacy Note Stop: 08/17/25 06:40 Hydromorphone HCl (Hydromorphone 1 Mg/Ml Syringe) 1 mg IV-PUSH Q2H PRN PRN Reason: Pain Scale 7 - 10 Last Admin: 08/18/24 10:01 Dose: 1 mg Insulin Aspart (Insulin Aspart 300 Units/3 Ml) 0 units SUBCUT TID.WM.HS [facility]; Protocol Stop: 08/15/25 07:59 Last Admin: 08/18/24 09:25 Dose: 7 units Insulin Aspart (Insulin Aspart 300 Units/3 Ml) 0 units SUBCUT TID.WITH.MEALS [facility]; Protocol Stop: 08/15/25 16:59 Last Admin: 08/18/24 09:25 Dose: 3 units Insulin Glargine (Insulin Glargine 300 Units/3 Ml Insuln.Pen) 45 units SUBCUT DAILY [facility] Stop: 08/19/25 08:59 Naproxen (Naproxen 250 Mg Tablet) 250 mg PO TID.WITH.MEALS [facility] Stop: 08/16/25 11:59 Last Admin: 08/18/24 08:06 Dose: 250 mg Ondansetron HCl (Ondansetron 4 Mg/2 Ml Vial) 4 mg IV-PUSH Q6H PRN PRN Reason: Nausea And Vomiting Stop: 08/14/25 22:17 Oxycodone HCl (Oxycodone Ir 5 Mg Tablet) 5 mg PO Q4HR PRN PRN Reason: Pain Scale 4 - 7 Last Admin: 08/18/24 08:05 Dose: 5 mg Pantoprazole Sodium (Pantoprazole 40 Mg Tablet.Dr) 40 mg PO DAILY.AC.BKFAST [facility] Stop: 08/15/25 07:29 Last Admin: 08/18/24 06:40 Dose: 40 mg Sodium Chloride (Sodium Chloride 0.9 % 10 Ml Syringe) 0 ml IV-PUSH QSHIFT SANDI Stop: 08/15/25 05:59 Last Admin: 08/18/24 05:23 Dose: 10 ml Sodium Chloride (Sodium Chloride 0.9 % 10 Ml Syringe) 10 ml IV-PUSH PRN PRN PRN Reason: Flush Stop: 08/15/25 11:03 Last Admin: 08/18/24 10:01 Dose: 10 ml Sodium Chloride (Sodium Chloride 0.9 % 10 Ml Syringe) 0 ml IV-PUSH PRN PRN PRN Reason: Flush Stop: 08/17/25 12:52 Sterile Water (Water For Injection,Sterile 10 Ml Vial) 0 ml IRRIGATION QID [facility] Stop: 08/15/25 13:59 Last Admin: 08/18/24 09:27 Dose: 10 ml A&P - Infectious Disease Assessment/Plan (1) Abscess of right iliac fossa: Plan Continues to have output that is purulent in nature. CT scan noted yesterday with a slightly smaller decrease from Sunday. Patient's cultures with MSSA so switched to cefazolin. Noted to be febrile last night. Looking at the repeat pelvic CT scan I am still concerned that there are likely loculations but will follow markers of inflammation and trend fever curve. Laboratory Tests 08/15/24 08/16/24 08/17/24 12:31 08:00 13:40 C-Reactive Prot, Quant 31.5 H 31.0 H 27.0 H 08/18/24 06:22 C-Reactive Prot, Quant 25.4 H Maintaining cefazolin will be the plan for now. Will repeat CRP tomorrow. If fever again occurs would consult general surgery Documented By: Jorge England MD 08/18/24 1031 Signed By: 08/18/24 1039 [facility]02-09-2025 Progress note Author Vicky Espino [facility] Note Date/Time August 17, 2024 6 :42pm [facility] [address] [place] [address] Hospitalist Progress Note Signed Patient: Isaias Estrella MR#: [id number] : 2000 Acct:[id number] Age/Sex: 24 / M Adm Date: 5 Loc: 3T Room: [address] [place] [address] Type: ADM IN Attending Dr: Vicky Espino MD Copies to: ~ Date of Service: 08/17/2024 Subjective Subjective Narrative: Assessment And Plan 24M with PMH of DM the presented to [facility] ER for intractable upper right leg pain and transferred for the evaluation and treatment of suspected Right iliac abscess Staphylococcus infection Sepsis related to above Intractable pain Pain in the upper right thigh is still severe today not improving. no fever. hesaid IV opioids work but Dilaudid work better. he has radiating pain to his right testicles. testicle exam normal non tender no erythema or swelling no history of IV drug use. he reported history of back infection when he was a child CT lumbar spine wo con ([facility]) 2/ At L5-S1, grade 1 spondylolysis spondylolisthesis of L5 on S1 with mild stenosis of the right neural foramen. CT abdomen pelvis w con ([facility]) Prominent low-attenuation collectionwithin the right iliac (The central portion of the collection measures approximately 7.1 x 4 x 12.5 cm. This extends inferiorly to the insertion of theproximal right femur) no Blood culture done at [facility] Drainage Culture Staphylococcus aureus WBC 13K CRP [address] guided drained by IR Pain control (stop Toradol, add naproxen TID, Add Dilaudid/oxycodone prn) will do CT pelvis with contrast to follow up on the abscess . IVF will be given to avoid MACY IV vancomycin DM blood sugars were reviewed , not well controlled sliding scale insulin and accuchecks. basal insulin: increased dose to 30 units prandial insulin: carb coverage. hypoglycemia protocol. Lung nodule CT Abd reported 4 to 5 mm nodule at the left lung base. There is no pleural effusion. for outpatient follow up addendum Follow up CT shows pigtail catheter within a heterogeneous collection along the right iliac muscle. This collection is slightly smaller measuring 5.3 x 8.8 x 4.7 cm in greatest dimension. i discussed with general surgery who advised other than continue draining he is not good for open surgery which if needed it will not be in this hospital given the improvement of the size will continue antibiotics and pain control LINTERVAL HPI: As Above, Pt resting in bed. pain is not improving . Denies any chest pain, SOB Chronic diseases: Unless mentioned Above, Essential home medications have been continued. DVT Px: no risk ; ambulation Disposition: To be determined Plan of care Discussed with: the medical team, the patient L Exam Physical Exam Vital Signs: Temp Pulse Resp BP Pulse Ox O2 Del Method 36.9 C 89 18 106/64 96 Room Air 08/17/24 11:31 08/17/24 11:31 08/17/24 11:31 08/17/24 11:31 08/17/24 11:31 08/17/24 11:32 Narrative: GEN: NAD, Cooperative LUNGS: CTA. CV: nl S1 S2; no M/R/G, ABD: Soft, ND, RLQ tenderness no rebound , + BS, ? HSM,testicle exam normal there is no tenderness, warmness erythema or swelling EXT: less pain in the right groin and upper thigh compared to RLQ pain , drainin place, No peripheral edema, No calf muscle tenderness NEURO: ? FND. PSYCH: nl affect, AOx3 Const General: cushingoid Objective Lab Results 08/17/24 13:40 08/17/24 13:40 Microbiology Results Microbiology 08/15/24 11:23 Abdomen - Abscess Aerobic Culture - Final Staphylococcus aureus 08/15/24 11:23 Abdomen - Abscess Anaerobic Culture - Preliminary No Anaerobes Isolated 2 Days 08/15/24 11:23 Abdomen - Abscess Gram Stain - Final 08/15/24 15:06 Blood - Right Antecubital Blood Culture - Preliminary No Growth 1 Day 08/15/24 15:17 Blood - Right Forearm Blood Culture - Preliminary No Growth 1 Day Meds Allergies and Active Meds Allergies No Known Allergies Allergy (Verified 08/08/24 19:47) Active Meds: Active Medications Generic Name Dose Route Start Last Admin Trade Name Freq PRN Reason Stop Dose Admin Acetaminophen 1,000 mg 08/14/24 22:18 08/17/24 09:03 Acetaminophen 500 Mg Tablet PO 08/14/25 22:17 1,000 mg Q6HR PRN Administration Pain Scale 1 - 3 or fever Dextrose 0 gm 08/14/24 22:18 Dextrose 50% In Water 25 Gm/50 Ml Syringe IV-PUSH 08/14/25 22:17 PRN PRN Hypoglycemia Glucose 0 gm 08/14/24 22:18 Dextrose 40% Gel 15 Gm Tube PO 08/14/25 22:17 PRN PRN Hypoglycemia Home Med 1 each 08/17/24 06:41 Home Meds Kept In Pharmacy MISCELLANE 08/17/25 06:40 PRN PRN zz.Pharmacy Note Hydromorphone HCl 1 mg 08/17/24 11:53 Hydromorphone 1 Mg/Ml Syringe IV-PUSH Q4H PRN Pain Scale 7 - 10 Vancomycin HCl 1.75 gm/ 500 mls @ 250 mls/hr 08/16/24 12:00 08/17/24 06:28 Dextrose IV 08/16/25 11:59 Infused Q8H SANDI Infusion Sodium Chloride 1,000 mls @ 100 mls/hr 08/17/24 12:00 0.9% Sodium Chloride 1,000 Ml IV 08/17/24 21:59 .Q10H SANDI Insulin Aspart 0 units 08/15/24 08:00 08/17/24 09:05 Insulin Aspart 300 Units/3 Ml SUBCUT 08/15/25 07:59 7 units TID.[facility] Administration Protocol Insulin Aspart 0 units 08/15/24 17:00 08/17/24 09:05 Insulin Aspart 300 Units/3 Ml SUBCUT 08/15/25 16:59 3 units TID.WITH.[facility] Administration Protocol Insulin Glargine 30 units 08/17/24 09:00 08/17/24 09:06 Insulin Glargine 300 Units/3 Ml Insuln.Pen SUBCUT 08/17/25 08:59 30 units DAILY SANDI Administration Naproxen 250 mg 08/16/24 12:00 08/17/24 11:33 Naproxen 250 Mg Tablet PO 08/16/25 11:59 250 mg TID.WITH.MEALS SANDI Administration Ondansetron HCl 4 mg 08/14/24 22:18 Ondansetron 4 Mg/2 Ml Vial IV-PUSH 08/14/25 22:17 Q6H PRN Nausea And Vomiting Oxycodone HCl 5 mg 08/14/24 22:47 08/17/24 09:02 Oxycodone Ir 5 Mg Tablet PO 5 mg Q4HR PRN Administration Pain Scale 4 - 7 Pantoprazole Sodium 40 mg 08/15/24 07:30 08/17/24 09:26 Pantoprazole 40 Mg Tablet.Dr DOUGLAS 08/15/25 07:29 Not Given DAILY.AC.BKFAST SANDI Sodium Chloride 0 ml 08/15/24 06:00 08/17/24 06:17 Sodium Chloride 0.9 % 10 Ml Syringe IV-PUSH 08/15/25 05:59 10 ml QSHIFT SANDI Administration Sodium Chloride 10 ml 08/15/24 11:04 08/17/24 11:34 Sodium Chloride 0.9 % 10 Ml Syringe IV-PUSH 08/15/25 11:03 10 ml PRN PRN Administration Flush Sterile Water 0 ml 08/15/24 14:00 08/17/24 09:03 Water For Injection,Sterile 10 Ml Vial IRRIGATION 08/15/25 13:59 10 ml QID SANDI Administration Vancomycin HCl 1 each 08/14/24 22:18 Vancomycin - Pharmacy Dosing 1 Each Miscell IV ONCE PRN ZZ.Pharmacy Consult Protocol A&P - Hospitalist Assessment/Plan (1) Type 1 diabetes mellitus: (2) Intractable pain: Plan Documented By: Vicky Espino MD 08/17/24 1201 Signed By: <Electronically signed by Vicky Espino MD> 08/17/24 1842 [facility] Work Phone: [phone]) 777-654102-09-2025 [place] [id number] Hospitalist Progress Note Signed Patient: Isaias Estrella MR#: [id number] : 2000 Acct:[id number] Age/Sex: 24 / M Adm Date: 5 Loc: Room: [address] [place] [address] Type: ADM IN Attending Dr: Vicky Espino MD Copies to: ~ Date of Service: 08/17/2024 Subjective Subjective Narrative: Assessment And Plan 24M with PMH of DM the presented to [facility] ER for intractable upper right leg pain and transferred for the evaluation and treatment of suspected Right iliac abscess Staphylococcus infection Sepsis related to above Intractable pain Pain in the upper right thigh is still severe today not improving. no fever. hesaid IV opioids workbut Dilaudid work better. he has radiating pain to his right testicles. testicle exam normal non tender no erythema or swelling no history of IV drug use. he reported history of back infection when he was a child CT lumbar spine wo con ([facility]) 2/4 At L5-S1, grade 1 spondylolysis spondylolisthesis ofL5 on S1 with mild stenosis of the right neural foramen. CT abdomen pelvis w con ([facility]) Prominent low-attenuation collectionwithin the right iliac (The central portion of the collection measures approximately 7.1 x 4 x 12.5 cm. This extends inferiorly to the insertion of theproximal right femur) no Blood culture done at [facility] Staphylococcus aureus WBC 13K CRP [address] guided drained by IR Pain control (stop Toradol, add naproxen TID, Add Dilaudid/oxycodone prn) will do CT pelvis with contrast to follow up on the abscess . IVF will be given to avoid MACY IV vancomycin DM blood sugars were reviewed , not well controlled sliding scale insulin and accuchecks. basal insulin: increased dose to 30 units prandial insulin: carb coverage. hypoglycemia protocol. Lung nodule CT Abd reported 4 to 5 mm nodule at the left lung base. There is no pleural effusion. for outpatient follow up addendum Follow up CT shows pigtail catheter within a heterogeneous collection along the right iliac muscle.This collection is slightly smaller measuring 5.3 x 8.8 x 4.7 cm in greatest dimension. i discussed with general surgery who advised other than continue draining he is not good for open surgery which if needed it will not be in this hospital given the improvement of the size will continue antibiotics and pain control LINTERVAL HPI: As Above, Pt resting in bed. pain is not improving . Denies any chest pain, SOB Chronic diseases: Unless mentioned Above, Essential home medications have been continued. DVT Px: no risk ; ambulation Disposition: To be determined Plan of care Discussed with: the medical team, the patient L Exam Physical Exam Vital Signs: Temp Pulse Resp BP Pulse Ox O2 Del Method 36.9 C 89 18 106/64 96 Room Air 08/17/24 11:31 08/17/24 11:08/17/24 11:08/17/24 11:31 08/17/24 11:31 08/17/24 11:32 Narrative: GEN: NAD, Cooperative LUNGS: CTA. CV: nl S1 S2; no M/R/G, ABD: Soft, ND, RLQ tenderness no rebound , + BS, ? HSM,testicle exam normal there is no tenderness,warmness erythema or swelling EXT: less pain in the right groin and upper thigh compared to RLQ pain , drainin place, No peripheral edema, No calf muscle tenderness NEURO: ? FND. PSYCH: nl affect, AOx3 Const General: cushingoid Objective Lab Results 08/17/24 13:40 08/17/24 13:40 Microbiology Results Microbiology 08/15/24 11:23 Abdomen - Abscess Aerobic Culture - Final Staphylococcus aureus 08/15/24 11:23 Abdomen - Abscess Anaerobic Culture - Preliminary No Anaerobes Isolated 2 Days 08/15/24 11:23 Abdomen - Abscess Gram Stain - Final 08/15/24 15:06 Blood - Right Antecubital Blood Culture - Preliminary No Growth 1 Day 08/15/24 15:17 Blood - Right Forearm Blood Culture - Preliminary No Growth 1 Day Meds Allergies and Active Meds Allergies No Known Allergies Allergy (Verified 08/08/24 19:47) Active Meds: Active Medications Generic Name Dose Route Start Last Admin Trade Name Leslye PRN Reason Stop Dose Admin Acetaminophen 1,000 mg 08/14/24 22:18 08/17/24 09:03 Acetaminophen 500 Mg Tablet PO 08/14/25 22:17 1,000 mg Q6HR PRN Administration Pain Scale 1 - 3 or fever Dextrose 0 gm 08/14/24 22:18 Dextrose 50% In Water 25 Gm/50 Ml Syringe IV-PUSH 08/14/25 22:17 PRN PRN Hypoglycemia Glucose 0 gm 08/14/24 22:18 Dextrose 40% Gel 15 Gm Tube PO 08/14/25 22:17 PRN PRN Hypoglycemia Home Med 1 each 08/17/24 06:41 Home Meds Kept In Pharmacy MISCELLANE 08/17/25 06:40 PRN PRN zz.Pharmacy Note Hydromorphone HCl 1 mg 08/17/24 11:53 Hydromorphone 1 Mg/Ml Syringe IV-PUSH Q4H PRN Pain Scale 7 - 10 Vancomycin HCl 1.75 gm/ 500 mls @ 250 mls/hr 08/16/24 12:00 08/17/24 06:28 Dextrose IV 08/16/25 11:59 Infused Q8H SANDI Infusion Sodium Chloride 1,000 mls @ 100 mls/hr 08/17/24 12:00 0.9% Sodium Chloride 1,000 Ml IV 08/17/24 21:59 .Q10H ASNDI Insulin Aspart 0 units 08/15/24 08:00 08/17/24 09:05 Insulin Aspart 300 Units/3 Ml SUBCUT 08/15/25 07:59 7 units TID.WM.HS SANDI Administration Protocol Insulin Aspart 0 units 08/15/24 17:00 08/17/24 09:05 Insulin Aspart 300 Units/3 Ml SUBCUT 08/15/25 16:59 3 units TID.WITH.MEALS SANDI Administration Protocol Insulin Glargine 30 units 08/17/24 09:00 08/17/24 09:06 Insulin Glargine 300 Units/3 Ml Insuln.Pen SUBCUT 08/17/25 08:59 30 units DAILY SANDI Administration Naproxen 250 mg 08/16/24 12:00 08/17/24 11:33 Naproxen 250 Mg Tablet PO 08/16/25 11:59 250 mg TID.WITH.MEALS SANDI Administration Ondansetron HCl 4 mg 08/14/24 22:18 Ondansetron 4 Mg/2 Ml Vial IV-PUSH 08/14/25 22:17 Q6H PRN Nausea And Vomiting Oxycodone HCl 5 mg 08/14/24 22:47 08/17/24 09:02 Oxycodone Ir 5 Mg Tablet PO 5 mg Q4HR PRN Administration Pain Scale 4 - 7 Pantoprazole Sodium 40 mg 08/15/24 07:30 08/17/24 09:26 Pantoprazole 40 Mg Tablet.Dr PO 08/15/25 07:29 Not Given DAILY.AC.BKFAST SANDI Sodium Chloride 0 ml 08/15/24 06:00 08/17/24 06:17 Sodium Chloride 0.9 % 10 Ml Syringe IV-PUSH 08/15/25 05:59 10 ml QSHIFT SANDI Administration Sodium Chloride 10 ml 08/15/24 11:04 08/17/24 11:34 Sodium Chloride 0.9 % 10 Ml Syringe IV-PUSH 08/15/25 11:03 10 ml PRN PRN Administration Flush Sterile Water 0 ml 08/15/24 14:00 08/17/24 09:03 Water For Injection,Sterile 10 Ml Vial IRRIGATION 08/15/25 13:59 10 ml QID SANDI Administration Vancomycin HCl 1 each 08/14/24 22:18 Vancomycin - Pharmacy Dosing 1 Each Miscell IV ONCE PRN ZZ.Pharmacy Consult Protocol A&P - Hospitalist Assessment/Plan (1) Type 1 diabetes mellitus: (2) Intractable pain: Plan Documented By: Vicky Espino MD 08/17/24 1201 Signed By: 08/17/24 1842 [facility]02-09-2025 Radiology Diagnostic study note [facility] Main [place] [address] [place] [address] CT Scan Report Signed Patient: Isaias Estrella MR#: [id number] : 2000 Acct:[id number] Age/Sex: 24 / M ADM Date: 5 Loc: Room: [address] [place] [address] Type: ADM IN Attending Dr: Vicky Espino MD Copies to: Vicky Espino MD~ Ordering Provider: Vicky Espino MD Date of Service: 08/17/24 CT/CT pelvis w con: Right iliac abscess with not improving pain CT pelvis w con 08/17/2024 11:56 AM SIGNS AND SYMPTOMS: Right iliac abscess with not improving pain CONTRAST: 90 mL of intravenous Isovue-300 TECHNIQUE: Multiple detector CT axial slices of the pelvis were obtained with IVcontrast. Multiplanar reformats were performed and viewed on a separate workstation and reviewed to further define anatomy and possible pathology. CT was performed with one or more of the following dose reduction techniques: Automated exposure control, adjustment of the mA and/or kV according to patient size, or use of iterative reconstruction technique. COMPARISON: 08/14/2024. FINDINGS: ABDOMEN: Visualized Liver: Within normal limits. Visualized Kidneys: Within normal limits. Pelvis: Reproductive Organs: No pelvic masses. Ureters: Within normal limits. Bladder: Within normal limits. Bowel: Normal caliber. Mesenteric Lymph Nodes: No enlarged mesenteric lymph nodes. Peritoneum: There is a small amount of free fluid in the pelvis which is presumably reactive in nature. This is similar to the prior exam. Vessels: within normal limits Retroperitoneum: There is a pigtail catheter within a heterogeneous collection along the right iliac muscle. This collection is slightly smaller measuring 5.3x 8.8 x 4.7 cm in greatest dimension. Abdominal Wall: Within normal limits. Bones: Bilateral L5 pars defects are present. There is mild grade 1 spondylolisthesis of L5 upon S1. Degenerative changes are noted in the sacroiliac joints. CT/CT pelvis w con IMPRESSION: There is a pigtail catheter within a heterogeneous collection along the right iliac muscle. This collection is slightly smaller measuring 5.3 x 8.8 x 4.7 cm in greatest dimension. No significant interval change otherwise. Impression dictated by: Imtiaz Kingsley M.D.08/17/2024 1:17 PM Dictation Location: [employer] [facility] Transcribed By: APRIL 08/17/24 131 Dictated By: Imtiaz Kingsley II, MD 08/17/24 1312 Signed By: 08/17/24 1317 [facility] Work Phone: [phone]) 611-619502-08-2025 Progress note Author Vicky Espino [facility] Note Date/Time August 16, 2024 6 :30pm [facility] [address] [place] [address] Hospitalist Progress Note Signed Patient: Isaias Estrella MR#: [id number] : 2000 Acct:[id number] Age/Sex: 24 / M Adm Date: 5 Loc: Room: [address] [place] [address] Type: ADM IN Attending Dr: Vicky Espino MD Copies to: ~ Date of Service: 08/16/2024 Subjective Subjective Narrative: Assessment And Plan 24M with PMH of DM the presented to [facility] ER for intractable upper right leg pain and transferred for the evaluation and treatment of suspected Right iliac abscess Staphylococcus infection Sepsis related to above Intractable pain Pain in the upper right thigh is still severe today. no fever. he said IV opioids work no history of IV drug use. he reported history of back infection when he was a child CT lumbar spine wo con ([facility]) 2/4 At L5-S1, grade 1 spondylolysis spondylolisthesis of L5 on S1 with mild stenosis of the right neural foramen. CT abdomen pelvis w con ([facility]) Prominent low-attenuation collectionwithin the right iliac (The central portion of the collection measures approximately 7.1 x 4 x 12.5 cm. This extends inferiorly to the insertion of theproximal right femur) no Blood culture done at [facility] Staphylococcus aureus WBC 13K CRP [address] guided drained by IR Pain control (stop Toradol, add naproxen TID, Morphine/oxycodone prn) IV vancomycin ID recommendation appreciated DM blood sugars were reviewed , not well controlled sliding scale insulin and accuchecks. basal insulin: increase dose to 30 units prandial insulin: carb coverage. hypoglycemia protocol. Lung nodule CT Abd reported 4 to 5 mm nodule at the left lung base. There is no pleural effusion. for outpatient follow up LINTERVAL HPI: As Above, Pt resting in bed. pain is not improving . Denies any chest pain, SOB Chronic diseases: Unless mentioned Above, Essential home medications have been continued. DVT Px: no risk ; ambulation Disposition: To be determined Plan of care Discussed with: the medical team, the patient L Exam Physical Exam Vital Signs: Temp Pulse Resp BP Pulse Ox O2 Del Method 36.6 C 86 16 120/75 100 Room Air 08/16/24 12:00 08/16/24 12:00 08/16/24 12:00 08/16/24 12:00 08/16/24 12:00 08/16/24 12:00 Narrative: GEN: NAD, Cooperative LUNGS: CTA. CV: nl S1 S2; no M/R/G, ABD: Soft, ND, RLQ tenderness no rebound , + BS, ? ? HSM EXT: right groin , upper thigh , drain in place, No peripheral edema, No calf muscle tenderness NEURO: ? FND. PSYCH: nl affect, AOx3 Objective Lab Results 08/16/24 08:00 08/16/24 08:00 Microbiology Results Microbiology 08/15/24 11:23 Abdomen - Abscess Aerobic Culture - Preliminary Staphylococcus aureus 08/15/24 11:23 Abdomen - Abscess Anaerobic Culture - Preliminary No Anaerobes Isolated 1 Day Meds Allergies and Active Meds Allergies No Known Allergies Allergy (Verified 08/08/24 19:47) Active Meds: Active Medications Generic Name Dose Route Start Last Admin Trade Name Freq PRN Reason Stop Dose Admin Acetaminophen 1,000 mg 08/14/24 22:18 08/16/24 08:55 Acetaminophen 500 Mg Tablet PO 08/14/25 22:17 1,000 mg Q6HR PRN Administration Pain Scale 1 - 3 or fever Dextrose 0 gm 08/14/24 22:18 Dextrose 50% In Water 25 Gm/50 Ml Syringe IV-PUSH 08/14/25 22:17 PRN PRN Hypoglycemia Glucose 0 gm 08/14/24 22:18 Dextrose 40% Gel 15 Gm Tube PO 08/14/25 22:17 PRN PRN Hypoglycemia Vancomycin HCl 1.75 gm/ 500 mls @ 250 mls/hr 08/16/24 12:00 08/16/24 12:54 Dextrose IV 08/16/25 11:59 250 mls/hr Q8H SANDI Administration Insulin Aspart 0 units 08/15/24 08:00 08/16/24 12:55 Insulin Aspart 300 Units/3 Ml SUBCUT 08/15/25 07:59 5 units TID.WM.HS SANDI Administration Protocol Insulin Aspart 0 units 08/15/24 17:00 08/16/24 12:56 Insulin Aspart 300 Units/3 Ml SUBCUT 08/15/25 16:59 3 units TID.WITH.MEALS SANDI Administration Protocol Insulin Glargine 15 units 08/15/24 09:00 08/16/24 08:57 Insulin Glargine 300 Units/3 Ml Insuln.Pen SUBCUT 08/15/25 08:59 15 units DAILY SANDI Administration Morphine Sulfate 4 mg 08/16/24 11:00 Morphine Sulfate 4 Mg/Ml Cartridge IV-PUSH Q4H PRN Pain Scale 8 - 10 Naproxen 250 mg 08/16/24 12:00 08/16/24 12:55 Naproxen 250 Mg Tablet PO 08/16/25 11:59 250 mg TID.WITH.MEALS SANDI Administration Ondansetron HCl 4 mg 08/14/24 22:18 Ondansetron 4 Mg/2 Ml Vial IV-PUSH 08/14/25 22:17 Q6H PRN Nausea And Vomiting Oxycodone HCl 5 mg 08/14/24 22:47 08/16/24 09:25 Oxycodone Ir 5 Mg Tablet PO 5 mg Q4HR PRN Administration Pain Scale 4 - 7 Pantoprazole Sodium 40 mg 08/15/24 07:30 08/16/24 06:33 Pantoprazole 40 Mg Tablet. PO 08/15/25 07:29 Not Given DAILY.AC.BKFAST SANDI Sodium Chloride 0 ml 08/15/24 06:00 08/16/24 06:33 Sodium Chloride 0.9 % 10 Ml Syringe IV-PUSH 08/15/25 05:59 Not Given QSHIFT SANDI Sodium Chloride 10 ml 08/15/24 11:04 08/16/24 02:55 Sodium Chloride 0.9 % 10 Ml Syringe IV-PUSH 08/15/25 11:03 10 ml PRN PRN Administration Flush Sterile Water 0 ml 08/15/24 14:00 08/16/24 08:57 Water For Injection,Sterile 10 Ml Vial IRRIGATION 08/15/25 13:59 10 ml QID SANDI Administration Vancomycin HCl 1 each 08/14/24 22:18 Vancomycin - Pharmacy Dosing 1 Each Miscell IV ONCE PRN ZZ.Pharmacy Consult Protocol A&P - Hospitalist Assessment/Plan (1) Type 1 diabetes mellitus: (2) Intractable pain: Plan Documented By: Vicky Espino MD 08/16/24 1330 Signed By: <Electronically signed by Vicky Espino MD> 08/16/24 1830 [facility] Work Phone: [phone]) [phone] Progress [place] [id number] Hospitalist Progress Note Signed Patient: Isaias Estrella MR#: [id number] : 2000 Acct:[id number] Age/Sex: 24 / M Adm Date: 5 Loc: Room: [address] [place] [address] Type: ADM IN Attending Dr: Vicky Espino MD Copies to: ~ Date of Service: 08/16/2024 Subjective Subjective Narrative: Assessment And Plan 24M with PMH of DM the presented to [facility] ER for intractable upper right leg pain and transferred for the evaluation and treatment of suspected Right iliac abscess Staphylococcus infection Sepsis related to above Intractable pain Pain in the upper right thigh is still severe today. no fever. he said IV opioids work no history of IV drug use. he reported history of back infection when he was a child CT lumbar spine wo con ([facility]) 2/4 At L5-S1, grade 1 spondylolysis spondylolisthesis ofL5 on S1 with mild stenosis of the right neural foramen. CT abdomen pelvis w con ([facility]) Prominent low-attenuation collectionwithin the right iliac (The central portion of the collection measures approximately 7.1 x 4 x 12.5 cm. This extends inferiorly to the insertion of theproximal right femur) no Blood culture done at [facility] Staphylococcus aureus WBC 13K CRP [address] guided drained by IR Pain control (stop Toradol, add naproxen TID, Morphine/oxycodone prn) IV vancomycin ID recommendation appreciated DM blood sugars were reviewed , not well controlled sliding scale insulin and accuchecks. basal insulin: increase dose to 30 units prandial insulin: carb coverage. hypoglycemia protocol. Lung nodule CT Abd reported 4 to 5 mm nodule at the left lung base. There is no pleural effusion. for outpatient follow up LINTERVAL HPI: As Above, Pt resting in bed. pain is not improving . Denies any chest pain, SOB Chronic diseases: Unless mentioned Above, Essential home medications have been continued. DVT Px: no risk ; ambulation Disposition: To be determined Plan of care Discussed with: the medical team, the patient L Exam Physical Exam Vital Signs: Temp Pulse Resp BP Pulse Ox O2 Del Method 36.6 C 86 16 120/75 100 Room Air 08/16/24 12:00 08/16/24 12:00 08/16/24 12:00 08/16/24 12:00 08/16/24 12:00 08/16/24 12:00 Narrative: GEN: NAD, Cooperative LUNGS: CTA. CV: nl S1 S2; no M/R/G, ABD: Soft, ND, RLQ tenderness no rebound , + BS, ? ? HSM EXT: right groin , upper thigh , drain in place, No peripheral edema, No calf muscle tenderness NEURO: ? FND. PSYCH: nl affect, AOx3 Objective Lab Results 08/16/24 08:00 08/16/24 08:00 Microbiology Results Microbiology 08/15/24 11:23 Abdomen - Abscess Aerobic Culture - Preliminary Staphylococcus aureus 08/15/24 11:23 Abdomen - Abscess Anaerobic Culture - Preliminary No Anaerobes Isolated 1 Day Meds Allergies and Active Meds Allergies No Known Allergies Allergy (Verified 08/08/24 19:47) Active Meds: Active Medications Generic Name Dose Route Start Last Admin Trade Name Leslye PRN Reason Stop Dose Admin Acetaminophen 1,000 mg 08/14/24 22:18 08/16/24 08:55 Acetaminophen 500 Mg Tablet PO 08/14/25 22:17 1,000 mg Q6HR PRN Administration Pain Scale 1 - 3 or fever Dextrose 0 gm 08/14/24 22:18 Dextrose 50% In Water 25 Gm/50 Ml Syringe IV-PUSH 08/14/25 22:17 PRN PRN Hypoglycemia Glucose 0 gm 08/14/24 22:18 Dextrose 40% Gel 15 Gm Tube PO 08/14/25 22:17 PRN PRN Hypoglycemia Vancomycin HCl 1.75 gm/ 500 mls @ 250 mls/hr 08/16/24 12:00 08/16/24 12:54 Dextrose IV 08/16/25 11:59 250 mls/hr Q8H SANDI Administration Insulin Aspart 0 units 08/15/24 08:00 08/16/24 12:55 Insulin Aspart 300 Units/3 Ml SUBCUT 08/15/25 07:59 5 units TID.WM.HS SANDI Administration Protocol Insulin Aspart 0 units 08/15/24 17:00 08/16/24 12:56 Insulin Aspart 300 Units/3 Ml SUBCUT 08/15/25 16:59 3 units TID.WITH.MEALS SANDI Administration Protocol Insulin Glargine 15 units 08/15/24 09:00 08/16/24 08:57 Insulin Glargine 300 Units/3 Ml Insuln.Pen SUBCUT 08/15/25 08:59 15 units DAILY SANDI Administration Morphine Sulfate 4 mg 08/16/24 11:00 Morphine Sulfate 4 Mg/Ml Cartridge IV-PUSH Q4H PRN Pain Scale 8 - 10 Naproxen 250 mg 08/16/24 12:00 08/16/24 12:55 Naproxen 250 Mg Tablet PO 08/16/25 11:59 250 mg TID.WITH.MEALS SANDI Administration Ondansetron HCl 4 mg 08/14/24 22:18 Ondansetron 4 Mg/2 Ml Vial IV-PUSH 08/14/25 22:17 Q6H PRN Nausea And Vomiting Oxycodone HCl 5 mg 08/14/24 22:47 08/16/24 09:25 Oxycodone Ir 5 Mg Tablet PO 5 mg Q4HR PRN Administration Pain Scale 4 - 7 Pantoprazole Sodium 40 mg 08/15/24 07:30 08/16/24 06:33 Pantoprazole 40 Mg Tablet. PO 08/15/25 07:29 Not Given DAILY.AC.BKFAST SANDI Sodium Chloride 0 ml 08/15/24 06:00 08/16/24 06:33 Sodium Chloride 0.9 % 10 Ml Syringe IV-PUSH 08/15/25 05:59 Not Given QSHIFT SANDI Sodium Chloride 10 ml 08/15/24 11:04 08/16/24 02:55 Sodium Chloride 0.9 % 10 Ml Syringe IV-PUSH 08/15/25 11:03 10 ml PRN PRN Administration Flush Sterile Water 0 ml 08/15/24 14:00 08/16/24 08:57 Water For Injection,Sterile 10 Ml Vial IRRIGATION 08/15/25 13:59 10 ml QID SANDI Administration Vancomycin HCl 1 each 08/14/24 22:18 Vancomycin - Pharmacy Dosing 1 Each Miscell IV ONCE PRN ZZ.Pharmacy Consult Protocol A&P - Hospitalist Assessment/Plan (1) Type 1 diabetes mellitus: (2) Intractable pain: Plan Documented By: Vicky Espino MD 08/16/24 1330 Signed By: 08/16/24 1830 [facility]02-07-2025 Progress note Author Vicky Espino [facility] Note Date/Time August 15, 2024 5 :40pm [facility] [address] [place] [address] Hospitalist Progress Note Signed Patient: Isaias Estrella MR#: [id number] : 2000 Acct:[id number] Age/Sex: 24 / M Adm Date: 5 Loc: Room: [address] [place] [address] Type: ADM IN Attending Dr: Vicky sEpino MD Copies to: ~ Date of Service: 08/15/2024 Subjective Subjective Narrative: Assessment And Plan 24M with PMH of DM the presented to [facility] ER for intractable upper right leg pain and transferred for the evaluation and treatment of suspected Right iliac abscess Sepsis related to above Intractable pain Pain is better after the drainage in his right upper thigh. no back pain today , no fever CT lumbar spine wo con ([facility]) 2/4 At L5-S1, grade 1 spondylolysis spondylolisthesis of L5 on S1 with mild stenosis of the right neural foramen. CT abdomen pelvis w con ([facility]) Prominent low-attenuation collection within the right iliac (The central portion of the collection measures approximately 7.1 x 4 x 12.5 cm. This extends inferiorly to the insertion of the proximal right femur) Follow Blood culture at [facility] if done. i was told yesterday by ED physician it was done but no result so far WBC 13K CRP [address] guided drained Drainage Culture pending Pain control IV vancomycin ID was consulted, recommendation appreciated. d/w Dr Samanta MOONEY blood sugars were reviewed sliding scale insulin and accuchecks. basal insulin prandial insulin: carb coverage. hypoglycemia protocol. Lung nodule CT Abd reported 4 to 5 mm nodule at the left lung base. There is no pleural effusion. outpatient follow up INTERVAL HPI: As Above, Pt resting in bed. pain is better . Denies any chest pain, SOB Chronic diseases: Unless mentioned Above, Essential home medications have been continued. DVT Px: no risk ; ambulation Disposition: To be determined Plan of care Discussed with: the medical team, the patient L Exam Physical Exam Vital Signs: Temp Pulse Resp BP Pulse Ox O2 Del Method 37.2 C 101 H 16 110/71 99 Room Air 08/15/24 11:54 08/15/24 11:54 08/15/24 11:54 08/15/24 11:54 08/15/24 11:54 08/15/24 12:00 Narrative: GEN: NAD, Cooperative LUNGS: CTA. CV: nl S1 S2; no M/R/G, ABD: Soft, ND, NT, + BS, ? ? HSM EXT: right groin , upper thigh tenderness No peripheral edema, No calf muscle tenderness NEURO: ? FND. PSYCH: nl affect, AOx3 Const General: in distress (In pain and winces frequently) and ill appearing Limitations: mental status not altered HEENT Head: normal to inspection Nose: external nose normal Face and sinus: normal facial exam Mouth: oral mucosae normal Throat: posterior oropharynx normal Eyes General: appearance normal, both eyes and all related structures Neck Neck: normal visual inspection Chest Chest palpation & inspection: normal inspection of the chest Resp Effort & Inspection: normal respiratory effort and no audible wheezes Auscultation: clear to auscultation bilaterally, no rales, no rhonchi and no wheezes Cardio Rate: regular rate Rhythm: regular rhythm Heart Sounds: S1 normal, S2 normal, no gallops, no murmurs and no rubs GI Inspection: normal to inspection Palpation: soft, no hepatosplenomegaly, not firm, no guarding, not rigid and tender in the RLQ and psoas sign positive Skin Wounds: wounds noted (Healing burn on the right thigh without erythema or drainage) Neuro General: patient alert, patient awake and patient oriented x3 Extrem General: normal to inspection Objective Lab Results 08/15/24 05:48 08/15/24 05:48 Meds Allergies and Active Meds Allergies No Known Allergies Allergy (Verified 08/08/24 19:47) Active Meds: Active Medications Generic Name Dose Route Start Last Admin Trade Name Freq PRN Reason Stop Dose Admin Acetaminophen 1,000 mg 08/14/24 22:18 08/14/24 23:09 Acetaminophen 500 Mg Tablet PO 08/14/25 22:17 1,000 mg Q6HR PRN Administration Pain Scale 1 - 3 or fever Dextrose 0 gm 08/14/24 22:18 Dextrose 50% In Water 25 Gm/50 Ml Syringe IV-PUSH 08/14/25 22:17 PRN PRN Hypoglycemia Glucose 0 gm 08/14/24 22:18 Dextrose 40% Gel 15 Gm Tube PO 08/14/25 22:17 PRN PRN Hypoglycemia Vancomycin HCl 1 gm in 250 mls @ 250 mls/hr 08/15/24 01:00 08/15/24 08:09 Vancomycin IV 250 mls/hr Q8H SANDI Administration Insulin Aspart 0 units 08/15/24 08:00 08/15/24 12:04 Insulin Aspart 300 Units/3 Ml SUBCUT 08/15/25 07:59 4 units TID.WM.HS SANDI Administration Protocol Insulin Aspart 0 units 08/15/24 17:00 Insulin Aspart 300 Units/3 Ml SUBCUT 08/15/25 16:59 TID[facility] Protocol Insulin Glargine 15 units 08/15/24 09:00 08/15/24 08:00 Insulin Glargine 300 Units/3 Ml Insuln.Pen SUBCUT 08/15/25 08:59 15 units DAILY SANDI Administration Ketorolac Tromethamine 15 mg 08/15/24 13:50 Ketorolac Tromethamine 15 Mg/Ml Vial IV-PUSH Q6H PRN Pain Scale 6 - 10 Ondansetron HCl 4 mg 08/14/24 22:18 Ondansetron 4 Mg/2 Ml Vial IV-PUSH 08/14/25 22:17 Q6H PRN Nausea And Vomiting Oxycodone HCl 5 mg 08/14/24 22:47 08/15/24 12:02 Oxycodone Ir 5 Mg Tablet PO 5 mg Q4HR PRN Administration Pain Scale 4 - 7 Pantoprazole Sodium 40 mg 08/15/24 07:30 08/15/24 06:40 Pantoprazole 40 Mg Tablet.Dr DOUGLAS 08/15/25 07:29 40 mg DAILY.AC.BKFAST SANDI Administration Sodium Chloride 0 ml 08/15/24 06:00 08/15/24 13:26 Sodium Chloride 0.9 % 10 Ml Syringe IV-PUSH 08/15/25 05:59 Not Given QSHIFT SANDI Sodium Chloride 10 ml 08/15/24 11:04 Sodium Chloride 0.9 % 10 Ml Syringe IV-PUSH 08/15/25 11:03 PRN PRN Flush Sterile Water 0 ml 08/15/24 14:00 Water For Injection,Sterile 10 Ml Vial IRRIGATION 08/15/25 13:59 QID SANDI Vancomycin HCl 1 each 08/14/24 22:18 Vancomycin - Pharmacy Dosing 1 Each Miscell IV ONCE PRN ZZ.Pharmacy Consult Protocol A&P - Hospitalist Assessment/Plan (1) Type 1 diabetes mellitus: (2) Intractable pain: Plan Documented By: Vicky Espino MD 08/15/24 1402 Signed By: <Electronically signed by Vicky Espino MD> 08/15/24 9147 [facility] Work Phone: [phone]) 484-136502-07-[address] [address] Hospitalist Progress Note Signed Patient: Isaias Estrella MR#: [id number] : 2000 Acct:[id number] Age/Sex: 24 / M Adm Date: 5 Loc: 3T Room: [address] [place] [address] Type: ADM IN Attending Dr: Vicky Espino MD Copies to: ~ Date of Service: 08/15/2024 Subjective Subjective Narrative: Assessment And Plan 24M with PMH of DM the presented to [facility] ER for intractable upper right leg pain and transferred for the evaluation and treatment of suspected Right iliac abscess Sepsis related to above Intractable pain Pain is better after the drainage in his right upper thigh. no back pain today , no fever CT lumbar spine wo con ([facility]) 2/4 At L5-S1, grade 1 spondylolysis spondylolisthesis ofL5 on S1 with mild stenosis of the right neural foramen. CT abdomen pelvis w [facility] ([facility]) Prominent low-attenuation collection within the right iliac (The central portion of the collection measures approximately 7.1 x 4 x 12.5 cm. This extends inferiorly to the insertion of the proximal right femur) Follow Blood culture at [facility] if done. i was told yesterday by ED physician it was done but no result so far WBC 13K CRP [address] guided drained Drainage Culture pending Pain control IV vancomycin ID was consulted, recommendation appreciated. d/w Dr Samanta MOONEY blood sugars were reviewed sliding scale insulin and accuchecks. basal insulin prandial insulin: carb coverage. hypoglycemia protocol. Lung nodule CT Abd reported 4 to 5 mm nodule at the left lung base. There is no pleural effusion. outpatient follow up INTERVAL HPI: As Above, Pt resting in bed. pain is better . Denies any chest pain, SOB Chronic diseases: Unless mentioned Above, Essential home medications have been continued. DVT Px: no risk ; ambulation Disposition: To be determined Plan of care Discussed with: the medical team, the patient L Exam Physical Exam Vital Signs: Temp Pulse Resp BP Pulse Ox O2 Del Method 37.2 C 101 H 16 110/71 99 Room Air 08/15/24 11:54 08/15/24 11:54 08/15/24 11:54 08/15/24 11:54 08/15/24 11:54 08/15/24 12:00 Narrative: GEN: NAD, Cooperative LUNGS: CTA. CV: nl S1 S2; no M/R/G, ABD: Soft, ND, NT, + BS, ? ? HSM EXT: right groin , upper thigh tenderness No peripheral edema, No calf muscle tenderness NEURO: ? FND. PSYCH: nl affect, AOx3 Const General: in distress (In pain and winces frequently) and ill appearing Limitations: mental status not altered HEENT Head: normal to inspection Nose: external nose normal Face and sinus: normal facial exam Mouth: oral mucosae normal Throat: posterior oropharynx normal Eyes General: appearance normal, both eyes and all related structures Neck Neck: normal visual inspection Chest Chest palpation & inspection: normal inspection of the chest Resp Effort & Inspection: normal respiratory effort and no audible wheezes Auscultation: clear to auscultation bilaterally, no rales, no rhonchi and no wheezes Cardio Rate: regular rate Rhythm: regular rhythm Heart Sounds: S1 normal, S2 normal, no gallops, no murmurs and no rubs GI Inspection: normal to inspection Palpation: soft, no hepatosplenomegaly, not firm, no guarding, not rigid and tender in the RLQ and psoas sign positive Skin Wounds: wounds noted (Healing burn on the right thigh without erythema or drainage) Neuro General: patient alert, patient awake and patient oriented x3 Extrem General: normal to inspection Objective Lab Results 08/15/24 05:48 08/15/24 05:48 Meds Allergies and Active Meds Allergies No Known Allergies Allergy (Verified 08/08/24 19:47) Active Meds: Active Medications Generic Name Dose Route Start Last Admin Trade Name Freq PRN Reason Stop Dose Admin Acetaminophen 1,000 mg 08/14/24 22:18 08/14/24 23:09 Acetaminophen 500 Mg Tablet PO 08/14/25 22:17 1,000 mg Q6HR PRN Administration Pain Scale 1 - 3 or fever Dextrose 0 gm 08/14/24 22:18 Dextrose 50% In Water 25 Gm/50 Ml Syringe IV-PUSH 08/14/25 22:17 PRN PRN Hypoglycemia Glucose 0 gm 08/14/24 22:18 Dextrose 40% Gel 15 Gm Tube PO 08/14/25 22:17 PRN PRN Hypoglycemia Vancomycin HCl 1 gm in 250 mls @ 250 mls/hr 08/15/24 01:00 08/15/24 08:09 Vancomycin IV 250 mls/hr Q8H SANDI Administration Insulin Aspart 0 units 08/15/24 08:00 08/15/24 12:04 Insulin Aspart 300 Units/3 Ml SUBCUT 08/15/25 07:59 4 units TID.WM.HS SANDI Administration Protocol Insulin Aspart 0 units 08/15/24 17:00 Insulin Aspart 300 Units/3 Ml SUBCUT 08/15/25 16:59 [facility] Protocol Insulin Glargine 15 units 08/15/24 09:00 08/15/24 08:00 Insulin Glargine 300 Units/3 Ml Insuln.Pen SUBCUT 08/15/25 08:59 15 units DAILY SANDI Administration Ketorolac Tromethamine 15 mg 08/15/24 13:50 Ketorolac Tromethamine 15 Mg/Ml Vial IV-PUSH Q6H PRN Pain Scale 6 - 10 Ondansetron HCl 4 mg 08/14/24 22:18 Ondansetron 4 Mg/2 Ml Vial IV-PUSH 08/14/25 22:17 Q6H PRN Nausea And Vomiting Oxycodone HCl 5 mg 08/14/24 22:47 08/15/24 12:02 Oxycodone Ir 5 Mg Tablet PO 5 mg Q4HR PRN Administration Pain Scale 4 - 7 Pantoprazole Sodium 40 mg 08/15/24 07:30 08/15/24 06:40 Pantoprazole 40 Mg Tablet.Dr PO 08/15/25 07:29 40 mg DAILY.AC.BKFAST SANDI Administration Sodium Chloride 0 ml 08/15/24 06:00 08/15/24 13:26 Sodium Chloride 0.9 % 10 Ml Syringe IV-PUSH 08/15/25 05:59 Not Given QSHIFT SANDI Sodium Chloride 10 ml 08/15/24 11:04 Sodium Chloride 0.9 % 10 Ml Syringe IV-PUSH 08/15/25 11:03 PRN PRN Flush Sterile Water 0 ml 08/15/24 14:00 Water For Injection,Sterile 10 Ml Vial IRRIGATION 08/15/25 13:59 QID SANDI Vancomycin HCl 1 each 08/14/24 22:18 Vancomycin - Pharmacy Dosing 1 Each Miscell IV ONCE PRN ZZ.Pharmacy Consult Protocol A&P - Hospitalist Assessment/Plan (1) Type 1 diabetes mellitus: (2) Intractable pain: Plan Documented By: Vicky Espino MD 08/15/24 1402 Signed By: 08/15/24 1740 [facility]02-07-2025 Consult note Author Jorge England [facility] Note Date/Time August 15, 2024 1 2:24pm [facility] [address] [place] [address] Infect. Disease Consult Note Signed Patient: Isaias Estrella MR#: [id number] : 2000 Acct:[id number] Age/Sex: 24 / M Adm Date: 5 Loc: Room: [address] [place] [address] Type: ADM IN Attending Dr: Vicky Espino MD Copies to: MD Jorge Martinez MD NO FAMILY PHYSICIAN~ HPI Data of Consult Consult date: 08/15/24 Requesting Physician: Vicky Espino MD Primary Care Provider: NO FAMILY PHYSICIAN Consult Narrative Reason for consult: Abcess of the iliac muscle History of present illness: Mr. Estrella is a 24 year old male who was transferred from [facility] for management of a right iliac muscle abscess. The patient does have a history of type I diabetes mellitus with a last hemoglobin A1c of 13.2 on 07/31/2024. Patient states that he has been having right lower quadrant abdominal pain for the past couple weeks. He states that the pain progressively got worse, and began to move down into his thigh. 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 He stated that time did testicular ultrasound and it appears a ct as well. Appear he was at a affiliated hospital and a CT scan though in the note from the documenting provider said nothing was seen the report clearly mentions this : 1. Asymmetric enlargement of the right iliacus muscle measuring up to 3.8 cm in thickness with the left measuring 2.5 cm. There is also mild haziness surrounding the right iliacus muscle and distal aspect of the iliopsoas muscle. Findings may be secondary to a hematoma or possible infection. Correlate with infectious symptoms. Consider further evaluation with contrast-enhanced CT or contrast-enhanced MRI. The patient states that the emergency room was concernfor DKA and had treated him as such. He returned to [facility] emergency room on 08/08/2024 after the pain persisted and began to worsen. He was given Ativan and gabapentin for the pain. He states that initially he was using [id number] NSAIDs and Tylenol which were helping somewhat, but that no longer was fixing the pain. He states that he is never felt better since this started. He states that there was a remote history of antibiotics for finger cellulitis back in February of last year, but otherwise no other antibiotic use. He denies any fevers, chills, nausea, vomiting, diarrhea. He has had normal appetite. He does state that he does not have bowel movements regularly, and denies that this is worsened. He denies any IV drug use. He does state that when he was around 6 years old he had back pain that was intractable and was seen in the hospital where they found fluid collection around his spine. He is treated with antibiotics and stated that that made him feel better. Yesterday the patient states that the pain became so much worse that he decided to be seen at the [facility] emergency room. He states that he was having fevers and chills at home. At the [facility] they hadfound that his ESR was 91 and CRP was 27.9. They did a CT of the abdomen with and without contrast which was concerning for a loculated abscess that was measuring 4.2 x 7.2 x 10 cm. IR was consulted and patient was transferred here for further management. Upon transfer to [facility] the patient had a leukocytosis, and it Tmax of 100.1 ?F. He was started on vancomycin at the [facility] which was continued upon arrival to [facility]. He has been afebrile, but is tachycardic. He is not requiring pressors. The patient denies IVDU, recent travel, antibiotic use, or hospitalizations. He endorses pain. He denies current fevers or chills. No nausea or vomtting, diarrhea, or anorexia. No coughing or wheezing. No obvious wounds or abcesses. Infectious diseases been consulted for recommendations of antibiotics for the abscess. CC: Vicky Espino MD Review of Systems Review of Systems All other systems reviewed & are negative unless noted below or in [facility] Medical History BMI 22.0-22.9, adult Dietary counseling and surveillance Insulin long-term use Type 1 diabetes mellitus Surgical History History of wisdom tooth extraction Family History Father Suicide Healthy adult Mother Congestive heart failure Rheumatoid arthritis Brother Healthy adult Social History Smoking Status: Current every day smoker Tobacco Type: cigarettes and e-cigarettes Substance Use Type: None Allergies and Medications Allergies and Active Meds Allergies No Known Allergies Allergy (Verified 08/08/24 19:47) Active Medications Acetaminophen (Acetaminophen 500 Mg Tablet) 1,000 mg PO Q6HR PRN PRN Reason: Pain Scale 1 - 3 or fever Stop: 08/14/25 22:17 Last Admin: 08/14/24 23:09 Dose: 1,000 mg Dextrose (Dextrose 50% In Water 25 Gm/50 Ml Syringe) 0 gm IV-PUSH PRN PRN PRN Reason: Hypoglycemia Stop: 08/14/25 22:17 Fentanyl Citrate (Fentanyl/Pf 100 Mcg/2 Ml Vial) 50 mcg IV-PUSH Q4H PRN PRN Reason: Pain Scale 8 - 10 Last Admin: 08/15/24 07:54 Dose: 50 mcg Glucose (Dextrose 40% Gel 15 Gm Tube) 0 gm PO PRN PRN PRN Reason: Hypoglycemia Stop: 08/14/25 22:17 Vancomycin HCl (Vancomycin) 1 gm in 250 mls @ 250 mls/hr IV Q8H SANDI Last Admin: 08/15/24 08:09 Dose: 250 mls/hr Lactated Ringer's (Lactated Ringers) 1,000 mls @ 100 mls/hr IV .Q10H SANDI Stop: 08/15/24 10:29 Last Admin: 08/15/24 01:20 Dose: 100 mls/hr Insulin Aspart (Insulin Aspart 300 Units/3 Ml) 0 units SUBCUT TID.WM.[facility]; Protocol Stop: 08/15/25 07:59 Last Admin: 08/15/24 07:57 Dose: 6 units Insulin Glargine (Insulin Glargine 300 Units/3 Ml Insuln.Pen) 15 units SUBCUT DAILY [facility] Stop: 08/15/25 08:59 Last Admin: 08/15/24 08:00 Dose: 15 units Ondansetron HCl (Ondansetron 4 Mg/2 Ml Vial) 4 mg IV-PUSH Q6H PRN PRN Reason: Nausea And Vomiting Stop: 08/14/25 22:17 Oxycodone HCl (Oxycodone Ir 5 Mg Tablet) 5 mg PO Q4HR PRN PRN Reason: Pain Scale 4 - 7 Last Admin: 08/15/24 06:40 Dose: 5 mg Pantoprazole Sodium (Pantoprazole 40 Mg Tablet.Dr) 40 mg PO DAILY.AC.BK[facility]ST [facility] Stop: 08/15/25 07:29 Last Admin: 08/15/24 06:40 Dose: 40 mg Sodium Chloride (Sodium Chloride 0.9 % 10 Ml Syringe) 0 ml IV-PUSH QSHIFT [facility] Stop: 08/15/25 05:59 Last Admin: 08/15/24 06:40 Dose: 10 ml Vancomycin HCl (Vancomycin - Pharmacy Dosing 1 Each Miscell) 1 each IV ONCE PRN; Protocol PRN Reason: ZZ.Pharmacy Consult Exam Physical Exam Vital Signs: Temp Pulse Resp BP Pulse Ox O2 Del Method 99.7 F H 109 H 18 111/65 97 Room Air 08/15/24 07:52 08/15/24 07:52 08/15/24 07:52 08/15/24 07:52 08/15/24 07:52 08/15/24 07:52 Const General: in distress (In pain and winces frequently) and ill appearing Limitations: mental status not altered HEENT Head: normal to inspection Nose: external nose normal Face and sinus: normal facial exam Mouth: oral mucosae normal Throat: posterior oropharynx normal Eyes General: appearance normal, both eyes and all related structures Neck Neck: normal visual inspection Chest Chest palpation & inspection: normal inspection of the chest Resp Effort & Inspection: normal respiratory effort and no audible wheezes Auscultation: clear to auscultation bilaterally, no rales, no rhonchi and no wheezes Cardio Rate: regular rate Rhythm: regular rhythm Heart Sounds: S1 normal, S2 normal, no gallops, no murmurs and no rubs GI Inspection: normal to inspection Palpation: soft, no hepatosplenomegaly, not firm, no guarding, not rigid and tender in the RLQ and psoas sign positive Skin Wounds: wounds noted (Healing burn on the right thigh without erythema or drainage) Neuro General: patient alert, patient awake and patient oriented x3 Extrem General: normal to inspection Results - Infectious Disease Labs 08/15/24 05:48 08/15/24 05:48 Labs: 08/15/24 05:48: Corrected WBC 13.9 H, Uncorrected WBC Count 13.9 H, BUN 12, Creatinine 0.63 L Microbiology Results Microbiology Narrative: 08/15/24 11:23 Aerobic Culture - Pending Leg,Right - Abscess Anaerobic Culture - Pending Gram Stain - Pending Imaging and Cardiology Status: report viewed by me A&P - Infectious Disease (1) Abscess of right iliac fossa: Plan Mr. Estrella is a 24-year-old male with a past medical history of diabetes type 1 and a last known A1c of 13.2 from July 2024 who was transferred from the [facility] for a abscess in the iliac fossa on the right side. Patient did state that he was having some fevers and chills the past couple of days. Hehas been on 12 hours of vancomycin, and states that the pain has not gotten any better with the Vanco. Since drainage already early this morning he states he does feel some relief probably because some of the pressure has been relieved. Currently has a GEORGES drain in. Not much actually in the bulb as of yet. Per the radiology team the abscess of the right iliac fossa was loculated and quite large. The plan is that he will have a percutaneous drainage of the abscess with a drain placement today. Will follow for cultures. Denies IVDU. He is appropriately covered for MRSA/staph other routine gram-positive's. Await for culture to return and adjust if needed. If loculated for which it appears it ismay require either additional drainage or prolonged course of antibiotics with serial CT scans. I performed a history and physical examination of the patient and discussed his/her management with the resident/student. I reviewed the resident?s/student's note and agree with the documented findings and plan of care. Documented By: Jorge England MD 08/15/24 0904 Signed By: <Electronically signed by MD Jorge England> 08/15/24 1224 [facility] Work Phone: [phone] Radiology Diagnostic study [facility] [place] [address] CT Scan Report Signed Patient: Isaias Estrella MR#: [id number] : 2000 Acct:[id number] Age/Sex: 24 / M ADM Date: 5 Loc: Room: [address] [place] [address] Type: ADM IN Attending Dr: Vicky Espino MD Copies to: Vicky Espino MD~ Ordering Provider: Vicky Espino MD Date of Service: 08/15/24 US/US abdomen limited: ? abcess per Radiologist ([id number]) CT/CT guided drainage: ABSCESS DRAIN CT GUIDED right iliopsoas muscle abscess drainage with pigtail catheter placement.: CLINICAL HISTORY: Right iliopsoas muscle abscess COMPARISON : Outside CT abdomen and pelvis 08/14/2024 FINDINGS: After questions were answered, informed consent was obtained. The patient was initially brought into the ultrasound suite and imaging of the abdomen/right groin region demonstrates a loculated collection involving the right iliopsoas muscle only partially visualized by ultrasound. Given the partial visualization, the patient was then moved to the CT scanner. The patient was placed supineon the CT table and the right iliopsoas abscess wasselected for drainage. The skin over the right iliopsoas abscesswas prepped and draped in normal sterile fashion. 1% lidocaine was utilized for local anesthesia. Utilizing CT guidance, an 8 Greek pigtail drain was advanced into the abscess via trocar approach. Approximately 100 mL of purulent material was aspirated from the drain and sent to pathology for further evaluation. The drain was pigtailed in place and attached to the skin with a stay fix. The drain was placed to bulb suction. The patient tolerated procedure well without immediate complication. Please note that the patient was monitored throughout the procedure by nursing personnel. This CT exam was performed using one or more following dose reduction techniques: Automated exposure control, adjustment of the mA and/or kV accordingto patient size, or use of iterative reconstruction technique. CT/CT guided drainage IMPRESSION: Successful CT-guided abscess drainage. Impression dictated by: Jhon Bhardwaj Jr., D.OMatilde08/15/2024 2:16 PM Dictation Location: [place] [address] Transcribed By: [facility] 08/15/24 1416 Dictated By: Jhon Bhardwaj Jr, DO 08/15/24 1354 Signed By: 08/15/24 1416 [facility]02-07-2025 [place] [id number] Infect. Disease Consult Note Signed Patient: Isaisa Estrella MR#: [id number] : 2000 Acct:[id number] Age/Sex: 24 / M Adm Date: 5 Loc: Room: [address] [place] [address] Type: ADM IN Attending Dr: Vicky Espino MD Copies to: MD Jorge Martinez MD NO FAMILY PHYSICIAN~ HPI Data of Consult Consult date: 08/15/24 Requesting Physician: Vicky Espino MD Primary Care Provider: NO FAMILY PHYSICIAN Consult Narrative Reason for consult: Abcess of the iliac muscle History of present illness: Mr. Estrella is a 24 year old male who was transferred from [facility] for management of a rightiliac muscle abscess. The patient does have a history of type I diabetes mellitus with a last hemoglobin A1c of 13.2 on 07/31/2024. Patient states that he has been having right lower quadrant abdominal pain for the past couple weeks. He states that the pain progressively got worse, and began to movedown into his thigh. 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 He stated that time did testicular ultrasound and it appears a ctas well. Appear he was at a affiliated hospital and a CT scan though in the note from the documenting provider said nothing was seen the report clearly mentions this : 1. Asymmetric enlargement of the right iliacus muscle measuring up to 3.8 cm in thickness with the left measuring 2.5 cm. There is also mild haziness surrounding the right iliacus muscle and distalaspect of the iliopsoas muscle. Findings may be secondary to a hematoma or possible infection. Correlate with infectious symptoms. Consider further evaluation with contrast-enhanced CT or contrast-enhanced MRI. The patient states that the emergency room was concernfor DKA and had treated him as such. He returned to [facility] emergency room on 08/08/2024 after the pain persisted and began to worsen. He was given Ativan and gabapentin for the pain. He states that initially he was using uabl-urt-aayskye NSAIDs and Tylenol which were helping somewhat, but that no longer wasfixing the pain. He states that he is never felt better since this started. He states that there was a remote history of antibiotics for finger cellulitis back in February of last year, but otherwise no other antibiotic use. He denies any fevers, chills, nausea, vomiting, diarrhea. He has had normal appetite. He does state that he does not have bowel movements regularly, and denies that this is worsened. He denies any IV drug use. He does state that when he was around 6 years old he had back painthat was intractable and was seen in the hospital where they found fluid collection around his spine. He is treated with antibiotics and stated that that made him feel better. Yesterday the patient states that the pain became so much worse that he decided to be seen at the [facility] emergency room. He states that he was having fevers and chills at home. At the [facility] they hadfound that his ESR was 91 and CRP was 27.9. They did a CT of the abdomen with and without contrast which was concerning for a loculated abscess that was measuring 4.2 x 7.2 x 10 cm. IR was consulted andpatient was transferred here for further management. Upon transfer to [facility] the patient had a leukocytosis, and it Tmax of 100.1 ?F. He was started on vancomycin at the [facility] which was continued upon arrival to [facility]. He has been afebrile, but is tachycardic. He is not requiring pressors. The patient denies IVDU, recent travel, antibiotic use, or hospitalizations. He endorses pain. He denies current fevers or chills. No nausea or vomtting, diarrhea, or anorexia. No coughing or wheezing. No obvious wounds or abcesses. Infectious diseases been consulted for recommendations of antibiotics for the abscess. CC: Vicky Espino MD Review of Systems Review of Systems All other systems reviewed & are negative unless noted below or in [facility] Medical History BMI 22.0-22.9, adult Dietary counseling and surveillance Insulin long-term use Type 1 diabetes mellitus Surgical History History of wisdom tooth extraction Family History Father Suicide Healthy adult Mother Congestive heart failure Rheumatoid arthritis Brother Healthy adult Social History Smoking Status: Current every day smoker Tobacco Type: cigarettes and e-cigarettes Substance Use Type: None Allergies and Medications Allergies and Active Meds Allergies No Known Allergies Allergy (Verified 08/08/24 19:47) Active Medications Acetaminophen (Acetaminophen 500 Mg Tablet) 1,000 mg PO Q6HR PRN PRN Reason: Pain Scale 1 - 3 or fever Stop: 08/14/25 22:17 Last Admin: 08/14/24 23:09 Dose: 1,000 mg Dextrose (Dextrose 50% In Water 25 Gm/50 Ml Syringe) 0 gm IV-PUSH PRN PRN PRN Reason: Hypoglycemia Stop: 08/14/25 22:17 Fentanyl Citrate (Fentanyl/Pf 100 Mcg/2 Ml Vial) 50 mcg IV-PUSH Q4H PRN PRN Reason: Pain Scale 8 - 10 Last Admin: 08/15/24 07:54 Dose: 50 mcg Glucose (Dextrose 40% Gel 15 Gm Tube) 0 gm PO PRN PRN PRN Reason: Hypoglycemia Stop: 08/14/25 22:17 Vancomycin HCl (Vancomycin) 1 gm in 250 mls @ 250 mls/hr IV Q8H SANDI Last Admin: 08/15/24 08:09 Dose: 250 mls/hr Lactated Ringer's (Lactated Ringers) 1,000 mls @ 100 mls/hr IV .Q10H SANDI Stop: 08/15/24 10:29 Last Admin: 08/15/24 01:20 Dose: 100 mls/hr Insulin Aspart (Insulin Aspart 300 Units/3 Ml) 0 units SUBCUT TID.WM.[facility]; Protocol Stop: 08/15/25 07:59 Last Admin: 08/15/24 07:57 Dose: 6 units Insulin Glargine (Insulin Glargine 300 Units/3 Ml Insuln.Pen) 15 units SUBCUT DAILY [facility] Stop: 08/15/25 08:59 Last Admin: 08/15/24 08:00 Dose: 15 units Ondansetron HCl (Ondansetron 4 Mg/2 Ml Vial) 4 mg IV-PUSH Q6H PRN PRN Reason: Nausea And Vomiting Stop: 08/14/25 22:17 Oxycodone HCl (Oxycodone Ir 5 Mg Tablet) 5 mg PO Q4HR PRN PRN Reason: Pain Scale 4 - 7 Last Admin: 08/15/24 06:40 Dose: 5 mg Pantoprazole Sodium (Pantoprazole 40 Mg Tablet.Dr) 40 mg PO DAILY.AC[facility] Stop: 08/15/25 07:29 Last Admin: 08/15/24 06:40 Dose: 40 mg Sodium Chloride (Sodium Chloride 0.9 % 10 Ml Syringe) 0 ml IV-PUSH QSHIFT [facility] Stop: 08/15/25 05:59 Last Admin: 08/15/24 06:40 Dose: 10 ml Vancomycin HCl (Vancomycin - Pharmacy Dosing 1 Each Miscell) 1 each IV ONCE PRN; Protocol PRN Reason: ZZ.Pharmacy Consult Exam Physical Exam Vital Signs: Temp Pulse Resp BP Pulse Ox O2 Del Method 99.7 F H 109 H 18 111/65 97 Room Air 08/15/24 07:52 08/15/24 07:52 08/15/24 07:52 08/15/24 07:52 08/15/24 07:52 08/15/24 07:52 Const General: in distress (In pain and winces frequently) and ill appearing Limitations: mental status not altered HEENT Head: normal to inspection Nose: external nose normal Face and sinus: normal facial exam Mouth: oral mucosae normal Throat: posterior oropharynx normal Eyes General: appearance normal, both eyes and all related structures Neck Neck: normal visual inspection Chest Chest palpation & inspection: normal inspection of the chest Resp Effort & Inspection: normal respiratory effort and no audible wheezes Auscultation: clear to auscultation bilaterally, no rales, no rhonchi and no wheezes Cardio Rate: regular rate Rhythm: regular rhythm Heart Sounds: S1 normal, S2 normal, no gallops, no murmurs and no rubs GI Inspection: normal to inspection Palpation: soft, no hepatosplenomegaly, not firm, no guarding, not rigid and tender in the RLQ and psoas sign positive Skin Wounds: wounds noted (Healing burn on the right thigh without erythema or drainage) Neuro General: patient alert, patient awake and patient oriented x3 Extrem General: normal to inspection Results - Infectious Disease Labs 08/15/24 05:48 08/15/24 05:48 Labs: 08/15/24 05:48: Corrected WBC 13.9 H, Uncorrected WBC Count 13.9 H, BUN 12, Creatinine 0.63 L Microbiology Results Microbiology Narrative: 08/15/24 11:23 Aerobic Culture - Pending Leg,Right - Abscess Anaerobic Culture - Pending Gram Stain - Pending Imaging and Cardiology Status: report viewed by me A&P - Infectious Disease (1) Abscess of right iliac fossa: Plan Mr. Estrella is a 24-year-old male with a past medical history of diabetes type 1 and a last known A1c of 13.2 from July 2024 who was transferred from the [facility] for a abscess in the iliac fossa on the right side. Patient did state that he was having some fevers and chills the past coupleof days. Hehas been on 12 hours of vancomycin, and states that the pain has not gotten any better with the Vanco. Since drainage already early this morning he states he does feel some relief probablybecause some of the pressure has been relieved. Currently has a GEORGES drain in. Not much actually in the bulb as of yet. Per the radiology team the abscess of the right iliac fossa was loculated and quite large. The plan is that he will have a percutaneous drainage of the abscess with a drain placement today. Will follow for cultures. Denies IVDU. He is appropriately covered for MRSA/staph other routine gram-positive's. Await for culture to return and adjust if needed. If loculated for which it appears it ismay require either additional drainage or prolonged course of antibiotics with serial CT scans. I performed a history and physical examination of the patient and discussed his/her management with the resident/student. I reviewed the resident?s/student's note and agree with the documented findings and plan of care. Documented By: Jorge England MD 08/15/24 0904 Signed By: 08/15/24 1224 [facility]02-07-2025 NoteComment procedure scheduled at 10am with IR Right lower quadrant by iliac crest ORGANISM: Staphylococcus aureus (O:STAAUR) Quantity of Growth Heavy Growth Comment procedure scheduled at 10am with IR Right lower quadrant by iliac crest No Anaerobes Isolated 3 Days Comment procedure scheduled at 10am with IR Right lower quadrant by iliac crest Gram Stain Result 4+ White Blood Cells 4+ Gram Positive Cocci Aerobic ARTURO Charge (PCMIC38) SUSCEPTIBILITY ORGANISM: O:STAAUR ANTIBIOTIC INTERPRETATION ARTURO Azithromycin S <2 Ceftaroline S <0.5 Ciprofloxacin S <1 Clindamycin S <0.25 Daptomycin S 1 Levofloxacin S <1 Linezolid S 4 Oxacillin S 0.5 Penicillin PARDEEP >2 Tetracycline S <4 Trimethoprim/Sulfamethoxazole S <0.5 Vancomycin S 1 S = SUSCEPTIBLE I = INTERMEDIATE R = RESISTANT BLANK = DATA NOT AVAILABLE, OR DRUG NOT ADVISABLE OR TESTED R* = RESISTANCE DUE TO EXTENDED SPECTRUM BETA-LACTAMASES ESBL = EXTENDED SPECTRUM BETA-LACTAMASE TFG = THYMIDINE-DEPENDENT STRAIN PARDEEP = BETA-LACTAMASE POSITIVE IB = INDUCIBLE BETA-LACTAMASE. APPEARS IN PLACE OF 'S' WITH SPECIES KNOWN TO POSSESS INDUCIBLE BETA-LACTAMASES. POTENTIALLY THEY MAY BECOME RESISTANT TO ALL B-LACTAM DRUGS. PERFORMED BY: [address] [place] [address] PATHOLOGIST SAWYER CORK SLABS GREYSON TORRES M.D.[facility] Physician GroupComment on above: Performed By: #### CK, HS TROP, BNP, CBC, BHOB, LACTIC, PTT, CMP, PT #### [facility] [address] [place], [place] 6200602-07-2025 History and physical note Author Odette Ochoa [facility] Note Date/Time August 15, 2024 1 :41am [facility] [address] [place] [address] Hospitalist H&P Signed Patient: Isaias Estrella MR#: [id number] : 2000 Acct:[id number] Age/Sex: 24 / M Adm Date: 5 Loc: Room: [address] [place] [address] Type: ADM IN Attending Dr: Georgia Burkett MD Copies to: NO FAMILY PHYSICIAN MD Odette Vaughan, ULTRASOUND APPLICATIONS SPECIALIST~ HPI DATE OF EXAMINATION: 08/14/24 CHIEF COMPLAINT: right leg pain HISTORY OF PRESENT ILLNESS: Mr. Estrella is a 24-year-old male with a PMH of T1DM the presented to [facility] emergency room for right leg pain. Patient seen and examined upon transfer here to [facility]. He is resting in bed, in quite a bit of pain, rates pain 10/10. He states that his pain began 2 weeks ago, started in his right lower abdomen and then moved into his right testicle and groin and then down into his right thigh where he felt like charley horse pain all the way down his leg. Has been taking Tylenol, ibuprofen and naproxen liberally at home. He states of probably overdone it with these medications at home. Walking aggravates the pain, has found no relieving factors. He states little relief with dilaudid at [facility]. He does not remember injuring himself. States he had been to an emergency room in [facility] and here at [facility], was placed on gabapentin which is not helping. States an ultrasound was performed at [facility] of his testicle and it was negative. He smokes about 1pk/week cigarettes, also vapes daily. Denies alcohol or illicit drug use. [facility] chart review- CT abd/pelvis showed a prominent low-attenuationcollection with the right iliac muscle-differentials include hematoma and abscess, measures 4.2x7.2x10cm. CT of the lumbar spine shows L5-S1 grade 1 spondylolysis/spondylolisthesis of L5 on S1 with mild stenosis of the right neural foramen. CBC with a WBC count of 16, H&H 12.7/36.9. ESR 91, CRP 27.9. CMPwith a glucose of 300, ALP 185. He received 1L 0.9NS bolus, 1GM vancomycin, hydromorphone, diazepam. IR was consulted per the ER physician. He was transferred [facility] to [facility] as inpatient to the med/surg tele floor under the care of the hospitalist team. 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 Meds Medications and Allergies Allergies No Known Allergies Allergy (Verified 08/08/24 19:47) Home Medications blood sugar diagnostic (True Metrix Glucose Test Strip) #400 ea 07/31/24 [Rx Confirmed 07/31/24] blood-glucose sensor (FreeStyle Stephanie 3 Plus Sensor device) #2 ea 07/31/24 [Rx Confirmed 07/31/24] lancets 33 gauge #360 ea 07/31/24 [Rx Confirmed 07/31/24] omeprazole 20 mg capsule,delayed release 20 mg PO DAILY 07/31/24 [History Confirmed 08/14/24] pen needle, diabetic 32 gauge x 5/32 (BD Laina 2nd Gen Pen Needle) #400 ea 07/31/24 [Rx Confirmed 07/31/24] Humalog KwikPen Insulin 100 unit/mL subcutaneous (insulin lispro) See Rx Instructions subcut USEASDIRECTD #30 mL 08/05/24 [Rx Confirmed 08/14/24] gabapentin 100 mg capsule 100 mg PO DAILY #20 caps 08/08/24 [Rx Confirmed 08/14/24] insulin glargine 100 unit/mL (3 mL) subcutaneous pen (Lantus Solostar U-100 Insulin) 15 unit subcut AC 08/14/24 [History Confirmed 08/14/24] Exam Physical Exam Vital Signs: Temp Pulse Resp BP Pulse Ox O2 Del Method 99.4 F H 109 H 26 H 128/83 98 Room Air 08/14/24 22:06 08/14/24 22:06 08/14/24 22:06 08/14/24 22:06 08/14/24 22:06 08/14/24 22:06 Narrative: CONST- Appears well -developed and well nourished. Ill appearing, in pain HEAD - Normocephalic and atraumatic EENT-Sclera nonicteric, conjunctive are non-erythemic, moist oral mucosa, pharynx clear NECK-Supple, no cervical lymphadenopathy CARDIAC- tachycardic, regular rhythm, S1 & S2. PULM-diminished without wheeze or rhonchi, RA, no accessory muscle use or cough noted ABD - Soft. Bowel sounds are normal. No distention. tenderness, rebound tenderness, guarding to RLQ EXTREM-no edema BLE calves, tenderness and pain to right groin and right thigh SKIN- W/D good turgor MS- MAEX4 spontaneously with equal with equal strength- pain to RLE NEURO- A&Ox3 speech clear and tongue midline, equal facial symmetry, no focal motor deficits PSYCH-Mood, affect, and behavior appropriate Assessment & Plan Assessment/Plan (1) Sepsis: (2) Abscess of right iliac fossa: (3) Acute leg pain: (4) Type 1 diabetes mellitus: (5) Intractable pain: Plan Sepsis- likely due to right iliac abscess, with leukocytosis, tachycardia, increased lactic acid, abscess to right iliac muscle, no hypotension seen Acute right leg pain Right iliac abscess - Consult IR-notified per ER [facility] physician, procedure scheduled for 10am 08/15/24 - Culture fluid from procedure-deep wound culture order in - PT/INR ordered for am - Continue vancomycin- pharmacy to dose - 25mcg fentanyl IV x 1 for pain now, fentanyl 50mcg IV q4h prn pain 8-10, oxy 5mg po q4h prn pain 4-7 - Acetaminophen as needed for fever/pain - CBC, BMP, Mag, PTT, INR in am - Consult ID T1DM- fingersticks ACHS, SSIC, basal insulin DVT PPx?SCDs Diet order?1800 ADA, n.p.o. midnight CODE STATUS?full code Attending Physician Attestation: I personally reviewed the history, performed the barkley elements of the exam, formulated the plan of care and confirmed the written note. I agree with the findings and plan as documented in this note and have edited it if needed to reflect my findings and plan. Georgia Camacho MD IP vs OBS Justification Based on differential dx, clinical care plan, and risk of adverse events, if untreated, in my clinical judgement this patient requires an acute care setting as: INPATIENT because of an expectation of an over 2 midnight stay. Estimated length of stay (# of days): 3 Documented By: Odette Ochoa APRN 08/14/24 2226 Signed By: <Electronically signed by SOFIA Ochoa> 08/15/24 0027 <Electronically signed by Georgia Burkett MD> 08/15/24 0141 [facility] Work Phone: 1(879) 203-581402-07-2025 [place] [address] Hospitalist H&P Signed Patient: Isaias Estrella MR#: [id number] : 2000 Acct:[id number] Age/Sex: 24 / M Adm Date: 5 Loc: Room: [address] [place] [address] Type: ADM IN Attending Dr: Georgia Burkett MD Copies to: NO FAMILY PHYSICIAN MD Odette Vaughan, SOFIA~ HPI DATE OF EXAMINATION: 08/14/24 CHIEF COMPLAINT: right leg pain HISTORY OF PRESENT ILLNESS: Mr. Estrella is a 24-year-old male with a PMH of T1DM the [facility]. Patient seen and examined upon transfer here to [facility]. He is resting in bed, in quite a bit of pain, rates pain 10/10. He states that his pain began 2 weeks ago, started in his right lower abdomen and then moved into his right testicle and groin and then down into his right thigh where he felt like charley horse pain all the way down his leg. Has been taking Tylenol, ibuprofen and naproxen liberally at home. He states of probably overdone it with these medications at home. Walking aggravates the pain, has found no relieving factors. He states lit tle relief with dilaudid at [facility]. He does not remember injuring himself. States he had been to an emergency room in [facility] and here at [facility], was placed on gabapentin which is not helping. States an ultrasound was performed at [facility] of his testicle and it was negative. He smokes about 1pk/week cigarettes, also vapes daily. Denies alcohol or illicitdrug use. [facility] chart review- CT abd/pelvis showed a prominent low- attenuationcollection with theright iliac muscle-differentials include hematoma and abscess, measures 4.2x7.2x10cm. CT of the lumbar spine shows L5-S1 grade 1 spondylolysis/spondylolisthesis of L5 on S1 with mild stenosis of the right neural foramen. CBC with a WBC count of 16, H&H 12.7/36.9. ESR 91, CRP 27.9. CMPwith a glucose of 300, ALP 185. He received 1L 0.9NS bolus, 1GM vancomycin, hydromorphone, diazepam. IR was consulted per the ER physician. He was transferred here to [facility] as inpatient to the med/surg telefloor under the care of the hospitalist team. 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 Meds Medications and Allergies Allergies No Known Allergies Allergy (Verified 08/08/24 19:47) Home Medications blood sugar diagnostic (True Metrix Glucose Test Strip) #400 ea 07/31/24 [Rx Confirmed 07/31/24] blood-glucose sensor (FreeStyle Stephanie 3 Plus Sensor device) #2 ea 07/31/24 [Rx Confirmed 07/31/24] lancets 33 gauge #360 ea 07/31/24 [Rx Confirmed 07/31/24] omeprazole 20 mg capsule,delayed release 20 mg PO DAILY 07/31/24 [History Confirmed 08/14/24] pen needle, diabetic 32 gauge x 5/32 (BD Laina 2nd Gen Pen Needle) #400 ea 07/31/24 [Rx Confirmed 07/31/24] Humalog KwikPen Insulin 100 unit/mL subcutaneous (insulin lispro) See Rx Instructions subcut USEASDIRECTD #30 mL 08/05/24 [Rx Confirmed 08/14/24] gabapentin 100 mg capsule 100 mg PO DAILY #20 caps 08/08/24 [Rx Confirmed 08/14/24] insulin glargine 100 unit/mL (3 mL) subcutaneous pen (Lantus Solostar U-100 Insulin) 15 unit subcutAC 08/14/24 [History Confirmed 08/14/24] Exam Physical Exam Vital Signs: Temp Pulse Resp BP Pulse Ox O2 Del Method 99.4 F H 109 H 26 H 128/83 98 Room Air 08/14/24 22:06 08/14/24 22:06 08/14/24 22:06 08/14/24 22:06 08/14/24 22:06 08/14/24 22:06 Narrative: CONST- Appears well -developed and well nourished. Ill appearing, in pain HEAD - Normocephalic and atraumatic EENT-Sclera nonicteric, conjunctive are non-erythemic, moist oral mucosa, pharynx clear NECK-Supple, no cervical lymphadenopathy CARDIAC- tachycardic, regular rhythm, S1 & S2. PULM-diminished without wheeze or rhonchi, RA, no accessory muscle use or cough noted ABD - Soft. Bowel sounds are normal. No distention. tenderness, rebound tenderness, guarding to RLQ EXTREM-no edema BLE calves, tenderness and pain to right groin and right thigh SKIN- W/D good turgor MS- MAEX4 spontaneously with equal with equal strength- pain to RLE NEURO- A&Ox3 speech clear and tongue midline, equal facial symmetry, no focal motor deficits PSYCH-Mood, affect, and behavior appropriate Assessment & Plan Assessment/Plan (1) Sepsis: (2) Abscess of right iliac fossa: (3) Acute leg pain: (4) Type 1 diabetes mellitus: (5) Intractable pain: Plan Sepsis- likely due to right iliac abscess, with leukocytosis, tachycardia, increased lactic acid, abscess to right iliac muscle, no hypotension seen Acute right leg pain Right iliac abscess - Consult IR-notified per ER [facility] physician, procedure scheduled for 10am 08/15/24 - Culture fluid from procedure-deep wound culture order in - PT/INR ordered for am - Continue vancomycin- pharmacy to dose - 25mcg fentanyl IV x 1 for pain now, fentanyl 50mcg IV q4h prn pain 8-10, oxy 5mg po q4h prn pain 4-7 - Acetaminophen as needed for fever/pain - CBC, BMP, Mag, PTT, INR in am - Consult ID T1DM- fingersticks ACHS, SSIC, basal insulin DVT PPx?SCDs Diet order?1800 ADA, n.p.o. midnight CODE STATUS?full code Attending Physician Attestation: I personally reviewed the history, performed the barkley elements of the exam, formulated the plan of care and confirmed the written note. I agree with the findings and plan as documented in this note and have edited it if needed to reflect my findings and plan. Georgia Camacho MD IP vs OBS Justification Based on differential dx, clinical care plan, and risk of adverse events, if untreated, in my clinical judgement this patient requires an acute care setting as: INPATIENT because of an expectation ofan over 2 midnight stay. Estimated length of stay (# of days): 3 Documented By: Odette Ochoa, ULTRASOUND APPLICATIONS SPECIALIST 08/14/242225 Signed By: 08/15/24 0027 08/15/24 0141 [facility]02-01-2025 Evaluation note* Diagnosis Onset Date Resolution Status Admit Date BMI 22.0-22.9, adult acute Hans napoleon2024 2:57pm Dietary counseling and surveillance acute July 31 2:57pm Insulin long-term use acute Jul 2:57pm Type 1 diabetes mellitus acute July 31, 2024 2:57pm [facility] Work Phone: 1(108) 930-848301-28-2025 History of Present illness Narrative* Tracee Nolan RN - 08/05/2024 11:26 AM EST 08/05/24 1125 Discharge Planning Living Arrangements Spouse/significant other Support Systems Spouse/significant other Assistance Needed none Type of Residence Private residence Home or Post Acute Services None Expected Discharge Disposition Home Does the patient need discharge transport arranged? No Intensity of Service Intensity of Service 0-30 min Patient independent from home with his significant other. Independent in his IADLS and ADLS. He is coming to [facility] for groin pain, also DKA. Endocrin on to manage insulin. Patient to discharge home when he is medically ready. TCC to follow if needs arise. * Melvin Palma MD - 08/05/2024 7:57 AM EST Isaias Estrella is a 23 y.o. male on day 1 of admission presenting with DKA, type 1, not at goal. Subjective Patient states that the right groin pain has now progressed into his leg. He is tolerating meals well. I have reviewed histories, allergies and medications have been reviewed and there are no changes Objective Physical Exam Vitals and nursing note reviewed. Constitutional: General: He is not in acute distress. Appearance: Normal appearance. He is normal weight. HENT: Head: Normocephalic and atraumatic. Nose: Nose normal. Mouth/Throat: Mouth: Mucous membranes are moist. Eyes: Extraocular Movements: Extraocular movements intact. Pulmonary: Effort: Pulmonary effort is normal. Musculoskeletal: General: Normal range of motion. Neurological: Mental Status: He is alert and oriented to person, place, and time. Psychiatric: Mood and Affect: Mood normal. Last Recorded Vitals Blood pressure 108/71, pulse 82, temperature 36.7 C (98 F), temperature source Temporal, resp. rate17, height 1.829 m (6'), weight 68 kg (150 lb), SpO2 98%. Intake/Output last 3 Shifts: I/O last 3 completed shifts: In: 240 (3.5 mL/kg) [P.O.:240] Out: 0 (0 mL/kg) Weight: 68 kg Relevant Results Results from last 7 days Lab Units 08/05/24 0700 08/05/24 0428 08/04/24 1602 08/04/24 1112 08/04/24 0725 08/04/24 0448 08/04/24 0055 08/03/24 2057 08/03/24 2000 08/03/24 1701 08/03/24 1643 08/03/24 1441 08/03/24 1405 POCT GLUCOSE mg/dL 175* -- 291* 308* 197* -- 233* < > -- < > -- < > -- GLUCOSE mg/dL -- 200* -- -- -- 263* -- -- 137* -- 171* -- 233* < > = values in this interval not displayed. Scheduled medications ibuprofen, 400 mg, oral, TID insulin glargine, 20 Units, subcutaneous, Nightly insulin lispro, 0-10 Units, subcutaneous, TID AC insulin lispro, 5 Units, subcutaneous, TID AC polyethylene glycol, 17 g, oral, Daily Continuous medications PRN medications PRN medications: acetaminophen, dextrose, dextrose, glucagon, glucagon, ondansetron OR ondansetron, oxyCODONE-acetaminophen, traMADol Results for orders placed or performed during the hospital encounter of 08/03/24 (from the past 24 hours) POCT GLUCOSE Result Value Ref Range POCT Glucose 308 (H) 74 - 99 mg/dL POCT GLUCOSE Result Value Ref Range POCT Glucose 291 (H) 74 - 99 mg/dL CBC and Auto Differential Result Value Ref Range WBC 7.8 4.4 - 11.3 x10*3/uL nRBC 0.0 0.0 - 0.0 /100 WBCs RBC 3.64 (L) 4.50 - 5.90 x10*6/uL Hemoglobin 12.3 (L) 13.5 - 17.5 g/dL Hematocrit 35.1 (L) 41.0 - 52.0 % MCV 96 80 - 100 fL MCH 33.8 26.0 - 34.0 pg MCHC 35.0 32.0 - 36.0 g/dL RDW 11.5 11.5 - 14.5 % Platelets 154 150 - 450 x10*3/uL Neutrophils % 72.1 40.0 - 80.0 % Immature Granulocytes %, Automated 0.4 0.0 - 0.9 % Lymphocytes % 14.1 13.0 - 44.0 % Monocytes % 12.1 2.0 - 10.0 % Eosinophils % 0.9 0.0 - 6.0 % Basophils % 0.4 0.0 - 2.0 % Neutrophils Absolute 5.59 1.20 - 7.70 x10*3/uL Immature Granulocytes Absolute, Automated 0.03 0.00 - 0.70 x10*3/uL Lymphocytes Absolute 1.09 (L) 1.20 - 4.80 x10*3/uL Monocytes Absolute 0.94 0.10 - 1.00 x10*3/uL Eosinophils Absolute 0.07 0.00 - 0.70 x10*3/uL Basophils Absolute 0.03 0.00 - 0.10 x10*3/uL Basic Metabolic Panel Result Value Ref Range Glucose 200 (H) 74 - 99 mg/dL Sodium 136 136 - 145 mmol/L Potassium 3.0 (L) 3.5 - 5.3 mmol/L Chloride 100 98 - 107 mmol/L Bicarbonate 27 21 - 32 mmol/L Anion Gap 12 10 - 20 mmol/L Urea Nitrogen 9 6 - 23 mg/dL Creatinine 0.51 0.50 - 1.30 mg/dL eGFR >90 >60 mL/min/1.73m*2 Calcium 8.5 (L) 8.6 - 10.3 mg/dL POCT GLUCOSE Result Value Ref Range POCT Glucose 175 (H) 74 - 99 mg/dL CT abdomen pelvis w IV contrast Result Date: 08/03/2024 Interpreted By: Imtiaz Aly, STUDY: CT ABDOMEN PELVIS W IV CONTRAST; 08/03/2024 2:32 pm INDICATION:Signs/Symptoms:R pelvic pain, iliacus illiopsoas hematoma vs infection. COMPARISON: CT abdomen and pelvis without contrast 03 August 2024 at 0906 hours ACCESSION NUMBER(S): [id number] ORDERING CLINICIAN: JHON DEAN TECHNIQUE: CT of the abdomen and pelvis from the lung bases through the symphysis pubis after the uneventful administration of intravenous contrast (75 mL Omnipaque 350). No oral contrast. FINDINGS: LOWER CHEST: No acute airspace disease. BONES: No acute osseous findings. Right iliacus muscle expansile compared to other side. There was no acute hematoma on CT without contrast earlier today No abscess on CT with contrast presently LIVER: Normal. No enlargement or evidence of cirrhosis or fatty change. No mass or other suspect lesion. SPLEEN: Normal. No enlargement, mass or evidence of splenic vein thrombosis. PANCREAS: Normal. No CT evidence of acute or chronic pancreatitis. No duct dilation. No mass. GALLBLADDER: Normal CT appearance. No dilation, calcified, or gas-containing stones. Other types of gallstones could be occult on CT and detectable only by ultrasound. BILE DUCTS: Normal. No biliary duct dilation. ADRENAL GLANDS: Normal. No nodule or mass. KIDNEYS AND URETERS: Normal. No hydronephrosis on either side. No mass. Symmetric enhancement. No infarct or CT evidence of acute pyelonephritis. No substantial radiodense stone. Tiny stones and radiolucent stones could be occult on CT. LYMPH NODES: No adenopathy, intraperitoneal, retroperitoneal, pelvic or otherwise APPENDIX: Similar to earlier today. A portion of normal caliber proximal appendix compressed up against the back wall of the cecum but entirety of appendix not clearly delineated COLON: Normal. No sign of acute diverticulitis or other colitis. No annular constricting mass. SMALL BOWEL: Normal. No small bowel dilation or any other sign of small bowel obstruction. No sign of active inflammatory bowel disease. STOMACH / DUODENUM: Grossly normal by CT which has limited sensitivity and specificity for the stomach and duodenum. RETROPERITONEUM: Normal. No acute hemorrhage or inflammatory change. Lymph nodes in a separate dedicated section. OMENTUM, MESENTERY AND PERITONEAL SPACES: Free intraperitoneal air: Negative Free intraperitoneal fluid: Negative Abscess: Negative Other: n/a URINARY BLADDER: Distended but otherwise remains normal PELVIS: The prostate is not significantly enlarged. No pelvic mass, adenopathy or free fluid. VASCULATURE: No abdominal aortic or iliac artery aneurysm. No high grade stenosis of the major abdominal aortic branch vessels. Portal venous system patent. ABDOMINAL WALL: Hernia: Negative Other: No acute or contributory abnormality. IV contrast on the present exam could potentially obscure a muscular hematoma but there was no acute hematoma in the right iliacus muscle earlier today The present CT with contrast does not reveal a walled-off abscess in the right iliacus or anywhere else Otherwise, the remains uncertain the exact etiology of the right iliacus muscle edematous enlargement No new or newly evident acute findings with IV contrast As was the case earlier today, I suspect at least a demonstrable normal caliber proximal appendix against the back wall of the cecum but it is difficult to identify the mid and distal appendix. No calcified appendicolith No acute pancreatitis, hydronephrosis/urinary stone or any other acute solid organ findings No gallbladder or biliary duct dilation No perforation or abscess, only trace unchanged abnormal free pelvic fluid MACRO: None Signed by: Imtiaz Aly 08/03/2024 2:40 PM Dictation workstation: [id number] US scrotum w doppler Result Date: 08/03/2024 STUDY: Scrotal Ultrasound; 08/03/2024 9:48 am. INDICATION: Right testicular pain. COMPARISON: CT A/08/03/2024. ACCESSION NUMBER(S): [id number] ORDERING CLINICIAN: LAKESHA MENDOZA TECHNIQUE: Ultrasound of the scrotum and testicular spectral doppler evaluation performed. FINDINGS: The right testicle measures 5.1 x 2.3 x 3.5 cm. It demonstrates a normal homogeneous echotexture. Normal color and spectral Doppler flow is demonstrated. The right epididymal head measures 0.9 x 0.9 x 0.7 cm and demonstrates normal echogenicity. The left testicle measures 4.6 x 2.9 x 2.8 cm. It demonstrates a normal homogeneous echotexture. Normal color and spectral Doppler flow is demonstrated. The left epididymal head measures 1.2 x 0.9 x 0.8 cm and demonstrates normal echogenicity. Unremarkable scrotal ultrasound. Normal testicular spectral doppler evaluation. Signed by Sylvie Yin MD CT abdomen pelvis wo IV contrast Result Date: 08/03/2024 STUDY: CT Abdomen and Pelvis without IV Contrast; 08/03/2024 9:11 AM. INDICATION: Groin pain. COMPARISON: None Available. ACCESSION NUMBER(S): [id number] ORDERING CLINICIAN: LAKESHA MENDOZA TECHNIQUE: CT of the abdomen and pelvis was performed. Contiguous axial images were obtained at 3 mm slicethickness through the abdomen and pelvis. Coronal and sagittal reconstructions at 3 mm slice thickness were performed. No intravenous contrast was administered. Automated mA/kV exposure control was utilized and patient examination was performed in strict accordance with principles of ALARA. FINDINGS: Please note that the evaluation of vessels, lymph nodes and organs is limited without intravenouscontrast. LOWER CHEST: No cardiomegaly. No pericardial effusion. Multiple noncalcified nodules in the lung bases measuring up to 7 mm laterally in the left lower lobe ABDOMEN: LIVER: No hepatomegaly.Smooth surface contour. Normal attenuation. BILE DUCTS: No intrahepatic or extrahepatic biliary ductal dilatation. GALLBLADDER: The gallbladder is present without gallstones. STOMACH: No abnormalities identified. PANCREAS: No masses or ductal dilatation. SPLEEN: No splenomegaly or focal splenic lesion. ADRENAL GLANDS: No thickening or nodules. KIDNEYS AND URETERS: Kidneys are normal in size and location. No renal or ureteral calculi. PELVIS: BLADDER: Mild diffuse urinary bladder wall thickeningREPRODUCTIVE ORGANS: No abnormalities identified. BOWEL: . Moderate to large stool volume. A portion of the appendix is believed to be visualized and measures 5 to 6 mm, although the entire appendix is not clearly seen. VESSELS: No abnormalities identified. Abdominal aorta is normal in caliber. TERRANCE TONEUM/RETROPERITONEUM/LYMPH NODES: Trace pelvic free fluid. No pneumoperitoneum. No lymphadenopathy. ABDOMINAL WALL: No abnormalities identified. SOFT TISSUES: There is asymmetric enlargement of theright iliacus muscle measuring up to 3.8 cm in thickness with the left measuring 2.5 cm. There is also mild haziness surrounding the right iliacus muscle and distal aspect of the iliopsoas muscle BONES: No acute fracture or aggressive osseous lesion. L5 pars defects. 1. Asymmetric enlargement of the right iliacus muscle measuring up to 3.8 cm in thickness with the left measuring 2.5 cm. There is also mild haziness surrounding the right iliacus muscle and distal aspect of the iliopsoas muscle. Findings may be secondary to a hematoma or possible infection. Correlate with infectious symptoms. Consider further evaluation with contrast-enhanced CT or contrast-enhanced MRI. 2. Mild diffuse urinary bladder wall thickening. Correlate with urinalysis for possible cystitis. 3. Moderate to large stool volume. 4. Multiple noncalcified nodules in the lung bases measuring up to 7 mm laterally in the left lower lobe. Fleischner Society 2017 Guidelines for Management of Incidentally Detected Pulmonary Nodules in Adults: A. SOLID NODULES* Nodule Type and Size: Single:*Low Risk < 6 mm - No routine follow-up 6-8 mm - CT at 6-12 months, then consider CT at 18-24 months > 8 mm - Consider CT at 3 months, PET/CT, or tissue sampling *High Risk < 6 mm - Optional CT at 12 months 6-8 mm - CT at 6-12 months, then CT at 18-24 months > 8 mm - Consider CT at 3 months, PET/CT, or tissue sampling Multiple: *Low Risk < 6 mm - No routine follow-up 6-8 mm -CT at 3-6 months, then consider CT at 18-24 months > 8 mm - CT at 3-6 months, then consider CT at 18-24 months *High Risk < 6 mm - Optional CT at 12 months 6-8 mm - CT at 3-6 months, then at 18-24 months > 8 mm - CT at 3-6 months, then at 18-24 months B. SUBSOLID NODULES* Nodule Type and Size: Single: *Ground glass < 6 mm - No routine follow-up > 6 mm - CT at 6-12 months to confirm persistence, then CT every 2 years until 5 years *Part Solid < 6 mm - No routine follow-up > 6 mm - CT at 3-6 months to confirm persistence. If unchanged and solid component remains < 6 mm, annual CT should be performed for 5 years. Multiple: < 6 mm - CT at 3-6 months. If stable, consider CT at 2 and 4 years. > 6 mm - CT at 3-6 months. Subsequent management based on the most suspicious nodule(s). Note - These recommendations do not apply to lung cancer screening, patients with immunosuppression, or patients with known primary cancer. * Dimensions are average of long and shortaxes, rounded to the nearest millimeter. Consider all relevant risk factors. 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 male on day 0 of admission presenting with DKA, type 1, not at goal. Subjective History Of Present Illness: Isaias Estrella is a 23 y.o. male with PMHx s/f IDDM1 on basal and bolus insulin, presenting with R groin pain. The patient had been lifting heavy materials at work earlier this week. Last 3-4 days had significant R groin pain. No fever no chills, no bowel or bladder symptoms. Pt had been eating poorly and had higher than normal glucose readings. On evaluation in the ED pt found to be in DKA, CT abdomen and pelvis rased concern for infection or abscess R groin. The case was discussed with ED provider pt will be admitted for further workup and management. ED Course (Summary): Vitals on presentation: 98.4 HR 115 RR 18 BP 130/84 Labs: significant for glucose 343, crp 19.07 beta hydroxybutyrate 10.42 , VBG pH 7.1 Imaging: CT abdomen and pelvis concerning for thickening R iliacus muscle Interventions: toradol DKA protocol ED Course: ED Course as of 08/03/24 1542 Sun Aug 03, [address] scan findings. Patient is diabetic so he is at increased risk of infection. Labs ordered to further evaluate for such. Had ketones in his urine. Therefore, he was given 1 Liter of NS. [JZ] 1212 Reviewed labs and he is noted to be in DKA. Getting a room for him in the treatment area. Additional labs added. Given IV fluids and started on an insulin drip. [JZ] [address] Sinha, geriatric social work professor, who agrees to see the patient on consult in the ICU. [JZ] ED Course User Index [JZ] Lakesha Mendoza, ULTRASOUND APPLICATIONS SPECIALIST-DEALERSHIP MANAGER 08/04/24: Patient was evaluated this morning. Not in acute distress. No acute changes overnight. Patient is resting in bed comfortably. Denies fever/chills, nausea/vomiting, headache, dizziness, cough, shortness of breath, chest pain, abdominal pain, calf pain. No longer on IV insulin. He explained that due to poor insurance, he needed to space his insulin doses in order to make it to his next endocrinology appointment. Blood glucose remains not well controlled, with most recent POCT result at 291. Last A1c in September 2023 was 12.5. Continues to complain of right groin pain that is worse with movement. No evidence of abscess or infection on repeat abdominal CT. WBC stable at 8.6. 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 Objective Last Recorded Vitals BP 113/70 (BP Location: Left arm, Patient Position: Lying) Pulse 101 Temp 37.6 C (99.7 F) (Temporal) Resp 17 Wt 68 kg (150 lb) SpO2 97% Intake/Output last 3 Shifts: Intake/Output Summary (Last 24 hours) at 08/04/2024 1739 Last data filed at 08/04/2024 1500 Gross per 24 hour Intake 240 ml Output 0 ml Net 240 ml Admission Weight Weight: 68 kg (150 lb) (08/03/24 0819) Daily Weight 08/04/24 : 68 kg (150 lb) Image Results CT abdomen pelvis w IV contrast Narrative: Interpreted By: Imtiaz Aly, STUDY: CT ABDOMEN PELVIS W IV CONTRAST; 08/03/2024 2:32 pm INDICATION: Signs/Symptoms:R pelvic pain, iliacus illiopsoas hematoma vs infection. COMPARISON: CT abdomen and pelvis without contrast 03 August 2024 at 0906 hours ACCESSION NUMBER(S): [id number] ORDERING CLINICIAN: JHON DEAN TECHNIQUE: CT of the abdomen and pelvis from the lung bases through the symphysis pubis after the uneventful administration of intravenous contrast (75 mL Omnipaque 350). No oral contrast. FINDINGS: LOWER CHEST: No acute airspace disease. BONES: No acute osseous findings. Right iliacus muscle expansile compared to other side. There was no acute hematoma on CT without contrast earlier today No abscess on CT with contrast presently LIVER: Normal. No enlargement or evidence of cirrhosis or fatty change. No mass or other suspect lesion. SPLEEN: Normal. No enlargement, mass or evidence of splenic vein thrombosis. PANCREAS: Normal. No CT evidence of acute or chronic pancreatitis. No duct dilation. No mass. GALLBLADDER: Normal CT appearance. No dilation, calcified, or gas-containing stones. Other types of gallstones could be occult on CT and detectable only by ultrasound. BILE DUCTS: Normal. No biliary duct dilation. ADRENAL GLANDS: Normal. No nodule or mass. KIDNEYS AND URETERS: Normal. No hydronephrosis on either side. No mass. Symmetric enhancement. No infarct or CT evidence of acute pyelonephritis. No substantial radiodense stone. Tiny stones and radiolucent stones could be occult on CT. LYMPH NODES: No adenopathy, intraperitoneal, retroperitoneal, pelvic or otherwise APPENDIX: Similar to earlier today. A portion of normal caliber proximal appendix compressed up against the back wall of the cecum but entirety of appendix not clearly delineated COLON: Normal. No sign of acute diverticulitis or other colitis. No annular constricting mass. SMALL BOWEL: Normal. No small bowel dilation or any other sign of small bowel obstruction. No sign of active inflammatory bowel disease. STOMACH / DUODENUM: Grossly normal by CT which has limited sensitivity and specificity for the stomach and duodenum. RETROPERITONEUM: Normal. No acute hemorrhage or inflammatory change. Lymph nodes in a separate dedicated section. OMENTUM, MESENTERY AND PERITONEAL SPACES: Free intraperitoneal air: Negative Free intraperitoneal fluid: Negative Abscess: Negative Other: n/a URINARY BLADDER: Distended but otherwise remains normal PELVIS: The prostate is not significantly enlarged. No pelvic mass, adenopathy or free fluid. VASCULATURE: No abdominal aortic or iliac artery aneurysm. No high grade stenosis of the major abdominal aortic branch vessels. Portal venous system patent. ABDOMINAL WALL: Hernia: Negative Other: No acute or contributory abnormality. Impression: IV contrast on the present exam could potentially obscure a muscular hematoma but there was no acute hematoma in the right iliacus muscle earlier today The present CT with contrast does not reveal a walled-off abscess in the right iliacus or anywhere else Otherwise, the remains uncertain the exact etiology of the right iliacus muscle edematous enlargement No new or newly evident acute findings with IV contrast As was the case earlier today, I suspect at least a demonstrable normal caliber proximal appendix against the back wall of the cecum but it is difficult to identify the mid and distal appendix. No calcified appendicolith No acute pancreatitis, hydronephrosis/urinary stone or any other acute solid organ findings No gallbladder or biliary duct dilation No perforation or abscess, only trace unchanged abnormal free pelvic fluid MACRO: None Signed by: Imtiaz Aly 08/03/2024 2:40 PM Dictation workstation: [id number] US scrotum w doppler Narrative: STUDY: Scrotal Ultrasound; 08/03/2024 9:48 am. INDICATION: Right testicular pain. COMPARISON: CT A/P 08/03/2024. ACCESSION NUMBER(S): [id number] ORDERING CLINICIAN: LAKESHA MENDOZA TECHNIQUE: Ultrasound of the scrotum and testicular spectral doppler evaluation performed. FINDINGS: The right testicle measures 5.1 x 2.3 x 3.5 cm. It demonstrates a normal homogeneous echotexture. Normal color and spectral Doppler flow is demonstrated. The right epididymal head measures 0.9 x 0.9 x 0.7 cm and demonstrates normal echogenicity. The left testicle measures 4.6 x 2.9 x 2.8 cm. It demonstrates a normal homogeneous echotexture. Normal color and spectral Doppler flow is demonstrated. The left epididymal head measures 1.2 x 0.9 x 0.8 cm and demonstrates normal echogenicity. Impression: Unremarkable scrotal ultrasound. Normal testicular spectral doppler evaluation. Signed by Sylvie Yin MD CT abdomen pelvis wo IV contrast Narrative: STUDY: CT Abdomen and Pelvis without IV Contrast; 08/03/2024 9:11 AM. INDICATION: Groin pain. COMPARISON: None Available. ACCESSION NUMBER(S): [id number] ORDERING CLINICIAN: LAKESHA MENDOZA TECHNIQUE: CT of the abdomen and pelvis was performed. Contiguous axial images were obtained at 3 mm slice thickness through the abdomen and pelvis. Coronal and sagittal reconstructions at 3 mm slice thickness were performed. No intravenous contrast was administered. Automated mA/kV exposure control was utilized and patient examination was performed in strict accordance with principles of ALARA. FINDINGS: Please note that the evaluation of vessels, lymph nodes and organs is limited without intravenous contrast. LOWER CHEST: No cardiomegaly. No pericardial effusion. Multiple noncalcified nodules in the lung bases measuring up to 7 mm laterally in the left lower lobe ABDOMEN: LIVER: No hepatomegaly. Smooth surface contour. Normal attenuation. BILE DUCTS: No intrahepatic or extrahepatic biliary ductal dilatation. GALLBLADDER: The gallbladder is present without gallstones. STOMACH: No abnormalities identified. PANCREAS: No masses or ductal dilatation. SPLEEN: No splenomegaly or focal splenic lesion. ADRENAL GLANDS: No thickening or nodules. KIDNEYS AND URETERS: Kidneys are normal in size and location. No renal or ureteral calculi. PELVIS: BLADDER: Mild diffuse urinary bladder wall thickening REPRODUCTIVE ORGANS: No abnormalities identified. BOWEL: . Moderate to large stool volume. A portion of the appendix is believed to be visualized and measures 5 to 6 mm, although the entire appendix is not clearly seen. VESSELS: No abnormalities identified. Abdominal aorta is normal in caliber. PERITONEUM/RETROPERITONEUM/LYMPH NODES: Trace pelvic free fluid. No pneumoperitoneum. No lymphadenopathy. ABDOMINAL WALL: No abnormalities identified. SOFT TISSUES: There is asymmetric enlargement of the right iliacus muscle measuring up to 3.8 cm in thickness with the left measuring 2.5 cm. There is also mild haziness surrounding the right iliacus muscle and distal aspect of the iliopsoas muscle BONES: No acute fracture or aggressive osseous lesion. L5 pars defects. Impression: 1. Asymmetric enlargement of the right iliacus muscle measuring up to 3.8 cm in thickness with the left measuring 2.5 cm. There is also mild haziness surrounding the right iliacus muscle and distal aspect of the iliopsoas muscle. Findings may be secondary to a hematoma or possible infection. Correlate with infectious symptoms. Consider further evaluation with contrast-enhanced CT or contrast-enhanced MRI. 2. Mild diffuse urinary bladder wall thickening. Correlate with urinalysis for possible cystitis. 3. Moderate to large stool volume. 4. Multiple noncalcified nodules in the lung bases measuring up to 7 mm laterally in the left lower lobe. Fleischner Society 2017 Guidelines for Management of Incidentally Detected Pulmonary Nodules in Adults: A. SOLID NODULES* Nodule Type and Size: Single: *Low Risk < 6 mm - No routine follow-up 6-8 mm - CT at 6-12 months, then consider CT at 18-24 months > 8 mm - Consider CT at 3 months, PET/CT, or tissue sampling *High Risk < 6 mm - Optional CT at 12 months 6-8 mm - CT at 6-[address], [address] at 18-24 months > 8 mm - Consider CT at 3 months, PET/CT, or tissue sampling Multiple: *Low Risk < 6 mm - No routine follow-up 6-8 mm - CT at 3-6 months, then consider CT at 18-24 months > 8 mm - CT at 3-6 months, then consider CT at 18-24 months *High Risk < 6 mm - Optional CT at 12 months 6-8 mm - CT at 3-6 months, then at 18-24 months > 8 mm - CT at 3-6 months, then at 18-24 months B. SUBSOLID NODULES* Nodule Type and Size: Single: *Ground glass < 6 mm - No routine follow-up > 6 mm - CT at 6-12 months to confirm persistence, then CT every 2 years until 5 years *Part Solid < 6 mm - No routine follow-up > 6 mm - CT at 3-6 months to confirm persistence. If unchanged and solid component remains < 6 mm, annual CT should be performed for 5 years. Multiple: < 6 mm - CT at 3-6 months. If stable, consider CT at 2 and 4 years. > 6 mm - CT at 3-6 months. Subsequent management based on the most suspicious nodule(s). Note - These recommendations do not apply to lung cancer screening, patients with immunosuppression, or patients with known primary cancer. * Dimensions are average of long and short axes, rounded to the nearest millimeter. Consider all relevant risk factors. Signed by Satya Campo MD Physical Exam Physical Exam: Constitutional: Pleasant and cooperative. Laying in bed in no acute distress. Conversant. Skin: Warm and dry; no obvious lesions, rashes, pallor, or jaundice. Good turgor. Eyes: EOMI. Anicteric sclera. ENT: Mucous membranes moist; no obvious injury or deformity appreciated. Head and Neck: Normocephalic, atraumatic. ROM preserved. Trachea midline. No appreciable JVD. No appreciable thyromegaly. Respiratory: Nonlabored on room air. Lungs clear to auscultation bilaterally without obvious adventitious sounds. Chest rise is equal. Cardiovascular: RRR. No gross murmur, gallop, or rub. Extremities are warm and well-perfused with good capillary refill (< 3 seconds). No chest wall tenderness. Gastro: Abdomen soft, nondistended. RLQ tenderness to palpation. No obvious organomegaly appreciated. Bowel sounds are present and normoactive. : No CVA tenderness. MSK: No gross abnormalities appreciated. Hip flexion limited due to pain on right. Extremities: No cyanosis, edema, or clubbing evident. Neurovascularly intact. Neuro: A&Ox3. CN 2-12 grossly intact. Able to respond to questions appropriately and clearly. No new focal neurologic deficits appreciated. Psych: Appropriate mood and behavior. Relevant Results Scheduled medications insulin glargine, 15 Units, subcutaneous, q24h insulin lispro, 0-10 Units, subcutaneous, TID AC insulin lispro, 5 Units, subcutaneous, TID AC polyethylene glycol, 17 g, oral, Daily Continuous medications PRN medications PRN medications: acetaminophen, dextrose, dextrose, glucagon, glucagon, ondansetron OR ondansetron, oxyCODONE-acetaminophen, traMADol Results from last 7 days Lab Units 08/04/24 0448 08/03/24 1101 WBC AUTO x10*3/uL 8.6 10.8 HEMOGLOBIN g/dL 13.2* 14.7 HEMATOCRIT % 37.2* 42.5 PLATELETS AUTO x10*3/uL 153 180 Results from last 7 days Lab Units 08/04/24 0448 08/03/24 2000 08/03/24 1643 08/03/24 1405 08/03/24 1101 SODIUM mmol/L 133* 131* 134* < > 132* POTASSIUM mmol/L 3.7 3.8 3.0* < > 3.9 CHLORIDE mmol/L 107 110* 109* < > 100 CO2 mmol/L 17* 17* 14* < > 7* BUN mg/dL 8 7 8 < > 11 CREATININE mg/dL 0.65 0.60 0.74 < > 0.91 CALCIUM mg/dL 8.6 8.3* 8.2* < > 9.3 PROTEIN TOTAL g/dL -- -- -- -- 7.5 BILIRUBIN TOTAL mg/dL -- -- -- -- 1.1 ALK PHOS U/L -- -- -- -- 124* ALT U/L -- -- -- -- 11 AST U/L -- -- -- -- 8* GLUCOSE mg/dL 263* 137* 171* < > 343* < > = values in this interval not displayed. Assessment & Plan DKA, type 1, not at goal Diabetic ketoacidosis; Type I DKA protocol discontinued Started on Lantus and Lispro sliding scale Diabetic diet Continue to monitor blood glucose and serum electrolytes Recheck A1c Right groin pain Given the absence of leukocytosis and repeat CT unremarkable for acute infection appendicitis or abscess unlikely Imaging negative for acute hematoma; Likely a muscular injury Will continue to monitor for any changes and encourage follow-up with his PCP CARIDAD VELASQUEZ Pt seen and examined with my Medical student . I have modified the note to reflect my documentationof HPI and assessment and plan. Insulin-dependent diabetes mellitus type 1 with DKA Right groin pain likely musculoskeletal Patient was heavily sedated when I came to see him. Judicious use of narcotics. Endocrinology consulted the recommendation appreciated Bicarb 17. Continue to monitor electrolytes closely. Andre Cabello MD MRCP * Beth Nam - 08/03/2024 2:19 PM EST Isaias Estrella is a 23 y.o. male admitted for DKA, type 1, not at goal. Pharmacy reviewed the patient's [id number] medications and allergies for accuracy. The list below reflects the [employer] [employer] list prior to pharmacy medication history. A summary a changes to the [employer] medication list has been listed below. Please review each medication in order reconciliation for additional clarification and justification. Source of information: T2P Medications added: Medications modified: Humalog 100 units/ml tid --> use per ss tid Medications to be removed: Medications of concern: Prior to Admission Medications Prescriptions Last Dose Informant Patient Reported? Taking? insulin lispro (HumaLOG) 100 unit/mL injection Yes No Sig: Inject under the skin 3 times daily (morning, midday, late afternoon). Take as directed per insulin instructions. Facility-Administered Medications: None Beth Nam Cosigned by Sergei Arevalo, PharmD at 08/03/2024 3:22 PM EST [facility] Work Phone: 1(239) 429-184301-28-2025 Plan of care note* Care Plan - Beverley Samayoa RN - 08/05/2024 7:45 AM EST The patient's goals for the shift include Patients blood sugars will remain controlled and his groin pain will decrease. The clinical goals for the shift include pt will be free from fall or injuries throughout shift [facility]01-28-2025 Miscellaneous Notes* Care Plan - Beverley Samayoa RN - 08/05/2024 7:45 AM EST The patient's goals for the shift include Patients blood sugars will remain controlled and his groin pain will decrease. The clinical goals for the shift include pt will be free from fall or injuries throughout shift * Care Plan - Kristel Silvestre RN - 08/04/2024 7:42 PM EST The patient's goals for the shift include The clinical goals for the shift include pt will be free from fall or injuries throughout shift Problem: Discharge Planning Goal: Discharge to home or other facility with appropriate resources Outcome: Progressing Problem: Skin Goal: Promote/optimize nutrition Outcome: Progressing Flowsheets (Taken 08/04/20241941) Promote/optimize nutrition: Monitor/record intake including meals Goal: Promote skin healing Outcome: Progressing Flowsheets (Taken 08/04/20241941) Promote skin healing: Assess skin/pad under line(s)/device(s) Rotate device position/do not position patient on device Problem: Fall/Injury Goal: Not fall by end of shift Outcome: Progressing Goal: Be free from injury by end of the shift Outcome: Progressing Goal: Verbalize understanding of personal risk factors for fall in the hospital Outcome: Progressing Goal: Verbalize understanding of risk factor reduction measures to prevent injury from fall in the home Outcome: Progressing Goal: Use assistive devices by end of the shift Outcome: Progressing Goal: Pace activities to prevent fatigue by end of the shift Outcome: Progressing Problem: Diabetes Goal: Maintain glucose levels >70mg/dl to <250mg/dl throughout shift Outcome: Progressing Goal: No changes in neurological exam by end of shift Outcome: Progressing Goal: Vital signs within normal range for age by end of shift Outcome: Progressing Goal: Increase self care and/or family involovement by end of shift Outcome: Progressing Goal: Achieve decreasing blood glucose levels by end of shift Outcome: Progressing Goal: Increase stability of blood glucose readings by end of shift Outcome: Progressing Goal: Decrease in ketones present in urine by end of shift Outcome: Progressing Goal: Maintain electrolyte levels within acceptable range throughout shift Outcome: Progressing Goal: Learn about and adhere to nutrition recommendations by end of shift Outcome: Progressing Goal: Receive DSME education by end of shift Outcome: Progressing Problem: Pain Goal: Takes deep breaths with improved pain control throughout the shift Outcome: Progressing Goal: Turns in bed with improved pain control throughout the shift Outcome: Progressing Goal: Walks with improved pain control throughout the shift Outcome: Progressing Goal: Performs ADL's with improved pain control throughout shift Outcome: Progressing Goal: Participates in PT with improved pain control throughout the shift Outcome: Progressing Goal: Free from opioid side effects throughout the shift Outcome: Progressing Goal: Free from acute confusion related to pain meds throughout the shift Outcome: Progressing * Assessment & Plan Note - Andre Cabello MD - 08/04/2024 5:58 PM EST Associated Problem(s): DKA, type 1, not at goal * Care Plan - Janet Neil RN - 08/04/2024 10:10 AM EST The patient's goals for the shift include Problem: Discharge Planning Goal: Discharge to home or other facility with appropriate resources Outcome: Progressing Problem: Skin Goal: Promote/optimize nutrition Outcome: Progressing Flowsheets (Taken 08/04/2024 1010) Promote/optimize nutrition: Monitor/record intake including meals Goal: Promote skin healing Outcome: Progressing Flowsheets (Taken 08/04/2024 1010) Promote skin healing: Assess skin/pad under line(s)/device(s) Ensure correct size (line/device) and apply per compress engineer instructions Rotate device position/do not position patient on device Problem: Fall/Injury Goal: Not fall by end of shift Outcome: Progressing Goal: Be free from injury by end of the shift Outcome: Progressing Goal: Verbalize understanding of personal risk factors for fall in the hospital Outcome: Progressing Goal: Verbalize understanding of risk factor reduction measures to prevent injury from fall in the home Outcome: Progressing Goal: Use assistive devices by end of the shift Outcome: Progressing Goal: Pace activities to prevent fatigue by end of the shift Outcome: Progressing Problem: Diabetes Goal: Maintain glucose levels >70mg/dl to <250mg/dl throughout shift Outcome: Progressing Goal: No changes in neurological exam by end of shift Outcome: Progressing Goal: Vital signs within normal range for age by end of shift Outcome: Progressing Goal: Increase self care and/or family involovement by end of shift Outcome: Progressing * Assessment & Plan Note - Ernesto Sinha MD - 08/03/2024 4:52 PM EST Associated Problem(s): DKA, type 1, not at goal documented in this [facility] Work Phone: 1(364) 556-173701-27-2025 Plan of care note* Care Plan - Kristel Silvestre RN - 08/04/2024 7:42 PM EST The patient's goals for the shift include The clinical goals for the shift include pt will be free from fall or injuries throughout shift Problem: Discharge Planning Goal: Discharge to home or other facility with appropriate resources Outcome: Progressing Problem: Skin Goal: Promote/optimize nutrition Outcome: Progressing Flowsheets (Taken 08/04/20241941) Promote/optimize nutrition: Monitor/record intake including meals Goal: Promote skin healing Outcome: Progressing Flowsheets (Taken 08/04/20241941) Promote skin healing: Assess skin/pad under line(s)/device(s) Rotate device position/do not position patient on device Problem: Fall/Injury Goal: Not fall by end of shift Outcome: Progressing Goal: Be free from injury by end of the shift Outcome: Progressing Goal: Verbalize understanding of personal risk factors for fall in the hospital Outcome: Progressing Goal: Verbalize understanding of risk factor reduction measures to prevent injury from fall in the home Outcome: Progressing Goal: Use assistive devices by end of the shift Outcome: Progressing Goal: Pace activities to prevent fatigue by end of the shift Outcome: Progressing Problem: Diabetes Goal: Maintain glucose levels >70mg/dl to <250mg/dl throughout shift Outcome: Progressing Goal: No changes in neurological exam by end of shift Outcome: Progressing Goal: Vital signs within normal range for age by end of shift Outcome: Progressing Goal: Increase self care and/or family involovement by end of shift Outcome: Progressing Goal: Achieve decreasing blood glucose levels by end of shift Outcome: Progressing Goal: Increase stability of blood glucose readings by end of shift Outcome: Progressing Goal: Decrease in ketones present in urine by end of shift Outcome: Progressing Goal: Maintain electrolyte levels within acceptable range throughout shift Outcome: Progressing Goal: Learn about and adhere to nutrition recommendations by end of shift Outcome: Progressing Goal: Receive DSME education by end of shift Outcome: Progressing Problem: Pain Goal: Takes deep breaths with improved pain control throughout the shift Outcome: Progressing Goal: Turns in bed with improved pain control throughout the shift Outcome: Progressing Goal: Walks with improved pain control throughout the shift Outcome: Progressing Goal: Performs ADL's with improved pain control throughout shift Outcome: Progressing Goal: Participates in PT with improved pain control throughout the shift Outcome: Progressing Goal: Free from opioid side effects throughout the shift Outcome: Progressing Goal: Free from acute confusion related to pain meds throughout the shift Outcome: Progressing [facility]01-[facility] Evaluation + Plan note* Assessment & Plan Note - Andre Cabello MD - 08/04/2024 5:58 PM ESTAssociated Problem(s): DKA, type 1, not at goal [facility] Work Phone: 1([phone] 234-459101-27-2025 Plan of care note* Care Plan - Janet Neil RN - 08/04/2024 10:10 AM EST The patient's goals for the shift include Problem: Discharge Planning Goal: Discharge to home or other facility with appropriate resources Outcome: Progressing Problem: Skin Goal: Promote/optimize nutrition Outcome: Progressing Flowsheets (Taken 08/04/2024 1010) Promote/optimize nutrition: Monitor/record intake including meals Goal: Promote skin healing Outcome: Progressing Flowsheets (Taken 08/04/2024 1010) Promote skin healing: Assess skin/pad under line(s)/device(s) Ensure correct size (line/device) and apply per compress engineer instructions Rotate device position/do not position patient on device Problem: Fall/Injury Goal: Not fall by end of shift Outcome: Progressing Goal: Be free from injury by end of the shift Outcome: Progressing Goal: Verbalize understanding of personal risk factors for fall in the hospital Outcome: Progressing Goal: Verbalize understanding of risk factor reduction measures to prevent injury from fall in the home Outcome: Progressing Goal: Use assistive devices by end of the shift Outcome: Progressing Goal: Pace activities to prevent fatigue by end of the shift Outcome: Progressing Problem: Diabetes Goal: Maintain glucose levels >70mg/dl to <250mg/dl throughout shift Outcome: Progressing Goal: No changes in neurological exam by end of shift Outcome: Progressing Goal: Vital signs within normal range for age by end of shift Outcome: Progressing Goal: Increase self care and/or family involovement by end of shift Outcome: Progressing [facility] Work Phone: [phone]) 796-961001-27-2025 Consult note* Melvin Palma MD - 08/04/2024 9:25 AM ESTAssociated Order(s): Inpatient consult to Endocrinology Inpatient consult to Endocrinology Consult performed by: Melvin Palma MD Consult ordered by: Ernesto Sinha MD Reason for consult: DKA Reason For Consult DKA History Of Present Illness Isaias Estrella is a 23 y.o. male presenting with right groin pain. He was found to be tachycardic buthemodynamically stable. Initial lab data revealed a glucose value of 343mg/dL, beta hydroxybutyrateof 10.42, bicarbonate of 7 and anion gap of 29. CT scans of the abdomen and pelvis revealed asymmetric enlargement of the right iliacus muscle measuring up to 3.8 cm in thickness with the left measuring 2.5 cm. There is also mild haziness surrounding the right iliacus muscle and distal aspect of the iliopsoas muscle. Findings may be secondary to a hematomaor possible infection. He was given IVF and started on an insulin infusion with resolution of DKA in the ER. The patient was seen in the ER. He admits to being diagnosed with type 1 diabetes mellitus on July 08, 2023. His home regimen consists of: Lantus 15 units subcutaneous daily Insulin Lispro 5 units TID AC Insulin correction scale of 1 unit for every 50mg/dL above 150mg/dL He admits to rationing his insulin as he is currently paying out of pocket until it can be figured out what is covered by his insurance. As a result, his sugars have been running high. 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 He is out in this area due to work. 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 He is currently eating cereal for breakfast. Past Medical History Poorly controlled type 1 diabetes mellitus Surgical History He has no past surgical history on file. Social History He has no history on file for tobacco use, alcohol use, and drug use. Family History No family history on file. Allergies Patient has no known allergies. Review of Systems Gastrointestinal: Positive for abdominal pain. Negative for nausea and vomiting. All other systems reviewed and are negative. Physical Exam Vitals and nursing note reviewed. Constitutional: General: He is not in acute distress. Appearance: Normal appearance. He is normal weight. HENT: Head: Normocephalic and atraumatic. Nose: Nose normal. Mouth/Throat: Mouth: Mucous membranes are moist. Eyes: Extraocular Movements: Extraocular movements intact. Pulmonary: Effort: Pulmonary effort is normal. Musculoskeletal: General: Normal range of motion. Skin: General: Skin is warm. Neurological: Mental Status: He is alert and oriented to person, place, and time. Psychiatric: Mood and Affect: Mood normal. Last Recorded Vitals Blood pressure 113/69, pulse 99, temperature 36.9 C (98.4 F), temperature source Temporal, resp. rate 16, height 1.829 m (6'), weight 68 kg (150 lb), SpO2 98%. Relevant Results Scheduled medications insulin glargine, 15 Units, subcutaneous, q24h insulin lispro, 0-10 Units, subcutaneous, TID AC polyethylene glycol, 17 g, oral, Daily Continuous medications PRN medications PRN medications: acetaminophen, dextrose, dextrose, glucagon, glucagon, ondansetron OR ondansetron, oxyCODONE-acetaminophen, traMADol Results for orders placed or performed during the hospital encounter of 08/03/24 (from the past 96 hours) Urinalysis with Reflex Culture and Microscopic Result Value Ref Range Color, Urine Light-Yellow Light-Yellow, Yellow, Dark-Yellow Appearance, Urine Clear Clear Specific [place], Urine 1.036 (N) 1.005 - 1.035 pH, Urine 5.0 5.0, 5.5, 6.0, 6.5, 7.0, 7.5, 8.0 Protein, Urine 30 (1+) (A) NEGATIVE, 10 (TRACE), 20 (TRACE) mg/dL Glucose, Urine OVER (4+) (A) Normal mg/dL Blood, Urine NEGATIVE NEGATIVE Ketones, Urine OVER (4+) (A) NEGATIVE mg/dL Bilirubin, Urine NEGATIVE NEGATIVE Urobilinogen, Urine Normal Normal mg/dL Nitrite, Urine NEGATIVE NEGATIVE Leukocyte Esterase, Urine NEGATIVE NEGATIVE Extra Urine Varma Tube Result Value Ref Range Extra Tube Hold for add-ons. Urinalysis Microscopic Result Value Ref Range WBC, Urine 1-5 1-5, NONE /HPF RBC, Urine 1-2 NONE, 1-2, 3-5 /HPF Mucus, Urine FEW Reference range not established. /LPF CBC and Auto Differential Result Value Ref Range WBC 10.8 4.4 - 11.3 x10*3/uL nRBC 0.0 0.0 - 0.0 /100 WBCs RBC 4.35 (L) 4.50 - 5.90 x10*6/uL Hemoglobin 14.7 13.5 - 17.5 g/dL Hematocrit 42.5 41.0 - 52.0 % MCV 98 80 - 100 fL MCH 33.8 26.0 - 34.0 pg MCHC 34.6 32.0 - 36.0 g/dL RDW 11.8 11.5 - 14.5 % Platelets 180 150 - 450 x10*3/uL Neutrophils % 75.2 40.0 - 80.0 % Immature Granulocytes %, Automated 0.7 0.0 - 0.9 % Lymphocytes % 9.7 13.0 - 44.0 % Monocytes % 13.9 2.0 - 10.0 % Eosinophils % 0.1 0.0 - 6.0 % Basophils % 0.4 0.0 - 2.0 % Neutrophils Absolute 8.10 (H) 1.20 - 7.70 x10*3/uL Immature Granulocytes Absolute, Automated 0.08 0.00 - 0.70 x10*3/uL Lymphocytes Absolute 1.04 (L) 1.20 - 4.80 x10*3/uL Monocytes Absolute 1.50 (H) 0.10 - 1.00 x10*3/uL Eosinophils Absolute 0.01 0.00 - 0.70 x10*3/uL Basophils Absolute 0.04 0.00 - 0.10 x10*3/uL Comprehensive metabolic panel Result Value Ref Range Glucose 343 (H) 74 - 99 mg/dL Sodium 132 (L) 136 - 145 mmol/L Potassium 3.9 3.5 - 5.3 mmol/L Chloride 100 98 - 107 mmol/L Bicarbonate 7 (LL) 21 - 32 mmol/L Anion Gap 29 (H) 10 - 20 mmol/L Urea Nitrogen 11 6 - 23 mg/dL Creatinine 0.91 0.50 - 1.30 mg/dL eGFR >90 >60 mL/min/1.73m*2 Calcium 9.3 8.6 - 10.3 mg/dL Albumin 4.4 3.4 - 5.0 g/dL Alkaline Phosphatase 124 (H) 33 - 120 U/L Total Protein 7.5 6.4 - 8.2 g/dL AST 8 (L) 9 - 39 U/L Bilirubin, Total 1.1 0.0 - 1.2 mg/dL ALT 11 10 - 52 U/L Lactate Result Value Ref Range Lactate 0.8 0.4 - 2.0 mmol/L Sedimentation Rate Result Value Ref Range Sedimentation Rate 28 (H) 0 - 15 mm/h C-Reactive Protein Result Value Ref Range C-Reactive Protein 19.07 (H) <1.00 mg/dL Magnesium Result Value Ref Range Magnesium 1.83 1.60 - 2.40 mg/dL Phosphorus Result Value Ref Range Phosphorus 2.9 2.5 - 4.9 mg/dL Beta Hydroxybutyrate Result Value Ref Range Beta-Hydroxybutyrate 10.42 (H) 0.02 - 0.27 mmol/L Creatine Kinase Result Value Ref Range Creatine Kinase 66 0 - 325 U/L Blood Gas Venous Full Panel Result Value Ref Range POCT pH, Venous 7.10 (LL) 7.33 - 7.43 pH POCT pCO2, Venous 17 (L) 41 - 51 mm Hg POCT pO2, Venous 60 (H) 35 - 45 mm Hg POCT SO2, Venous 89 (H) 45 - 75 % POCT Oxy Hemoglobin, Venous 86.9 (H) 45.0 - 75.0 % POCT Hematocrit Calculated, Venous 42.0 41.0 - 52.0 % POCT Sodium, Venous 132 (L) 136 - 145 mmol/L POCT Potassium, Venous 3.8 3.5 - 5.3 mmol/L POCT Chloride, Venous 104 98 - 107 mmol/L POCT Ionized Calicum, Venous 1.27 1.10 - 1.33 mmol/L POCT Glucose, Venous 329 (H) 74 - 99 mg/dL POCT Lactate, Venous 0.8 0.4 - 2.0 mmol/L POCT Base Excess, Venous -22.4 (L) -2.0 - 3.0 mmol/L POCT HCO3 Calculated, Venous 5.3 (L) 22.0 - 26.0 mmol/L POCT Hemoglobin, Venous 14.1 13.5 - 17.5 g/dL POCT Anion Gap, Venous 27.0 (H) 10.0 - 25.0 mmol/L Patient Temperature 37.0 degrees Celsius FiO2 21 % POCT GLUCOSE Result Value Ref Range POCT Glucose 293 (H) 74 - 99 mg/dL POCT GLUCOSE Result Value Ref Range POCT Glucose 278 (H) 74 - 99 mg/dL POCT GLUCOSE Result Value Ref Range POCT Glucose 269 (H) 74 - 99 mg/dL Basic metabolic panel Result Value Ref Range Glucose 233 (H) 74 - 99 mg/dL Sodium 135 (L) 136 - 145 mmol/L Potassium 3.2 (L) 3.5 - 5.3 mmol/L Chloride 108 (H) 98 - 107 mmol/L Bicarbonate 8 (LL) 21 - 32 mmol/L Anion Gap 22 (H) 10 - 20 mmol/L Urea Nitrogen 10 6 - 23 mg/dL Creatinine 0.81 0.50 - 1.30 mg/dL eGFR >90 >60 mL/min/1.73m*2 Calcium 8.0 (L) 8.6 - 10.3 mg/dL Blood Gas Venous Result Value Ref Range POCT pH, Venous 7.13 (LL) 7.33 - 7.43 pH POCT pCO2, Venous 23 (L) 41 - 51 mm Hg POCT pO2, Venous 32 (L) 35 - 45 mm Hg POCT SO2, Venous 51 45 - 75 % POCT Oxy Hemoglobin, Venous 50.1 45.0 - 75.0 % POCT Base Excess, Venous -19.8 (L) -2.0 - 3.0 mmol/L POCT HCO3 Calculated, Venous 7.7 (L) 22.0 - 26.0 mmol/L Patient Temperature 37.0 degrees Celsius FiO2 21 % POCT GLUCOSE Result Value Ref Range POCT Glucose 218 (H) 74 - 99 mg/dL Blood Gas Venous Full Panel Result Value Ref Range POCT pH, Venous 7.16 (LL) 7.33 - 7.43 pH POCT pCO2, Venous 28 (L) 41 - 51 mm Hg POCT pO2, Venous 26 (L) 35 - 45 mm Hg POCT SO2, Venous 43 (L) 45 - 75 % POCT Oxy Hemoglobin, Venous 42.5 (L) 45.0 - 75.0 % POCT Hematocrit Calculated, Venous 40.0 (L) 41.0 - 52.0 % POCT Sodium, Venous 133 (L) 136 - 145 mmol/L POCT Potassium, Venous 3.3 (L) 3.5 - 5.3 mmol/L POCT Chloride, Venous 106 98 - 107 mmol/L POCT Ionized Calicum, Venous 1.31 1.10 - 1.33 mmol/L POCT Glucose, Venous 206 (H) 74 - 99 mg/dL POCT Lactate, Venous 0.9 0.4 - 2.0 mmol/L POCT Base Excess, Venous -17.3 (L) -2.0 - 3.0 mmol/L POCT HCO3 Calculated, Venous 10.0 (L) 22.0 - 26.0 mmol/L POCT Hemoglobin, Venous 13.2 (L) 13.5 - 17.5 g/dL POCT Anion Gap, Venous 20.0 10.0 - 25.0 mmol/L Patient Temperature 37.0 degrees Celsius FiO2 21 % POCT GLUCOSE Result Value Ref Range POCT Glucose 195 (H) 74 - 99 mg/dL POCT GLUCOSE Result Value Ref Range POCT Glucose 181 (H) 74 - 99 mg/dL Basic Metabolic Panel Result Value Ref Range Glucose 171 (H) 74 - 99 mg/dL Sodium 134 (L) 136 - 145 mmol/L Potassium 3.0 (L) 3.5 - 5.3 mmol/L Chloride 109 (H) 98 - 107 mmol/L Bicarbonate 14 (L) 21 - 32 mmol/L Anion Gap 14 10 - 20 mmol/L Urea Nitrogen 8 6 - 23 mg/dL Creatinine 0.74 0.50 - 1.30 mg/dL eGFR >90 >60 mL/min/1.73m*2 Calcium 8.2 (L) 8.6 - 10.3 mg/dL POCT GLUCOSE Result Value Ref Range POCT Glucose 222 (H) 74 - 99 mg/dL POCT GLUCOSE Result Value Ref Range POCT Glucose 130 (H) 74 - 99 mg/dL POCT GLUCOSE Result Value Ref Range POCT Glucose 129 (H) 74 - 99 mg/dL Blood Gas Venous Full Panel Result Value Ref Range POCT pH, Venous 7.30 (L) 7.33 - 7.43 pH POCT pCO2, Venous 31 (L) 41 - 51 mm Hg POCT pO2, Venous 56 (H) 35 - 45 mm Hg POCT SO2, Venous 91 (H) 45 - 75 % POCT Oxy Hemoglobin, Venous 88.9 (H) 45.0 - 75.0 % POCT Hematocrit Calculated, Venous 38.0 (L) 41.0 - 52.0 % POCT Sodium, Venous 131 (L) 136 - 145 mmol/L POCT Potassium, Venous 3.6 3.5 - 5.3 mmol/L POCT Chloride, Venous 108 (H) 98 - 107 mmol/L POCT Ionized Calicum, Venous 1.27 1.10 - 1.33 mmol/L POCT Glucose, Venous 133 (H) 74 - 99 mg/dL POCT Lactate, Venous 0.7 0.4 - 2.0 mmol/L POCT Base Excess, Venous -9.9 (L) -2.0 - 3.0 mmol/L POCT HCO3 Calculated, Venous 15.3 (L) 22.0 - 26.0 mmol/L POCT Hemoglobin, Venous 12.6 (L) 13.5 - 17.5 g/dL POCT Anion Gap, Venous 11.0 10.0 - 25.0 mmol/L Patient Temperature 37.0 degrees Celsius FiO2 21 % POCT GLUCOSE Result Value Ref Range POCT Glucose 172 (H) 74 - 99 mg/dL Basic Metabolic Panel Result Value Ref Range Glucose 137 (H) 74 - 99 mg/dL Sodium 131 (L) 136 - 145 mmol/L Potassium 3.8 3.5 - 5.3 mmol/L Chloride 110 (H) 98 - 107 mmol/L Bicarbonate 17 (L) 21 - 32 mmol/L Anion Gap 8 (L) 10 - 20 mmol/L Urea Nitrogen 7 6 - 23 mg/dL Creatinine 0.60 0.50 - 1.30 mg/dL eGFR >90 >60 mL/min/1.73m*2 Calcium 8.3 (L) 8.6 - 10.3 mg/dL POCT GLUCOSE Result Value Ref Range POCT Glucose 111 (H) 74 - 99 mg/dL POCT GLUCOSE Result Value Ref Range POCT Glucose 164 (H) 74 - 99 mg/dL POCT GLUCOSE Result Value Ref Range POCT Glucose 195 (H) 74 - 99 mg/dL POCT GLUCOSE Result Value Ref Range POCT Glucose 182 (H) 74 - 99 mg/dL POCT GLUCOSE Result Value Ref Range POCT Glucose 244 (H) 74 - 99 mg/dL POCT GLUCOSE Result Value Ref Range POCT Glucose 233 (H) 74 - 99 mg/dL CBC and Auto Differential Result Value Ref Range WBC 8.6 4.4 - 11.3 x10*3/uL nRBC 0.0 0.0 - 0.0 /100 WBCs RBC 3.88 (L) 4.50 - 5.90 x10*6/uL Hemoglobin 13.2 (L) 13.5 - 17.5 g/dL Hematocrit 37.2 (L) 41.0 - 52.0 % MCV 96 80 - 100 fL MCH 34.0 26.0 - 34.0 pg MCHC 35.5 32.0 - 36.0 g/dL RDW 11.9 11.5 - 14.5 % Platelets 153 150 - 450 x10*3/uL Neutrophils % 76.3 40.0 - 80.0 % Immature Granulocytes %, Automated 0.5 0.0 - 0.9 % Lymphocytes % 8.2 13.0 - 44.0 % Monocytes % 14.2 2.0 - 10.0 % Eosinophils % 0.6 0.0 - 6.0 % Basophils % 0.2 0.0 - 2.0 % Neutrophils Absolute 6.57 1.20 - 7.70 x10*3/uL Immature Granulocytes Absolute, Automated 0.04 0.00 - 0.70 x10*3/uL Lymphocytes Absolute 0.71 (L) 1.20 - 4.80 x10*3/uL Monocytes Absolute 1.22 (H) 0.10 - 1.00 x10*3/uL Eosinophils Absolute 0.05 0.00 - 0.70 x10*3/uL Basophils Absolute 0.02 0.00 - 0.10 x10*3/uL Basic Metabolic Panel Result Value Ref Range Glucose 263 (H) 74 - 99 mg/dL Sodium 133 (L) 136 - 145 mmol/L Potassium 3.7 3.5 - 5.3 mmol/L Chloride 107 98 - 107 mmol/L Bicarbonate 17 (L) 21 - 32 mmol/L Anion Gap 13 10 - 20 mmol/L Urea Nitrogen 8 6 - 23 mg/dL Creatinine 0.65 0.50 - 1.30 mg/dL eGFR >90 >60 mL/min/1.73m*2 Calcium 8.6 8.6 - 10.3 mg/dL POCT GLUCOSE Result Value Ref Range POCT Glucose 197 (H) 74 - 99 mg/dL CT abdomen pelvis w IV contrast Result Date: 08/03/2024 Interpreted By: Imtiaz Aly, STUDY: CT ABDOMEN PELVIS W IV CONTRAST; 08/03/2024 2:32 pm INDICATION:Signs/Symptoms:R pelvic pain, iliacus illiopsoas hematoma vs infection. COMPARISON: CT abdomen and pelvis without contrast 03 August 2024 at 0906 hours ACCESSION NUMBER(S): [id number] ORDERING CLINICIAN: JHON DEAN TECHNIQUE: CT of the abdomen and pelvis from the lung bases through the symphysis pubis after the uneventful administration of intravenous contrast (75 mL Omnipaque 350). No oral contrast. FINDINGS: LOWER CHEST: No acute airspace disease. BONES: No acute osseous findings. Right iliacus muscle expansile compared to other side. There was no acute hematoma on CT without contrast earlier today No abscess on CT with contrast presently LIVER: Normal. No enlargement or evidence of cirrhosis or fatty change. No mass or other suspect lesion. SPLEEN: Normal. No enlargement, mass or evidence of splenic vein thrombosis. PANCREAS: Normal. No CT evidence of acute or chronic pancreatitis. No duct dilation. No mass. GALLBLADDER: Normal CT appearance. No dilation, calcified, or gas-containing stones. Other types of gallstones could be occult on CT and detectable only by ultrasound. BILE DUCTS: Normal. No biliary duct dilation. ADRENAL GLANDS: Normal. No nodule or mass. KIDNEYS AND URETERS: Normal. No hydronephrosis on either side. No mass. Symmetric enhancement. No infarct or CT evidence of acute pyelonephritis. No substantial radiodense stone. Tiny stones and radiolucent stones could be occult on CT. LYMPH NODES: No adenopathy, intraperitoneal, retroperitoneal, pelvic or otherwise APPENDIX: Similar to earlier today. A portion of normal caliber proximal appendix compressed up against the back wall of the cecum but entirety of appendix not clearly delineated COLON: Normal. No sign of acute diverticulitis or other colitis. No annular constricting mass. SMALL BOWEL: Normal. No small bowel dilation or any other sign of small bowel obstruction. No sign of active inflammatory bowel disease. STOMACH / DUODENUM: Grossly normal by CT which has limited sensitivity and specificity for the stomach and duodenum. RETROPERITONEUM: Normal. No acute hemorrhage or inflammatory change. Lymph nodes in a separate dedicated section. OMENTUM, MESENTERY AND PERITONEAL SPACES: Free intraperitoneal air: Negative Free intraperitoneal fluid: Negative Abscess: Negative Other: n/a URINARY BLADDER: Distended but otherwise remains normal PELVIS: The prostate is not significantly enlarged. No pelvic mass, adenopathy or free fluid. VASCULATURE: No abdominal aortic or iliac artery aneurysm. No high grade stenosis of the major abdominal aortic branch vessels. Portal venous system patent. ABDOMINAL WALL: Hernia: Negative Other: No acute or contributory abnormality. IV contrast on the present exam could potentially obscure a muscular hematoma but there was no acute hematoma in the right iliacus muscle earlier today The present CT with contrast does not reveal a walled-off abscess in the right iliacus or anywhere else Otherwise, the remains uncertain the exact etiology of the right iliacus muscle edematous enlargement No new or newly evident acute findings with IV contrast As was the case earlier today, I suspect at least a demonstrable normal caliber proximal appendix against the back wall of the cecum but it is difficult to identify the mid and distal appendix. No calcified appendicolith No acute pancreatitis, hydronephrosis/urinary stone or any other acute solid organ findings No gallbladder or biliary duct dilation No perforation or abscess, only trace unchanged abnormal free pelvic fluid MACRO: None Signed by: Imtiaz Aly 08/03/2024 2:40 PM Dictation workstation: [id number] US scrotum w doppler Result Date: 08/03/2024 STUDY: Scrotal Ultrasound; 08/03/2024 9:48 am. INDICATION: Right testicular pain. COMPARISON: CT A/08/03/2024. ACCESSION NUMBER(S): [id number] ORDERING CLINICIAN: LAKESHA MENDOZA TECHNIQUE: Ultrasound of the scrotum and testicular spectral doppler evaluation performed. FINDINGS: The right testicle measures 5.1 x 2.3 x 3.5 cm. It demonstrates a normal homogeneous echotexture. Normal color and spectral Doppler flow is demonstrated. The right epididymal head measures 0.9 x 0.9 x 0.7 cm and demonstrates normal echogenicity. The left testicle measures 4.6 x 2.9 x 2.8 cm. It demonstrates a normal homogeneous echotexture. Normal color and spectral Doppler flow is demonstrated. The left epididymal head measures 1.2 x 0.9 x 0.8 cm and demonstrates normal echogenicity. Unremarkable scrotal ultrasound. Normal testicular spectral doppler evaluation. Signed by Sylvie Yin MD CT abdomen pelvis wo IV contrast Result Date: 08/03/2024 STUDY: CT Abdomen and Pelvis without IV Contrast; 08/03/2024 9:11 AM. INDICATION: Groin pain. COMPARISON: None Available. ACCESSION NUMBER(S): [id number] ORDERING CLINICIAN: LAKESHA MENDOZA TECHNIQUE: CT of the abdomen and pelvis was performed. Contiguous axial images were obtained at 3 mm slicethickness through the abdomen and pelvis. Coronal and sagittal reconstructions at 3 mm slice thickness were performed. No intravenous contrast was administered. Automated mA/kV exposure control was utilized and patient examination was performed in strict accordance with principles of ALARA. FINDINGS: Please note that the evaluation of vessels, lymph nodes and organs is limited without intravenouscontrast. LOWER CHEST: No cardiomegaly. No pericardial effusion. Multiple noncalcified nodules in the lung bases measuring up to 7 mm laterally in the left lower lobe ABDOMEN: LIVER: No hepatomegaly.Smooth surface contour. Normal attenuation. BILE DUCTS: No intrahepatic or extrahepatic biliary ductal dilatation. GALLBLADDER: The gallbladder is present without gallstones. STOMACH: No abnormalities identified. PANCREAS: No masses or ductal dilatation. SPLEEN: No splenomegaly or focal splenic lesion. ADRENAL GLANDS: No thickening or nodules. KIDNEYS AND URETERS: Kidneys are normal in size and location. No renal or ureteral calculi. PELVIS: BLADDER: Mild diffuse urinary bladder wall thickeningREPRODUCTIVE ORGANS: No abnormalities identified. BOWEL: . Moderate to large stool volume. A portion of the appendix is believed to be visualized and measures 5 to 6 mm, although the entire appendix is not clearly seen. VESSELS: No abnormalities identified. Abdominal aorta is normal in caliber. TERRANCE TONEUM/RETROPERITONEUM/LYMPH NODES: Trace pelvic free fluid. No pneumoperitoneum. No lymphadenopathy. ABDOMINAL WALL: No abnormalities identified. SOFT TISSUES: There is asymmetric enlargement of theright iliacus muscle measuring up to 3.8 cm in thickness with the left measuring 2.5 cm. There is also mild haziness surrounding the right iliacus muscle and distal aspect of the iliopsoas muscle BONES: No acute fracture or aggressive osseous lesion. L5 pars defects. 1. Asymmetric enlargement of the right iliacus muscle measuring up to 3.8 cm in thickness with the left measuring 2.5 cm. There is also mild haziness surrounding the right iliacus muscle and distal aspect of the iliopsoas muscle. Findings may be secondary to a hematoma or possible infection. Correlate with infectious symptoms. Consider further evaluation with contrast-enhanced CT or contrast-enhanced MRI. 2. Mild diffuse urinary bladder wall thickening. Correlate with urinalysis for possible cystitis. 3. Moderate to large stool volume. 4. Multiple noncalcified nodules in the lung bases measuring up to 7 mm laterally in the left lower lobe. Fleischner Society 2017 Guidelines for Management of Incidentally Detected Pulmonary Nodules in Adults: A. SOLID NODULES* Nodule Type and Size: Single:*Low Risk < 6 mm - No routine follow-up 6-8 mm - CT at 6-12 months, then consider CT at 18-24 months > 8 mm - Consider CT at 3 months, PET/CT, or tissue sampling *High Risk < 6 mm - Optional CT at 12 months 6-8 mm - CT at 6-12 months, then CT at 18-24 months > 8 mm - Consider CT at 3 months, PET/CT, or tissue sampling Multiple: *Low Risk < 6 mm - No routine follow-up 6-8 mm -CT at 3-6 months, then consider CT at 18-24 months > 8 mm - CT at 3-6 months, then consider CT at 18-24 months *High Risk < 6 mm - Optional CT at 12 months 6-8 mm - CT at 3-6 months, then at 18-24 months > 8 mm - CT at 3-6 months, then at 18-24 months B. SUBSOLID NODULES* Nodule Type and Size: Single: *Ground glass < 6 mm - No routine follow-up > 6 mm - CT at 6-12 months to confirm persistence, then CT every 2 years until 5 years *Part Solid < 6 mm - No routine follow-up > 6 mm - CT at 3-6 months to confirm persistence. If unchanged and solid component remains < 6 mm, annual CT should be performed for 5 years. Multiple: < 6 mm - CT at 3-6 months. If stable, consider CT at 2 and 4 years. > 6 mm - CT at 3-6 months. Subsequent management based on the most suspicious nodule(s). Note - These recommendations do not apply to lung cancer screening, patients with immunosuppression, or patients with known primary cancer. * Dimensions are average of long and shortaxes, rounded to the nearest millimeter. Consider all relevant risk factors. 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 A1C of 13.2% as of 07/31/2024 RECOMMENDATIONS: To increase Lantus to 20 units subcutaneous daily To commence Humalog 5 units TID AC To continue insulin correction scale TID AC Diabetic diet as tolerated Accu-Cheks ACHS Hypoglycemic protocol Counseled that the goal A1C should be 7% or less Counseled glycemic control is warranted to prevent microvascular complications Will continue to follow Thank you for the courtesy of this consult Melvin Palma MD [facility] Work Phone: [phone] Consult note* Melvin Palma MD - 08/04/2024 9:25 AM ESTAssociated Order(s): Inpatient consult to Endocrinology Inpatient consult to Endocrinology Consult performed by: Melvin Palma MD Consult ordered by: Ernesto Sinha MD Reason for consult: DKA Reason For Consult DKA History Of Present Illness Isaias Estrella is a 23 y.o. male presenting with right groin pain. He was found to be tachycardic buthemodynamically stable. Initial lab data revealed a glucose value of 343mg/dL, beta hydroxybutyrateof 10.42, bicarbonate of 7 and anion gap of 29. CT scans of the abdomen and pelvis revealed asymmetric enlargement of the right iliacus muscle measuring up to 3.8 cm in thickness with the left measuring 2.5 cm. There is also mild haziness surrounding the right iliacus muscle and distal aspect of the iliopsoas muscle. Findings may be secondary to a hematomaor possible infection. He was given IVF and started on an insulin infusion with resolution of DKA in the ER. The patient was seen in the ER. He admits to being diagnosed with type 1 diabetes mellitus on July 08, 2023. His home regimen consists of: Lantus 15 units subcutaneous daily Insulin Lispro 5 units TID AC Insulin correction scale of 1 unit for every 50mg/dL above 150mg/dL He admits to rationing his insulin as he is currently paying out of pocket until it can be figured out what is covered by his insurance. As a result, his sugars have been running high. 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 He is out in this area due to work. 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 He is currently eating cereal for breakfast. Past Medical History Poorly controlled type 1 diabetes mellitus Surgical History He has no past surgical history on file. Social History He has no history on file for tobacco use, alcohol use, and drug use. Family History No family history on file. Allergies Patient has no known allergies. Review of Systems Gastrointestinal: Positive for abdominal pain. Negative for nausea and vomiting. All other systems reviewed and are negative. Physical Exam Vitals and nursing note reviewed. Constitutional: General: He is not in acute distress. Appearance: Normal appearance. He is normal weight. HENT: Head: Normocephalic and atraumatic. Nose: Nose normal. Mouth/Throat: Mouth: Mucous membranes are moist. Eyes: Extraocular Movements: Extraocular movements intact. Pulmonary: Effort: Pulmonary effort is normal. Musculoskeletal: General: Normal range of motion. Skin: General: Skin is warm. Neurological: Mental Status: He is alert and oriented to person, place, and time. Psychiatric: Mood and Affect: Mood normal. Last Recorded Vitals Blood pressure 113/69, pulse 99, temperature 36.9 C (98.4 F), temperature source Temporal, resp. rate 16, height 1.829 m (6'), weight 68 kg (150 lb), SpO2 98%. Relevant Results Scheduled medications insulin glargine, 15 Units, subcutaneous, q24h insulin lispro, 0-10 Units, subcutaneous, TID AC polyethylene glycol, 17 g, oral, Daily Continuous medications PRN medications PRN medications: acetaminophen, dextrose, dextrose, glucagon, glucagon, ondansetron OR ondansetron, oxyCODONE-acetaminophen, traMADol Results for orders placed or performed during the hospital encounter of 08/03/24 (from the past 96 hours) Urinalysis with Reflex Culture and Microscopic Result Value Ref Range Color, Urine Light-Yellow Light-Yellow, Yellow, Dark-Yellow Appearance, Urine Clear Clear Specific [place], Urine 1.036 (N) 1.005 - 1.035 pH, Urine 5.0 5.0, 5.5, 6.0, 6.5, 7.0, 7.5, 8.0 Protein, Urine 30 (1+) (A) NEGATIVE, 10 (TRACE), 20 (TRACE) mg/dL Glucose, Urine OVER (4+) (A) Normal mg/dL Blood, Urine NEGATIVE NEGATIVE Ketones, Urine OVER (4+) (A) NEGATIVE mg/dL Bilirubin, Urine NEGATIVE NEGATIVE Urobilinogen, Urine Normal Normal mg/dL Nitrite, Urine NEGATIVE NEGATIVE Leukocyte Esterase, Urine NEGATIVE NEGATIVE Extra Urine Varma Tube Result Value Ref Range Extra Tube Hold for add-ons. Urinalysis Microscopic Result Value Ref Range WBC, Urine 1-5 1-5, NONE /HPF RBC, Urine 1-2 NONE, 1-2, 3-5 /HPF Mucus, Urine FEW Reference range not established. /LPF CBC and Auto Differential Result Value Ref Range WBC 10.8 4.4 - 11.3 x10*3/uL nRBC 0.0 0.0 - 0.0 /100 WBCs RBC 4.35 (L) 4.50 - 5.90 x10*6/uL Hemoglobin 14.7 13.5 - 17.5 g/dL Hematocrit 42.5 41.0 - 52.0 % MCV 98 80 - 100 fL MCH 33.8 26.0 - 34.0 pg MCHC 34.6 32.0 - 36.0 g/dL RDW 11.8 11.5 - 14.5 % Platelets 180 150 - 450 x10*3/uL Neutrophils % 75.2 40.0 - 80.0 % Immature Granulocytes %, Automated 0.7 0.0 - 0.9 % Lymphocytes % 9.7 13.0 - 44.0 % Monocytes % 13.9 2.0 - 10.0 % Eosinophils % 0.1 0.0 - 6.0 % Basophils % 0.4 0.0 - 2.0 % Neutrophils Absolute 8.10 (H) 1.20 - 7.70 x10*3/uL Immature Granulocytes Absolute, Automated 0.08 0.00 - 0.70 x10*3/uL Lymphocytes Absolute 1.04 (L) 1.20 - 4.80 x10*3/uL Monocytes Absolute 1.50 (H) 0.10 - 1.00 x10*3/uL Eosinophils Absolute 0.01 0.00 - 0.70 x10*3/uL Basophils Absolute 0.04 0.00 - 0.10 x10*3/uL Comprehensive metabolic panel Result Value Ref Range Glucose 343 (H) 74 - 99 mg/dL Sodium 132 (L) 136 - 145 mmol/L Potassium 3.9 3.5 - 5.3 mmol/L Chloride 100 98 - 107 mmol/L Bicarbonate 7 (LL) 21 - 32 mmol/L Anion Gap 29 (H) 10 - 20 mmol/L Urea Nitrogen 11 6 - 23 mg/dL Creatinine 0.91 0.50 - 1.30 mg/dL eGFR >90 >60 mL/min/1.73m*2 Calcium 9.3 8.6 - 10.3 mg/dL Albumin 4.4 3.4 - 5.0 g/dL Alkaline Phosphatase 124 (H) 33 - 120 U/L Total Protein 7.5 6.4 - 8.2 g/dL AST 8 (L) 9 - 39 U/L Bilirubin, Total 1.1 0.0 - 1.2 mg/dL ALT 11 10 - 52 U/L Lactate Result Value Ref Range Lactate 0.8 0.4 - 2.0 mmol/L Sedimentation Rate Result Value Ref Range Sedimentation Rate 28 (H) 0 - 15 mm/h C-Reactive Protein Result Value Ref Range C-Reactive Protein 19.07 (H) <1.00 mg/dL Magnesium Result Value Ref Range Magnesium 1.83 1.60 - 2.40 mg/dL Phosphorus Result Value Ref Range Phosphorus 2.9 2.5 - 4.9 mg/dL Beta Hydroxybutyrate Result Value Ref Range Beta-Hydroxybutyrate 10.42 (H) 0.02 - 0.27 mmol/L Creatine Kinase Result Value Ref Range Creatine Kinase 66 0 - 325 U/L Blood Gas Venous Full Panel Result Value Ref Range POCT pH, Venous 7.10 (LL) 7.33 - 7.43 pH POCT pCO2, Venous 17 (L) 41 - 51 mm Hg POCT pO2, Venous 60 (H) 35 - 45 mm Hg POCT SO2, Venous 89 (H) 45 - 75 % POCT Oxy Hemoglobin, Venous 86.9 (H) 45.0 - 75.0 % POCT Hematocrit Calculated, Venous 42.0 41.0 - 52.0 % POCT Sodium, Venous 132 (L) 136 - 145 mmol/L POCT Potassium, Venous 3.8 3.5 - 5.3 mmol/L POCT Chloride, Venous 104 98 - 107 mmol/L POCT Ionized Calicum, Venous 1.27 1.10 - 1.33 mmol/L POCT Glucose, Venous 329 (H) 74 - 99 mg/dL POCT Lactate, Venous 0.8 0.4 - 2.0 mmol/L POCT Base Excess, Venous -22.4 (L) -2.0 - 3.0 mmol/L POCT HCO3 Calculated, Venous 5.3 (L) 22.0 - 26.0 mmol/L POCT Hemoglobin, Venous 14.1 13.5 - 17.5 g/dL POCT Anion Gap, Venous 27.0 (H) 10.0 - 25.0 mmol/L Patient Temperature 37.0 degrees Celsius FiO2 21 % POCT GLUCOSE Result Value Ref Range POCT Glucose 293 (H) 74 - 99 mg/dL POCT GLUCOSE Result Value Ref Range POCT Glucose 278 (H) 74 - 99 mg/dL POCT GLUCOSE Result Value Ref Range POCT Glucose 269 (H) 74 - 99 mg/dL Basic metabolic panel Result Value Ref Range Glucose 233 (H) 74 - 99 mg/dL Sodium 135 (L) 136 - 145 mmol/L Potassium 3.2 (L) 3.5 - 5.3 mmol/L Chloride 108 (H) 98 - 107 mmol/L Bicarbonate 8 (LL) 21 - 32 mmol/L Anion Gap 22 (H) 10 - 20 mmol/L Urea Nitrogen 10 6 - 23 mg/dL Creatinine 0.81 0.50 - 1.30 mg/dL eGFR >90 >60 mL/min/1.73m*2 Calcium 8.0 (L) 8.6 - 10.3 mg/dL Blood Gas Venous Result Value Ref Range POCT pH, Venous 7.13 (LL) 7.33 - 7.43 pH POCT pCO2, Venous 23 (L) 41 - 51 mm Hg POCT pO2, Venous 32 (L) 35 - 45 mm Hg POCT SO2, Venous 51 45 - 75 % POCT Oxy Hemoglobin, Venous 50.1 45.0 - 75.0 % POCT Base Excess, Venous -19.8 (L) -2.0 - 3.0 mmol/L POCT HCO3 Calculated, Venous 7.7 (L) 22.0 - 26.0 mmol/L Patient Temperature 37.0 degrees Celsius FiO2 21 % POCT GLUCOSE Result Value Ref Range POCT Glucose 218 (H) 74 - 99 mg/dL Blood Gas Venous Full Panel Result Value Ref Range POCT pH, Venous 7.16 (LL) 7.33 - 7.43 pH POCT pCO2, Venous 28 (L) 41 - 51 mm Hg POCT pO2, Venous 26 (L) 35 - 45 mm Hg POCT SO2, Venous 43 (L) 45 - 75 % POCT Oxy Hemoglobin, Venous 42.5 (L) 45.0 - 75.0 % POCT Hematocrit Calculated, Venous 40.0 (L) 41.0 - 52.0 % POCT Sodium, Venous 133 (L) 136 - 145 mmol/L POCT Potassium, Venous 3.3 (L) 3.5 - 5.3 mmol/L POCT Chloride, Venous 106 98 - 107 mmol/L POCT Ionized Calicum, Venous 1.31 1.10 - 1.33 mmol/L POCT Glucose, Venous 206 (H) 74 - 99 mg/dL POCT Lactate, Venous 0.9 0.4 - 2.0 mmol/L POCT Base Excess, Venous -17.3 (L) -2.0 - 3.0 mmol/L POCT HCO3 Calculated, Venous 10.0 (L) 22.0 - 26.0 mmol/L POCT Hemoglobin, Venous 13.2 (L) 13.5 - 17.5 g/dL POCT Anion Gap, Venous 20.0 10.0 - 25.0 mmol/L Patient Temperature 37.0 degrees Celsius FiO2 21 % POCT GLUCOSE Result Value Ref Range POCT Glucose 195 (H) 74 - 99 mg/dL POCT GLUCOSE Result Value Ref Range POCT Glucose 181 (H) 74 - 99 mg/dL Basic Metabolic Panel Result Value Ref Range Glucose 171 (H) 74 - 99 mg/dL Sodium 134 (L) 136 - 145 mmol/L Potassium 3.0 (L) 3.5 - 5.3 mmol/L Chloride 109 (H) 98 - 107 mmol/L Bicarbonate 14 (L) 21 - 32 mmol/L Anion Gap 14 10 - 20 mmol/L Urea Nitrogen 8 6 - 23 mg/dL Creatinine 0.74 0.50 - 1.30 mg/dL eGFR >90 >60 mL/min/1.73m*2 Calcium 8.2 (L) 8.6 - 10.3 mg/dL POCT GLUCOSE Result Value Ref Range POCT Glucose 222 (H) 74 - 99 mg/dL POCT GLUCOSE Result Value Ref Range POCT Glucose 130 (H) 74 - 99 mg/dL POCT GLUCOSE Result Value Ref Range POCT Glucose 129 (H) 74 - 99 mg/dL Blood Gas Venous Full Panel Result Value Ref Range POCT pH, Venous 7.30 (L) 7.33 - 7.43 pH POCT pCO2, Venous 31 (L) 41 - 51 mm Hg POCT pO2, Venous 56 (H) 35 - 45 mm Hg POCT SO2, Venous 91 (H) 45 - 75 % POCT Oxy Hemoglobin, Venous 88.9 (H) 45.0 - 75.0 % POCT Hematocrit Calculated, Venous 38.0 (L) 41.0 - 52.0 % POCT Sodium, Venous 131 (L) 136 - 145 mmol/L POCT Potassium, Venous 3.6 3.5 - 5.3 mmol/L POCT Chloride, Venous 108 (H) 98 - 107 mmol/L POCT Ionized Calicum, Venous 1.27 1.10 - 1.33 mmol/L POCT Glucose, Venous 133 (H) 74 - 99 mg/dL POCT Lactate, Venous 0.7 0.4 - 2.0 mmol/L POCT Base Excess, Venous -9.9 (L) -2.0 - 3.0 mmol/L POCT HCO3 Calculated, Venous 15.3 (L) 22.0 - 26.0 mmol/L POCT Hemoglobin, Venous 12.6 (L) 13.5 - 17.5 g/dL POCT Anion Gap, Venous 11.0 10.0 - 25.0 mmol/L Patient Temperature 37.0 degrees Celsius FiO2 21 % POCT GLUCOSE Result Value Ref Range POCT Glucose 172 (H) 74 - 99 mg/dL Basic Metabolic Panel Result Value Ref Range Glucose 137 (H) 74 - 99 mg/dL Sodium 131 (L) 136 - 145 mmol/L Potassium 3.8 3.5 - 5.3 mmol/L Chloride 110 (H) 98 - 107 mmol/L Bicarbonate 17 (L) 21 - 32 mmol/L Anion Gap 8 (L) 10 - 20 mmol/L Urea Nitrogen 7 6 - 23 mg/dL Creatinine 0.60 0.50 - 1.30 mg/dL eGFR >90 >60 mL/min/1.73m*2 Calcium 8.3 (L) 8.6 - 10.3 mg/dL POCT GLUCOSE Result Value Ref Range POCT Glucose 111 (H) 74 - 99 mg/dL POCT GLUCOSE Result Value Ref Range POCT Glucose 164 (H) 74 - 99 mg/dL POCT GLUCOSE Result Value Ref Range POCT Glucose 195 (H) 74 - 99 mg/dL POCT GLUCOSE Result Value Ref Range POCT Glucose 182 (H) 74 - 99 mg/dL POCT GLUCOSE Result Value Ref Range POCT Glucose 244 (H) 74 - 99 mg/dL POCT GLUCOSE Result Value Ref Range POCT Glucose 233 (H) 74 - 99 mg/dL CBC and Auto Differential Result Value Ref Range WBC 8.6 4.4 - 11.3 x10*3/uL nRBC 0.0 0.0 - 0.0 /100 WBCs RBC 3.88 (L) 4.50 - 5.90 x10*6/uL Hemoglobin 13.2 (L) 13.5 - 17.5 g/dL Hematocrit 37.2 (L) 41.0 - 52.0 % MCV 96 80 - 100 fL MCH 34.0 26.0 - 34.0 pg MCHC 35.5 32.0 - 36.0 g/dL RDW 11.9 11.5 - 14.5 % Platelets 153 150 - 450 x10*3/uL Neutrophils % 76.3 40.0 - 80.0 % Immature Granulocytes %, Automated 0.5 0.0 - 0.9 % Lymphocytes % 8.2 13.0 - 44.0 % Monocytes % 14.2 2.0 - 10.0 % Eosinophils % 0.6 0.0 - 6.0 % Basophils % 0.2 0.0 - 2.0 % Neutrophils Absolute 6.57 1.20 - 7.70 x10*3/uL Immature Granulocytes Absolute, Automated 0.04 0.00 - 0.70 x10*3/uL Lymphocytes Absolute 0.71 (L) 1.20 - 4.80 x10*3/uL Monocytes Absolute 1.22 (H) 0.10 - 1.00 x10*3/uL Eosinophils Absolute 0.05 0.00 - 0.70 x10*3/uL Basophils Absolute 0.02 0.00 - 0.10 x10*3/uL Basic Metabolic Panel Result Value Ref Range Glucose 263 (H) 74 - 99 mg/dL Sodium 133 (L) 136 - 145 mmol/L Potassium 3.7 3.5 - 5.3 mmol/L Chloride 107 98 - 107 mmol/L Bicarbonate 17 (L) 21 - 32 mmol/L Anion Gap 13 10 - 20 mmol/L Urea Nitrogen 8 6 - 23 mg/dL Creatinine 0.65 0.50 - 1.30 mg/dL eGFR >90 >60 mL/min/1.73m*2 Calcium 8.6 8.6 - 10.3 mg/dL POCT GLUCOSE Result Value Ref Range POCT Glucose 197 (H) 74 - 99 mg/dL CT abdomen pelvis w IV contrast Result Date: 08/03/2024 Interpreted By: Imtiaz Aly, STUDY: CT ABDOMEN PELVIS W IV CONTRAST; 08/03/2024 2:32 pm INDICATION:Signs/Symptoms:R pelvic pain, iliacus illiopsoas hematoma vs infection. COMPARISON: CT abdomen and pelvis without contrast 03 August 2024 at 0906 hours ACCESSION NUMBER(S): [id number] ORDERING CLINICIAN: JHON DEAN TECHNIQUE: CT of the abdomen and pelvis from the lung bases through the symphysis pubis after the uneventful administration of intravenous contrast (75 mL Omnipaque 350). No oral contrast. FINDINGS: LOWER CHEST: No acute airspace disease. BONES: No acute osseous findings. Right iliacus muscle expansile compared to other side. There was no acute hematoma on CT without contrast earlier today No abscess on CT with contrast presently LIVER: Normal. No enlargement or evidence of cirrhosis or fatty change. No mass or other suspect lesion. SPLEEN: Normal. No enlargement, mass or evidence of splenic vein thrombosis. PANCREAS: Normal. No CT evidence of acute or chronic pancreatitis. No duct dilation. No mass. GALLBLADDER: Normal CT appearance. No dilation, calcified, or gas-containing stones. Other types of gallstones could be occult on CT and detectable only by ultrasound. BILE DUCTS: Normal. No biliary duct dilation. ADRENAL GLANDS: Normal. No nodule or mass. KIDNEYS AND URETERS: Normal. No hydronephrosis on either side. No mass. Symmetric enhancement. No infarct or CT evidence of acute pyelonephritis. No substantial radiodense stone. Tiny stones and radiolucent stones could be occult on CT. LYMPH NODES: No adenopathy, intraperitoneal, retroperitoneal, pelvic or otherwise APPENDIX: Similar to earlier today. A portion of normal caliber proximal appendix compressed up against the back wall of the cecum but entirety of appendix not clearly delineated COLON: Normal. No sign of acute diverticulitis or other colitis. No annular constricting mass. SMALL BOWEL: Normal. No small bowel dilation or any other sign of small bowel obstruction. No sign of active inflammatory bowel disease. STOMACH / DUODENUM: Grossly normal by CT which has limited sensitivity and specificity for the stomach and duodenum. RETROPERITONEUM: Normal. No acute hemorrhage or inflammatory change. Lymph nodes in a separate dedicated section. OMENTUM, MESENTERY AND PERITONEAL SPACES: Free intraperitoneal air: Negative Free intraperitoneal fluid: Negative Abscess: Negative Other: n/a URINARY BLADDER: Distended but otherwise remains normal PELVIS: The prostate is not significantly enlarged. No pelvic mass, adenopathy or free fluid. VASCULATURE: No abdominal aortic or iliac artery aneurysm. No high grade stenosis of the major abdominal aortic branch vessels. Portal venous system patent. ABDOMINAL WALL: Hernia: Negative Other: No acute or contributory abnormality. IV contrast on the present exam could potentially obscure a muscular hematoma but there was no acute hematoma in the right iliacus muscle earlier today The present CT with contrast does not reveal a walled-off abscess in the right iliacus or anywhere else Otherwise, the remains uncertain the exact etiology of the right iliacus muscle edematous enlargement No new or newly evident acute findings with IV contrast As was the case earlier today, I suspect at least a demonstrable normal caliber proximal appendix against the back wall of the cecum but it is difficult to identify the mid and distal appendix. No calcified appendicolith No acute pancreatitis, hydronephrosis/urinary stone or any other acute solid organ findings No gallbladder or biliary duct dilation No perforation or abscess, only trace unchanged abnormal free pelvic fluid MACRO: None Signed by: Imtiaz Aly 08/03/2024 2:40 PM Dictation workstation: [id number] US scrotum w doppler Result Date: 08/03/2024 STUDY: Scrotal Ultrasound; 08/03/2024 9:48 am. INDICATION: Right testicular pain. COMPARISON: CT A/08/03/2024. ACCESSION NUMBER(S): [id number] ORDERING CLINICIAN: LAKESHA MENDOZA TECHNIQUE: Ultrasound of the scrotum and testicular spectral doppler evaluation performed. FINDINGS: The right testicle measures 5.1 x 2.3 x 3.5 cm. It demonstrates a normal homogeneous echotexture. Normal color and spectral Doppler flow is demonstrated. The right epididymal head measures 0.9 x 0.9 x 0.7 cm and demonstrates normal echogenicity. The left testicle measures 4.6 x 2.9 x 2.8 cm. It demonstrates a normal homogeneous echotexture. Normal color and spectral Doppler flow is demonstrated. The left epididymal head measures 1.2 x 0.9 x 0.8 cm and demonstrates normal echogenicity. Unremarkable scrotal ultrasound. Normal testicular spectral doppler evaluation. Signed by Sylvie Yin MD CT abdomen pelvis wo IV contrast Result Date: 08/03/2024 STUDY: CT Abdomen and Pelvis without IV Contrast; 08/03/2024 9:11 AM. INDICATION: Groin pain. COMPARISON: None Available. ACCESSION NUMBER(S): [id number] ORDERING CLINICIAN: LAKESHA MENDOZA TECHNIQUE: CT of the abdomen and pelvis was performed. Contiguous axial images were obtained at 3 mm slicethickness through the abdomen and pelvis. Coronal and sagittal reconstructions at 3 mm slice thickness were performed. No intravenous contrast was administered. Automated mA/kV exposure control was utilized and patient examination was performed in strict accordance with principles of ALARA. FINDINGS: Please note that the evaluation of vessels, lymph nodes and organs is limited without intravenouscontrast. LOWER CHEST: No cardiomegaly. No pericardial effusion. Multiple noncalcified nodules in the lung bases measuring up to 7 mm laterally in the left lower lobe ABDOMEN: LIVER: No hepatomegaly.Smooth surface contour. Normal attenuation. BILE DUCTS: No intrahepatic or extrahepatic biliary ductal dilatation. GALLBLADDER: The gallbladder is present without gallstones. STOMACH: No abnormalities identified. PANCREAS: No masses or ductal dilatation. SPLEEN: No splenomegaly or focal splenic lesion. ADRENAL GLANDS: No thickening or nodules. KIDNEYS AND URETERS: Kidneys are normal in size and location. No renal or ureteral calculi. PELVIS: BLADDER: Mild diffuse urinary bladder wall thickeningREPRODUCTIVE ORGANS: No abnormalities identified. BOWEL: . Moderate to large stool volume. A portion of the appendix is believed to be visualized and measures 5 to 6 mm, although the entire appendix is not clearly seen. VESSELS: No abnormalities identified. Abdominal aorta is normal in caliber. TERRANCE TONEUM/RETROPERITONEUM/LYMPH NODES: Trace pelvic free fluid. No pneumoperitoneum. No lymphadenopathy. ABDOMINAL WALL: No abnormalities identified. SOFT TISSUES: There is asymmetric enlargement of theright iliacus muscle measuring up to 3.8 cm in thickness with the left measuring 2.5 cm. There is also mild haziness surrounding the right iliacus muscle and distal aspect of the iliopsoas muscle BONES: No acute fracture or aggressive osseous lesion. L5 pars defects. 1. Asymmetric enlargement of the right iliacus muscle measuring up to 3.8 cm in thickness with the left measuring 2.5 cm. There is also mild haziness surrounding the right iliacus muscle and distal aspect of the iliopsoas muscle. Findings may be secondary to a hematoma or possible infection. Correlate with infectious symptoms. Consider further evaluation with contrast-enhanced CT or contrast-enhanced MRI. 2. Mild diffuse urinary bladder wall thickening. Correlate with urinalysis for possible cystitis. 3. Moderate to large stool volume. 4. Multiple noncalcified nodules in the lung bases measuring up to 7 mm laterally in the left lower lobe. Fleischner Society 2017 Guidelines for Management of Incidentally Detected Pulmonary Nodules in Adults: A. SOLID NODULES* Nodule Type and Size: Single:*Low Risk < 6 mm - No routine follow-up 6-8 mm - CT at 6-12 months, then consider CT at 18-24 months > 8 mm - Consider CT at 3 months, PET/CT, or tissue sampling *High Risk < 6 mm - Optional CT at 12 months 6-8 mm - CT at 6-12 months, then CT at 18-24 months > 8 mm - Consider CT at 3 months, PET/CT, or tissue sampling Multiple: *Low Risk < 6 mm - No routine follow-up 6-8 mm -CT at 3-6 months, then consider CT at 18-24 months > 8 mm - CT at 3-6 months, then consider CT at 18-24 months *High Risk < 6 mm - Optional CT at 12 months 6-8 mm - CT at 3-6 months, then at 18-24 months > 8 mm - CT at 3-6 months, then at 18-24 months B. SUBSOLID NODULES* Nodule Type and Size: Single: *Ground glass < 6 mm - No routine follow-up > 6 mm - CT at 6-12 months to confirm persistence, then CT every 2 years until 5 years *Part Solid < 6 mm - No routine follow-up > 6 mm - CT at 3-6 months to confirm persistence. If unchanged and solid component remains < 6 mm, annual CT should be performed for 5 years. Multiple: < 6 mm - CT at 3-6 months. If stable, consider CT at 2 and 4 years. > 6 mm - CT at 3-6 months. Subsequent management based on the most suspicious nodule(s). Note - These recommendations do not apply to lung cancer screening, patients with immunosuppression, or patients with known primary cancer. * Dimensions are average of long and shortaxes, rounded to the nearest millimeter. Consider all relevant risk factors. Signed by Satya Campo MD Assessment/Plan IMPRESSION: POORLY CONTROLLED TYPE 1 DIABETES MELLITUS DKA - resolved [facility] insulin use A1C of 13.2% as of 07/31/2024 RECOMMENDATIONS: To increase Lantus to 20 units subcutaneous daily To commence Humalog 5 units TID AC To continue insulin correction scale TID AC Diabetic diet as tolerated Accu-Cheks ACHS Hypoglycemic protocol Counseled that the goal A1C should be 7% or less Counseled glycemic control is warranted to prevent microvascular complications Will continue to follow Thank you for the courtesy of this consult Melvin Palma MD * Ernesto Sinha MD - 08/03/2024 4:44 PM ESTAssociated Order(s): IP CONSULT TO TRAFFIC LAW ATTORNEY Critical Care Medicine Consult Reason For Consult Diabetic ketoacidosis History Of Present Illness Isaias Estrella is a 23 y.o. male with PMHx s/f IDDM1 on basal and bolus insulin was requested to admit to the ICU because of diabetic ketoacidosis. On presentation his anion gap was 29 and a bicarb of 7. On admission 08/03/2024: Patient presented to the ER with the right groin pain the patient had been lifting heavy materials at work earlier this week. Last 3-4 days had significant R groin pain. No fever no chills, no bowel or bladder symptoms. Pt had been eating poorly and had higher than normal glucose readings. On evaluation in the ED pt found to be in DKA, CT abdomen and pelvis rased concern for infection or abscess R groin. . History reviewed. No pertinent past medical history. History reviewed. No pertinent surgical history. (Not in a hospital admission) Patient has no known allergies. Social History Tobacco Use Smoking status: Unknown No family history on file. Scheduled Medications: polyethylene glycol, 17 g, oral, Daily sodium chloride, 1,000 mL, intravenous, Once Continuous Medications: D5 % and 0.9 % sodium chloride, 150 mL/hr, Last Rate: 150 mL/hr (08/03/24 1520) dextrose 10 % in water (D10W), 150 mL/hr dextrose 10 % in water (D10W), 150 mL/hr insulin regular, 0-50 Units/hr, Last Rate: 9.5 Units/hr (08/03/24 1305) sodium chloride, 250 mL/hr PRN Medications: PRN medications: D5 % and 0.9 % sodium chloride, dextrose 10 % in water (D10W), dextrose 10 % in water (D10W), dextrose, ondansetron OR ondansetron, traMADol Review of Systems: Review of Systems Constitutional: Negative. HENT: Negative. Eyes: Negative. Respiratory: Negative. Cardiovascular: Negative. Gastrointestinal: Negative. Endocrine: Negative. Genitourinary: Negative. Musculoskeletal: Negative. Skin: Negative. Neurological: Negative. Psychiatric/Behavioral: Negative. All other systems reviewed and are negative. Objective Vitals: Most Recent: Vitals: 08/03/24 1630 BP: 122/84 Pulse: Resp: Temp: SpO2: 24hr Min/Max: Temp Min: 36.9 C (98.4 F) Max: 36.9 C (98.4 F) Pulse Min: 115 Max: 115 BP Min: 122/84 Max: 130/84 Resp Min: 18 Max: 18 SpO2 Min: 100 % Max: 100 % LDA: Vent settings: Hemodynamic parameters for last 24 hours: No intake or output data in the 24 hours ending 08/03/24 1645 Physical exam: Physical Exam Vitals reviewed. Constitutional: Appearance: Normal appearance. HENT: Head: Normocephalic and atraumatic. Eyes: Conjunctiva/sclera: Conjunctivae normal. Pupils: Pupils are equal, round, and reactive to light. Cardiovascular: Rate and Rhythm: Normal rate and regular rhythm. Pulmonary: Effort: Pulmonary effort is normal. Breath sounds: Normal breath sounds. Abdominal: General: Abdomen is flat. Palpations: Abdomen is soft. Musculoskeletal: Comments: Right groin pain Skin: General: Skin is warm and dry. Neurological: General: No focal deficit present. Mental Status: He is alert and oriented to person, place, and time. Mental status is at baseline. Psychiatric: Mood and Affect: Mood normal. Behavior: Behavior normal. Lab/Radiology/Diagnostic Review: Results for orders placed or performed during the hospital encounter of 08/03/24 (from the past 24 hours) Urinalysis with Reflex Culture and Microscopic Result Value Ref Range Color, Urine Light-Yellow Light-Yellow, Yellow, Dark-Yellow Appearance, Urine Clear Clear Specific [place], Urine 1.036 (N) 1.005 - 1.035 pH, Urine 5.0 5.0, 5.5, 6.0, 6.5, 7.0, 7.5, 8.0 Protein, Urine 30 (1+) (A) NEGATIVE, 10 (TRACE), 20 (TRACE) mg/dL Glucose, Urine OVER (4+) (A) Normal mg/dL Blood, Urine NEGATIVE NEGATIVE Ketones, Urine OVER (4+) (A) NEGATIVE mg/dL Bilirubin, Urine NEGATIVE NEGATIVE Urobilinogen, Urine Normal Normal mg/dL Nitrite, Urine NEGATIVE NEGATIVE Leukocyte Esterase, Urine NEGATIVE NEGATIVE Urinalysis Microscopic Result Value Ref Range WBC, Urine 1-5 1-5, NONE /HPF RBC, Urine 1-2 NONE, 1-2, 3-5 /HPF Mucus, Urine FEW Reference range not established. /LPF CBC and Auto Differential Result Value Ref Range WBC 10.8 4.4 - 11.3 x10*3/uL nRBC 0.0 0.0 - 0.0 /100 WBCs RBC 4.35 (L) 4.50 - 5.90 x10*6/uL Hemoglobin 14.7 13.5 - 17.5 g/dL Hematocrit 42.5 41.0 - 52.0 % MCV 98 80 - 100 fL MCH 33.8 26.0 - 34.0 pg MCHC 34.6 32.0 - 36.0 g/dL RDW 11.8 11.5 - 14.5 % Platelets 180 150 - 450 x10*3/uL Neutrophils % 75.2 40.0 - 80.0 % Immature Granulocytes %, Automated 0.7 0.0 - 0.9 % Lymphocytes % 9.7 13.0 - 44.0 % Monocytes % 13.9 2.0 - 10.0 % Eosinophils % 0.1 0.0 - 6.0 % Basophils % 0.4 0.0 - 2.0 % Neutrophils Absolute 8.10 (H) 1.20 - 7.70 x10*3/uL Immature Granulocytes Absolute, Automated 0.08 0.00 - 0.70 x10*3/uL Lymphocytes Absolute 1.04 (L) 1.20 - 4.80 x10*3/uL Monocytes Absolute 1.50 (H) 0.10 - 1.00 x10*3/uL Eosinophils Absolute 0.01 0.00 - 0.70 x10*3/uL Basophils Absolute 0.04 0.00 - 0.10 x10*3/uL Comprehensive metabolic panel Result Value Ref Range Glucose 343 (H) 74 - 99 mg/dL Sodium 132 (L) 136 - 145 mmol/L Potassium 3.9 3.5 - 5.3 mmol/L Chloride 100 98 - 107 mmol/L Bicarbonate 7 (LL) 21 - 32 mmol/L Anion Gap 29 (H) 10 - 20 mmol/L Urea Nitrogen 11 6 - 23 mg/dL Creatinine 0.91 0.50 - 1.30 mg/dL eGFR >90 >60 mL/min/1.73m*2 Calcium 9.3 8.6 - 10.3 mg/dL Albumin 4.4 3.4 - 5.0 g/dL Alkaline Phosphatase 124 (H) 33 - 120 U/L Total Protein 7.5 6.4 - 8.2 g/dL AST 8 (L) 9 - 39 U/L Bilirubin, Total 1.1 0.0 - 1.2 mg/dL ALT 11 10 - 52 U/L Lactate Result Value Ref Range Lactate 0.8 0.4 - 2.0 mmol/L Sedimentation Rate Result Value Ref Range Sedimentation Rate 28 (H) 0 - 15 mm/h C-Reactive Protein Result Value Ref Range C-Reactive Protein 19.07 (H) <1.00 mg/dL Magnesium Result Value Ref Range Magnesium 1.83 1.60 - 2.40 mg/dL Phosphorus Result Value Ref Range Phosphorus 2.9 2.5 - 4.9 mg/dL Beta Hydroxybutyrate Result Value Ref Range Beta-Hydroxybutyrate 10.42 (H) 0.02 - 0.27 mmol/L Creatine Kinase Result Value Ref Range Creatine Kinase 66 0 - 325 U/L Blood Gas Venous Full Panel Result Value Ref Range POCT pH, Venous 7.10 (LL) 7.33 - 7.43 pH POCT pCO2, Venous 17 (L) 41 - 51 mm Hg POCT pO2, Venous 60 (H) 35 - 45 mm Hg POCT SO2, Venous 89 (H) 45 - 75 % POCT Oxy Hemoglobin, Venous 86.9 (H) 45.0 - 75.0 % POCT Hematocrit Calculated, Venous 42.0 41.0 - 52.0 % POCT Sodium, Venous 132 (L) 136 - 145 mmol/L POCT Potassium, Venous 3.8 3.5 - 5.3 mmol/L POCT Chloride, Venous 104 98 - 107 mmol/L POCT Ionized Calicum, Venous 1.27 1.10 - 1.33 mmol/L POCT Glucose, Venous 329 (H) 74 - 99 mg/dL POCT Lactate, Venous 0.8 0.4 - 2.0 mmol/L POCT Base Excess, Venous -22.4 (L) -2.0 - 3.0 mmol/L POCT HCO3 Calculated, Venous 5.3 (L) 22.0 - 26.0 mmol/L POCT Hemoglobin, Venous 14.1 13.5 - 17.5 g/dL POCT Anion Gap, Venous 27.0 (H) 10.0 - 25.0 mmol/L Patient Temperature 37.0 degrees Celsius FiO2 21 % POCT GLUCOSE Result Value Ref Range POCT Glucose 293 (H) 74 - 99 mg/dL POCT GLUCOSE Result Value Ref Range POCT Glucose 278 (H) 74 - 99 mg/dL POCT GLUCOSE Result Value Ref Range POCT Glucose 269 (H) 74 - 99 mg/dL Basic metabolic panel Result Value Ref Range Glucose 233 (H) 74 - 99 mg/dL Sodium 135 (L) 136 - 145 mmol/L Potassium 3.2 (L) 3.5 - 5.3 mmol/L Chloride 108 (H) 98 - 107 mmol/L Bicarbonate 8 (LL) 21 - 32 mmol/L Anion Gap 22 (H) 10 - 20 mmol/L Urea Nitrogen 10 6 - 23 mg/dL Creatinine 0.81 0.50 - 1.30 mg/dL eGFR >90 >60 mL/min/1.73m*2 Calcium 8.0 (L) 8.6 - 10.3 mg/dL Blood Gas Venous Result Value Ref Range POCT pH, Venous 7.13 (LL) 7.33 - 7.43 pH POCT pCO2, Venous 23 (L) 41 - 51 mm Hg POCT pO2, Venous 32 (L) 35 - 45 mm Hg POCT SO2, Venous 51 45 - 75 % POCT Oxy Hemoglobin, Venous 50.1 45.0 - 75.0 % POCT Base Excess, Venous -19.8 (L) -2.0 - 3.0 mmol/L POCT HCO3 Calculated, Venous 7.7 (L) 22.0 - 26.0 mmol/L Patient Temperature 37.0 degrees Celsius FiO2 21 % POCT GLUCOSE Result Value Ref Range POCT Glucose 218 (H) 74 - 99 mg/dL Blood Gas Venous Full Panel Result Value Ref Range POCT pH, Venous 7.16 (LL) 7.33 - 7.43 pH POCT pCO2, Venous 28 (L) 41 - 51 mm Hg POCT pO2, Venous 26 (L) 35 - 45 mm Hg POCT SO2, Venous 43 (L) 45 - 75 % POCT Oxy Hemoglobin, Venous 42.5 (L) 45.0 - 75.0 % POCT Hematocrit Calculated, Venous 40.0 (L) 41.0 - 52.0 % POCT Sodium, Venous 133 (L) 136 - 145 mmol/L POCT Potassium, Venous 3.3 (L) 3.5 - 5.3 mmol/L POCT Chloride, Venous 106 98 - 107 mmol/L POCT Ionized Calicum, Venous 1.31 1.10 - 1.33 mmol/L POCT Glucose, Venous 206 (H) 74 - 99 mg/dL POCT Lactate, Venous 0.9 0.4 - 2.0 mmol/L POCT Base Excess, Venous -17.3 (L) -2.0 - 3.0 mmol/L POCT HCO3 Calculated, Venous 10.0 (L) 22.0 - 26.0 mmol/L POCT Hemoglobin, Venous 13.2 (L) 13.5 - 17.5 g/dL POCT Anion Gap, Venous 20.0 10.0 - 25.0 mmol/L Patient Temperature 37.0 degrees Celsius FiO2 21 % POCT GLUCOSE Result Value Ref Range POCT Glucose 195 (H) 74 - 99 mg/dL POCT GLUCOSE Result Value Ref Range POCT Glucose 181 (H) 74 - 99 mg/dL CT abdomen pelvis w IV contrast Result Date: 08/03/2024 Interpreted By: Imtiaz Aly, STUDY: CT ABDOMEN PELVIS W IV CONTRAST; 08/03/2024 2:32 pm INDICATION:Signs/Symptoms:R pelvic pain, iliacus illiopsoas hematoma vs infection. COMPARISON: CT abdomen and pelvis without contrast 03 August 2024 at 0906 hours ACCESSION NUMBER(S): [id number] ORDERING CLINICIAN: JHON DEAN TECHNIQUE: CT of the abdomen and pelvis from the lung bases through the symphysis pubis after the uneventful administration of intravenous contrast (75 mL Omnipaque 350). No oral contrast. FINDINGS: LOWER CHEST: No acute airspace disease. BONES: No acute osseous findings. Right iliacus muscle expansile compared to other side. There was no acute hematoma on CT without contrast earlier today No abscess on CT with contrast presently LIVER: Normal. No enlargement or evidence of cirrhosis or fatty change. No mass or other suspect lesion. SPLEEN: Normal. No enlargement, mass or evidence of splenic vein thrombosis. PANCREAS: Normal. No CT evidence of acute or chronic pancreatitis. No duct dilation. No mass. GALLBLADDER: Normal CT appearance. No dilation, calcified, or gas-containing stones. Other types of gallstones could be occult on CT and detectable only by ultrasound. BILE DUCTS: Normal. No biliary duct dilation. ADRENAL GLANDS: Normal. No nodule or mass. KIDNEYS AND URETERS: Normal. No hydronephrosis on either side. No mass. Symmetric enhancement. No infarct or CT evidence of acute pyelonephritis. No substantial radiodense stone. Tiny stones and radiolucent stones could be occult on CT. LYMPH NODES: No adenopathy, intraperitoneal, retroperitoneal, pelvic or otherwise APPENDIX: Similar to earlier today. A portion of normal caliber proximal appendix compressed up against the back wall of the cecum but entirety of appendix not clearly delineated COLON: Normal. No sign of acute diverticulitis or other colitis. No annular constricting mass. SMALL BOWEL: Normal. No small bowel dilation or any other sign of small bowel obstruction. No sign of active inflammatory bowel disease. STOMACH / DUODENUM: Grossly normal by CT which has limited sensitivity and specificity for the stomach and duodenum. RETROPERITONEUM: Normal. No acute hemorrhage or inflammatory change. Lymph nodes in a separate dedicated section. OMENTUM, MESENTERY AND PERITONEAL SPACES: Free intraperitoneal air: Negative Free intraperitoneal fluid: Negative Abscess: Negative Other: n/a URINARY BLADDER: Distended but otherwise remains normal PELVIS: The prostate is not significantly enlarged. No pelvic mass, adenopathy or free fluid. VASCULATURE: No abdominal aortic or iliac artery aneurysm. No high grade stenosis of the major abdominal aortic branch vessels. Portal venous system patent. ABDOMINAL WALL: Hernia: Negative Other: No acute or contributory abnormality. IV contrast on the present exam could potentially obscure a muscular hematoma but there was no acute hematoma in the right iliacus muscle earlier today The present CT with contrast does not reveal a walled-off abscess in the right iliacus or anywhere else Otherwise, the remains uncertain the exact etiology of the right iliacus muscle edematous enlargement No new or newly evident acute findings with IV contrast As was the case earlier today, I suspect at least a demonstrable normal caliber proximal appendix against the back wall of the cecum but it is difficult to identify the mid and distal appendix. No calcified appendicolith No acute pancreatitis, hydronephrosis/urinary stone or any other acute solid organ findings No gallbladder or biliary duct dilation No perforation or abscess, only trace unchanged abnormal free pelvic fluid MACRO: None Signed by: Imtiaz Aly 08/03/2024 2:40 PM Dictation workstation: [id number] US scrotum w doppler Result Date: 08/03/2024 STUDY: Scrotal Ultrasound; 08/03/2024 9:48 am. INDICATION: Right testicular pain. COMPARISON: CT A/08/03/2024. ACCESSION NUMBER(S): [id number] ORDERING CLINICIAN: LAKESHA MENDOZA TECHNIQUE: Ultrasound of the scrotum and testicular spectral doppler evaluation performed. FINDINGS: The right testicle measures 5.1 x 2.3 x 3.5 cm. It demonstrates a normal homogeneous echotexture. Normal color and spectral Doppler flow is demonstrated. The right epididymal head measures 0.9 x 0.9 x 0.7 cm and demonstrates normal echogenicity. The left testicle measures 4.6 x 2.9 x 2.8 cm. It demonstrates a normal homogeneous echotexture. Normal color and spectral Doppler flow is demonstrated. The left epididymal head measures 1.2 x 0.9 x 0.8 cm and demonstrates normal echogenicity. Unremarkable scrotal ultrasound. Normal testicular spectral doppler evaluation. Signed by Sylvie Yin MD CT abdomen pelvis wo IV contrast Result Date: 08/03/2024 STUDY: CT Abdomen and Pelvis without IV Contrast; 08/03/2024 9:11 AM. INDICATION: Groin pain. COMPARISON: None Available. ACCESSION NUMBER(S): [id number] ORDERING CLINICIAN: LAKESHA MENDOZA TECHNIQUE: CT of the abdomen and pelvis was performed. Contiguous axial images were obtained at 3 mm slicethickness through the abdomen and pelvis. Coronal and sagittal reconstructions at 3 mm slice thickness were performed. No intravenous contrast was administered. Automated mA/kV exposure control was utilized and patient examination was performed in strict accordance with principles of ALARA. FINDINGS: Please note that the evaluation of vessels, lymph nodes and organs is limited without intravenouscontrast. LOWER CHEST: No cardiomegaly. No pericardial effusion. Multiple noncalcified nodules in the lung bases measuring up to 7 mm laterally in the left lower lobe ABDOMEN: LIVER: No hepatomegaly.Smooth surface contour. Normal attenuation. BILE DUCTS: No intrahepatic or extrahepatic biliary ductal dilatation. GALLBLADDER: The gallbladder is present without gallstones. STOMACH: No abnormalities identified. PANCREAS: No masses or ductal dilatation. SPLEEN: No splenomegaly or focal splenic lesion. ADRENAL GLANDS: No thickening or nodules. KIDNEYS AND URETERS: Kidneys are normal in size and location. No renal or ureteral calculi. PELVIS: BLADDER: Mild diffuse urinary bladder wall thickeningREPRODUCTIVE ORGANS: No abnormalities identified. BOWEL: . Moderate to large stool volume. A portion of the appendix is believed to be visualized and measures 5 to 6 mm, although the entire appendix is not clearly seen. VESSELS: No abnormalities identified. Abdominal aorta is normal in caliber. TERRANCE TONEUM/RETROPERITONEUM/LYMPH NODES: Trace pelvic free fluid. No pneumoperitoneum. No lymphadenopathy. ABDOMINAL WALL: No abnormalities identified. SOFT TISSUES: There is asymmetric enlargement of theright iliacus muscle measuring up to 3.8 cm in thickness with the left measuring 2.5 cm. There is also mild haziness surrounding the right iliacus muscle and distal aspect of the iliopsoas muscle BONES: No acute fracture or aggressive osseous lesion. L5 pars defects. 1. Asymmetric enlargement of the right iliacus muscle measuring up to 3.8 cm in thickness with the left measuring 2.5 cm. There is also mild haziness surrounding the right iliacus muscle and distal aspect of the iliopsoas muscle. Findings may be secondary to a hematoma or possible infection. Correlate with infectious symptoms. Consider further evaluation with contrast-enhanced CT or contrast-enhanced MRI. 2. Mild diffuse urinary bladder wall thickening. Correlate with urinalysis for possible cystitis. 3. Moderate to large stool volume. 4. Multiple noncalcified nodules in the lung bases measuring up to 7 mm laterally in the left lower lobe. Fleischner Society 2017 Guidelines for Management of Incidentally Detected Pulmonary Nodules in Adults: A. SOLID NODULES* Nodule Type and Size: Single:*Low Risk < 6 mm - No routine follow-up 6-8 mm - CT at 6-12 months, then consider CT at 18-24 months > 8 mm - Consider CT at 3 months, PET/CT, or tissue sampling *High Risk < 6 mm - Optional CT at 12 months 6-8 mm - CT at 6-12 months, then CT at 18-24 months > 8 mm - Consider CT at 3 months, PET/CT, or tissue sampling Multiple: *Low Risk < 6 mm - No routine follow-up 6-8 mm -CT at 3-6 months, then consider CT at 18-24 months > 8 mm - CT at 3-6 months, then consider CT at 18-24 months *High Risk < 6 mm - Optional CT at 12 months 6-8 mm - CT at 3-6 months, then at 18-24 months > 8 mm - CT at 3-6 months, then at 18-24 months B. SUBSOLID NODULES* Nodule Type and Size: Single: *Ground glass < 6 mm - No routine follow-up > 6 mm - CT at 6-12 months to confirm persistence, then CT every 2 years until 5 years *Part Solid < 6 mm - No routine follow-up > 6 mm - CT at 3-6 months to confirm persistence. If unchanged and solid component remains < 6 mm, annual CT should be performed for 5 years. Multiple: < 6 mm - CT at 3-6 months. If stable, consider CT at 2 and 4 years. > 6 mm - CT at 3-6 months. Subsequent management based on the most suspicious nodule(s). Note - These recommendations do not apply to lung cancer screening, patients with immunosuppression, or patients with known primary cancer. * Dimensions are average of long and shortaxes, rounded to the nearest millimeter. Consider all relevant risk factors. Signed by Satya Campo MD Assessment/Plan Assessment & Plan DKA, type 1, not at goal Isaias Estrella is a 23 y.o. male with PMHx s/f IDDM1 on basal and bolus insulin was requested to admit to the ICU because of diabetic ketoacidosis. On presentation his anion gap was 29 and a bicarb of 7. Diabetic ketoacidosis probably secondary to recent change in insulin regimen 08/03/2024: Started on insulin drip as per DKA protocol Aggressive IV fluids as per DKA protocol [id number] glucose every 1 hour and BMP every 4 hours while on insulin drip Can consider switching from IV insulin drip to Lantus 15 units daily and lispro insulin sliding scale level 3 ACHS one anion gap is less than 15 and bicarbonate more than 15 Turn off the insulin drip 2 hours after Lantus and the patient can be started on diabetic diet oncethe Lantus is administered DKA IV fluids can come off along with the insulin drip once the above parameters are achieved and patient can be downgraded to MedSurg with telemetry 2. Right groin pain CT abdomen pelvis with IV contrast was done based on the finding of of CT without contrast CT abdomen pelvis with IV contrast showed IV contrast on the present exam could potentially obscure a muscular hematoma but there was no acute hematoma in the right iliacus muscle earlier today. The present CT with contrast does not reveal a walled-off abscess in the right iliacus or anywhere else. Otherwise, the remains uncertain the exact etiology of the right iliacus muscleedematous enlargement . I spent 30 minutes of cumulative critical care time with the patient. Greater than 50% of that timewas spent in the direct collaboration and or coordination of care of the patient. [employer] dictation software was used to dictate this note and thus there may be minor errors in translation/nurse executive including garbled speech or misspellings. Please contact for clarification if needed. Ernesto Sinha MD [facility] Work Phone: [phone]) 661-259001-26-2025 Evaluation + Plan note* Assessment & Plan Note - Ernesto Sinha MD - 08/03/2024 4:52 PM ESTAssociated Problem(s): DKA, type 1, not at goal [facility] Work Phone: [phone] 151-302301-26-2025 Consult note* Ernesto Sinha MD - 08/03/2024 4:44 PM ESTAssociated Order(s): IP CONSULT TO TRAFFIC LAW ATTORNEY Critical Care Medicine Consult Reason For Consult Diabetic ketoacidosis History Of Present Illness Isaias Estrella is a 23 y.o. male with PMHx s/f IDDM1 on basal and bolus insulin was requested to admit to the ICU because of diabetic ketoacidosis. On presentation his anion gap was 29 and a bicarb of 7. On admission 08/03/2024: Patient presented to the ER with the right groin pain the patient had been lifting heavy materials at work earlier this week. Last 3-4 days had significant R groin pain. No fever no chills, no bowel or bladder symptoms. Pt had been eating poorly and had higher than normal glucose readings. On evaluation in the ED pt found to be in DKA, CT abdomen and pelvis rased concern for infection or abscess R groin. . History reviewed. No pertinent past medical history. History reviewed. No pertinent surgical history. (Not in a hospital admission) Patient has no known allergies. Social History Tobacco Use Smoking status: Unknown No family history on file. Scheduled Medications: polyethylene glycol, 17 g, oral, Daily sodium chloride, 1,000 mL, intravenous, Once Continuous Medications: D5 % and 0.9 % sodium chloride, 150 mL/hr, Last Rate: 150 mL/hr (08/03/24 1520) dextrose 10 % in water (D10W), 150 mL/hr dextrose 10 % in water (D10W), 150 mL/hr insulin regular, 0-50 Units/hr, Last Rate: 9.5 Units/hr (08/03/24 1305) sodium chloride, 250 mL/hr PRN Medications: PRN medications: D5 % and 0.9 % sodium chloride, dextrose 10 % in water (D10W), dextrose 10 % in water (D10W), dextrose, ondansetron OR ondansetron, traMADol Review of Systems: Review of Systems Constitutional: Negative. HENT: Negative. Eyes: Negative. Respiratory: Negative. Cardiovascular: Negative. Gastrointestinal: Negative. Endocrine: Negative. Genitourinary: Negative. Musculoskeletal: Negative. Skin: Negative. Neurological: Negative. Psychiatric/Behavioral: Negative. All other systems reviewed and are negative. Objective Vitals: Most Recent: Vitals: 08/03/24 1630 BP: 122/84 Pulse: Resp: Temp: SpO2: 24hr Min/Max: Temp Min: 36.9 C (98.4 F) Max: 36.9 C (98.4 F) Pulse Min: 115 Max: 115 BP Min: 122/84 Max: 130/84 Resp Min: 18 Max: 18 SpO2 Min: 100 % Max: 100 % LDA: Vent settings: Hemodynamic parameters for last 24 hours: No intake or output data in the 24 hours ending 08/03/24 1645 Physical exam: Physical Exam Vitals reviewed. Constitutional: Appearance: Normal appearance. HENT: Head: Normocephalic and atraumatic. Eyes: Conjunctiva/sclera: Conjunctivae normal. Pupils: Pupils are equal, round, and reactive to light. Cardiovascular: Rate and Rhythm: Normal rate and regular rhythm. Pulmonary: Effort: Pulmonary effort is normal. Breath sounds: Normal breath sounds. Abdominal: General: Abdomen is flat. Palpations: Abdomen is soft. Musculoskeletal: Comments: Right groin pain Skin: General: Skin is warm and dry. Neurological: General: No focal deficit present. Mental Status: He is alert and oriented to person, place, and time. Mental status is at baseline. Psychiatric: Mood and Affect: Mood normal. Behavior: Behavior normal. Lab/Radiology/Diagnostic Review: Results for orders placed or performed during the hospital encounter of 08/03/24 (from the past 24 hours) Urinalysis with Reflex Culture and Microscopic Result Value Ref Range Color, Urine Light-Yellow Light-Yellow, Yellow, Dark-Yellow Appearance, Urine Clear Clear Specific [place], Urine 1.036 (N) 1.005 - 1.035 pH, Urine 5.0 5.0, 5.5, 6.0, 6.5, 7.0, 7.5, 8.0 Protein, Urine 30 (1+) (A) NEGATIVE, 10 (TRACE), 20 (TRACE) mg/dL Glucose, Urine OVER (4+) (A) Normal mg/dL Blood, Urine NEGATIVE NEGATIVE Ketones, Urine OVER (4+) (A) NEGATIVE mg/dL Bilirubin, Urine NEGATIVE NEGATIVE Urobilinogen, Urine Normal Normal mg/dL Nitrite, Urine NEGATIVE NEGATIVE Leukocyte Esterase, Urine NEGATIVE NEGATIVE Urinalysis Microscopic Result Value Ref Range WBC, Urine 1-5 1-5, NONE /HPF RBC, Urine 1-2 NONE, 1-2, 3-5 /HPF Mucus, Urine FEW Reference range not established. /LPF CBC and Auto Differential Result Value Ref Range WBC 10.8 4.4 - 11.3 x10*3/uL nRBC 0.0 0.0 - 0.0 /100 WBCs RBC 4.35 (L) 4.50 - 5.90 x10*6/uL Hemoglobin 14.7 13.5 - 17.5 g/dL Hematocrit 42.5 41.0 - 52.0 % MCV 98 80 - 100 fL MCH 33.8 26.0 - 34.0 pg MCHC 34.6 32.0 - 36.0 g/dL RDW 11.8 11.5 - 14.5 % Platelets 180 150 - 450 x10*3/uL Neutrophils % 75.2 40.0 - 80.0 % Immature Granulocytes %, Automated 0.7 0.0 - 0.9 % Lymphocytes % 9.7 13.0 - 44.0 % Monocytes % 13.9 2.0 - 10.0 % Eosinophils % 0.1 0.0 - 6.0 % Basophils % 0.4 0.0 - 2.0 % Neutrophils Absolute 8.10 (H) 1.20 - 7.70 x10*3/uL Immature Granulocytes Absolute, Automated 0.08 0.00 - 0.70 x10*3/uL Lymphocytes Absolute 1.04 (L) 1.20 - 4.80 x10*3/uL Monocytes Absolute 1.50 (H) 0.10 - 1.00 x10*3/uL Eosinophils Absolute 0.01 0.00 - 0.70 x10*3/uL Basophils Absolute 0.04 0.00 - 0.10 x10*3/uL Comprehensive metabolic panel Result Value Ref Range Glucose 343 (H) 74 - 99 mg/dL Sodium 132 (L) 136 - 145 mmol/L Potassium 3.9 3.5 - 5.3 mmol/L Chloride 100 98 - 107 mmol/L Bicarbonate 7 (LL) 21 - 32 mmol/L Anion Gap 29 (H) 10 - 20 mmol/L Urea Nitrogen 11 6 - 23 mg/dL Creatinine 0.91 0.50 - 1.30 mg/dL eGFR >90 >60 mL/min/1.73m*2 Calcium 9.3 8.6 - 10.3 mg/dL Albumin 4.4 3.4 - 5.0 g/dL Alkaline Phosphatase 124 (H) 33 - 120 U/L Total Protein 7.5 6.4 - 8.2 g/dL AST 8 (L) 9 - 39 U/L Bilirubin, Total 1.1 0.0 - 1.2 mg/dL ALT 11 10 - 52 U/L Lactate Result Value Ref Range Lactate 0.8 0.4 - 2.0 mmol/L Sedimentation Rate Result Value Ref Range Sedimentation Rate 28 (H) 0 - 15 mm/h C-Reactive Protein Result Value Ref Range C-Reactive Protein 19.07 (H) <1.00 mg/dL Magnesium Result Value Ref Range Magnesium 1.83 1.60 - 2.40 mg/dL Phosphorus Result Value Ref Range Phosphorus 2.9 2.5 - 4.9 mg/dL Beta Hydroxybutyrate Result Value Ref Range Beta-Hydroxybutyrate 10.42 (H) 0.02 - 0.27 mmol/L Creatine Kinase Result Value Ref Range Creatine Kinase 66 0 - 325 U/L Blood Gas Venous Full Panel Result Value Ref Range POCT pH, Venous 7.10 (LL) 7.33 - 7.43 pH POCT pCO2, Venous 17 (L) 41 - 51 mm Hg POCT pO2, Venous 60 (H) 35 - 45 mm Hg POCT SO2, Venous 89 (H) 45 - 75 % POCT Oxy Hemoglobin, Venous 86.9 (H) 45.0 - 75.0 % POCT Hematocrit Calculated, Venous 42.0 41.0 - 52.0 % POCT Sodium, Venous 132 (L) 136 - 145 mmol/L POCT Potassium, Venous 3.8 3.5 - 5.3 mmol/L POCT Chloride, Venous 104 98 - 107 mmol/L POCT Ionized Calicum, Venous 1.27 1.10 - 1.33 mmol/L POCT Glucose, Venous 329 (H) 74 - 99 mg/dL POCT Lactate, Venous 0.8 0.4 - 2.0 mmol/L POCT Base Excess, Venous -22.4 (L) -2.0 - 3.0 mmol/L POCT HCO3 Calculated, Venous 5.3 (L) 22.0 - 26.0 mmol/L POCT Hemoglobin, Venous 14.1 13.5 - 17.5 g/dL POCT Anion Gap, Venous 27.0 (H) 10.0 - 25.0 mmol/L Patient Temperature 37.0 degrees Celsius FiO2 21 % POCT GLUCOSE Result Value Ref Range POCT Glucose 293 (H) 74 - 99 mg/dL POCT GLUCOSE Result Value Ref Range POCT Glucose 278 (H) 74 - 99 mg/dL POCT GLUCOSE Result Value Ref Range POCT Glucose 269 (H) 74 - 99 mg/dL Basic metabolic panel Result Value Ref Range Glucose 233 (H) 74 - 99 mg/dL Sodium 135 (L) 136 - 145 mmol/L Potassium 3.2 (L) 3.5 - 5.3 mmol/L Chloride 108 (H) 98 - 107 mmol/L Bicarbonate 8 (LL) 21 - 32 mmol/L Anion Gap 22 (H) 10 - 20 mmol/L Urea Nitrogen 10 6 - 23 mg/dL Creatinine 0.81 0.50 - 1.30 mg/dL eGFR >90 >60 mL/min/1.73m*2 Calcium 8.0 (L) 8.6 - 10.3 mg/dL Blood Gas Venous Result Value Ref Range POCT pH, Venous 7.13 (LL) 7.33 - 7.43 pH POCT pCO2, Venous 23 (L) 41 - 51 mm Hg POCT pO2, Venous 32 (L) 35 - 45 mm Hg POCT SO2, Venous 51 45 - 75 % POCT Oxy Hemoglobin, Venous 50.1 45.0 - 75.0 % POCT Base Excess, Venous -19.8 (L) -2.0 - 3.0 mmol/L POCT HCO3 Calculated, Venous 7.7 (L) 22.0 - 26.0 mmol/L Patient Temperature 37.0 degrees Celsius FiO2 21 % POCT GLUCOSE Result Value Ref Range POCT Glucose 218 (H) 74 - 99 mg/dL Blood Gas Venous Full Panel Result Value Ref Range POCT pH, Venous 7.16 (LL) 7.33 - 7.43 pH POCT pCO2, Venous 28 (L) 41 - 51 mm Hg POCT pO2, Venous 26 (L) 35 - 45 mm Hg POCT SO2, Venous 43 (L) 45 - 75 % POCT Oxy Hemoglobin, Venous 42.5 (L) 45.0 - 75.0 % POCT Hematocrit Calculated, Venous 40.0 (L) 41.0 - 52.0 % POCT Sodium, Venous 133 (L) 136 - 145 mmol/L POCT Potassium, Venous 3.3 (L) 3.5 - 5.3 mmol/L POCT Chloride, Venous 106 98 - 107 mmol/L POCT Ionized Calicum, Venous 1.31 1.10 - 1.33 mmol/L POCT Glucose, Venous 206 (H) 74 - 99 mg/dL POCT Lactate, Venous 0.9 0.4 - 2.0 mmol/L POCT Base Excess, Venous -17.3 (L) -2.0 - 3.0 mmol/L POCT HCO3 Calculated, Venous 10.0 (L) 22.0 - 26.0 mmol/L POCT Hemoglobin, Venous 13.2 (L) 13.5 - 17.5 g/dL POCT Anion Gap, Venous 20.0 10.0 - 25.0 mmol/L Patient Temperature 37.0 degrees Celsius FiO2 21 % POCT GLUCOSE Result Value Ref Range POCT Glucose 195 (H) 74 - 99 mg/dL POCT GLUCOSE Result Value Ref Range POCT Glucose 181 (H) 74 - 99 mg/dL CT abdomen pelvis w IV contrast Result Date: 08/03/2024 Interpreted By: Imtiaz Aly, STUDY: CT ABDOMEN PELVIS W IV CONTRAST; 08/03/2024 2:32 pm INDICATION:Signs/Symptoms:R pelvic pain, iliacus illiopsoas hematoma vs infection. COMPARISON: CT abdomen and pelvis without contrast 03 August 2024 at 0906 hours ACCESSION NUMBER(S): [id number] ORDERING CLINICIAN: JHON DEAN TECHNIQUE: CT of the abdomen and pelvis from the lung bases through the symphysis pubis after the uneventful administration of intravenous contrast (75 mL Omnipaque 350). No oral contrast. FINDINGS: LOWER CHEST: No acute airspace disease. BONES: No acute osseous findings. Right iliacus muscle expansile compared to other side. There was no acute hematoma on CT without contrast earlier today No abscess on CT with contrast presently LIVER: Normal. No enlargement or evidence of cirrhosis or fatty change. No mass or other suspect lesion. SPLEEN: Normal. No enlargement, mass or evidence of splenic vein thrombosis. PANCREAS: Normal. No CT evidence of acute or chronic pancreatitis. No duct dilation. No mass. GALLBLADDER: Normal CT appearance. No dilation, calcified, or gas-containing stones. Other types of gallstones could be occult on CT and detectable only by ultrasound. BILE DUCTS: Normal. No biliary duct dilation. ADRENAL GLANDS: Normal. No nodule or mass. KIDNEYS AND URETERS: Normal. No hydronephrosis on either side. No mass. Symmetric enhancement. No infarct or CT evidence of acute pyelonephritis. No substantial radiodense stone. Tiny stones and radiolucent stones could be occult on CT. LYMPH NODES: No adenopathy, intraperitoneal, retroperitoneal, pelvic or otherwise APPENDIX: Similar to earlier today. A portion of normal caliber proximal appendix compressed up against the back wall of the cecum but entirety of appendix not clearly delineated COLON: Normal. No sign of acute diverticulitis or other colitis. No annular constricting mass. SMALL BOWEL: Normal. No small bowel dilation or any other sign of small bowel obstruction. No sign of active inflammatory bowel disease. STOMACH / DUODENUM: Grossly normal by CT which has limited sensitivity and specificity for the stomach and duodenum. RETROPERITONEUM: Normal. No acute hemorrhage or inflammatory change. Lymph nodes in a separate dedicated section. OMENTUM, MESENTERY AND PERITONEAL SPACES: Free intraperitoneal air: Negative Free intraperitoneal fluid: Negative Abscess: Negative Other: n/a URINARY BLADDER: Distended but otherwise remains normal PELVIS: The prostate is not significantly enlarged. No pelvic mass, adenopathy or free fluid. VASCULATURE: No abdominal aortic or iliac artery aneurysm. No high grade stenosis of the major abdominal aortic branch vessels. Portal venous system patent. ABDOMINAL WALL: Hernia: Negative Other: No acute or contributory abnormality. IV contrast on the present exam could potentially obscure a muscular hematoma but there was no acute hematoma in the right iliacus muscle earlier today The present CT with contrast does not reveal a walled-off abscess in the right iliacus or anywhere else Otherwise, the remains uncertain the exact etiology of the right iliacus muscle edematous enlargement No new or newly evident acute findings with IV contrast As was the case earlier today, I suspect at least a demonstrable normal caliber proximal appendix against the back wall of the cecum but it is difficult to identify the mid and distal appendix. No calcified appendicolith No acute pancreatitis, hydronephrosis/urinary stone or any other acute solid organ findings No gallbladder or biliary duct dilation No perforation or abscess, only trace unchanged abnormal free pelvic fluid MACRO: None Signed by: Imtiaz Aly 08/03/2024 2:40 PM Dictation workstation: [id number] US scrotum w doppler Result Date: 08/03/2024 STUDY: Scrotal Ultrasound; 08/03/2024 9:48 am. INDICATION: Right testicular pain. COMPARISON: CT A/08/03/2024. ACCESSION NUMBER(S): [id number] ORDERING CLINICIAN: LAKESHA MENDOZA TECHNIQUE: Ultrasound of the scrotum and testicular spectral doppler evaluation performed. FINDINGS: The right testicle measures 5.1 x 2.3 x 3.5 cm. It demonstrates a normal homogeneous echotexture. Normal color and spectral Doppler flow is demonstrated. The right epididymal head measures 0.9 x 0.9 x 0.7 cm and demonstrates normal echogenicity. The left testicle measures 4.6 x 2.9 x 2.8 cm. It demonstrates a normal homogeneous echotexture. Normal color and spectral Doppler flow is demonstrated. The left epididymal head measures 1.2 x 0.9 x 0.8 cm and demonstrates normal echogenicity. Unremarkable scrotal ultrasound. Normal testicular spectral doppler evaluation. Signed by Sylvie Yin MD CT abdomen pelvis wo IV contrast Result Date: 08/03/2024 STUDY: CT Abdomen and Pelvis without IV Contrast; 08/03/2024 9:11 AM. INDICATION: Groin pain. COMPARISON: None Available. ACCESSION NUMBER(S): [id number] ORDERING CLINICIAN: LAKESHA MENDOZA TECHNIQUE: CT of the abdomen and pelvis was performed. Contiguous axial images were obtained at 3 mm slicethickness through the abdomen and pelvis. Coronal and sagittal reconstructions at 3 mm slice thickness were performed. No intravenous contrast was administered. Automated mA/kV exposure control was utilized and patient examination was performed in strict accordance with principles of ALARA. FINDINGS: Please note that the evaluation of vessels, lymph nodes and organs is limited without intravenouscontrast. LOWER CHEST: No cardiomegaly. No pericardial effusion. Multiple noncalcified nodules in the lung bases measuring up to 7 mm laterally in the left lower lobe ABDOMEN: LIVER: No hepatomegaly.Smooth surface contour. Normal attenuation. BILE DUCTS: No intrahepatic or extrahepatic biliary ductal dilatation. GALLBLADDER: The gallbladder is present without gallstones. STOMACH: No abnormalities identified. PANCREAS: No masses or ductal dilatation. SPLEEN: No splenomegaly or focal splenic lesion. ADRENAL GLANDS: No thickening or nodules. KIDNEYS AND URETERS: Kidneys are normal in size and location. No renal or ureteral calculi. PELVIS: BLADDER: Mild diffuse urinary bladder wall thickeningREPRODUCTIVE ORGANS: No abnormalities identified. BOWEL: . Moderate to large stool volume. A portion of the appendix is believed to be visualized and measures 5 to 6 mm, although the entire appendix is not clearly seen. VESSELS: No abnormalities identified. Abdominal aorta is normal in caliber. TERRANCE TONEUM/RETROPERITONEUM/LYMPH NODES: Trace pelvic free fluid. No pneumoperitoneum. No lymphadenopathy. ABDOMINAL WALL: No abnormalities identified. SOFT TISSUES: There is asymmetric enlargement of theright iliacus muscle measuring up to 3.8 cm in thickness with the left measuring 2.5 cm. There is also mild haziness surrounding the right iliacus muscle and distal aspect of the iliopsoas muscle BONES: No acute fracture or aggressive osseous lesion. L5 pars defects. 1. Asymmetric enlargement of the right iliacus muscle measuring up to 3.8 cm in thickness with the left measuring 2.5 cm. There is also mild haziness surrounding the right iliacus muscle and distal aspect of the iliopsoas muscle. Findings may be secondary to a hematoma or possible infection. Correlate with infectious symptoms. Consider further evaluation with contrast-enhanced CT or contrast-enhanced MRI. 2. Mild diffuse urinary bladder wall thickening. Correlate with urinalysis for possible cystitis. 3. Moderate to large stool volume. 4. Multiple noncalcified nodules in the lung bases measuring up to 7 mm laterally in the left lower lobe. Fleischner Society 2017 Guidelines for Management of Incidentally Detected Pulmonary Nodules in Adults: A. SOLID NODULES* Nodule Type and Size: Single:*Low Risk < 6 mm - No routine follow-up 6-8 mm - CT at 6-12 months, then consider CT at 18-24 months > 8 mm - Consider CT at 3 months, PET/CT, or tissue sampling *High Risk < 6 mm - Optional CT at 12 months 6-8 mm - CT at 6-12 months, then CT at 18-24 months > 8 mm - Consider CT at 3 months, PET/CT, or tissue sampling Multiple: *Low Risk < 6 mm - No routine follow-up 6-8 mm -CT at 3-6 months, then consider CT at 18-24 months > 8 mm - CT at 3-6 months, then consider CT at 18-24 months *High Risk < 6 mm - Optional CT at 12 months 6-8 mm - CT at 3-6 months, then at 18-24 months > 8 mm - CT at 3-6 months, then at 18-24 months B. SUBSOLID NODULES* Nodule Type and Size: Single: *Ground glass < 6 mm - No routine follow-up > 6 mm - CT at 6-12 months to confirm persistence, then CT every 2 years until 5 years *Part Solid < 6 mm - No routine follow-up > 6 mm - CT at 3-6 months to confirm persistence. If unchanged and solid component remains < 6 mm, annual CT should be performed for 5 years. Multiple: < 6 mm - CT at 3-6 months. If stable, consider CT at 2 and 4 years. > 6 mm - CT at 3-6 months. Subsequent management based on the most suspicious nodule(s). Note - These recommendations do not apply to lung cancer screening, patients with immunosuppression, or patients with known primary cancer. * Dimensions are average of long and shortaxes, rounded to the nearest millimeter. Consider all relevant risk factors. Signed by Satya Campo MD Assessment/Plan Assessment & Plan DKA, type 1, not at goal Isaias Estrella is a 23 y.o. male with PMHx s/f IDDM1 on basal and bolus insulin was requested to admit to the ICU because of diabetic ketoacidosis. On presentation his anion gap was 29 and a bicarb of 7. Diabetic ketoacidosis probably secondary to recent change in insulin regimen 08/03/2024: Started on insulin drip as per DKA protocol Aggressive IV fluids as per DKA protocol [id number] glucose every 1 hour and BMP every 4 hours while on insulin drip Can consider switching from IV insulin drip to Lantus 15 units daily and lispro insulin sliding scale level 3 ACHS one anion gap is less than 15 and bicarbonate more than 15 Turn off the insulin drip 2 hours after Lantus and the patient can be started on diabetic diet oncethe Lantus is administered DKA IV fluids can come off along with the insulin drip once the above parameters are achieved and patient can be downgraded to MedSurg with telemetry 2. Right groin pain CT abdomen pelvis with IV contrast was done based on the finding of of CT without contrast CT abdomen pelvis with IV contrast showed IV contrast on the present exam could potentially obscure a muscular hematoma but there was no acute hematoma in the right iliacus muscle earlier today. The present CT with contrast does not reveal a walled-off abscess in the right iliacus or anywhere else. Otherwise, the remains uncertain the exact etiology of the right iliacus muscleedematous enlargement . I spent 30 minutes of cumulative critical care time with the patient. Greater than 50% of that timewas spent in the direct collaboration and or coordination of care of the patient. [employer] dictation software was used to dictate this note and thus there may be minor errors in translation/nurse executive including garbled speech or misspellings. Please contact for clarification if needed. Ernesto Sinha MD [facility] Work Phone: [phone] NoteUnremarkable scrotal ultrasound. Normal testicular spectral doppler evaluation. Signed by Sylvie Yin MD [id number] Emergency department Note* Lakesha Mendoza, ULTRASOUND APPLICATIONS SPECIALIST-DEALERSHIP MANAGER - 08/03/2024 8:15 AM ESTAssociated Order(s): Critical Care Chief Complaint Patient presents with Groin Pain Reports pain in groin region. And testicular pain- radiating down leg. Reports started evening. 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 HPI 23 year old male presents to the Emergency Department today complaining of a 3-4 day history of right groin pain that he describes as sharp in nature, radiates to his right testicle/leg, and varies in intensity. Denies any associated fever, chills, headache, neck pain, chest pain, shortness of breath, abdominal pain, nausea, vomiting, diarrhea, constipation, hematemesis, hematochezia, melena, or urinary symptoms. Sexually active with a female monogamous partner. No penile discharge or drainage noted. History provided by: Patient Patient History History reviewed. No pertinent past medical history. History reviewed. No pertinent surgical history. No family history on file. Social History Tobacco Use Smoking status: Unknown Smokeless tobacco: Not on file Substance Use Topics Alcohol use: Not on file Drug use: Not on file Physical Exam Constitutional: Appearance: Normal appearance. HENT: Head: Normocephalic. Right Ear: External ear normal. Left Ear: External ear normal. Nose: Nose normal. Mouth/Throat: Mouth: Mucous membranes are moist. Pharynx: Oropharynx is clear. No oropharyngeal exudate or posterior oropharyngeal erythema. Eyes: Conjunctiva/sclera: Conjunctivae normal. Pupils: Pupils are equal, round, and reactive to light. Cardiovascular: Rate and Rhythm: Normal rate and regular rhythm. Pulses: Radial pulses are 3+ on the right side and 3+ on the left side. Dorsalis pedis pulses are 3+ on the right side and 3+ on the left side. Heart sounds: Normal heart sounds. No murmur heard. No friction rub. No gallop. Pulmonary: Effort: Pulmonary effort is normal. No respiratory distress. Breath sounds: Normal breath sounds. No wheezing, rhonchi or rales. Abdominal: General: Abdomen is flat. Bowel sounds are normal. Palpations: Abdomen is soft. Tenderness: There is no abdominal tenderness. There is no right CVA tenderness, left CVA tenderness, guarding or rebound. Negative signs include Hart's sign and McBurney's sign. Genitourinary: Comments: Normal appearing external genitalia. No condylomata wart, herpetic vesicle, or syphiliticchancre. No penile discharge noted. Testicles have normal lie. Cremasteric reflex is intact bilaterally. No masses or lesions noted. Musculoskeletal: General: No swelling or deformity. Cervical back: Full passive range of motion without pain. Right lower leg: No edema. Left lower leg: No edema. Lymphadenopathy: Cervical: No cervical adenopathy. Skin: Capillary Refill: Capillary refill takes less than 2 seconds. Coloration: Skin is not jaundiced. Findings: No rash. Neurological: General: No focal deficit present. Mental Status: He is alert and oriented to person, place, and time. Mental status is at baseline. Gait: Gait is intact. Psychiatric: Mood and Affect: Mood normal. Behavior: Behavior is cooperative. Labs Reviewed URINALYSIS WITH REFLEX CULTURE AND MICROSCOPIC - Abnormal Result Value Color, Urine Light-Yellow Appearance, Urine Clear Specific [place], Urine 1.036 (*) pH, Urine 5.0 Protein, Urine 30 (1+) (*) Glucose, Urine OVER (4+) (*) Blood, Urine NEGATIVE Ketones, Urine OVER (4+) (*) Bilirubin, Urine NEGATIVE Urobilinogen, Urine Normal Nitrite, Urine NEGATIVE Leukocyte Esterase, Urine NEGATIVE Narrative: OVER is reported when the result is greater than the clinically reportable range. CBC WITH AUTO DIFFERENTIAL - Abnormal WBC 10.8 nRBC 0.0 RBC 4.35 (*) Hemoglobin 14.7 Hematocrit 42.5 MCV 98 MCH 33.8 MCHC 34.6 RDW 11.8 Platelets 180 Neutrophils % 75.2 Immature Granulocytes %, Automated 0.7 Lymphocytes % 9.7 Monocytes % 13.9 Eosinophils % 0.1 Basophils % 0.4 Neutrophils Absolute 8.10 (*) Immature Granulocytes Absolute, Automated 0.08 Lymphocytes Absolute 1.04 (*) Monocytes Absolute 1.50 (*) Eosinophils Absolute 0.01 Basophils Absolute 0.04 COMPREHENSIVE METABOLIC PANEL - Abnormal Glucose 343 (*) Sodium 132 (*) Potassium 3.9 Chloride 100 Bicarbonate 7 (*) Anion Gap 29 (*) Urea Nitrogen 11 Creatinine 0.91 eGFR >90 Calcium 9.3 Albumin 4.4 Alkaline Phosphatase 124 (*) Total Protein 7.5 AST 8 (*) Bilirubin, Total 1.1 ALT 11 SEDIMENTATION RATE, AUTOMATED - Abnormal Sedimentation Rate 28 (*) C-REACTIVE PROTEIN - Abnormal C-Reactive Protein 19.07 (*) BETA HYDROXYBUTYRATE - Abnormal Beta-Hydroxybutyrate 10.42 (*) Narrative: The beta-hydroxybutyrate test performance characteristics have been validated by [facility]. This test has not been approved by the FDA; however,such approval is not necessary. BLOOD GAS VENOUS FULL PANEL - Abnormal POCT pH, Venous 7.10 (*) POCT pCO2, Venous 17 (*) POCT pO2, Venous 60 (*) POCT SO2, Venous 89 (*) POCT Oxy Hemoglobin, Venous 86.9 (*) POCT Hematocrit Calculated, Venous 42.0 POCT Sodium, Venous 132 (*) POCT Potassium, Venous 3.8 POCT Chloride, Venous 104 POCT Ionized Calicum, Venous 1.27 POCT Glucose, Venous 329 (*) POCT Lactate, Venous 0.8 POCT Base Excess, Venous -22.4 (*) POCT HCO3 Calculated, Venous 5.3 (*) POCT Hemoglobin, Venous 14.1 POCT Anion Gap, Venous 27.0 (*) Patient Temperature 37.0 FiO2 21 BASIC METABOLIC PANEL - Abnormal Glucose 233 (*) Sodium 135 (*) Potassium 3.2 (*) Chloride 108 (*) Bicarbonate 8 (*) Anion Gap 22 (*) Urea Nitrogen 10 Creatinine 0.81 eGFR >90 Calcium 8.0 (*) BLOOD GAS VENOUS - Abnormal POCT pH, Venous 7.13 (*) POCT pCO2, Venous 23 (*) POCT pO2, Venous 32 (*) POCT SO2, Venous 51 POCT Oxy Hemoglobin, Venous 50.1 POCT Base Excess, Venous -19.8 (*) POCT HCO3 Calculated, Venous 7.7 (*) Patient Temperature 37.0 FiO2 21 BLOOD GAS VENOUS FULL PANEL - Abnormal POCT pH, Venous 7.16 (*) POCT pCO2, Venous 28 (*) POCT pO2, Venous 26 (*) POCT SO2, Venous 43 (*) POCT Oxy Hemoglobin, Venous 42.5 (*) POCT Hematocrit Calculated, Venous 40.0 (*) POCT Sodium, Venous 133 (*) POCT Potassium, Venous 3.3 (*) POCT Chloride, Venous 106 POCT Ionized Calicum, Venous 1.31 POCT Glucose, Venous 206 (*) POCT Lactate, Venous 0.9 POCT Base Excess, Venous -17.3 (*) POCT HCO3 Calculated, Venous 10.0 (*) POCT Hemoglobin, Venous 13.2 (*) POCT Anion Gap, Venous 20.0 Patient Temperature 37.0 FiO2 21 POCT GLUCOSE - Abnormal POCT Glucose 293 (*) POCT GLUCOSE - Abnormal POCT Glucose 278 (*) POCT GLUCOSE - Abnormal POCT Glucose 269 (*) POCT GLUCOSE - Abnormal POCT Glucose 218 (*) LACTATE - Normal Lactate 0.8 Narrative: Venipuncture immediately after or during the administration of Metamizole may lead to falsely low results. Testing should be performed immediately prior to Metamizole dosing. MAGNESIUM - Normal Magnesium 1.83 PHOSPHORUS - Normal Phosphorus 2.9 CREATINE KINASE - Normal Creatine Kinase 66 URINALYSIS WITH REFLEX CULTURE AND MICROSCOPIC Narrative: The following orders were created for panel order Urinalysis with Reflex Culture and Microscopic. Procedure Abnormality Status --------- ------ Urinalysis with Reflex C...[[id number]] Abnormal Final result Extra Urine Varma Tube[[id number]] In process Please view results for these tests on the individual orders. EXTRA URINE VARMA TUBE BASIC METABOLIC PANEL BASIC METABOLIC PANEL POCT GLUCOSE METER POCT GLUCOSE METER POCT GLUCOSE METER POCT GLUCOSE METER POCT GLUCOSE METER POCT GLUCOSE METER POCT GLUCOSE METER POCT GLUCOSE METER POCT GLUCOSE METER POCT GLUCOSE METER POCT GLUCOSE METER POCT GLUCOSE METER POCT GLUCOSE METER POCT GLUCOSE METER POCT GLUCOSE METER POCT GLUCOSE METER POCT GLUCOSE METER POCT GLUCOSE METER POCT GLUCOSE METER POCT GLUCOSE METER POCT GLUCOSE METER POCT GLUCOSE METER POCT GLUCOSE METER POCT GLUCOSE METER URINALYSIS MICROSCOPIC WITH REFLEX CULTURE WBC, Urine 1-5 RBC, Urine 1-2 Mucus, Urine FEW CT abdomen pelvis w IV contrast Final Result IV contrast on the present exam could potentially obscure a muscular hematoma but there was no acute hematoma in the right iliacus muscle earlier today The present CT with contrast does not reveal a walled-off abscess in the right iliacus or anywhere else Otherwise, the remains uncertain the exact etiology of the right iliacus muscle edematous enlargement No new or newly evident acute findings with IV contrast As was the case earlier today, I suspect at least a demonstrable normal caliber proximal appendix against the back wall of the cecum but it is difficult to identify the mid and distal appendix. No calcified appendicolith No acute pancreatitis, hydronephrosis/urinary stone or any other acute solid organ findings No gallbladder or biliary duct dilation No perforation or abscess, only trace unchanged abnormal free pelvic fluid MACRO: None Signed by: Imtiaz Aly 08/03/2024 2:40 PM Dictation workstation: [id number] US scrotum w doppler Final Result Unremarkable scrotal ultrasound. Normal testicular spectral doppler evaluation. Signed by Sylvie Yin MD CT abdomen pelvis wo IV contrast Final Result 1. Asymmetric enlargement of the right iliacus muscle measuring up to 3.8 cm in thickness with the left measuring 2.5 cm. There is also mild haziness surrounding the right iliacus muscle and distal aspect of the iliopsoas muscle. Findings may be secondary to a hematoma or possible infection. Correlate with infectious symptoms. Consider further evaluation with contrast-enhanced CT or contrast-enhanced MRI. 2. Mild diffuse urinary bladder wall thickening. Correlate with urinalysis for possible cystitis. 3. Moderate to large stool volume. 4. Multiple noncalcified nodules in the lung bases measuring up to 7 mm laterally in the left lower lobe. Fleischner Society 2017 Guidelines for Management of Incidentally Detected Pulmonary Nodules in Adults: A. SOLID NODULES* Nodule Type and Size: Single: *Low Risk < 6 mm - No routine follow-up 6-8 mm - CT at 6-12 months, then consider CT at 18-24 months > 8 mm - Consider CT at 3 months, PET/CT, or tissue sampling *High Risk < 6 mm - Optional CT at 12 months 6-8 mm - CT at 6-12 months, then CT at 18-24 months > 8 mm - Consider CT at 3 months, PET/CT, or tissue sampling Multiple: *Low Risk < 6 mm - No routine follow-up 6-8 mm - CT at 3-6 months, then consider CT at 18-24 months > 8 mm - CT at 3-6 months, then consider CT at 18-24 months *High Risk < 6 mm - Optional CT at 12 months 6-8 mm - CT at 3-6 months, then at 18-24 months > 8 mm - CT at 3-6 months, then at 18-24 months B. SUBSOLID NODULES* Nodule Type and Size: Single: *Ground glass < 6 mm - No routine follow-up > 6 mm - CT at 6-12 months to confirm persistence, then CT every 2 years until 5 years *Part Solid < 6 mm - No routine follow-up > 6 mm - CT at 3-6 months to confirm persistence. If unchanged and solid component remains < 6 mm, annual CT should be performed for 5 years. Multiple: < 6 mm - CT at 3-6 months. If stable, consider CT at 2 and 4 years. > 6 mm - CT at 3-6 months. Subsequent management based on the most suspicious nodule(s). Note - These recommendations do not apply to lung cancer screening, patients with immunosuppression, or patients with known primary cancer. * Dimensions are average of long and short axes, rounded to the nearest millimeter. Consider all relevant risk factors. Signed by Satya Campo MD ED Course & [facility] ED Course as of 08/03/24 1525 Sun Aug 03, [address] scan findings. Patient is diabetic so he is at increased risk of infection. Labs ordered to further evaluate for such. Had ketones in his urine. Therefore, he was given 1 Liter of NS. [JZ] 1212 Reviewed labs and he is noted to be in DKA. Getting a room for him in the treatment area. Additional labs added. Given IV fluids and started on an insulin drip. [JZ] [address] Sinha, geriatric social work professor, who agrees to see the patient on consult in the ICU. [JZ] ED Course User Index [JZ] Lakesha Mendoza APRN-DEALERSHIP MANAGER Diagnoses as of 08/03/24 1525 DKA, type 1, not at goal Right inguinal pain Medical Decision Making Patient was seen and evaluated by Dr. Dinero. Originally given an injection of Toradol with improvement in his pain. Urinalysis showed no signs of infection, but did show large ketones. US of his scrotum showed unremarkable scrotal ultrasound with normal testicular spectral doppler evaluation. CTscan of his abdomen and pelvis without contrast shows asymmetric enlargement of the right iliacus muscle measuring up to 3.8 cm in thickness with the left measuring 2.5 cm; mild haziness surrounding the right iliacus muscle and distal aspect of the iliopsoas muscle- findings may be secondary to a hematoma or possible infection; mild diffuse urinary bladder wall thickening- no clinical signs of cystitis; moderate to large stool volume; and multiple noncalcified nodules in the lung bases measuring up to 7 mm laterally in the left lower lobe. With the possibility of infection and ketones noted in his urine, further work up was initiated. Placed on a potline monitor which showed normal sinus rhythm without ectopy throughout ED stay. Rhythm strip obtained showed normal sinus rhythm. Impression: No acute pathology. Continuous pulse oximetry monitoring showed no signs of hypoxia. Saline lock was established with labs drawn and results as above. Venous blood gas shows pH of 7.10, CO2- 17, andHCO3 of 5.3. Beta- hydroxybutrate of 10.42. Glucose of 343, bicarbonate of 7 with anion gap of 29. Noted to have elevated inflammatory markers as well. Blood counts, remainder of electrolytes, kidney function, liver function, CK, and lactate were unremarkable. Given 2 Liters of normal saline wide open over 2 hours. Placed on an insulin drip to treat his DKA. After receiving the medications and IV fluids, his blood sugar was improving. DKA protocol was administered with hourly accuchecks and repeat labs as directed. Discussed the case with geriatric social work professor who agrees to see the patient on consult. Case was discussed with Joseph Dean CNP, [facility], who agrees to place the patient under 23 hour observation for further evaluation and care. Will be transferred to the ICU in guarded condition. Diagnostic Impression: 1. Acute DKA 2. Acute right groin pain 3. IM injection 4. IV meds and fluids in ED 5. Critical care time 45 minutes Your medication list ASK your doctor about these medications Instructions Last Dose Given Next Dose Due insulin lispro 100 unit/mL injection Procedure Critical Care Performed by: JUWAN Casey Authorized by: Faby Dinero MD Critical care provider statement: Critical care time (minutes): 45 Critical care time was exclusive of: Separately billable procedures and treating other patients Critical care was necessary to treat or prevent imminent or life-threatening deterioration of the following conditions: Endocrine crisis Critical care was time spent personally by me on the following activities: Blood draw for specimens, development of treatment plan with patient or surrogate, discussions with consultants, evaluation of patient's response to treatment, obtaining history from patient or surrogate, re-evaluation of patient's condition, pulse oximetry, ordering and review of radiographic studies, ordering and review of laboratory studies and ordering and performing treatments and interventions JUWAN Casey 08/03/24 1525 Cosigned by Faby Dinero MD at 08/03/2024 7:51 PM EST Associated attestation - Faby Dinero MD - 08/03/2024 7:51 PM EST I was present during all critical and barkley portions of the procedure(s) and immediately available [facility] services the entire duration. See resident note for details. This patient was seen by the advanced practice provider. I have personally performed a substantive portion of the encounter. I have seen and examined the patient; agree with the workup, evaluation, MDM, management and diagnosis. The care plan has been discussed. I personally saw the patient and made/approved the management plan and take responsibility for the patient management. History: Patient presents emergency department secondary to right groin pain. This has been presentfor the past 3 to 4 days. No fever or chills. No nausea or vomiting or diarrhea. No constipation orhematemesis. No other symptoms at this time. Exam: Patient is afebrile and stable. Patient does smell of ketones in the room. Heart rate is regular. Lungs are clear to auscultation. Abdomen is soft and nontender. Extremities are nontender with no edema. MDM: Laboratory workup was performed and this shows evidence of diabetic ketoacidosis. Patient was started on IV fluids and an insulin drip. CT scan does show inflammation of pelvic muscle. CPK is within normal limits. Patient is treated for pain. At this time patient requires admission to the hospital to the ICU for management of diabetic ketoacidosis. Patient is discussed with the geriatric social work professor and also with the IMS physician for admission. documented in this [facility] Work Phone: [phone] Physician Emergency department Note* Lakesha Mendoza, ULTRASOUND APPLICATIONS SPECIALIST-DEALERSHIP MANAGER - 08/03/2024 8:15 AM ESTAssociated Order(s): Critical Care Chief Complaint Patient presents with Groin Pain Reports pain in groin region. And testicular pain- radiating down leg. Reports started evening. 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 HPI 23 year old male presents to the Emergency Department today complaining of a 3-4 day history of right groin pain that he describes as sharp in nature, radiates to his right testicle/leg, and varies in intensity. Denies any associated fever, chills, headache, neck pain, chest pain, shortness of breath, abdominal pain, nausea, vomiting, diarrhea, constipation, hematemesis, hematochezia, melena, or urinary symptoms. Sexually active with a female monogamous partner. No penile discharge or drainage noted. History provided by: Patient Patient History History reviewed. No pertinent past medical history. History reviewed. No pertinent surgical history. No family history on file. Social History Tobacco Use Smoking status: Unknown Smokeless tobacco: Not on file Substance Use Topics Alcohol use: Not on file Drug use: Not on file Physical Exam Constitutional: Appearance: Normal appearance. HENT: Head: Normocephalic. Right Ear: External ear normal. Left Ear: External ear normal. Nose: Nose normal. Mouth/Throat: Mouth: Mucous membranes are moist. Pharynx: Oropharynx is clear. No oropharyngeal exudate or posterior oropharyngeal erythema. Eyes: Conjunctiva/sclera: Conjunctivae normal. Pupils: Pupils are equal, round, and reactive to light. Cardiovascular: Rate and Rhythm: Normal rate and regular rhythm. Pulses: Radial pulses are 3+ on the right side and 3+ on the left side. Dorsalis pedis pulses are 3+ on the right side and 3+ on the left side. Heart sounds: Normal heart sounds. No murmur heard. No friction rub. No gallop. Pulmonary: Effort: Pulmonary effort is normal. No respiratory distress. Breath sounds: Normal breath sounds. No wheezing, rhonchi or rales. Abdominal: General: Abdomen is flat. Bowel sounds are normal. Palpations: Abdomen is soft. Tenderness: There is no abdominal tenderness. There is no right CVA tenderness, left CVA tenderness, guarding or rebound. Negative signs include Hart's sign and McBurney's sign. Genitourinary: Comments: Normal appearing external genitalia. No condylomata wart, herpetic vesicle, or syphiliticchancre. No penile discharge noted. Testicles have normal lie. Cremasteric reflex is intact bilaterally. No masses or lesions noted. Musculoskeletal: General: No swelling or deformity. Cervical back: Full passive range of motion without pain. Right lower leg: No edema. Left lower leg: No edema. Lymphadenopathy: Cervical: No cervical adenopathy. Skin: Capillary Refill: Capillary refill takes less than 2 seconds. Coloration: Skin is not jaundiced. Findings: No rash. Neurological: General: No focal deficit present. Mental Status: He is alert and oriented to person, place, and time. Mental status is at baseline. Gait: Gait is intact. Psychiatric: Mood and Affect: Mood normal. Behavior: Behavior is cooperative. Labs Reviewed URINALYSIS WITH REFLEX CULTURE AND MICROSCOPIC - Abnormal Result Value Color, Urine Light-Yellow Appearance, Urine Clear Specific [place], Urine 1.036 (*) pH, Urine 5.0 Protein, Urine 30 (1+) (*) Glucose, Urine OVER (4+) (*) Blood, Urine NEGATIVE Ketones, Urine OVER (4+) (*) Bilirubin, Urine NEGATIVE Urobilinogen, Urine Normal Nitrite, Urine NEGATIVE Leukocyte Esterase, Urine NEGATIVE Narrative: OVER is reported when the result is greater than the clinically reportable range. CBC WITH AUTO DIFFERENTIAL - Abnormal WBC 10.8 nRBC 0.0 RBC 4.35 (*) Hemoglobin 14.7 Hematocrit 42.5 MCV 98 MCH 33.8 MCHC 34.6 RDW 11.8 Platelets 180 Neutrophils % 75.2 Immature Granulocytes %, Automated 0.7 Lymphocytes % 9.7 Monocytes % 13.9 Eosinophils % 0.1 Basophils % 0.4 Neutrophils Absolute 8.10 (*) Immature Granulocytes Absolute, Automated 0.08 Lymphocytes Absolute 1.04 (*) Monocytes Absolute 1.50 (*) Eosinophils Absolute 0.01 Basophils Absolute 0.04 COMPREHENSIVE METABOLIC PANEL - Abnormal Glucose 343 (*) Sodium 132 (*) Potassium 3.9 Chloride 100 Bicarbonate 7 (*) Anion Gap 29 (*) Urea Nitrogen 11 Creatinine 0.91 eGFR >90 Calcium 9.3 Albumin 4.4 Alkaline Phosphatase 124 (*) Total Protein 7.5 AST 8 (*) Bilirubin, Total 1.1 ALT 11 SEDIMENTATION RATE, AUTOMATED - Abnormal Sedimentation Rate 28 (*) C-REACTIVE PROTEIN - Abnormal C-Reactive Protein 19.07 (*) BETA HYDROXYBUTYRATE - Abnormal Beta-Hydroxybutyrate 10.42 (*) Narrative: The beta-hydroxybutyrate test performance characteristics have been validated by [facility]. This test has not been approved by the FDA; however,such approval is not necessary. BLOOD GAS VENOUS FULL PANEL - Abnormal POCT pH, Venous 7.10 (*) POCT pCO2, Venous 17 (*) POCT pO2, Venous 60 (*) POCT SO2, Venous 89 (*) POCT Oxy Hemoglobin, Venous 86.9 (*) POCT Hematocrit Calculated, Venous 42.0 POCT Sodium, Venous 132 (*) POCT Potassium, Venous 3.8 POCT Chloride, Venous 104 POCT Ionized Calicum, Venous 1.27 POCT Glucose, Venous 329 (*) POCT Lactate, Venous 0.8 POCT Base Excess, Venous -22.4 (*) POCT HCO3 Calculated, Venous 5.3 (*) POCT Hemoglobin, Venous 14.1 POCT Anion Gap, Venous 27.0 (*) Patient Temperature 37.0 FiO2 21 BASIC METABOLIC PANEL - Abnormal Glucose 233 (*) Sodium 135 (*) Potassium 3.2 (*) Chloride 108 (*) Bicarbonate 8 (*) Anion Gap 22 (*) Urea Nitrogen 10 Creatinine 0.81 eGFR >90 Calcium 8.0 (*) BLOOD GAS VENOUS - Abnormal POCT pH, Venous 7.13 (*) POCT pCO2, Venous 23 (*) POCT pO2, Venous 32 (*) POCT SO2, Venous 51 POCT Oxy Hemoglobin, Venous 50.1 POCT Base Excess, Venous -19.8 (*) POCT HCO3 Calculated, Venous 7.7 (*) Patient Temperature 37.0 FiO2 21 BLOOD GAS VENOUS FULL PANEL - Abnormal POCT pH, Venous 7.16 (*) POCT pCO2, Venous 28 (*) POCT pO2, Venous 26 (*) POCT SO2, Venous 43 (*) POCT Oxy Hemoglobin, Venous 42.5 (*) POCT Hematocrit Calculated, Venous 40.0 (*) POCT Sodium, Venous 133 (*) POCT Potassium, Venous 3.3 (*) POCT Chloride, Venous 106 POCT Ionized Calicum, Venous 1.31 POCT Glucose, Venous 206 (*) POCT Lactate, Venous 0.9 POCT Base Excess, Venous -17.3 (*) POCT HCO3 Calculated, Venous 10.0 (*) POCT Hemoglobin, Venous 13.2 (*) POCT Anion Gap, Venous 20.0 Patient Temperature 37.0 FiO2 21 POCT GLUCOSE - Abnormal POCT Glucose 293 (*) POCT GLUCOSE - Abnormal POCT Glucose 278 (*) POCT GLUCOSE - Abnormal POCT Glucose 269 (*) POCT GLUCOSE - Abnormal POCT Glucose 218 (*) LACTATE - Normal Lactate 0.8 Narrative: Venipuncture immediately after or during the administration of Metamizole may lead to falsely low results. Testing should be performed immediately prior to Metamizole dosing. MAGNESIUM - Normal Magnesium 1.83 PHOSPHORUS - Normal Phosphorus 2.9 CREATINE KINASE - Normal Creatine Kinase 66 URINALYSIS WITH REFLEX CULTURE AND MICROSCOPIC Narrative: The following orders were created for panel order Urinalysis with Reflex Culture and Microscopic. Procedure Abnormality Status --------- ------ Urinalysis with Reflex C...[[id number]] Abnormal Final result Extra Urine Varma Tube[[id number]] In process Please view results for these tests on the individual orders. EXTRA URINE VARMA TUBE BASIC METABOLIC PANEL BASIC METABOLIC PANEL POCT GLUCOSE METER POCT GLUCOSE METER POCT GLUCOSE METER POCT GLUCOSE METER POCT GLUCOSE METER POCT GLUCOSE METER POCT GLUCOSE METER POCT GLUCOSE METER POCT GLUCOSE METER POCT GLUCOSE METER POCT GLUCOSE METER POCT GLUCOSE METER POCT GLUCOSE METER POCT GLUCOSE METER POCT GLUCOSE METER POCT GLUCOSE METER POCT GLUCOSE METER POCT GLUCOSE METER POCT GLUCOSE METER POCT GLUCOSE METER POCT GLUCOSE METER POCT GLUCOSE METER POCT GLUCOSE METER POCT GLUCOSE METER URINALYSIS MICROSCOPIC WITH REFLEX CULTURE WBC, Urine 1-5 RBC, Urine 1-2 Mucus, Urine FEW CT abdomen pelvis w IV contrast Final Result IV contrast on the present exam could potentially obscure a muscular hematoma but there was no acute hematoma in the right iliacus muscle earlier today The present CT with contrast does not reveal a walled-off abscess in the right iliacus or anywhere else Otherwise, the remains uncertain the exact etiology of the right iliacus muscle edematous enlargement No new or newly evident acute findings with IV contrast As was the case earlier today, I suspect at least a demonstrable normal caliber proximal appendix against the back wall of the cecum but it is difficult to identify the mid and distal appendix. No calcified appendicolith No acute pancreatitis, hydronephrosis/urinary stone or any other acute solid organ findings No gallbladder or biliary duct dilation No perforation or abscess, only trace unchanged abnormal free pelvic fluid MACRO: None Signed by: Imtiaz Aly 08/03/2024 2:40 PM Dictation workstation: [id number] US scrotum w doppler Final Result Unremarkable scrotal ultrasound. Normal testicular spectral doppler evaluation. Signed by Sylvie Yin MD CT abdomen pelvis wo IV contrast Final Result 1. Asymmetric enlargement of the right iliacus muscle measuring up to 3.8 cm in thickness with the left measuring 2.5 cm. There is also mild haziness surrounding the right iliacus muscle and distal aspect of the iliopsoas muscle. Findings may be secondary to a hematoma or possible infection. Correlate with infectious symptoms. Consider further evaluation with contrast-enhanced CT or contrast-enhanced MRI. 2. Mild diffuse urinary bladder wall thickening. Correlate with urinalysis for possible cystitis. 3. Moderate to large stool volume. 4. Multiple noncalcified nodules in the lung bases measuring up to 7 mm laterally in the left lower lobe. Fleischner Society 2017 Guidelines for Management of Incidentally Detected Pulmonary Nodules in Adults: A. SOLID NODULES* Nodule Type and Size: Single: *Low Risk < 6 mm - No routine follow-up 6-8 mm - CT at 6-12 months, then consider CT at 18-24 months > 8 mm - Consider CT at 3 months, PET/CT, or tissue sampling *High Risk < 6 mm - Optional CT at 12 months 6-8 mm - CT at 6-12 months, then CT at 18-24 months > 8 mm - Consider CT at 3 months, PET/CT, or tissue sampling Multiple: *Low Risk < 6 mm - No routine follow-up 6-8 mm - CT at 3-6 months, then consider CT at 18-24 months > 8 mm - CT at 3-6 months, then consider CT at 18-24 months *High Risk < 6 mm - Optional CT at 12 months 6-8 mm - CT at 3-6 months, then at 18-24 months > 8 mm - CT at 3-6 months, then at 18-24 months B. SUBSOLID NODULES* Nodule Type and Size: Single: *Ground glass < 6 mm - No routine follow-up > 6 mm - CT at 6-12 months to confirm persistence, then CT every 2 years until 5 years *Part Solid < 6 mm - No routine follow-up > 6 mm - CT at 3-6 months to confirm persistence. If unchanged and solid component remains < 6 mm, annual CT should be performed for 5 years. Multiple: < 6 mm - CT at 3-6 months. If stable, consider CT at 2 and 4 years. > 6 mm - CT at 3-6 months. Subsequent management based on the most suspicious nodule(s). Note - These recommendations do not apply to lung cancer screening, patients with immunosuppression, or patients with known primary cancer. * Dimensions are average of long and short axes, rounded to the nearest millimeter. Consider all relevant risk factors. Signed by Satya Campo MD ED Course & [facility] ED Course as of 08/03/24 1525 Sun Aug 03, [address] scan findings. Patient is diabetic so he is at increased risk of infection. Labs ordered to further evaluate for such. Had ketones in his urine. Therefore, he was given 1 Liter of NS. [JZ] 1212 Reviewed labs and he is noted to be in DKA. Getting a room for him in the treatment area. Additional labs added. Given IV fluids and started on an insulin drip. [JZ] [address] Sinha, geriatric social work professor, who agrees to see the patient on consult in the ICU. [JZ] ED Course User Index [JZ] Lakesha Mendoza APRN-[facility] Diagnoses as of 08/03/24 1525 DKA, type 1, not at goal Right inguinal pain Medical Decision Making Patient was seen and evaluated by Dr. Dinero. Originally given an injection of Toradol with improvement in his pain. Urinalysis showed no signs of infection, but did show large ketones. US of his scrotum showed unremarkable scrotal ultrasound with normal testicular spectral doppler evaluation. CTscan of his abdomen and pelvis without contrast shows asymmetric enlargement of the right iliacus muscle measuring up to 3.8 cm in thickness with the left measuring 2.5 cm; mild haziness surrounding the right iliacus muscle and distal aspect of the iliopsoas muscle- findings may be secondary to a hematoma or possible infection; mild diffuse urinary bladder wall thickening- no clinical signs of cystitis; moderate to large stool volume; and multiple noncalcified nodules in the lung bases measuring up to 7 mm laterally in the left lower lobe. With the possibility of infection and ketones noted in his urine, further work up was initiated. Placed on a potline monitor which showed normal sinus rhythm without ectopy throughout ED stay. Rhythm strip obtained showed normal sinus rhythm. Impression: No acute pathology. Continuous pulse oximetry monitoring showed no signs of hypoxia. Saline lock was established with labs drawn and results as above. Venous blood gas shows pH of 7.10, CO2- 17, andHCO3 of 5.3. Beta- hydroxybutrate of 10.42. Glucose of 343, bicarbonate of 7 with anion gap of 29. Noted to have elevated inflammatory markers as well. Blood counts, remainder of electrolytes, kidney function, liver function, CK, and lactate were unremarkable. Given 2 Liters of normal saline wide open over 2 hours. Placed on an insulin drip to treat his DKA. After receiving the medications and IV fluids, his blood sugar was improving. DKA protocol was administered with hourly accuchecks and repeat labs as directed. Discussed the case with geriatric social work professor who agrees to see the patient on consult. Case was discussed with Joseph Dean CNP, [facility], who agrees to place the patient under 23 hour observation for further evaluation and care. Will be transferred to the ICU in guarded condition. Diagnostic Impression: 1. Acute DKA 2. Acute right groin pain 3. IM injection 4. IV meds and fluids in ED 5. Critical care time 45 minutes Your medication list ASK your doctor about these medications Instructions Last Dose Given Next Dose Due insulin lispro 100 unit/mL injection Procedure Critical Care Performed by: JUWAN Casey Authorized by: Faby Dinero MD Critical care provider statement: Critical care time (minutes): 45 Critical care time was exclusive of: Separately billable procedures and treating other patients Critical care was necessary to treat or prevent imminent or life-threatening deterioration of the following conditions: Endocrine crisis Critical care was time spent personally by me on the following activities: Blood draw for specimens, development of treatment plan with patient or surrogate, discussions with consultants, evaluation of patient's response to treatment, obtaining history from patient or surrogate, re-evaluation of patient's condition, pulse oximetry, ordering and review of radiographic studies, ordering and review of laboratory studies and ordering and performing treatments and interventions JUWAN Casey 08/03/24 1525 Cosigned by Faby Dinero MD at 08/03/2024 7:51 PM EST Associated attestation - Faby Dinero MD - 08/03/2024 7:51 PM EST I was present during all critical and barkley portions of the procedure(s) and immediately available [facility] services the entire duration. See resident note for details. This patient was seen by the advanced practice provider. I have personally performed a substantive portion of the encounter. I have seen and examined the patient; agree with the workup, evaluation, MDM, management and diagnosis. The care plan has been discussed. I personally saw the patient and made/approved the management plan and take responsibility for the patient management. History: Patient presents emergency department secondary to right groin pain. This has been presentfor the past 3 to 4 days. No fever or chills. No nausea or vomiting or diarrhea. No constipation orhematemesis. No other symptoms at this time. Exam: Patient is afebrile and stable. Patient does smell of ketones in the room. Heart rate is regular. Lungs are clear to auscultation. Abdomen is soft and nontender. Extremities are nontender with no edema. MDM: Laboratory workup was performed and this shows evidence of diabetic ketoacidosis. Patient was started on IV fluids and an insulin drip. CT scan does show inflammation of pelvic muscle. CPK is within normal limits. Patient is treated for pain. At this time patient requires admission to the hospital to the ICU for management of diabetic ketoacidosis. Patient is discussed with the geriatric social work professor and also with the [facility] physician for admission. [facility] Work Phone: 1(417) 784-150201-23-2025 Evaluation note* Diagnosis Onset Date Resolution Status Admit Date BMI 22.0-22.9, adult acute Hans napoleon2024 2:57pm Dietary counseling and surveillance acute July 31 2:57pm Insulin long-term use acute Jul 2:57pm Type 1 diabetes mellitus acute July 31, 2024 2:57pm [facility] Work Phone: 1(112) 739-745601-23-2025 Evaluation note* Diagnosis Onset Date Resolution Status Admit Date BMI 22.0-22.9, adult acute Hans americus 2024 2:57pm Dietary counseling and surveillance acute July 31 2:57pm Insulin long-term use acute Jul 2:57pm Type 1 diabetes mellitus acute July 31, 2024 2:57pm Abscess of right iliac fossa acute August 14, 2024 10:00pm Intractable pain acute August 14, 2024 10:00pm Sepsis acute August 14, 2024 10:00pm Type 1 diabetes mellitus acute August 14, 2024 10:00pm Acute leg pain inactive August 142024 10:00pm [facility] Work Phone: 1(301) 627-289301-23-2025 Evaluation note* Diagnosis Onset Date Resolution Status Admit Date BMI 22.0-22.9, adult acute Hans americus 2024 2:57pm Dietary counseling and surveillance acute July 31 2:57pm Insulin long-term use acute Lito gutierrez 2024 2:57pm Type 1 diabetes mellitus resolved July 31, 2024 2:57pm Abscess of right iliac fossa resolve d August 14, 2024 10:00pm Intractable pain resolved August 14, 2024 10:00pm Sepsis resolved August 14, 2024 10:00pm Type 1 diabetes mellitus resolved August 14, 2024 10:00pm Acute leg pain inactive August 142024 10:00pm [facility] Work Phone: 1(166) 762-259609-18-2024 History of Present illness Narrative* Ragini Navarro, [employer] MA[employer]GER - 03/26/2024 4:20 PM EDT Images from the original note were not included. Subjective Patient ID: Isaias Estrella is a 23 y.o. male. They present today with a chief complaint of Finger Pain (Possible infected finger /Left middle finger /Noticed 2 days ago ). History of Present Illness HPI Pt presents to urgent care with c/o pain, redness, swelling to L middle finger x 2 days. Pt states his tape measure accidentally caused a small cut on his finger a few days ago. States it developed ablood blister which he popped. States swelling seemed a little worse today and since he is diabetic, he came to the for further evaluation. Denies drainage. Pt denies CP, SOB, palpitations, fevers, abd pain, n/v/d, sick contacts, recent travel. Past Medical History Allergies as of 03/26/2024 (No Known Allergies) (Not in a hospital admission) No past medical history on file. No past surgical history on file. Review of Systems Review of Systems Constitutional: Negative. HENT: Negative. Eyes: Negative. Respiratory: Negative. Cardiovascular: Negative for chest pain and palpitations. Gastrointestinal: Negative. Endocrine: Negative. Genitourinary: Negative. Musculoskeletal: Negative. Skin: Negative. Allergic/Immunologic: Negative. Neurological: Negative. Hematological: Negative. Psychiatric/Behavioral: Negative. All other systems reviewed and are negative. Objective Vitals: 03/26/24 1615 BP: 120/77 BP Location: Right arm Patient Position: Sitting BP Cuff Size: Adult Pulse: 91 Resp: 16 Temp: 36.7 C (98 F) SpO2: 98% Weight: 65.8 kg (145 lb) Height: 1.829 m (6') No LMP for male patient. Physical Exam Vitals and nursing note reviewed. Constitutional: General: He is not in acute distress. Appearance: Normal appearance. He is not ill-appearing or toxic-appearing. HENT: Head: Atraumatic. Right Ear: Tympanic membrane, ear canal and external ear normal. Left Ear: Tympanic membrane, ear canal and external ear normal. Nose: Nose normal. Mouth/Throat: Mouth: Mucous membranes are moist. Pharynx: Oropharynx is clear. No oropharyngeal exudate or posterior oropharyngeal erythema. Eyes: Extraocular Movements: Extraocular movements intact. Conjunctiva/sclera: Conjunctivae normal. Pupils: Pupils are equal, round, and reactive to light. Cardiovascular: Rate and Rhythm: Normal rate and regular rhythm. Pulses: Normal pulses. Heart sounds: Normal heart sounds. Pulmonary: Effort: Pulmonary effort is normal. Breath sounds: Normal breath sounds. Abdominal: General: Abdomen is flat. Bowel sounds are normal. Palpations: Abdomen is soft. Tenderness: There is no abdominal tenderness. Musculoskeletal: General: Normal range of motion. Hands: Cervical back: Normal range of motion and neck supple. No tenderness. Skin: General: Skin is warm and dry. Capillary Refill: Capillary refill takes less than 2 seconds. Neurological: General: No focal deficit present. Mental Status: He is alert and oriented to person, place, and time. Psychiatric: Mood and Affect: Mood normal. Behavior: Behavior normal. Thought Content: Thought content normal. Procedures Point of Care Test & Imaging Results from this visit No results found for this visit on 03/26/24. No results found. Diagnostic study results (if any) were reviewed by [facility]. Assessment/Plan Allergies, medications, history, and pertinent labs/EKGs/Imaging reviewed by JUWAN Flores. Medical Decision Making Pt presents with redness, swelling to L middle finger x 2-3 days s/p injury and small superficial cut. Reports tetanus is UTD. Pt with moderate swelling noted to PIP joint of middle finger. ROM intact. Extension and flexion intact. Pt with brisk cap refill and intact pulses. Suspect superficial cellulitis as cause of pt's symptoms. Will start pt on keflex, prednisone. Advised to monitor blood sugars closely, follow up with PCP At time of discharge patient was clinically well-appearing and HDS for outpatient management. The patient and/or family was educated regarding diagnosis, supportive care, OTC and Rx medications. The patient and/or family was given the opportunity to ask questions prior to discharge. They verbalized understanding of my discussion of the plans for treatment, expected course, indications to return to or seek further evaluation in ED, and the need for timely follow up as directed. They were provided with a work/school excuse if requested. Orders and Diagnoses Diagnoses and all orders for this visit: Cellulitis of finger of left hand - cephalexin (Keflex) 500 mg capsule; Take 1 capsule (500 mg) by mouth 4 times a day for 7 days. - predniSONE (Deltasone) 20 mg tablet; Take 1 tablet (20 mg) by mouth once daily for 5 days. Medical Admin Record Patient disposition: Home Electronically signed by [facility] 4:37 PM documented [facility] Work Phone: 1(996) 335-262906-25-2024 Miscellaneous Notes* Telephone Encounter - Delia Edwards RN - 01/01/2024 2:10 PM EDT 3 month follow up, no answer, lvm to call back with any questions . [facility] [id number] Telephone encounter Note* Telephone Encounter - Delia Edwards RN - 01/01/2024 2:10 PM EDT 3 month follow up, no answer, lvm to call back with any questions . [facility] [id number] Miscellaneous Notes* Telephone Encounter - Delia Edwards RN - 12/13/2023 9:41 AM EDT 3 month f/u, no answer, lvm to call with any questions [facility] Tele[facility] encounter Note* Telephone Encounter - Delia Edwards RN - 12/13/2023 9:41 AM EDT 3 month f/u, no answer, lvm to call with any questions [facility]05-01-2024 Miscellaneous Notes* Telephone Encounter - Sukh Valdes - 11/07/2023 3:57 PM EDT Patient needs humalog pen and semglee sent to [facility] on [address]. Pended. documented in this encounterBl[facility]05-[facility]-2024 Telephone encounter Note* Telephone Encounter - Sukh Valdes - 11/07/2023 3:57 PM EDT Patient needs humalog pen and semglee sent to [facility] on [address]. Pended. [facility]04-03-2024 Miscellaneous Notes* Telephone Encounter - Annika Brooks - 10/10/2023 2:09 PM EDT Ok to sign and send documented in this encounterBluffton Hospital04-03-2024 Telephone encounter Note* Telephone Encounter - Annika Brooks - 10/10/2023 2:09 PM EDT Ok to sign and send [facility]04-03-2024 Miscellaneous Notes* Telephone Encounter - Mony Gutierrez RN - 10/10/2023 2:05 PM EDT I saw him in education 09/26/23 and got him into one of your [place] spots. Thank you! I was very concerned about him. I gave him a meter as a back-up if sensor fails. Can you send pended scripts for strips and lancets. Thanks, Stephanie * Telephone Encounter - Natalie Cai MD - 10/10/2023 2:05 PM EDT Thank you. Done. documented in this encounterBluff[facility] Hospital04-03-2024 Telephone encounter Note* Telephone Encounter - Mony Gutierrez RN - 10/10/2023 2:05 PM EDT I saw him in education 09/26/23 and got him into one of your [place] spots. Thank you! I was very concerned about him. I gave him a meter as a back-up if sensor fails. Can you send pended scripts for strips and lancets. Thanks, Stephanie [facility]04-03-2024 Telephone encounter Note* Telephone Encounter - Natalie Cai MD - 10/10/2023 2:05 PM EDT Thank you. Done. [facility]04-03-2024 Miscellaneous Notes* Telephone Encounter - Sukh Valdes - 10/10/2023 1:07 PM EDT Scale teaching done with patient. documented in this encounterBluffton Hospital04-03-2024 Telephone encounter Note* Telephone Encounter - Sukh Valdes - 10/10/2023 1:07 PM EDT Scale teaching done with patient. [facility]04-03-2024 Miscellaneous Notes* Telephone Encounter - Karen Montague - 10/10/2023 12:42 PM EDT ----- Message from Natalie Cai MD sent at 10/10/2023 12:37 PM EDT ----- Stephanie 3 Rx please. * Telephone Encounter - Karen Montague - 10/10/2023 12:42 PM EDT Script pended. documented in this encounterBluff[facility] Hospital04-03-2024 Telephone encounter Note* Telephone Encounter - Karen Montague - 10/10/2023 12:42 PM EDT ----- Message from Natalie Cai MD sent at 10/10/2023 12:37 PM EDT ----- Stephanie 3 Rx please. [facility] [facility] Telephone encounter Note* Telephone Encounter - Karen Montague - 10/10/2023 12:42 PM EDT Script pended. [facility]04-03-2024 History of Present illness Narrative* Natalie Cai MD - 10/10/2023 12:00 PM EDT Images from the original note were not included. REASON FOR VISIT: Isaias Estrella returns today for consult of his diabetes. Duration of diabetes- 06/2023 Circumstances of diagnosis- weight loss and shortness of breath, repeat admission with DKA in September2023 Previous treatment- basal insulin twice daily, not taking mealtime insulin Current treatment- Lantus 15 units b.i.d. Complications- DKA September 2023 Self-monitoring of blood sugars- Stephanie sensor Compliance to diet- not consistent Compliance to exercise -active lifestyle Last diabetes education- ordered Patient denies any symptoms suggestive of hypothyroidism . Patient denies any family history of thyroid cancer. Patient denies any exposure to radiation. Patient denies any family history of multipleendocrine neoplasia. Patient denies any neck pain or hoarseness or difficulty swallowing suggestiveof mechanical symptoms of multinodular goiter. Baseline is 210 lbs before diabetes 29 lbs up since on insulin Wt Readings from Last 3 Encounters: 10/10/23 76.9 kg (169 lb 9.6 oz) 09/26/23 77.1 kg (170 lb) 09/13/23 63.8 kg (140 lb 9.6 oz) Temp Readings from Last 3 Encounters: 09/15/23 36.4 C (97.5 F) (Oral) 07/10/23 36.1 C (97 F) (Oral) 03/25/21 36.8 C (98.3 F) (Oral) BP Readings from Last 3 Encounters: 10/10/23 111/73 09/15/23 113/60 07/10/23 122/72 Pulse Readings from Last 3 Encounters: 10/10/23 79 09/15/23 69 07/10/23 73 Lab Results Component Value Date [id number] 13.2 (A) 10/10/2023 Lab Results Component Value Date TSH 0.63 07/08/2023 T4 1.13 07/08/2023 CREATININE 0.50 (L) 09/15/2023 Lab Results Component Value Date [id number] 13.2 (A) 10/10/2023 GLU 164 (H) 09/15/2023 GLU 209 (H) 09/15/2023 GLU 198 (H) 09/15/2023 No results found for: ALBCREATRA Lab Results Component Value Date LABINSU 6.52 07/09/2023 Past Medical History: Diagnosis Date Diabetes mellitus ([facility]) History reviewed. No pertinent surgical history. Current Outpatient Medications: flash glucose scanning reader (FREESTYLE STEPHANIE 14 DAY READER) [facility] [place], Use to check blood glucose at least 4 times daily., Disp: 1 each, Rfl: 0 flash glucose sensor (FREESTYLE STEPHANIE 14 DAY SENSOR) kit, Use to check blood glucose at least 4 times daily. Change every 14 days., Disp: 6 kit, Rfl: 3 insulin glargine (LANTUS, SEMGLEE) 100 unit/mL (3 mL) insulin pen, Inject 15 Units under the skin in the morning and 15 Units before bedtime., Disp: 15 mL, Rfl: 12 insulin lispro (HumaLOG) 100 unit/mL injection, 5+ scale with meals, upto 30 units per day in divided doses., Disp: 10 mL, Rfl: 3 pen needle, diabetic (BD LAINA 2ND GEN PEN NEEDLE) 32 gauge x 5/32 needle, 1 each by miscellaneous route 5 (five) times a day., Disp: 500 each, Rfl: 3 Allergies, social history and family history were reviewed and updated in this chart. REVIEW OF SYSTEMS: 10-point ROS is negative, unless otherwise documented in HPI. PHYSICAL EXAM: Wt Readings from Last 3 Encounters: 10/10/23 76.9 kg (169 lb 9.6 oz) 09/26/23 77.1 kg (170 lb) 09/13/23 63.8 kg (140 lb 9.6 oz) Body mass index is 23 kg/m . Vitals: 10/10/23 1207 BP: 111/73 Pulse: 79 Weight: 76.9 kg (169 lb 9.6 oz) Physical Exam Constitutional: General: Not in acute distress. Eyes: General: No scleral icterus. Extraocular Movements: Extraocular movements intact. Pupils: Pupils are equal, round, and reactive to light. Neck: Comments: NO thyroid masses Cardiovascular: Rate and Rhythm: Normal rate and regular rhythm. Pulmonary: Breath sounds: Normal breath sounds. Abdominal: General: Bowel sounds are normal. There is no distension. Palpations: Abdomen is soft. Tenderness: There is no abdominal tenderness. Musculoskeletal: General: No swelling. Lymphadenopathy: Cervical: No cervical adenopathy. Skin: General: Skin is warm and dry. Neurological: General: No focal deficit present. Mental Status: alert. Psychiatric: Mood and Affect: Mood normal. Diabetic foot exam: Visual exam was normal without lesions. Left: Pulses Dorsalis Pedis: present Vibratory sensation normal Filament test present Right: Pulses Dorsalis Pedis: present Vibratory sensation normal Filament test present LABS: This SmartLink has not been configured with any valid records. ASSESSMENT: Isaias Estrella has uncontrolledType 1 Diabetes with complications of worsening and hyperglycemia 1. Type I diabetes mellitus with hyperosmolarity, uncontrolled ([facility]) - Ambulatory referral to Endocrinology (Non[facility]) - POCT Hemoglobin A1c - [facility] - [place], [place]; Future - insulin lispro (HumaLOG) 100 unit/mL injection; 5+ scale with meals, upto 30 units per day in divided doses. Dispense: 10 mL; Refill: 3 - pen needle, diabetic (BD LAINA 2ND GEN PEN NEEDLE) 32 gauge x 5/32 needle; 1 each by miscellaneous route 5 (five) times a day. Dispense: 500 each; Refill: 3 - Lipid profile; Future - Comprehensive metabolic panel; Future - Microalbumin - Albumin: Creatinine Urine Ratio; Future - TSH; Future Lab Results Component Value Date TSH 0.63 07/08/2023 T4 1.13 07/08/2023 CREATININE 0.50 (L) 09/15/2023 Lab Results Component Value Date [id number] 13.2 (A) 10/10/2023 GLU 164 (H) 09/15/2023 GLU 209 (H) 09/15/2023 GLU 198 (H) 09/15/2023 Wt Readings from Last 3 Encounters: 10/10/23 76.9 kg (169 lb 9.6 oz) 09/26/23 77.1 kg (170 lb) 09/13/23 63.8 kg (140 lb 9.6 oz) Body mass index is 23 kg/m . Vitals: 10/10/23 1207 BP: 111/73 Pulse: 79 Weight: 76.9 kg (169 lb 9.6 oz) 5+ scale With meals MEALS: Blood Glucose Insulin < 150 No extra units of insulin 151-200 Give extra 1 unit 201-250 Give extra 2 units 251-300 Give extra 3 units 301-350 Give extra 4 units 351-400 Give extra 5 units >400 Give extra 6 units CC'd Chart Routing History Routing History From: Natalie Cai MD On: 10/10/2023 12:37 PM To: Karen Montague Priority: Routine Routing Comments: Stephanie 3 Rx please. MEDICAL DECISION MAKING- DIAGNOSIS, DATA, TREATMENT -multiple chronic conditions reviewed and addressed -tests, notes , imaging listed, annotated reviewed, ordered and interpreted -prescription management including review and refills done as needed More than 2 chronic illnesses addressed at this visit along with at least 1 prescription management. A1c elevation is associated with significant risk for the development and progression of retinal, neurological and renal complications that can lead to vision loss, amputation, and renal failure. Theneed for good glucose control to prevent complications is discussed. Ongoing diabetes education is recommended. If possible a minimum of 150 minutes of physical activity per week is encouraged. On going progressive weight loss is advised. The signs symptoms and treatment of hypoglycemia are understood by the patient. The individual should not drive if symptoms of hypoglycemia are precieved and if possible the blood glucose should be check before driving or participating in dangerous activity. A diabetes ID is recommended. Yearly dilated eye examination and yearly urine Microalbumin to cr ratio are advised. The blood pressure should be maintained under 130/80. The LDL less than 70 mg/dl or 50% or more reduction from baseline LDL for primary prevention atherosclerosis and < 55 mg/dL as secondary prevention. Aggressive blood pressure and lipid management as suggested by ADA 2023 guidelines. Daily examination of the feet for signs of injury and inspection of the shoes for foreign body or shoe deformity that could lead to foot injury. Lab test reviewed/ interpreted/ordered as needed. Diet modification advised. Multiple chronic conditions as listed [id number] diagnosis, management and prognosis. Answered patient's questions to satisfaction. This note was created with the assistance of a speech-recognition program. Although the intention is to generate a document that actually reflects the content of the visit, no guarantees can be provided that every mistake has been identified and corrected by editing. . Return to clinic: 1 month Natalie Cai MD, MPH, [facility] [address] [address] Dept: [phone] FAX: [phone] documented [facility] Instructions* Patient Instructions* Natalie Cai MD - 10/10/2023 12:00 PM EDT 5+ scale With meals MEALS: Blood Glucose Insulin < 150 No extra units of insulin 151-200 Give extra 1 unit 201-250 Give extra 2 units 251-300 Give extra 3 units 301-350 Give extra 4 units 351-400 Give extra 5 units >400 Give extra 6 units documented in this encounterBluffton [facility]03-20-2024 History of Present illness Narrative* Mony Gutierrez RN - 09/26/2023 3:30 PM EDT DIABETES SELF-MANAGEMENT THERAPY (DSMT) Date: 09/26/23 Start Time:154 End Time: 1644 Patient Isaias Estrella Age () 23 y.o. (2000) Sex male Accompanied by Reason for Visit: Chief Complaint Patient presents with DSMT - Individual Referring Provider: Assessment: Allergies: No Known Allergies Lab Results: A1c Lab Results Component Value Date HGBA1C 12.5 (H) 09/13/2023 HGBA1C 14.1 (H) 07/08/2023 No results found for: [id number] Kidney No results found for: ALBCREATRA No results found for: MICROALBUR , MICRAU Lipid Panel No results found for: CHOL No results found for: HDL No results found for: LDLCALC No results found for: TRIG No results found for: CHOLHDL Vitals: Wt Readings from Last 1 Encounters: 09/26/23 77.1 kg (170 lb) Ht Readings from Last 1 Encounters: 09/26/23 182.9 cm (6' 0.01 ) When was last Foot Exam: not done When was last Eye Exam: not done Pertinent Comments: Isaias Is a pleasant 23 year old with a recent diagnosis of diabetes. He was hospitalized at the end of June and his HGB A1C was 14.1%. He thought he had Type 2 diabetes because he has a strong family history of Type 2 diabetes and said his eating habits were bad. He has noPCP. He was hospitalized again earlier this month for DKA. At some point over these 3 months he wasstarted on metformin and semglee 15 u BID. He has positive insulin antibodies and his c-peptide is .20. He said nobody told him he has Type 1 diabetes. He has had no education so he was not taking the semglee some of the time, not knowing how vital it was that he get insulin. He is wearing a stephanie s ensor and his glucose readings are 400-500. He has also been restricting carbs to try and get his glucose levels lower. He was referred to [facility] End[facility]ology but his appointment was not till January. 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 I went over to the [facility] Endocrine practice and they were able to move his appointment to October 09. Until then I told himhe has to take the semglee as prescribed. He will need meal time insulin but until he is seen by a doctor the long-acting insulin should help lower his glucose some. He is not priming his insulin pen. He travels back and forth to [place] for work. Education initiated today and given current literature. Isaias was attentive and appeared interested in learning. Diagnosis: Type 1 diabetes Intervention: Patient was instructed on: Acute Complications Chronic Complications / Preventative Measures Diabetes Disease Process Medications: Injectable(s) Physical Activity How to read a food label Priming of insulin pen Monitoring & Evaluation: Goals Prime insulin pen prior to each use Carry a fast-acting carbohydrate for treatment of a low blood sugar Follow-Up Plan Follow up appointment with RLesly scheduled. Diabetes Self-Management Support Plan: Refer to BD book on diabetes Refer to web site: Taking Control Of Your Diabetes Department phone number provided for questions after session. Thank you for the referral! Mony Gutierrez RN, [facility] documented in [facility] encounterMer[facility] SystemEvaluation [facility]* Diagnosis Cellulitis of finger of left hand- Primary documented in this encounter [facility] Work Phone: Evaluation note* Diagnosis DKA, type 1, not at goal- Primary DKA, type 1, not at goal Right inguinal pain Abdominal pain, right lower quadrant documented in this encounter [facility] Work Phone: Evaluation note* Diagnosis Type I diabetes mellitus with hyperosmolarity, uncontrolled ([facility] Primary Type I (juvenile type) diabetes mellitus with hyperosmolarity, uncontrolled [facility]* Diagnosis Diabetes mellitus, new onset ([facility]) [facility]* Diagnosis Diabetes mellitus, new onset ([facility] Primary Type I diabetes mellitus with hyperosmolarity, uncontrolled ([facility]) Type I (juvenile type) diabetes mellitus with hyperosmolarity, uncontrolled [facility]* Diagnosis Type I diabetes mellitus with hyperosmolarity, uncontrolled ([facility])- Primary Type I (juvenile type) diabetes mellitus with hyperosmolarity, uncontrolled [facility]* Diagnosis Type I diabetes mellitus with hyperosmolarity, uncontrolled ([facility])- Primary Type I (juvenile type) diabetes mellitus with hyperosmolarity, uncontrolled [facility]* Diagnosis Type 1 diabetes mellitus with hyperglycemia ([facility])- Primary [facility]* Diagnosis 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 Heart murmur Undiagnosed cardiac murmurs Psoas abscess (HCC) Psoas muscle abscess Staphylococcus aureus infection Methicillin susceptible Staphylococcus aureus in conditions classified elsewhere and of unspecified site Iliacus abscess (HCC) Psoas muscle abscess Uncontrolled type 1 diabetes mellitus with hyperglycemia (HCC) Ambulatory dysfunction Tobacco dependence Tobacco use disorder Pulmonary nodules Other nonspecific abnormal finding of lung field Hyponatremia Hyposmolality and/or hyponatremia Anemia, normocytic normochromic Anemia, unspecified MSSA (methicillin susceptible Staphylococcus aureus) infection Methicillin susceptible Staphylococcus aureus in conditions classified elsewhere and of unspecified site Staphylococcus aureus infection Methicillin susceptible Staphylococcus aureus in conditions classified elsewhere and of unspecified site Psoas abscess (HCC) Psoas muscle abscess Thrombocytosis Essential thrombocythemia [facility] Diagnosis Onset Date Resolution Status Admit Date BMI 24.0-24.9, adult acute December 10, 2024 2:48pm Dietary counseling and surveillance acute December 10, 2024 2 :48pm Insulin long-term use acute Dec 2:48pm Type 1 diabetes mellitus acute December 10, 2024 2:48pm [facility] Work Phone: Hospital Discharge instructionsAmbulatory Orders* Referral to Diabetes Education Location: None Selected * Referral to Family Practice Location: None Selected [facility] Work Phone: Hospital Discharge instructions Additional Instructions Full code Maintain and routine care to [facility] Work Phone: Instructions* Attachments The following attachments cannot be sent through Care Everywhere. * Cellulitis and erysipelas (skin infections) (Eritrean) [facility] Work Phone: InstructionsNot on filedocumented in this encounter [facility] System[facility]ructionsNot on filedocumented in this encounter [facility] System[facility]ructionsNot on filedocumented in this encounter [facility] SystemInstructionsNot on filedocumented in this encounter [facility] SystemInstructionsNot on filedocumented in this encounter [facility] SystemInstructionsNot on filedocumented in this encounter [facility] SystemInstructionsNot on filedocumented in this encounter [facility] SystemInstructionsNot on filedocumented in this encounter [facility] SystemRemaurizio for referral (narrative)* Consultation (Routine) - Pending Review Specialty Diagnoses / Procedures Referred By Carlos cueto Referred To Contact Endocrinology, Diabetes & Metabolism Diagnoses Diabetes mellitus, new onset ([facility]) Natalie Cai MD [address] [place] [address] [facility] [address] [facility] [place] [address] Referral ID Status Reason Start Date Expiration Date Visits Requested Visits Authorized [id number] Pending Review Specialty Services Required 10/10/2023 10/09/2024 1 1 [facility] for referral (narrative)No reason for referral information availableFort [facility] Hospital Work Phone: Reason for visit Narrative* Auth/Cert Specialty Diagnoses / Procedures Referred By Contac t Referred To Contact Diagnoses Infected iliopsoas muscle w/ abscess Tong Champion MD [address] [place] [address] [facility] [employer] [address] [place] [address] Referral ID Status Reason Start Date Expiration Date Visits Re quested Visits Authorized [id number] 1 1 [employer] Summary Purpose Family History Relationship Condition Age at Onset Recorded Date/T lorenzo father Suicide Unknown Healthy adult Unknown Unknown mother Congestive heart failure Unknown Rheumatoid arthritis Unknown brother Healthy adult Unknown Advance Directives Documents on File Type Date Recorded Patient It Security Consulting Director Expl anation Advance Directives and Living Will Power of Replanter Latest Code Status on File Code Status Date Activated Date Inactivated Comments Full Code 03/10/2013 4:10 AM 03/11/2013 7:27 PM Documents on File Type Date Recorded Patient It Security Consulting Director Expl anation ACP-Advance Directive ACP-Power of Replanter Advance Directive Response Recorded Date/ Time Advance Directives No June 3:29pm Date Activated Date Inactivated Comments 08/03/2024 1:20 PM Question Answer Comments Plan of Care: Code Status Discussion Not Compl eted Decision Maker: Provider Rationale: Patient condition does not warra nt discussion Date Activated Date Inactivated Comments 09/14/2023 10:00 AM 09/15/2023 2:52 PM Date Activated Date Inactivated Comments 07/08/2023 9:23 PM 07/10/2023 5:15 PM Latest Code Status on File Code Status Date Activated Date Inactivated Comments Full Code 09/14/2023 10:00 AM 09/15/2023 2:52 PM Code Status History Code Status Date Activated Date Inactivated Comments Full Code 07/08/2023 9:23 PM 07/10/2023 5:15 PM Latest Code Status on File Code Status Date Activated Date Inactivated Comments Full Code 09/14/2023 10:00 AM 09/15/2023 2:52 PM Code Status History Code Status Date Activated Date Inactivated Comments Full Code 07/08/2023 9:23 PM 07/10/2023 5:15 PM Date Activated Date Inactivated Comments 08/21/2024 9:19 PM Date Activated Date Inactivated Comments 03/10/2013 4:10 AM 03/11/2013 7:27 PM Advance Directive Response Recorded Date/ Time Advance Directives No June 4:29pm Advance Directive Response Recorded Date/ Time Advance Directives No February 06 2:10pm Discharge Instructions * Instructions* Eliud Rubio, DO - 04/08/2019 Please make an appointment to follow up with your primary doctor and/or the specialist as we discussed. Take all medications as prescribed. Return to ER if condition worsens or you develop any new/concerning symptoms as we discussed. * Attachments The following attachments cannot be sent through Care Everywhere. * Puncture Wounds (Eritrean) documented in this encounter* Attachments The following attachments cannot be sent through Care Everywhere. * Uvulitis (Eritrean) documented in this encounter* Instructions* Satya West, DO - 03/23/2020 Take medications as prescribed Follow-up with family physician for reevaluation Return immediately if any worsening symptoms or any other concerns Tell us how we did visit: [email or web address] and let us know about your experience * Attachments The following attachments cannot be sent through Care Everywhere. * Chest Pain: Musculoskeletal (Eritrean) documented in this encounter* Instructions* Cynthia Arzola MD - 09/04/2020 Follow a mild diet. Use mouthwash to swish and spit 4 times a day. Return for difficulty breathing or swallowing, swelling, fever, or if worse in any way. Please understand that at this time there is no evidence for a more serious underlying process, butthat early in the process of an illness or injury, an emergency department workup can be falsely reassuring. You should contact your family doctor within the next 48 hours for a follow up appointment THANK YOU!!! From [facility] and [facility] On behalf of the Emergency Department staff at [facility], I would like to thank you for giving us the opportunity to address your health care needs and concerns. We hope that during your visit, our service was delivered in a professional and caring manner. Please keep [facility] in mind as we walk with you down the path to your own personal wellness. Please expect an automated text message or email from us so we can ask a few questions about your health and progress. Based on your answers, a clinician may call you back to offer help and instructions. Please understand that early in the process of an illness or injury, an emergency department workupcan be falsely reassuring. If you notice any worsening, changing or persistent symptoms please callyour family doctor or return to the ER immediately. Tell us how we did during your visit at [email or web address] and let us know about your experience * Attachments The following attachments cannot be sent through Care Everywhere. * Stomatitis (Eritrean) documented in this encounter Assessments Diagnosis Puncture wound of right foot, initial encounter- Primary Diagnosis Uvulitis Cellulitis and abscess of oral soft tissues Diagnosis Chest pain, unspecified type Diagnosis Stomatitis- Primary Stomatitis and mucositis, unspecified History of Present Illness * Renetta Britt RN - 09/18/2019 9:44 AM EDT Patient discharge to home; discharge instruction given; IV removed; Called Pharmacy to fill prescription; Discharge to home documented in this encounter Chief Complaint and Reason for Visit Chief Complaint Admit Date Omnipod 5 Training January 20, 2025 7:52 am Reason for Visit Admit Date BMI 24.0-24.9, adult December 10, 2024 2:48 pm Dietary counseling and surveillance December 10, 2024 2:48pm Insulin long-term use December 10, 2024 2:4 8pm Type 1 diabetes mellitus December 10, 2024 2:48pm Chief Complaint Admit Date Type 1 no provider July 31, 2024 2 :57pm Reason for Visit Admit Date BMI 22.0-22.9, adult July 31, 2024 2:57pm Dietary counseling and surveillance Hans bender 2024 2:57pm Insulin long-term use July 31, 2024 2:57pm Type 1 diabetes mellitus July 31, 2:57pm Chief Complaint Admit Date Type 1 no provider July 31, 2024 2 :57pm rt leg pain, can't walk August 08 7:25pm Chief Complaint Admit Date Type 1 no provider July 31, 2024 2 :57pm rt leg pain, can't walk August 08 7:25pm Iliac muscle abscess August 14, 2024 10:00pm Iliac muscle abscess August 15, 2024 9:04am Reason for Visit Admit Date BMI 22.0-22.9, adult July 31, 2024 2:57pm Dietary counseling and surveillance Hans bender 2024 2:57pm Insulin long-term use July 31, 2024 2:57pm Type 1 diabetes mellitus July 31 025 2:57pm Abscess of right iliac fossa August 10:00pm Intractable pain August 14, 2024 1 0:00pm Sepsis August 14, 2024 1 0:00pm Type 1 diabetes mellitus August 14 025 10:00pm Acute leg pain August 14, 2024 1 0:00pm Chief Complaint Admit Date Type 1 no provider July 31, 2024 2 :57pm rt leg pain, can't walk August 08 7:25pm Iliac muscle abscess August 14, 2024 10:00pm Iliac muscle abscess August 15, 2024 9:04am est care August 29, 2024 10:23am Chief Complaint Admit Date Omnipod 5 Training January 20, 2025 7:52 am Omnipod 5 DL February 03, 2025 2:53 pm Reason for Visit Admit Date BMI 24.0-24.9, adult December 10, 2024 2:48 pm Dietary counseling and surveillance December 10, 2024 2:48pm Insulin long-term use December 10, 2024 2:4 8pm Type 1 diabetes mellitus December 10, 2024 2:48pm Type 1 diabetes mellitus January 20, 2025 7:52am Chief Complaint Admit Date Omnipod 5 Training January 20, 2025 7:52 am Omnipod 5 DL February 03, 2025 2:53 pm Feet Pain February 16, 2025 3: 57pm Reason for Visit Admit Date BMI 24.0-24.9, adult December 10, 2024 2:48 pm Dietary counseling and surveillance December 10, 2024 2:48pm Insulin long-term use December 10, 2024 2:4 8pm Type 1 diabetes mellitus December 10, 2024 2:48pm Type 1 diabetes mellitus January 20, 2025 7:52am Insulin pump titration February 03, 2025 2 :53pm Type 1 diabetes mellitus February 03, 2025 2:53pm Plantar fasciitis February 16, 2025 3: 57pm Reason for Visit Admit Date Type 1 diabetes mellitus January 20, 2025 7:52am Insulin pump titration February 03, 2025 2 :53pm Type 1 diabetes mellitus February 03, 2025 2:53pm Plantar fasciitis February 16, 2025 3: 57pm BMI 24.0-24.9, adult March 18 4:30pm Dietary counseling and surveillance Mar 4:30pm Insulin long-term use March 18 4:30pm Insulin pump titration March 18 025 4:30pm Type 1 diabetes mellitus March 18, 2025 4:30pm Reason for Referral Specialty Diagnoses / Procedures Referred By Carlos cueto Referred To Contact Radiology Diagnoses Psoas abscess (HCC) Staphylococcus aureus infection Procedures CT PELVIS WO CONTRAST Additional Contrast? None Travon Henry MD [address], [address] [place] [address] Referral ID Status Reason Start Date Expiration Date Visits Re quested Visits Authorized [id number] Open 09/18/2024 09/18/2025 1 1 Additional Source Comments (unrecognized sect ion and content) No Status Records FoundNo Status Records FoundNo Status Records FoundNo Status Records FoundNo Status Records FoundNo Status Records FoundNo Status Records FoundNo Status Records Found INFORMATION SOURCE (unrecogn ized section and content) DATE CREATED AUTHOR 01/18/2019 [facility] DATE CREATED AUTHOR AUTHOR'S ORGANIZ ATION 03/23/2020 [facility] DATE CREATED AUTHOR AUTHOR'S ORGANIZ ATION 09/28/2023 [facility] DATE CREATED AUTHOR AUTHOR'S ORGANIZ ATION 2024 [facility] DATE CREATED AUTHOR AUTHOR'S ORGANIZ ATION 09/10/2024 [facility] DATE CREATED AUTHOR AUTHOR'S ORGANIZ ATION 09/13/2024 [facility] DATE CREATED AUTHOR AUTHOR'S ORGANIZ ATION 09/13/2024 [facility] DATE CREATED AUTHOR AUTHOR'S ORGANIZ ATION 09/28/2024 [facility] Reason for Visit (unrecogniz ed section and content) Reason Comments Foot Injury Reason Comments Pharyngitis Reason Comments Chest Pain intermittent for 5 w eeks, left chest pain dull , non-radiating. states pain increases with a deep breath. denies SOB. denies known injury. denies cardiac hx. denies n/v. pt is a smoker. Reason Comments Finger Pain Possible infected fi nger Left middle finger Noticed 2 days ago Reason Comments Groin Pain Reports pain in groi n region. And testicular pain- radiating down leg. Reports started evening. 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 Specialty Diagnoses / Procedures Referred By Cadeac t Referred To Contact Diagnoses Right inguinal pain DKA, type 1, not at goal Procedures INPATIENT Fu, Maureen Sharma MD [address] [place] [address], [address] [address] Phone: tel: fax: [address] [address] Phone: tel: Referral ID Status Reason Start Date Expiration Date Visits Re quested Visits Authorized [id number] 1 1 Reason Comments DSMT - Individual Specialty Diagnoses / Procedures Referred By Carlos t Referred To Contact Endocrinology, Diabetes & Metabolism Diagnoses Diabetes mellitus, new onset ([facility]) Clarissa Chavez MD [address], [address] [address] [facility] [address] [facility] [facility] [address] [place] [address] Referral ID Status Reason Start Date Expiration Date Visits Requested Visits Authorized [id number] Pending Review Specialty Services Required 09/17/2023 09/16/2024 1 1 Reason Comments Diabetes Specialty Diagnoses / Procedures Referred By Carlos t Referred To Contact Endocrinology Diagnoses Diabetes mellitus, new onset ([facility]) Clarissa Chavez MD [address], [address] [address] [facility] [address] [address] Referral ID Status Reason Start Date Expiration Date Visits Requested Visits Authorized [id number] Pending Review Specialty Services Required 09/14/2023 09/13/2024 1 1 Reason Onset Date Comments Med Refill 10/10/2023 Ordered Prescriptions (unrec ognized section and content) Prescription Sig Dispensed Refills Start Date End Da te Magic Mouthwash (MIRACLE MOUTHWASH) Swish and spit 5 mLs 4 times daily as needed for Irritation 30 milliliters (ml) of nystatin suspension at 100,000 units/ml, or 3 million units of nystatin powder. 60 milligrams hydrocortisone. enough diphenhydramine HCL syrup to bring the total volume up to 240 ml. 240 mL 0 09/04/2020 Prescription Sig Dispensed Refills Start Date End Da te lidocaine 4 % external patch Place 1 patch onto the skin daily 30 each 08/28/2024 09/27/2024 gabapentin (NEURONTIN) 300 MG capsule Take 1 capsule by mouth 3 times daily for 30 days. 90 capsule 08/27/2024 09/26/2024 cyclobenzaprine (FLEXERIL) 10 MG tablet Take 1 tablet by mouth 3 times daily for 10 days 30 tablet 08/27/2024 09/06/2024 oxyCODONE (ROXICODONE) 5 MG immediate release tabletIndications:Sta phylococcus aureus infection,Iliopsoas abscess (HCC) Take 1 tablet by mouth every 6 hours as needed for Pain for up to 7 days. Max Daily Amount: 20 mg 20 tablet 08/27/2024 09/03/2024 cefTRIAXone (ROCEPHIN) infusion Infuse 2,000 mg intravenously every 24 hours for 28 days Till 09/22 then stop and get a CT pel;vis for better eval of the R pelvic abscess resolution -this will help decide further AB - otherwise cbc diff creat LFT weekly - no line draws- ty 56 g 08/25/2024 09/22/2024 Care Teams (unrecognized sec tion and content) Team Status: Active Member Role Status Dates NON STAFF Primary Care Provider Active Team Status: Inactive Member Role Status Dates Edel De Los Santos APRN Attending Provider Active Start: July 31, 2024 End: July 31, 2024 NON STAFF Primary Care Provider Active Start: July 31, 2024 End: July 31, 2024 Team Status: Active Member Role Status Dates PHYSICIAN NO FAMILY Primary Care Provider Active Team Status: Inactive Member Role Status Dates PHYSICIAN NO FAMILY Primary Care Provider Active Start: August 08, 2024 End: August 09, 2024 Senia Fernandez PA-C Emergency Provider Active Start: August 08, 2024 End: August 09, 2024 Electric Motor Analyst Relationship Specialty Start Date End Date No Pcp, [place] [address] PCP - General Family Medicine 09/01/19 Team Status: Inactive Member Role Status Dates PHYSICIAN NO FAMILY Primary Care Provider Active Start: August 14, 2024 End: August 21, 2024 Georgia Burkett MD Admit Provider Active Sta rt: August 14, 2024 End: August 21, 2024 Jorge England MD Other Provider Active Start: August 14, 2024 End: August 21, 2024 Jhon Bhardwaj Jr, DO Other Provider Active Sta rt: August 14, 2024 End: August 21, 2024 Kanu Fry MD Attending Provider Active St art: August 14, 2024 End: August 21, 2024 Team Status: Active Member Role Status Dates PHYSICIAN NO FAMILY Primary Care Provider Active Start: August 15, 2024 Georgia Burkett MD Admit Provider Active Sta rt: August 15, 2024 Jorge England MD Attending Provider, Other Provider Active Start: August 15, 2024 Vicky Espino MD Other Provider Active Start: August 15, 2024 Jhon Bhardwaj Jr, DO Other Provider Active Sta rt: August 15, 2024 Electric Motor Analyst Relationship Specialty Start Date End Date No Pcp, [place] [address] PCP - General Family Medicine 09/01/19 Electric Motor Analyst Relationship Specialty Start Date End Date No Pcp, [place] [address] PCP - General Family Medicine 09/01/19 Electric Motor Analyst Relationship Specialty Start Date End Date No Pcp, [place] [address] PCP - General Family Medicine 09/01/19 Electric Motor Analyst Relationship Specialty Start Date End Date No Pcp, [place] [address] PCP - General Family Medicine 09/01/19 Electric Motor Analyst Relationship Specialty Start Date End Date No Pcp, [place] [address] PCP - General Family Medicine 09/01/19 Electric Motor Analyst Relationship Specialty Start Date End Date No Pcp, [place] [address] PCP - General Family Medicine 09/01/19 Electric Motor Analyst Relationship Specialty Start Date End Date No Pcp, [place] [address] PCP - General Family Medicine 09/01/19 Electric Motor Analyst Relationship Specialty Start Date End Date No Pcp, [place] [address] PCP - General Family Medicine 09/01/19 Electric Motor Analyst Relationship Specialty Start Date End Date Senia Fernandez PA-C [address] [facility] [place] [address] PCP - General Physician Chief Station Engineer 08/24/24 Team Status: Inactive Member Role Status Dates Machelle Woodward APRN MUSIC INSTRUCTOR-C Attending Provider Active Start: August End: August 29, 2024 PHYSICIAN NO FAMILY Primary Care Provider Active Start: August 29, 2024 End: August 29, 2024 Team Status: Active Member Role Status Dates Machelle Woodward APRN MUSIC INSTRUCTOR-C Primary Care Provider Active Team Status: Inactive Member Role Status Dates Machelle Woodward APRN MUSIC INSTRUCTOR-C Primary Care Provider Active Start: December 10, 2024 End: December 10, 2024 Edel De Los Santos APRN Attending Provider Active Start: December 10, 2024 End: December 10, 2024 Team Status: Inactive Member Role Status Dates Machelle Woodward APRN MUSIC INSTRUCTOR-C Primary Care Provider Active Start: January 20, 2025 End: January 20, 2025 Karen Alvarez RN Attending Provider Active Start: January 20, 2025 End: January 20, 2025 Team Status: Inactive Member Role Status Dates Machelle Woodward APRN MUSIC INSTRUCTOR-C Primary Care Provider Active Start: February 03, 2025 End: February 03, 2025 Karen Alvarez RN Attending Provider Active Start: February 03, 2025 End: February 03, 2025 Team Status: Inactive Member Role Status Dates Machelle Woodward APRN MUSIC INSTRUCTOR-C Primary Care Provider Active Start: February 16, 2025 End: February 16, 2025 SOFIA Caicedo Attending Provider Act alejandra Start: February 16, 2025 End: February 16, 2025 Team Status: Inactive Member Role Status Dates Machelle Woodward APRN MUSIC INSTRUCTOR-C Primary Care Provider Active Start: March 092024 End: March 18, 2025 Edel De Los Santos APRN Attending Provider Active Start: March 18, 2025 End: March 18, 2025 Goals (unrecognized section and content) Goals may be documented in a n alternate sectionGoals may be documented in an alternate sectionNot on filedocumented as of this encounterNot on filedocumented as of this encounterNot on filedocumented as of this encounterNot on filedocumented as of this encounterNot on filedocumented as of this encounterNot on filedocumented as of this encounterNot on filedocumented as of this encounterNot on filedocumented as of this encounterNot on filedocumented as of this encounterGoals may be documented in an alternate sectionGoals may be documented in an alternate sectionGoals may be documented in an alternate sectionGoals may be documented in an alternate sectionGoals may be documented in an alternate section Scheduled Active and Recently Administ ered Medications (unrecognized section and content) Medication Order 08/03/2024 08/04/2024 08/05/2024 acetaminophen (Tylenol) tablet 975 mg 975 mg, oral, 3 times daily, First dose on Sun08/05/24 at 0900, If ordered PRN for pain, nurse is permitted to administer this medication for higher pain scores based on patient preference? Yes 0842 (Not Given - Provider: Beverley Samayoa RN - Reason: Other - Comment: already given with earlier meds.)1627 (Given - Provider: Beverley Samayoa RN)2100 (Due) ibuprofen tablet 400 mg (COMPLETED) 400 mg, oral, 3 times daily (morning, midday, late afternoon), First dose on Sun08/05/24 at 0800, For 2 doses, May administer with food to reduce GI upset. 0727 (Given - Provider: Beverley Samayoa RN)1234 (Given - Provider: Beverley Samayoa RN) insulin glargine (Lantus) injection 15 Units (CANCELED) 15 Units, subcutaneous, Every 24 hours, First dose on Sun08/03/24 at 2100 2115 (Given - Provider: Shukri Patel RN) insulin glargine (Lantus) injection 20 Units (CANCELED) 20 Units, subcutaneous, Nightly, First dose (after last modification) on Sun08/04/24 at 2100 2017 (Given - Provider: Kristel Silvestre RN) insulin glargine (Lantus) injection 24 Units 24 Units, subcutaneous, Nightly, First dose (after last modification) on Sun08/05/24 at 2100 2100 (Due) insulin lispro injection 0-10 Units 0-10 Units, subcutaneous, 3 times daily before meals, First dose on Sun08/03/24 at 2245, Do not hold when patient is not eating, continue order as scheduled for hyperglycemia management. Insulin Lispro Corrective Scale #2 Hypoglycemia protocol Call LIP unit(s) if Blood Glucose is between 0 - 70 mg/dL 0 unit(s) if Blood glucose is between 71-150 2 unit(s) if Blood glucose is between 151-200 4 unit(s) if Blood glucose is between 201-250 6 unit(s) if Blood glucose is between 251-300 8 unit(s) if Blood glucose is between 301-350 10 unit(s) if Blood glucose is between 351-400 If blood glucose is greater than 400 mg/dL, give max insulin per sliding scale AND then contact provider. 2336 (Given - Provider: Shukri Patel RN) 0738 (Given - Provider: Opal Cross RN)1208 (Given - Provider: Janet Neil RN)1607 (Given - Provider: Janet Neil, ROMAN) 0730 (Given - Provider: Beverley Samayoa, ROMAN)1233 (Given - Provider: Beverley Samayoa RN - Comment: workflow)1628 (Given - Provider: Beverley Samayoa RN) insulin lispro injection 2 Units (COMPLETED) 2 Units, subcutaneous, Once, On Sun08/04/24 at 0130, For 1 dose 0144 (Given - Provider: Alpesh Chua RN) insulin lispro injection 5 Units (CANCELED) 5 Units, subcutaneous, 3 times daily before meals, First dose on Sun08/04/24 at 1100 1209 (Given - Provider: Janet Neil, ROMAN)1607 (Given - Provider: Janet Neil RN) 0731 (Given - Provider: Beverley Samayoa RN) insulin lispro injection 8 Units 8 Units, subcutaneous, 3 times daily before meals, First dose (after last modification) on Sun08/05/24 at 1100 1234 (Given - Provider: Beverley Samayoa RN - Comment: workflow)1628 (Given - Provider: Beverley Samayoa RN) iohexol (OMNIPaque) 350 mg iodine/mL solution 75 mL (COMPLETED) 75 mL, intravenous, Once in imaging, Starting on Sun08/03/24 at 1333, For 1 dose 1428 (Given - Provider: Emily Corea) ketorolac (Toradol) injection 60 mg (COMPLETED) 60 mg, intramuscular, Once, On Sun08/03/24 at 0850, For 1 dose 0855 (Given - Provider: Kem Heredia, EMT) oxyCODONE (Roxicodone) immediate release tablet 5 mg 5 mg, oral, Every 8 hours, First dose on Sun08/05/24 at 0900, If ordered PRN for pain, nurse is permitted to administer this medication for higher pain scores based on patient preference? Yes 1022 (Given - Provider: Beverley Samayoa RN - Comment: workflow)1732 (Given - Provider: Beverley Samayoa RN) polyethylene glycol (Glycolax, Miralax) packet 17 g 17 g, oral, Daily, First dose on Sun08/03/24 at 1325, Bowel Regimen - for prevention of constipation. 1446 (Not Given - Provider: Kell Montana RN - Reason: Patient/family refused) 0803 (Not Given - Provider: Opal Cross RN - Reason: Patient/family refused) 0727 (Given - Provider: Beverley Samayoa RN - Comment: workflow) potassium chloride 20 mEq in sterile water for injection 100 mL (COMPLETED) 20 mEq, intravenous, at 50 mL/hr, Administer over 2 Hours, Every 2 hours, First dose on Sun08/03/24 at 1720, For 2 doses, Total dose is 40 mEq via peripheral line. 172 (New Bag - Provider: Shukri Patel RN)2022 (New Bag - Provider: Shukri Patel RN - Comment: waiting on other bag to finish)2042 (Stopped - Provider: Shukri Patel RN)2247 (Stopped - Provider: Shukri Patel RN) potassium chloride CR (Klor-Con) ER tablet 40 mEq (COMPLETED) 40 mEq, oral, Once, On 08/03/24 at 1720, For 1 dose, Best given with food and plenty of water to minimize gastric irritation. Do not crush, chew, or split. 172 (Given - Provider: Shukri Patel RN) sodium chloride 0.9 % bolus 1,000 mL (COMPLETED) 1,000 mL, intravenous, at 999 mL/hr, Administer over 1 Hours, Once, On 08/03/24 at 1055, For 1 dose 1102 (New Bag - Provider: Amador Velásquez LPN)1159 (Stopped - Provider: Amador Velásquez LPN) sodium chloride 0.9 % bolus 1,000 mL (COMPLETED) 1,000 mL, intravenous, at 999 mL/hr, Administer over 1 Hours, Once, On 08/03/24 at 1220, For 1 dose 1246 (New Bag - Provider: Shukri Patel RN)1445 (Stopped - Provider: Kell Montana RN) sodium chloride 0.9 % bolus 1,000 mL (COMPLETED) 1,000 mL, intravenous, at 999 mL/hr, Administer over 1 Hours, Once, On 08/03/24 at 1220, For 1 dose, Recommended initial bolus is 15 - 20 mL/kg/hr 1246 (New Bag - Provider: Shukri Patel RN)1445 (Stopped - Provider: Kell Montana RN) sodium chloride 0.9 % bolus 1,000 mL (COMPLETED) 1,000 mL, intravenous, at 999 mL/hr, Administer over 1 Hours, Once, On 08/03/24 at 1325, For 1 dose, Recommended initial bolus is 15 - 20 mL/kg/hr 1600 (New Bag - Provider: Shukri Patel RN)1845 (Stopped - Provider: Shukri Patel RN) Continuous Medication Order 08/03/2024 08/04/2024 08/05/2024 insulin regular 100 unit/100 mL (1 unit/mL) in 0.9 % NaCl infusion (CANCELED) 0-50 Units/hr (0-50 mL/hr), intravenous, Continuous, Starting on 08/03/24 at 1220, When patient meets DKA criteria (blood glucose > 250 mg/dL, arterial pH < 7.3, bicarbonate < 15 mEq/L, and moderate ketonuria or ketonemia) AND K > 3.3 mmol/L : INITIATE infusion at 0.14 units/kg/hr (max initial rate of 15 units/hr) If CrCl less than 30 mL/min or known CKD: INITIATE at 0.05 units/kg/hr (max initial rate of 7 units/hr) Adjust based on every 1 hour capillary blood glucose results as follows: Step 1: goal decrease in blood glucose within 1 hour after initiation of insulin infusion: 50 mg/dL or 10% of initial blood glucose value (choose a or b based on initial BG drop) Step 1 (a): IF blood glucose decreases by < 50 mg/dL or < 10%: Bolus 0.1 units/kg (max 10 units) and continue infusion at same rate Step 1 (b): IF blood glucose decreases by 50 - 75 mg/dL or 10% AND still > 250 mg/dL continue same rate and reassess hourly Step 2: If within next 1 - 2 hours blood glucose still not less than or equal to 250 mg/dL increase infusion rate by 25% until blood glucose less than 250 mg/dL and notify provider. Step 3: notify provider when blood glucose less than than 250 mg/dL and assess anion gap; If anion gap closed proceed to step 4 Step 3: When blood glucose less than than 250 mg/dL AND anion gap still open (choose a, b, or c based on hourly blood glucose level): Step 3 (a): If blood glucose between 151 and 250 mg/dL and anion gap OPEN continue infusion at the same rate; see dextrose orders for changing fluids to D5W containing fluids; titrate insulin up/down as needed by 25% to maintain blood glucose between 151-250 mg/dL and notify provider; repeat this step as needed and titrate down to a minimum insulin infusion rate of 0.1 units/kg/hr Step 3 (b): If blood glucose between 70-150 mg/dL and AG open decrease insulin infusion rate by 50% notify provider; see dextrose orders for addition of D10; repeat this step as needed and if unable to maintain blood glucose > 150 mg/dL titrate down to a minimum insulin infusion rate of 0.5 units/hr Step 3 (c): If blood glucose less than 70 mg/dL and AG open HOLD insulin infusion for 15 minutes and see dextrose orders for dextrose administration. Recheck blood glucose 15 minutes after dextrose treatment. If glucose is greater than 70 mg/dL, resume insulin drip at 50% of previous rate. If glucose is still less than 70 mg/dL, repeat this step. Notify provider. if unable to maintain blood glucose > 150 mg/dL titrate down to a minimum insulin infusion rate of 0.5 units/hr Step 4 anion gap closed and DKA resolved Do not discontinue unless the following criteria for resolution of DKA is met and discussed with the provider: anion gap closed acidosis reversed tolerates oral feeds a plan for long acting insulin is established If DKA resolved and patient does not tolerate oral feeds/not eating reliably continue intravenous insulin infusion using the Intensive Insulin Algorithm with a target blood glucose of 140-180 mg/dL. IF DKA resolved and patient tolerating oral feeds/eating reliably discontinue insulin infusion 2 hours after administration of long acting SQ insulin. , Protocol Document: <a href=[email or web address]>, Other Initial Dose: 0.14 unit/kg/hr with max of 15 units/hr and 0.05 units/kg/hr and max of 7 units/hr for ckd or CrCl less than 30 mL/min 1305 (New Bag - Provider: Shukri Patel RN)1819 (Rate/Dose Change - Provider: Shukri Patel, ROMAN)2100 (Rate/Dose Change - Provider: Shukri Patel, ROMAN)2247 (Stopped - Provider: Shukri Patel RN) PRN Medication Order 08/03/2024 08/04/2024 08/05/2024 acetaminophen (Tylenol) tablet 650 mg (CANCELED) 650 mg, oral, Every 4 hours PRN, pain mild (1-3), first line, headaches, fever (temp greater than 38.0 C), Starting on 1/26/25 at 1745, If ordered PRN for pain, nurse is permitted to administer this medication for higher pain scores based on patient preference? Yes 175 (Given - Provider: Shukri Patel RN) 99 (Given - Provider: Alpesh Chua RN) D5 % and 0.9 % sodium chloride infusion (CANCELED) 150 mL/hr, intravenous, Continuous PRN, Initiate when blood glucose between 150 mg/dL - 250 mg/dL, Starting on 08/03/24 at 1320, For 1 day, Initiate when blood glucose between 150 mg/dL - 250 mg/dL. 152 (New Bag - Provider: Shukri Patel RN)2021 (New Bag - Provider: Shukri Patel RN)2108 (Stopped - Provider: Shukri Patel RN)2231 (New Bag - Provider: Shukri Patel RN)2246 (Stopped - Provider: Shukri Patel RN) dextrose 10 % in water (D10W) infusion (CANCELED) 150 mL/hr, intravenous, Continuous PRN, Initiate when blood glucose less than or equal to 150 mg/dL and anion gap still open, Starting on 08/03/24 at 1320, For 1 day, Initiate when blood glucose less than or equal to 150 mg/dL and anion gap still open. 2109 (New Bag - Provider: Shukri Patel RN)2231 (Stopped - Provider: Shukri Patel RN) dextrose 10 % in water (D10W) infusion (CANCELED) 150 mL/hr, intravenous, Continuous PRN, Initiate blood glucose less than 70 mg/dL and anion gap still open, Starting on 08/03/24 at 1320, For 1 day, Initiate blood glucose less than 70 mg/dL and anion gap still open. 183 (New Bag - Provider: Shukri Patel RN)2021 (Stopped - Provider: Shukri Patel RN) dextrose 50 % injection 12.5 g 12.5 g, intravenous, Every 15 min PRN, For blood glucose 41 to 70 mg/dL, Starting on 08/03/24 at 2240, May repeat until blood glucose level reaches 100 mg/dL or greater. Push 2 - 3 mL/minute if patient has secure IV access. dextrose 50 % injection 25 g 25 g, intravenous, Every 15 min PRN, For blood glucose less than or equal to 40 mg/dL, Starting on 08/03/24 at 2240, May repeat until blood glucose level reaches 100 mg/dL or greater. Push 2 - 3 mL/minute if patient has secure IV access. glucagon (Glucagen) injection 1 mg 1 mg, intramuscular, Every 15 min PRN, blood glucose less than or equal to 40 mg/dL - see comments, For blood glucose less than or equal to 40 mg/dL and no IV access, Starting on 08/03/24 at 2240, Give until blood glucose is 100 mg/dL or greater. If patient DOES NOT HAVE secure IV access & patient is unconscious, NPO or is unable to eat or drink. glucagon (Glucagen) injection 1 mg 1 mg, intramuscular, Every 15 min PRN, blood glucose 41 to 70 mg/dL - see comments, For blood glucose 41 to 70 mg/dL and no IV access, Starting on 08/03/24 at 2240, Give until blood glucose is 100 mg/dL or greater. If patient DOES NOT HAVE secure IV access & patient is unconscious, NPO or is unable to eat or drink. ondansetron (Zofran) injection 4 mg(Linked Group 1) 4 mg, intravenous, Every 8 hours PRN, nausea/vomiting, first line, Starting on 08/03/24 at 1319, 1st Line. Give IV if patient is unable to take orally. If inadequate response within 60 minutes, proceed to next-line agent for same PRN reason or contact provider if no further options ordered. When administering via IV Push, administer over 3-5 minutes. ondansetron (Zofran) tablet 4 mg(Linked Group 1) 4 mg, oral, Every 8 hours PRN, nausea/vomiting, first line, Starting on 08/03/24 at 1319, 1st Line. Use oral route first, if possible. If inadequate response within 60 minutes, proceed to next-line agent for same PRN reason or contact provider if no further options ordered. oxyCODONE-acetaminophen (Percocet) 5-325 mg per tablet 1 tablet (CANCELED) 1 tablet, oral, Every 6 hours PRN, pain severe (7-10), first line, Starting on 08/03/24 at 1911, If ordered PRN for pain, nurse is permitted to administer this medication for higher pain scores based on patient preference? Yes 191 (Given - Provider: Shukri Patel RN) oxyCODONE-acetaminophen (Percocet) 5-325 mg per tablet 1 tablet (CANCELED) 1 tablet, oral, Every 4 hours PRN, pain severe (7-10), first line, Starting on 08/04/24 at 0125, If ordered PRN for pain, nurse is permitted to administer this medication for higher pain scores based on patient preference? Yes 0144 (Given - Provider: Alpesh Chua RN)0803 (Given - Provider: Opal Cross, ROMAN)1209 (Given - Provider: Janet Neil, ROMAN)1609 (Given - Provider: Janet Neil RN)2017 (Given - Provider: Kristel Silvestre, ROMAN) 0033 (Given - Provider: Kristel Silvestre, ROMAN)0430 (Given - Provider: Kristel Silvestre RN) tiZANidine (Zanaflex) tablet 4 mg 4 mg, oral, Every 6 hours PRN, muscle spasms, Starting on Sun08/05/24 at 0830 0844 (Given - Provider: Beverley Samayoa, ROMAN)1626 (Given - Provider: Beverley Samayoa, ROMAN) traMADol (Ultram) tablet 50 mg (CANCELED) 50 mg, oral, Every 6 hours PRN, pain moderate (4-6), first line, Starting on 08/03/24 at 1545, If ordered PRN for pain, nurse is permitted to administer this medication for higher pain scores based on patient preference? Yes 175 (Given - Provider: Shukri Patel, ROMAN) 2217 (Given - Provider: Kristel Silvestre, ROMAN) 0727 (Given - Provider: Beverley Samayoa, ROMAN) Linked Groups Order Group 1: ondansetron (Zofran) tablet 4 mgJump to med 4 mg, oral, Every 8 hours PRN, nausea/vomiting, first line, Starting on 08/03/24 at 1319, 1st Line. Use oral route first, if possible. If inadequate response within 60 minutes, proceed to next-line agent for same PRN reason or contact provider if no further options ordered. Or ondansetron (Zofran) injection 4 mgJump to med 4 mg, intravenous, Every 8 hours PRN, nausea/vomiting, first line, Starting on Sun08/03/24 at 1319, 1st Line. Give IV if patient is unable to take orally. If inadequate response within 60 minutes, proceed to next-line agent for same PRN reason or contact provider if no further options ordered. When administering via IV Push, administer over 3-5 minutes. Scheduled Medication Order 08/25/2024 08/26/2024 08/27/2024 ceFAZolin (ANCEF) 2000 mg in sterile water 20 mL IV syringe (CANCELED) 2,000 mg, IntraVENous, EVERY 8 HOURS, First dose on Sun08/24/24 at 1600, For 19 doses, Administer over 5 mins. 0014 (Given - Provider: Hattie Wang RN)0817 (Given - Provider: Candelaria Miranda RN) cefTRIAXone (ROCEPHIN) 2,000 mg in sterile water 20 mL IV syringe 2,000 mg, IntraVENous, EVERY 24 HOURS, First dose on Sun08/25/24 at 1000, Administer as slow IV Push over 5 mins Reconstitute 2 g vials with 19.2 mL of designated diluent to produce a 100mg/mL solution 1109 (Given - Provider: Candelaria Miranda RN) 1031 (Given - Provider: Candelaria Miranda RN) 0926 (Given - Provider: Phu Roberts, ROMAN) cyclobenzaprine (FLEXERIL) tablet 10 mg 10 mg, Oral, 3 TIMES DAILY, First dose on Sun08/26/24 at 1400, Until Discontinued 1320 (Given - Provider: Evelia Syed RN)2030 (Given - Provider: Nevaeh Dewey, ROMAN) 0927 (Given - Provider: Phu Roberts, RN)1438 (Given - Provider: Phu Roberts, RN)2100 (Due) enoxaparin (LOVENOX) injection 40 mg 40 mg, SubCUTAneous, DAILY, First dose on Sun08/22/24 at 0900, Until Discontinued, Indication of Use: Treatment-DVT/PE, Administer by deep subCUTAneous injection with pt lying down. Alternate injection sites on abdominal wall. Do not rub site after injection. Check with provider prior to any invasive procedure. 0817 (Given - Provider: Candelaria Miranda RN) 09 (Given - Provider: Candelaria Miranda RN) 09 (Not Given - Provider: Phu Roberts, ROMAN - Reason: Patient/family refused) gabapentin (NEURONTIN) capsule 100 mg (CANCELED) 100 mg, Oral, 3 TIMES DAILY, First dose on Demi 08/21/24 at 2145, Until Discontinued 08 (Given - Provider: Candelaria Miranda RN)141 (Given - Provider: Candelaria Miranda RN)2014 (Given - Provider: Jewels Lindsay, ROMAN) 09 (Given - Provider: Candelaria Miranda RN) gabapentin (NEURONTIN) capsule 300 mg 300 mg, Oral, 3 TIMES DAILY, First dose (after last modification) on Sun08/26/24 at 1400, Until Discontinued 132 (Given - Provider: Evelia Syed RN)2028 (Given - Provider: Nevaeh Dewey, ROMAN) 09 (Given - Provider: Phu Roberts, ROMAN)143 (Given - Provider: Phu Roberts, ROMAN)2099 (Due) insulin glargine (LANTUS) injection vial 30 Units(Linked Group 1) 30 Units, SubCUTAneous, NIGHTLY, First dose (after last modification) on Sun08/25/24 at 2100, Until Discontinued, Hold for blood sugar less than 120 2015 (Given - Provider: Jewels Lindsay, ROMAN - Comment: poct 199) 2029 (Given - Provider: Nevaeh Dewey, RN) 2099 (Due) insulin glargine (LANTUS) injection vial 34 Units (CANCELED) 34 Units, SubCUTAneous, DAILY, First dose (after last modification) on Sun08/23/24 at 0900, Until Discontinued 08 (Given - Provider: Candelaria Miranda RN) insulin glargine (LANTUS) injection vial 34 Units(Linked Group 1) 34 Units, SubCUTAneous, DAILY, First dose (after last modification) on Sun08/26/24 at 0900, Until Discontinued, Hold for blood sugar less than 120 09 (Given - Provider: Candelaria Miranda RN) 09 (Given - Provider: Phu Roberts, ROMAN) insulin lispro (HUMALOG,ADMELOG) injection vial 0-8 Units 0-8 Units, SubCUTAneous, 4 TIMES DAILY BEFORE MEALS & NIGHTLY, First dose on Sun08/22/24 at 1700, Until Discontinued, Medium Dose Corrective Algorithm Glucose: Dose: 70-179 No Insulin 180-249 2 Units 250-299 4 Units 300-349 6 Units Over 349 8 Units and notify physician Administer as soon as possible within 60 minutes of last blood glucose check 0819 (Given - Provider: Candelaria Miranda RN)1153 (Not Given - Provider: Candelaria Miranda RN - Reason: Order parameters not met)1745 (Given - Provider: Candelaria Miranda RN)2014 (Given - Provider: Jewels Lindsay RN - Comment: poct 199) 0722 (Not Given - Provider: Candelaria Miranda RN - Reason: Order parameters not met)1213 (Given - Provider: Candelaria Miranda RN)165 (Given - Provider: Candelaria Miranda RN)2029 (Given - Provider: Nevaeh Dewey RN) 0705 (Not Given - Provider: Nevaeh Dewey RN - Reason: Order parameters not met)1202 (Given - Provider: Phu Roberts RN)1744 (Not Given - Provider: Phu Roberts RN - Reason: Order parameters not met)2100 (Due) ketorolac (TORADOL) injection 30 mg (COMPLETED) 30 mg, IntraVENous, ONCE, 1 dose, On Sun08/25/24 at 2200, Do not administer for more than 5 days. 214 (Given - Provider: Jewels Lindsay RN) lidocaine 4 % external patch 1 patch 1 patch, TransDERmal, Administer over 12 Hours, DAILY, First dose on Sun08/26/24 at 1230, Apply patch to back. The compress engineer's recommendations for the number of patches that can be applied within a 24-hour period varies from 1 to 4 times daily and the duration of application varies from 8 to 24 hours; refer to the compress engineer's labeling for product-specific recommendations. 1213 (Patch Applied - Provider: Candelaria Miranda RN) 0030 (Patch Removed - Provider: Nevaeh Dewey RN)0926 (Patch Applied - Provider: Phu Roberts RN)2126 (Due: Patch Removed - Provider: Phu Roberts, RN) lidocaine PF 1 % injection 50 mg 50 mg, IntraDERmal, ONCE, 1 dose, On Sun08/25/24 at 0930 0930 (Due) morphine (PF) injection 2 mg (COMPLETED) 2 mg, IntraVENous, ONCE, 1 dose, On Tu08/26/24 at 1045, If oral and IV narcotics ordered, use oral first and only use IV if oral is ineffective or cannot take oral. Do Not give oral and IV within 1 hour of each other unless specifically ordered. 1030 (Given - Provider: Candelaria Miranda RN) pantoprazole (PROTONIX) tablet 40 mg 40 mg, Oral, DAILY BEFORE BREAKFAST, First dose on Sun08/22/24 at 0700, Until Discontinued, Do not crush or break. 0613 (Given - Provider: Hattie Wang RN) 06 (Given - Provider: Jewels Lindsay, ROMAN) 05 (Given - Provider: Nevaeh Dewey, RN) sodium chloride flush 0.9 % injection 5-40 mL 5-40 mL, IntraVENous, EVERY 12 HOURS SCHEDULED (2 times per day), First dose on Sun08/25/24 at 0930, Until Discontinued, For Line Patency: Peripheral IV = 5 mL; Midline or Central Line = 10 mL/lumen. If following IV push medication, administer flush at same rate as the IV push. Flush volume is determined by type of infusion therapy being given. For non-viscous solutions use: Peripheral IV = 5 mL Midline or Central Line = 10 mL/lumen For viscous solutions (i.e. blood components, parenteral nutrition, contrast media, or after obtaining blood sample) use: Peripheral IV = 10 mL Midline or Central Line = 20 mL/lumen 1109 (Given - Provider: Candelaria Miranda RN)2015 (Given - Provider: Jewels Lindsay, ROMAN) 09 (Given - Provider: Candelaria Miranda RN)2033 (Given - Provider: Nevaeh Dewey, ROMAN) 926 (Given - Provider: Phu Roberts, RN)2099 (Due) sodium chloride flush 0.9 % injection 5-40 mL 5-40 mL, IntraVENous, EVERY 12 HOURS SCHEDULED (2 times per day), First dose on Sun08/21/24 at 2100, Until Discontinued, For Line Patency: Peripheral IV = 5 mL; Midline or Central Line = 10 mL/lumen. If following IV push medication, administer flush at same rate as the IV push. Flush volume is determined by type of infusion therapy being given. For non-viscous solutions use: Peripheral IV = 5 mL Midline or Central Line = 10 mL/lumen For viscous solutions (i.e. blood components, parenteral nutrition, contrast media, or after obtaining blood sample) use: Peripheral IV = 10 mL Midline or Central Line = 20 mL/lumen 0818 (Given - Provider: Candelaria Miranda, RN)2015 (Given - Provider: Jewels Lindsay, RN) 1031 (Given - Provider: Candelaria Miranda RN)203 (Given - Provider: Nevaeh Dewey, ROMAN) 0928 (Given - Provider: Phu Roberts RN)2100 (Due) PRN Medication Order 08/25/2024 08/26/2024 08/27/2024 0.9 % sodium chloride infusion IntraVENous, at 5-250 mL/hr, PRN, if patient receiving piggyback infusions and maintenance fluids are not ordered, Starting on 08/25/24 at 0911, For piggyback infusion, administer at same rate as piggyback for a total of 25 mL. Enter 25 mL into dose field and piggyback rate into rate field of order. If piggyback is infusing at a rate less than 100 mL/hr, enter 25 mL into dose field and 100 mL/hr into rate field of order. 0.9 % sodium chloride infusion IntraVENous, at 5-250 mL/hr, PRN, if patient receiving piggyback infusions and maintenance fluids are not ordered OR KVO fluids to protect IV site / prevent frequent line interruptions/ long duration, Starting on Demi 08/21/24 at 1936, For piggyback infusion, administer at same rate as piggyback for a total of 25 mL. Enter 25 mL into dose field and piggyback rate into rate field of order. If piggyback is infusing at a rate less than 100 mL/hr, enter 25 mL into dose field and 100 mL/hr into rate field of order. For KVO fluids, enter rate of 20 mL/hr or less into rate field of order. acetaminophen (TYLENOL) tablet 1,000 mg 1,000 mg, Oral, EVERY 8 HOURS PRN, Starting on Demi 08/21/24 at 2123, Until Discontinued, Pain Moderate (4-6), Pain Mild (1-3), Maximum dose of acetaminophen is 4000 mg from all sources in 24 hours. 2014 (Given - Provider: Jewels Lindsay RN) 1820 (Given - Provider: Candelaria Miranda RN) acetaminophen (TYLENOL) tablet 650 mg 650 mg, Oral, EVERY 4 HOURS PRN, Starting on Sun08/22/24 at 1720, Until Discontinued, Pain Mild (1-3), Fever, Fever >100.5 F (38 C), Maximum dose of acetaminophen is 4000 mg from all sources in 24 hours., Recovery(IR) 2342 (Given - Provider: Jewels Lindsay RN) dextrose 10 % infusion IntraVENous, at 100 mL/hr, CONTINUOUS PRN, if blood glucose remains LESS THAN 70 mg/dL after 2 dextrose 10% intravenous boluses or administration of glucagon, Starting on Demi 08/21/24 at 1936, If blood glucose fails to stabilize after 2 dextrose 10% intravenous boluses or glucagon administration, start dextrose 10% infusion at 100 mL/hour and repeat blood glucose at 30 and 60 minutes. If blood glucose is GREATER THAN 70 mg/dL after 60 minutes, discontinue dextrose 10% infusion. dextrose bolus 10% 125 mL(Linked Group 2) 125 mL, IntraVENous, at 937.5 mL/hr, Administer over 8 Minutes, PRN, Other, Blood glucose 40 - 69 mg/dL and patient NOT ALERT or NPO, Starting on Demi 08/21/24 at 1936, Repeat blood glucose in 15 minutes. If blood glucose remains LESS THAN 70 mg/dL, repeat treatment and recheck blood glucose in 15 minutes x 2. If using glycemic management system, dose as instructed per system. If blood glucose remains LESS THAN 70 mg/dL after 2 intravenous boluses start dextrose 10% at 100 mL/hour and notify provider. dextrose bolus 10% 250 mL(Linked Group 2) 250 mL, IntraVENous, at 937.5 mL/hr, Administer over 16 Minutes, PRN, Other, Blood glucose LESS THAN 40 mg/dL and patient NOT ALERT or NPO, Starting on Demi 08/21/24 at 1936, Repeat blood glucose in 15 minutes. If blood glucose remains LESS THAN 70 mg/dL, repeat treatment and recheck blood glucose in 15 minutes x 2. If using glycemic management system, dose as instructed per system. If blood glucose remains LESS THAN 70 mg/dL after 2 intravenous boluses start dextrose 10% at 100 mL/hour and notify provider. glucagon injection 1 mg 1 mg, SubCUTAneous, PRN, Starting on Demi 08/21/24 at 1936, Until Discontinued, Low blood sugar, Blood glucose LESS THAN 70 mg/dL and patient NOT ALERT or NPO and does not have IV access., After administration, attempt intravenous access and start dextrose 10% at 100 mL/hr. Repeat blood glucose in 15 minutes x 2 and notify provider. Reconstitute powder for injection by adding 1 mL of compress engineer-supplied sterile diluent or sterile water for injection to a vial containing 1 mg of the drug, to provide solutions containing 1 mg/mL. Shake vial gently to dissolve. glucose chewable tablet 16 g 16 g (4 tablet), Oral, PRN, Starting on Demi 08/21/24 at 1936, Until Discontinued, Low blood sugar, If blood glucose is LESS THAN 70 mg/dL and patient is alert and tolerating oral. Give 4 tablets (16g) Repeat blood glucose in 15 minutes. If blood glucose is LESS THAN 70 mg/dL, repeat treatment and recheck blood glucose in 15 minutes x 2. If blood glucose remains LESS THAN 70 mg/dL, notify provider. HYDROmorphone (DILAUDID) injection 1 mg () 1 mg, IntraVENous, EVERY 2 HOURS PRN, Starting on 08/23/24 at 1712, Until 08/25/24 at 1711, Pain Severe (7-10), If oral and IV narcotics ordered, use oral first and only use IV if oral is ineffective or cannot take oral. Do Not give oral and IV within 1 hour of each other unless specifically ordered. 0014 (Given - Provider: Hattie Wang RN)0334 (Given - Provider: Hattie Wang RN)0613 (Given - Provider: Hattie Wang, ROMAN) oxyCODONE (ROXICODONE) immediate release tablet 10 mg 10 mg, Oral, EVERY 6 HOURS PRN, Starting on 08/22/24 at 0833, Until Discontinued, Pain Severe (7-10) 0223 (Given - Provider: Hattie Wang, ROMAN)0817 (Given - Provider: Candelaria Miranda, RN)1416 (Given - Provider: Candelaria Miranda, ROMAN)2014 (Given - Provider: Jewels Lindsay, ROMAN) 0217 (Given - Provider: Jewels Lindsay RN)0906 (Given - Provider: Candelaria Miranda RN)1524 (Given - Provider: Candelaria Miranda RN)2315 (Given - Provider: Nevaeh Dewey, ROMAN) 0517 (Given - Provider: Nevaeh Dewey RN)1659 (Given - Provider: Phu Roberts RN) oxyCODONE (ROXICODONE) immediate release tablet 5 mg 5 mg, Oral, EVERY 6 HOURS PRN, Starting on Sun08/22/24 at 0833, Until Discontinued, Pain Moderate (4-6) sodium chloride flush 0.9 % injection 5-40 mL 5-40 mL, IntraVENous, PRN, Starting on Sun08/25/24 at 0911, Until Discontinued, Line Care, After every IV line use, For Line Patency: Peripheral IV = 5 mL; Midline or Central Line = 10 mL/lumen. If following IV push medication, administer flush at same rate as the IV push. Flush volume is determined by type of infusion therapy being given. For non-viscous solutions use: Peripheral IV = 5 mL Midline or Central Line = 10 mL/lumen For viscous solutions (i.e. blood components, parenteral nutrition, contrast media, or after obtaining blood sample) use: Peripheral IV = 10 mL Midline or Central Line = 20 mL/lumen sodium chloride flush 0.9 % injection 5-40 mL 5-40 mL, IntraVENous, PRN, Starting on Sun08/21/24 at 1936, Until Discontinued, Line Care, After every IV line use, For Line Patency: Peripheral IV = 5 mL; Midline or Central Line = 10 mL/lumen. If following IV push medication, administer flush at same rate as the IV push. Flush volume is determined by type of infusion therapy being given. For non-viscous solutions use: Peripheral IV = 5 mL Midline or Central Line = 10 mL/lumen For viscous solutions (i.e. blood components, parenteral nutrition, contrast media, or after obtaining blood sample) use: Peripheral IV = 10 mL Midline or Central Line = 20 mL/lumen Linked Groups Order Group 1: insulin glargine (LANTUS) injection vial 34 UnitsJump to med 34 Units, SubCUTAneous, DAILY, First dose (after last modification) on Sun08/26/24 at 0900, Until Discontinued, Hold for blood sugar less than 120 And insulin glargine (LANTUS) injection vial 30 UnitsJump to med 30 Units, SubCUTAneous, NIGHTLY, First dose (after last modification) on Sun08/25/24 at 2100, Until Discontinued, Hold for blood sugar less than 120 Group 2: dextrose bolus 10% 125 mLJump to med 125 mL, IntraVENous, at 937.5 mL/hr, Administer over 8 Minutes, PRN, Other, Blood glucose 40 - 69 mg/dL and patient NOT ALERT or NPO, Starting on Demi 08/21/24 at 1936, Repeat blood glucose in 15 minutes. If blood glucose remains LESS THAN 70 mg/dL, repeat treatment and recheck blood glucose in 15 minutes x 2. If using glycemic management system, dose as instructed per system. If blood glucose remains LESS THAN 70 mg/dL after 2 intravenous boluses start dextrose 10% at 100 mL/hour and notify provider. Or dextrose bolus 10% 250 mLJump to med 250 mL, IntraVENous, at 937.5 mL/hr, Administer over 16 Minutes, PRN, Other, Blood glucose LESS THAN 40 mg/dL and patient NOT ALERT or NPO, Starting on Demi 08/21/24 at 1936, Repeat blood glucose in 15 minutes. If blood glucose remains LESS THAN 70 mg/dL, repeat treatment and recheck blood glucose in 15 minutes x 2. If using glycemic management system, dose as instructed per system. If blood glucose remains LESS THAN 70 mg/dL after 2 intravenous boluses start dextrose 10% at 100 mL/hour and notify provider. FOR RECORDS PERTAINING TO PATIENTS WHO ARE OR HAVE BEEN ENROLLED IN A CHEMICAL DEPENDENCY/SUBSTANCEABUSE PROGRAM, SOME INFORMATION MAY BE OMITTED. This clinical summary was aggregated from multiple sources. Caution should be exercised in using it in the provision of clinical care. This summary normalizes information from multiple sources, and as a consequence, information in this document may materially change the coding, format and clinical context of patient data. In addition, data may be omitted in some cases. CLINICAL DECISIONS SHOULD BE BASED ON THE PRIMARY CLINICAL RECORDS. [employer] provides no warranty or guarantee of the accuracy or completeness of information in this document.
[2025-03-28 10:25] LABS: Alanine Aminotransferase 15 U/L (16-63); Albumin Globulin Ratio 1.3; Albumin Level 3.9 g/dL (3.4-5.0); Alkaline Phosphatase 94 U/L (46-116); Anion Gap 12.9; Aspartate Amino Transferase 15 U/L (15-37); Blood Urea Nitrogen 12.0 mg/dL (7.0-18.0); Calcium 8.9 mg/dL (8.5-10.1); Carbon Dioxide 26.1 mmol/L (21.0-32.0); Chloride 107 mmol/L (98-107); Cholesterol 123 mg/dL (<=200); Estimated GFR (African America >60 (>=60 mL/min/1.73m^2); Estimated GFR (Non-African Ame >60 (>=60 mL/min/1.73m^2); Globulin 3.1 g/dL; Glucose 145 mg/dL (74-106); HDL Cholesterol 68 mg/dL (40-60); Potassium 4.0 mmol/L (3.5-5.1); Sodium 142 mmol/L (136-145); TSH W/ REFLEX FT4 0.995 uIU/mL (0.358-3.740); Total Protein 7.0 g/dL (6.4-8.2); Triglycerides 32 mg/dL (<=150); VLDL CHOLESTEROL 6.4 mg/dL
== END 2025-03-28 07:56 | disposition home or self-care (01) ==
PROVIDERS: PCP Nurse Practitioner Family
DX: E78.5 Hyperlipidemia, unspecified (principal); E10.9 Type 1 diabetes mellitus without complications
CPT/HCPCS: 36415; 80053; 80061; 82043; 82570; 84443; 84681; 86337; 86341